=== PATIENT | female | born 1940 ===

== ENCOUNTER 2017-01-07 09:35 | Inpatient (IN) | payer MEDICARE, MEDICAID ==
[2017-01-07] MEDS ORDERED: Piperacillin/Tazobact 3.375 gm 100 ML IV STA (10:01)
[2017-01-07 10:16] LABS: VENOUS BLOOD GAS BASE EXCESS -0.1 mmol/L (0.0-2.0); VENOUS BLOOD GAS PCO2 70 mmHg (40-60); VENOUS BLOOD PH 7.23 (7.32-7.43)
--- NOTE | 2017-01-07 10:20 | RAD ---
HISTORY: Sepsis Patient COMPARISON: 05/11/2016 FINDINGS: LUNGS: Prominent diffuse increased interstitial lung markings suggestive for moderate venous congestion and/or interstitial infiltrates. Prominent patchy consolidative changes in the right mid to lower lung zone as well as the left lung base. Small bilateral pleural effusions. Biapical pleural thickening with upper lobe granulomatous changes. PLEURA: As above. CARDIOVASCULAR: Cardiomegaly. Calcification at the aortic knob. OSSEOUS STRUCTURES: Degenerative changes in the spine and shoulders. VISUALIZED UPPER ABDOMEN: Normal. OTHER FINDINGS: None. IMPRESSION: Prominent diffuse increased interstitial lung markings suggestive for moderate venous congestion and/or interstitial infiltrates. Prominent patchy consolidative changes in the right mid to lower lung zone as well as the left lung base. Small bilateral pleural effusions. Biapical pleural thickening with upper lobe granulomatous changes.
--- NOTE | 2017-01-07 10:34 | C.PDOC ---
History Of Present Illness 76 y/o female brought to ED by ALS from retirement for altered mental status. As per ALS patient was hypoxic and responding poorly to questions. At ed patient was febrile 100.9 and was given bipap. Patient denies pain, fever, chills, nausea, vomiting or any other complaints at this time. Time Seen by Provider: 01/07/17 09:51 Chief Complaint (Nursing): Respiratory Distress History Per: Patient, EMS History/Exam Limitations: Clinical Condition Onset/Duration Of Symptoms: Hrs Current Symptoms Are (Timing): Still Present Past Medical History Reviewed: Historical Data, Nursing Documentation, Vital Signs Vital Signs: Last Vital Signs Temp 100.9 F H 01/07/17 10:47 Pulse 107 H 01/07/17 11:57 Resp 20 01/07/17 11:57 BP 109/66 01/07/17 11:57 Pulse Ox 94 L 01/07/17 12:03 - Medical History PMH: Anemia, Anxiety, Arthritis, Cardia Arrhythmia, COPD, Depression, HTN, Hyperlipidemia, Multiple Sclerosis, Osteoporosis, Peripheral Edema, Pulmonary Embolism, Chronic Kidney Disease, Rheumatoid Arthritis Surgical History: No Surg Hx - [facility] Procedures EXCISION OF TOE NAIL, EXTERNAL APPROACH (05/06/16) INSERT INFUSION DEV IN R INT JUGULAR VEIN, PERC (07/31/15) INSERTION OF INFUSION DEV INTO SUP VENA CAVA, PERC APPROACH (05/06/16) INTRODUCE OF OTH ANTI-INFECT INTO PERIPH VEIN, PERC APPROACH (07/31/15) INTRODUCTION OF VASOPRESSOR INTO PERIPH VEIN, PERC APPROACH (05/06/16) TRANSFUSE NONAUT FROZEN PLASMA IN PERIPH VEIN, PERC (07/31/15) ULTRASONOGRAPHY OF RIGHT JUGULAR VEINS, GUIDANCE (07/31/15) Family History: States: No Known Family Hx - Social History Hx Alcohol Use: No Hx Substance Use: No - Immunization History Hx Tetanus Toxoid Vaccination: No Hx Influenza Vaccination: No Hx Pneumococcal Vaccination: No Review Of Systems Except As Marked, All Systems Reviewed And Found Negative. Constitutional: Negative for: Fever, Chills Cardiovascular: Negative for: Chest Pain Gastrointestinal: Negative for: Nausea, Vomiting Skin: Negative for: Rash Neurological: Positive for: Altered Mental Status. Negative for: Weakness, Numbness Physical Exam - Physical Exam Appears: Non-toxic, No Acute Distress Skin: Warm, Dry, No Rash, Mottled Head: Atraumatic Eye(s): bilateral: Normal Inspection Oral Mucosa: Moist Neck: Normal ROM, Supple Chest: Symmetrical Cardiovascular: Rhythm Regular, No Murmur Respiratory: Normal Breath Sounds, No Rales, Rhonchi (at bilateral base), No Wheezing Gastrointestinal/Abdominal: Soft, No Distention, No Guarding, No Rebound, Other (obese) Rectal: Other (Gross blood ) Neurological/Psych: Oriented x3, Other (Slow to respond to questions) ED Course And Treatment - Laboratory Results Result Diagrams: 01/07/17 10:28 01/07/17 11:54 O2 Sat by Pulse Oximetry: 94 (RA) - Radiology CXR: Interpreted by Me, Viewed By Me CXR Interpretation: Yes: Infiltrates (to right lung field) Medical Decision Making Medical Decision Making: Plan: * Code sepsis was activated and patient was given antibiotics * Discussed with Dr. Dumont who is requesting patient have ICU evaluation. * Dr. Bonilla at the bedside, will admit to ICU Disposition Discussed With Dr.: Janell Bonilla Doctor Will See Patient In The: Hospital Counseled Patient/Family Regarding: Studies Performed - Disposition Disposition Time: 13:43 Condition: CRITICAL Forms: [facility] (Andorran) - Clinical Impression Clinical Impression: Dyspnea, Sepsis - Scribe Statement The provider has reviewed the documentation as recorded by the Scribtrina Rod All medical record entries made by the Scribe were at my direction and personally dictated by me. I have reviewed the chart and agree that the record accurately reflects my personal performance of the history, physical exam, medical decision making, and the department course for this patient. I have also personally directed, reviewed, and agree with the discharge instructions and disposition. Decision To Admit - Pt Status Changed To: Hospital Disposition Of: Inpatient - Admit Certification Admit to Inpatient:: After my assessment, the patient will require hospitalization for at least two midnights. This is because of the severity of symptoms shown, intensity of services needed, and/or the medical risk in this patient being treated as an outpatient. - InPatient: Physician Admission Certification:: sepsis - . Bed Request Type: ICU Patient Diagnosis: Dyspnea, Sepsis
[2017-01-07 10:35] LABS: BASO % 0.3 % (0.0-2.0); HEMATOCRIT 51.1 % (34.0-47.0); LYMPH # 1.4 K/uL (1.0-4.3); LYMPH % 14.2 % (20.0-40.0); MEAN CELL VOLUME 96.1 fL (81.0-99.0); MEAN CORPUSCULAR HEMOGLOBIN 31.6 pg (27.0-31.0); MEAN CORPUSCULAR HGB CONC 32.9 g/dL (33.0-37.0); MEAN PLATELET VOLUME 9.3 fL (7.2-11.7); MONO # 0.3 K/uL (0.0-0.8); MONO % 3.3 % (0.0-10.0); NRBC % 0.4 % (0.0-2.0); PLATELET COUNT 167 K/uL (130-400); WHITE BLOOD COUNT 10.1 K/uL (4.8-10.8)
[2017-01-07] MEDS ORDERED: Vancomycin 1 gm/NS 200 ml 1 GM/200 ML BAG IVPB ONE (11:00)
[2017-01-07 11:09] LABS: NEUTROPHIL 25 % (50-75); TOTAL CELLS COUNTED 100
[2017-01-07] MEDS ORDERED: Piperacillin/Tazobact 3.375 gm 100 ML IVPB ONE (11:19)
[2017-01-07] MEDS ORDERED: Vancomycin 1 GM 1 GM/250 ML BAG IVPB ONE (11:19)
[2017-01-07] MEDS ORDERED: Sodium Chloride 0.9% 250 ML IV ONE (11:47)
[2017-01-07] MEDS ORDERED: Sodium Chloride 0.9% 2,000 ML ONE (11:47)
[2017-01-07 12:16] LABS: ALKALINE PHOSPHATASE 80 U/L (38-126); ALT/SGPT 81 U/L (9-52); AST/SGOT 30 U/L (14-36); BILIRUBIN,TOTAL 1.1 mg/dL (0.2-1.3); BLOOD UREA NITROGEN 46 mg/dL (7-17); CALCIUM 7.7 mg/dl (8.6-10.4); CARBON DIOXIDE 23 mmol/L (22-30); CHLORIDE 104 mmol/L (98-107); GFR AFRICAN-AMERICAN > 60; GLUCOSE,RANDOM 123 mg/dL (65-105); MAGNESIUM 2.1 mg/dL (1.6-2.3); PHOSPHOROUS 5.1 mg/dL (2.5-4.5); POTASSIUM 5.1 mmol/L (3.6-5.2); SODIUM 139 mmol/L (132-148); TOTAL PROTEIN 5.4 g/dL (6.3-8.3)
[2017-01-07 13:05] LABS: RBC URINE 2 /hpf (0-3); URINE BILIRUBIN NEGATIVE (NEGATIVE); URINE BLOOD 1+ (NEGATIVE); URINE COLOR Amber (YELLOW); URINE GLUCOSE (UA) NORMAL (Normal); URINE KETONE NEGATIVE (NEGATIVE); URINE LEUKOCYTE ESTERASE NEG Leu/uL (Negative); URINE PROTEIN 1+ mg/dL (NEGATIVE); WBC URINE 4 /hpf (0-5)
[2017-01-07 13:38] LABS: ABG ALLEN TEST UNABLE; ARTERIAL BLOOD GAS MODE BiPAP; DRAW SITE LR
[2017-01-07] MEDS ORDERED: Albuterol-Ipratrop 3 mg / 0.5 (3 ml) UD ONE (13:43)
--- NOTE | 2017-01-07 17:33 | CP.PCM.CON ---
History of Present Illness - History of Present Illness History of Present Illness: 76 year oll [place] female brought [facility] ED by [facility] from [facility] for altered mental status. As per ALS, patient was hypoxic and responding poorly to questions. At ED, patient was febrile 100.9 and was given bipap. Hemodynamically stable and started on zosyn/vanco. Patient denies pain, fever, chills, nausea, vomiting or any other complaints at this time. PMHx: Anemia, Anxiety, Arthritis, Cardiac Arrhythmia, COPD, Depression, HTN, Hyperlipidemia, Multiple Sclerosis, Osteoporosis, Peripheral Edema, Pulmonary Embolism, Chronic Kidney Disease, Rheumatoid Arthritis PSHx: unknown Home Medications: Dabigatran 75mg po daily, gabapentin 300 mg po daily, lisinopril 5mg po daily, loratadine 10mg po daily, metoprolol 50mg po bid, pantoprazole 40mg vial, prednisone 5mg po daily, ranitidine 150mg po hs, rosuvastatin 5mg po hs Allergies: ascorbic acid, aspirin, iodine SocialHx: unknown, lives in [place] FamHx: unknown Review of Systems - Review of Systems Systems not reviewed;Unavailable: Altered Mental Status, Other (lethargic) Past Patient History - Infectious Disease Hx of Infectious Diseases: None - Tetanus Immunizations Tetanus Immunization: Up to Date - Past Medical History & Family History Past Medical History?: Yes - Past Social History Smoking Status: Never Smoked - CARDIAC Hx Cardia Arrhythmia: Yes Hx Hypertension: Yes Hx Peripheral Edema: Yes - PULMONARY Hx Chronic Obstructive Pulmonary Disease (COPD): Yes Hx Pulmonary Embolism: Yes - NEUROLOGICAL Hx Multiple Sclerosis: Yes - HEENT Hx HEENT Problems: Yes Hx Blind: No Hx Cataracts: Yes Hx Difficulty Chewing: No Hx Epistaxis: No Hx Glaucoma: No Hx Macular Degeneration: No Other/Comment: wears eyeglasses for reading - RENAL Hx Chronic Kidney Disease: Yes - ENDOCRINE/METABOLIC Hx Hyperthyroidism: No Hx Hypothyroidism: No - HEMATOLOGICAL/ONCOLOGICAL Hx Anemia: Yes - INTEGUMENTARY Hx Dermatological Problems: Yes Hx Eczema: Yes Hx Melanoma: No Hx Psoriasis: No Hx Squamous Cell: No Other/Comment: > hx of garvin hong syndrome, unknown precipitant. > hx of bullous pemphigoid - MUSCULOSKELETAL/RHEUMATOLOGICAL Hx Arthritis: Yes Hx Osteoporosis: Yes Hx Rheumatoid Arthritis: Yes - GASTROINTESTINAL Hx Gastrointestinal Disorders: Yes Hx Constipation: Yes - GENITOURINARY/GYNECOLOGICAL Other/Comment: [facility] (as with all patients) - PSYCHIATRIC Hx Anxiety: Yes Hx Depression: Yes Hx Substance Use: No - SURGICAL HISTORY Hx Surgeries: Yes Other/Comment: IVC filter 5-6 years ago for b/l DVT - ANESTHESIA Hx Anesthesia: Yes Hx Anesthesia Reactions: No Hx Malignant Hyperthermia: No Meds Allergies/Adverse Reactions: Allergies Allergy/AdvReac Type Severity Reaction Status Date / Time ascorbic acid Allergy Severe ANAPHYLAXIS Verified 01/07/17 09:45 aspirin Allergy RASH Verified 01/07/17 09:45 iodine Allergy RASH Verified 01/07/17 09:45 Ponds cream Allergy Severe ANAPHYLAXIS Uncoded 05/07/16 00:13 Physical Exam - Head Exam Head Exam: ATRAUMATIC, NORMAL INSPECTION - Eye Exam Eye Exam: EOMI - ENT Exam ENT Exam: Mucous Membranes Moist - Neck Exam Neck exam: Positive for: Normal Inspection. Negative for: Lymphadenopathy - Respiratory Exam Respiratory Exam: Clear to Auscultation Bilateral. absent: Wheezes - Cardiovascular Exam Cardiovascular Exam: Tachycardia, REGULAR RHYTHM, +S1, +S2 - GI/Abdominal Exam GI & Abdominal Exam: Normal Bowel Sounds, Soft. absent: Distended, Firm, Guarding, Hernia - Rectal Exam Rectal Exam: Deferred - Neurological Exam Neurological exam: Altered - Skin Skin Exam: Dry Additional comments: ecchymotic lesions on legs b/l Results - Vital Signs Recent Vital Signs: Last Vital Signs Temp 97.5 F L 01/07/17 13:50 Pulse 102 H 01/07/17 15:52 Resp 20 01/07/17 15:52 BP 114/68 01/07/17 15:52 Pulse Ox 94 L 01/07/17 15:52 - Labs Result Diagrams: 01/07/17 10:28 01/07/17 11:54 Assessment & Plan - Assessment and Plan (Free Text) Assessment: 76 yo F w/ PMHx of Anemia, Anxiety, Arthritis, Cardiac Arrhythmia, COPD, Depression, HTN, Hyperlipidemia, Multiple Sclerosis, Osteoporosis, Peripheral Edema, Pulmonary Embolism, Chronic Kidney Disease, Rheumatoid Arthritis, presents with dyspnea and sepsis. Neuro: lethargic; responsive to verbal stimuli but unable to follow commands ID: sepsis, bands 40, wbc normal, febrile Blood, Urine cultures sent Pulm: hypercapnic respiratory failure Bipap with 100% FiO2 Nephro: elevated BUN, Cr normal monitor urinary output CV: CH[place], [place]np [id number] GI: elevated ALT Prophylaxis: DVT: heparin 5000u sc q8 GI: protonix 40mg ivp daily
[2017-01-07 18:54] LABS: ABG ALLEN TEST POS; ARTERIAL BLOOD HGB O2 SAT 95.9 % (95.0-98.0); CARBOXYHEMOGLOBIN 1.1 % (0.5-1.5); DRAW SITE LBA; HHB 1.8 % (0.0-5.0); METHEMOGLOBIN 1.1 % (0.0-3.0)
[2017-01-07] MEDS: Sodium Chloride 0.9% 1,000 ML IV SCH (20:20)
[2017-01-07 21:55] LABS: ABG ALLEN TEST POS; ARTERIAL BLOOD HGB O2 SAT 95.5 % (95.0-98.0); CARBOXYHEMOGLOBIN 1.1 % (0.5-1.5); DRAW SITE LBA; HHB 2.7 % (0.0-5.0); METHEMOGLOBIN 0.8 % (0.0-3.0)
--- NOTE | 2017-01-07 22:19 | CP.PCM.HP ---
History of Present Illness - History of Present Illness History of Present Illness: CC: pt unresponsive HPI: Called by [facility] nursing staff at around 8 am this morning. They reported that pt was very difficult to arouse and appeared not herself. VS were reported to be in the normal ranges, but with all the pt's co-morbidities and the lack of obvious response from patient, I ordered transfer to this facility for immediate evaluation. Pt has a long history of multiple sclerosis for which treatment has only been symptomatic at best, since pt also refuses any major intervention. At the ER pt did not show an elevation in WBC and yet, pt's BP was on the low side with elevation of her heart rate. She also exhibited labored breathing and initial impression was pneumonia and septic shock. ICU consult made which resulted in patient being admitted to ICU and subsequently intu bated. Present on Admission - Present on Admission Any Indicators Present on Admission: Yes History of DVT/PE: Yes History of Uncontrolled Diabetes: No Urinary Catheter: No Decubitus Ulcer Present: No Review of Systems - Review of Systems Systems not reviewed;Unavailable: Unstable Vital Signs - Constitutional Constitutional: Lethargy, Malaise, Weakness - EENT Eyes: absent: As Per HPI, Blind Spots, Blurred Vision, Change in Vision, Decreased Night Vision, Diplopia, Discharge, Dry Eye, Exophthalmos, Floaters, Irritation, Itchy Eyes, Loss of Peripheral Vision, Pain, Photophobia, Requires Corrective Lenses, Sees Flashes, Spots in Vision, Tunnel Vision, Other Visual Disturbances, Loss of Vision, Other Ears: absent: As Per HPI, Decreased Hearing, Ear Discharge, Ear Pain, Tinnitus, Abnormal Hearing, Disequilibrium, Dizziness, Other Nose/Mouth/Throat: absent: As Per HPI, Epistaxis, Nasal Congestion, Nasal Discharge, Nasal Obstruction, Nasal Trauma, Nose Pain, Post Nasal Drip, Sinus Pain, Sinus Pressure, Bleeding Gums, Change in Voice, Dental Pain, Dry Mouth, Dysphagia, Halitosis, Hoarsness, Lip Swelling, Mouth Lesions, Mouth Pain, Odynophagia, Sore Throat, Throat Swelling, Tongue Swelling, Facial Pain, Neck Pain, Neck Mass, Other - Breasts Breasts: absent: As Per HPI, Change in Shape, Mass, Pain, Nipple Discharge, Nipple Inversion, Skin Changes, Swelling, Other Past Patient History - Infectious Disease Hx of Infectious Diseases: None - Tetanus Immunizations Tetanus Immunization: Up to Date - Past Medical History & Family History Past Medical History?: Yes - Past Social History Smoking Status: Never Smoked - CARDIAC Hx Cardia Arrhythmia: Yes Hx Hypertension: Yes Hx Peripheral Edema: Yes - PULMONARY Hx Chronic Obstructive Pulmonary Disease (COPD): Yes Hx Pulmonary Embolism: Yes - NEUROLOGICAL Hx Multiple Sclerosis: Yes - HEENT Hx HEENT Problems: Yes Hx Blind: No Hx Cataracts: Yes Hx Difficulty Chewing: No Hx Epistaxis: No Hx Glaucoma: No Hx Macular Degeneration: No Other/Comment: wears eyeglasses for reading - RENAL Hx Chronic Kidney Disease: Yes - ENDOCRINE/METABOLIC Hx Hyperthyroidism: No Hx Hypothyroidism: No - HEMATOLOGICAL/ONCOLOGICAL Hx Anemia: Yes - INTEGUMENTARY Hx Dermatological Problems: Yes Hx Eczema: Yes Hx Melanoma: No Hx Psoriasis: No Hx Squamous Cell: No Other/Comment: > hx of garvin hong syndrome, unknown precipitant. > hx of bullous pemphigoid - MUSCULOSKELETAL/RHEUMATOLOGICAL Hx Arthritis: Yes Hx Osteoporosis: Yes Hx Rheumatoid Arthritis: Yes - GASTROINTESTINAL Hx Gastrointestinal Disorders: Yes Hx Constipation: Yes - GENITOURINARY/GYNECOLOGICAL Other/Comment: wears a diaper in the [facility] (as with all patients) - PSYCHIATRIC Hx Anxiety: Yes Hx Depression: Yes Hx Substance Use: No - SURGICAL HISTORY Hx Surgeries: Yes Other/Comment: IVC filter 5-6 years ago for b/l DVT - ANESTHESIA Hx Anesthesia: Yes Hx Anesthesia Reactions: No Hx Malignant Hyperthermia: No Meds Home Medications: Home Medication List Medication Instructions Recorded Confirmed Type Albuterol 0.083% [Albuterol 0.083% 2.5 mg INH RQ4 neb 01/21/17 Rx Inhal Jeri (2.5 mg/3 ml) UD] Medihoney 1 inch TOP DAILY PRN #20 01/21/17 01/07/17 Rx Potassium Chloride [K-Dur 20 mEq 40 meq PO DAILY tab 01/21/17 Rx ER Tab] Rosuvastatin Calcium 2.5 [Crestor] 2.5 mg PO HS tab 01/21/17 Rx Sucralfate [Carafate Oral Susp] 1 gm PO Q6 udc 01/21/17 Rx predniSONE [predniSONE Tab] 20 mg PO BID tab 01/21/17 Rx Allergies/Adverse Reactions: Allergies Allergy/AdvReac Type Severity Reaction Status Date / Time ascorbic acid Allergy Severe ANAPHYLAXIS Verified 01/07/17 09:45 aspirin Allergy RASH Verified 01/07/17 09:45 iodine Allergy RASH Verified 01/07/17 09:45 Ponds cream Allergy Severe ANAPHYLAXIS Uncoded 05/07/16 00:13 Physical Exam - Constitutional Appears: In Acute Distress, Cachectic, Chronically Ill - Head Exam Head Exam: NORMAL INSPECTION Additional comments: intubated - Respiratory Exam Additional comments: under AC vent setting - Cardiovascular Exam Cardiovascular Exam: REGULAR RHYTHM - GI/Abdominal Exam GI & Abdominal Exam: Hypoactive Bowel Sounds - Rectal Exam Rectal Exam: Deferred - Extremities Exam Extremities exam: Positive for: normal inspection - Back Exam Back exam: NORMAL INSPECTION - Neurological Exam Additional comments: unable to evaluate, patient sedated - Psychiatric Exam Additional comments: unable to examine, pt sedated due to vent Results - Vital Signs Recent Vital Signs: Last Vital Signs Temp 97.3 F L 01/07/17 16:30 Pulse 102 H 01/07/17 21:25 Resp 28 H 01/07/17 19:00 BP 115/65 01/07/17 18:31 Pulse Ox 98 01/07/17 19:00 - Labs Result Diagrams: 01/21/17 06:22 01/21/17 06:23 Labs: Laboratory Results - last 24 hr 01/07/17 01/07/17 18:50 21:50 Puncture Site Lba Lba pCO2 73 H* 69 H pO2 109 H 88 HCO3 19.6 L 18.4 L ABG pH 7.13 L* 7.12 L* ABG Total CO2 26.5 24.5 ABG O2 Saturation 98.2 H 97.3 ABG Base Excess -6.7 L -8.3 L ABG Hemoglobin 15.6 14.7 ABG Carboxyhemoglobin 1.1 1.1 POC ABG HHb (Measured) 1.8 2.7 ABG Methemoglobin 1.1 0.8 Jose Maria Test Pos Pos A-a O2 Difference 370.0 254.0 Respiratory Index 3.4 2.9 Hgb O2 Saturation 95.9 95.5 FiO2 80.0 60.0 Inspiratory BiPAP 20 20 Expiratory BiPAP 10 8 Crit Value Called To Dr savannah heart Crit Value Called By Ilia sanidad Ilia [facility] Crit Value Read Back Y Y Blood Gas Notified Time [id number] - EKG Data EKG Interpreted by: Myself - EKG Data When Compared to Previous EKG: No Significant Change Assessment & Plan (1) Respiratory failure Assessment and Plan: pt in severe respiratory distress after arrival at the ER. ICU evaluation requested and pt admitted to ICU, where she progressed to respiratory failure and was intubated. Status: Resolved Priority: High (2) Metabolic acidosis Status: Acute Priority: High (3) HCAP (healthcare-associated pneumonia) Status: Acute Priority: High Comment: consult ID--Dr. Lind (4) Sepsis Status: Acute (5) Multiple sclerosis Status: Chronic Comment: no intervention at this time Decision To Admit - Pt Status Changed To: Hospital Disposition Of: Inpatient - Admit Certification Admit to Inpatient:: After my assessment, the patient will require hospitalization for at least two midnights. This is because of the severity of symptoms shown, intensity of services needed, and/or the medical risk in this patient being treated as an outpatient. - InPatient: Physician Admission Certification:: After my assessment, the patient will require hospitalization for at least two midnights 2ndry to among other things, HCAP Pneumonia with respiratory failure requiring artificial ventilation. This is because of the severity of symptoms shown, intensity of services needed, and/ or the medical risk in this patient being treated as an outpatient. - . Bed Request Type: ICU
[2017-01-08 00:20] LABS: ABG ALLEN TEST POS; ARTERIAL BLOOD GAS MODE BiPAP; ARTERIAL BLOOD HGB O2 SAT 94.1 % (95.0-98.0); CARBOXYHEMOGLOBIN 1.3 % (0.5-1.5); DRAW SITE LR; HHB 3.6 % (0.0-5.0)
[2017-01-08 06:40] LABS: CHLORIDE 107 mmol/L (98-107); SODIUM 141 mmol/L (132-148)
[2017-01-08 06:42] LABS: AST/SGOT 54 U/L (14-36); BILIRUBIN,TOTAL 1.1 mg/dL (0.2-1.3); CARBON DIOXIDE 24 mmol/L (22-30); GFR AFRICAN-AMERICAN > 60
[2017-01-08 06:43] LABS: ALKALINE PHOSPHATASE 99 U/L (38-126); ALT/SGPT 105 U/L (9-52); BLOOD UREA NITROGEN 46 mg/dL (7-17); CALCIUM 8.4 mg/dl (8.6-10.4); GLUCOSE,RANDOM 98 mg/dL (65-105); MAGNESIUM 2.4 mg/dL (1.6-2.3); PHOSPHOROUS 4.8 mg/dL (2.5-4.5); TOTAL PROTEIN 6.1 g/dL (6.3-8.3)
[2017-01-08 06:47] LABS: MEAN PLATELET VOLUME 9.1 fL (7.2-11.7)
[2017-01-08 06:53] LABS: HEMATOCRIT 45.6 % (34.0-47.0); MEAN CELL VOLUME 97.1 fL (81.0-99.0); MEAN CORPUSCULAR HEMOGLOBIN 31.3 pg (27.0-31.0); MEAN CORPUSCULAR HGB CONC 32.2 g/dL (33.0-37.0); PLATELET COUNT 130 K/uL (130-400); RED CELL DISTRIBUTION WIDTH 15.2 % (11.5-14.5); WHITE BLOOD COUNT 8.9 K/uL (4.8-10.8)
[2017-01-08 06:56] LABS: POTASSIUM 4.8 mmol/L (3.6-5.2)
[2017-01-08] MEDS ORDERED: methylPREDNISolone 500 MG in Sodium Chloride 0.9% 100 ML IVPB SCH (09:30)
[2017-01-08 09:45] LABS: LYMPH # 0.4 K/uL (1.0-4.3); MONO # 0.3 K/uL (0.0-0.8)
[2017-01-08 09:49] LABS: NEUTROPHIL 53 % (50-75); TOTAL CELLS COUNTED 100
[2017-01-08] MEDS: Sodium Chloride 0.9% 1,000 ML IV SCH (09:57)
[2017-01-08] MEDS ORDERED: Vancomycin 1 gm/NS 200 ml 1 GM/200 ML BAG IVPB SCH (10:00)
[2017-01-08] MEDS: MethylPREDNISolone 40 mg Vial IVP SCH ×2 (10:03→17:45)
[2017-01-08 10:04] LABS: ABG ALLEN TEST POS; ARTERIAL BLOOD HGB O2 SAT 94.5 % (95.0-98.0); CARBOXYHEMOGLOBIN 1.2 % (0.5-1.5); DRAW SITE R/RAD; HHB 3.4 % (0.0-5.0); METHEMOGLOBIN 0.9 % (0.0-3.0)
[2017-01-08] MEDS: Enoxaparin 80 mg Syringe SC SCH ×2 (11:13→21:26)
[2017-01-08] MEDS: Piperacill/Tazo 3.375gm in Dex 3.375 GM/50 ML BAG IVPB SCH ×2 (11:17→17:46)
[2017-01-08] MEDS ORDERED: Etomidate 20 mg/10ml Inj IV ONE (12:00)
--- NOTE | 2017-01-08 12:04 | CP.PCM.CON ---
History of Present Illness - History of Present Illness History of Present Illness: 76 year oll [place] female brought to ED by ALS from longterm for altered mental status. As per ALS, patient was hypoxic and responding poorly to questions. At ED, patient was febrile 100.9 and was given bipap. Transferred to ICU Being intubated + Blood c/s PMHx: Anemia, Anxiety, Arthritis, Cardiac Arrhythmia, COPD, Depression, HTN, Hyperlipidemia, Multiple Sclerosis, Osteoporosis, Peripheral Edema, Pulmonary Embolism, Chronic Kidney Disease, Rheumatoid Arthritis PSHx: unknown Home Medications: Dabigatran 75mg po daily, gabapentin 300 mg po daily, lisinopril 5mg po daily, loratadine 10mg po daily, metoprolol 50mg po bid, pantoprazole 40mg vial, prednisone 5mg po daily, ranitidine 150mg po hs, rosuvastatin 5mg po hs Allergies: ascorbic acid, aspirin, iodine SocialHx: unknown, lives in [place] Review of Systems - Review of Systems Systems not reviewed;Unavailable: Altered Mental Status, Intubated - Constitutional Constitutional: As Per HPI - EENT Eyes: absent: As Per HPI, Blind Spots, Blurred Vision, Change in Vision, Decreased Night Vision, Diplopia, Discharge, Dry Eye, Exophthalmos, Floaters, Irritation, Itchy Eyes, Loss of Peripheral Vision, Pain, Photophobia, Requires Corrective Lenses, Sees Flashes, Spots in Vision, Tunnel Vision, Other Visual Disturbances, Loss of Vision, Other Ears: absent: As Per HPI, Decreased Hearing, Ear Discharge, Ear Pain, Tinnitus, Abnormal Hearing, Disequilibrium, Dizziness, Other Nose/Mouth/Throat: absent: As Per HPI, Epistaxis, Nasal Congestion, Nasal Discharge, Nasal Obstruction, Nasal Trauma, Nose Pain, Post Nasal Drip, Sinus Pain, Sinus Pressure, Bleeding Gums, Change in Voice, Dental Pain, Dry Mouth, Dysphagia, Halitosis, Hoarsness, Lip Swelling, Mouth Lesions, Mouth Pain, Odynophagia, Sore Throat, Throat Swelling, Tongue Swelling, Facial Pain, Neck Pain, Neck Mass, Other - Breasts Breasts: absent: As Per HPI, Change in Shape, Mass, Pain, Nipple Discharge, Nipple Inversion, Skin Changes, Swelling, Other - Cardiovascular Cardiovascular: As Per HPI - Respiratory Respiratory: As Per HPI - Gastrointestinal Gastrointestinal: absent: As Per HPI, Abdominal Pain, Belching, Bloating, Change in Bowel Habits, Change in Stool Character, Coffee Ground Emesis, Constipation, Cramping, Diarrhea, Dyspepsia, Dysphagia, Early Satiety, Excessive Flatus, Fecal Incontinence, Heartburn, Hematemesis, Hematochezia, Loose Stools, Melena, Nausea, Odynophagia, Temesmus, Vomiting, Other - Genitourinary Genitourinary: absent: As Per HPI, Change in Urinary Stream, Difficulty Urinating, Dysuria, Flank Pain, Hematuria, Pyuria, Nocturia, Urinary Incontinence, Urinary Frequency, Urinary Hesitance, Urinary Urgency, Voiding Freq/Small Amts, Freq UTI, Hx Renal/Bladder Calculi, Hx /Renal Surgery, Bladder Distension, Other - Reproductive: Female Reproductive:Female: absent: As Per HPI, Amenorrhea, Amenorrhea/ Control, Currently Menstual, Cycle <21 Days, Cycle >35 Days, Cycle Variable, Menses 1-7 Days, Menses >/= 8 Days, Menses Variable, Cycle > 4 Weeks Between, No Menses for 6 Months, Heavy Menses, Light Menses, Normal Menses, Spotting Between Cycles , S/P Hysterectomy, Menopausal, Post Menopausal, Premenarche, Abnormal Vaginal Bleeding, Dysmenorrhea, Dyspareunia, Genital Lesions, Genital Pruritis, Pelvic Pain, Prolapse Symptoms, Sexual Dysfunction, Vaginal Discharge, Vaginal Dryness , Vaginal Odor, Vaginal Pruritis, Other - Menstruation Menstruation: absent: As Per HPI, Amenorrhea, Amenorrhea/ Control, Currently Menstual, Cycle <21 Days, Cycle >35 Days, Cycle Variable, Menses 1-7 Days, Menses >/= 8 Days, Menses Variable, Cycle > 4 Weeks Between, No Menses for 6 Months, Heavy Menses, Light Menses, Normal Menses, Spotting Between Cycles , S/P Hysterectomy, Menopausal, Post Menopausal, Premenarche, Abnormal Vaginal Bleeding, Dysmenorrhea, Other - Musculoskeletal Musculoskeletal: absent: As Per HPI, Abnormal Gait, Arthralgias, Atrophy, Back Pain, Deformity, Joint Swelling, Limited Range of Motion, Loss of Height, Muscle Cramps, Muscle Weakness, Myalgias, Neck Pain, Numbness, Radiating Pain into Limb, Stiffness, Tingling, Other - Integumentary Integumentary: absent: As Per HPI, Acne, Alopecia, Bleeding Lesions, Change in Hair, Change in Nails, Change in Pigmentation, Changing Lesions, Dry Skin, Erythema, Furuncle, Hirsutism, Lesions, New Lesions, Non-Healing Lesions, Photosensitivity, Pruritus, Rash, Skin Pain, Skin Ulcer, Sores, Striae, Swelling , Unusual Bruising, Wounds, Jaundice, Other - Neurological Neurological: absent: As Per HPI, Abnormal Gait, Abnormal Hearing, Abnormal Movements, Abnormal Speech, Behavioral Changes, Burning Sensations, Confusion, Convulsions, Disequilibrium, Dizziness, Numbness, Focal Weakness, Frequent Falls , Headaches, Lack of Coordination, Loss of Vision, Memory Loss, Paresthesias, Radicular Pain, Restless Legs, Sensory Deficit, Syncope, Tingling, Tremor, Vertigo, Weakness, Other Visual Disturbances, Other - Psychiatric Psychiatric: absent: As Per HPI, Abnormal Sleep Pattern, Anhedonia, Anxiety, Auditory Hallucinations, Behavioral Changes, Change in Appetite, Change in Libido, Confusion, Depression, Difficulty Concentrating, Hallucinations, Homicidal Ideation, Hopelessness, Irritability, Memory Loss, Mood Swings, Panic Attacks, Paranoia, Suicidal Ideation, Visual Hallucinations, Tactile Hallucinations, Other - Endocrine Endocrine: absent: As Per HPI, Change in Body Appearance, Change in Libido, Cold Intolorance, Deepening of Voice, Excessive Sweating, Fatigue, Flushing, Heat Intolorance, Increase in Ring/Shoe/Hat Size, Palpitations, Polydipsia, Polyphagia, Polyuria, Other - Hematologic/Lymphatic Hematologic: absent: As Per HPI, Easy Bleeding, Easy Bruising, Lymphadenopathy, Other Past Patient History - Infectious Disease Hx of Infectious Diseases: None - Tetanus Immunizations Tetanus Immunization: Up to Date - Past Medical History & Family History Past Medical History?: Yes - Past Social History Smoking Status: Never Smoked - CARDIAC Hx Cardia Arrhythmia: Yes Hx Hypertension: Yes Hx Peripheral Edema: Yes - PULMONARY Hx Chronic Obstructive Pulmonary Disease (COPD): Yes Hx Pulmonary Embolism: Yes - NEUROLOGICAL Hx Multiple Sclerosis: Yes - HEENT Hx HEENT Problems: Yes Hx Blind: No Hx Cataracts: Yes Hx Difficulty Chewing: No Hx Epistaxis: No Hx Glaucoma: No Hx Macular Degeneration: No Other/Comment: wears eyeglasses for reading - RENAL Hx Chronic Kidney Disease: Yes - ENDOCRINE/METABOLIC Hx Hyperthyroidism: No Hx Hypothyroidism: No - HEMATOLOGICAL/ONCOLOGICAL Hx Anemia: Yes - INTEGUMENTARY Hx Dermatological Problems: Yes Hx Eczema: Yes Hx Melanoma: No Hx Psoriasis: No Hx Squamous Cell: No Other/Comment: > hx of garvin hong syndrome, unknown precipitant. > hx of bullous pemphigoid - MUSCULOSKELETAL/RHEUMATOLOGICAL Hx Arthritis: Yes Hx Osteoporosis: Yes Hx Rheumatoid Arthritis: Yes - GASTROINTESTINAL Hx Gastrointestinal Disorders: Yes Hx Constipation: Yes - GENITOURINARY/GYNECOLOGICAL Other/Comment: wears a diaper in the longterm (as with all patients) - PSYCHIATRIC Hx Anxiety: Yes Hx Depression: Yes Hx Substance Use: No - SURGICAL HISTORY Hx Surgeries: Yes Other/Comment: IVC filter 5-6 years ago for b/l DVT - ANESTHESIA Hx Anesthesia: Yes Hx Anesthesia Reactions: No Hx Malignant Hyperthermia: No Meds Allergies/Adverse Reactions: Allergies Allergy/AdvReac Type Severity Reaction Status Date / Time ascorbic acid Allergy Severe ANAPHYLAXIS Verified 01/07/17 09:45 aspirin Allergy RASH Verified 01/07/17 09:45 iodine Allergy RASH Verified 01/07/17 09:45 Ponds cream Allergy Severe ANAPHYLAXIS Uncoded 05/07/16 00:13 - Medications Medications: Current Medications Albuterol/Ipratropium (Duoneb 3 Mg/0.5 Mg (3 Ml) Ud) 3 ml INH RQ6 RAUL Enoxaparin Sodium (Lovenox) 65 mg SC Q12 [facility] Last Admin: 01/08/17 11:13 Dose: 65 mg Furosemide (Lasix) 40 mg IVP DAILY [facility] Last Admin: 01/08/17 09:57 Dose: 40 mg Sodium Chloride (Sodium Chloride 0.9%) 1,000 mls @ 75 mls/hr IV .[id number] [facility] Last Admin: 01/08/17 09:57 Dose: 75 mls/hr Piperacillin Sod/Tazobactam Sod (Zosyn 3.375 Gm Iv Premix) 3.375 gm in 50 mls @ 100 mls/hr IVPB Q8H [facility] Last Admin: 01/08/17 11:17 Dose: 100 mls/hr Vancomycin/Sodium Chloride (Vancocin) 1 gm in 200 mls @ 133 mls/hr IVPB Q12H [facility] Stop: 01/13/17 10:01 Last Admin: 01/08/17 10:01 Dose: 133 mls/hr Methylprednisolone (Solu-Medrol) 40 mg IVP Q8H [facility] Last Admin: 01/08/17 10:03 Dose: 40 mg Pantoprazole Sodium (Protonix Inj) 40 mg IVP DAILY [facility] Last Admin: 01/08/17 09:58 Dose: 40 mg Physical Exam - Constitutional Appears: Toxic, Confused, Cachectic, Chronically Ill - Head Exam Head Exam: ATRAUMATIC, NORMAL INSPECTION, NORMOCEPHALIC - Eye Exam Eye Exam: absent: Scleral icterus - ENT Exam ENT Exam: Mucous Membranes Dry, Normal External Ear Exam - Neck Exam Neck exam: Negative for: Lymphadenopathy, Thyromegaly - Respiratory Exam Respiratory Exam: Decreased Breath Sounds, Rhonchi - Cardiovascular Exam Cardiovascular Exam: REGULAR RHYTHM, +S1, +S2 - GI/Abdominal Exam GI & Abdominal Exam: Diminished Bowel Sounds, Distended - Rectal Exam Rectal Exam: Deferred - Exam Exam: NORMAL INSPECTION - Extremities Exam Extremities exam: Negative for: calf tenderness, pedal edema - Back Exam Back exam: absent: CVA tenderness (L), CVA tenderness (R), paraspinal tenderness - Neurological Exam Neurological exam: Altered, CN II-XII Intact - Psychiatric Exam Psychiatric exam: Depressed - Skin Skin Exam: Dry Results - Vital Signs Recent Vital Signs: Last Vital Signs Temp 97.5 F L 01/08/17 11:58 Pulse 113 H 01/08/17 08:21 Resp 25 H 01/08/17 06:30 BP 146/82 01/08/17 09:57 Pulse Ox 96 01/08/17 06:30 - Labs Result Diagrams: 01/08/17 06:19 01/08/17 06:19 Labs: Laboratory Results - last 24 hr 01/07/17 01/07/17 01/07/17 00:15 11:54 11:54 WBC RBC Hgb Hct MCV MCH MCHC RDW Plt Count MPV Neut % (Auto) Lymph % (Auto) Powell % (Auto) Eos % (Auto) Baso % (Auto) Neut # Lymph # Powell # Eos # Baso # Neutrophils % (Manual) Band Neutrophils % Lymphocytes % (Manual) Monocytes % (Manual) Plasma Cell % (Manual) Platelet Estimate Poikilocytosis (manual Puncture Site Lr pCO2 68 H pO2 73 L HCO3 20.1 L ABG pH 7.16 L* ABG Total CO2 26.3 ABG O2 Saturation 96.3 ABG Base Excess -6.1 L ABG Hemoglobin 15.4 ABG Carboxyhemoglobin 1.3 POC ABG HHb (Measured) 3.6 ABG Methemoglobin 1.0 Jose Maria Test Pos ABG Potassium A-a O2 Difference 270.0 Respiratory Index 3.7 Hgb O2 Saturation 94.1 L Glucose Lactate Vent Mode Bipap FiO2 60.0 Inspiratory BiPAP 20 Expiratory BiPAP 8 Crit Value Called To Rochelle sams/rn Crit Value Called By Roland styles/rt Crit Value Read Back Y Blood Gas Notified Time 25 Sodium 139 Potassium 5.1 Chloride 104 Carbon Dioxide 23 Anion Gap 16 BUN 46 H Creatinine 0.8 Est GFR ( Amer) > 60 Est GFR (Non-Af Amer) > 60 Random Glucose 123 H Lactic Acid Calcium 7.7 L Phosphorus 5.1 H Magnesium 2.1 Total Bilirubin 1.1 AST 30 ALT 81 H D Alkaline Phosphatase 80 Troponin I 0.0750 NT-Pro-B Natriuret Pep 74579 H Total Protein 5.4 L Albumin 2.7 L Globulin 2.7 Albumin/Globulin Ratio 1.0 Arterial Blood Potassium Urine Color Urine Clarity Urine pH Ur Specific [place] Urine Protein Urine Glucose (UA) Urine Ketones Urine Blood Urine Nitrate Urine Bilirubin Urine Urobilinogen Ur Leukocyte Esterase Urine WBC (Auto) Urine RBC (Auto) Ur Squamous Epith Cells Hyaline Casts Blood Type A POSITIVE Antibody Screen Negative 01/07/17 01/07/17 01/07/17 12:56 13:35 18:50 WBC RBC Hgb Hct MCV MCH MCHC RDW Plt Count MPV Neut % (Auto) Lymph % (Auto) Powell % (Auto) Eos % (Auto) Baso % (Auto) Neut # Lymph # [place] # Eos # Baso # Neutrophils % (Manual) Band Neutrophils % Lymphocytes % (Manual) Monocytes % (Manual) Plasma Cell % (Manual) Platelet Estimate Poikilocytosis (manual Puncture Site Lr Lba pCO2 74 H* 73 H* pO2 146 H 109 H HCO3 18.6 L 19.6 L ABG pH 7.10 L* 7.13 L* ABG Total CO2 25.3 26.5 ABG O2 Saturation 99.2 H 98.2 H ABG Base Excess -8.1 L -6.7 L ABG Hemoglobin 15.6 ABG Carboxyhemoglobin 1.1 POC ABG HHb (Measured) 1.8 ABG Methemoglobin 1.1 Jose Maria Test Unable Pos ABG Potassium 4.3 A-a O2 Difference 475.0 370.0 Respiratory Index 3.3 3.4 Hgb O2 Saturation 95.9 Glucose 133 H Lactate 1.1 Vent Mode Bipap FiO2 100.0 80.0 Inspiratory BiPAP 20 20 Expiratory BiPAP 7 10 Crit Value Called To Dr. rossana nuñez Crit Value Called By Barry Morillo [facility] Crit Value Read Back Y Y Blood Gas Notified Time 1333 1854 Sodium 140.0 Potassium Chloride 108.0 H Carbon Dioxide Anion Gap BUN Creatinine Est GFR ( Amer) Est GFR (Non-Af Amer) Random Glucose Lactic Acid Calcium Phosphorus Magnesium Total Bilirubin AST ALT Alkaline Phosphatase Troponin I NT-Pro-B Natriuret Pep Total Protein Albumin Globulin Albumin/Globulin Ratio Arterial Blood Potassium 4.3 Urine Color Johanne Urine Clarity Hazy Urine pH 5.0 Ur Specific [place] 1.021 Urine Protein 1+ H Urine Glucose (UA) Normal Urine Ketones Negative Urine Blood 1+ H Urine Nitrate Negative Urine Bilirubin Negative Urine Urobilinogen 4.0 H Ur Leukocyte Esterase Neg Urine WBC (Auto) 4 Urine RBC (Auto) 2 Ur Squamous Epith Cells < 1 Hyaline Casts 6-10 H Blood Type Antibody Screen 01/07/17 01/08/17 01/08/17 21:50 00:10 06:19 WBC 8.9 RBC 4.69 Hgb 14.7 D Hct 45.6 MCV 97.1 MCH 31.3 H MCHC 32.2 L RDW 15.2 H Plt Count 130 MPV 9.1 Neut % (Auto) 93.0 H Lymph % (Auto) 4.0 L Powell % (Auto) 3.0 Eos % (Auto) 0.0 Baso % (Auto) 0.0 Neut # 8.3 H Lymph # 0.4 L Powell # 0.3 Eos # 0.0 Baso # 0.0 Neutrophils % (Manual) 53 Band Neutrophils % 37 H* Lymphocytes % (Manual) 4 L Monocytes % (Manual) 6 Plasma Cell % (Manual) 1 H Platelet Estimate Normal Poikilocytosis (manual Slight Puncture Site Lba pCO2 69 H pO2 88 HCO3 18.4 L ABG pH 7.12 L* ABG Total CO2 24.5 ABG O2 Saturation 97.3 ABG Base Excess -8.3 L ABG Hemoglobin 14.7 ABG Carboxyhemoglobin 1.1 POC ABG HHb (Measured) 2.7 ABG Methemoglobin 0.8 Jose Maria Test Pos ABG Potassium A-a O2 Difference 254.0 Respiratory Index 2.9 Hgb O2 Saturation 95.5 Glucose Lactate Vent Mode FiO2 60.0 Inspiratory BiPAP 20 Expiratory BiPAP 8 Crit Value Called To Dr heart Crit Value Called By [facility] Crit Value Read Back Y Blood Gas Notified Time 2154 Sodium Potassium Chloride Carbon Dioxide Anion Gap BUN Creatinine Est GFR ( Amer) Est GFR (Non-Af Amer) Random Glucose Lactic Acid Calcium Phosphorus Magnesium Total Bilirubin AST ALT Alkaline Phosphatase Troponin I 0.0620 NT-Pro-B Natriuret Pep Total Protein Albumin Globulin Albumin/Globulin Ratio Arterial Blood Potassium Urine Color Urine Clarity Urine pH Ur Specific [place] Urine Protein Urine Glucose (UA) Urine Ketones Urine Blood Urine Nitrate Urine Bilirubin Urine Urobilinogen Ur Leukocyte Esterase Urine WBC (Auto) Urine RBC (Auto) Ur Squamous Epith Cells Hyaline Casts Blood Type Antibody Screen 01/08/17 01/08/17 01/08/17 06:19 06:19 09:55 WBC RBC Hgb Hct MCV MCH MCHC RDW Plt Count MPV Neut % (Auto) Lymph % (Auto) [place] % (Auto) Eos % (Auto) Baso % (Auto) Neut # Lymph # [place] # Eos # Baso # Neutrophils % (Manual) Band Neutrophils % Lymphocytes % (Manual) Monocytes % (Manual) Plasma Cell % (Manual) Platelet Estimate Poikilocytosis (manual Puncture Site R/rad pCO2 60 H pO2 76 L HCO3 20.4 L ABG pH 7.20 L ABG Total CO2 25.3 ABG O2 Saturation 96.5 ABG Base Excess -5.7 L ABG Hemoglobin 15.4 ABG Carboxyhemoglobin 1.2 POC ABG HHb (Measured) 3.4 ABG Methemoglobin 0.9 Jose Maria Test Pos ABG Potassium A-a O2 Difference 277.0 Respiratory Index 3.6 Hgb O2 Saturation 94.5 L Glucose Lactate Vent Mode FiO2 60.0 Inspiratory BiPAP 20 Expiratory BiPAP 8 Crit Value Called To Crit Value Called By Crit Value Read Back Blood Gas Notified Time Sodium 141 Potassium 4.8 Chloride 107 Carbon Dioxide 24 Anion Gap 15 BUN 46 H Creatinine 0.6 L Est GFR ( Amer) > 60 Est GFR (Non-Af Amer) > 60 Random Glucose 98 Lactic Acid 1.3 Calcium 8.4 L Phosphorus 4.8 H Magnesium 2.4 H Total Bilirubin 1.1 AST 54 H D ALT 105 H D Alkaline Phosphatase 99 Troponin I 0.0600 NT-Pro-B Natriuret Pep 67776 H Total Protein 6.1 L Albumin 3.0 L Globulin 3.1 Albumin/Globulin Ratio 1.0 Arterial Blood Potassium Urine Color Urine Clarity Urine pH Ur Specific [place] Urine Protein Urine Glucose (UA) Urine Ketones Urine Blood Urine Nitrate Urine Bilirubin Urine Urobilinogen Ur Leukocyte Esterase Urine WBC (Auto) Urine RBC (Auto) Ur Squamous Epith Cells Hyaline Casts Blood Type Antibody Screen Assessment & Plan (1) Sepsis Status: Acute (2) Altered mental status Status: Acute (3) Elevated BUN Status: Acute - Assessment and Plan (Free Text) Assessment: sepsi septic shock chf resp failure pneumonia await cultures
[2017-01-08] MEDS: Propofol 10 mg/ml 1,000 MG/100 ML VIAL IV PRN (12:20)
--- NOTE | 2017-01-08 13:31 | CP.CCUPN ---
<Zain Lock - Last Filed: 01/08/17 13:28> CCU Subjective - Physician Review Subjective (Free Text): Patient was seen and examined at bedside today. Patient was lethargic, non- responsive to commands, responsive to painful stimuli. Patient with labored breathing on bipap and was intubated. ROS were unobtainable. 01/08/17 13:29 CCU Objective - Vital Signs / Intake & Output Vital Signs (Last 4 hours): Vital Signs Temp Pulse Resp BP Pulse Ox 01/08/17 12:00 110 H 32 H 96 01/08/17 11:58 97.5 F L 01/08/17 11:50 107 H 25 H 95 01/08/17 11:40 109 H 27 H 95 01/08/17 11:30 108 H 32 H 96 01/08/17 11:20 108 H 28 H 96 01/08/17 11:16 110 H 31 H 148/84 95 01/08/17 11:10 110 H 36 H 95 01/08/17 11:00 111 H 35 H 94 L 01/08/17 10:50 115 H 30 H 96 01/08/17 10:40 111 H 35 H 95 01/08/17 10:30 111 H 13 95 01/08/17 10:20 112 H 31 H 96 01/08/17 10:15 110 H 32 H 161/85 H 97 01/08/17 10:10 111 H 18 97 01/08/17 10:00 111 H 18 97 01/08/17 09:57 146/82 01/08/17 09:50 114 H 27 H 98 01/08/17 09:40 114 H 26 H 98 01/08/17 09:30 114 H 27 H 98 Intake and Output (Last 8hrs): Intake & Output 01/07/17 01/08/17 01/08/17 22:59 06:59 14:59 Intake Total 225 600 Output Total 175 225 Balance 50 375 Weight 142 lb 6.698 oz Intake: Intake, IV Amount 225 600 Left Wrist 0 Right Wrist 225 600 Output: Urine 175 225 Urethral ([place]) 175 225 - Physical Exam Head: Positive for: Atraumatic, Normocephalic Pupils: Positive for: PERRL Mouth: Positive for: Moist Mucous Membranes, Other (w/ dentures) Neck: Negative for: JVD, Lymphadenopathy Respiratory/Chest: Positive for: Respiratory Distress, Wheezes, Other (on ventilator). Negative for: Good Air Exchange Cardiovascular: Positive for: Regular Rate and Rhythm, Normal S1, S2. Negative for: Murmurs, Tachycardic Abdomen: Positive for: Normal Bowel Sounds. Negative for: Distention Upper Extremity: Positive for: NORMAL PULSES. Negative for: Edema Lower Extremity: Positive for: NORMAL PULSES. Negative for: Edema Neurological: Negative for: Speech Normal Skin: Positive for: Warm, Dry, Normal Color Psychiatric: Negative for: Oriented x 3 - Medications Active Medications: Active Medications Generic Name Dose Route Start Last Admin Trade Name Freq PRN Reason Stop Dose Admin Albuterol/Ipratropium 3 ml 01/08/17 14:00 Duoneb 3 Mg/0.5 Mg (3 Ml) Ud INH RQ6 RAUL Enoxaparin Sodium 65 mg 01/08/17 10:00 01/08/17 11:13 Lovenox SC 65 mg Q12 RAUL Administration Furosemide 40 mg 01/08/17 10:00 01/08/17 09:57 Lasix IVP 40 mg DAILY RAUL Administration Sodium Chloride 1,000 mls @ 75 mls/hr 01/07/17 20:15 01/08/17 09:57 Sodium Chloride 0.9% IV 75 mls/hr .[id number] RAUL Administration Piperacillin Sod/Tazobactam Sod 3.375 gm in 50 mls @ 100 mls/hr 01/08/17 10: 30 01/08/17 11:17 Zosyn 3.375 Gm Iv Premix IVPB 100 mls/hr Q8H RAUL Administration Linezolid 600 mg in 300 mls @ 200 mls/hr 01/08/17 12:15 Zyvox 600mg/300ml D5w IVPB Q12H RAUL Propofol 1,000 mg in 100 mls @ 1.938 mls/hr 01/08/17 12:10 01/08/17 12:20 Diprivan IV 20.12 mcg/kg/min .Q24H PRN 7.8 mls/hr TITRATE PER MD ORDER Administration Protocol 5 MCG/KG/MIN Methylprednisolone 40 mg 01/08/17 10:00 01/08/17 10:03 Solu-Medrol IVP 40 mg Q8H RAUL Administration Pantoprazole Sodium 40 mg 01/08/17 10:00 01/08/17 09:58 Protonix Inj IVP 40 mg DAILY RAUL Administration - Patient Studies Lab Studies: Microbiology Studies 01/07/17 10:30 Blood Culture - Preliminary Blood Gram Positive Cocci Gram Stain - Final Lab Studies 01/08/17 01/08/17 01/08/17 Range/Units 09:55 06:19 06:19 WBC (4.8-10.8) K/uL RBC (3.80-5.20) Mil/uL Hgb (11.0-16.0) g/dL Hct (34.0-47.0) % MCV (81.0-99.0) fL MCH (27.0-31.0) pg MCHC (33.0-37.0) g/dL RDW (11.5-14.5) % Plt Count (130-400) K/uL MPV (7.2-11.7) fL Neut % (Auto) (50.0-75.0) % Lymph % (Auto) (20.0-40.0) % J[place] % (Auto) (0.0-10.0) % Eos % (Auto) (0.0-4.0) % Baso % (Auto) (0.0-2.0) % Neut # (1.8-7.0) K/uL Lymph # (1.0-4.3) K/uL J[place] # (0.0-0.8) K/uL Eos # (0.0-0.7) K/uL Baso # (0.0-0.2) K/uL Neutrophils % (Manual) (50-75) % Band Neutrophils % (0-2) % Lymphocytes % (Manual) (20-40) % Monocytes % (Manual) (0-10) % Plasma Cell % (Manual) (0-0) Platelet Estimate (NORMAL) Poikilocytosis (manual Puncture Site R/rad pCO2 60 H (35-45) mm/Hg pO2 76 L (80-100) mm/Hg HCO3 20.4 L (21-28) mmol/L ABG pH 7.20 L (7.35-7.45) ABG Total CO2 25.3 (22-28) mmol/L ABG O2 Saturation 96.5 (95-98) % ABG Base Excess -5.7 L (-2.0-3.0) mmol/L ABG Hemoglobin 15.4 (11.7-17.4) g/dL ABG Carboxyhemoglobin 1.2 (0.5-1.5) % POC ABG HHb (Measured) 3.4 (0.0-5.0) % ABG Methemoglobin 0.9 (0.0-3.0) % Jose Maria Test Pos ABG Potassium (3.6-5.2) mmol/L A-a O2 Difference 277.0 mm/Hg Respiratory Index 3.6 Hgb O2 Saturation 94.5 L (95.0-98.0) % Sodium 141 (132-148) mmol/l Chloride 107 (98-107) mmol/L Glucose (65-105) mg/dl Lactate (0.7-2.1) mmol/L Vent Mode FiO2 60.0 % Inspiratory BiPAP 20 Expiratory BiPAP 8 Crit Value Called To Crit Value Called By Crit Value Read Back Blood Gas Notified Time Potassium 4.8 (3.6-5.2) mmol/L Carbon Dioxide 24 (22-30) mmol/L Anion Gap 15 (10-20) BUN 46 H (7-17) mg/dL Creatinine 0.6 L (0.7-1.2) MG/DL Est GFR ( Amer) > 60 Est GFR (Non-Af Amer) > 60 Random Glucose 98 (65-105) mg/dL Lactic Acid 1.3 (0.7-2.1) mmol/L Calcium 8.4 L (8.6-10.4) mg/dl Phosphorus 4.8 H (2.5-4.5) mg/dL Magnesium 2.4 H (1.6-2.3) mg/dL Total Bilirubin 1.1 (0.2-1.3) mg/dL AST 54 H D (14-36) U/L ALT 105 H D (9-52) U/L Alkaline Phosphatase 99 (38-126) U/L Troponin I 0.0600 (0.00-0.120) ng/mL NT-Pro-B Natriuret Pep 03924 H (0-900) pg/mL Total Protein 6.1 L (6.3-8.3) g/dL Albumin 3.0 L (3.5-5.0) g/dL Globulin 3.1 (2.2-3.9) gm/dL Albumin/Globulin Ratio 1.0 (1.0-2.1) Arterial Blood Potassium (3.6-5.2) mmol/L 01/08/17 01/08/17 01/07/17 Range/Units 06:19 00:10 21:50 WBC 8.9 (4.8-10.8) K/uL RBC 4.69 (3.80-5.20) Mil/uL Hgb 14.7 D (11.0-16.0) g/dL Hct 45.6 (34.0-47.0) % MCV 97.1 (81.0-99.0) fL MCH 31.3 H (27.0-31.0) pg MCHC 32.2 L (33.0-37.0) g/dL RDW 15.2 H (11.5-14.5) % Plt Count 130 (130-400) K/uL MPV 9.1 (7.2-11.7) fL Neut % (Auto) 93.0 H (50.0-75.0) % Lymph % (Auto) 4.0 L (20.0-40.0) % [place] % (Auto) 3.0 (0.0-10.0) % Eos % (Auto) 0.0 (0.0-4.0) % Baso % (Auto) 0.0 (0.0-2.0) % Neut # 8.3 H (1.8-7.0) K/uL Lymph # 0.4 L (1.0-4.3) K/uL J[place] # 0.3 (0.0-0.8) K/uL Eos # 0.0 (0.0-0.7) K/uL Baso # 0.0 (0.0-0.2) K/uL Neutrophils % (Manual) 53 (50-75) % Band Neutrophils % 37 H* (0-2) % Lymphocytes % (Manual) 4 L (20-40) % Monocytes % (Manual) 6 (0-10) % Plasma Cell % (Manual) 1 H (0-0) Platelet Estimate Normal (NORMAL) Poikilocytosis (manual Slight Puncture Site Lba pCO2 69 H (35-45) mm/Hg pO2 88 (80-100) mm/Hg HCO3 18.4 L (21-28) mmol/L ABG pH 7.12 L* (7.35-7.45) ABG Total CO2 24.5 (22-28) mmol/L ABG O2 Saturation 97.3 (95-98) % ABG Base Excess -8.3 L (-2.0-3.0) mmol/L ABG Hemoglobin 14.7 (11.7-17.4) g/dL ABG Carboxyhemoglobin 1.1 (0.5-1.5) % POC ABG HHb (Measured) 2.7 (0.0-5.0) % ABG Methemoglobin 0.8 (0.0-3.0) % Jose Maria Test Pos ABG Potassium (3.6-5.2) mmol/L A-a O2 Difference 254.0 mm/Hg Respiratory Index 2.9 Hgb O2 Saturation 95.5 (95.0-98.0) % Sodium (132-148) mmol/l Chloride (98-107) mmol/L Glucose (65-105) mg/dl Lactate (0.7-2.1) mmol/L Vent Mode FiO2 60.0 % Inspiratory BiPAP 20 Expiratory BiPAP 8 Crit Value Called To Dr heart Crit Value Called By [facility], [place], operated by [facility] Crit Value Read Back Y Blood Gas Notified Time 2154 Potassium (3.6-5.2) mmol/L Carbon Dioxide (22-30) mmol/L Anion Gap (10-20) BUN (7-17) mg/dL Creatinine (0.7-1.2) MG/DL Est GFR ( Amer) Est GFR (Non-Af Amer) Random Glucose (65-105) mg/dL Lactic Acid (0.7-2.1) mmol/L Calcium (8.6-10.4) mg/dl Phosphorus (2.5-4.5) mg/dL Magnesium (1.6-2.3) mg/dL Total Bilirubin (0.2-1.3) mg/dL AST (14-36) U/L ALT (9-52) U/L Alkaline Phosphatase (38-126) U/L Troponin I 0.0620 (0.00-0.120) ng/mL NT-Pro-B Natriuret Pep (0-900) pg/mL Total Protein (6.3-8.3) g/dL Albumin (3.5-5.0) g/dL Globulin (2.2-3.9) gm/dL Albumin/Globulin Ratio (1.0-2.1) Arterial Blood Potassium (3.6-5.2) mmol/L 01/07/17 01/07/17 01/07/17 Range/Units 18:50 13:35 00:15 WBC (4.8-10.8) K/uL RBC (3.80-5.20) Mil/uL Hgb (11.0-16.0) g/dL Hct (34.0-47.0) % MCV (81.0-99.0) fL MCH (27.0-31.0) pg MCHC (33.0-37.0) g/dL RDW (11.5-14.5) % Plt Count (130-400) K/uL MPV (7.2-11.7) fL Neut % (Auto) (50.0-75.0) % Lymph % (Auto) (20.0-40.0) % [place] % (Auto) (0.0-10.0) % Eos % (Auto) (0.0-4.0) % Baso % (Auto) (0.0-2.0) % Neut # (1.8-7.0) K/uL Lymph # (1.0-4.3) K/uL [place] # (0.0-0.8) K/uL Eos # (0.0-0.7) K/uL Baso # (0.0-0.2) K/uL Neutrophils % (Manual) (50-75) % Band Neutrophils % (0-2) % Lymphocytes % (Manual) (20-40) % Monocytes % (Manual) (0-10) % Plasma Cell % (Manual) (0-0) Platelet Estimate (NORMAL) Poikilocytosis (manual Puncture Site Lba Lr Lr pCO2 73 H* 74 H* 68 H (35-45) mm/Hg pO2 109 H 146 H 73 L (80-100) mm/Hg HCO3 19.6 L 18.6 L 20.1 L (21-28) mmol/L ABG pH 7.13 L* 7.10 L* 7.16 L* (7.35-7.45) ABG Total CO2 26.5 25.3 26.3 (22-28) mmol/L ABG O2 Saturation 98.2 H 99.2 H 96.3 (95-98) % ABG Base Excess -6.7 L -8.1 L -6.1 L (-2.0-3.0) mmol/L ABG Hemoglobin 15.6 15.4 (11.7-17.4) g/dL ABG Carboxyhemoglobin 1.1 1.3 (0.5-1.5) % POC ABG HHb (Measured) 1.8 3.6 (0.0-5.0) % ABG Methemoglobin 1.1 1.0 (0.0-3.0) % Jose Maria Test Pos Unable Pos ABG Potassium 4.3 (3.6-5.2) mmol/L A-a O2 Difference 370.0 475.0 270.0 mm/Hg Respiratory Index 3.4 3.3 3.7 Hgb O2 Saturation 95.9 94.1 L (95.0-98.0) % Sodium 140.0 (132-148) mmol/l Chloride 108.0 H (98-107) mmol/L Glucose 133 H (65-105) mg/dl Lactate 1.1 (0.7-2.1) mmol/L Vent Mode Bipap Bipap FiO2 80.0 100.0 60.0 % Inspiratory BiPAP 20 20 20 Expiratory BiPAP 10 7 8 Crit Value Called To Dr savannah sams/rn Crit Value Called By [facility], [place], operated by [facility] Barry styles/rt Crit Value Read Back Y Y Y Blood Gas Notified Time 379 1338 25 Potassium (3.6-5.2) mmol/L Carbon Dioxide (22-30) mmol/L Anion Gap (10-20) BUN (7-17) mg/dL Creatinine (0.7-1.2) MG/DL Est GFR ( Amer) Est GFR (Non-Af Amer) Random Glucose (65-105) mg/dL Lactic Acid (0.7-2.1) mmol/L Calcium (8.6-10.4) mg/dl Phosphorus (2.5-4.5) mg/dL Magnesium (1.6-2.3) mg/dL Total Bilirubin (0.2-1.3) mg/dL AST (14-36) U/L ALT (9-52) U/L Alkaline Phosphatase (38-126) U/L Troponin I (0.00-0.120) ng/mL NT-Pro-B Natriuret Pep (0-900) pg/mL Total Protein (6.3-8.3) g/dL Albumin (3.5-5.0) g/dL Globulin (2.2-3.9) gm/dL Albumin/Globulin Ratio (1.0-2.1) Arterial Blood Potassium 4.3 (3.6-5.2) mmol/L Laboratory Results - last 24 hr 01/07/17 01/07/17 01/07/17 00:15 13:35 18:50 WBC RBC Hgb Hct MCV MCH MCHC RDW Plt Count MPV Neut % (Auto) Lymph % (Auto) [place] % (Auto) Eos % (Auto) Baso % (Auto) Neut # Lymph # J[place] # Eos # Baso # Neutrophils % (Manual) Band Neutrophils % Lymphocytes % (Manual) Monocytes % (Manual) Plasma Cell % (Manual) Platelet Estimate Poikilocytosis (manual Puncture Site Lr Lr Lba pCO2 68 H 74 H* 73 H* pO2 73 L 146 H 109 H HCO3 20.1 L 18.6 L 19.6 L ABG pH 7.16 L* 7.10 L* 7.13 L* ABG Total CO2 26.3 25.3 26.5 ABG O2 Saturation 96.3 99.2 H 98.2 H ABG Base Excess -6.1 L -8.1 L -6.7 L ABG Hemoglobin 15.4 15.6 ABG Carboxyhemoglobin 1.3 1.1 POC ABG HHb (Measured) 3.6 1.8 ABG Methemoglobin 1.0 1.1 Jose Maria Test Pos Unable Pos ABG Potassium 4.3 A-a O2 Difference 270.0 475.0 370.0 Respiratory Index 3.7 3.3 3.4 Hgb O2 Saturation 94.1 L 95.9 Sodium 140.0 Chloride 108.0 H Glucose 133 H Lactate 1.1 Vent Mode Bipap Bipap FiO2 60.0 100.0 80.0 Inspiratory BiPAP 20 20 20 Expiratory BiPAP 8 7 10 Crit Value Called To Rochelle sams/rn Dr. rossana nuñez Crit Value Called By Roland styles/rt Barry presley [facility], [place], operated [facility] Crit Value Read Back Y Y Y Blood Gas Notified Time 8 185 Potassium Carbon Dioxide Anion Gap BUN Creatinine Est GFR ( Amer) Est GFR (Non-Af Amer) Random Glucose Lactic Acid Calcium Phosphorus Magnesium Total Bilirubin AST ALT Alkaline Phosphatase Troponin I NT-Pro-B Natriuret Pep Total Protein Albumin Globulin Albumin/Globulin Ratio Arterial Blood Potassium 4.3 01/07/17 01/08/17 01/08/17 21:50 00:10 06:19 WBC 8.9 RBC 4.69 Hgb 14.7 D Hct 45.6 MCV 97.1 MCH 31.3 H MCHC 32.2 L RDW 15.2 H Plt Count 130 MPV 9.1 Neut % (Auto) 93.0 H Lymph % (Auto) 4.0 L [place] % (Auto) 3.0 Eos % (Auto) 0.0 Baso % (Auto) 0.0 Neut # 8.3 H Lymph # 0.4 L J[place] # 0.3 Eos # 0.0 Baso # 0.0 Neutrophils % (Manual) 53 Band Neutrophils % 37 H* Lymphocytes % (Manual) 4 L Monocytes % (Manual) 6 Plasma Cell % (Manual) 1 H Platelet Estimate Normal Poikilocytosis (manual Slight Puncture Site Lba pCO2 69 H pO2 88 HCO3 18.4 L ABG pH 7.12 L* ABG Total CO2 24.5 ABG O2 Saturation 97.3 ABG Base Excess -8.3 L ABG Hemoglobin 14.7 ABG Carboxyhemoglobin 1.1 POC ABG HHb (Measured) 2.7 ABG Methemoglobin 0.8 Jose Maria Test Pos ABG Potassium A-a O2 Difference 254.0 Respiratory Index 2.9 Hgb O2 Saturation 95.5 Sodium Chloride Glucose Lactate Vent Mode FiO2 60.0 Inspiratory BiPAP 20 Expiratory BiPAP 8 Crit Value Called To Dr heart Crit Value Called By [facility], [place], operated [facility] Crit Value Read Back Y Blood Gas Notified Time 2154 Potassium Carbon Dioxide Anion Gap BUN Creatinine Est GFR ( Amer) Est GFR (Non-Af Amer) Random Glucose Lactic Acid Calcium Phosphorus Magnesium Total Bilirubin AST ALT Alkaline Phosphatase Troponin I 0.0620 NT-Pro-B Natriuret Pep Total Protein Albumin Globulin Albumin/Globulin Ratio Arterial Blood Potassium 01/08/17 01/08/17 01/08/17 06:19 06:19 09:55 WBC RBC Hgb Hct MCV MCH MCHC RDW Plt Count MPV Neut % (Auto) Lymph % (Auto) [place] % (Auto) Eos % (Auto) Baso % (Auto) Neut # Lymph # J[place] # Eos # Baso # Neutrophils % (Manual) Band Neutrophils % Lymphocytes % (Manual) Monocytes % (Manual) Plasma Cell % (Manual) Platelet Estimate Poikilocytosis (manual Puncture Site R/rad pCO2 60 H pO2 76 L HCO3 20.4 L ABG pH 7.20 L ABG Total CO2 25.3 ABG O2 Saturation 96.5 ABG Base Excess -5.7 L ABG Hemoglobin 15.4 ABG Carboxyhemoglobin 1.2 POC ABG HHb (Measured) 3.4 ABG Methemoglobin 0.9 Jose Maria Test Pos ABG Potassium A-a O2 Difference 277.0 Respiratory Index 3.6 Hgb O2 Saturation 94.5 L Sodium 141 Chloride 107 Glucose Lactate Vent Mode FiO2 60.0 Inspiratory BiPAP 20 Expiratory BiPAP 8 Crit Value Called To Crit Value Called By Crit Value Read Back Blood Gas Notified Time Potassium 4.8 Carbon Dioxide 24 Anion Gap 15 BUN 46 H Creatinine 0.6 L Est GFR ( Amer) > 60 Est GFR (Non-Af Amer) > 60 Random Glucose 98 Lactic Acid 1.3 Calcium 8.4 L Phosphorus 4.8 H Magnesium 2.4 H Total Bilirubin 1.1 AST 54 H D ALT 105 H D Alkaline Phosphatase 99 Troponin I 0.0600 NT-Pro-B Natriuret Pep 68280 H Total Protein 6.1 L Albumin 3.0 L Globulin 3.1 Albumin/Globulin Ratio 1.0 Arterial Blood Potassium EKG/Cardiology Studies: Cardiology / EKG Studies 01/07/17 12:37 ELECTROCARDIOGRAM Stat Comment: Mode Of Transportation: BED Reason For Exam: code stroke Isolation: Contact 01/07/17 22:13 ELECTROCARDIOGRAM Routine Comment: pls do at bedside Mode Of Transportation: STRETCHER Reason For Exam: possible CAD/WV Isolation: Contact Special Contact Precautions: Fall Prevention Pressure Ulcer Aspiration Review of Systems - Review of Systems Systems not reviewed;Unavailable: Intubated Assessment/Plan - Assessment and Plan (Free Text) Assessment: 76 yo F w/ PMHx of Anemia, Anxiety, Arthritis, Cardiac Arrhythmia, COPD, Depression, HTN, Hyperlipidemia, Multiple Sclerosis, Osteoporosis, Peripheral Edema, Pulmonary Embolism, Chronic Kidney Disease, Rheumatoid Arthritis, presents with dyspnea and sepsis. Today 01/08/17: Patient was intubated today as breathing labored on bipap and ABG necessitated intubation. Triple lumen catheter placed in right internal jugular vein. Abx started today. Neuro: lethargic; opens eyes to verbal stimuli but unable to follow commands propofol drip ID: sepsis w/ blood culture positive for gram positive cocci, bands 40 on admission, wbc normal, febrile ID, Dr Lind, on board Pip/Tazo 3.375 g iv q8 started 01/08/17 linezolid 600mg iv q12 01/08/17 Blood, Urine cultures sent Pulm: hypercapnic respiratory failure Intubated on vent duoneb q6 methylprednisolone 40mg iv q8 Nephro: elevated BUN, Cr normal monitor urinary output CV: diastolic CHF?, bnp [id number] furosemide 40mg iv daily GI: elevated ALT Prophylaxis: DVT: enoxaparin 65mg sc q12 GI: protonix 40mg ivp daily Fluid: NS iv 75 cc/hr <Corona Payne S - Last Filed: 01/08/17 18:33> CCU Objective - Vital Signs / Intake & Output Vital Signs (Last 4 hours): Vital Signs Pulse Resp BP Pulse Ox 01/08/17 17:44 101/59 L 01/08/17 17:15 90 15 101/59 L 98 01/08/17 17:10 91 H 16 98 01/08/17 17:00 88 16 98 01/08/17 16:50 87 16 99 01/08/17 16:40 101 H 17 98 01/08/17 16:30 92 H 16 99 01/08/17 16:20 87 16 99 01/08/17 16:15 87 16 102/61 98 01/08/17 16:14 88 16 99 01/08/17 16:10 108 H 16 99 01/08/17 16:00 89 16 99 01/08/17 15:50 90 16 99 01/08/17 15:40 93 H 15 100 01/08/17 15:30 88 16 100 01/08/17 15:20 90 16 100 01/08/17 15:15 87 16 100/58 L 100 01/08/17 15:10 86 16 100 01/08/17 15:00 90 16 100 01/08/17 14:50 91 H 16 100 01/08/17 14:40 98 H 100 Intake and Output (Last 8hrs): Intake & Output 01/08/17 01/08/17 01/08/17 06:59 14:59 22:59 Intake Total 600 623.4 248.4 Output Total 225 960 504 Balance 375 -336.6 -255.6 Weight 142 lb 6.698 oz Intake: Intake, IV Amount 600 623.4 248.4 Right Distal Port 23.4 23.4 Internal Jugular Right Proximal Port 150 225 Internal Jugular Right Wrist 600 450 Output: Urine 225 960 504 Urethral ([place]) 225 960 504 - Medications Active Medications: Active Medications Generic Name Dose Route Start Last Admin Trade Name Freq PRN Reason Stop Dose Admin Albuterol/Ipratropium 3 ml 01/08/17 14:00 Duoneb 3 Mg/0.5 Mg (3 Ml) Ud INH RQ6 RAUL Enoxaparin Sodium 65 mg 01/08/17 10:00 01/08/17 11:13 Lovenox SC 65 mg Q12 RAUL Administration Furosemide 40 mg 01/08/17 18:00 01/08/17 17:44 Lasix IVP 40 mg BID RAUL Administration Sodium Chloride 1,000 mls @ 75 mls/hr 01/07/17 20:15 01/08/17 09:57 Sodium Chloride 0.9% IV 75 mls/hr .[id number] RAUL Administration Piperacillin Sod/Tazobactam Sod 3.375 gm in 50 mls @ 100 mls/hr 01/08/17 10: 30 01/08/17 17:46 Zosyn 3.375 Gm Iv Premix IVPB 100 mls/hr Q8H RAUL Administration Linezolid 600 mg in 300 mls @ 200 mls/hr 01/08/17 12:15 01/08/17 13:41 Zyvox 600mg/300ml D5w IVPB 200 mls/hr Q12H RAUL Administration Propofol 1,000 mg in 100 mls @ 1.938 mls/hr 01/08/17 12:10 01/08/17 12:20 Diprivan IV 20.12 mcg/kg/min .Q24H PRN 7.8 mls/hr TITRATE PER MD ORDER Administration Protocol 5 MCG/KG/MIN Lisinopril 5 mg 01/09/17 10:00 Zestril PO DAILY RAUL Methylprednisolone 40 mg 01/08/17 10:00 01/08/17 17:45 Solu-Medrol IVP 40 mg Q8H RAUL Administration Pantoprazole Sodium 40 mg 01/08/17 10:00 01/08/17 09:58 Protonix Inj IVP 40 mg DAILY RAUL Administration Rosuvastatin Calcium 5 mg 01/08/17 22:00 Crestor PO HS RAUL - Patient Studies Lab Studies: Microbiology Studies 01/07/17 10:00 Blood Culture - Preliminary Blood NO GROWTH AFTER 24 HOURS 01/07/17 10:30 Blood Culture - Preliminary Blood Gram Positive Cocci Gram Stain - Final Lab Studies 01/08/17 01/08/17 01/08/17 Range/Units 09:55 06:19 06:19 WBC (4.8-10.8) K/uL RBC (3.80-5.20) Mil/uL Hgb (11.0-16.0) g/dL Hct (34.0-47.0) % MCV (81.0-99.0) fL MCH (27.0-31.0) pg MCHC (33.0-37.0) g/dL RDW (11.5-14.5) % Plt Count (130-400) K/uL MPV (7.2-11.7) fL Neut % (Auto) (50.0-75.0) % Lymph % (Auto) (20.0-40.0) % J[place] % (Auto) (0.0-10.0) % Eos % (Auto) (0.0-4.0) % Baso % (Auto) (0.0-2.0) % Neut # (1.8-7.0) K/uL Lymph # (1.0-4.3) K/uL Jerauld # (0.0-0.8) K/uL Eos # (0.0-0.7) K/uL Baso # (0.0-0.2) K/uL Neutrophils % (Manual) (50-75) % Band Neutrophils % (0-2) % Lymphocytes % (Manual) (20-40) % Monocytes % (Manual) (0-10) % Plasma Cell % (Manual) (0-0) Platelet Estimate (NORMAL) Poikilocytosis (manual Puncture Site R/rad pCO2 60 H (35-45) mm/Hg pO2 76 L (80-100) mm/Hg HCO3 20.4 L (21-28) mmol/L ABG pH 7.20 L (7.35-7.45) ABG Total CO2 25.3 (22-28) mmol/L ABG O2 Saturation 96.5 (95-98) % ABG Base Excess -5.7 L (-2.0-3.0) mmol/L ABG Hemoglobin 15.4 (11.7-17.4) g/dL ABG Carboxyhemoglobin 1.2 (0.5-1.5) % POC ABG HHb (Measured) 3.4 (0.0-5.0) % ABG Methemoglobin 0.9 (0.0-3.0) % Jose Maria Test Pos A-a O2 Difference 277.0 mm/Hg Respiratory Index 3.6 Hgb O2 Saturation 94.5 L (95.0-98.0) % Vent Mode FiO2 60.0 % Inspiratory BiPAP 20 Expiratory BiPAP 8 Crit Value Called To Crit Value Called By Crit Value Read Back Blood Gas Notified Time Sodium 141 (132-148) mmol/L Potassium 4.8 (3.6-5.2) mmol/L Chloride 107 (98-107) mmol/L Carbon Dioxide 24 (22-30) mmol/L Anion Gap 15 (10-20) BUN 46 H (7-17) mg/dL Creatinine 0.6 L (0.7-1.2) MG/DL Est GFR ( Amer) > 60 Est GFR (Non-Af Amer) > 60 Random Glucose 98 (65-105) mg/dL Lactic Acid 1.3 (0.7-2.1) mmol/L Calcium 8.4 L (8.6-10.4) mg/dl Phosphorus 4.8 H (2.5-4.5) mg/dL Magnesium 2.4 H (1.6-2.3) mg/dL Total Bilirubin 1.1 (0.2-1.3) mg/dL AST 54 H D (14-36) U/L ALT 105 H D (9-52) U/L Alkaline Phosphatase 99 (38-126) U/L Troponin I 0.0600 (0.00-0.120) ng/mL NT-Pro-B Natriuret Pep 17236 H (0-900) pg/mL Total Protein 6.1 L (6.3-8.3) g/dL Albumin 3.0 L (3.5-5.0) g/dL Globulin 3.1 (2.2-3.9) gm/dL Albumin/Globulin Ratio 1.0 (1.0-2.1) 01/08/17 01/08/17 01/07/17 Range/Units 06:19 00:10 21:50 WBC 8.9 (4.8-10.8) K/uL RBC 4.69 (3.80-5.20) Mil/uL Hgb 14.7 D (11.0-16.0) g/dL Hct 45.6 (34.0-47.0) % MCV 97.1 (81.0-99.0) fL MCH 31.3 H (27.0-31.0) pg MCHC 32.2 L (33.0-37.0) g/dL RDW 15.2 H (11.5-14.5) % Plt Count 130 (130-400) K/uL MPV 9.1 (7.2-11.7) fL Neut % (Auto) 93.0 H (50.0-75.0) % Lymph % (Auto) 4.0 L (20.0-40.0) % Jerauld % (Auto) 3.0 (0.0-10.0) % Eos % (Auto) 0.0 (0.0-4.0) % Baso % (Auto) 0.0 (0.0-2.0) % Neut # 8.3 H (1.8-7.0) K/uL Lymph # 0.4 L (1.0-4.3) K/uL Jerauld # 0.3 (0.0-0.8) K/uL Eos # 0.0 (0.0-0.7) K/uL Baso # 0.0 (0.0-0.2) K/uL Neutrophils % (Manual) 53 (50-75) % Band Neutrophils % 37 H* (0-2) % Lymphocytes % (Manual) 4 L (20-40) % Monocytes % (Manual) 6 (0-10) % Plasma Cell % (Manual) 1 H (0-0) Platelet Estimate Normal (NORMAL) Poikilocytosis (manual Slight Puncture Site Lba pCO2 69 H (35-45) mm/Hg pO2 88 (80-100) mm/Hg HCO3 18.4 L (21-28) mmol/L ABG pH 7.12 L* (7.35-7.45) ABG Total CO2 24.5 (22-28) mmol/L ABG O2 Saturation 97.3 (95-98) % ABG Base Excess -8.3 L (-2.0-3.0) mmol/L ABG Hemoglobin 14.7 (11.7-17.4) g/dL ABG Carboxyhemoglobin 1.1 (0.5-1.5) % POC ABG HHb (Measured) 2.7 (0.0-5.0) % ABG Methemoglobin 0.8 (0.0-3.0) % Jose Maria Test Pos A-a O2 Difference 254.0 mm/Hg Respiratory Index 2.9 Hgb O2 Saturation 95.5 (95.0-98.0) % Vent Mode FiO2 60.0 % Inspiratory BiPAP 20 Expiratory BiPAP 8 Crit Value Called To Dr heart Crit Value Called By [facility], [place], operated by [facility] Crit Value Read Back Y Blood Gas Notified Time 2154 Sodium (132-148) mmol/L Potassium (3.6-5.2) mmol/L Chloride (98-107) mmol/L Carbon Dioxide (22-30) mmol/L Anion Gap (10-20) BUN (7-17) mg/dL Creatinine (0.7-1.2) MG/DL Est GFR ( Amer) Est GFR (Non-Af Amer) Random Glucose (65-105) mg/dL Lactic Acid (0.7-2.1) mmol/L Calcium (8.6-10.4) mg/dl Phosphorus (2.5-4.5) mg/dL Magnesium (1.6-2.3) mg/dL Total Bilirubin (0.2-1.3) mg/dL AST (14-36) U/L ALT (9-52) U/L Alkaline Phosphatase (38-126) U/L Troponin I 0.0620 (0.00-0.120) ng/mL NT-Pro-B Natriuret Pep (0-900) pg/mL Total Protein (6.3-8.3) g/dL Albumin (3.5-5.0) g/dL Globulin (2.2-3.9) gm/dL Albumin/Globulin Ratio (1.0-2.1) 01/07/17 01/07/17 Range/Units 18:50 00:15 WBC (4.8-10.8) K/uL RBC (3.80-5.20) Mil/uL Hgb (11.0-16.0) g/dL Hct (34.0-47.0) % MCV (81.0-99.0) fL MCH (27.0-31.0) pg MCHC (33.0-37.0) g/dL RDW (11.5-14.5) % Plt Count (130-400) K/uL MPV (7.2-11.7) fL Neut % (Auto) (50.0-75.0) % Lymph % (Auto) (20.0-40.0) % J[place]uld % (Auto) (0.0-10.0) % Eos % (Auto) (0.0-4.0) % Baso % (Auto) (0.0-2.0) % Neut # (1.8-7.0) K/uL Lymph # (1.0-4.3) K/uL Jerauld # (0.0-0.8) K/uL Eos # (0.0-0.7) K/uL Baso # (0.0-0.2) K/uL Neutrophils % (Manual) (50-75) % Band Neutrophils % (0-2) % Lymphocytes % (Manual) (20-40) % Monocytes % (Manual) (0-10) % Plasma Cell % (Manual) (0-0) Platelet Estimate (NORMAL) Poikilocytosis (manual Puncture Site Lba Lr pCO2 73 H* 68 H (35-45) mm/Hg pO2 109 H 73 L (80-100) mm/Hg HCO3 19.6 L 20.1 L (21-28) mmol/L ABG pH 7.13 L* 7.16 L* (7.35-7.45) ABG Total CO2 26.5 26.3 (22-28) mmol/L ABG O2 Saturation 98.2 H 96.3 (95-98) % ABG Base Excess -6.7 L -6.1 L (-2.0-3.0) mmol/L ABG Hemoglobin 15.6 15.4 (11.7-17.4) g/dL ABG Carboxyhemoglobin 1.1 1.3 (0.5-1.5) % POC ABG HHb (Measured) 1.8 3.6 (0.0-5.0) % ABG Methemoglobin 1.1 1.0 (0.0-3.0) % Jose Maria Test Pos Pos A-a O2 Difference 370.0 270.0 mm/Hg Respiratory Index 3.4 3.7 Hgb O2 Saturation 95.9 94.1 L (95.0-98.0) % Vent Mode Bipap FiO2 80.0 60.0 % Inspiratory BiPAP 20 20 Expiratory BiPAP 10 8 Crit Value Called To Dr savannah sams/rn Crit Value Called By Ilia styles/rt Crit Value Read Back Y Y Blood Gas Notified Time 368 25 Sodium (132-148) mmol/L Potassium (3.6-5.2) mmol/L Chloride (98-107) mmol/L Carbon Dioxide (22-30) mmol/L Anion Gap (10-20) BUN (7-17) mg/dL Creatinine (0.7-1.2) MG/DL Est GFR ( Amer) Est GFR (Non-Af Amer) Random Glucose (65-105) mg/dL Lactic Acid (0.7-2.1) mmol/L Calcium (8.6-10.4) mg/dl Phosphorus (2.5-4.5) mg/dL Magnesium (1.6-2.3) mg/dL Total Bilirubin (0.2-1.3) mg/dL AST (14-36) U/L ALT (9-52) U/L Alkaline Phosphatase (38-126) U/L Troponin I (0.00-0.120) ng/mL NT-Pro-B Natriuret Pep (0-900) pg/mL Total Protein (6.3-8.3) g/dL Albumin (3.5-5.0) g/dL Globulin (2.2-3.9) gm/dL Albumin/Globulin Ratio (1.0-2.1) Laboratory Results - last 24 hr 01/07/17 01/07/17 01/07/17 00:15 18:50 21:50 WBC RBC Hgb Hct MCV MCH MCHC RDW Plt Count MPV Neut % (Auto) Lymph % (Auto) [place] % (Auto) Eos % (Auto) Baso % (Auto) Neut # Lymph # [place] # Eos # Baso # Neutrophils % (Manual) Band Neutrophils % Lymphocytes % (Manual) Monocytes % (Manual) Plasma Cell % (Manual) Platelet Estimate Poikilocytosis (manual Puncture Site Lr Lba Lba pCO2 68 H 73 H* 69 H pO2 73 L 109 H 88 HCO3 20.1 L 19.6 L 18.4 L ABG pH 7.16 L* 7.13 L* 7.12 L* ABG Total CO2 26.3 26.5 24.5 ABG O2 Saturation 96.3 98.2 H 97.3 ABG Base Excess -6.1 L -6.7 L -8.3 L ABG Hemoglobin 15.4 15.6 14.7 ABG Carboxyhemoglobin 1.3 1.1 1.1 POC ABG HHb (Measured) 3.6 1.8 2.7 ABG Methemoglobin 1.0 1.1 0.8 Jose Maria Test Pos Pos Pos A-a O2 Difference 270.0 370.0 254.0 Respiratory Index 3.7 3.4 2.9 Hgb O2 Saturation 94.1 L 95.9 95.5 Vent Mode Bipap FiO2 60.0 80.0 60.0 Inspiratory BiPAP 20 20 20 Expiratory BiPAP 8 10 8 Crit Value Called To Rochelle sams/[facility] heart Crit Value Called By Roland styles/rt Ilia sanidad Ilia sanidad Crit Value Read Back Y Y Y Blood Gas Notified Time 25 [id number] Sodium Potassium Chloride Carbon Dioxide Anion Gap BUN Creatinine Est GFR ( Amer) Est GFR (Non-Af Amer) Random Glucose Lactic Acid Calcium Phosphorus Magnesium Total Bilirubin AST ALT Alkaline Phosphatase Troponin I NT-Pro-B Natriuret Pep Total Protein Albumin Globulin Albumin/Globulin Ratio 01/08/17 01/08/17 01/08/17 00:10 06:19 06:19 WBC 8.9 RBC 4.69 Hgb 14.7 D Hct 45.6 MCV 97.1 MCH 31.3 H MCHC 32.2 L RDW 15.2 H Plt Count 130 MPV 9.1 Neut % (Auto) 93.0 H Lymph % (Auto) 4.0 L [place] % (Auto) 3.0 Eos % (Auto) 0.0 Baso % (Auto) 0.0 Neut # 8.3 H Lymph # 0.4 L [place] # 0.3 Eos # 0.0 Baso # 0.0 Neutrophils % (Manual) 53 Band Neutrophils % 37 H* Lymphocytes % (Manual) 4 L Monocytes % (Manual) 6 Plasma Cell % (Manual) 1 H Platelet Estimate Normal Poikilocytosis (manual Slight Puncture Site pCO2 pO2 HCO3 ABG pH ABG Total CO2 ABG O2 Saturation ABG Base Excess ABG Hemoglobin ABG Carboxyhemoglobin POC ABG HHb (Measured) ABG Methemoglobin Jose Maria Test A-a O2 Difference Respiratory Index Hgb O2 Saturation Vent Mode FiO2 Inspiratory BiPAP Expiratory BiPAP Crit Value Called To Crit Value Called By Crit Value Read Back Blood Gas Notified Time Sodium 141 Potassium 4.8 Chloride 107 Carbon Dioxide 24 Anion Gap 15 BUN 46 H Creatinine 0.6 L Est GFR ( Amer) > 60 Est GFR (Non-Af Amer) > 60 Random Glucose 98 Lactic Acid Calcium 8.4 L Phosphorus 4.8 H Magnesium 2.4 H Total Bilirubin 1.1 AST 54 H D ALT 105 H D Alkaline Phosphatase 99 Troponin I 0.0620 0.0600 NT-Pro-B Natriuret Pep 94999 H Total Protein 6.1 L Albumin 3.0 L Globulin 3.1 Albumin/Globulin Ratio 1.0 01/08/17 01/08/17 06:19 09:55 WBC RBC Hgb Hct MCV MCH MCHC RDW Plt Count MPV Neut % (Auto) Lymph % (Auto) [place] % (Auto) Eos % (Auto) Baso % (Auto) Neut # Lymph # [place] # Eos # Baso # Neutrophils % (Manual) Band Neutrophils % Lymphocytes % (Manual) Monocytes % (Manual) Plasma Cell % (Manual) Platelet Estimate Poikilocytosis (manual Puncture Site R/rad pCO2 60 H pO2 76 L HCO3 20.4 L ABG pH 7.20 L ABG Total CO2 25.3 ABG O2 Saturation 96.5 ABG Base Excess -5.7 L ABG Hemoglobin 15.4 ABG Carboxyhemoglobin 1.2 POC ABG HHb (Measured) 3.4 ABG Methemoglobin 0.9 Jose Maria Test Pos A-a O2 Difference 277.0 Respiratory Index 3.6 Hgb O2 Saturation 94.5 L Vent Mode FiO2 60.0 Inspiratory BiPAP 20 Expiratory BiPAP 8 Crit Value Called To Crit Value Called By Crit Value Read Back Blood Gas Notified Time Sodium Potassium Chloride Carbon Dioxide Anion Gap BUN Creatinine Est GFR ( Amer) Est GFR (Non-Af Amer) Random Glucose Lactic Acid 1.3 Calcium Phosphorus Magnesium Total Bilirubin AST ALT Alkaline Phosphatase Troponin I NT-Pro-B Natriuret Pep Total Protein Albumin Globulin Albumin/Globulin Ratio EKG/Cardiology Studies: Cardiology / EKG Studies 01/07/17 22:13 ELECTROCARDIOGRAM Routine Comment: pls do at bedside Mode Of Transportation: STRETCHER Reason For Exam: possible CAD/[place] Isolation: Contact Special Contact Precautions: Fall Prevention Pressure Ulcer Aspiration Attending/Attestation - Attestation I have personally seen and examined this patient.: Yes I have fully participated in the care of the patient.: Yes I have reviewed all pertinent clinical information: Yes Notes (Text): 01/08/17 18:30 Patient seen and examined in the intensive care unit. Case discussed with house staff in the morning. Patient intubated for severe respiratory acidosis/hypercapnia and lethargy Continue IV antibiotics and follow up culture and sensitivity Continue diuretics Patient seen by cardiology Echocardiogram showed normal ejection fraction Triple-lumen catheter inserted Start NGT feeding Case discussed with family at length Critical care time 60 minutes
[2017-01-08] MEDS: Linezolid 600 mg in D5W 300 ml 600 MG/300 ML BAG IVPB SCH (13:41)
[2017-01-08] MEDS: Albuterol-Ipratrop 3 mg / 0.5 (3 ml) UD INH SCH ×3 (13:45→20:04)
--- NOTE | 2017-01-08 14:47 | RAD ---
Chest x-ray single frontal view History: Central line placement. Comparison: 01/07/2017 Findings: Right central venous catheter tip extending to the cavoatrial junction. Endotracheal tube extending into the mid thoracic trachea. Biapical pleural thickening with upper lobe granulomatous changes. Elevated right hemidiaphragm. Small right pleural effusion. Moderate to severe venous congestion with prominent bibasilar airspace opacities. Scattered nodular densities in both lung post. Bilateral hilar prominence. Enlarged ectatic aorta. Calcification at the aortic knob. Degenerative changes in the spine and shoulders. Impression: Right central venous catheter tip extending to the cavoatrial junction. Endotracheal tube extending into the mid thoracic trachea. Biapical pleural thickening with upper lobe granulomatous changes. Elevated right hemidiaphragm. Small right pleural effusion. Moderate to severe venous congestion with prominent bibasilar airspace opacities. Scattered nodular densities in both lung post. Bilateral hilar prominence.
--- NOTE | 2017-01-08 15:00 | CARD ---
APPROVED REPORT EKG Measurement Heart [id number] <Conclusion> Sinus tachycardia Poor R wave progression Respiratory motion artifact inferior leads Abnormal ECG
--- NOTE | 2017-01-08 15:25 | CP.PCM.CON ---
<Jordan Angulo - Last Filed: 01/08/17 15:13> History of Present Illness - History of Present Illness History of Present Illness: Consult Note for Dr. Danielson 76 year old [place] female with post medical history of was brought to [facility] ED from senior care for altered mental status. Patient was lethargic minimally responsive to verbal stimuli in the ED. [place] [address]. Cardiology service was requested to evaluate patient's CHF exacerbation. Unable to obtain detailed ROS due to patient's mental status. PMHx: Anemia, Anxiety, Arthritis, Cardiac Arrhythmia, COPD, Depression, HTN, Hyperlipidemia, MS, Osteoporosis, PE, CKD, RA PSHx: unknown Home Medications: Dabigatran 75mg po daily, gabapentin 300 mg po daily, lisinopril 5mg po daily, loratadine 10mg po daily, metoprolol 50mg po bid, pantoprazole 40mg vial, prednisone 5mg po daily, ranitidine 150mg po hs, rosuvastatin 5mg po hs Allergies: ascorbic acid, aspirin, iodine SocialHx: unknown, lives in [place] FamHx: unknown Review of Systems - Review of Systems Systems not reviewed;Unavailable: Altered Mental Status - Constitutional Constitutional: Lethargy Past Patient History - Infectious Disease Hx of Infectious Diseases: None - Tetanus Immunizations Tetanus Immunization: Up to Date - Past Medical History & Family History Past Medical History?: Yes - Past Social History Smoking Status: Never Smoked - CARDIAC Hx Cardia Arrhythmia: Yes Hx Hypertension: Yes Hx Peripheral Edema: Yes - PULMONARY Hx Chronic Obstructive Pulmonary Disease (COPD): Yes Hx Pulmonary Embolism: Yes - NEUROLOGICAL Hx Multiple Sclerosis: Yes - HEENT Hx HEENT Problems: Yes Hx Blind: No Hx Cataracts: Yes Hx Difficulty Chewing: No Hx Epistaxis: No Hx Glaucoma: No Hx Macular Degeneration: No Other/Comment: wears eyeglasses for reading - RENAL Hx Chronic Kidney Disease: Yes - ENDOCRINE/METABOLIC Hx Hyperthyroidism: No Hx Hypothyroidism: No - HEMATOLOGICAL/ONCOLOGICAL Hx Anemia: Yes - INTEGUMENTARY Hx Dermatological Problems: Yes Hx Eczema: Yes Hx Melanoma: No Hx Psoriasis: No Hx Squamous Cell: No Other/Comment: > hx of garvin hong syndrome, unknown precipitant. > hx of bullous pemphigoid - MUSCULOSKELETAL/RHEUMATOLOGICAL Hx Arthritis: Yes Hx Osteoporosis: Yes Hx Rheumatoid Arthritis: Yes - GASTROINTESTINAL Hx Gastrointestinal Disorders: Yes Hx Constipation: Yes - GENITOURINARY/GYNECOLOGICAL Other/Comment: wears a diaper in the senior care (as with all patients) - PSYCHIATRIC Hx Anxiety: Yes Hx Depression: Yes Hx Substance Use: No - SURGICAL HISTORY Hx Surgeries: Yes Other/Comment: IVC filter 5-6 years ago for b/l DVT - ANESTHESIA Hx Anesthesia: Yes Hx Anesthesia Reactions: No Hx Malignant Hyperthermia: No Meds Allergies/Adverse Reactions: Allergies Allergy/AdvReac Type Severity Reaction Status Date / Time ascorbic acid Allergy Severe ANAPHYLAXIS Verified 01/07/17 09:45 aspirin Allergy RASH Verified 01/07/17 09:45 iodine Allergy RASH Verified 01/07/17 09:45 Ponds cream Allergy Severe ANAPHYLAXIS Uncoded 05/07/16 00:13 - Medications Medications: Current Medications Albuterol/Ipratropium (Duoneb 3 Mg/0.5 Mg (3 Ml) Ud) 3 ml INH RQ6 RAUL Enoxaparin Sodium (Lovenox) 65 mg SC Q12 [facility] Last Admin: 01/08/17 11:13 Dose: 65 mg Furosemide (Lasix) 40 mg IVP BID [facility] Sodium Chloride (Sodium Chloride 0.9%) 1,000 mls @ 75 mls/hr IV .[id number] [facility] Last Admin: 01/08/17 09:57 Dose: 75 mls/hr Piperacillin Sod/Tazobactam Sod (Zosyn 3.375 Gm Iv Premix) 3.375 gm in 50 mls @ 100 mls/hr IVPB Q8H [facility] Last Admin: 01/08/17 11:17 Dose: 100 mls/hr Linezolid (Zyvox 600mg/300ml D5w) 600 mg in 300 mls @ 200 mls/hr IVPB Q12H [facility] Last Admin: 01/08/17 13:41 Dose: 200 mls/hr Propofol (Diprivan) 1,000 mg in 100 mls @ 1.938 mls/hr IV .Q24H PRN; Protocol; 5 MCG/KG/MIN PRN Reason: TITRATE PER MD ORDER Last Admin: 01/08/17 12:20 Dose: 20.12 mcg/kg/min, 7.8 mls/hr Methylprednisolone (Solu-Medrol) 40 mg IVP Q8H [facility] Last Admin: 01/08/17 10:03 Dose: 40 mg Pantoprazole Sodium (Protonix Inj) 40 mg IVP DAILY RAUL Last Admin: 01/08/17 09:58 Dose: 40 mg Physical Exam - Constitutional Appears: No Acute Distress, Chronically Ill - Head Exam Head Exam: ATRAUMATIC, NORMAL INSPECTION - Eye Exam Eye Exam: EOMI - ENT Exam ENT Exam: Mucous Membranes Moist - Respiratory Exam Respiratory Exam: Clear to Auscultation Bilateral, NORMAL BREATHING PATTERN. absent: Respiratory Distress - Cardiovascular Exam Cardiovascular Exam: REGULAR RHYTHM, +S1 - GI/Abdominal Exam GI & Abdominal Exam: Normal Bowel Sounds, Soft. absent: Tenderness - Extremities Exam Extremities exam: Positive for: normal inspection - Neurological Exam Neurological exam: Altered - Skin Skin Exam: Warm Results - Vital Signs Recent Vital Signs: Last Vital Signs Temp 97.5 F L 01/08/17 11:58 Pulse 110 H 01/08/17 12:00 Resp 32 H 01/08/17 12:00 BP 148/84 01/08/17 11:16 Pulse Ox 96 01/08/17 12:00 - Labs Result Diagrams: 01/08/17 06:19 01/08/17 06:19 Labs: Laboratory Results - last 24 hr 01/07/17 01/07/17 01/07/17 00:15 18:50 21:50 WBC RBC Hgb Hct MCV MCH MCHC RDW Plt Count MPV Neut % (Auto) Lymph % (Auto) [place] % (Auto) Eos % (Auto) Baso % (Auto) Neut # Lymph # [place] # Eos # Baso # Neutrophils % (Manual) Band Neutrophils % Lymphocytes % (Manual) Monocytes % (Manual) Plasma Cell % (Manual) Platelet Estimate Poikilocytosis (manual Puncture Site Lr Lba Lba pCO2 68 H 73 H* 69 H pO2 73 L 109 H 88 HCO3 20.1 L 19.6 L 18.4 L ABG pH 7.16 L* 7.13 L* 7.12 L* ABG Total CO2 26.3 26.5 24.5 ABG O2 Saturation 96.3 98.2 H 97.3 ABG Base Excess -6.1 L -6.7 L -8.3 L ABG Hemoglobin 15.4 15.6 14.7 ABG Carboxyhemoglobin 1.3 1.1 1.1 POC ABG HHb (Measured) 3.6 1.8 2.7 ABG Methemoglobin 1.0 1.1 0.8 Jose Maria Test Pos Pos Pos A-a O2 Difference 270.0 370.0 254.0 Respiratory Index 3.7 3.4 2.9 Hgb O2 Saturation 94.1 L 95.9 95.5 Vent Mode Bipap FiO2 60.0 80.0 60.0 Inspiratory BiPAP 20 20 20 Expiratory BiPAP 8 10 8 Crit Value Called To Rochelle sams/rn Dr sav[facility] heart Crit Value Called By Roland styles/rt Ilia sanidad Ilia sanidad Crit Value Read Back Y Y Y Blood Gas Notified Time 1853 Sodium Potassium Chloride Carbon Dioxide Anion Gap BUN Creatinine Est GFR ( Amer) Est GFR (Non-Af Amer) Random Glucose Lactic Acid Calcium Phosphorus Magnesium Total Bilirubin AST ALT Alkaline Phosphatase Troponin I NT-Pro-B Natriuret Pep Total Protein Albumin Globulin Albumin/Globulin Ratio 01/08/17 01/08/17 01/08/17 00:10 06:19 06:19 WBC 8.9 RBC 4.69 Hgb 14.7 D Hct 45.6 MCV 97.1 MCH 31.3 H MCHC 32.2 L RDW 15.2 H Plt Count 130 MPV 9.1 Neut % (Auto) 93.0 H Lymph % (Auto) 4.0 L [place] % (Auto) 3.0 Eos % (Auto) 0.0 Baso % (Auto) 0.0 Neut # 8.3 H Lymph # 0.4 L [place] # 0.3 Eos # 0.0 Baso # 0.0 Neutrophils % (Manual) 53 Band Neutrophils % 37 H* Lymphocytes % (Manual) 4 L Monocytes % (Manual) 6 Plasma Cell % (Manual) 1 H Platelet Estimate Normal Poikilocytosis (manual Slight Puncture Site pCO2 pO2 HCO3 ABG pH ABG Total CO2 ABG O2 Saturation ABG Base Excess ABG Hemoglobin ABG Carboxyhemoglobin POC ABG HHb (Measured) ABG Methemoglobin Jose Maria Test A-a O2 Difference Respiratory Index Hgb O2 Saturation Vent Mode FiO2 Inspiratory BiPAP Expiratory BiPAP Crit Value Called To Crit Value Called By Crit Value Read Back Blood Gas Notified Time Sodium 141 Potassium 4.8 Chloride 107 Carbon Dioxide 24 Anion Gap 15 BUN 46 H Creatinine 0.6 L Est GFR ( Amer) > 60 Est GFR (Non-Af Amer) > 60 Random Glucose 98 Lactic Acid Calcium 8.4 L Phosphorus 4.8 H Magnesium 2.4 H Total Bilirubin 1.1 AST 54 H D ALT 105 H D Alkaline Phosphatase 99 Troponin I 0.0620 0.0600 NT-Pro-B Natriuret Pep 34712 H Total Protein 6.1 L Albumin 3.0 L Globulin 3.1 Albumin/Globulin Ratio 1.0 01/08/17 01/08/17 06:19 09:55 WBC RBC Hgb Hct MCV MCH MCHC RDW Plt Count MPV Neut % (Auto) Lymph % (Auto) [place] % (Auto) Eos % (Auto) Baso % (Auto) Neut # Lymph # [place] # Eos # Baso # Neutrophils % (Manual) Band Neutrophils % Lymphocytes % (Manual) Monocytes % (Manual) Plasma Cell % (Manual) Platelet Estimate Poikilocytosis (manual Puncture Site R/rad pCO2 60 H pO2 76 L HCO3 20.4 L ABG pH 7.20 L ABG Total CO2 25.3 ABG O2 Saturation 96.5 ABG Base Excess -5.7 L ABG Hemoglobin 15.4 ABG Carboxyhemoglobin 1.2 POC ABG HHb (Measured) 3.4 ABG Methemoglobin 0.9 Jose Maria Test Pos A-a O2 Difference 277.0 Respiratory Index 3.6 Hgb O2 Saturation 94.5 L Vent Mode FiO2 60.0 Inspiratory BiPAP 20 Expiratory BiPAP 8 Crit Value Called To Crit Value Called By Crit Value Read Back Blood Gas Notified Time Sodium Potassium Chloride Carbon Dioxide Anion Gap BUN Creatinine Est GFR ( Amer) Est GFR (Non-Af Amer) Random Glucose Lactic Acid 1.3 Calcium Phosphorus Magnesium Total Bilirubin AST ALT Alkaline Phosphatase Troponin I NT-Pro-B Natriuret Pep Total Protein Albumin Globulin Albumin/Globulin Ratio Assessment & Plan - Assessment and Plan (Free Text) Assessment: CHF -BNP [id number] -Echo performed today reviewed: showing adequate EF, mild pulmonary hypertension -Lasix 40mg IV BID -Hold beta blockers due to acute CHF -Monitor Daily weight and I&O HTN -Resume home Lisinopril 10mg H/o PE -Continue Lovenox 65mg SC Q12 Case discussed with attending Dr. Danielson <Florentino Danielson - Last Filed: 01/08/17 23:12> Meds - Medications Medications: Current Medications Albuterol/Ipratropium (Duoneb 3 Mg/0.5 Mg (3 Ml) Ud) 3 ml INH RQ6 [facility] Last Admin: 01/08/17 20:04 Dose: 3 ml Enoxaparin Sodium (Lovenox) 65 mg SC Q12 [facility] Last Admin: 01/08/17 21:26 Dose: 65 mg Furosemide (Lasix) 40 mg IVP BID [facility] Last Admin: 01/08/17 17:44 Dose: 40 mg Sodium Chloride (Sodium Chloride 0.9%) 1,000 mls @ 75 mls/hr IV .[id number] [facility] Last Admin: 01/08/17 09:57 Dose: 75 mls/hr Piperacillin Sod/Tazobactam Sod (Zosyn 3.375 Gm Iv Premix) 3.375 gm in 50 mls @ 100 mls/hr IVPB Q8H [facility] Last Admin: 01/08/17 17:46 Dose: 100 mls/hr Linezolid (Zyvox 600mg/300ml D5w) 600 mg in 300 mls @ 200 mls/hr IVPB Q12H [facility] Last Admin: 01/08/17 13:41 Dose: 200 mls/hr Propofol (Diprivan) 1,000 mg in 100 mls @ 1.938 mls/hr IV .Q24H PRN; Protocol; 5 MCG/KG/MIN PRN Reason: TITRATE PER MD ORDER Last Titration: 01/08/17 20:18 Dose: 15.22 mcg/kg/min, 5.9 mls/hr Lisinopril (Zestril) 5 mg PO DAILY [facility] Methylprednisolone (Solu-Medrol) 40 mg IVP Q8H [facility] Last Admin: 01/08/17 17:45 Dose: 40 mg Pantoprazole Sodium (Protonix Inj) 40 mg IVP DAILY [facility] Last Admin: 01/08/17 09:58 Dose: 40 mg Rosuvastatin Calcium (Crestor) 5 mg PO HS [facility] Last Admin: 01/08/17 21:26 Dose: 5 mg Results - Vital Signs Recent Vital Signs: Last Vital Signs Temp 97.5 F L 01/08/17 11:58 Pulse 92 H 01/08/17 22:15 Resp 16 01/08/17 22:15 BP 105/64 01/08/17 22:15 Pulse Ox 98 01/08/17 22:15 - Labs Result Diagrams: 01/08/17 06:19 01/08/17 06:19 Labs: Laboratory Results - last 24 hr 01/07/17 01/08/17 01/08/17 00:15 00:10 06:19 WBC 8.9 RBC 4.69 Hgb 14.7 D Hct 45.6 MCV 97.1 MCH 31.3 H MCHC 32.2 L RDW 15.2 H Plt Count 130 MPV 9.1 Neut % (Auto) 93.0 H Lymph % (Auto) 4.0 L [place] % (Auto) 3.0 Eos % (Auto) 0.0 Baso % (Auto) 0.0 Neut # 8.3 H Lymph # 0.4 L [place] # 0.3 Eos # 0.0 Baso # 0.0 Neutrophils % (Manual) 53 Band Neutrophils % 37 H* Lymphocytes % (Manual) 4 L Monocytes % (Manual) 6 Plasma Cell % (Manual) 1 H Platelet Estimate Normal Poikilocytosis (manual Slight Puncture Site Lr pCO2 68 H pO2 73 L HCO3 20.1 L ABG pH 7.16 L* ABG Total CO2 26.3 ABG O2 Saturation 96.3 ABG Base Excess -6.1 L ABG Hemoglobin 15.4 ABG Carboxyhemoglobin 1.3 POC ABG HHb (Measured) 3.6 ABG Methemoglobin 1.0 Jose Maria Test Pos A-a O2 Difference 270.0 Respiratory Index 3.7 Hgb O2 Saturation 94.1 L Vent Mode Bipap FiO2 60.0 Inspiratory BiPAP 20 Expiratory BiPAP 8 Crit Value Called To Rochelle sams/rn Crit Value Called By Roland styles/rt Crit Value Read Back Y Blood Gas Notified Time 25 Sodium Potassium Chloride Carbon Dioxide Anion Gap BUN Creatinine Est GFR ( Amer) Est GFR (Non-Af Amer) Random Glucose Lactic Acid Calcium Phosphorus Magnesium Total Bilirubin AST ALT Alkaline Phosphatase Troponin I 0.0620 NT-Pro-B Natriuret Pep Total Protein Albumin Globulin Albumin/Globulin Ratio 01/08/17 01/08/17 01/08/17 06:19 06:19 09:55 WBC RBC Hgb Hct MCV MCH MCHC RDW Plt Count MPV Neut % (Auto) Lymph % (Auto) [place] % (Auto) Eos % (Auto) Baso % (Auto) Neut # Lymph # [place] # Eos # Baso # Neutrophils % (Manual) Band Neutrophils % Lymphocytes % (Manual) Monocytes % (Manual) Plasma Cell % (Manual) Platelet Estimate Poikilocytosis (manual Puncture Site R/rad pCO2 60 H pO2 76 L HCO3 20.4 L ABG pH 7.20 L ABG Total CO2 25.3 ABG O2 Saturation 96.5 ABG Base Excess -5.7 L ABG Hemoglobin 15.4 ABG Carboxyhemoglobin 1.2 POC ABG HHb (Measured) 3.4 ABG Methemoglobin 0.9 Jose Maria Test Pos A-a O2 Difference 277.0 Respiratory Index 3.6 Hgb O2 Saturation 94.5 L Vent Mode FiO2 60.0 Inspiratory BiPAP 20 Expiratory BiPAP 8 Crit Value Called To Crit Value Called By Crit Value Read Back Blood Gas Notified Time Sodium 141 Potassium 4.8 Chloride 107 Carbon Dioxide 24 Anion Gap 15 BUN 46 H Creatinine 0.6 L Est GFR ( Amer) > 60 Est GFR (Non-Af Amer) > 60 Random Glucose 98 Lactic Acid 1.3 Calcium 8.4 L Phosphorus 4.8 H Magnesium 2.4 H Total Bilirubin 1.1 AST 54 H D ALT 105 H D Alkaline Phosphatase 99 Troponin I 0.0600 NT-Pro-B Natriuret Pep 47458 H Total Protein 6.1 L Albumin 3.0 L Globulin 3.1 Albumin/Globulin Ratio 1.0 Assessment & Plan - Assessment and Plan (Free Text) Assessment: Patient seen and evaluated with the medical coder. Plan of care as above
--- NOTE | 2017-01-08 18:29 | PCM.PROC ---
Procedures Attestation:: I certify that I have explained the specified Operation(s) or Procedure(s), risks, benefits and reasonable alternatives to the Patient and/or other person responsible. The opportunity was given to ask questions and all questions answered - Central Line Placement Right Internal Jugular Triple Lumen Catheter Aseptic technique was employed throughout the procedure: Hand Hygiene done prior to procedure, Full sterile barriers (mask, hair cover, sterile gown, sterile gloves), Full body sterile drape, Chloraprep Antiseptic: 30 second prep for IJ or SC sites CVP Time Out Performed: Yes Pt. Placed on Pulse Ox Monitor: Yes Central Line Prep: Chlorhexidine-Alcohol Combination Local Anesthesia Used: Lidocaine 1% Amount of Anesthesia Used (mls): 3 Ultrasound Used for Placement: Yes Central Line Lumen Inserted: triple Central Line Length: 16 cm Post Procedure: Sutured in Place, Good Blood Return, All Ports Aspirated, Flushed, Capped, Sterile Dressing Applied Secured by: Suture Post procedure dressing: Chlorhexidine disc (Biopatch) Post Procedure X-Ray: Yes Patient Tolerated Procedure: Well
--- NOTE | 2017-01-08 18:30 | PCM.PROC ---
Procedures Attestation:: I certify that I have explained the specified Operation(s) or Procedure(s), risks, benefits and reasonable alternatives to the Patient and/or other person responsible. The opportunity was given to ask questions and all questions answered - Intubation Time Out Performed: Yes Sedative: Etomidate Mg Given: 20 Laryngoscope: Corinne ET Tube Size: 7.5 ET Tube Uncuffed: Yes ET Tube Secured at Depth: 19 ET Tube Secured Locarion: Lips ET Tube Placement Confirmation: Visualized Passing Through Cords, Breath Sounds Equal Bilaterally, No Breath Sounds Over Epigastrum, Confirmation w/Capnometry Patient Tolerated Procedure: Well Procedure Immediate Complications: None
--- NOTE | 2017-01-08 19:23 | CARD ---
APPROVED REPORT EXAM: Two-dimensional and M-mode echocardiogram with Doppler and color Doppler. INDICATION Congestive Heart Failure 2D DIMENSIONS IVSd1.1 (0.7-1.1cm)LVDd3.6 (3.9-5.9cm) PWd0.8 (0.7-1.1cm)LVDs2.4 (2.5-4.0cm) FS (%) 33.8 %LVEF (%)63.7 (>50%) M-Mode DIMENSIONS RVDd1.60 (2.1-3.2cm)Left Atrium (MM)2.36 (2.5-4.0cm) IVSd0.83 (0.7-1.1cm)Aortic Root2.78 (2.2-3.7cm) LVDd4.27 (4.0-5.6cm)Aortic Cusp Exc.1.46 (1.5-2.0cm) PWd0.97 (0.7-1.1cm)FS (%) 40 % LVDs2.57 (2.0-3.8cm)LVEF (%)71 (>50%) Mitral Valve MV E Pizqthqj25.1cm/sMV A Jrkyqnxt569.0cm/sE/A ratio0.7 TDI E/Lateral E'0.0E/Medial E'0.0 Tricuspid Valve TR Peak Idggmxnu554sm/sTR Peak Gr.[id number] LEFT VENTRICLE The left ventricle is normal size. There is normal left ventricular wall thickness. The left ventricular function is normal. The left ventricular ejection fraction is within the normal range. About70% No regional wall motion abnormalities noted. indeterminate due to S tach No left ventricle thrombus noted on this study. There is no ventricular septal defect visualized. There is no left ventricular aneurysm. There is no mass noted in the left ventricle. RIGHT VENTRICLE The right ventricle is normal size. There is normal right ventricular wall thickness. The right ventricular systolic function is normal. ATRIA The left atrium size is normal. The right atrium size is normal. The interatrial septum is intact with no evidence for an atrial septal defect. AORTIC VALVE The aortic valve is normal in structure and function. No aortic regurgitation is present. There is no aortic valvular stenosis. There is no aortic valvular vegetation. MITRAL VALVE The mitral valve is normal in structure and function. There is no evidence of mitral valve prolapse. There is no mitral valve stenosis. There is no mitral valve regurgitation noted. TRICUSPID VALVE The tricuspid valve is normal in structure and function. There is mild tricuspid valve regurgitation noted. There is no tricuspid valve prolapse or vegetation. There is no tricuspid valve stenosis. PULMONIC VALVE The pulmonary valve is normal in structure and function. There is no pulmonic valvular regurgitation. There is no pulmonic valvular stenosis. GREAT VESSELS The aortic root is normal in size. The ascending aorta is normal in size. The pulmonary artery is normal. The IVC is normal in size and collapses >50% with inspiration. PERICARDIAL EFFUSION The pericardium appears normal. There is no pleural effusion. <Conclusion> Normal LV systolic function. Normal Doppler
--- NOTE | 2017-01-08 21:56 | CP.PCM.PN ---
Subjective - Date & Time of Evaluation Date of Evaluation: 01/08/17 Time of Evaluation: 21:54 - Subjective Subjective: Pt was on bipap overnight, and remained relatively stable, but pO2 was dropping as time went on, and ICU made call to intubate patient to avert any other complicatons. Pt currently on 100% FiO2. Objective - Vital Signs/Intake and Output Vital Signs (last 24 hours): Temp Pulse Resp BP Pulse Ox 97.5 F L 78 16 104/59 L 98 01/08/17 11:58 01/08/17 21:00 01/08/17 21:00 01/08/17 20:37 01/08/17 21:00 Intake and Output: 01/08/17 01/09/17 18:59 06:59 Intake Total 1002.7 179.7 Output Total 1632 425 Balance -629.3 -245.3 - Medications Medications: Current Medications Albuterol/Ipratropium (Duoneb 3 Mg/0.5 Mg (3 Ml) Ud) 3 ml INH RQ6 [facility] Last Admin: 01/08/17 20:04 Dose: 3 ml Enoxaparin Sodium (Lovenox) 65 mg SC Q12 [facility] Last Admin: 01/08/17 21:26 Dose: 65 mg Furosemide (Lasix) 40 mg IVP BID [facility] Last Admin: 01/08/17 17:44 Dose: 40 mg Sodium Chloride (Sodium Chloride 0.9%) 1,000 mls @ 75 mls/hr IV .[id number] [facility] Last Admin: 01/08/17 09:57 Dose: 75 mls/hr Piperacillin Sod/Tazobactam Sod (Zosyn 3.375 Gm Iv Premix) 3.375 gm in 50 mls @ 100 mls/hr IVPB Q8H [facility] Last Admin: 01/08/17 17:46 Dose: 100 mls/hr Linezolid (Zyvox 600mg/300ml D5w) 600 mg in 300 mls @ 200 mls/hr IVPB Q12H [facility] Last Admin: 01/08/17 13:41 Dose: 200 mls/hr Propofol (Diprivan) 1,000 mg in 100 mls @ 1.938 mls/hr IV .Q24H PRN; Protocol; 5 MCG/KG/MIN PRN Reason: TITRATE PER MD ORDER Last Titration: 01/08/17 20:18 Dose: 15.22 mcg/kg/min, 5.9 mls/hr Lisinopril (Zestril) 5 mg PO DAILY [facility] Methylprednisolone (Solu-Medrol) 40 mg IVP Q8H [facility] Last Admin: 01/08/17 17:45 Dose: 40 mg Pantoprazole Sodium (Protonix Inj) 40 mg IVP DAILY [facility] Last Admin: 01/08/17 09:58 Dose: 40 mg Rosuvastatin Calcium (Crestor) 5 mg PO HS [facility] Last Admin: 01/08/17 21:26 Dose: 5 mg - Labs Labs: 01/08/17 06:19 01/08/17 06:19 PT 11.4 SECONDS (9.7-12.2) 01/07/17 10:28 INR 1.0 01/07/17 10:28 APTT 36 SECONDS (21-34) H 01/07/17 10:28 - Constitutional Appears: Toxic, In Acute Distress, Cachectic, Chronically Ill - Head Exam Head Exam: NORMAL INSPECTION, NORMOCEPHALIC Additional comments: + ET tube and on vent - Eye Exam Eye Exam: Normal appearance - ENT Exam ENT Exam: Normal Exam - Neck Exam Neck Exam: Normal Inspection - Respiratory Exam Respiratory Exam: Decreased Breath Sounds, Rales, Rhonchi - Cardiovascular Exam Cardiovascular Exam: Tachycardia, REGULAR RHYTHM - GI/Abdominal Exam GI & Abdominal Exam: Normal Bowel Sounds - Extremities Exam Extremities Exam: Normal Inspection - Back Exam Back Exam: NORMAL INSPECTION - Neurological Exam Additional comments: unable to examine, in resp distress - Psychiatric Exam Additional comments: sedated - Skin Skin Exam: Cyanosis, Pallor Assessment and Plan (1) HCAP (healthcare-associated pneumonia) Assessment & Plan: no change but on IV abx Status: Acute (2) Metabolic acidosis Assessment & Plan: slowly rising pH to normal Status: Acute
[2017-01-09] MEDS: Linezolid 600 mg in D5W 300 ml 600 MG/300 ML BAG IVPB SCH ×3 (00:41→23:48)
[2017-01-09] MEDS: Albuterol-Ipratrop 3 mg / 0.5 (3 ml) UD INH SCH ×5 (01:17→19:33)
[2017-01-09] MEDS: Propofol 10 mg/ml 1,000 MG/100 ML VIAL IV PRN ×2 (01:36→15:39)
[2017-01-09] MEDS: MethylPREDNISolone 40 mg Vial IVP SCH ×3 (01:43→17:39)
[2017-01-09] MEDS: Piperacill/Tazo 3.375gm in Dex 3.375 GM/50 ML BAG IVPB SCH ×3 (02:39→17:40)
[2017-01-09 06:09] LABS: ABG ALLEN TEST POS; ABG MECHANICAL RATE 16; ARTERIAL BLOOD GAS MODE PRVC; ARTERIAL BLOOD HGB O2 SAT 97.3 % (95.0-98.0); ATERIAL BLOOD GAS PEEP 5; CARBOXYHEMOGLOBIN 0.6 % (0.5-1.5); DRAW SITE L RAD; HHB 1.2 % (0.0-5.0)
[2017-01-09 06:25] LABS: BASO % 0.1 % (0.0-2.0); HEMATOCRIT 38.7 % (34.0-47.0); LYMPH # 0.2 K/uL (1.0-4.3); LYMPH % 2.8 % (20.0-40.0); MEAN CELL VOLUME 94.7 fL (81.0-99.0); MEAN CORPUSCULAR HEMOGLOBIN 31.4 pg (27.0-31.0); MEAN CORPUSCULAR HGB CONC 33.2 g/dL (33.0-37.0); MEAN PLATELET VOLUME 9.6 fL (7.2-11.7); MONO # 0.3 K/uL (0.0-0.8); MONO % 3.4 % (0.0-10.0); NRBC % 1.5 % (0.0-2.0); PLATELET COUNT 129 K/uL (130-400); RED CELL DISTRIBUTION WIDTH 14.9 % (11.5-14.5); WHITE BLOOD COUNT 7.7 K/uL (4.8-10.8)
[2017-01-09] MEDS: Sodium Chloride 0.9% 1,000 ML IV SCH ×2 (06:26→13:21)
[2017-01-09 06:33] LABS: CHLORIDE 106 mmol/L (98-107); POTASSIUM 3.3 mmol/L (3.6-5.2); SODIUM 143 mmol/L (132-148)
[2017-01-09 06:35] LABS: AST/SGOT 22 U/L (14-36); BILIRUBIN,TOTAL 0.9 mg/dL (0.2-1.3); CARBON DIOXIDE 25 mmol/L (22-30); GFR AFRICAN-AMERICAN > 60
[2017-01-09 06:36] LABS: ALB/GLOB RATIO 0.9 (1.0-2.1); ALKALINE PHOSPHATASE 101 U/L (38-126); ALT/SGPT 75 U/L (9-52); BLOOD UREA NITROGEN 44 mg/dL (7-17); GLUCOSE,RANDOM 160 mg/dL (65-105); PHOSPHOROUS 2.3 mg/dL (2.5-4.5); TOTAL PROTEIN 5.8 g/dL (6.3-8.3)
[2017-01-09 06:37] LABS: CALCIUM 7.8 mg/dl (8.6-10.4); MAGNESIUM 2.1 mg/dL (1.6-2.3)
--- NOTE | 2017-01-09 07:22 | CP.CCUPN ---
Addendum entered and electronically signed by Zain Lock 01/09/17 16:45: 76 yo F w/ PMHx of Anemia, Anxiety, Arthritis, Cardiac Arrhythmia, COPD, Depression, HTN, Hyperlipidemia, Multiple Sclerosis, Osteoporosis, Peripheral Edema, Pulmonary Embolism, Chronic Kidney Disease, Rheumatoid Arthritis, presents with dyspnea and sepsis. Today 01/09/17: Vanco d/c and linezolid started per Dr Lind. Still on PRVC, FiO2 decreased to 70%. Neuro: lethargic; opens eyes to verbal stimuli but unable to follow commands propofol drip ID: sepsis w/ blood culture positive for gram positive cocci, bands 40 on admission, wbc normal, febrile ID, Dr Lind, on board Pip/Tazo 3.375 g iv q8 started 01/08/17 linezolid 600mg iv q12 01/08/17 Blood culture positive for Gram positive cocci 01/07, Urine cultures negative Pulm: hypercapnic respiratory failure Intubated on vent duoneb q6 methylprednisolone 40mg iv q8 Nephro: elevated BUN, Cr normal monitor urinary output CV: Acute [place] [id number] furosemide 40mg iv daily GI: elevated ALT Prophylaxis: DVT: enoxaparin 65mg sc q12 GI: protonix 40mg ivp daily Fluid: NS iv 75 cc/hr Original Note: <Zain Lock - Last Filed: 01/09/17 13:16> CCU Subjective - Physician Review Subjective (Free Text): Patient was seen and examined at bedside today. Patient was lethargic, non- responsive to commands, responsive to painful stimuli. Patient with labored breathing on bipap and was intubated. ROS were unobtainable. 01/09/17 13:16 CCU Objective - Vital Signs / Intake & Output Vital Signs (Last 4 hours): Vital Signs Pulse Resp BP Pulse Ox 01/09/17 06:20 65 16 99 01/09/17 06:16 69 16 136/74 99 01/09/17 06:10 69 16 99 01/09/17 06:00 71 16 99 01/09/17 05:50 76 16 99 01/09/17 05:40 73 16 99 01/09/17 05:30 77 16 99 01/09/17 05:20 107 H 17 98 01/09/17 05:15 103 H 18 128/78 98 01/09/17 05:10 99 H 99 01/09/17 05:00 101 H 18 100 01/09/17 04:50 101 H 16 99 01/09/17 04:40 105 H 16 98 01/09/17 04:30 103 H 16 98 01/09/17 04:20 104 H 16 98 01/09/17 04:15 88 17 116/68 98 01/09/17 04:10 88 16 98 01/09/17 04:00 82 16 99 01/09/17 03:50 82 16 99 01/09/17 03:40 84 16 99 01/09/17 03:30 84 16 99 Intake and Output (Last 8hrs): Intake & Output 01/08/17 01/09/17 01/09/17 22:59 06:59 14:59 Intake Total 720.8 777.9 Output Total 1247 560 Balance -526.2 217.9 Intake: IV 68 32 Intake, IV Amount 652.8 745.9 Right Distal Port 52.8 46.9 Internal Jugular Right Proximal Port 600 699 Internal Jugular Output: Urine 1247 560 Urethral (Gilmore) 1247 560 - Physical Exam Head: Positive for: Atraumatic, Normocephalic Pupils: Positive for: PERRL Mouth: Positive for: Moist Mucous Membranes, Other (w/ dentures) Neck: Negative for: JVD, Lymphadenopathy Respiratory/Chest: Positive for: Respiratory Distress, Wheezes, Other (on ventilator). Negative for: Good Air Exchange Cardiovascular: Positive for: Regular Rate and Rhythm, Normal S1, S2. Negative for: Murmurs, Tachycardic Abdomen: Positive for: Normal Bowel Sounds. Negative for: Distention Upper Extremity: Positive for: NORMAL PULSES. Negative for: Edema Lower Extremity: Positive for: NORMAL PULSES. Negative for: Edema Neurological: Negative for: Speech Normal Skin: Positive for: Warm, Dry, Normal Color Psychiatric: Negative for: Oriented x 3 - Medications Active Medications: Active Medications Generic Name Dose Route Start Last Admin Trade Name Freq PRN Reason Stop Dose Admin Albuterol/Ipratropium 3 ml 01/08/17 14:00 01/09/17 01:17 Duoneb 3 Mg/0.5 Mg (3 Ml) Ud INH 3 ml RQ6 RAUL Administration Enoxaparin Sodium 65 mg 01/08/17 10:00 01/08/17 21:26 Lovenox SC 65 mg Q12 RAUL Administration Furosemide 40 mg 01/08/17 18:00 01/08/17 17:44 Lasix IVP 40 mg BID RAUL Administration Sodium Chloride 1,000 mls @ 75 mls/hr 01/07/17 20:15 01/09/17 06:26 Sodium Chloride 0.9% IV 75 mls/hr .[id number] RAUL Administration Piperacillin Sod/Tazobactam Sod 3.375 gm in 50 mls @ 100 mls/hr 01/08/17 10: 30 01/09/17 02:39 Zosyn 3.375 Gm Iv Premix IVPB 100 mls/hr Q8H RAUL Administration Linezolid 600 mg in 300 mls @ 200 mls/hr 01/08/17 12:15 01/09/17 00:41 Zyvox 600mg/300ml D5w IVPB 200 mls/hr Q12H RAUL Administration Propofol 1,000 mg in 100 mls @ 1.938 mls/hr 01/08/17 12:10 01/09/17 01:36 Diprivan IV 15.22 mcg/kg/min .Q24H PRN 5.9 mls/hr TITRATE PER MD ORDER Administration Protocol 5 MCG/KG/MIN Lisinopril 5 mg 01/09/17 10:00 Zestril PO DAILY RAUL Methylprednisolone 40 mg 01/08/17 10:00 01/09/17 01:43 Solu-Medrol IVP 40 mg Q8H RAUL Administration Pantoprazole Sodium 40 mg 01/08/17 10:00 01/08/17 09:58 Protonix Inj IVP 40 mg DAILY RAUL Administration Rosuvastatin Calcium 5 mg 01/08/17 22:00 01/08/17 21:26 Crestor PO 5 mg HS RAUL Administration - Patient Studies Lab Studies: Microbiology Studies 01/07/17 23:00 Blood Culture - Preliminary Blood-Venous NO GROWTH AFTER 24 HOURS 01/07/17 22:30 Blood Culture - Preliminary Blood-Venous NO GROWTH AFTER 24 HOURS 01/07/17 10:00 Blood Culture - Preliminary Blood NO GROWTH AFTER 24 HOURS 01/07/17 10:30 Blood Culture - Preliminary Blood Gram Positive Cocci Gram Stain - Final Lab Studies 01/09/17 01/09/17 01/09/17 Range/Units 06:12 06:12 06:12 WBC 7.7 (4.8-10.8) K/uL RBC 4.09 (3.80-5.20) Mil/uL Hgb 12.9 (11.0-16.0) g/dL Hct 38.7 (34.0-47.0) % MCV 94.7 D (81.0-99.0) fL MCH 31.4 H (27.0-31.0) pg MCHC 33.2 (33.0-37.0) g/dL RDW 14.9 H (11.5-14.5) % Plt Count 129 L (130-400) K/uL MPV 9.6 (7.2-11.7) fL Neut % (Auto) 93.7 H (50.0-75.0) % Lymph % (Auto) 2.8 L (20.0-40.0) % Reagan % (Auto) 3.4 (0.0-10.0) % Eos % (Auto) 0.0 (0.0-4.0) % Baso % (Auto) 0.1 (0.0-2.0) % Neut # 7.2 H (1.8-7.0) K/uL Lymph # 0.2 L (1.0-4.3) K/uL Reagan # 0.3 (0.0-0.8) K/uL Eos # 0.0 (0.0-0.7) K/uL Baso # 0.0 (0.0-0.2) K/uL Neutrophils % (Manual) (50-75) % Band Neutrophils % (0-2) % Lymphocytes % (Manual) (20-40) % Monocytes % (Manual) (0-10) % Plasma Cell % (Manual) (0-0) Platelet Estimate (NORMAL) Poikilocytosis (manual Puncture Site pCO2 (35-45) mm/Hg pO2 (80-100) mm/Hg HCO3 (21-28) mmol/L ABG pH (7.35-7.45) ABG Total CO2 (22-28) mmol/L ABG O2 Saturation (95-98) % ABG Base Excess (-2.0-3.0) mmol/L ABG Hemoglobin (11.7-17.4) g/dL ABG Carboxyhemoglobin (0.5-1.5) % POC ABG HHb (Measured) (0.0-5.0) % ABG Methemoglobin (0.0-3.0) % Jose Maria Test A-a O2 Difference mm/Hg Respiratory Index Hgb O2 Saturation (95.0-98.0) % Vent Mode Mechanical Rate FiO2 % Tidal Volume PEEP Inspiratory BiPAP Expiratory BiPAP Sodium 143 (132-148) mmol/L Potassium 3.3 L (3.6-5.2) mmol/L Chloride 106 (98-107) mmol/L Carbon Dioxide 25 (22-30) mmol/L Anion Gap 15 (10-20) BUN 44 H (7-17) mg/dL Creatinine 0.7 (0.7-1.2) MG/DL Est GFR ( Amer) > 60 Est GFR (Non-Af Amer) > 60 Random Glucose 160 H (65-105) mg/dL Calcium 7.8 L (8.6-10.4) mg/dl Phosphorus 2.3 L (2.5-4.5) mg/dL Magnesium 2.1 (1.6-2.3) mg/dL Total Bilirubin 0.9 (0.2-1.3) mg/dL AST 22 (14-36) U/L ALT 75 H D (9-52) U/L Alkaline Phosphatase 101 (38-126) U/L Total Protein 5.8 L (6.3-8.3) g/dL Albumin 2.8 L (3.5-5.0) g/dL Globulin 3.0 (2.2-3.9) gm/dL Albumin/Globulin Ratio 0.9 L (1.0-2.1) Vancomycin Trough 15.5 H (5.0-10.0) ug/mL 01/09/17 01/08/17 01/08/17 Range/Units 05:07 09:55 06:19 WBC (4.8-10.8) K/uL RBC (3.80-5.20) Mil/uL Hgb (11.0-16.0) g/dL Hct (34.0-47.0) % MCV (81.0-99.0) fL MCH (27.0-31.0) pg MCHC (33.0-37.0) g/dL RDW (11.5-14.5) % Plt Count (130-400) K/uL MPV (7.2-11.7) fL Neut % (Auto) 93.0 H (50.0-75.0) % Lymph % (Auto) 4.0 L (20.0-40.0) % Reagan % (Auto) 3.0 (0.0-10.0) % Eos % (Auto) 0.0 (0.0-4.0) % Baso % (Auto) 0.0 (0.0-2.0) % Neut # 8.3 H (1.8-7.0) K/uL Lymph # 0.4 L (1.0-4.3) K/uL Reagan # 0.3 (0.0-0.8) K/uL Eos # 0.0 (0.0-0.7) K/uL Baso # 0.0 (0.0-0.2) K/uL Neutrophils % (Manual) 53 (50-75) % Band Neutrophils % 37 H* (0-2) % Lymphocytes % (Manual) 4 L (20-40) % Monocytes % (Manual) 6 (0-10) % Plasma Cell % (Manual) 1 H (0-0) Platelet Estimate Normal (NORMAL) Poikilocytosis (manual Slight Puncture Site L rad R/rad pCO2 35 60 H (35-45) mm/Hg pO2 194 H 76 L (80-100) mm/Hg HCO3 25.5 20.4 L (21-28) mmol/L ABG pH 7.45 7.20 L (7.35-7.45) ABG Total CO2 25.4 25.3 (22-28) mmol/L ABG O2 Saturation 98.8 H 96.5 (95-98) % ABG Base Excess 0.7 -5.7 L (-2.0-3.0) mmol/L ABG Hemoglobin 14.1 15.4 (11.7-17.4) g/dL ABG Carboxyhemoglobin 0.6 1.2 (0.5-1.5) % POC ABG HHb (Measured) 1.2 3.4 (0.0-5.0) % ABG Methemoglobin 1.0 0.9 (0.0-3.0) % Jose Maria Test Pos Pos A-a O2 Difference 475.0 277.0 mm/Hg Respiratory Index 2.4 3.6 Hgb O2 Saturation 97.3 94.5 L (95.0-98.0) % Vent Mode Prvc Mechanical Rate 16 FiO2 100.0 60.0 % Tidal Volume 400 PEEP 5 Inspiratory BiPAP 20 Expiratory BiPAP 8 Sodium (132-148) mmol/L Potassium (3.6-5.2) mmol/L Chloride (98-107) mmol/L Carbon Dioxide (22-30) mmol/L Anion Gap (10-20) BUN (7-17) mg/dL Creatinine (0.7-1.2) MG/DL Est GFR ( Amer) Est GFR (Non-Af Amer) Random Glucose (65-105) mg/dL Calcium (8.6-10.4) mg/dl Phosphorus (2.5-4.5) mg/dL Magnesium (1.6-2.3) mg/dL Total Bilirubin (0.2-1.3) mg/dL AST (14-36) U/L ALT (9-52) U/L Alkaline Phosphatase (38-126) U/L Total Protein (6.3-8.3) g/dL Albumin (3.5-5.0) g/dL Globulin (2.2-3.9) gm/dL Albumin/Globulin Ratio (1.0-2.1) Vancomycin Trough (5.0-10.0) ug/mL Laboratory Results - last 24 hr 01/08/17 01/08/17 01/09/17 06:19 09:55 05:07 WBC RBC Hgb Hct MCV MCH MCHC RDW Plt Count MPV Neut % (Auto) 93.0 H Lymph % (Auto) 4.0 L Reagan % (Auto) 3.0 Eos % (Auto) 0.0 Baso % (Auto) 0.0 Neut # 8.3 H Lymph # 0.4 L Reagan # 0.3 Eos # 0.0 Baso # 0.0 Neutrophils % (Manual) 53 Band Neutrophils % 37 H* Lymphocytes % (Manual) 4 L Monocytes % (Manual) 6 Plasma Cell % (Manual) 1 H Platelet Estimate Normal Poikilocytosis (manual Slight Puncture Site R/rad L rad pCO2 60 H 35 pO2 76 L 194 H HCO3 20.4 L 25.5 ABG pH 7.20 L 7.45 ABG Total CO2 25.3 25.4 ABG O2 Saturation 96.5 98.8 H ABG Base Excess -5.7 L 0.7 ABG Hemoglobin 15.4 14.1 ABG Carboxyhemoglobin 1.2 0.6 POC ABG HHb (Measured) 3.4 1.2 ABG Methemoglobin 0.9 1.0 Jose Maria Test Pos Pos A-a O2 Difference 277.0 475.0 Respiratory Index 3.6 2.4 Hgb O2 Saturation 94.5 L 97.3 Vent Mode Prvc Mechanical Rate 16 FiO2 60.0 100.0 Tidal Volume 400 PEEP 5 Inspiratory BiPAP 20 Expiratory BiPAP 8 Sodium Potassium Chloride Carbon Dioxide Anion Gap BUN Creatinine Est GFR ( Amer) Est GFR (Non-Af Amer) Random Glucose Calcium Phosphorus Magnesium Total Bilirubin AST ALT Alkaline Phosphatase Total Protein Albumin Globulin Albumin/Globulin Ratio Vancomycin Trough 01/09/17 01/09/17 01/09/17 06:12 06:12 06:12 WBC 7.7 RBC 4.09 Hgb 12.9 Hct 38.7 MCV 94.7 D MCH 31.4 H MCHC 33.2 RDW 14.9 H Plt Count 129 L MPV 9.6 Neut % (Auto) 93.7 H Lymph % (Auto) 2.8 L Reagan % (Auto) 3.4 Eos % (Auto) 0.0 Baso % (Auto) 0.1 Neut # 7.2 H Lymph # 0.2 L Reagan # 0.3 Eos # 0.0 Baso # 0.0 Neutrophils % (Manual) Band Neutrophils % Lymphocytes % (Manual) Monocytes % (Manual) Plasma Cell % (Manual) Platelet Estimate Poikilocytosis (manual Puncture Site pCO2 pO2 HCO3 ABG pH ABG Total CO2 ABG O2 Saturation ABG Base Excess ABG Hemoglobin ABG Carboxyhemoglobin POC ABG HHb (Measured) ABG Methemoglobin Jose Maria Test A-a O2 Difference Respiratory Index Hgb O2 Saturation Vent Mode Mechanical Rate FiO2 Tidal Volume PEEP Inspiratory BiPAP Expiratory BiPAP Sodium 143 Potassium 3.3 L Chloride 106 Carbon Dioxide 25 Anion Gap 15 BUN 44 H Creatinine 0.7 Est GFR ( Amer) > 60 Est GFR (Non-Af Amer) > 60 Random Glucose 160 H Calcium 7.8 L Phosphorus 2.3 L Magnesium 2.1 Total Bilirubin 0.9 AST 22 ALT 75 H D Alkaline Phosphatase 101 Total Protein 5.8 L Albumin 2.8 L Globulin 3.0 Albumin/Globulin Ratio 0.9 L Vancomycin Trough 15.5 H Review of Systems - Review of Systems Systems not reviewed;Unavailable: Intubated Critical Care Progress Note - Ventilator Checklist PUD Prophalyxis: Yes DVT Prophylaxis: Yes - Extremities/Vascular Does the Patient have a Central Venous Catheter?: Yes Insertion Site: Internal Jugular Vein Does the Patient have a [place] Catheter?: Yes Catheter Insertion Criteria: Need for accurate measurement of output in critically ill patient - Restraints Justification for Restraints: High risk for removing IV access - Prophylaxis GI Prophylaxis GI: PPI - Prophylaxis DVT Prophylaxis DVT: Lovenox Assessment/Plan - Assessment and Plan (Free Text) Assessment: 76 yo F w/ PMHx of Anemia, Anxiety, Arthritis, Cardiac Arrhythmia, COPD, Depression, HTN, Hyperlipidemia, Multiple Sclerosis, Osteoporosis, Peripheral Edema, Pulmonary Embolism, Chronic Kidney Disease, Rheumatoid Arthritis, presents with dyspnea and sepsis. Today 01/09/17: Vanco d/c and linezolid started per Dr Lind. Still on PRVC, FiO2 decreased to 70%. Neuro: lethargic; opens eyes to verbal stimuli but unable to follow commands propofol drip ID: sepsis w/ blood culture positive for gram positive cocci, bands 40 on admission, wbc normal, febrile ID, Dr Lind, on board Pip/Tazo 3.375 g iv q8 started 01/08/17 linezolid 600mg iv q12 01/08/17 Blood culture positive for Gram positive cocci 01/07, Urine cultures negative Pulm: hypercapnic respiratory failure Intubated on vent duoneb q6 methylprednisolone 40mg iv q8 Nephro: elevated BUN, Cr normal monitor urinary output CV: diastolic CHF?, bnp [id number] furosemide 40mg iv daily GI: elevated ALT Prophylaxis: DVT: enoxaparin 65mg sc q12 GI: protonix 40mg ivp daily Fluid: NS iv 75 cc/hr <Jonny Figueroa - Last Filed: 01/10/17 15:38> CCU Objective - Vital Signs / Intake & Output Vital Signs (Last 4 hours): Vital Signs Pulse Resp BP Pulse Ox 01/10/17 15:16 66 17 162/103 H 99 01/10/17 15:10 70 18 99 01/10/17 15:00 65 16 99 01/10/17 14:50 67 23 99 01/10/17 14:40 68 22 99 01/10/17 14:30 68 24 99 01/10/17 14:20 69 24 99 01/10/17 14:16 70 26 H 170/104 H 99 01/10/17 14:10 67 27 H 99 01/10/17 14:00 74 28 H 99 01/10/17 13:50 78 24 99 01/10/17 13:40 75 29 H 97 01/10/17 13:30 80 21 98 01/10/17 13:21 82 29 H 159/96 H 98 01/10/17 13:20 89 29 H 01/10/17 13:16 72 28 H 179/102 H 93 L 01/10/17 13:10 69 28 H 99 01/10/17 13:00 77 28 H 99 01/10/17 12:50 71 26 H 99 01/10/17 12:40 75 17 100 01/10/17 12:30 69 26 H 99 01/10/17 12:20 77 23 98 01/10/17 12:15 78 20 142/87 98 01/10/17 12:10 79 24 99 01/10/17 12:00 80 19 99 01/10/17 11:50 82 21 99 01/10/17 11:40 77 22 99 Intake and Output (Last 8hrs): Intake & Output 01/10/17 01/10/17 01/10/17 06:59 14:59 22:59 Intake Total 1116.2 1248.4 30 Output Total 750 685 Balance 366.2 563.4 30 Weight 136 lb 14.4 oz Intake: IV 100 Intake, IV Amount 846.2 708.4 0 Right Distal Port 47.2 33.4 0 Internal Jugular Right Proximal Port 799 675 Internal Jugular Tube Feeding 170 240 30 Other 300 Output: Urine 750 685 Urethral (Gilmore) 750 685 - Medications Active Medications: Active Medications Generic Name Dose Route Start Last Admin Trade Name Freq PRN Reason Stop Dose Admin Albuterol/Ipratropium 3 ml 01/08/17 14:00 01/10/17 14:00 Duoneb 3 Mg/0.5 Mg (3 Ml) Ud INH 3 ml RQ6 RAUL Administration Enoxaparin Sodium 65 mg 01/08/17 10:00 01/10/17 12:19 Lovenox SC 65 mg Q12 RAUL Administration Furosemide 40 mg 01/08/17 18:00 01/10/17 09:56 Lasix IVP 40 mg BID RAUL Administration Guaifenesin 200 mg 01/10/17 11:57 Robitussin PO Q4H PRN Cough and congestion Piperacillin Sod/Tazobactam Sod 3.375 gm in 50 mls @ 100 mls/hr 01/08/17 10: 30 01/10/17 11:40 Zosyn 3.375 Gm Iv Premix IVPB 100 mls/hr Q8H RAUL Administration Linezolid 600 mg in 300 mls @ 200 mls/hr 01/08/17 12:15 01/10/17 12:21 Zyvox 600mg/300ml D5w IVPB 200 mls/hr Q12H RAUL Administration Lisinopril 5 mg 01/09/17 10:00 01/10/17 09:54 Zestril PO 5 mg DAILY RAUL Administration Methylprednisolone 40 mg 01/08/17 10:00 01/10/17 09:55 Solu-Medrol IVP 40 mg Q8H RAUL Administration Pantoprazole Sodium 40 mg 01/08/17 10:00 01/10/17 09:55 Protonix Inj IVP 40 mg DAILY RAUL Administration Rosuvastatin Calcium 5 mg 01/08/17 22:00 01/09/17 21:29 Crestor PO 5 mg HS RAUL Administration - Patient Studies Lab Studies: Microbiology Studies 01/07/17 10:30 Blood Culture - Final Blood Coagulase Neg Staphylococcus Gram Stain - Final 01/07/17 22:30 S.aureus & Coag-Neg Staph PNA FISH - Final Blood-Venous Blood Culture - Preliminary Staphylococcus Sp Coag Neg Gram Stain - Final 01/07/17 23:00 Blood Culture - Preliminary Blood-Venous NO GROWTH AFTER 48 HOURS 01/07/17 10:00 Blood Culture - Preliminary Blood NO GROWTH AFTER 48 HOURS 01/07/17 18:52 MRSA Culture (Admit) - Final Naris MRSA NOT DETECTED 09/18/17 Unknown Urine Culture - Final Urine No Growth (<1,000 CFU/ML) Lab Studies 01/10/17 01/10/17 01/10/17 Range/Units 06:16 06:16 05:16 WBC 8.8 (4.8-10.8) K/uL RBC 4.06 (3.80-5.20) Mil/uL Hgb 12.8 (11.0-16.0) g/dL Hct 37.4 (34.0-47.0) % MCV 92.1 D (81.0-99.0) fL MCH 31.5 H (27.0-31.0) pg MCHC 34.2 (33.0-37.0) g/dL RDW 14.7 H (11.5-14.5) % Plt Count 132 (130-400) K/uL MPV 9.4 (7.2-11.7) fL Neut % (Auto) 93.1 H (50.0-75.0) % Lymph % (Auto) 3.0 L (20.0-40.0) % Reagan % (Auto) 3.8 (0.0-10.0) % Eos % (Auto) 0.0 (0.0-4.0) % Baso % (Auto) 0.1 (0.0-2.0) % Neut # 8.2 H (1.8-7.0) K/uL Lymph # 0.3 L (1.0-4.3) K/uL Reagan # 0.3 (0.0-0.8) K/uL Eos # 0.0 (0.0-0.7) K/uL Baso # 0.0 (0.0-0.2) K/uL Neutrophils % (Manual) 74 (50-75) % Band Neutrophils % 14 H* (0-2) % Lymphocytes % (Manual) 6 L (20-40) % Monocytes % (Manual) 6 (0-10) % Platelet Estimate Normal (NORMAL) Poikilocytosis (manual Slight Anisocytosis (manual) Slight Puncture Site Rr pCO2 30 L (35-45) mm/Hg pO2 135 H (80-100) mm/Hg HCO3 29.0 H (21-28) mmol/L ABG pH 7.56 H (7.35-7.45) ABG Total CO2 27.8 (22-28) mmol/L ABG O2 Saturation 98.7 H (95-98) % ABG Base Excess 5.2 H (-2.0-3.0) mmol/L ABG Hemoglobin 13.0 (11.7-17.4) g/dL ABG Carboxyhemoglobin 0.8 (0.5-1.5) % POC ABG HHb (Measured) 1.3 (0.0-5.0) % ABG Methemoglobin 1.0 (0.0-3.0) % Jose Maria Test Pos A-a O2 Difference 327.0 mm/Hg Respiratory Index 2.4 Hgb O2 Saturation 96.9 (95.0-98.0) % Vent Mode Prvc Mechanical Rate 16 FiO2 70.0 % Tidal Volume 400 PEEP 5 Inspiratory BiPAP Expiratory BiPAP Sodium 143 (132-148) mmol/L Potassium 2.4 L* D (3.6-5.2) mmol/L Chloride 103 (98-107) mmol/L Carbon Dioxide 25 (22-30) mmol/L Anion Gap 17 (10-20) BUN 33 H (7-17) mg/dL Creatinine 0.7 (0.7-1.2) MG/DL Est GFR ( Amer) > 60 Est GFR (Non-Af Amer) > 60 Random Glucose 229 H (65-105) mg/dL Calcium 7.8 L (8.6-10.4) mg/dl Phosphorus 2.3 L (2.5-4.5) mg/dL Magnesium 1.8 (1.6-2.3) mg/dL Total Bilirubin 0.8 (0.2-1.3) mg/dL AST 16 (14-36) U/L ALT 60 H (9-52) U/L Alkaline Phosphatase 94 (38-126) U/L Total Protein 5.9 L (6.3-8.3) g/dL Albumin 2.9 L (3.5-5.0) g/dL Globulin 3.0 (2.2-3.9) gm/dL Albumin/Globulin Ratio 1.0 (1.0-2.1) 01/08/17 Range/Units 05:52 WBC (4.8-10.8) K/uL RBC (3.80-5.20) Mil/uL Hgb (11.0-16.0) g/dL Hct (34.0-47.0) % MCV (81.0-99.0) fL MCH (27.0-31.0) pg MCHC (33.0-37.0) g/dL RDW (11.5-14.5) % Plt Count (130-400) K/uL MPV (7.2-11.7) fL Neut % (Auto) (50.0-75.0) % Lymph % (Auto) (20.0-40.0) % Reagan % (Auto) (0.0-10.0) % Eos % (Auto) (0.0-4.0) % Baso % (Auto) (0.0-2.0) % Neut # (1.8-7.0) K/uL Lymph # (1.0-4.3) K/uL Reagan # (0.0-0.8) K/uL Eos # (0.0-0.7) K/uL Baso # (0.0-0.2) K/uL Neutrophils % (Manual) (50-75) % Band Neutrophils % (0-2) % Lymphocytes % (Manual) (20-40) % Monocytes % (Manual) (0-10) % Platelet Estimate (NORMAL) Poikilocytosis (manual Anisocytosis (manual) Puncture Site Rb pCO2 62 H (35-45) mm/Hg pO2 70 L (80-100) mm/Hg HCO3 20.9 L (21-28) mmol/L ABG pH 7.20 L (7.35-7.45) ABG Total CO2 26.1 (22-28) mmol/L ABG O2 Saturation 96.5 (95-98) % ABG Base Excess -4.9 L (-2.0-3.0) mmol/L ABG Hemoglobin (11.7-17.4) g/dL ABG Carboxyhemoglobin (0.5-1.5) % POC ABG HHb (Measured) (0.0-5.0) % ABG Methemoglobin (0.0-3.0) % Jose Maria Test Na A-a O2 Difference 280.0 mm/Hg Respiratory Index 4.0 Hgb O2 Saturation (95.0-98.0) % Vent Mode Bipap Mechanical Rate FiO2 60.0 % Tidal Volume PEEP Inspiratory BiPAP 20 Expiratory BiPAP 8 Sodium (132-148) mmol/L Potassium (3.6-5.2) mmol/L Chloride (98-107) mmol/L Carbon Dioxide (22-30) mmol/L Anion Gap (10-20) BUN (7-17) mg/dL Creatinine (0.7-1.2) MG/DL Est GFR ( Amer) Est GFR (Non-Af Amer) Random Glucose (65-105) mg/dL Calcium (8.6-10.4) mg/dl Phosphorus (2.5-4.5) mg/dL Magnesium (1.6-2.3) mg/dL Total Bilirubin (0.2-1.3) mg/dL AST (14-36) U/L ALT (9-52) U/L Alkaline Phosphatase (38-126) U/L Total Protein (6.3-8.3) g/dL Albumin (3.5-5.0) g/dL Globulin (2.2-3.9) gm/dL Albumin/Globulin Ratio (1.0-2.1) Laboratory Results - last 24 hr 01/08/17 01/10/17 01/10/17 05:52 05:16 06:16 WBC 8.8 RBC 4.06 Hgb 12.8 Hct 37.4 MCV 92.1 D MCH 31.5 H MCHC 34.2 RDW 14.7 H Plt Count 132 MPV 9.4 Neut % (Auto) 93.1 H Lymph % (Auto) 3.0 L Reagan % (Auto) 3.8 Eos % (Auto) 0.0 Baso % (Auto) 0.1 Neut # 8.2 H Lymph # 0.3 L Reagan # 0.3 Eos # 0.0 Baso # 0.0 Neutrophils % (Manual) 74 Band Neutrophils % 14 H* Lymphocytes % (Manual) 6 L Monocytes % (Manual) 6 Platelet Estimate Normal Poikilocytosis (manual Slight Anisocytosis (manual) Slight Puncture Site Rb Rr pCO2 62 H 30 L pO2 70 L 135 H HCO3 20.9 L 29.0 H ABG pH 7.20 L 7.56 H ABG Total CO2 26.1 27.8 ABG O2 Saturation 96.5 98.7 H ABG Base Excess -4.9 L 5.2 H ABG Hemoglobin 13.0 ABG Carboxyhemoglobin 0.8 POC ABG HHb (Measured) 1.3 ABG Methemoglobin 1.0 Jose Maria Test Na Pos A-a O2 Difference 280.0 327.0 Respiratory Index 4.0 2.4 Hgb O2 Saturation 96.9 Vent Mode Bipap Prvc Mechanical Rate 16 FiO2 60.0 70.0 Tidal Volume 400 PEEP 5 Inspiratory BiPAP 20 Expiratory BiPAP 8 Sodium Potassium Chloride Carbon Dioxide Anion Gap BUN Creatinine Est GFR ( Amer) Est GFR (Non-Af Amer) Random Glucose Calcium Phosphorus Magnesium Total Bilirubin AST ALT Alkaline Phosphatase Total Protein Albumin Globulin Albumin/Globulin Ratio 01/10/17 06:16 WBC RBC Hgb Hct MCV MCH MCHC RDW Plt Count MPV Neut % (Auto) Lymph % (Auto) Reagan % (Auto) Eos % (Auto) Baso % (Auto) Neut # Lymph # Reagan # Eos # Baso # Neutrophils % (Manual) Band Neutrophils % Lymphocytes % (Manual) Monocytes % (Manual) Platelet Estimate Poikilocytosis (manual Anisocytosis (manual) Puncture Site pCO2 pO2 HCO3 ABG pH ABG Total CO2 ABG O2 Saturation ABG Base Excess ABG Hemoglobin ABG Carboxyhemoglobin POC ABG HHb (Measured) ABG Methemoglobin Jose Maria Test A-a O2 Difference Respiratory Index Hgb O2 Saturation Vent Mode Mechanical Rate FiO2 Tidal Volume PEEP Inspiratory BiPAP Expiratory BiPAP Sodium 143 Potassium 2.4 L* D Chloride 103 Carbon Dioxide 25 Anion Gap 17 BUN 33 H Creatinine 0.7 Est GFR ( Amer) > 60 Est GFR (Non-Af Amer) > 60 Random Glucose 229 H Calcium 7.8 L Phosphorus 2.3 L Magnesium 1.8 Total Bilirubin 0.8 AST 16 ALT 60 H Alkaline Phosphatase 94 Total Protein 5.9 L Albumin 2.9 L Globulin 3.0 Albumin/Globulin Ratio 1.0 Attending/Attestation - Attestation I have personally seen and examined this patient.: Yes I have fully participated in the care of the patient.: Yes I have reviewed all pertinent clinical information: Yes Notes (Text): 01/10/17 15:34 I have seen and examined the patient. Medical records, lab studies, and imaging were reviewed by me and a management plan was formulated on multidisciplinary rounds with resident Dr. Lock. I agree with their above documented assessment and plan. Patient has advanced stage multiple sclerosis, bed bound, cannot feed herself. She now has aspiration pneumonia with acute respiratory failure. Daily PS trials, stopping all sedation. hemodynamically stable. Consult palliative care. Critical Care Time 35 minutes. Multi-disciplinary rounds were performed with house staff, nursing, speech therapy, respiratory therapy, pharmacy and nutrition with integrated input from the primary team/attending and other consulting services. The documented time is cumulative and includes review of patient data/exams/labs/chart review and examination of the patient on rounds and throughout the day; time is exclusive of any procedures or teaching time.
[2017-01-09 08:56] LABS: NEUTROPHIL 70 % (50-75); NUCLEATED RED BLOOD CELL 2 % (0-0); TOTAL CELLS COUNTED 100
[2017-01-09] MEDS ORDERED: Potassium Chloride 20 mEq/15 ml LIQ UD PO ONE (09:45)
[2017-01-09] MEDS: Enoxaparin 80 mg Syringe SC SCH ×2 (11:36→21:29)
--- NOTE | 2017-01-09 13:50 | RAD ---
HISTORY: questionable pna COMPARISON: Chest x-ray performed 01/08/17 TECHNIQUE: Chest, one view. FINDINGS: Distal tip of the endotracheal tube terminates approximately 4 cm to the level of the janelle. Right IJ approach central venous catheter extends the cavoatrial junction. Nasogastric tube extends expected location of the stomach. LUNGS: Biapical pleural thickening. Mild interstitial prominence may reflect infection or edema. Patchy opacity at the right lung base consistent with pneumonia. Tiny bilateral pleural effusions. No definite pneumothorax. CARDIOVASCULAR: Heart size appears borderline enlarged. Atherosclerotic calcification of the aortic knob. OSSEOUS STRUCTURES: Osseous demineralization. Degenerative changes. VISUALIZED UPPER ABDOMEN: Elevation of the right hemidiaphragm. OTHER FINDINGS: None. IMPRESSION: Distal tip of the endotracheal tube terminates approximately 4 cm to the level of the janelle. Right IJ approach central venous catheter extends the cavoatrial junction. Nasogastric tube extends expected location of the stomach. Biapical pleural thickening. Mild interstitial prominence may reflect infection or edema. Patchy opacity at the right lung base consistent with pneumonia. Tiny bilateral pleural effusions.
--- NOTE | 2017-01-09 17:26 | CP.PCM.PN ---
Subjective - Date & Time of Evaluation Date of Evaluation: 01/09/17 Time of Evaluation: 08:00 - Subjective Subjective: lethaqrgic weak opens eyes on vent Objective - Vital Signs/Intake and Output Vital Signs (last 24 hours): Temp Pulse Resp BP Pulse Ox 98.5 F 70 16 126/81 98 01/09/17 08:00 01/09/17 16:17 01/09/17 16:17 01/09/17 16:17 01/09/17 16:17 Intake and Output: 01/09/17 01/09/17 06:59 18:59 Intake Total 1119.4 909.0 Output Total 1135 1240 Balance -15.6 -331.0 - Medications Medications: Current Medications Albuterol/Ipratropium (Duoneb 3 Mg/0.5 Mg (3 Ml) Ud) 3 ml INH RQ6 [facility] Last Admin: 01/09/17 14:14 Dose: 3 ml Enoxaparin Sodium (Lovenox) 65 mg SC Q12 [facility] Last Admin: 01/09/17 11:36 Dose: 65 mg Furosemide (Lasix) 40 mg IVP BID [facility] Last Admin: 01/09/17 11:37 Dose: 40 mg Sodium Chloride (Sodium Chloride 0.9%) 1,000 mls @ 75 mls/hr IV .[id number] [facility] Last Admin: 01/09/17 13:21 Dose: 75 mls/hr Piperacillin Sod/Tazobactam Sod (Zosyn 3.375 Gm Iv Premix) 3.375 gm in 50 mls @ 100 mls/hr IVPB Q8H [facility] Last Admin: 01/09/17 10:30 Dose: 100 mls/hr Linezolid (Zyvox 600mg/300ml D5w) 600 mg in 300 mls @ 200 mls/hr IVPB Q12H [facility] Last Admin: 01/09/17 13:22 Dose: 200 mls/hr Propofol (Diprivan) 1,000 mg in 100 mls @ 1.938 mls/hr IV .Q24H PRN; Protocol; 5 MCG/KG/MIN PRN Reason: TITRATE PER MD ORDER Last Admin: 01/09/17 15:39 Dose: 15.22 mcg/kg/min, 5.9 mls/hr Lisinopril (Zestril) 5 mg PO DAILY [facility] Last Admin: 01/09/17 11:38 Dose: 5 mg Methylprednisolone (Solu-Medrol) 40 mg IVP Q8H [facility] Last Admin: 01/09/17 11:37 Dose: 40 mg Pantoprazole Sodium (Protonix Inj) 40 mg IVP DAILY [facility] Last Admin: 01/09/17 11:36 Dose: 40 mg Rosuvastatin Calcium (Crestor) 5 mg PO HS [facility] Last Admin: 01/08/17 21:26 Dose: 5 mg - Labs Labs: 01/09/17 06:12 01/09/17 06:12 PT 11.4 SECONDS (9.7-12.2) 01/07/17 10:28 INR 1.0 01/07/17 10:28 APTT 36 SECONDS (21-34) H 01/07/17 10:28 - Constitutional Appears: Non-toxic, Cachectic, Chronically Ill - Head Exam Head Exam: NORMOCEPHALIC - Eye Exam Eye Exam: PERRL - ENT Exam ENT Exam: Mucous Membranes Dry - Neck Exam Neck Exam: absent: Lymphadenopathy - Respiratory Exam Respiratory Exam: Decreased Breath Sounds - Cardiovascular Exam Cardiovascular Exam: REGULAR RHYTHM - GI/Abdominal Exam GI & Abdominal Exam: Distended, Soft - Rectal Exam Rectal Exam: Deferred - Exam Exam: NORMAL INSPECTION - Extremities Exam Extremities Exam: Pedal Edema. absent: Tenderness - Back Exam Back Exam: absent: CVA tenderness (L), CVA tenderness (R) - Neurological Exam Neurological Exam: Altered Assessment and Plan (1) Sepsis Status: Acute (2) Altered mental status Status: Acute (3) Elevated BUN Status: Acute - Assessment and Plan (Free Text) Plan: blood c/s positive cont iv antibiotics
--- NOTE | 2017-01-09 21:56 | CP.PCM.PN ---
Subjective - Date & Time of Evaluation Date of Evaluation: 01/09/17 Time of Evaluation: 08:05 - Subjective Subjective: Patient seen and evaluated Intubated Hemodynamically stable Continue current meds Physical Exam - Constitutional Appears: No Acute Distress, Chronically Ill - Head Exam Head Exam: ATRAUMATIC, NORMAL INSPECTION - Eye Exam Eye Exam: EOMI - ENT Exam ENT Exam: Mucous Membranes Moist - Respiratory Exam Respiratory Exam: Clear to Auscultation Bilateral, NORMAL BREATHING PATTERN. absent: Respiratory Distress - Cardiovascular Exam Cardiovascular Exam: REGULAR RHYTHM, +S1 - GI/Abdominal Exam GI & Abdominal Exam: Normal Bowel Sounds, Soft. absent: Tenderness - Extremities Exam Extremities exam: Positive for: normal inspection - Neurological Exam Neurological exam: Altered - Skin Skin Exam: Warm Objective - Vital Signs/Intake and Output Vital Signs (last 24 hours): Temp Pulse Resp BP Pulse Ox 98.5 F 67 22 142/73 96 01/09/17 08:00 01/09/17 18:16 01/09/17 18:16 01/09/17 18:16 01/09/17 18:16 Intake and Output: 01/09/17 01/10/17 18:59 06:59 Intake Total 1089.9 80.9 Output Total 1280 200 Balance -190.1 -119.1 - Medications Medications: Current Medications Albuterol/Ipratropium (Duoneb 3 Mg/0.5 Mg (3 Ml) Ud) 3 ml INH RQ6 [facility] Last Admin: 01/09/17 19:33 Dose: 3 ml Enoxaparin Sodium (Lovenox) 65 mg SC Q12 [facility] Last Admin: 01/09/17 21:29 Dose: 65 mg Furosemide (Lasix) 40 mg IVP BID [facility] Last Admin: 01/09/17 17:39 Dose: 40 mg Sodium Chloride (Sodium Chloride 0.9%) 1,000 mls @ 75 mls/hr IV .[id number] [facility] Last Admin: 01/09/17 13:21 Dose: 75 mls/hr Piperacillin Sod/Tazobactam Sod (Zosyn 3.375 Gm Iv Premix) 3.375 gm in 50 mls @ 100 mls/hr IVPB Q8H [facility] Last Admin: 01/09/17 17:40 Dose: 100 mls/hr Linezolid (Zyvox 600mg/300ml D5w) 600 mg in 300 mls @ 200 mls/hr IVPB Q12H [facility] Last Admin: 01/09/17 13:22 Dose: 200 mls/hr Propofol (Diprivan) 1,000 mg in 100 mls @ 1.938 mls/hr IV .Q24H PRN; Protocol; 5 MCG/KG/MIN PRN Reason: TITRATE PER MD ORDER Last Admin: 01/09/17 15:39 Dose: 15.22 mcg/kg/min, 5.9 mls/hr Lisinopril (Zestril) 5 mg PO DAILY [facility] Last Admin: 01/09/17 11:38 Dose: 5 mg Methylprednisolone (Solu-Medrol) 40 mg IVP Q8H [facility] Last Admin: 01/09/17 17:39 Dose: 40 mg Pantoprazole Sodium (Protonix Inj) 40 mg IVP DAILY [facility] Last Admin: 01/09/17 11:36 Dose: 40 mg Rosuvastatin Calcium (Crestor) 5 mg PO HS [facility] Last Admin: 01/09/17 21:29 Dose: 5 mg - Labs Labs: 01/09/17 06:12 01/09/17 06:12 PT 11.4 SECONDS (9.7-12.2) 01/07/17 10:28 INR 1.0 01/07/17 10:28 APTT 36 SECONDS (21-34) H 01/07/17 10:28 Assessment and Plan - Assessment and Plan (Free Text) Assessment: 76 yo F w/ PMHx of Anemia, Anxiety, Arthritis, Cardiac Arrhythmia, COPD, Depression, HTN, Hyperlipidemia, Multiple Sclerosis, Osteoporosis, Peripheral Edema, Pulmonary Embolism, Chronic Kidney Disease, Rheumatoid Arthritis, presents with dyspnea and sepsis. Neuro: Intubated ID: sepsis, bands 40, wbc normal, febrile Blood, Urine cultures sent Pulm: hypercapnic respiratory failure Bipap with 100% FiO2 Nephro: elevated BUN, Cr normal monitor urinary output CV: CHF, bnp [id number] GI: elevated ALT Prophylaxis: DVT: heparin 5000u sc q8 GI: protonix 40mg ivp daily
[2017-01-10 01:27] LABS: ARTERIAL BLOOD GAS MODE BiPAP; DRAW SITE RB
[2017-01-10] MEDS: Sodium Chloride 0.9% 1,000 ML IV SCH ×2 (01:35→06:33)
[2017-01-10] MEDS: Albuterol-Ipratrop 3 mg / 0.5 (3 ml) UD INH SCH ×4 (01:56→19:25)
[2017-01-10] MEDS: Piperacill/Tazo 3.375gm in Dex 3.375 GM/50 ML BAG IVPB SCH ×3 (02:02→17:48)
[2017-01-10] MEDS: MethylPREDNISolone 40 mg Vial IVP SCH ×3 (02:02→17:46)
[2017-01-10 05:34] LABS: ABG ALLEN TEST POS; ABG MECHANICAL RATE 16; ARTERIAL BLOOD GAS MODE PRVC; ARTERIAL BLOOD HGB O2 SAT 96.9 % (95.0-98.0); ATERIAL BLOOD GAS PEEP 5; CARBOXYHEMOGLOBIN 0.8 % (0.5-1.5); DRAW SITE RR; HHB 1.3 % (0.0-5.0)
[2017-01-10] MEDS: Propofol 10 mg/ml 1,000 MG/100 ML VIAL IV PRN (06:13)
[2017-01-10 06:26] LABS: BASO % 0.1 % (0.0-2.0); HEMATOCRIT 37.4 % (34.0-47.0); LYMPH # 0.3 K/uL (1.0-4.3); MEAN CELL VOLUME 92.1 fL (81.0-99.0); MEAN CORPUSCULAR HEMOGLOBIN 31.5 pg (27.0-31.0); MEAN CORPUSCULAR HGB CONC 34.2 g/dL (33.0-37.0); MEAN PLATELET VOLUME 9.4 fL (7.2-11.7); MONO # 0.3 K/uL (0.0-0.8); MONO % 3.8 % (0.0-10.0); NRBC % 0.6 % (0.0-2.0); PLATELET COUNT 132 K/uL (130-400); RED CELL DISTRIBUTION WIDTH 14.7 % (11.5-14.5); WHITE BLOOD COUNT 8.8 K/uL (4.8-10.8)
[2017-01-10 06:42] LABS: CHLORIDE 103 mmol/L (98-107); SODIUM 143 mmol/L (132-148)
[2017-01-10 06:44] LABS: GFR AFRICAN-AMERICAN > 60
[2017-01-10 06:45] LABS: ALKALINE PHOSPHATASE 94 U/L (38-126); ALT/SGPT 60 U/L (9-52); AST/SGOT 16 U/L (14-36); BILIRUBIN,TOTAL 0.8 mg/dL (0.2-1.3); BLOOD UREA NITROGEN 33 mg/dL (7-17); CARBON DIOXIDE 25 mmol/L (22-30); GLUCOSE,RANDOM 229 mg/dL (65-105); PHOSPHOROUS 2.3 mg/dL (2.5-4.5); TOTAL PROTEIN 5.9 g/dL (6.3-8.3)
[2017-01-10 06:46] LABS: CALCIUM 7.8 mg/dl (8.6-10.4); MAGNESIUM 1.8 mg/dL (1.6-2.3)
[2017-01-10 06:50] LABS: POTASSIUM 2.4 mmol/L (3.6-5.2)
--- NOTE | 2017-01-10 08:14 | CP.CCUPN ---
<Zain Lock - Last Filed: 01/10/17 13:14> CCU Subjective - Physician Review Subjective (Free Text): Patient was seen and examined at bedside today. Patient was lethargic, non- responsive to commands, responsive to painful stimuli. Patient is intubated. ROS were unobtainable. CCU Objective - Vital Signs / Intake & Output Vital Signs (Last 4 hours): Vital Signs Temp Pulse Resp BP Pulse Ox 01/10/17 07:55 98.5 F 01/10/17 07:20 64 20 100 01/10/17 07:16 64 22 147/79 99 01/10/17 07:10 57 L 16 99 01/10/17 07:00 64 18 98 01/10/17 06:50 64 16 98 01/10/17 06:40 61 16 98 01/10/17 06:30 60 16 98 01/10/17 06:20 59 L 16 98 01/10/17 06:16 59 L 16 140/73 98 01/10/17 06:10 62 17 97 01/10/17 06:00 64 19 98 01/10/17 05:50 65 19 97 01/10/17 05:40 62 99 01/10/17 05:30 63 23 99 01/10/17 05:20 63 16 98 01/10/17 05:16 59 L 16 158/71 H 99 01/10/17 05:10 58 L 16 99 01/10/17 05:00 58 L 16 99 01/10/17 04:50 58 L 16 99 01/10/17 04:40 59 L 16 98 01/10/17 04:30 65 16 98 01/10/17 04:20 66 19 97 01/10/17 04:16 66 22 121/59 L 97 Intake and Output (Last 8hrs): Intake & Output 01/09/17 01/10/17 01/10/17 22:59 06:59 14:59 Intake Total 761.3 1116.2 110.9 Output Total 1090 750 Balance -328.7 366.2 110.9 Weight 136 lb 14.4 oz Intake: IV 100 100 Intake, IV Amount 541.3 846.2 80.9 Right Distal Port 41.3 47.2 5.9 Internal Jugular Right Proximal Port 500 799 75 Internal Jugular Tube Feeding 60 170 30 Other 60 Output: Urine 1090 750 Urethral ([place]) 1090 750 - Physical Exam Head: Positive for: Atraumatic, Normocephalic Pupils: Positive for: PERRL Mouth: Positive for: Moist Mucous Membranes, Other (w/ dentures) Neck: Negative for: JVD, Lymphadenopathy Respiratory/Chest: Positive for: Respiratory Distress, Wheezes, Other (on ventilator). Negative for: Good Air Exchange Cardiovascular: Positive for: Regular Rate and Rhythm, Normal S1, S2. Negative for: Murmurs, Tachycardic Abdomen: Positive for: Normal Bowel Sounds. Negative for: Distention Upper Extremity: Positive for: NORMAL PULSES. Negative for: Edema Lower Extremity: Positive for: NORMAL PULSES. Negative for: Edema Neurological: Negative for: Speech Normal Skin: Positive for: Warm, Dry, Normal Color Psychiatric: Negative for: Oriented x 3 - Medications Active Medications: Active Medications Generic Name Dose Route Start Last Admin Trade Name Freq PRN Reason Stop Dose Admin Albuterol/Ipratropium 3 ml 01/08/17 14:00 01/10/17 07:58 Duoneb 3 Mg/0.5 Mg (3 Ml) Ud INH 3 ml RQ6 RAUL Administration Enoxaparin Sodium 65 mg 01/08/17 10:00 01/09/17 21:29 Lovenox SC 65 mg Q12 RAUL Administration Furosemide 40 mg 01/08/17 18:00 01/09/17 17:39 Lasix IVP 40 mg BID RAUL Administration Sodium Chloride 1,000 mls @ 75 mls/hr 01/07/17 20:15 01/10/17 06:33 Sodium Chloride 0.9% IV 75 mls/hr .[id number] RAUL Administration Piperacillin Sod/Tazobactam Sod 3.375 gm in 50 mls @ 100 mls/hr 01/08/17 10: 30 01/10/17 02:02 Zosyn 3.375 Gm Iv Premix IVPB 100 mls/hr Q8H RAUL Administration Linezolid 600 mg in 300 mls @ 200 mls/hr 01/08/17 12:15 01/09/17 23:48 Zyvox 600mg/300ml D5w IVPB 200 mls/hr Q12H RAUL Administration Propofol 1,000 mg in 100 mls @ 1.938 mls/hr 01/08/17 12:10 01/10/17 06:13 Diprivan IV 15.22 mcg/kg/min .Q24H PRN 5.9 mls/hr TITRATE PER MD ORDER Administration Protocol 5 MCG/KG/MIN Lisinopril 5 mg 01/09/17 10:00 01/09/17 11:38 Zestril PO 5 mg DAILY RAUL Administration Methylprednisolone 40 mg 01/08/17 10:00 01/10/17 02:02 Solu-Medrol IVP 40 mg Q8H RAUL Administration Pantoprazole Sodium 40 mg 01/08/17 10:00 01/09/17 11:36 Protonix Inj IVP 40 mg DAILY RAUL Administration Rosuvastatin Calcium 5 mg 01/08/17 22:00 01/09/17 21:29 Crestor PO 5 mg HS RAUL Administration - Patient Studies Lab Studies: Microbiology Studies 01/07/17 23:00 Blood Culture - Preliminary Blood-Venous NO GROWTH AFTER 48 HOURS 01/07/17 10:00 Blood Culture - Preliminary Blood NO GROWTH AFTER 48 HOURS 01/07/17 18:52 MRSA Culture (Admit) - Final Naris MRSA NOT DETECTED 01/07/17 Unknown Urine Culture - Final Urine No Growth (<1,000 CFU/ML) 01/07/17 10:30 Blood Culture - Preliminary Blood Coagulase Neg Staphylococcus Gram Stain - Final 01/07/17 22:30 Blood Culture - Preliminary Blood-Venous Gram Positive Cocci Gram Stain - Final Lab Studies 01/10/17 01/10/17 01/10/17 Range/Units 06:16 06:16 05:16 WBC 8.8 (4.8-10.8) K/uL RBC 4.06 (3.80-5.20) Mil/uL Hgb 12.8 (11.0-16.0) g/dL Hct 37.4 (34.0-47.0) % MCV 92.1 D (81.0-99.0) fL MCH 31.5 H (27.0-31.0) pg MCHC 34.2 (33.0-37.0) g/dL RDW 14.7 H (11.5-14.5) % Plt Count 132 (130-400) K/uL MPV 9.4 (7.2-11.7) fL Neut % (Auto) 93.1 H (50.0-75.0) % Lymph % (Auto) 3.0 L (20.0-40.0) % Lucas % (Auto) 3.8 (0.0-10.0) % Eos % (Auto) 0.0 (0.0-4.0) % Baso % (Auto) 0.1 (0.0-2.0) % Neut # 8.2 H (1.8-7.0) K/uL Lymph # 0.3 L (1.0-4.3) K/uL Lucas # 0.3 (0.0-0.8) K/uL Eos # 0.0 (0.0-0.7) K/uL Baso # 0.0 (0.0-0.2) K/uL Neutrophils % (Manual) (50-75) % Band Neutrophils % (0-2) % Lymphocytes % (Manual) (20-40) % Monocytes % (Manual) (0-10) % Nucleated RBC % (0-0) % Platelet Estimate (NORMAL) RBC Morphology Puncture Site Rr pCO2 30 L (35-45) mm/Hg pO2 135 H (80-100) mm/Hg HCO3 29.0 H (21-28) mmol/L ABG pH 7.56 H (7.35-7.45) ABG Total CO2 27.8 (22-28) mmol/L ABG O2 Saturation 98.7 H (95-98) % ABG Base Excess 5.2 H (-2.0-3.0) mmol/L ABG Hemoglobin 13.0 (11.7-17.4) g/dL ABG Carboxyhemoglobin 0.8 (0.5-1.5) % POC ABG HHb (Measured) 1.3 (0.0-5.0) % ABG Methemoglobin 1.0 (0.0-3.0) % Jose Maria Test Pos A-a O2 Difference 327.0 mm/Hg Respiratory Index 2.4 Hgb O2 Saturation 96.9 (95.0-98.0) % Vent Mode Prvc Mechanical Rate 16 FiO2 70.0 % Tidal Volume 400 PEEP 5 Inspiratory BiPAP Expiratory BiPAP Sodium 143 (132-148) mmol/L Potassium 2.4 L* D (3.6-5.2) mmol/L Chloride 103 (98-107) mmol/L Carbon Dioxide 25 (22-30) mmol/L Anion Gap 17 (10-20) BUN 33 H (7-17) mg/dL Creatinine 0.7 (0.7-1.2) MG/DL Est GFR ( Amer) > 60 Est GFR (Non-Af Amer) > 60 Random Glucose 229 H (65-105) mg/dL Calcium 7.8 L (8.6-10.4) mg/dl Phosphorus 2.3 L (2.5-4.5) mg/dL Magnesium 1.8 (1.6-2.3) mg/dL Total Bilirubin 0.8 (0.2-1.3) mg/dL AST 16 (14-36) U/L ALT 60 H (9-52) U/L Alkaline Phosphatase 94 (38-126) U/L Total Protein 5.9 L (6.3-8.3) g/dL Albumin 2.9 L (3.5-5.0) g/dL Globulin 3.0 (2.2-3.9) gm/dL Albumin/Globulin Ratio 1.0 (1.0-2.1) 01/09/17 01/08/17 Range/Units 06:12 05:52 WBC (4.8-10.8) K/uL RBC (3.80-5.20) Mil/uL Hgb (11.0-16.0) g/dL Hct (34.0-47.0) % MCV (81.0-99.0) fL MCH (27.0-31.0) pg MCHC (33.0-37.0) g/dL RDW (11.5-14.5) % Plt Count (130-400) K/uL MPV (7.2-11.7) fL Neut % (Auto) (50.0-75.0) % Lymph % (Auto) (20.0-40.0) % Lucas % (Auto) (0.0-10.0) % Eos % (Auto) (0.0-4.0) % Baso % (Auto) (0.0-2.0) % Neut # (1.8-7.0) K/uL Lymph # (1.0-4.3) K/uL Lucas # (0.0-0.8) K/uL Eos # (0.0-0.7) K/uL Baso # (0.0-0.2) K/uL Neutrophils % (Manual) 70 (50-75) % Band Neutrophils % 25 H* (0-2) % Lymphocytes % (Manual) 3 L (20-40) % Monocytes % (Manual) 2 (0-10) % Nucleated RBC % 2 H (0-0) % Platelet Estimate Slightly decreased L (NORMAL) RBC Morphology Normal Puncture Site Rb pCO2 62 H (35-45) mm/Hg pO2 70 L (80-100) mm/Hg HCO3 20.9 L (21-28) mmol/L ABG pH 7.20 L (7.35-7.45) ABG Total CO2 26.1 (22-28) mmol/L ABG O2 Saturation 96.5 (95-98) % ABG Base Excess -4.9 L (-2.0-3.0) mmol/L ABG Hemoglobin (11.7-17.4) g/dL ABG Carboxyhemoglobin (0.5-1.5) % POC ABG HHb (Measured) (0.0-5.0) % ABG Methemoglobin (0.0-3.0) % Jose Maria Test Na A-a O2 Difference 280.0 mm/Hg Respiratory Index 4.0 Hgb O2 Saturation (95.0-98.0) % Vent Mode Bipap Mechanical Rate FiO2 60.0 % Tidal Volume PEEP Inspiratory BiPAP 20 Expiratory BiPAP 8 Sodium (132-148) mmol/L Potassium (3.6-5.2) mmol/L Chloride (98-107) mmol/L Carbon Dioxide (22-30) mmol/L Anion Gap (10-20) BUN (7-17) mg/dL Creatinine (0.7-1.2) MG/DL Est GFR ( Amer) Est GFR (Non-Af Amer) Random Glucose (65-105) mg/dL Calcium (8.6-10.4) mg/dl Phosphorus (2.5-4.5) mg/dL Magnesium (1.6-2.3) mg/dL Total Bilirubin (0.2-1.3) mg/dL AST (14-36) U/L ALT (9-52) U/L Alkaline Phosphatase (38-126) U/L Total Protein (6.3-8.3) g/dL Albumin (3.5-5.0) g/dL Globulin (2.2-3.9) gm/dL Albumin/Globulin Ratio (1.0-2.1) Laboratory Results - last 24 hr 01/08/17 01/09/17 01/10/17 05:52 06:12 05:16 WBC RBC Hgb Hct MCV MCH MCHC RDW Plt Count MPV Neut % (Auto) Lymph % (Auto) Lucas % (Auto) Eos % (Auto) Baso % (Auto) Neut # Lymph # Lucas # Eos # Baso # Neutrophils % (Manual) 70 Band Neutrophils % 25 H* Lymphocytes % (Manual) 3 L Monocytes % (Manual) 2 Nucleated RBC % 2 H Platelet Estimate Slightly decreased L RBC Morphology Normal Puncture Site Rb Rr pCO2 62 H 30 L pO2 70 L 135 H HCO3 20.9 L 29.0 H ABG pH 7.20 L 7.56 H ABG Total CO2 26.1 27.8 ABG O2 Saturation 96.5 98.7 H ABG Base Excess -4.9 L 5.2 H ABG Hemoglobin 13.0 ABG Carboxyhemoglobin 0.8 POC ABG HHb (Measured) 1.3 ABG Methemoglobin 1.0 Jose Maria Test Na Pos A-a O2 Difference 280.0 327.0 Respiratory Index 4.0 2.4 Hgb O2 Saturation 96.9 Vent Mode Bipap Prvc Mechanical Rate 16 FiO2 60.0 70.0 Tidal Volume 400 PEEP 5 Inspiratory BiPAP 20 Expiratory BiPAP 8 Sodium Potassium Chloride Carbon Dioxide Anion Gap BUN Creatinine Est GFR ( Amer) Est GFR (Non-Af Amer) Random Glucose Calcium Phosphorus Magnesium Total Bilirubin AST ALT Alkaline Phosphatase Total Protein Albumin Globulin Albumin/Globulin Ratio 01/10/17 01/10/17 06:16 06:16 WBC 8.8 RBC 4.06 Hgb 12.8 Hct 37.4 MCV 92.1 D MCH 31.5 H MCHC 34.2 RDW 14.7 H Plt Count 132 MPV 9.4 Neut % (Auto) 93.1 H Lymph % (Auto) 3.0 L Lucas % (Auto) 3.8 Eos % (Auto) 0.0 Baso % (Auto) 0.1 Neut # 8.2 H Lymph # 0.3 L Lucas # 0.3 Eos # 0.0 Baso # 0.0 Neutrophils % (Manual) Band Neutrophils % Lymphocytes % (Manual) Monocytes % (Manual) Nucleated RBC % Platelet Estimate RBC Morphology Puncture Site pCO2 pO2 HCO3 ABG pH ABG Total CO2 ABG O2 Saturation ABG Base Excess ABG Hemoglobin ABG Carboxyhemoglobin POC ABG HHb (Measured) ABG Methemoglobin Jose Maria Test A-a O2 Difference Respiratory Index Hgb O2 Saturation Vent Mode Mechanical Rate FiO2 Tidal Volume PEEP Inspiratory BiPAP Expiratory BiPAP Sodium 143 Potassium 2.4 L* D Chloride 103 Carbon Dioxide 25 Anion Gap 17 BUN 33 H Creatinine 0.7 Est GFR ( Amer) > 60 Est GFR (Non-Af Amer) > 60 Random Glucose 229 H Calcium 7.8 L Phosphorus 2.3 L Magnesium 1.8 Total Bilirubin 0.8 AST 16 ALT 60 H Alkaline Phosphatase 94 Total Protein 5.9 L Albumin 2.9 L Globulin 3.0 Albumin/Globulin Ratio 1.0 Review of Systems - Review of Systems Systems not reviewed;Unavailable: Intubated Critical Care Progress Note - Vent Settings MODE:: PRVC TIDAL VOLUME:: 400 RESP RATE:: 18 FIO2:: 70 PEEP:: 5 - Extremities/Vascular Does the Patient have a Central Venous Catheter?: Yes Insertion Site: Internal Jugular Vein Does the Patient have a [place] Catheter?: Yes - Prophylaxis GI Prophylaxis GI: PPI - Prophylaxis DVT Prophylaxis DVT: Lovenox Assessment/Plan - Assessment and Plan (Free Text) Assessment: 76 yo F w/ PMHx of Anemia, Anxiety, Arthritis, Cardiac Arrhythmia, COPD, Depression, HTN, Hyperlipidemia, Multiple Sclerosis, Osteoporosis, Peripheral Edema, Pulmonary Embolism, Chronic Kidney Disease, Rheumatoid Arthritis, presents with dyspnea and sepsis. Today 01/10/17: Palliative care consult was put in due to possible end stage MS ( [place]) Neuro: lethargic; opens eyes to verbal stimuli but unable to follow commands ID: sepsis w/ blood culture positive for gram positive cocci, bands 40 on admission, wbc normal, febrile ID, Dr Lind, on board Pip/Tazo 3.375 g iv q8 started 01/08/17 linezolid 600mg iv q12 01/08/17 Blood culture positive for Gram positive cocci 01/07, Urine cultures negative Pulm: hypercapnic respiratory failure Intubated on vent duoneb q6 methylprednisolone 40mg iv q8 Guaifenesin 300mg PO Q4H PRN Nephro: elevated BUN, Cr normal monitor urinary output CV: Acute on chronic diastolic heart failure, bnp [id number] furosemide 40mg iv daily GI: elevated ALT Prophylaxis: DVT: enoxaparin 65mg sc q12 GI: protonix 40mg ivp daily Fluid: NS iv 75 cc/hr <Jonny Figueroa - Last Filed: 01/10/17 17:35> CCU Objective - Vital Signs / Intake & Output Vital Signs (Last 4 hours): Vital Signs Pulse Resp BP Pulse Ox 01/10/17 15:16 66 17 162/103 H 99 01/10/17 15:10 70 18 99 01/10/17 15:00 65 16 99 01/10/17 14:50 67 23 99 01/10/17 14:40 68 22 99 01/10/17 14:30 68 24 99 01/10/17 14:20 69 24 99 01/10/17 14:16 70 26 H 170/104 H 99 01/10/17 14:10 67 27 H 99 01/10/17 14:00 74 28 H 99 01/10/17 13:50 78 24 99 01/10/17 13:40 75 29 H 97 01/10/17 13:30 80 21 98 01/10/17 13:21 82 29 H 159/96 H 98 01/10/17 13:20 89 29 H 01/10/17 13:16 72 28 H 179/102 H 93 L 01/10/17 13:10 69 28 H 99 01/10/17 13:00 77 28 H 99 01/10/17 12:50 71 26 H 99 01/10/17 12:40 75 17 100 01/10/17 12:30 69 26 H 99 01/10/17 12:20 77 23 98 01/10/17 12:15 78 20 142/87 98 01/10/17 12:10 79 24 99 01/10/17 12:00 80 19 99 01/10/17 11:50 82 21 99 01/10/17 11:40 77 22 99 01/10/17 11:30 81 18 Intake and Output (Last 8hrs): Intake & Output 01/10/17 01/10/17 01/10/17 06:59 14:59 22:59 Intake Total 1116.2 1248.4 30 Output Total 750 685 Balance 366.2 563.4 30 Weight 136 lb 14.4 oz Intake: IV 100 Intake, IV Amount 846.2 708.4 0 Right Distal Port 47.2 33.4 0 Internal Jugular Right Proximal Port 799 675 Internal Jugular Tube Feeding 170 240 30 Other 300 Output: Urine 750 685 Urethral ([place]) 750 685 - Medications Active Medications: Active Medications Generic Name Dose Route Start Last Admin Trade Name Freq PRN Reason Stop Dose Admin Albuterol/Ipratropium 3 ml 01/08/17 14:00 01/10/17 14:00 Duoneb 3 Mg/0.5 Mg (3 Ml) Ud INH 3 ml RQ6 RAUL Administration Enoxaparin Sodium 65 mg 01/08/17 10:00 01/10/17 12:19 Lovenox SC 65 mg Q12 RAUL Administration Furosemide 40 mg 01/08/17 18:00 01/10/17 09:56 Lasix IVP 40 mg BID RAUL Administration Guaifenesin 200 mg 01/10/17 11:57 Robitussin PO Q4H PRN Cough and congestion Piperacillin Sod/Tazobactam Sod 3.375 gm in 50 mls @ 100 mls/hr 01/08/17 10: 30 01/10/17 11:40 Zosyn 3.375 Gm Iv Premix IVPB 100 mls/hr Q8H RAUL Administration Linezolid 600 mg in 300 mls @ 200 mls/hr 01/08/17 12:15 01/10/17 12:21 Zyvox 600mg/300ml D5w IVPB 200 mls/hr Q12H RAUL Administration Lisinopril 5 mg 01/09/17 10:00 01/10/17 09:54 Zestril PO 5 mg DAILY RAUL Administration Methylprednisolone 40 mg 01/08/17 10:00 01/10/17 09:55 Solu-Medrol IVP 40 mg Q8H RAUL Administration Pantoprazole Sodium 40 mg 01/08/17 10:00 01/10/17 09:55 Protonix Inj IVP 40 mg DAILY RAUL Administration Rosuvastatin Calcium 5 mg 01/08/17 22:00 01/09/17 21:29 Crestor PO 5 mg HS RAUL Administration - Patient Studies Lab Studies: Microbiology Studies 01/07/17 10:30 Blood Culture - Final Blood Coagulase Neg Staphylococcus Gram Stain - Final 01/07/17 22:30 S.aureus & Coag-Neg Staph PNA FISH - Final Blood-Venous Blood Culture - Preliminary Staphylococcus Sp Coag Neg Gram Stain - Final 01/07/17 23:00 Blood Culture - Preliminary Blood-Venous NO GROWTH AFTER 48 HOURS 01/07/17 10:00 Blood Culture - Preliminary Blood NO GROWTH AFTER 48 HOURS 01/07/17 18:52 MRSA Culture (Admit) - Final Naris MRSA NOT DETECTED 01/07/17 Unknown Urine Culture - Final Urine No Growth (<1,000 CFU/ML) Lab Studies 01/10/17 01/10/17 01/10/17 Range/Units 06:16 06:16 05:16 WBC 8.8 (4.8-10.8) K/uL RBC 4.06 (3.80-5.20) Mil/uL Hgb 12.8 (11.0-16.0) g/dL Hct 37.4 (34.0-47.0) % MCV 92.1 D (81.0-99.0) fL MCH 31.5 H (27.0-31.0) pg MCHC 34.2 (33.0-37.0) g/dL RDW 14.7 H (11.5-14.5) % Plt Count 132 (130-400) K/uL MPV 9.4 (7.2-11.7) fL Neut % (Auto) 93.1 H (50.0-75.0) % Lymph % (Auto) 3.0 L (20.0-40.0) % Lucas % (Auto) 3.8 (0.0-10.0) % Eos % (Auto) 0.0 (0.0-4.0) % Baso % (Auto) 0.1 (0.0-2.0) % Neut # 8.2 H (1.8-7.0) K/uL Lymph # 0.3 L (1.0-4.3) K/uL Lucas # 0.3 (0.0-0.8) K/uL Eos # 0.0 (0.0-0.7) K/uL Baso # 0.0 (0.0-0.2) K/uL Neutrophils % (Manual) 74 (50-75) % Band Neutrophils % 14 H* (0-2) % Lymphocytes % (Manual) 6 L (20-40) % Monocytes % (Manual) 6 (0-10) % Platelet Estimate Normal (NORMAL) Poikilocytosis (manual Slight Anisocytosis (manual) Slight Puncture Site Rr pCO2 30 L (35-45) mm/Hg pO2 135 H (80-100) mm/Hg HCO3 29.0 H (21-28) mmol/L ABG pH 7.56 H (7.35-7.45) ABG Total CO2 27.8 (22-28) mmol/L ABG O2 Saturation 98.7 H (95-98) % ABG Base Excess 5.2 H (-2.0-3.0) mmol/L ABG Hemoglobin 13.0 (11.7-17.4) g/dL ABG Carboxyhemoglobin 0.8 (0.5-1.5) % POC ABG HHb (Measured) 1.3 (0.0-5.0) % ABG Methemoglobin 1.0 (0.0-3.0) % Jose Maria Test Pos A-a O2 Difference 327.0 mm/Hg Respiratory Index 2.4 Hgb O2 Saturation 96.9 (95.0-98.0) % Vent Mode Prvc Mechanical Rate 16 FiO2 70.0 % Tidal Volume 400 PEEP 5 Inspiratory BiPAP Expiratory BiPAP Sodium 143 (132-148) mmol/L Potassium 2.4 L* D (3.6-5.2) mmol/L Chloride 103 (98-107) mmol/L Carbon Dioxide 25 (22-30) mmol/L Anion Gap 17 (10-20) BUN 33 H (7-17) mg/dL Creatinine 0.7 (0.7-1.2) MG/DL Est GFR ( Amer) > 60 Est GFR (Non-Af Amer) > 60 Random Glucose 229 H (65-105) mg/dL Calcium 7.8 L (8.6-10.4) mg/dl Phosphorus 2.3 L (2.5-4.5) mg/dL Magnesium 1.8 (1.6-2.3) mg/dL Total Bilirubin 0.8 (0.2-1.3) mg/dL AST 16 (14-36) U/L ALT 60 H (9-52) U/L Alkaline Phosphatase 94 (38-126) U/L Total Protein 5.9 L (6.3-8.3) g/dL Albumin 2.9 L (3.5-5.0) g/dL Globulin 3.0 (2.2-3.9) gm/dL Albumin/Globulin Ratio 1.0 (1.0-2.1) 01/08/17 Range/Units 05:52 WBC (4.8-10.8) K/uL RBC (3.80-5.20) Mil/uL Hgb (11.0-16.0) g/dL Hct (34.0-47.0) % MCV (81.0-99.0) fL MCH (27.0-31.0) pg MCHC (33.0-37.0) g/dL RDW (11.5-14.5) % Plt Count (130-400) K/uL MPV (7.2-11.7) fL Neut % (Auto) (50.0-75.0) % Lymph % (Auto) (20.0-40.0) % Lucas % (Auto) (0.0-10.0) % Eos % (Auto) (0.0-4.0) % Baso % (Auto) (0.0-2.0) % Neut # (1.8-7.0) K/uL Lymph # (1.0-4.3) K/uL Lucas # (0.0-0.8) K/uL Eos # (0.0-0.7) K/uL Baso # (0.0-0.2) K/uL Neutrophils % (Manual) (50-75) % Band Neutrophils % (0-2) % Lymphocytes % (Manual) (20-40) % Monocytes % (Manual) (0-10) % Platelet Estimate (NORMAL) Poikilocytosis (manual Anisocytosis (manual) Puncture Site Rb pCO2 62 H (35-45) mm/Hg pO2 70 L (80-100) mm/Hg HCO3 20.9 L (21-28) mmol/L ABG pH 7.20 L (7.35-7.45) ABG Total CO2 26.1 (22-28) mmol/L ABG O2 Saturation 96.5 (95-98) % ABG Base Excess -4.9 L (-2.0-3.0) mmol/L ABG Hemoglobin (11.7-17.4) g/dL ABG Carboxyhemoglobin (0.5-1.5) % POC ABG HHb (Measured) (0.0-5.0) % ABG Methemoglobin (0.0-3.0) % Jose Maria Test Na A-a O2 Difference 280.0 mm/Hg Respiratory Index 4.0 Hgb O2 Saturation (95.0-98.0) % Vent Mode Bipap Mechanical Rate FiO2 60.0 % Tidal Volume PEEP Inspiratory BiPAP 20 Expiratory BiPAP 8 Sodium (132-148) mmol/L Potassium (3.6-5.2) mmol/L Chloride (98-107) mmol/L Carbon Dioxide (22-30) mmol/L Anion Gap (10-20) BUN (7-17) mg/dL Creatinine (0.7-1.2) MG/DL Est GFR ( Amer) Est GFR (Non-Af Amer) Random Glucose (65-105) mg/dL Calcium (8.6-10.4) mg/dl Phosphorus (2.5-4.5) mg/dL Magnesium (1.6-2.3) mg/dL Total Bilirubin (0.2-1.3) mg/dL AST (14-36) U/L ALT (9-52) U/L Alkaline Phosphatase (38-126) U/L Total Protein (6.3-8.3) g/dL Albumin (3.5-5.0) g/dL Globulin (2.2-3.9) gm/dL Albumin/Globulin Ratio (1.0-2.1) Laboratory Results - last 24 hr 01/08/17 01/10/17 01/10/17 05:52 05:16 06:16 WBC 8.8 RBC 4.06 Hgb 12.8 Hct 37.4 MCV 92.1 D MCH 31.5 H MCHC 34.2 RDW 14.7 H Plt Count 132 MPV 9.4 Neut % (Auto) 93.1 H Lymph % (Auto) 3.0 L Lucas % (Auto) 3.8 Eos % (Auto) 0.0 Baso % (Auto) 0.1 Neut # 8.2 H Lymph # 0.3 L Lucas # 0.3 Eos # 0.0 Baso # 0.0 Neutrophils % (Manual) 74 Band Neutrophils % 14 H* Lymphocytes % (Manual) 6 L Monocytes % (Manual) 6 Platelet Estimate Normal Poikilocytosis (manual Slight Anisocytosis (manual) Slight Puncture Site Rb Rr pCO2 62 H 30 L pO2 70 L 135 H HCO3 20.9 L 29.0 H ABG pH 7.20 L 7.56 H ABG Total CO2 26.1 27.8 ABG O2 Saturation 96.5 98.7 H ABG Base Excess -4.9 L 5.2 H ABG Hemoglobin 13.0 ABG Carboxyhemoglobin 0.8 POC ABG HHb (Measured) 1.3 ABG Methemoglobin 1.0 Jose Maria Test Na Pos A-a O2 Difference 280.0 327.0 Respiratory Index 4.0 2.4 Hgb O2 Saturation 96.9 Vent Mode Bipap Prvc Mechanical Rate 16 FiO2 60.0 70.0 Tidal Volume 400 PEEP 5 Inspiratory BiPAP 20 Expiratory BiPAP 8 Sodium Potassium Chloride Carbon Dioxide Anion Gap BUN Creatinine Est GFR ( Amer) Est GFR (Non-Af Amer) Random Glucose Calcium Phosphorus Magnesium Total Bilirubin AST ALT Alkaline Phosphatase Total Protein Albumin Globulin Albumin/Globulin Ratio 01/10/17 06:16 WBC RBC Hgb Hct MCV MCH MCHC RDW Plt Count MPV Neut % (Auto) Lymph % (Auto) Lucas % (Auto) Eos % (Auto) Baso % (Auto) Neut # Lymph # Lucas # Eos # Baso # Neutrophils % (Manual) Band Neutrophils % Lymphocytes % (Manual) Monocytes % (Manual) Platelet Estimate Poikilocytosis (manual Anisocytosis (manual) Puncture Site pCO2 pO2 HCO3 ABG pH ABG Total CO2 ABG O2 Saturation ABG Base Excess ABG Hemoglobin ABG Carboxyhemoglobin POC ABG HHb (Measured) ABG Methemoglobin Jose Maria Test A-a O2 Difference Respiratory Index Hgb O2 Saturation Vent Mode Mechanical Rate FiO2 Tidal Volume PEEP Inspiratory BiPAP Expiratory BiPAP Sodium 143 Potassium 2.4 L* D Chloride 103 Carbon Dioxide 25 Anion Gap 17 BUN 33 H Creatinine 0.7 Est GFR ( Amer) > 60 Est GFR (Non-Af Amer) > 60 Random Glucose 229 H Calcium 7.8 L Phosphorus 2.3 L Magnesium 1.8 Total Bilirubin 0.8 AST 16 ALT 60 H Alkaline Phosphatase 94 Total Protein 5.9 L Albumin 2.9 L Globulin 3.0 Albumin/Globulin Ratio 1.0 Attending/Attestation - Attestation I have personally seen and examined this patient.: Yes I have fully participated in the care of the patient.: Yes I have reviewed all pertinent clinical information: Yes Notes (Text): I have seen and examined the patient. Medical records, lab studies, and imaging were reviewed by me and a management plan was formulated on multidisciplinary rounds with resident Dr. Lock. I agree with their above documented assessment and plan. Patient is end stage multiple sclerosis, will call for palliative care consult. Treating for aspiration pneumonia. Stopping sedation, to try and start PS trials for vent weaning. Critical Care Time 35 minutes. Multi-disciplinary rounds were performed with house staff, nursing, speech therapy, respiratory therapy, pharmacy and nutrition with integrated input from the primary team/attending and other consulting services. The documented time is cumulative and includes review of patient data/exams/labs/chart review and examination of the patient on rounds and throughout the day; time is exclusive of any procedures or teaching time. 01/10/17 17:34
[2017-01-10 08:26] LABS: NEUTROPHIL 74 % (50-75); TOTAL CELLS COUNTED 100
--- NOTE | 2017-01-10 09:12 | RAD ---
Chest x-ray single frontal view History: Pneumonia. Comparison: 01/09/2017 Findings: Lines and tubes in stable position. Persistent consolidative opacifications seen at both lung bases; right greater than left. Small bilateral pleural effusions. Elevated right hemidiaphragm. Additional patchy consolidative changes within the right mid lung zone. Venous congestion. Tortuous ectatic aorta. Cardiomegaly. Degenerative changes in the spine and shoulders. Impression: Overall no significant interval change.
[2017-01-10] MEDS: Potassium Chloride 20 mEq/15 ml LIQ UD PO ONE ×2 (09:52→09:54)
[2017-01-10] MEDS: Enoxaparin 80 mg Syringe SC SCH ×2 (12:19→21:31)
[2017-01-10] MEDS: Linezolid 600 mg in D5W 300 ml 600 MG/300 ML BAG IVPB SCH ×2 (12:21→23:53)
--- NOTE | 2017-01-10 12:26 | CP.PCM.PN ---
<Jordan Angulo - Last Filed: 01/10/17 14:11> Subjective - Date & Time of Evaluation Date of Evaluation: 01/10/17 Time of Evaluation: 10:30 - Subjective Subjective: Resident Progress Note for Dr. Danielson Patient seen and examined at bedside. No acute events reported overnight. Patient is currently intubated and very lethargic. Unable to obtain detailed ROS due to patient's mental status. Objective - Vital Signs/Intake and Output Vital Signs (last 24 hours): Temp Pulse Resp BP Pulse Ox 98.5 F 72 16 111/66 98 01/10/17 07:55 01/10/17 11:00 01/10/17 11:00 01/10/17 10:16 01/10/17 08:00 Intake and Output: 01/10/17 01/10/17 06:59 18:59 Intake Total 1559.8 704.5 Output Total 1400 370 Balance 159.8 334.5 - Medications Medications: Current Medications Albuterol/Ipratropium (Duoneb 3 Mg/0.5 Mg (3 Ml) Ud) 3 ml INH RQ6 [facility] Last Admin: 01/10/17 07:58 Dose: 3 ml Enoxaparin Sodium (Lovenox) 65 mg SC Q12 [facility] Last Admin: 01/10/17 12:19 Dose: 65 mg Furosemide (Lasix) 40 mg IVP BID [facility] Last Admin: 01/10/17 09:56 Dose: 40 mg Guaifenesin (Robitussin) 200 mg PO Q4H PRN PRN Reason: Cough and congestion Piperacillin Sod/Tazobactam Sod (Zosyn 3.375 Gm Iv Premix) 3.375 gm in 50 mls @ 100 mls/hr IVPB Q8H [facility] Last Admin: 01/10/17 11:40 Dose: 100 mls/hr Linezolid (Zyvox 600mg/300ml D5w) 600 mg in 300 mls @ 200 mls/hr IVPB Q12H [facility] Last Admin: 01/10/17 12:21 Dose: 200 mls/hr Potassium Chloride (Potassium Chloride 20 Meq/100 Ml) 20 meq in 100 mls @ 50 mls/hr IVPB Q2H [facility] Stop: 01/10/17 13:14 Last Admin: 01/10/17 11:07 Dose: 50 mls/hr Lisinopril (Zestril) 5 mg PO DAILY [facility] Last Admin: 01/10/17 09:54 Dose: 5 mg Methylprednisolone (Solu-Medrol) 40 mg IVP Q8H [facility] Last Admin: 01/10/17 09:55 Dose: 40 mg Pantoprazole Sodium (Protonix Inj) 40 mg IVP DAILY [facility] Last Admin: 01/10/17 09:55 Dose: 40 mg Rosuvastatin Calcium (Crestor) 5 mg PO HS [facility] Last Admin: 01/09/17 21:29 Dose: 5 mg - Labs Labs: 01/10/17 06:16 01/10/17 06:16 PT 11.4 SECONDS (9.7-12.2) 01/07/17 10:28 INR 1.0 01/07/17 10:28 APTT 36 SECONDS (21-34) H 01/07/17 10:28 - Constitutional Appears: No Acute Distress, Chronically Ill - Head Exam Head Exam: ATRAUMATIC, NORMAL INSPECTION - Eye Exam Eye Exam: PERRL - ENT Exam ENT Exam: Mucous Membranes Moist - Respiratory Exam Respiratory Exam: Decreased Breath Sounds, Wheezes, NORMAL BREATHING PATTERN - Cardiovascular Exam Cardiovascular Exam: REGULAR RHYTHM, +S1, +S2. absent: Murmur - GI/Abdominal Exam GI & Abdominal Exam: Soft, Normal Bowel Sounds - Neurological Exam Neurological Exam: Awake. absent: Oriented x3 - Psychiatric Exam Psychiatric exam: Normal Affect, Normal Mood - Skin Skin Exam: Normal Color, Warm Assessment and Plan - Assessment and Plan (Free Text) Assessment: CHF -BNP [id number] -Echo performed today reviewed: showing adequate EF, mild pulmonary hypertension -Lasix 40mg IV BID -Hold beta blockers due to acute CHF -Monitor Daily weight and I&O HTN -Continue home Lisinopril 10mg H/o PE -Continue Lovenox 65mg SC Q12 Case discussed with attending Dr. Danielson <Florentino Danielson - Last Filed: 01/12/17 07:18> Objective - Vital Signs/Intake and Output Vital Signs (last 24 hours): Temp Pulse Resp BP Pulse Ox 98 F 71 16 158/81 H 100 01/11/17 19:50 01/12/17 05:21 01/12/17 05:21 01/12/17 05:21 01/12/17 05:21 Intake and Output: 01/12/17 01/12/17 06:59 18:59 Intake Total 520 Output Total 350 Balance 170 - Medications Medications: Current Medications Albuterol/Ipratropium (Duoneb 3 Mg/0.5 Mg (3 Ml) Ud) 3 ml INH RQ6 [facility] Last Admin: 01/12/17 01:47 Dose: 3 ml Enoxaparin Sodium (Lovenox) 65 mg SC Q12 [facility] Last Admin: 01/11/17 22:20 Dose: 65 mg Furosemide (Lasix) 40 mg IVP DAILY [facility] Guaifenesin (Robitussin) 200 mg PO Q4H PRN PRN Reason: Cough and congestion Last Admin: 01/10/17 21:32 Dose: 200 mg Piperacillin Sod/Tazobactam Sod (Zosyn 3.375 Gm Iv Premix) 3.375 gm in 50 mls @ 100 mls/hr IVPB Q8H [facility] Last Admin: 01/12/17 02:31 Dose: 100 mls/hr Lisinopril (Zestril) 5 mg PO DAILY [facility] Last Admin: 01/11/17 09:14 Dose: Not Given Methylprednisolone (Solu-Medrol) 40 mg IVP Q8H [facility] Last Admin: 01/12/17 02:30 Dose: 40 mg Pantoprazole Sodium (Protonix Ec Tab) 40 mg PO DAILY [facility] Rosuvastatin Calcium (Crestor) 5 mg PO HS [facility] Last Admin: 01/11/17 22:19 Dose: 5 mg - Labs Labs: 01/12/17 06:44 01/11/17 06:26 PT 11.4 SECONDS (9.7-12.2) 01/07/17 10:28 INR 1.0 01/07/17 10:28 APTT 36 SECONDS (21-34) H 01/07/17 10:28 Assessment and Plan - Assessment and Plan (Free Text) Plan: 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
[2017-01-10] MEDS: guaiFENesin 200 mg/10 ml Syrup UD PO PRN ×2 (17:46→21:32)
--- NOTE | 2017-01-10 18:43 | CP.PCM.PN ---
Subjective - Date & Time of Evaluation Date of Evaluation: 01/10/17 Time of Evaluation: 08:00 - Subjective Subjective: events noted iv rx in progress Objective - Vital Signs/Intake and Output Vital Signs (last 24 hours): Temp Pulse Resp BP Pulse Ox 97.6 F 69 24 154/95 H 94 L 01/10/17 15:36 01/10/17 17:15 01/10/17 17:15 01/10/17 17:47 01/10/17 17:15 Intake and Output: 01/10/17 01/10/17 06:59 18:59 Intake Total 1559.8 1568.4 Output Total 1400 930 Balance 159.8 638.4 - Medications Medications: Current Medications Albuterol/Ipratropium (Duoneb 3 Mg/0.5 Mg (3 Ml) Ud) 3 ml INH RQ6 [facility] Last Admin: 01/10/17 14:00 Dose: 3 ml Enoxaparin Sodium (Lovenox) 65 mg SC Q12 [facility] Last Admin: 01/10/17 12:19 Dose: 65 mg Furosemide (Lasix) 40 mg IVP BID [facility] Last Admin: 01/10/17 17:47 Dose: 40 mg Guaifenesin (Robitussin) 200 mg PO Q4H PRN PRN Reason: Cough and congestion Last Admin: 01/10/17 17:46 Dose: 200 mg Piperacillin Sod/Tazobactam Sod (Zosyn 3.375 Gm Iv Premix) 3.375 gm in 50 mls @ 100 mls/hr IVPB Q8H [facility] Last Admin: 01/10/17 17:48 Dose: 100 mls/hr Linezolid (Zyvox 600mg/300ml D5w) 600 mg in 300 mls @ 200 mls/hr IVPB Q12H [facility] Last Admin: 01/10/17 12:21 Dose: 200 mls/hr Lisinopril (Zestril) 5 mg PO DAILY [facility] Last Admin: 01/10/17 09:54 Dose: 5 mg Methylprednisolone (Solu-Medrol) 40 mg IVP Q8H [facility] Last Admin: 01/10/17 17:46 Dose: 40 mg Pantoprazole Sodium (Protonix Inj) 40 mg IVP DAILY [facility] Last Admin: 01/10/17 09:55 Dose: 40 mg Rosuvastatin Calcium (Crestor) 5 mg PO HS [facility] Last Admin: 01/09/17 21:29 Dose: 5 mg - Labs Labs: 01/10/17 06:16 01/10/17 06:16 PT 11.4 SECONDS (9.7-12.2) 01/07/17 10:28 INR 1.0 01/07/17 10:28 APTT 36 SECONDS (21-34) H 01/07/17 10:28 - Constitutional Appears: Non-toxic, Chronically Ill - Head Exam Head Exam: NORMOCEPHALIC - Eye Exam Eye Exam: PERRL. absent: Scleral icterus - ENT Exam ENT Exam: Mucous Membranes Dry, Normal External Ear Exam - Neck Exam Neck Exam: absent: Lymphadenopathy - Respiratory Exam Respiratory Exam: Decreased Breath Sounds, Rhonchi - Cardiovascular Exam Cardiovascular Exam: REGULAR RHYTHM - GI/Abdominal Exam GI & Abdominal Exam: Distended - Rectal Exam Rectal Exam: Deferred - Extremities Exam Extremities Exam: Full ROM - Back Exam Back Exam: absent: CVA tenderness (L), CVA tenderness (R) - Neurological Exam Neurological Exam: Altered, Awake Assessment and Plan (1) Sepsis Status: Acute (2) Altered mental status Status: Acute (3) Elevated BUN Status: Acute
--- NOTE | 2017-01-10 19:29 | CP.PCM.PN ---
Subjective - Date & Time of Evaluation Date of Evaluation: 01/10/17 Time of Evaluation: 19:29 - Subjective Subjective: Pt vented, decreasing FiO2 reqt the last 3 days, though appears to be plateauing. Definitely improved from admission, prognosis sstill critical. Objective - Vital Signs/Intake and Output Vital Signs (last 24 hours): Temp Pulse Resp BP Pulse Ox 97.6 F 62 16 154/94 H 95 01/10/17 15:36 01/10/17 19:15 01/10/17 19:15 01/10/17 19:15 01/10/17 19:15 Intake and Output: 01/10/17 01/11/17 18:59 06:59 Intake Total 1668.4 30 Output Total 930 250 Balance 738.4 -220 - Medications Medications: Current Medications Albuterol/Ipratropium (Duoneb 3 Mg/0.5 Mg (3 Ml) Ud) 3 ml INH RQ6 [facility] Last Admin: 01/10/17 19:25 Dose: 3 ml Enoxaparin Sodium (Lovenox) 65 mg SC Q12 [facility] Last Admin: 01/10/17 12:19 Dose: 65 mg Furosemide (Lasix) 40 mg IVP BID [facility] Last Admin: 01/10/17 17:47 Dose: 40 mg Guaifenesin (Robitussin) 200 mg PO Q4H PRN PRN Reason: Cough and congestion Last Admin: 01/10/17 17:46 Dose: 200 mg Piperacillin Sod/Tazobactam Sod (Zosyn 3.375 Gm Iv Premix) 3.375 gm in 50 mls @ 100 mls/hr IVPB Q8H [facility] Last Admin: 01/10/17 17:48 Dose: 100 mls/hr Linezolid (Zyvox 600mg/300ml D5w) 600 mg in 300 mls @ 200 mls/hr IVPB Q12H [facility] Last Admin: 01/10/17 12:21 Dose: 200 mls/hr Lisinopril (Zestril) 5 mg PO DAILY [facility] Last Admin: 01/10/17 09:54 Dose: 5 mg Methylprednisolone (Solu-Medrol) 40 mg IVP Q8H [facility] Last Admin: 01/10/17 17:46 Dose: 40 mg Pantoprazole Sodium (Protonix Inj) 40 mg IVP DAILY [facility] Last Admin: 01/10/17 09:55 Dose: 40 mg Rosuvastatin Calcium (Crestor) 5 mg PO HS [facility] Last Admin: 01/09/17 21:29 Dose: 5 mg - Labs Labs: 01/10/17 06:16 01/10/17 06:16 PT 11.4 SECONDS (9.7-12.2) 01/07/17 10:28 INR 1.0 01/07/17 10:28 APTT 36 SECONDS (21-34) H 01/07/17 10:28 - Constitutional Appears: Other (+ facial edema, on vent) - Head Exam Head Exam: NORMAL INSPECTION, NORMOCEPHALIC - Eye Exam Eye Exam: Normal appearance (sedated lightly but opens eyes) - ENT Exam ENT Exam: Normal Exam - Neck Exam Neck Exam: Normal Inspection - Respiratory Exam Respiratory Exam: Rales Additional comments: on AC vent - Cardiovascular Exam Cardiovascular Exam: REGULAR RHYTHM - GI/Abdominal Exam GI & Abdominal Exam: Hypoactive Bowel Sounds - Rectal Exam Rectal Exam: Deferred (rectal tube installed) - Extremities Exam Extremities Exam: Normal Inspection Additional comments: slightly edematous - Back Exam Additional comments: no rash noted, though with dependent edema - Neurological Exam Additional comments: unable to evaluate reliably 2ndry to sedation - Psychiatric Exam Psychiatric exam: Normal Affect, Normal Mood - Skin Skin Exam: Dry, Intact, Normal Color, Warm Assessment and Plan (1) Septic shock due to coagulase-negative staphylococcal infection Assessment & Plan: + blood culture, ID following and adjusting meds Status: Acute (2) Respiratory failure Assessment & Plan: on vent; improving ever so slightly; cotinue current managemtn Status: Acute (3) HCAP (healthcare-associated pneumonia) Assessment & Plan: on IV abx Status: Acute (4) Multiple sclerosis Assessment & Plan: chronically ill Status: Acute (5) Physical debility Assessment & Plan: unable to move much anymore Status: Acute
[2017-01-11] MEDS: Albuterol-Ipratrop 3 mg / 0.5 (3 ml) UD INH SCH ×4 (01:47→21:05)
[2017-01-11] MEDS: Piperacill/Tazo 3.375gm in Dex 3.375 GM/50 ML BAG IVPB SCH ×3 (02:03→17:29)
[2017-01-11] MEDS: MethylPREDNISolone 40 mg Vial IVP SCH ×3 (02:03→17:32)
[2017-01-11 06:16] LABS: ABG ALLEN TEST POS; ABG MECHANICAL RATE 16; ARTERIAL BLOOD GAS MODE PRVC; ATERIAL BLOOD GAS PEEP 5; CARBOXYHEMOGLOBIN 0.8 % (0.5-1.5); DRAW SITE LR; HHB 1.2 % (0.0-5.0)
[2017-01-11 06:32] LABS: BASO % 0.1 % (0.0-2.0); EOS % 0.1 % (0.0-4.0); HEMATOCRIT 39.1 % (34.0-47.0); LYMPH # 0.3 K/uL (1.0-4.3); LYMPH % 4.9 % (20.0-40.0); MEAN CELL VOLUME 93.1 fL (81.0-99.0); MEAN CORPUSCULAR HEMOGLOBIN 31.3 pg (27.0-31.0); MEAN CORPUSCULAR HGB CONC 33.6 g/dL (33.0-37.0); MEAN PLATELET VOLUME 10.4 fL (7.2-11.7); MONO # 0.2 K/uL (0.0-0.8); MONO % 3.4 % (0.0-10.0); NRBC % 0.3 % (0.0-2.0); PLATELET COUNT 128 K/uL (130-400); RED CELL DISTRIBUTION WIDTH 14.5 % (11.5-14.5); WHITE BLOOD COUNT 7.2 K/uL (4.8-10.8)
[2017-01-11 06:59] LABS: ALB/GLOB RATIO 1.1 (1.0-2.1); ALKALINE PHOSPHATASE 92 U/L (38-126); ALT/SGPT 55 U/L (9-52); AST/SGOT 25 U/L (14-36); BILIRUBIN,TOTAL 0.9 mg/dL (0.2-1.3); BLOOD UREA NITROGEN 28 mg/dL (7-17); CALCIUM 8.4 mg/dl (8.6-10.4); CARBON DIOXIDE 24 mmol/L (22-30); CHLORIDE 94 mmol/L (98-107); GFR AFRICAN-AMERICAN > 60; GLUCOSE,RANDOM 268 mg/dL (65-105); MAGNESIUM 1.8 mg/dL (1.6-2.3); PHOSPHOROUS 1.9 mg/dL (2.5-4.5); POTASSIUM 3.2 mmol/L (3.6-5.2); SODIUM 136 mmol/L (132-148)
--- NOTE | 2017-01-11 08:12 | RAD ---
Chest x-ray single frontal view History: Pneumonia. Comparison: 01/10/2017 Findings: Lines and tubes are in stable position. Prominent diffuse increased interstitial lung markings bilaterally. Biapical pleural thickening with upper lobe granulomatous changes. Elevated right hemidiaphragm. Patchy increased markings at both lung bases; right greater than left suggestive for atelectasis and or infiltrate. Nodular density at the left lung apex may represent prominence of the 1st left rib. Clinical correlation and or correlation with lateral view may be helpful. Prominent degenerative changes in the spine and shoulders. Impression: Lines and tubes are in stable position. Prominent diffuse increased interstitial lung markings bilaterally. Biapical pleural thickening with upper lobe granulomatous changes. Elevated right hemidiaphragm. Patchy increased markings at both lung bases; right greater than left suggestive for atelectasis and or infiltrate. Nodular density at the left lung apex may represent prominence of the 1st left rib. Clinical correlation and or correlation with lateral view may be helpful. Prominent degenerative changes in the spine and shoulders.
[2017-01-11 08:25] LABS: NEUTROPHIL 74 % (50-75); NUCLEATED RED BLOOD CELL 1 % (0-0); TOTAL CELLS COUNTED 100
--- NOTE | 2017-01-11 08:26 | CP.CCUPN ---
<HaydeZain R - Last Filed: 01/11/17 13:34> CCU Subjective - Physician Review Subjective (Free Text): Patient was seen and examined at bedside today. Patient is now alert and following commands. Patient is intubated. ROS were unobtainable. 01/11/17 13:34 CCU Objective - Vital Signs / Intake & Output Vital Signs (Last 4 hours): Vital Signs Temp Pulse Resp BP Pulse Ox 01/11/17 08:00 78 26 H 98 01/11/17 07:45 97.5 F L 01/11/17 07:15 65 22 154/87 H 94 L 01/11/17 07:00 62 16 100 01/11/17 06:16 62 24 135/87 98 01/11/17 06:00 65 24 99 01/11/17 05:15 66 27 H 133/80 88 L 01/11/17 05:00 63 28 H 98 Intake and Output (Last 8hrs): Intake & Output 01/10/17 01/11/17 01/11/17 22:59 06:59 14:59 Intake Total 540 990 60 Output Total 1045 800 120 Balance -505 190 -60 Weight 136 lb 8 oz Intake: Intake, IV Amount 100 350 Right Distal Port 100 Internal Jugular Right Proximal Port 350 Internal Jugular Tube Feeding 240 240 60 Other 200 400 Output: Urine 1045 800 120 Urethral ([place]) 1045 800 120 Other: # Bowel Movements 1 1 0 - Physical Exam Head: Positive for: Atraumatic, Normocephalic Pupils: Positive for: PERRL Mouth: Positive for: Moist Mucous Membranes, Other (w/ dentures) Neck: Negative for: JVD, Lymphadenopathy Respiratory/Chest: Positive for: Respiratory Distress, Wheezes, Other (on ventilator). Negative for: Good Air Exchange Cardiovascular: Positive for: Regular Rate and Rhythm, Normal S1, S2. Negative for: Murmurs, Tachycardic Abdomen: Positive for: Normal Bowel Sounds. Negative for: Distention Upper Extremity: Positive for: NORMAL PULSES. Negative for: Edema Lower Extremity: Positive for: NORMAL PULSES. Negative for: Edema Neurological: Negative for: Speech Normal Skin: Positive for: Warm, Dry, Normal Color Psychiatric: Positive for: Alert, Oriented x 3 - Medications Active Medications: Active Medications Generic Name Dose Route Start Last Admin Trade Name Freq PRN Reason Stop Dose Admin Albuterol/Ipratropium 3 ml 01/08/17 14:00 01/11/17 08:02 Duoneb 3 Mg/0.5 Mg (3 Ml) Ud INH 3 ml RQ6 RAUL Administration Enoxaparin Sodium 65 mg 01/08/17 10:00 01/10/17 21:31 Lovenox SC 65 mg Q12 RAUL Administration Furosemide 40 mg 01/08/17 18:00 01/10/17 17:47 Lasix IVP 40 mg BID RAUL Administration Guaifenesin 200 mg 01/10/17 11:57 01/10/17 21:32 Robitussin PO 200 mg Q4H PRN Administration Cough and congestion Piperacillin Sod/Tazobactam Sod 3.375 gm in 50 mls @ 100 mls/hr 01/08/17 10: 30 01/11/17 02:03 Zosyn 3.375 Gm Iv Premix IVPB 100 mls/hr Q8H RAUL Administration Linezolid 600 mg in 300 mls @ 200 mls/hr 01/08/17 12:15 01/10/17 23:53 Zyvox 600mg/300ml D5w IVPB 200 mls/hr Q12H RAUL Administration Potassium Chloride 20 meq in 100 mls @ 50 mls/hr 01/11/17 07:45 Potassium Chloride 20 Meq/100 Ml IVPB 01/11/17 11:44 Q2H RAUL Lisinopril 5 mg 01/09/17 10:00 01/10/17 09:54 Zestril PO 5 mg DAILY RAUL Administration Methylprednisolone 40 mg 01/08/17 10:00 01/11/17 02:03 Solu-Medrol IVP 40 mg Q8H RAUL Administration Pantoprazole Sodium 40 mg 01/08/17 10:00 01/10/17 09:55 Protonix Inj IVP 40 mg DAILY RAUL Administration Rosuvastatin Calcium 5 mg 01/08/17 22:00 01/10/17 21:31 Crestor PO 5 mg HS RAUL Administration - Patient Studies Lab Studies: Microbiology Studies 01/07/17 23:00 Blood Culture - Preliminary Blood-Venous NO GROWTH AFTER 3 DAYS 01/10/17 19:51 Gram Stain - Final Sputum 01/07/17 10:00 Blood Culture - Preliminary Blood NO GROWTH AFTER 3 DAYS 01/07/17 10:30 Blood Culture - Final Blood Coagulase Neg Staphylococcus Gram Stain - Final 01/07/17 22:30 S.aureus & Coag-Neg Staph PNA FISH - Final Blood-Venous Blood Culture - Preliminary Staphylococcus Sp Coag Neg Gram Stain - Final Lab Studies 01/11/17 01/11/17 01/11/17 Range/Units 06:26 06:26 06:00 WBC 7.2 (4.8-10.8) K/uL RBC 4.20 (3.80-5.20) Mil/uL Hgb 13.1 (11.0-16.0) g/dL Hct 39.1 (34.0-47.0) % MCV 93.1 (81.0-99.0) fL MCH 31.3 H (27.0-31.0) pg MCHC 33.6 (33.0-37.0) g/dL RDW 14.5 (11.5-14.5) % Plt Count 128 L (130-400) K/uL MPV 10.4 (7.2-11.7) fL Neut % (Auto) 91.5 H (50.0-75.0) % Lymph % (Auto) 4.9 L (20.0-40.0) % Glasscock % (Auto) 3.4 (0.0-10.0) % Eos % (Auto) 0.1 (0.0-4.0) % Baso % (Auto) 0.1 (0.0-2.0) % Neut # 6.6 (1.8-7.0) K/uL Lymph # 0.3 L (1.0-4.3) K/uL Glasscock # 0.2 (0.0-0.8) K/uL Eos # 0.0 (0.0-0.7) K/uL Baso # 0.0 (0.0-0.2) K/uL Neutrophils % (Manual) (50-75) % Band Neutrophils % (0-2) % Lymphocytes % (Manual) (20-40) % Monocytes % (Manual) (0-10) % Platelet Estimate (NORMAL) Poikilocytosis (manual Anisocytosis (manual) Puncture Site Lr pCO2 29 L (35-45) mm/Hg pO2 161 H (80-100) mm/Hg HCO3 29.0 H (21-28) mmol/L ABG pH 7.57 H (7.35-7.45) ABG Total CO2 27.5 (22-28) mmol/L ABG O2 Saturation 98.8 H (95-98) % ABG Base Excess 5.3 H (-2.0-3.0) mmol/L ABG Hemoglobin 14.2 (11.7-17.4) g/dL ABG Carboxyhemoglobin 0.8 (0.5-1.5) % POC ABG HHb (Measured) 1.2 (0.0-5.0) % ABG Methemoglobin 1.0 (0.0-3.0) % Jose Maria Test Pos A-a O2 Difference 302.0 mm/Hg Respiratory Index 1.9 Hgb O2 Saturation 97.0 (95.0-98.0) % Vent Mode Prvc Mechanical Rate 16 FiO2 70.0 % Tidal Volume 400 PEEP 5 Sodium 136 (132-148) mmol/L Potassium 3.2 L (3.6-5.2) mmol/L Chloride 94 L (98-107) mmol/L Carbon Dioxide 24 (22-30) mmol/L Anion Gap 21 H (10-20) BUN 28 H (7-17) mg/dL Creatinine 0.6 L (0.7-1.2) MG/DL Est GFR ( Amer) > 60 Est GFR (Non-Af Amer) > 60 Random Glucose 268 H (65-105) mg/dL Calcium 8.4 L (8.6-10.4) mg/dl Phosphorus 1.9 L (2.5-4.5) mg/dL Magnesium 1.8 (1.6-2.3) mg/dL Total Bilirubin 0.9 (0.2-1.3) mg/dL AST 25 (14-36) U/L ALT 55 H (9-52) U/L Alkaline Phosphatase 92 (38-126) U/L Total Protein 6.0 L (6.3-8.3) g/dL Albumin 3.1 L (3.5-5.0) g/dL Globulin 2.9 (2.2-3.9) gm/dL Albumin/Globulin Ratio 1.1 (1.0-2.1) 01/10/17 Range/Units 06:16 WBC (4.8-10.8) K/uL RBC (3.80-5.20) Mil/uL Hgb (11.0-16.0) g/dL Hct (34.0-47.0) % MCV (81.0-99.0) fL MCH (27.0-31.0) pg MCHC (33.0-37.0) g/dL RDW (11.5-14.5) % Plt Count (130-400) K/uL MPV (7.2-11.7) fL Neut % (Auto) (50.0-75.0) % Lymph % (Auto) (20.0-40.0) % Glasscock % (Auto) (0.0-10.0) % Eos % (Auto) (0.0-4.0) % Baso % (Auto) (0.0-2.0) % Neut # (1.8-7.0) K/uL Lymph # (1.0-4.3) K/uL Glasscock # (0.0-0.8) K/uL Eos # (0.0-0.7) K/uL Baso # (0.0-0.2) K/uL Neutrophils % (Manual) 74 (50-75) % Band Neutrophils % 14 H* (0-2) % Lymphocytes % (Manual) 6 L (20-40) % Monocytes % (Manual) 6 (0-10) % Platelet Estimate Normal (NORMAL) Poikilocytosis (manual Slight Anisocytosis (manual) Slight Puncture Site pCO2 (35-45) mm/Hg pO2 (80-100) mm/Hg HCO3 (21-28) mmol/L ABG pH (7.35-7.45) ABG Total CO2 (22-28) mmol/L ABG O2 Saturation (95-98) % ABG Base Excess (-2.0-3.0) mmol/L ABG Hemoglobin (11.7-17.4) g/dL ABG Carboxyhemoglobin (0.5-1.5) % POC ABG HHb (Measured) (0.0-5.0) % ABG Methemoglobin (0.0-3.0) % Jose Maria Test A-a O2 Difference mm/Hg Respiratory Index Hgb O2 Saturation (95.0-98.0) % Vent Mode Mechanical Rate FiO2 % Tidal Volume PEEP Sodium (132-148) mmol/L Potassium (3.6-5.2) mmol/L Chloride (98-107) mmol/L Carbon Dioxide (22-30) mmol/L Anion Gap (10-20) BUN (7-17) mg/dL Creatinine (0.7-1.2) MG/DL Est GFR ( Amer) Est GFR (Non-Af Amer) Random Glucose (65-105) mg/dL Calcium (8.6-10.4) mg/dl Phosphorus (2.5-4.5) mg/dL Magnesium (1.6-2.3) mg/dL Total Bilirubin (0.2-1.3) mg/dL AST (14-36) U/L ALT (9-52) U/L Alkaline Phosphatase (38-126) U/L Total Protein (6.3-8.3) g/dL Albumin (3.5-5.0) g/dL Globulin (2.2-3.9) gm/dL Albumin/Globulin Ratio (1.0-2.1) Laboratory Results - last 24 hr 01/10/17 01/11/17 01/11/17 06:16 06:00 06:26 WBC 7.2 RBC 4.20 Hgb 13.1 Hct 39.1 MCV 93.1 MCH 31.3 H MCHC 33.6 RDW 14.5 Plt Count 128 L MPV 10.4 Neut % (Auto) 91.5 H Lymph % (Auto) 4.9 L Glasscock % (Auto) 3.4 Eos % (Auto) 0.1 Baso % (Auto) 0.1 Neut # 6.6 Lymph # 0.3 L Glasscock # 0.2 Eos # 0.0 Baso # 0.0 Neutrophils % (Manual) 74 Band Neutrophils % 14 H* Lymphocytes % (Manual) 6 L Monocytes % (Manual) 6 Platelet Estimate Normal Poikilocytosis (manual Slight Anisocytosis (manual) Slight Puncture Site Lr pCO2 29 L pO2 161 H HCO3 29.0 H ABG pH 7.57 H ABG Total CO2 27.5 ABG O2 Saturation 98.8 H ABG Base Excess 5.3 H ABG Hemoglobin 14.2 ABG Carboxyhemoglobin 0.8 POC ABG HHb (Measured) 1.2 ABG Methemoglobin 1.0 Jose Maria Test Pos A-a O2 Difference 302.0 Respiratory Index 1.9 Hgb O2 Saturation 97.0 Vent Mode Prvc Mechanical Rate 16 FiO2 70.0 Tidal Volume 400 PEEP 5 Sodium Potassium Chloride Carbon Dioxide Anion Gap BUN Creatinine Est GFR ( Amer) Est GFR (Non-Af Amer) Random Glucose Calcium Phosphorus Magnesium Total Bilirubin AST ALT Alkaline Phosphatase Total Protein Albumin Globulin Albumin/Globulin Ratio 01/11/17 06:26 WBC RBC Hgb Hct MCV MCH MCHC RDW Plt Count MPV Neut % (Auto) Lymph % (Auto) Glasscock % (Auto) Eos % (Auto) Baso % (Auto) Neut # Lymph # Glasscock # Eos # Baso # Neutrophils % (Manual) Band Neutrophils % Lymphocytes % (Manual) Monocytes % (Manual) Platelet Estimate Poikilocytosis (manual Anisocytosis (manual) Puncture Site pCO2 pO2 HCO3 ABG pH ABG Total CO2 ABG O2 Saturation ABG Base Excess ABG Hemoglobin ABG Carboxyhemoglobin POC ABG HHb (Measured) ABG Methemoglobin Jose Maria Test A-a O2 Difference Respiratory Index Hgb O2 Saturation Vent Mode Mechanical Rate FiO2 Tidal Volume PEEP Sodium 136 Potassium 3.2 L Chloride 94 L Carbon Dioxide 24 Anion Gap 21 H BUN 28 H Creatinine 0.6 L Est GFR ( Amer) > 60 Est GFR (Non-Af Amer) > 60 Random Glucose 268 H Calcium 8.4 L Phosphorus 1.9 L Magnesium 1.8 Total Bilirubin 0.9 AST 25 ALT 55 H Alkaline Phosphatase 92 Total Protein 6.0 L Albumin 3.1 L Globulin 2.9 Albumin/Globulin Ratio 1.1 Review of Systems - Review of Systems Systems not reviewed;Unavailable: Intubated Critical Care Progress Note - Vent Settings TIDAL VOLUME:: 400 RESP RATE:: 18 FIO2:: 70 PEEP:: 5 - Extremities/Vascular Does the Patient have a Central Venous Catheter?: Yes Insertion Site: Internal Jugular Vein Does the Patient have a [place]more Catheter?: Yes Catheter Insertion Criteria: Need for accurate measurement of output in critically ill patient Assessment/Plan - Assessment and Plan (Free Text) Assessment: 76 yo F w/ PMHx of Anemia, Anxiety, Arthritis, Cardiac Arrhythmia, COPD, Depression, HTN, Hyperlipidemia, Multiple Sclerosis, Osteoporosis, Peripheral Edema, Pulmonary Embolism, Chronic Kidney Disease, Rheumatoid Arthritis, presents with dyspnea and sepsis. Today 01/11/17: Patient is alert today and able to follow commands. Is/Os are in balance, will switch lasix 40mg to once a day. Will try pressure support today. Will replete phosphorous. Neuro: lethargic; opens eyes to verbal stimuli but unable to follow commands ID: sepsis w/ blood culture positive for gram positive cocci, bands 40 on admission, wbc normal, febrile ID, Dr Lind, on board Pip/Tazo 3.375 g iv q8 started 01/08/17 Blood culture positive for Gram positive cocci 01/07, Urine cultures negative Pulm: hypercapnic respiratory failure Intubated on vent duoneb q6 methylprednisolone 40mg iv q8 Guaifenesin 300mg PO Q4H PRN Nephro: elevated BUN, Cr normal, good urinary output monitor urinary output CV: [place] [id number] furosemide 40mg iv daily GI: elevated ALT Palliative Care: consulted Prophylaxis: DVT: enoxaparin 65mg sc q12 GI: protonix 40mg ivp daily Fluid: NS iv 75 cc/hr <Jonny Figueroa - Last Filed: 01/11/17 17:04> CCU Objective - Vital Signs / Intake & Output Vital Signs (Last 4 hours): Vital Signs Temp Pulse Resp BP Pulse Ox 01/11/17 15:28 98.3 F 01/11/17 15:01 72 24 151/79 H 100 01/11/17 15:00 76 24 100 01/11/17 14:45 72 26 H 142/80 100 01/11/17 14:38 69 32 H 185/84 H 100 01/11/17 14:32 72 31 H 199/100 H 100 01/11/17 14:29 67 27 H 189/92 H 100 01/11/17 14:16 70 33 H 183/82 H 100 01/11/17 14:00 68 25 H 100 01/11/17 13:16 78 25 H 171/109 H 99 Intake and Output (Last 8hrs): Intake & Output 01/11/17 01/11/17 01/11/17 06:59 14:59 22:59 Intake Total 990 539 154 Output Total 800 530 100 Balance 190 9 54 Weight 136 lb 8 oz Intake: Intake, IV Amount 350 299 124 Right Distal Port 175 Internal Jugular Right Proximal Port 350 124 124 Internal Jugular Tube Feeding 240 240 30 Other 400 Output: Urine 800 530 100 Urethral ([place]) 800 530 100 Other: # Bowel Movements 1 1 0 - Medications Active Medications: Active Medications Generic Name Dose Route Start Last Admin Trade Name Freq PRN Reason Stop Dose Admin Albuterol/Ipratropium 3 ml 01/08/17 14:00 01/11/17 13:42 Duoneb 3 Mg/0.5 Mg (3 Ml) Ud INH 3 ml RQ6 RAUL Administration Enoxaparin Sodium 65 mg 01/08/17 10:00 01/11/17 09:13 Lovenox SC 65 mg Q12 RAUL Administration Furosemide 40 mg 01/12/17 10:00 Lasix IVP DAILY RAUL Guaifenesin 200 mg 01/10/17 11:57 01/10/17 21:32 Robitussin PO 200 mg Q4H PRN Administration Cough and congestion Piperacillin Sod/Tazobactam Sod 3.375 gm in 50 mls @ 100 mls/hr 01/08/17 10: 30 01/11/17 11:30 Zosyn 3.375 Gm Iv Premix IVPB 100 mls/hr Q8H RAUL Administration Sodium Phosphate 15 mmole/ 255 mls @ 50 mls/hr 01/11/17 16:00 Sodium Chloride IVPB 01/11/17 21:05 .Q5H6M ONE Lisinopril 5 mg 01/09/17 10:00 01/11/17 09:14 Zestril PO Not Given DAILY RAUL Methylprednisolone 40 mg 01/08/17 10:00 01/11/17 09:11 Solu-Medrol IVP 40 mg Q8H RAUL Administration Pantoprazole Sodium 40 mg 01/08/17 10:00 01/11/17 09:10 Protonix Inj IVP 40 mg DAILY RAUL Administration Rosuvastatin Calcium 5 mg 01/08/17 22:00 01/10/17 21:31 Crestor PO 5 mg HS RAUL Administration - Patient Studies Lab Studies: Microbiology Studies 01/07/17 10:00 Blood Culture - Preliminary Blood NO GROWTH AFTER 4 DAYS 01/07/17 22:30 S.aureus & Coag-Neg Staph PNA FISH - Final Blood-Venous Blood Culture - Final Staphylococcus Sp Coag Neg Gram Stain - Final 01/07/17 23:00 Blood Culture - Preliminary Blood-Venous NO GROWTH AFTER 3 DAYS 01/10/17 19:51 Gram Stain - Final Sputum Lab Studies 01/11/17 01/11/17 01/11/17 Range/Units 06:26 06:26 06:00 WBC 7.2 (4.8-10.8) K/uL RBC 4.20 (3.80-5.20) Mil/uL Hgb 13.1 (11.0-16.0) g/dL Hct 39.1 (34.0-47.0) % MCV 93.1 (81.0-99.0) fL MCH 31.3 H (27.0-31.0) pg MCHC 33.6 (33.0-37.0) g/dL RDW 14.5 (11.5-14.5) % Plt Count 128 L (130-400) K/uL MPV 10.4 (7.2-11.7) fL Neut % (Auto) 91.5 H (50.0-75.0) % Lymph % (Auto) 4.9 L (20.0-40.0) % Glasscock % (Auto) 3.4 (0.0-10.0) % Eos % (Auto) 0.1 (0.0-4.0) % Baso % (Auto) 0.1 (0.0-2.0) % Neut # 6.6 (1.8-7.0) K/uL Lymph # 0.3 L (1.0-4.3) K/uL Glasscock # 0.2 (0.0-0.8) K/uL Eos # 0.0 (0.0-0.7) K/uL Baso # 0.0 (0.0-0.2) K/uL Neutrophils % (Manual) 74 (50-75) % Band Neutrophils % 12 H* (0-2) % Lymphocytes % (Manual) 8 L (20-40) % Monocytes % (Manual) 6 (0-10) % Nucleated RBC % 1 H (0-0) % Toxic Granulation Present Platelet Estimate Slightly decreased L (NORMAL) Large Platelets Present Target Cells Slight Puncture Site Lr pCO2 29 L (35-45) mm/Hg pO2 161 H (80-100) mm/Hg HCO3 29.0 H (21-28) mmol/L ABG pH 7.57 H (7.35-7.45) ABG Total CO2 27.5 (22-28) mmol/L ABG O2 Saturation 98.8 H (95-98) % ABG Base Excess 5.3 H (-2.0-3.0) mmol/L ABG Hemoglobin 14.2 (11.7-17.4) g/dL ABG Carboxyhemoglobin 0.8 (0.5-1.5) % POC ABG HHb (Measured) 1.2 (0.0-5.0) % ABG Methemoglobin 1.0 (0.0-3.0) % Jose Maria Test Pos A-a O2 Difference 302.0 mm/Hg Respiratory Index 1.9 Hgb O2 Saturation 97.0 (95.0-98.0) % Vent Mode Prvc Mechanical Rate 16 FiO2 70.0 % Tidal Volume 400 PEEP 5 Sodium 136 (132-148) mmol/L Potassium 3.2 L (3.6-5.2) mmol/L Chloride 94 L (98-107) mmol/L Carbon Dioxide 24 (22-30) mmol/L Anion Gap 21 H (10-20) BUN 28 H (7-17) mg/dL Creatinine 0.6 L (0.7-1.2) MG/DL Est GFR ( Amer) > 60 Est GFR (Non-Af Amer) > 60 Random Glucose 268 H (65-105) mg/dL Calcium 8.4 L (8.6-10.4) mg/dl Phosphorus 1.9 L (2.5-4.5) mg/dL Magnesium 1.8 (1.6-2.3) mg/dL Total Bilirubin 0.9 (0.2-1.3) mg/dL AST 25 (14-36) U/L ALT 55 H (9-52) U/L Alkaline Phosphatase 92 (38-126) U/L Total Protein 6.0 L (6.3-8.3) g/dL Albumin 3.1 L (3.5-5.0) g/dL Globulin 2.9 (2.2-3.9) gm/dL Albumin/Globulin Ratio 1.1 (1.0-2.1) Laboratory Results - last 24 hr 01/11/17 01/11/17 01/11/17 06:00 06:26 06:26 WBC 7.2 RBC 4.20 Hgb 13.1 Hct 39.1 MCV 93.1 MCH 31.3 H MCHC 33.6 RDW 14.5 Plt Count 128 L MPV 10.4 Neut % (Auto) 91.5 H Lymph % (Auto) 4.9 L Glasscock % (Auto) 3.4 Eos % (Auto) 0.1 Baso % (Auto) 0.1 Neut # 6.6 Lymph # 0.3 L Glasscock # 0.2 Eos # 0.0 Baso # 0.0 Neutrophils % (Manual) 74 Band Neutrophils % 12 H* Lymphocytes % (Manual) 8 L Monocytes % (Manual) 6 Nucleated RBC % 1 H Toxic Granulation Present Platelet Estimate Slightly decreased L Large Platelets Present Target Cells Slight Puncture Site Lr pCO2 29 L pO2 161 H HCO3 29.0 H ABG pH 7.57 H ABG Total CO2 27.5 ABG O2 Saturation 98.8 H ABG Base Excess 5.3 H ABG Hemoglobin 14.2 ABG Carboxyhemoglobin 0.8 POC ABG HHb (Measured) 1.2 ABG Methemoglobin 1.0 Jose Maria Test Pos A-a O2 Difference 302.0 Respiratory Index 1.9 Hgb O2 Saturation 97.0 Vent Mode Prvc Mechanical Rate 16 FiO2 70.0 Tidal Volume 400 PEEP 5 Sodium 136 Potassium 3.2 L Chloride 94 L Carbon Dioxide 24 Anion Gap 21 H BUN 28 H Creatinine 0.6 L Est GFR ( Amer) > 60 Est GFR (Non-Af Amer) > 60 Random Glucose 268 H Calcium 8.4 L Phosphorus 1.9 L Magnesium 1.8 Total Bilirubin 0.9 AST 25 ALT 55 H Alkaline Phosphatase 92 Total Protein 6.0 L Albumin 3.1 L Globulin 2.9 Albumin/Globulin Ratio 1.1 Attending/Attestation - Attestation I have personally seen and examined this patient.: Yes I have fully participated in the care of the patient.: Yes I have reviewed all pertinent clinical information: Yes Notes (Text): 01/11/17 17:00 I have seen and examined the patient. Medical records, lab studies, and imaging were reviewed by me and a management plan was formulated on multidisciplinary rounds with resident Dr. Lock. I agree with their above documented assessment and plan. Patient tolerating PS trials, should be extubatable by tomorrow. Pneumonia less evident on imaging, raised right dorothy-diaphragm. Bandemia decreasing continue antibiotics. Critical Care Time 35 minutes. Multi-disciplinary rounds were performed with house staff, nursing, speech therapy, respiratory therapy, pharmacy and nutrition with integrated input from the primary team/attending and other consulting services. The documented time is cumulative and includes review of patient data/exams/labs/chart review and examination of the patient on rounds and throughout the day; time is exclusive of any procedures or teaching time. 01/11/17 17:03
[2017-01-11 08:27] LABS: LARGE PLATELETS PRESENT
[2017-01-11] MEDS: Enoxaparin 80 mg Syringe SC SCH ×2 (09:13→22:20)
[2017-01-11] MEDS ORDERED: Sodium Phosphate 15 MMOLE in Sodium Chloride 0.9% 250 ML IVPB ONE ×2 (11:00→16:00)
--- NOTE | 2017-01-11 14:31 | CP.PCM.PN ---
<Jordan Angulo - Last Filed: 01/11/17 14:28> Subjective - Date & Time of Evaluation Date of Evaluation: 01/11/17 Time of Evaluation: 11:00 - Subjective Subjective: Resident Progress Note for Dr. Danielson Patient seen and examined at bedside. No acute events reported overnight. Patient remains intubated, but more alert today. Unable to obtain detailed ROS due to patient's mental status. Objective - Vital Signs/Intake and Output Vital Signs (last 24 hours): Temp Pulse Resp BP Pulse Ox 98.4 F 70 22 133/96 H 100 01/11/17 12:05 01/11/17 13:00 01/11/17 13:00 01/11/17 12:16 01/11/17 13:00 Intake and Output: 01/11/17 01/11/17 06:59 18:59 Intake Total 1110 385 Output Total 1600 400 Balance -490 -15 - Medications Medications: Current Medications Albuterol/Ipratropium (Duoneb 3 Mg/0.5 Mg (3 Ml) Ud) 3 ml INH RQ6 [facility] Last Admin: 01/11/17 13:42 Dose: 3 ml Enoxaparin Sodium (Lovenox) 65 mg SC Q12 [facility] Last Admin: 01/11/17 09:13 Dose: 65 mg Furosemide (Lasix) 40 mg IVP DAILY [facility] Guaifenesin (Robitussin) 200 mg PO Q4H PRN PRN Reason: Cough and congestion Last Admin: 01/10/17 21:32 Dose: 200 mg Piperacillin Sod/Tazobactam Sod (Zosyn 3.375 Gm Iv Premix) 3.375 gm in 50 mls @ 100 mls/hr IVPB Q8H [facility] Last Admin: 01/11/17 11:30 Dose: 100 mls/hr Sodium Phosphate 15 mmole/ (Sodium Chloride) 255 mls @ 50 mls/hr IVPB .Q5H6M ONE Stop: 01/11/17 16:05 Last Admin: 01/11/17 11:53 Dose: 50 mls/hr Sodium Phosphate 15 mmole/ (Sodium Chloride) 255 mls @ 50 mls/hr IVPB .Q5H6M ONE Stop: 01/11/17 21:05 Lisinopril (Zestril) 5 mg PO DAILY [facility] Last Admin: 01/11/17 09:14 Dose: Not Given Methylprednisolone (Solu-Medrol) 40 mg IVP Q8H [facility] Last Admin: 01/11/17 09:11 Dose: 40 mg Pantoprazole Sodium (Protonix Inj) 40 mg IVP DAILY [facility] Last Admin: 01/11/17 09:10 Dose: 40 mg Rosuvastatin Calcium (Crestor) 5 mg PO HS [facility] Last Admin: 01/10/17 21:31 Dose: 5 mg - Labs Labs: 01/11/17 06:26 01/11/17 06:26 PT 11.4 SECONDS (9.7-12.2) 01/07/17 10:28 INR 1.0 01/07/17 10:28 APTT 36 SECONDS (21-34) H 01/07/17 10:28 - Constitutional Appears: No Acute Distress, Chronically Ill - Head Exam Head Exam: ATRAUMATIC, NORMAL INSPECTION - Eye Exam Eye Exam: PERRL - Respiratory Exam Respiratory Exam: Decreased Breath Sounds, Wheezes, NORMAL BREATHING PATTERN - Cardiovascular Exam Cardiovascular Exam: REGULAR RHYTHM, +S1, +S2 - GI/Abdominal Exam GI & Abdominal Exam: Soft, Normal Bowel Sounds - Neurological Exam Neurological Exam: Awake. absent: Oriented x3 - Psychiatric Exam Psychiatric exam: Normal Affect, Normal Mood - Skin Skin Exam: Normal Color, Warm Assessment and Plan - Assessment and Plan (Free Text) Assessment: CHF -BNP [id number] -Echo performed today reviewed: showing adequate EF, mild pulmonary hypertension -Continue Lasix 40mg IV -Monitor Daily weight and I&O HTN -Continue home Lisinopril 10mg, hold if pt becomes hypotensive H/o PE -Continue Lovenox 65mg SC Q12 Case discussed with attending Dr. Danielson <Florentino Danielson - Last Filed: 01/12/17 07:19> Objective - Vital Signs/Intake and Output Vital Signs (last 24 hours): Temp Pulse Resp BP Pulse Ox 98 F 71 16 158/81 H 100 01/11/17 19:50 01/12/17 05:21 01/12/17 05:21 01/12/17 05:21 01/12/17 05:21 Intake and Output: 01/12/17 01/12/17 06:59 18:59 Intake Total 520 Output Total 350 Balance 170 - Medications Medications: Current Medications Albuterol/Ipratropium (Duoneb 3 Mg/0.5 Mg (3 Ml) Ud) 3 ml INH RQ6 [facility] Last Admin: 01/12/17 01:47 Dose: 3 ml Enoxaparin Sodium (Lovenox) 65 mg SC Q12 [facility] Last Admin: 01/11/17 22:20 Dose: 65 mg Furosemide (Lasix) 40 mg IVP DAILY [facility] Guaifenesin (Robitussin) 200 mg PO Q4H PRN PRN Reason: Cough and congestion Last Admin: 01/10/17 21:32 Dose: 200 mg Piperacillin Sod/Tazobactam Sod (Zosyn 3.375 Gm Iv Premix) 3.375 gm in 50 mls @ 100 mls/hr IVPB Q8H [facility] Last Admin: 01/12/17 02:31 Dose: 100 mls/hr Lisinopril (Zestril) 5 mg PO DAILY [facility] Last Admin: 01/11/17 09:14 Dose: Not Given Methylprednisolone (Solu-Medrol) 40 mg IVP Q8H [facility] Last Admin: 01/12/17 02:30 Dose: 40 mg Pantoprazole Sodium (Protonix Ec Tab) 40 mg PO DAILY [facility] Rosuvastatin Calcium (Crestor) 5 mg PO HS [facility] Last Admin: 01/11/17 22:19 Dose: 5 mg - Labs Labs: 01/12/17 06:44 01/11/17 06:26 PT 11.4 SECONDS (9.7-12.2) 01/07/17 10:28 INR 1.0 01/07/17 10:28 APTT 36 SECONDS (21-34) H 01/07/17 10:28 Assessment and Plan - Assessment and Plan (Free Text) Assessment: Patient seen and evaluated Plan of care as discussed
--- NOTE | 2017-01-11 18:38 | CP.PCM.PN ---
Subjective - Date & Time of Evaluation Date of Evaluation: 01/11/17 Time of Evaluation: 09:00 - Subjective Subjective: awake alert on vent nad cultures noted zyvox d/c'd Objective - Vital Signs/Intake and Output Vital Signs (last 24 hours): Temp Pulse Resp BP Pulse Ox 98.3 F 80 24 134/62 97 01/11/17 15:28 01/11/17 17:02 01/11/17 17:02 01/11/17 16:41 01/11/17 17:02 Intake and Output: 01/11/17 01/11/17 06:59 18:59 Intake Total 1110 785 Output Total 1600 680 Balance -490 105 - Medications Medications: Current Medications Albuterol/Ipratropium (Duoneb 3 Mg/0.5 Mg (3 Ml) Ud) 3 ml INH RQ6 [facility] Last Admin: 01/11/17 13:42 Dose: 3 ml Enoxaparin Sodium (Lovenox) 65 mg SC Q12 [facility] Last Admin: 01/11/17 09:13 Dose: 65 mg Furosemide (Lasix) 40 mg IVP DAILY [facility] Guaifenesin (Robitussin) 200 mg PO Q4H PRN PRN Reason: Cough and congestion Last Admin: 01/10/17 21:32 Dose: 200 mg Piperacillin Sod/Tazobactam Sod (Zosyn 3.375 Gm Iv Premix) 3.375 gm in 50 mls @ 100 mls/hr IVPB Q8H [facility] Last Admin: 01/11/17 17:29 Dose: 100 mls/hr Sodium Phosphate 15 mmole/ (Sodium Chloride) 255 mls @ 50 mls/hr IVPB .Q5H6M ONE Stop: 01/11/17 21:05 Last Admin: 01/11/17 16:45 Dose: 50 mls/hr Lisinopril (Zestril) 5 mg PO DAILY [facility] Last Admin: 01/11/17 09:14 Dose: Not Given Methylprednisolone (Solu-Medrol) 40 mg IVP Q8H [facility] Last Admin: 01/11/17 17:32 Dose: 40 mg Pantoprazole Sodium (Protonix Inj) 40 mg IVP DAILY [facility] Last Admin: 01/11/17 09:10 Dose: 40 mg Rosuvastatin Calcium (Crestor) 5 mg PO HS [facility] Last Admin: 01/10/17 21:31 Dose: 5 mg - Labs Labs: 01/11/17 06:26 01/11/17 06:26 PT 11.4 SECONDS (9.7-12.2) 01/07/17 10:28 INR 1.0 01/07/17 10:28 APTT 36 SECONDS (21-34) H 01/07/17 10:28 - Constitutional Appears: Non-toxic, Chronically Ill - Head Exam Head Exam: NORMOCEPHALIC - Eye Exam Eye Exam: PERRL - ENT Exam ENT Exam: Mucous Membranes Dry - Neck Exam Neck Exam: absent: Lymphadenopathy - Respiratory Exam Respiratory Exam: Decreased Breath Sounds - Cardiovascular Exam Cardiovascular Exam: REGULAR RHYTHM - GI/Abdominal Exam GI & Abdominal Exam: Distended, Soft - Rectal Exam Rectal Exam: Deferred - Exam Exam: NORMAL INSPECTION - Extremities Exam Extremities Exam: absent: Pedal Edema - Back Exam Back Exam: absent: CVA tenderness (L), CVA tenderness (R) Assessment and Plan (1) Sepsis Status: Acute (2) Altered mental status Status: Acute (3) Elevated BUN Status: Acute
--- NOTE | 2017-01-11 23:08 | CP.PCM.PN ---
Subjective - Date & Time of Evaluation Date of Evaluation: 01/11/17 Time of Evaluation: 19:20 - Subjective Subjective: Monitoring pt and her response to current treatment. Appears stabiizing. Repeat bloodwork and pulmo evaluation in AM. Still on vent Objective - Vital Signs/Intake and Output Vital Signs (last 24 hours): Temp Pulse Resp BP Pulse Ox 98 F 87 29 H 130/72 98 01/11/17 19:50 01/11/17 22:01 01/11/17 22:01 01/11/17 22:01 01/11/17 22:01 Intake and Output: 01/11/17 01/12/17 18:59 06:59 Intake Total 927 Output Total 730 Balance 197 - Medications Medications: Current Medications Albuterol/Ipratropium (Duoneb 3 Mg/0.5 Mg (3 Ml) Ud) 3 ml INH RQ6 [facility] Last Admin: 01/11/17 21:05 Dose: 3 ml Enoxaparin Sodium (Lovenox) 65 mg SC Q12 [facility] Last Admin: 01/11/17 22:20 Dose: 65 mg Furosemide (Lasix) 40 mg IVP DAILY [facility] Guaifenesin (Robitussin) 200 mg PO Q4H PRN PRN Reason: Cough and congestion Last Admin: 01/10/17 21:32 Dose: 200 mg Piperacillin Sod/Tazobactam Sod (Zosyn 3.375 Gm Iv Premix) 3.375 gm in 50 mls @ 100 mls/hr IVPB Q8H [facility] Last Admin: 01/11/17 17:29 Dose: 100 mls/hr Lisinopril (Zestril) 5 mg PO DAILY [facility] Last Admin: 01/11/17 09:14 Dose: Not Given Methylprednisolone (Solu-Medrol) 40 mg IVP Q8H [facility] Last Admin: 01/11/17 17:32 Dose: 40 mg Pantoprazole Sodium (Protonix Ec Tab) 40 mg PO DAILY [facility] Rosuvastatin Calcium (Crestor) 5 mg PO HS [facility] Last Admin: 01/11/17 22:19 Dose: 5 mg - Labs Labs: 01/11/17 06:26 01/11/17 06:26 PT 11.4 SECONDS (9.7-12.2) 01/07/17 10:28 INR 1.0 01/07/17 10:28 APTT 36 SECONDS (21-34) H 01/07/17 10:28 - Constitutional Appears: No Acute Distress - Head Exam Head Exam: NORMAL INSPECTION, NORMOCEPHALIC Additional comments: intubated - Eye Exam Eye Exam: Normal appearance Pupil Exam: Fixed Additional comments: sedated - ENT Exam ENT Exam: Normal Exam - Neck Exam Neck Exam: Normal Inspection - Respiratory Exam Respiratory Exam: Rales, Rhonchi - Cardiovascular Exam Cardiovascular Exam: REGULAR RHYTHM - GI/Abdominal Exam GI & Abdominal Exam: Hypoactive Bowel Sounds - Rectal Exam Rectal Exam: Deferred - Back Exam Back Exam: NORMAL INSPECTION - Neurological Exam Additional comments: sedated - Skin Skin Exam: Cyanosis, Pallor Assessment and Plan (1) Septic shock due to coagulase-negative staphylococcal infection Assessment & Plan: support cardiovascular status + respiratory support via vent until pt more stable. Test weaning parameters from vent daily Status: Deleted (2) Respiratory failure Assessment & Plan: most prob from pneumonia. no other focus found at htis time Status: Resolved (3) HCAP (healthcare-associated pneumonia) Assessment & Plan: as above Status: Resolved (4) Multiple sclerosis Assessment & Plan: prob progressing, hence the increasing weakness noted at the NH Status: Chronic (5) Physical debility Assessment & Plan: 2ndry to MS but at baseline Status: Chronic
[2017-01-12] MEDS: Albuterol-Ipratrop 3 mg / 0.5 (3 ml) UD INH SCH ×4 (01:47→20:20)
[2017-01-12] MEDS: MethylPREDNISolone 40 mg Vial IVP SCH ×3 (02:30→22:15)
[2017-01-12] MEDS: Piperacill/Tazo 3.375gm in Dex 3.375 GM/50 ML BAG IVPB SCH ×3 (02:31→18:02)
[2017-01-12 05:52] LABS: ABG ALLEN TEST POS; ABG MECHANICAL RATE 16; ARTERIAL BLOOD GAS MODE PRVC; ARTERIAL BLOOD HGB O2 SAT 92.7 % (95.0-98.0); ATERIAL BLOOD GAS PEEP 5; CARBOXYHEMOGLOBIN 1.4 % (0.5-1.5); DRAW SITE RR; HHB 4.7 % (0.0-5.0); METHEMOGLOBIN 1.3 % (0.0-3.0)
[2017-01-12 06:54] LABS: BASO % 0.1 % (0.0-2.0); HEMATOCRIT 37.7 % (34.0-47.0); LYMPH # 0.4 K/uL (1.0-4.3); LYMPH % 4.7 % (20.0-40.0); MEAN CELL VOLUME 91.6 fL (81.0-99.0); MEAN CORPUSCULAR HEMOGLOBIN 30.8 pg (27.0-31.0); MEAN CORPUSCULAR HGB CONC 33.7 g/dL (33.0-37.0); MEAN PLATELET VOLUME 9.6 fL (7.2-11.7); MONO # 0.3 K/uL (0.0-0.8); PLATELET COUNT 138 K/uL (130-400); RED CELL DISTRIBUTION WIDTH 14.5 % (11.5-14.5); WHITE BLOOD COUNT 8.8 K/uL (4.8-10.8)
[2017-01-12 07:10] LABS: ALB/GLOB RATIO 1.1 (1.0-2.1); ALKALINE PHOSPHATASE 82 U/L (38-126); ALT/SGPT 49 U/L (9-52); AST/SGOT 21 U/L (14-36); BILIRUBIN,TOTAL 0.8 mg/dL (0.2-1.3); BLOOD UREA NITROGEN 22 mg/dL (7-17); CALCIUM 7.7 mg/dl (8.6-10.4); CARBON DIOXIDE 29 mmol/L (22-30); CHLORIDE 93 mmol/L (98-107); GFR AFRICAN-AMERICAN > 60; GLUCOSE,RANDOM 216 mg/dL (65-105); MAGNESIUM 1.8 mg/dL (1.6-2.3); PHOSPHOROUS 3.3 mg/dL (2.5-4.5); SODIUM 137 mmol/L (132-148); TOTAL PROTEIN 5.5 g/dL (6.3-8.3)
[2017-01-12 07:19] LABS: POTASSIUM 2.5 mmol/L (3.6-5.2)
--- NOTE | 2017-01-12 08:45 | RAD ---
Chest x-ray single frontal view History: Intubated. Comparison: 01/11/2017 Findings: Lines and tubes in stable position. Moderate right pleural effusion with prominent right basilar airspace consolidation. Right hilar prominence. Prominent diffuse increased interstitial lung markings. Biapical pleural thickening with upper lobe granulomatous changes ; right greater than left. Tortuous ectatic aorta. Cardiomegaly. Degenerative changes in the spine and shoulders. Impression: Lines and tubes in stable position. Moderate right pleural effusion with prominent right basilar airspace consolidation. Right hilar prominence. Prominent diffuse increased interstitial lung markings. Biapical pleural thickening with upper lobe granulomatous changes ; right greater than left. Tortuous ectatic aorta. Cardiomegaly.
[2017-01-12 08:56] LABS: NEUTROPHIL 84 % (50-75); TOTAL CELLS COUNTED 100
[2017-01-12 08:57] LABS: LARGE PLATELETS PRESENT
--- NOTE | 2017-01-12 09:37 | CARD ---
APPROVED REPORT EKG Measurement Heart [id number] <Conclusion> Sinus tachycardia Otherwise normal ECG
--- NOTE | 2017-01-12 09:37 | CARD ---
APPROVED REPORT EKG Measurement Heart [id number] <Conclusion> Sinus tachycardia Otherwise normal ECG
[2017-01-12] MEDS: Pantoprazole 40 mg EC Tab PO SCH ×2 (09:57→15:36)
[2017-01-12] MEDS ORDERED: Pantoprazole 40 mg Susp UD PEG SCH (10:15)
[2017-01-12] MEDS: Pantoprazole 40 mg Susp UD GT SCH (10:18)
--- NOTE | 2017-01-12 22:38 | CP.PCM.PN ---
Subjective - Date & Time of Evaluation Date of Evaluation: 01/12/17 Time of Evaluation: 22:37 - Subjective Subjective: Pt still intubated, settings the same as before O2 reqt appears to be decreasing , though evaluating day to day. Pt's pH at 7.56 Reviewed all labs with several electrolytes needing correction. Gave appropriate orders and endoresed to nurse on duty. Objective - Vital Signs/Intake and Output Vital Signs (last 24 hours): Temp Pulse Resp BP Pulse Ox 98.6 F 113 H 18 104/78 97 01/12/17 20:00 01/12/17 22:01 01/12/17 22:01 01/12/17 22:01 01/12/17 22:01 Intake and Output: 01/12/17 01/13/17 18:59 06:59 Intake Total 630 180 Output Total 562 125 Balance 68 55 - Medications Medications: Current Medications Albuterol/Ipratropium (Duoneb 3 Mg/0.5 Mg (3 Ml) Ud) 3 ml INH RQ6 [facility] Last Admin: 01/12/17 20:20 Dose: 3 ml Furosemide (Lasix) 40 mg IVP DAILY [facility] Last Admin: 01/12/17 09:57 Dose: 40 mg Piperacillin Sod/Tazobactam Sod (Zosyn 3.375 Gm Iv Premix) 3.375 gm in 50 mls @ 100 mls/hr IVPB Q8H [facility] Last Admin: 01/12/17 18:02 Dose: 100 mls/hr Fluconazole (Diflucan Iv 200 Mg/100 Ml Ns) 100 mls @ 100 mls/hr IVPB DAILY [facility] Lisinopril (Zestril) 5 mg PO DAILY [facility] Last Admin: 01/12/17 09:57 Dose: 5 mg Methylprednisolone (Solu-Medrol) 40 mg IVP Q12 [facility] Last Admin: 01/12/17 22:15 Dose: 40 mg Pantoprazole Sodium (Protonix Susp) 40 mg GT DAILY [facility] Last Admin: 01/12/17 10:18 Dose: 40 mg Rosuvastatin Calcium (Crestor) 5 mg PO HS [facility] Last Admin: 01/12/17 22:15 Dose: 5 mg - Labs Labs: 01/12/17 06:44 01/12/17 06:44 PT 11.4 SECONDS (9.7-12.2) 01/07/17 10:28 INR 1.0 01/07/17 10:28 APTT 36 SECONDS (21-34) H 01/07/17 10:28 - Head Exam Head Exam: NORMAL INSPECTION, NORMOCEPHALIC Additional comments: intubated - Eye Exam Pupil Exam: NORMAL ACCOMODATION - ENT Exam ENT Exam: Normal Exam - Neck Exam Neck Exam: Normal Inspection Additional comments: no JVD - Cardiovascular Exam Cardiovascular Exam: REGULAR RHYTHM - GI/Abdominal Exam GI & Abdominal Exam: Diminished Bowel Sounds - Rectal Exam Rectal Exam: Deferred Assessment and Plan (1) Septic shock due to coagulase-negative staphylococcal infection Assessment & Plan: Pt still with low bp, but does not require pressors at this time Runs on the low side though, and put in parameters for lasix and DWAYNE-I to b held at certain cut-off values. Status: Acute (2) Respiratory failure Status: Acute (3) HCAP (healthcare-associated pneumonia) Assessment & Plan: On Zosyn at this time, after initiated with vancomycin. though CBC total WBC has declined, % neutrophils is climbing and anticipate pt getting septic. Will order approrpiate labs. Status: Acute (4) Multiple sclerosis Assessment & Plan: end-stage, not taking any meds since had become unresponsive to most; on adjuvant pulse steroid tx as needed. Status: Chronic (5) Physical debility Assessment & Plan: bedside PT if able Status: Acute (6) Hypokalemia Assessment & Plan: replete aggressively with 40 meq IVPB and 20 meq bid via OGT and monitor Status: Acute (7) Hypocalcemia Assessment & Plan: replete as necessary Status: Acute (8) Metabolic alkalosis Assessment & Plan: will obtain new abg in AM and adjust as necessary Status: Acute
--- NOTE | 2017-01-13 00:24 | CP.CCUPN ---
CCU Subjective - Physician Review Events Since Last Encounter (Free Text): 01/13/17 00:24 Patient with a history of atrial fibrillation, COPD, hypertension, high cholesterol, osteoporosis, history of DVT and pulmonary embolism renal insufficiency admitted with acute respiratory failure. Patient got intubated because of the worsening distress. She still on high FiO2. Vital signs reviewed No neck vein distention noted Bilateral wheezing CVS regular heart sound, no murmur noted Abdomen soft, nontender. Pedal edema noted Sedated on ventilator Labs reviewed in Chest x-ray showing right lower lung pneumonia, also has a significant bleeding from the endotracheal tube Lovenox is on hold, heparin is on hold CXR rt lung pneumonia noted Assessment and recommendation: Patient is a 76-year-old female with the acute on chronic respiratory failure. DVT PE. Acute exacerbation of COPD. possible pneumonia On antibiotic. Unable to anticoagulate her secondary to bleeding. Weaning as tolerated will follow the patient 01/13/17 08:36 CCU Objective - Vital Signs / Intake & Output Vital Signs (Last 4 hours): Vital Signs Pulse Resp BP Pulse Ox 01/12/17 23:01 94 H 16 95/49 L 94 L 01/12/17 22:01 113 H 18 104/78 97 01/12/17 21:01 89 16 105/56 L 98 Intake and Output (Last 8hrs): Intake & Output 01/12/17 01/12/17 01/13/17 14:59 22:59 06:59 Intake Total 460 450 205 Output Total 380 307 Balance 80 143 205 Intake: Intake, IV Amount 250 50 175 Right Distal Port 50 50 Internal Jugular Right Medial Port 50 Internal Jugular Right Proximal Port 200 125 Internal Jugular Oral 160 Tube Feeding 210 240 30 Output: Urine 380 307 Urethral ([place]) 380 307 - Physical Exam Head: Positive for: Atraumatic, Normocephalic Pupils: Positive for: PERRL Mouth: Positive for: Moist Mucous Membranes, Other (w/ dentures) Neck: Negative for: JVD, Lymphadenopathy Respiratory/Chest: Positive for: Respiratory Distress, Wheezes, Other (on ventilator). Negative for: Good Air Exchange Cardiovascular: Positive for: Regular Rate and Rhythm, Normal S1, S2. Negative for: Murmurs, Tachycardic Abdomen: Positive for: Normal Bowel Sounds. Negative for: Distention Upper Extremity: Positive for: NORMAL PULSES. Negative for: Edema Lower Extremity: Positive for: NORMAL PULSES. Negative for: Edema Neurological: Negative for: Speech Normal Skin: Positive for: Warm, Dry, Normal Color Psychiatric: Positive for: Alert, Oriented x 3 - Medications Active Medications: Active Medications Generic Name Dose Route Start Last Admin Trade Name Freq PRN Reason Stop Dose Admin Albuterol/Ipratropium 3 ml 01/08/17 14:00 01/12/17 20:20 Duoneb 3 Mg/0.5 Mg (3 Ml) Ud INH 3 ml RQ6 [facility] Administration Furosemide 20 mg 01/12/17 22:45 Lasix IVP DAILY [facility] Piperacillin Sod/Tazobactam Sod 3.375 gm in 50 mls @ 100 mls/hr 01/08/17 10: 30 01/12/17 18:02 Zosyn 3.375 Gm Iv Premix IVPB 100 mls/hr Q8H [facility] Administration Fluconazole 100 mls @ 100 mls/hr 01/13/17 10:00 Diflucan Iv 200 Mg/100 Ml Ns IVPB DAILY [facility] Potassium Chloride 20 meq in 100 mls @ 50 mls/hr 01/12/17 23:00 01/12/17 23: 25 Potassium Chloride 20 Meq/100 Ml IVPB 01/13/17 00:59 50 mls/hr ONCE ONE Administration Potassium Chloride 20 meq in 100 mls @ 50 mls/hr 01/13/17 01:00 Potassium Chloride 20 Meq/100 Ml IVPB 01/13/17 02:59 ONCE ONE Calcium Gluconate 2,000 mg/ 270 mls @ 125 mls/hr 01/12/17 22:50 01/12/17 23: 12 Sodium Chloride IVPB 01/13/17 00:59 125 mls/hr ONCE ONE Administration Calcium Gluconate 2,000 mg/ 270 mls @ 125 mls/hr 01/13/17 08:00 Sodium Chloride IVPB 01/13/17 10:09 ONCE ONE Lisinopril 5 mg 01/09/17 10:00 01/12/17 09:57 Zestril PO 5 mg DAILY [facility] Administration Methylprednisolone 40 mg 01/12/17 10:00 01/12/17 22:15 Solu-Medrol IVP 40 mg Q12 [facility] Administration Pantoprazole Sodium 40 mg 01/12/17 10:15 01/12/17 10:18 Protonix Susp GT 40 mg DAILY [facility] Administration Potassium Chloride 20 meq 01/13/17 10:00 Potassium Chloride Oral Soln NG BID [facility] Rosuvastatin Calcium 5 mg 01/08/17 22:00 01/12/17 22:15 Crestor PO 5 mg HS [facility] Administration - Patient Studies Lab Studies: Microbiology Studies 01/07/17 23:00 Blood Culture - Final Blood-Venous NO GROWTH AFTER 5 DAYS Gram Stain - Final TEST NOT PERFORMED 01/07/17 10:00 Blood Culture - Final Blood NO GROWTH AFTER 5 DAYS Gram Stain - Final TEST NOT PERFORMED 01/10/17 19:51 Gram Stain - Final Sputum Sputum Culture - Final Yeast Species Lab Studies 01/12/17 01/12/17 01/12/17 Range/Units 06:44 06:44 05:19 WBC 8.8 (4.8-10.8) K/uL RBC 4.12 (3.80-5.20) Mil/uL Hgb 12.7 (11.0-16.0) g/dL Hct 37.7 (34.0-47.0) % MCV 91.6 (81.0-99.0) fL MCH 30.8 (27.0-31.0) pg MCHC 33.7 (33.0-37.0) g/dL RDW 14.5 (11.5-14.5) % Plt Count 138 (130-400) K/uL MPV 9.6 (7.2-11.7) fL Neut % (Auto) 92.2 H (50.0-75.0) % Lymph % (Auto) 4.7 L (20.0-40.0) % [place] % (Auto) 3.0 (0.0-10.0) % Eos % (Auto) 0.0 (0.0-4.0) % Baso % (Auto) 0.1 (0.0-2.0) % Neut # 8.1 H (1.8-7.0) K/uL Lymph # 0.4 L (1.0-4.3) K/uL [place] # 0.3 (0.0-0.8) K/uL Eos # 0.0 (0.0-0.7) K/uL Baso # 0.0 (0.0-0.2) K/uL Neutrophils % (Manual) 84 H (50-75) % Band Neutrophils % 6 H (0-2) % Lymphocytes % (Manual) 8 L (20-40) % Monocytes % (Manual) 2 (0-10) % Toxic Granulation Present Platelet Estimate Normal (NORMAL) Large Platelets Present Anisocytosis (manual) Slight Puncture Site Rr pCO2 35 (35-45) mm/Hg pO2 73 L (80-100) mm/Hg HCO3 31.7 H (21-28) mmol/L ABG pH 7.56 H (7.35-7.45) ABG Total CO2 32.4 H (22-28) mmol/L ABG O2 Saturation 95.2 (95-98) % ABG Base Excess 8.9 H (-2.0-3.0) mmol/L ABG Hemoglobin 19.0 H (11.7-17.4) g/dL ABG Carboxyhemoglobin 1.4 (0.5-1.5) % POC ABG HHb (Measured) 4.7 (0.0-5.0) % ABG Methemoglobin 1.3 (0.0-3.0) % [place] Test Pos A-a O2 Difference 382.0 mm/Hg Respiratory Index 5.2 Hgb O2 Saturation 92.7 L (95.0-98.0) % Vent Mode Prvc Mechanical Rate 16 FiO2 70.0 % Tidal Volume 400 PEEP 5 Sodium 137 (132-148) mmol/L Potassium 2.5 L* D (3.6-5.2) mmol/L Chloride 93 L (98-107) mmol/L Carbon Dioxide 29 (22-30) mmol/L Anion Gap 18 (10-20) BUN 22 H (7-17) mg/dL Creatinine 0.6 L (0.7-1.2) MG/DL Est GFR ( Amer) > 60 Est GFR (Non-Af Amer) > 60 Random Glucose 216 H (65-105) mg/dL Calcium 7.7 L (8.6-10.4) mg/dl Phosphorus 3.3 (2.5-4.5) mg/dL Magnesium 1.8 (1.6-2.3) mg/dL Total Bilirubin 0.8 (0.2-1.3) mg/dL AST 21 (14-36) U/L ALT 49 (9-52) U/L Alkaline Phosphatase 82 (38-126) U/L Total Protein 5.5 L (6.3-8.3) g/dL Albumin 2.9 L (3.5-5.0) g/dL Globulin 2.6 (2.2-3.9) gm/dL Albumin/Globulin Ratio 1.1 (1.0-2.1) Laboratory Results - last 24 hr 01/12/17 01/12/17 01/12/17 05:19 06:44 06:44 WBC 8.8 RBC 4.12 Hgb 12.7 Hct 37.7 MCV 91.6 MCH 30.8 MCHC 33.7 RDW 14.5 Plt Count 138 MPV 9.6 Neut % (Auto) 92.2 H Lymph % (Auto) 4.7 L [place] % (Auto) 3.0 Eos % (Auto) 0.0 Baso % (Auto) 0.1 Neut # 8.1 H Lymph # 0.4 L [place] # 0.3 Eos # 0.0 Baso # 0.0 Neutrophils % (Manual) 84 H Band Neutrophils % 6 H Lymphocytes % (Manual) 8 L Monocytes % (Manual) 2 Toxic Granulation Present Platelet Estimate Normal Large Platelets Present Anisocytosis (manual) Slight Puncture Site Rr pCO2 35 pO2 73 L HCO3 31.7 H ABG pH 7.56 H ABG Total CO2 32.4 H ABG O2 Saturation 95.2 ABG Base Excess 8.9 H ABG Hemoglobin 19.0 H ABG Carboxyhemoglobin 1.4 POC ABG HHb (Measured) 4.7 ABG Methemoglobin 1.3 [place] Test Pos A-a O2 Difference 382.0 Respiratory Index 5.2 Hgb O2 Saturation 92.7 L Vent Mode Prvc Mechanical Rate 16 FiO2 70.0 Tidal Volume 400 PEEP 5 Sodium 137 Potassium 2.5 L* D Chloride 93 L Carbon Dioxide 29 Anion Gap 18 BUN 22 H Creatinine 0.6 L Est GFR ( Amer) > 60 Est GFR (Non-Af Amer) > 60 Random Glucose 216 H Calcium 7.7 L Phosphorus 3.3 Magnesium 1.8 Total Bilirubin 0.8 AST 21 ALT 49 Alkaline Phosphatase 82 Total Protein 5.5 L Albumin 2.9 L Globulin 2.6 Albumin/Globulin Ratio 1.1
[2017-01-13] MEDS: Piperacill/Tazo 3.375gm in Dex 3.375 GM/50 ML BAG IVPB SCH ×3 (01:30→18:33)
[2017-01-13] MEDS: Albuterol-Ipratrop 3 mg / 0.5 (3 ml) UD INH SCH ×2 (01:31→08:18)
[2017-01-13 05:23] LABS: ABG ALLEN TEST POS; ABG MECHANICAL RATE 16; ARTERIAL BLOOD GAS MODE PRVC; ARTERIAL BLOOD HGB O2 SAT 96.7 % (95.0-98.0); ATERIAL BLOOD GAS PEEP 5; CARBOXYHEMOGLOBIN 1.2 % (0.5-1.5); DRAW SITE LRADIAL; HHB 1.2 % (0.0-5.0)
[2017-01-13 06:06] LABS: BASO % 0.1 % (0.0-2.0); HEMATOCRIT 28.5 % (34.0-47.0); LYMPH # 0.7 K/uL (1.0-4.3); LYMPH % 6.1 % (20.0-40.0); MEAN CELL VOLUME 91.6 fL (81.0-99.0); MEAN CORPUSCULAR HEMOGLOBIN 30.7 pg (27.0-31.0); MEAN CORPUSCULAR HGB CONC 33.6 g/dL (33.0-37.0); MEAN PLATELET VOLUME 8.9 fL (7.2-11.7); MONO # 0.3 K/uL (0.0-0.8); MONO % 2.7 % (0.0-10.0); PLATELET COUNT 143 K/uL (130-400); RED CELL DISTRIBUTION WIDTH 14.3 % (11.5-14.5); WHITE BLOOD COUNT 11.8 K/uL (4.8-10.8)
[2017-01-13 06:26] LABS: ALKALINE PHOSPHATASE 62 U/L (38-126); ALT/SGPT 52 U/L (9-52); AST/SGOT 25 U/L (14-36); BILIRUBIN,TOTAL 0.9 mg/dL (0.2-1.3); BLOOD UREA NITROGEN 28 mg/dL (7-17); CALCIUM 8.2 mg/dl (8.6-10.4); CARBON DIOXIDE 30 mmol/L (22-30); CHLORIDE 94 mmol/L (98-107); GFR AFRICAN-AMERICAN > 60; GLUCOSE,RANDOM 141 mg/dL (65-105); PHOSPHOROUS 3.7 mg/dL (2.5-4.5); POTASSIUM 3.9 mmol/L (3.6-5.2); SODIUM 135 mmol/L (132-148); TOTAL PROTEIN 4.9 g/dL (6.3-8.3)
--- NOTE | 2017-01-13 07:50 | CP.PCM.PN ---
Subjective - Date & Time of Evaluation Date of Evaluation: 01/12/17 Time of Evaluation: 07:00 - Subjective Subjective: Patient seen and evaluated Intubated and awake Physical Exam - Constitutional Appears: No Acute Distress, Chronically Ill - Head Exam Head Exam: ATRAUMATIC, NORMAL INSPECTION - Eye Exam Eye Exam: EOMI - ENT Exam ENT Exam: Mucous Membranes Moist - Respiratory Exam Respiratory Exam: Clear to Auscultation Bilateral, NORMAL BREATHING PATTERN. absent: Respiratory Distress - Cardiovascular Exam Cardiovascular Exam: REGULAR RHYTHM, +S1 - GI/Abdominal Exam GI & Abdominal Exam: Normal Bowel Sounds, Soft. absent: Tenderness - Extremities Exam Extremities exam: Positive for: normal inspection - Neurological Exam Neurological exam: Altered - Skin Skin Exam: Warm Objective - Vital Signs/Intake and Output Vital Signs (last 24 hours): Temp Pulse Resp BP Pulse Ox 98.7 F 78 28 H 121/61 99 01/13/17 04:00 01/13/17 07:01 01/13/17 07:01 01/13/17 07:01 01/13/17 07:01 Intake and Output: 01/13/17 01/13/17 06:59 18:59 Intake Total 1420 30 Output Total 335 30 Balance 1085 0 - Medications Medications: Current Medications Albuterol/Ipratropium (Duoneb 3 Mg/0.5 Mg (3 Ml) Ud) 3 ml INH RQ6 [facility] Last Admin: 01/13/17 01:31 Dose: 3 ml Furosemide (Lasix) 20 mg IVP DAILY [facility] Piperacillin Sod/Tazobactam Sod (Zosyn 3.375 Gm Iv Premix) 3.375 gm in 50 mls @ 100 mls/hr IVPB Q8H [facility] Last Admin: 01/13/17 01:30 Dose: 100 mls/hr Fluconazole (Diflucan Iv 200 Mg/100 Ml Ns) 100 mls @ 100 mls/hr IVPB DAILY [facility] Calcium Gluconate 2,000 mg/ (Sodium Chloride) 270 mls @ 125 mls/hr IVPB ONCE ONE Stop: 01/13/17 10:09 Lisinopril (Zestril) 5 mg PO DAILY [facility] Last Admin: 01/12/17 09:57 Dose: 5 mg Methylprednisolone (Solu-Medrol) 40 mg IVP Q12 [facility] Last Admin: 01/12/17 22:15 Dose: 40 mg Pantoprazole Sodium (Protonix Susp) 40 mg GT DAILY [facility] Last Admin: 01/12/17 10:18 Dose: 40 mg Potassium Chloride (Potassium Chloride Oral Soln) 20 meq NG BID [facility] Rosuvastatin Calcium (Crestor) 5 mg PO HS [facility] Last Admin: 01/12/17 22:15 Dose: 5 mg - Labs Labs: 01/13/17 06:02 01/13/17 06:02 PT 11.4 SECONDS (9.7-12.2) 01/07/17 10:28 INR 1.0 01/07/17 10:28 APTT 36 SECONDS (21-34) H 01/07/17 10:28 Assessment and Plan - Assessment and Plan (Free Text) Assessment: CHF -BNP [id number] -Echo: Normal EF, mild pulmonary hypertension -Continue Lasix 40mg IV -Monitor Daily weight and I&O HTN -Continue home Lisinopril 10mg H/o PE -Continue Lovenox 65mg SC Q12
[2017-01-13 08:17] LABS: LARGE PLATELETS PRESENT; NEUTROPHIL 87 % (50-75); TOTAL CELLS COUNTED 100
--- NOTE | 2017-01-13 08:18 | RAD ---
PROCEDURE: CHEST RADIOGRAPH, 1 VIEW HISTORY: vent COMPARISON: 01/12/2017 FINDINGS: LUNGS: Lines and tubes in stable position. Moderate loculated right pleural effusion. Confluent airspace opacification in the right mid to lower lung zone. Moderate venous congestion. Biapical pleural thickening with upper lobe granulomatous changes. PLEURA: As above. CARDIOVASCULAR: Cardiomegaly. Calcification at the aortic knob. OSSEOUS STRUCTURES: Degenerative changes in the spine and shoulders. VISUALIZED UPPER ABDOMEN: Suggestion of a partially imaged IVC filter in place. OTHER FINDINGS: None. IMPRESSION: Lines and tubes in stable position. Moderate loculated right pleural effusion. Confluent airspace opacification in the right mid to lower lung zone. Moderate venous congestion. Biapical pleural thickening with upper lobe granulomatous changes.
[2017-01-13] MEDS: Fluconazole IV 200mg/100 ml NS 100 ML IVPB SCH (09:29)
[2017-01-13] MEDS: Pantoprazole 40 mg Susp UD GT SCH (09:30)
[2017-01-13] MEDS: Potassium Chloride 20 mEq/15 ml LIQ UD NG SCH ×2 (09:30→18:32)
[2017-01-13] MEDS: MethylPREDNISolone 40 mg Vial IVP SCH ×2 (09:32→22:19)
[2017-01-13] MEDS ORDERED: Pantoprazole 40 mg Susp UD GT SCH (10:00)
[2017-01-13] MEDS ORDERED: Vancomycin 1 gm/NS 200 ml 1 GM/200 ML BAG IVPB STA (13:28)
--- NOTE | 2017-01-13 14:53 | CP.PCM.PN ---
Subjective - Date & Time of Evaluation Date of Evaluation: 01/13/17 Time of Evaluation: 13:35 - Subjective Subjective: Reviewed results of interventions since last night. Electrolytes close to or approaching normal. Pt comfortable and BP had gone up a little. Weaning from vent in progress, though slight metab alkalosis. Pt had also dropped hgb 3.1 pts. No obvious signs of bleeding except ET tube, though not massive. Condition still critical. Objective - Vital Signs/Intake and Output Vital Signs (last 24 hours): Temp Pulse Resp BP Pulse Ox 98.7 F 84 16 100/64 93 L 01/13/17 04:00 01/13/17 12:01 01/13/17 12:01 01/13/17 12:01 01/13/17 12:01 Intake and Output: 01/13/17 01/13/17 06:59 18:59 Intake Total 1420 530 Output Total 335 428 Balance 1085 102 - Medications Medications: Current Medications Albuterol Sulfate (Albuterol 0.083% Inhal Jeri (2.5 Mg/3 Ml) Ud) 2.5 mg INH RQ4 [facility] Furosemide (Lasix) 20 mg IVP DAILY [facility] Last Admin: 01/13/17 10:27 Dose: 20 mg Piperacillin Sod/Tazobactam Sod (Zosyn 3.375 Gm Iv Premix) 3.375 gm in 50 mls @ 100 mls/hr IVPB Q8H [facility] Last Admin: 01/13/17 10:36 Dose: 100 mls/hr Fluconazole (Diflucan Iv 200 Mg/100 Ml Ns) 100 mls @ 100 mls/hr IVPB DAILY [facility] Last Admin: 01/13/17 09:29 Dose: 100 mls/hr Vancomycin/Sodium Chloride (Vancocin) 1 gm in 200 mls @ 166 mls/hr IVPB STAT STA Stop: 01/13/17 14:40 Last Admin: 01/13/17 13:44 Dose: 166 mls/hr Lisinopril (Zestril) 5 mg PO DAILY [facility] Last Admin: 01/13/17 09:30 Dose: 5 mg Methylprednisolone (Solu-Medrol) 40 mg IVP Q12 [facility] Last Admin: 01/13/17 09:32 Dose: 40 mg Pantoprazole Sodium (Protonix Susp) 40 mg GT DAILY [facility] Last Admin: 01/13/17 09:30 Dose: 40 mg Potassium Chloride (Potassium Chloride Oral Soln) 20 meq NG BID [facility] Last Admin: 01/13/17 09:30 Dose: 20 meq - Labs Labs: 01/13/17 06:02 01/13/17 06:02 PT 11.4 SECONDS (9.7-12.2) 01/07/17 10:28 INR 1.0 01/07/17 10:28 APTT 36 SECONDS (21-34) H 01/07/17 10:28 - Constitutional Appears: No Acute Distress - Eye Exam Eye Exam: Normal appearance, PERRL Pupil Exam: NORMAL ACCOMODATION - ENT Exam ENT Exam: Normal Exam Additional comments: + ET tube - Neck Exam Neck Exam: Normal Inspection - Respiratory Exam Respiratory Exam: Accessory Muscle Use, Prolonged Expiratory Phase Additional comments: on AC - Cardiovascular Exam Cardiovascular Exam: REGULAR RHYTHM - GI/Abdominal Exam GI & Abdominal Exam: Diminished Bowel Sounds - Rectal Exam Rectal Exam: Deferred - Extremities Exam Extremities Exam: absent: Calf Tenderness, Full ROM, Joint Swelling, Normal Capillary Refill, Normal Inspection, Pedal Edema, Tenderness - Neurological Exam Additional comments: unable to assess, pt vented - Psychiatric Exam Psychiatric exam: Normal Affect, Normal Mood - Skin Skin Exam: Dry, Normal Color Assessment and Plan (1) Septic shock due to coagulase-negative staphylococcal infection Assessment & Plan: brought it to nursing attention to hold bp meds when below certain ranges. sharath monitor Status: Acute (2) Respiratory failure Assessment & Plan: improving, though FiO2 decreased too quickly this am and had to go back up 70= =<>40==60. Had dropped RR to 12 from 16 earlier. Repeat AB3 hrs post change of settings. Status: Acute (3) HCAP (healthcare-associated pneumonia) Assessment & Plan: ordered 1 dose of vancomycin since WBC increased again as well as neturophil percentage, bands decreasing though Status: Acute (4) Metabolic alkalosis Assessment & Plan: settings for vent changed to correct alkalosis Status: Acute (5) Physical debility Assessment & Plan: can't have PT at this time. Suggest ordering low air loss bed for decubiti prevention Status: Acute (6) Hypokalemia Assessment & Plan: improved Status: Acute (7) Hypocalcemia Assessment & Plan: stll on low side butnot critical Status: Acute (8) Multiple sclerosis Assessment & Plan: chronic and stable. Status: Chronic
--- NOTE | 2017-01-13 15:19 | CP.PCM.PN ---
Subjective - Date & Time of Evaluation Date of Evaluation: 01/13/17 Time of Evaluation: 10:00 - Subjective Subjective: awake aleert on vent nad weaning in progress Objective - Vital Signs/Intake and Output Vital Signs (last 24 hours): Temp Pulse Resp BP Pulse Ox 98.7 F 84 16 100/64 93 L 01/13/17 04:00 01/13/17 12:01 01/13/17 12:01 01/13/17 12:01 01/13/17 12:01 Intake and Output: 01/13/17 01/13/17 06:59 18:59 Intake Total 1420 530 Output Total 335 428 Balance 1085 102 - Medications Medications: Current Medications Albuterol Sulfate (Albuterol 0.083% Inhal Jeri (2.5 Mg/3 Ml) Ud) 2.5 mg INH RQ4 [facility] Furosemide (Lasix) 20 mg IVP DAILY [facility] Last Admin: 01/13/17 10:27 Dose: 20 mg Piperacillin Sod/Tazobactam Sod (Zosyn 3.375 Gm Iv Premix) 3.375 gm in 50 mls @ 100 mls/hr IVPB Q8H [facility] Last Admin: 01/13/17 10:36 Dose: 100 mls/hr Fluconazole (Diflucan Iv 200 Mg/100 Ml Ns) 100 mls @ 100 mls/hr IVPB DAILY [facility] Last Admin: 01/13/17 09:29 Dose: 100 mls/hr Lisinopril (Zestril) 5 mg PO DAILY [facility] Last Admin: 01/13/17 09:30 Dose: 5 mg Methylprednisolone (Solu-Medrol) 40 mg IVP Q12 [facility] Last Admin: 01/13/17 09:32 Dose: 40 mg Pantoprazole Sodium (Protonix Susp) 40 mg GT DAILY [facility] Last Admin: 01/13/17 09:30 Dose: 40 mg Potassium Chloride (Potassium Chloride Oral Soln) 20 meq NG BID [facility] Last Admin: 01/13/17 09:30 Dose: 20 meq - Labs Labs: 01/13/17 06:02 01/13/17 06:02 PT 11.4 SECONDS (9.7-12.2) 01/07/17 10:28 INR 1.0 01/07/17 10:28 APTT 36 SECONDS (21-34) H 01/07/17 10:28 - Constitutional Appears: Non-toxic, Chronically Ill - Head Exam Head Exam: NORMOCEPHALIC - Eye Exam Eye Exam: PERRL. absent: Scleral icterus - ENT Exam ENT Exam: Mucous Membranes Dry, Normal External Ear Exam - Neck Exam Neck Exam: absent: Lymphadenopathy - Respiratory Exam Respiratory Exam: Decreased Breath Sounds - Cardiovascular Exam Cardiovascular Exam: REGULAR RHYTHM - GI/Abdominal Exam GI & Abdominal Exam: Distended, Soft - Rectal Exam Rectal Exam: Deferred - Exam Exam: NORMAL INSPECTION - Extremities Exam Extremities Exam: absent: Pedal Edema - Back Exam Back Exam: absent: CVA tenderness (L), CVA tenderness (R), paraspinal tenderness Assessment and Plan (1) Sepsis Status: Acute (2) Altered mental status Status: Acute (3) Elevated BUN Status: Acute
[2017-01-13] MEDS: Albuterol 0.083% Inhal Sol (2.5 mg/3 mL) UD INH SCH ×2 (16:31→19:56)
[2017-01-13 16:52] LABS: ABG ALLEN TEST POS; ARTERIAL BLOOD GAS MODE A/C; ARTERIAL BLOOD HGB O2 SAT 92.6 % (95.0-98.0); ATERIAL BLOOD GAS PEEP 5; CARBOXYHEMOGLOBIN 1.3 % (0.5-1.5); DRAW SITE RRA; HHB 5.1 % (0.0-5.0)
[2017-01-13 17:14] LABS: ABG MECHANICAL RATE 12
[2017-01-13 17:47] LABS: BASO % 0.3 % (0.0-2.0); HEMATOCRIT 25.8 % (34.0-47.0); LYMPH # 0.6 K/uL (1.0-4.3); LYMPH % 4.6 % (20.0-40.0); MEAN CELL VOLUME 91.3 fL (81.0-99.0); MEAN CORPUSCULAR HEMOGLOBIN 30.9 pg (27.0-31.0); MEAN CORPUSCULAR HGB CONC 33.8 g/dL (33.0-37.0); MEAN PLATELET VOLUME 9.1 fL (7.2-11.7); MONO # 0.2 K/uL (0.0-0.8); MONO % 1.9 % (0.0-10.0); PLATELET COUNT 145 K/uL (130-400); RED CELL DISTRIBUTION WIDTH 14.3 % (11.5-14.5); WHITE BLOOD COUNT 12.5 K/uL (4.8-10.8)
[2017-01-13 17:55] LABS: CHLORIDE 97 mmol/L (98-107); SODIUM 137 mmol/L (132-148)
[2017-01-13 17:56] LABS: POTASSIUM 3.6 mmol/L (3.6-5.2)
[2017-01-13 17:58] LABS: ALKALINE PHOSPHATASE 60 U/L (38-126); ALT/SGPT 56 U/L (9-52); AST/SGOT 34 U/L (14-36); BILIRUBIN,TOTAL 0.8 mg/dL (0.2-1.3); BLOOD UREA NITROGEN 29 mg/dL (7-17); CALCIUM 8.4 mg/dl (8.6-10.4); CARBON DIOXIDE 27 mmol/L (22-30); GFR AFRICAN-AMERICAN > 60; GLUCOSE,RANDOM 216 mg/dL (65-105)
[2017-01-13 18:29] LABS: BASO % 0.2 % (0.0-2.0); HEMATOCRIT 25.2 % (34.0-47.0); LYMPH # 0.6 K/uL (1.0-4.3); LYMPH % 4.4 % (20.0-40.0); MEAN CELL VOLUME 91.3 fL (81.0-99.0); MEAN CORPUSCULAR HEMOGLOBIN 30.6 pg (27.0-31.0); MEAN CORPUSCULAR HGB CONC 33.5 g/dL (33.0-37.0); MEAN PLATELET VOLUME 8.9 fL (7.2-11.7); MONO # 0.3 K/uL (0.0-0.8); RED CELL DISTRIBUTION WIDTH 14.2 % (11.5-14.5); WHITE BLOOD COUNT 13.6 K/uL (4.8-10.8)
[2017-01-13 18:40] LABS: NEUTROPHIL 94 % (50-75); TOTAL CELLS COUNTED 100
[2017-01-13 18:45] LABS: CHLORIDE 95 mmol/L (98-107); POTASSIUM 3.4 mmol/L (3.6-5.2); SODIUM 137 mmol/L (132-148)
[2017-01-13 18:47] LABS: BILIRUBIN,TOTAL 0.8 mg/dL (0.2-1.3); GFR AFRICAN-AMERICAN > 60
[2017-01-13 18:48] LABS: ALKALINE PHOSPHATASE 63 U/L (38-126); ALT/SGPT 57 U/L (9-52); AST/SGOT 30 U/L (14-36); BLOOD UREA NITROGEN 29 mg/dL (7-17); CARBON DIOXIDE 25 mmol/L (22-30); GLUCOSE,RANDOM 208 mg/dL (65-105)
[2017-01-13 18:49] LABS: CALCIUM 8.3 mg/dl (8.6-10.4)
[2017-01-13] MEDS ORDERED: Midazolam 5 MG/5 ML VIAL IVP ONE (20:15)
[2017-01-13] MEDS ORDERED: Midazolam 2 MG/2 ML VIAL IVP ONE (20:30)
[2017-01-13 20:31] LABS: ABG ALLEN TEST POS; ABG MECHANICAL RATE 12; ARTERIAL BLOOD GAS MODE A/C; ATERIAL BLOOD GAS PEEP 5; DRAW SITE RRA
--- NOTE | 2017-01-13 21:05 | CP.PCM.PN ---
Subjective - Date & Time of Evaluation Date of Evaluation: 01/13/17 Time of Evaluation: 07:10 - Subjective Subjective: Patient seen and evaluated Intubated but awake Not in distress Physical Exam - Constitutional Appears: No Acute Distress, Chronically Ill - Head Exam Head Exam: ATRAUMATIC, NORMAL INSPECTION - Eye Exam Eye Exam: EOMI - ENT Exam ENT Exam: Mucous Membranes Moist - Respiratory Exam Respiratory Exam: Clear to Auscultation Bilateral, NORMAL BREATHING PATTERN. absent: Respiratory Distress - Cardiovascular Exam Cardiovascular Exam: REGULAR RHYTHM, +S1 - GI/Abdominal Exam GI & Abdominal Exam: Normal Bowel Sounds, Soft. absent: Tenderness - Extremities Exam Extremities exam: Positive for: normal inspection - Neurological Exam Neurological exam: Altered - Skin Skin Exam: Warm Objective - Vital Signs/Intake and Output Vital Signs (last 24 hours): Temp Pulse Resp BP Pulse Ox 98.1 F 98 H 13 91/47 L 100 01/13/17 20:00 01/13/17 20:11 01/13/17 20:11 01/13/17 20:11 01/13/17 20:11 Intake and Output: 01/13/17 01/14/17 18:59 06:59 Intake Total 960 60 Output Total 920 100 Balance 40 -40 - Medications Medications: Current Medications Albuterol Sulfate (Albuterol 0.083% Inhal Jeri (2.5 Mg/3 Ml) Ud) 2.5 mg INH RQ4 [facility] Last Admin: 01/13/17 19:56 Dose: 2.5 mg Piperacillin Sod/Tazobactam Sod (Zosyn 3.375 Gm Iv Premix) 3.375 gm in 50 mls @ 100 mls/hr IVPB Q8H [facility] Last Admin: 01/13/17 18:33 Dose: 100 mls/hr Fluconazole (Diflucan Iv 200 Mg/100 Ml Ns) 100 mls @ 100 mls/hr IVPB DAILY [facility] Last Admin: 01/13/17 09:29 Dose: 100 mls/hr Lisinopril (Zestril) 5 mg PO DAILY [facility] Last Admin: 01/13/17 09:30 Dose: 5 mg Methylprednisolone (Solu-Medrol) 40 mg IVP Q12 [facility] Last Admin: 01/13/17 09:32 Dose: 40 mg Pantoprazole Sodium (Protonix Susp) 40 mg GT DAILY [facility] Last Admin: 01/13/17 09:30 Dose: 40 mg Potassium Chloride (Potassium Chloride Oral Soln) 20 meq NG BID [facility] Last Admin: 01/13/17 18:32 Dose: 20 meq - Labs Labs: 01/13/17 18:26 01/13/17 18:26 PT 10.6 SECONDS (9.7-12.2) 01/13/17 18:26 INR 1.0 01/13/17 18:26 APTT 24 SECONDS (21-34) 01/13/17 18:26 Assessment and Plan - Assessment and Plan (Free Text) Assessment: CHF -BNP [id number] -Echo: Normal EF, mild pulmonary hypertension -Continue Lasix 40mg IV -Monitor Daily weight and I&O HTN -Continue home Lisinopril 10mg H/o PE -Continue Lovenox 65mg SC Q12
[2017-01-14] MEDS: Albuterol 0.083% Inhal Sol (2.5 mg/3 mL) UD INH SCH ×6 (00:27→20:22)
[2017-01-14] MEDS: Piperacill/Tazo 3.375gm in Dex 3.375 GM/50 ML BAG IVPB SCH ×3 (02:30→18:05)
[2017-01-14 05:34] LABS: ABG ALLEN TEST POS; ABG MECHANICAL RATE 12; ARTERIAL BLOOD GAS MODE PRVC; ATERIAL BLOOD GAS PEEP 5; CARBOXYHEMOGLOBIN 1.2 % (0.5-1.5); METHEMOGLOBIN 0.8 % (0.0-3.0)
[2017-01-14 06:44] LABS: BASO % 0.1 % (0.0-2.0); HEMATOCRIT 24.2 % (34.0-47.0); LYMPH # 0.4 K/uL (1.0-4.3); LYMPH % 2.8 % (20.0-40.0); MEAN CELL VOLUME 93.9 fL (81.0-99.0); MEAN CORPUSCULAR HEMOGLOBIN 31.4 pg (27.0-31.0); MEAN CORPUSCULAR HGB CONC 33.4 g/dL (33.0-37.0); MEAN PLATELET VOLUME 9.6 fL (7.2-11.7); MONO # 0.3 K/uL (0.0-0.8); MONO % 2.6 % (0.0-10.0); NRBC % 0.1 % (0.0-2.0); PLATELET COUNT 145 K/uL (130-400); RED CELL DISTRIBUTION WIDTH 14.4 % (11.5-14.5)
[2017-01-14 07:34] LABS: CHLORIDE 101 mmol/L (98-107)
[2017-01-14 07:35] LABS: POTASSIUM 3.3 mmol/L (3.6-5.2); SODIUM 139 mmol/L (132-148)
[2017-01-14 07:37] LABS: AST/SGOT 32 U/L (14-36); BILIRUBIN,TOTAL 0.8 mg/dL (0.2-1.3); CARBON DIOXIDE 27 mmol/L (22-30); GFR AFRICAN-AMERICAN > 60
[2017-01-14 07:38] LABS: ALKALINE PHOSPHATASE 55 U/L (38-126); ALT/SGPT 58 U/L (9-52); BLOOD UREA NITROGEN 29 mg/dL (7-17); GLUCOSE,RANDOM 198 mg/dL (65-105); MAGNESIUM 2.1 mg/dL (1.6-2.3); PHOSPHOROUS 5.1 mg/dL (2.5-4.5)
[2017-01-14 08:18] LABS: NEUTROPHIL 94 % (50-75); TOTAL CELLS COUNTED 100
--- NOTE | 2017-01-14 09:52 | RAD ---
PROCEDURE: CHEST RADIOGRAPH, 1 VIEW HISTORY: respiratory failure COMPARISON: 01/13/2017 FINDINGS: LUNGS: Lines and tubes in stable position. Moderate right pleural effusion. Confluent airspace consolidation within the right mid to lower lung zone. Prominent diffuse increased interstitial lung markings. Biapical pleural thickening with upper lobe granulomatous changes. PLEURA: As above. CARDIOVASCULAR: Calcification at the aortic knob. Tortuous ectatic aorta. OSSEOUS STRUCTURES: Degenerative changes in the spine and shoulders. VISUALIZED UPPER ABDOMEN: Normal. OTHER FINDINGS: None. IMPRESSION: Lines and tubes in stable position. Moderate right pleural effusion. Confluent airspace consolidation within the right mid to lower lung zone. Prominent diffuse increased interstitial lung markings. Biapical pleural thickening with upper lobe granulomatous changes.
[2017-01-14] MEDS: MethylPREDNISolone 40 mg Vial IVP SCH ×2 (09:58→23:10)
[2017-01-14] MEDS: Pantoprazole 40 mg Susp UD GT SCH (09:58)
[2017-01-14] MEDS: Potassium Chloride 20 mEq/15 ml LIQ UD NG SCH ×2 (09:58→18:05)
[2017-01-14] MEDS: Fluconazole IV 200mg/100 ml NS 100 ML IVPB SCH (09:58)
--- NOTE | 2017-01-14 13:45 | CP.CCUPN ---
CCU Subjective - Physician Review Subjective (Free Text): Patient was seen and examined at bedside. During this encounter, patient was not alert, awake or responsive to verbal stimuli. Patient is currently intubated. Unable to evaluate ROS during the encounter. CCU Objective - Vital Signs / Intake & Output Vital Signs (Last 4 hours): Vital Signs Temp Pulse Resp BP Pulse Ox 01/14/17 12:27 77 25 H 112/61 94 L 01/14/17 12:12 120/60 01/14/17 12:11 80 20 92 L 01/14/17 12:00 98 F 81 25 H 92 L 01/14/17 11:00 80 28 H 96 01/14/17 10:27 69 20 112/54 L 98 01/14/17 09:53 83 25 H 113/54 L 100 Intake and Output (Last 8hrs): Intake & Output 01/13/17 01/14/17 01/14/17 22:59 06:59 14:59 Intake Total 290 290 560 Output Total 480 400 235 Balance -190 -110 325 Weight 135 lb Intake: Intake, IV Amount 50 50 250 Right Medial Port 50 50 Internal Jugular Right Proximal Port 250 Internal Jugular Tube Feeding 240 240 210 Other 100 Output: Urine 480 400 235 Urethral ([place]) 480 400 235 - Physical Exam Head: Positive for: Atraumatic, Normocephalic Pupils: Positive for: PERRL Mouth: Positive for: Moist Mucous Membranes, Other (w/ dentures) Neck: Negative for: JVD, Lymphadenopathy Respiratory/Chest: Positive for: Wheezes, Other (on ventilator). Negative for: Good Air Exchange Cardiovascular: Positive for: Regular Rate and Rhythm, Normal S1, S2. Negative for: Murmurs, Tachycardic Abdomen: Positive for: Normal Bowel Sounds. Negative for: Distention Upper Extremity: Positive for: NORMAL PULSES. Negative for: Edema Lower Extremity: Positive for: NORMAL PULSES. Negative for: Edema Neurological: Negative for: Speech Normal Skin: Positive for: Warm, Normal Color Psychiatric: Positive for: Alert - Medications Active Medications: Active Medications Generic Name Dose Route Start Last Admin Trade Name Freq PRN Reason Stop Dose Admin Albuterol Sulfate 2.5 mg 01/13/17 16:00 01/14/17 11:13 Albuterol 0.083% Inhal Jeri (2.5 Mg/3 Ml) Ud INH 2.5 mg RQ4 RAUL Administration Piperacillin Sod/Tazobactam Sod 3.375 gm in 50 mls @ 100 mls/hr 01/08/17 10: 30 01/14/17 11:07 Zosyn 3.375 Gm Iv Premix IVPB 100 mls/hr Q8H RAUL Administration Fluconazole 100 mls @ 100 mls/hr 01/13/17 10:00 01/14/17 09:58 Diflucan Iv 200 Mg/100 Ml Ns IVPB 100 mls/hr DAILY RAUL Administration Lisinopril 5 mg 01/09/17 10:00 01/14/17 09:58 Zestril PO 5 mg DAILY RAUL Administration Methylprednisolone 40 mg 01/12/17 10:00 01/14/17 09:58 Solu-Medrol IVP 40 mg Q12 RAUL Administration Pantoprazole Sodium 40 mg 01/12/17 10:15 01/14/17 09:58 Protonix Susp GT 40 mg DAILY RAUL Administration Potassium Chloride 20 meq 01/13/17 10:00 01/14/17 09:58 Potassium Chloride Oral Soln NG 20 meq BID RAUL Administration - Patient Studies Lab Studies: Lab Studies 01/14/17 01/14/17 01/14/17 Range/Units 06:36 06:36 05:20 WBC 13.0 H (4.8-10.8) K/uL RBC 2.57 L (3.80-5.20) Mil/uL Hgb 8.1 L (11.0-16.0) g/dL Hct 24.2 L (34.0-47.0) % MCV 93.9 D (81.0-99.0) fL MCH 31.4 H (27.0-31.0) pg MCHC 33.4 (33.0-37.0) g/dL RDW 14.4 (11.5-14.5) % Plt Count 145 (130-400) K/uL MPV 9.6 (7.2-11.7) fL Neut % (Auto) 94.5 H (50.0-75.0) % Lymph % (Auto) 2.8 L (20.0-40.0) % Mcdonald % (Auto) 2.6 (0.0-10.0) % Eos % (Auto) 0.0 (0.0-4.0) % Baso % (Auto) 0.1 (0.0-2.0) % Neut # 12.3 H (1.8-7.0) K/uL Lymph # 0.4 L (1.0-4.3) K/uL Mcdonald # 0.3 (0.0-0.8) K/uL Eos # 0.0 (0.0-0.7) K/uL Baso # 0.0 (0.0-0.2) K/uL Neutrophils % (Manual) 94 H (50-75) % Band Neutrophils % 2 (0-2) % Lymphocytes % (Manual) 3 L (20-40) % Monocytes % (Manual) 1 (0-10) % Platelet Estimate Normal (NORMAL) Hypochromasia (manual) Slight PT (9.7-12.2) SECONDS INR APTT (21-34) SECONDS Puncture Site Rrdial pCO2 38 (35-45) mm/Hg pO2 103 H (80-100) mm/Hg HCO3 29.1 H (21-28) mmol/L ABG pH 7.49 H (7.35-7.45) ABG Total CO2 30.2 H (22-28) mmol/L ABG O2 Saturation 99.0 H (95-98) % ABG Base Excess 5.3 H (-2.0-3.0) mmol/L ABG Hemoglobin 8.5 L (11.7-17.4) g/dL ABG Carboxyhemoglobin 1.2 (0.5-1.5) % POC ABG HHb (Measured) 1.0 (0.0-5.0) % ABG Methemoglobin 0.8 (0.0-3.0) % Jose Maria Test Pos ABG Potassium (3.6-5.2) mmol/L A-a O2 Difference 206.0 mm/Hg Respiratory Index 2.0 Hgb O2 Saturation 97.0 (95.0-98.0) % Glucose (65-105) mg/dl Lactate (0.7-2.1) mmol/L Vent Mode Prvc Mechanical Rate 12 FiO2 50.0 % Tidal Volume 400 PEEP 5 Crit Value Called To Crit Value Called By Crit Value Read Back Blood Gas Notified Time Sodium 139 (132-148) mmol/L Potassium 3.3 L (3.6-5.2) mmol/L Chloride 101 (98-107) mmol/L Carbon Dioxide 27 (22-30) mmol/L Anion Gap 14 (10-20) BUN 29 H (7-17) mg/dL Creatinine 0.8 (0.7-1.2) MG/DL Est GFR ( Amer) > 60 Est GFR (Non-Af Amer) > 60 Random Glucose 198 H (65-105) mg/dL Lactic Acid (0.7-2.1) mmol/L Calcium 8.0 L (8.6-10.4) mg/dl Phosphorus 5.1 H (2.5-4.5) mg/dL Magnesium 2.1 (1.6-2.3) mg/dL Total Bilirubin 0.8 (0.2-1.3) mg/dL AST 32 (14-36) U/L ALT 58 H (9-52) U/L Alkaline Phosphatase 55 (38-126) U/L Total Protein 5.0 L (6.3-8.3) g/dL Albumin 2.5 L (3.5-5.0) g/dL Globulin 2.5 (2.2-3.9) gm/dL Albumin/Globulin Ratio 1.0 (1.0-2.1) Arterial Blood Potassium (3.6-5.2) mmol/L C. difficile Ag & Toxin (NEGATIVE) 01/13/17 01/13/17 01/13/17 Range/Units 20:15 18:26 18:26 WBC (4.8-10.8) K/uL RBC (3.80-5.20) Mil/uL Hgb (11.0-16.0) g/dL Hct (34.0-47.0) % MCV (81.0-99.0) fL MCH (27.0-31.0) pg MCHC (33.0-37.0) g/dL RDW (11.5-14.5) % Plt Count (130-400) K/uL MPV (7.2-11.7) fL Neut % (Auto) (50.0-75.0) % Lymph % (Auto) (20.0-40.0) % Mcdonald % (Auto) (0.0-10.0) % Eos % (Auto) (0.0-4.0) % Baso % (Auto) (0.0-2.0) % Neut # (1.8-7.0) K/uL Lymph # (1.0-4.3) K/uL Mcdonald # (0.0-0.8) K/uL Eos # (0.0-0.7) K/uL Baso # (0.0-0.2) K/uL Neutrophils % (Manual) (50-75) % Band Neutrophils % (0-2) % Lymphocytes % (Manual) (20-40) % Monocytes % (Manual) (0-10) % Platelet Estimate (NORMAL) Hypochromasia (manual) PT 10.6 (9.7-12.2) SECONDS INR 1.0 APTT 24 (21-34) SECONDS Puncture Site Rra pCO2 32 L (35-45) mm/Hg pO2 185 H (80-100) mm/Hg HCO3 29.0 H (21-28) mmol/L ABG pH 7.54 H (7.35-7.45) ABG Total CO2 28.4 H (22-28) mmol/L ABG O2 Saturation 99.0 H (95-98) % ABG Base Excess 5.2 H (-2.0-3.0) mmol/L ABG Hemoglobin (11.7-17.4) g/dL ABG Carboxyhemoglobin (0.5-1.5) % POC ABG HHb (Measured) (0.0-5.0) % ABG Methemoglobin (0.0-3.0) % Jose Maria Test Pos ABG Potassium 3.4 L (3.6-5.2) mmol/L A-a O2 Difference 203.0 mm/Hg Respiratory Index 1.1 Hgb O2 Saturation (95.0-98.0) % Glucose 233 H (65-105) mg/dl Lactate 3.6 H (0.7-2.1) mmol/L Vent Mode A/c Mechanical Rate 12 FiO2 60.0 % Tidal Volume 450 PEEP 5 Crit Value Called To Crit Value Called By Crit Value Read Back Blood Gas Notified Time Sodium 141.0 137 (132-148) mmol/L Potassium 3.4 L (3.6-5.2) mmol/L Chloride 109.0 H 95 L (98-107) mmol/L Carbon Dioxide 25 (22-30) mmol/L Anion Gap 20 (10-20) BUN 29 H (7-17) mg/dL Creatinine 0.6 L (0.7-1.2) MG/DL Est GFR ( Amer) > 60 Est GFR (Non-Af Amer) > 60 Random Glucose 208 H (65-105) mg/dL Lactic Acid (0.7-2.1) mmol/L Calcium 8.3 L (8.6-10.4) mg/dl Phosphorus (2.5-4.5) mg/dL Magnesium (1.6-2.3) mg/dL Total Bilirubin 0.8 (0.2-1.3) mg/dL AST 30 (14-36) U/L ALT 57 H (9-52) U/L Alkaline Phosphatase 63 (38-126) U/L Total Protein 5.0 L (6.3-8.3) g/dL Albumin 2.5 L (3.5-5.0) g/dL Globulin 2.5 (2.2-3.9) gm/dL Albumin/Globulin Ratio 1.0 (1.0-2.1) Arterial Blood Potassium 3.4 L (3.6-5.2) mmol/L C. difficile Ag & Toxin (NEGATIVE) 01/13/17 01/13/17 01/13/17 Range/Units 18:26 18:26 17:43 WBC 13.6 H (4.8-10.8) K/uL RBC 2.76 L (3.80-5.20) Mil/uL Hgb 8.4 L (11.0-16.0) g/dL Hct 25.2 L (34.0-47.0) % MCV 91.3 (81.0-99.0) fL MCH 30.6 (27.0-31.0) pg MCHC 33.5 (33.0-37.0) g/dL RDW 14.2 (11.5-14.5) % Plt Count 140 (130-400) K/uL MPV 8.9 (7.2-11.7) fL Neut % (Auto) 93.4 H (50.0-75.0) % Lymph % (Auto) 4.4 L (20.0-40.0) % Mcdonald % (Auto) 2.0 (0.0-10.0) % Eos % (Auto) 0.0 (0.0-4.0) % Baso % (Auto) 0.2 (0.0-2.0) % Neut # 12.7 H (1.8-7.0) K/uL Lymph # 0.6 L (1.0-4.3) K/uL Mcdonald # 0.3 (0.0-0.8) K/uL Eos # 0.0 (0.0-0.7) K/uL Baso # 0.0 (0.0-0.2) K/uL Neutrophils % (Manual) (50-75) % Band Neutrophils % (0-2) % Lymphocytes % (Manual) (20-40) % Monocytes % (Manual) (0-10) % Platelet Estimate (NORMAL) Hypochromasia (manual) PT (9.7-12.2) SECONDS INR APTT (21-34) SECONDS Puncture Site pCO2 (35-45) mm/Hg pO2 (80-100) mm/Hg HCO3 (21-28) mmol/L ABG pH (7.35-7.45) ABG Total CO2 (22-28) mmol/L ABG O2 Saturation (95-98) % ABG Base Excess (-2.0-3.0) mmol/L ABG Hemoglobin (11.7-17.4) g/dL ABG Carboxyhemoglobin (0.5-1.5) % POC ABG HHb (Measured) (0.0-5.0) % ABG Methemoglobin (0.0-3.0) % Jose Maria Test ABG Potassium (3.6-5.2) mmol/L A-a O2 Difference mm/Hg Respiratory Index Hgb O2 Saturation (95.0-98.0) % Glucose (65-105) mg/dl Lactate (0.7-2.1) mmol/L Vent Mode Mechanical Rate FiO2 % Tidal Volume PEEP Crit Value Called To Crit Value Called By Crit Value Read Back Blood Gas Notified Time Sodium (132-148) mmol/L Potassium (3.6-5.2) mmol/L Chloride (98-107) mmol/L Carbon Dioxide (22-30) mmol/L Anion Gap (10-20) BUN (7-17) mg/dL Creatinine (0.7-1.2) MG/DL Est GFR ( Amer) Est GFR (Non-Af Amer) Random Glucose (65-105) mg/dL Lactic Acid 3.2 H 3.0 H (0.7-2.1) mmol/L Calcium (8.6-10.4) mg/dl Phosphorus (2.5-4.5) mg/dL Magnesium (1.6-2.3) mg/dL Total Bilirubin (0.2-1.3) mg/dL AST (14-36) U/L ALT (9-52) U/L Alkaline Phosphatase (38-126) U/L Total Protein (6.3-8.3) g/dL Albumin (3.5-5.0) g/dL Globulin (2.2-3.9) gm/dL Albumin/Globulin Ratio (1.0-2.1) Arterial Blood Potassium (3.6-5.2) mmol/L C. difficile Ag & Toxin (NEGATIVE) 01/13/17 01/13/17 01/13/17 Range/Units 17:43 17:43 17:43 WBC 12.5 H (4.8-10.8) K/uL RBC 2.83 L (3.80-5.20) Mil/uL Hgb 8.7 L (11.0-16.0) g/dL Hct 25.8 L (34.0-47.0) % MCV 91.3 (81.0-99.0) fL MCH 30.9 (27.0-31.0) pg MCHC 33.8 (33.0-37.0) g/dL RDW 14.3 (11.5-14.5) % Plt Count 145 (130-400) K/uL MPV 9.1 (7.2-11.7) fL Neut % (Auto) 93.2 H (50.0-75.0) % Lymph % (Auto) 4.6 L (20.0-40.0) % Mcdonald % (Auto) 1.9 (0.0-10.0) % Eos % (Auto) 0.0 (0.0-4.0) % Baso % (Auto) 0.3 (0.0-2.0) % Neut # 11.7 H (1.8-7.0) K/uL Lymph # 0.6 L (1.0-4.3) K/uL Mcdonald # 0.2 (0.0-0.8) K/uL Eos # 0.0 (0.0-0.7) K/uL Baso # 0.0 (0.0-0.2) K/uL Neutrophils % (Manual) 94 H (50-75) % Band Neutrophils % 1 (0-2) % Lymphocytes % (Manual) 4 L (20-40) % Monocytes % (Manual) 1 (0-10) % Platelet Estimate Normal (NORMAL) Hypochromasia (manual) PT 10.7 (9.7-12.2) SECONDS INR 1.0 APTT 26 (21-34) SECONDS Puncture Site pCO2 (35-45) mm/Hg pO2 (80-100) mm/Hg HCO3 (21-28) mmol/L ABG pH (7.35-7.45) ABG Total CO2 (22-28) mmol/L ABG O2 Saturation (95-98) % ABG Base Excess (-2.0-3.0) mmol/L ABG Hemoglobin (11.7-17.4) g/dL ABG Carboxyhemoglobin (0.5-1.5) % POC ABG HHb (Measured) (0.0-5.0) % ABG Methemoglobin (0.0-3.0) % Jose Maria Test ABG Potassium (3.6-5.2) mmol/L A-a O2 Difference mm/Hg Respiratory Index Hgb O2 Saturation (95.0-98.0) % Glucose (65-105) mg/dl Lactate (0.7-2.1) mmol/L Vent Mode Mechanical Rate FiO2 % Tidal Volume PEEP Crit Value Called To Crit Value Called By Crit Value Read Back Blood Gas Notified Time Sodium 137 (132-148) mmol/L Potassium 3.6 (3.6-5.2) mmol/L Chloride 97 L (98-107) mmol/L Carbon Dioxide 27 (22-30) mmol/L Anion Gap 17 (10-20) BUN 29 H (7-17) mg/dL Creatinine 0.6 L (0.7-1.2) MG/DL Est GFR ( Amer) > 60 Est GFR (Non-Af Amer) > 60 Random Glucose 216 H (65-105) mg/dL Lactic Acid (0.7-2.1) mmol/L Calcium 8.4 L (8.6-10.4) mg/dl Phosphorus (2.5-4.5) mg/dL Magnesium (1.6-2.3) mg/dL Total Bilirubin 0.8 (0.2-1.3) mg/dL AST 34 (14-36) U/L ALT 56 H (9-52) U/L Alkaline Phosphatase 60 (38-126) U/L Total Protein 5.0 L (6.3-8.3) g/dL Albumin 2.5 L (3.5-5.0) g/dL Globulin 2.5 (2.2-3.9) gm/dL Albumin/Globulin Ratio 1.0 (1.0-2.1) Arterial Blood Potassium (3.6-5.2) mmol/L C. difficile Ag & Toxin (NEGATIVE) 01/13/17 01/13/17 Range/Units 16:45 14:30 WBC (4.8-10.8) K/uL RBC (3.80-5.20) Mil/uL Hgb (11.0-16.0) g/dL Hct (34.0-47.0) % MCV (81.0-99.0) fL MCH (27.0-31.0) pg MCHC (33.0-37.0) g/dL RDW (11.5-14.5) % Plt Count (130-400) K/uL MPV (7.2-11.7) fL Neut % (Auto) (50.0-75.0) % Lymph % (Auto) (20.0-40.0) % Mcdonald % (Auto) (0.0-10.0) % Eos % (Auto) (0.0-4.0) % Baso % (Auto) (0.0-2.0) % Neut # (1.8-7.0) K/uL Lymph # (1.0-4.3) K/uL Mcdonald # (0.0-0.8) K/uL Eos # (0.0-0.7) K/uL Baso # (0.0-0.2) K/uL Neutrophils % (Manual) (50-75) % Band Neutrophils % (0-2) % Lymphocytes % (Manual) (20-40) % Monocytes % (Manual) (0-10) % Platelet Estimate (NORMAL) Hypochromasia (manual) PT (9.7-12.2) SECONDS INR APTT (21-34) SECONDS Puncture Site Rra pCO2 25 L (35-45) mm/Hg pO2 57 L (80-100) mm/Hg HCO3 32.0 H (21-28) mmol/L ABG pH 7.68 H* (7.35-7.45) ABG Total CO2 30.3 H (22-28) mmol/L ABG O2 Saturation 94.8 L (95-98) % ABG Base Excess 9.1 H (-2.0-3.0) mmol/L ABG Hemoglobin 8.6 L (11.7-17.4) g/dL ABG Carboxyhemoglobin 1.3 (0.5-1.5) % POC ABG HHb (Measured) 5.1 H (0.0-5.0) % ABG Methemoglobin 1.0 (0.0-3.0) % Jose Maria Test Pos ABG Potassium (3.6-5.2) mmol/L A-a O2 Difference 197.0 mm/Hg Respiratory Index 3.5 Hgb O2 Saturation 92.6 L (95.0-98.0) % Glucose (65-105) mg/dl Lactate (0.7-2.1) mmol/L Vent Mode A/c Mechanical Rate 12 FiO2 40.0 % Tidal Volume 450 PEEP 5 Crit Value Called To Dr harpreet kincaid Crit Value Called By Jessica philippe Crit Value Read Back Y Blood Gas Notified Time 1655 Sodium (132-148) mmol/L Potassium (3.6-5.2) mmol/L Chloride (98-107) mmol/L Carbon Dioxide (22-30) mmol/L Anion Gap (10-20) BUN (7-17) mg/dL Creatinine (0.7-1.2) MG/DL Est GFR ( Amer) Est GFR (Non-Af Amer) Random Glucose (65-105) mg/dL Lactic Acid (0.7-2.1) mmol/L Calcium (8.6-10.4) mg/dl Phosphorus (2.5-4.5) mg/dL Magnesium (1.6-2.3) mg/dL Total Bilirubin (0.2-1.3) mg/dL AST (14-36) U/L ALT (9-52) U/L Alkaline Phosphatase (38-126) U/L Total Protein (6.3-8.3) g/dL Albumin (3.5-5.0) g/dL Globulin (2.2-3.9) gm/dL Albumin/Globulin Ratio (1.0-2.1) Arterial Blood Potassium (3.6-5.2) mmol/L C. difficile Ag & Toxin Negative (NEGATIVE) Laboratory Results - last 24 hr 01/13/17 01/13/17 01/13/17 14:30 16:45 17:43 WBC 12.5 H RBC 2.83 L Hgb 8.7 L Hct 25.8 L MCV 91.3 MCH 30.9 MCHC 33.8 RDW 14.3 Plt Count 145 MPV 9.1 Neut % (Auto) 93.2 H Lymph % (Auto) 4.6 L Mcdonald % (Auto) 1.9 Eos % (Auto) 0.0 Baso % (Auto) 0.3 Neut # 11.7 H Lymph # 0.6 L Mcdonald # 0.2 Eos # 0.0 Baso # 0.0 Neutrophils % (Manual) 94 H Band Neutrophils % 1 Lymphocytes % (Manual) 4 L Monocytes % (Manual) 1 Platelet Estimate Normal Hypochromasia (manual) PT INR APTT Puncture Site Rra pCO2 25 L pO2 57 L HCO3 32.0 H ABG pH 7.68 H* ABG Total CO2 30.3 H ABG O2 Saturation 94.8 L ABG Base Excess 9.1 H ABG Hemoglobin 8.6 L ABG Carboxyhemoglobin 1.3 POC ABG HHb (Measured) 5.1 H ABG Methemoglobin 1.0 Jose Maria Test Pos ABG Potassium A-a O2 Difference 197.0 Respiratory Index 3.5 Hgb O2 Saturation 92.6 L Glucose Lactate Vent Mode A/c Mechanical Rate 12 FiO2 40.0 Tidal Volume 450 PEEP 5 Crit Value Called To Dr harpreet kincaid Crit Value Called By Jessica philippe Crit Value Read Back Y Blood Gas Notified Time 1655 Sodium Potassium Chloride Carbon Dioxide Anion Gap BUN Creatinine Est GFR ( Amer) Est GFR (Non-Af Amer) Random Glucose Lactic Acid Calcium Phosphorus Magnesium Total Bilirubin AST ALT Alkaline Phosphatase Total Protein Albumin Globulin Albumin/Globulin Ratio Arterial Blood Potassium C. difficile Ag & Toxin Negative 01/13/17 01/13/17 01/13/17 17:43 17:43 17:43 WBC RBC Hgb Hct MCV MCH MCHC RDW Plt Count MPV Neut % (Auto) Lymph % (Auto) Mcdonald % (Auto) Eos % (Auto) Baso % (Auto) Neut # Lymph # Mcdonald # Eos # Baso # Neutrophils % (Manual) Band Neutrophils % Lymphocytes % (Manual) Monocytes % (Manual) Platelet Estimate Hypochromasia (manual) PT 10.7 INR 1.0 APTT 26 Puncture Site pCO2 pO2 HCO3 ABG pH ABG Total CO2 ABG O2 Saturation ABG Base Excess ABG Hemoglobin ABG Carboxyhemoglobin POC ABG HHb (Measured) ABG Methemoglobin Jose Maria Test ABG Potassium A-a O2 Difference Respiratory Index Hgb O2 Saturation Glucose Lactate Vent Mode Mechanical Rate FiO2 Tidal Volume PEEP Crit Value Called To Crit Value Called By Crit Value Read Back Blood Gas Notified Time Sodium 137 Potassium 3.6 Chloride 97 L Carbon Dioxide 27 Anion Gap 17 BUN 29 H Creatinine 0.6 L Est GFR ( Amer) > 60 Est GFR (Non-Af Amer) > 60 Random Glucose 216 H Lactic Acid 3.0 H Calcium 8.4 L Phosphorus Magnesium Total Bilirubin 0.8 AST 34 ALT 56 H Alkaline Phosphatase 60 Total Protein 5.0 L Albumin 2.5 L Globulin 2.5 Albumin/Globulin Ratio 1.0 Arterial Blood Potassium C. difficile Ag & Toxin 01/13/17 01/13/17 01/13/17 18:26 18:26 18:26 WBC 13.6 H RBC 2.76 L Hgb 8.4 L Hct 25.2 L MCV 91.3 MCH 30.6 MCHC 33.5 RDW 14.2 Plt Count 140 MPV 8.9 Neut % (Auto) 93.4 H Lymph % (Auto) 4.4 L Mcdonald % (Auto) 2.0 Eos % (Auto) 0.0 Baso % (Auto) 0.2 Neut # 12.7 H Lymph # 0.6 L Mcdonald # 0.3 Eos # 0.0 Baso # 0.0 Neutrophils % (Manual) Band Neutrophils % Lymphocytes % (Manual) Monocytes % (Manual) Platelet Estimate Hypochromasia (manual) PT 10.6 INR 1.0 APTT 24 Puncture Site pCO2 pO2 HCO3 ABG pH ABG Total CO2 ABG O2 Saturation ABG Base Excess ABG Hemoglobin ABG Carboxyhemoglobin POC ABG HHb (Measured) ABG Methemoglobin Jose Maria Test ABG Potassium A-a O2 Difference Respiratory Index Hgb O2 Saturation Glucose Lactate Vent Mode Mechanical Rate FiO2 Tidal Volume PEEP Crit Value Called To Crit Value Called By Crit Value Read Back Blood Gas Notified Time Sodium Potassium Chloride Carbon Dioxide Anion Gap BUN Creatinine Est GFR ( Amer) Est GFR (Non-Af Amer) Random Glucose Lactic Acid 3.2 H Calcium Phosphorus Magnesium Total Bilirubin AST ALT Alkaline Phosphatase Total Protein Albumin Globulin Albumin/Globulin Ratio Arterial Blood Potassium C. difficile Ag & Toxin 01/13/17 01/13/17 01/14/17 18:26 20:15 05:20 WBC RBC Hgb Hct MCV MCH MCHC RDW Plt Count MPV Neut % (Auto) Lymph % (Auto) Mcdonald % (Auto) Eos % (Auto) Baso % (Auto) Neut # Lymph # Mcdonald # Eos # Baso # Neutrophils % (Manual) Band Neutrophils % Lymphocytes % (Manual) Monocytes % (Manual) Platelet Estimate Hypochromasia (manual) PT INR APTT Puncture Site Rra Rrdial pCO2 32 L 38 pO2 185 H 103 H HCO3 29.0 H 29.1 H ABG pH 7.54 H 7.49 H ABG Total CO2 28.4 H 30.2 H ABG O2 Saturation 99.0 H 99.0 H ABG Base Excess 5.2 H 5.3 H ABG Hemoglobin 8.5 L ABG Carboxyhemoglobin 1.2 POC ABG HHb (Measured) 1.0 ABG Methemoglobin 0.8 Jose Maria Test Pos Pos ABG Potassium 3.4 L A-a O2 Difference 203.0 206.0 Respiratory Index 1.1 2.0 Hgb O2 Saturation 97.0 Glucose 233 H Lactate 3.6 H Vent Mode A/c Prvc Mechanical Rate 12 12 FiO2 60.0 50.0 Tidal Volume 450 400 PEEP 5 5 Crit Value Called To Crit Value Called By Crit Value Read Back Blood Gas Notified Time Sodium 137 141.0 Potassium 3.4 L Chloride 95 L 109.0 H Carbon Dioxide 25 Anion Gap 20 BUN 29 H Creatinine 0.6 L Est GFR ( Amer) > 60 Est GFR (Non-Af Amer) > 60 Random Glucose 208 H Lactic Acid Calcium 8.3 L Phosphorus Magnesium Total Bilirubin 0.8 AST 30 ALT 57 H Alkaline Phosphatase 63 Total Protein 5.0 L Albumin 2.5 L Globulin 2.5 Albumin/Globulin Ratio 1.0 Arterial Blood Potassium 3.4 L C. difficile Ag & Toxin 01/14/17 01/14/17 06:36 06:36 WBC 13.0 H RBC 2.57 L Hgb 8.1 L Hct 24.2 L MCV 93.9 D MCH 31.4 H MCHC 33.4 RDW 14.4 Plt Count 145 MPV 9.6 Neut % (Auto) 94.5 H Lymph % (Auto) 2.8 L Mcdonald % (Auto) 2.6 Eos % (Auto) 0.0 Baso % (Auto) 0.1 Neut # 12.3 H Lymph # 0.4 L Mcdonald # 0.3 Eos # 0.0 Baso # 0.0 Neutrophils % (Manual) 94 H Band Neutrophils % 2 Lymphocytes % (Manual) 3 L Monocytes % (Manual) 1 Platelet Estimate Normal Hypochromasia (manual) Slight PT INR APTT Puncture Site pCO2 pO2 HCO3 ABG pH ABG Total CO2 ABG O2 Saturation ABG Base Excess ABG Hemoglobin ABG Carboxyhemoglobin POC ABG HHb (Measured) ABG Methemoglobin Jose Maria Test ABG Potassium A-a O2 Difference Respiratory Index Hgb O2 Saturation Glucose Lactate Vent Mode Mechanical Rate FiO2 Tidal Volume PEEP Crit Value Called To Crit Value Called By Crit Value Read Back Blood Gas Notified Time Sodium 139 Potassium 3.3 L Chloride 101 Carbon Dioxide 27 Anion Gap 14 BUN 29 H Creatinine 0.8 Est GFR ( Amer) > 60 Est GFR (Non-Af Amer) > 60 Random Glucose 198 H Lactic Acid Calcium 8.0 L Phosphorus 5.1 H Magnesium 2.1 Total Bilirubin 0.8 AST 32 ALT 58 H Alkaline Phosphatase 55 Total Protein 5.0 L Albumin 2.5 L Globulin 2.5 Albumin/Globulin Ratio 1.0 Arterial Blood Potassium C. difficile Ag & Toxin Review of Systems - Review of Systems Review of Systems: Unable to evaluate Assessment/Plan - Assessment and Plan (Free Text) Assessment: Patient is a 76 y/o female with past medical history Anemia, Anxiety, Arthritis , Cardiac Arrhythmia, COPD, Depression, HTN, Hyperlipidemia, Multiple Sclerosis , Osteoporosis, Peripheral Edema, Pulmonary Embolism, Chronic Kidney Disease, Rheumatoid Arthritis, presents with dyspnea and sepsis. Plan: Pulm: Hypercapnic respiratory failure * Intubated on 01/08/17 * Duonebs 2.5mg RQ4 * Solu-Medrol 40mg IVP Q12H Chest X-ray (01/14/17): Lines and tubes in stable position. Moderate right pleural effusion. Confluent airspace consolidation within the right mid to lower lung zone. Prominent diffuse increased interstitial lung markings. Biapical pleural thickening with upper lobe granulomatous changes. Cardio: Diastolic heart failure * On admission, BNP: 18,200 Echo( 01/08/17): Normal LV systolic HTN: Lisinopril 5mg PO daily GI: * Elevated ALT * Continue to monitor Renal: * BUN elevated, Normal Cr - BUN trending down * Continue to monitor urine output ID: Dr. Lind on board---> Help appreciated * Septic on admission: Lactate of 1.1--->1.9 with bands of 40 (Resolved) * Blood Cultures: Coagulase (-) staphylococcus (01/07/17) * Urine culture: negative * Sputum gram stain : Yeast species Current medication: * Zosyn 3.375gm IVPB Q8H * Vanco discontinued on the 01/09 * Linezolid 600mg IV Q12H (01/08/17-01/11/17) * Fluconazole 200Mg IVBP daily Neuro: * Lethargic Prophylaxis: * GI: Protonix 40mg GT daily * DVT: SCDs, anticoagulation contraindicated due to unstable H/H
--- NOTE | 2017-01-14 15:13 | CP.PCM.PN ---
Subjective - Date & Time of Evaluation Date of Evaluation: 01/14/17 Time of Evaluation: 15:12 - Subjective Subjective: Pt on CPAP but getting tachypneic at 30. With pt's consolidation and pleural effusion, am pretty sure pt would not tolerate extubation but pulmonary exercise necessary to maintain or increase pulmonary strength and to tolerate greater work of breathing. Objective - Vital Signs/Intake and Output Vital Signs (last 24 hours): Temp Pulse Resp BP Pulse Ox 98 F 87 30 H 126/65 94 L 01/14/17 12:00 01/14/17 14:07 01/14/17 14:07 01/14/17 14:07 01/14/17 14:07 Intake and Output: 01/14/17 01/14/17 06:59 18:59 Intake Total 410 590 Output Total 600 295 Balance -190 295 - Medications Medications: Current Medications Albuterol Sulfate (Albuterol 0.083% Inhal Jeri (2.5 Mg/3 Ml) Ud) 2.5 mg INH RQ4 [facility] Last Admin: 01/14/17 11:13 Dose: 2.5 mg Piperacillin Sod/Tazobactam Sod (Zosyn 3.375 Gm Iv Premix) 3.375 gm in 50 mls @ 100 mls/hr IVPB Q8H [facility] Last Admin: 01/14/17 11:07 Dose: 100 mls/hr Fluconazole (Diflucan Iv 200 Mg/100 Ml Ns) 100 mls @ 100 mls/hr IVPB DAILY [facility] Last Admin: 01/14/17 09:58 Dose: 100 mls/hr Lisinopril (Zestril) 5 mg PO DAILY [facility] Last Admin: 01/14/17 09:58 Dose: 5 mg Methylprednisolone (Solu-Medrol) 40 mg IVP Q12 [facility] Last Admin: 01/14/17 09:58 Dose: 40 mg Pantoprazole Sodium (Protonix Susp) 40 mg GT DAILY [facility] Last Admin: 01/14/17 09:58 Dose: 40 mg Potassium Chloride (Potassium Chloride Oral Soln) 20 meq NG BID [facility] Last Admin: 01/14/17 09:58 Dose: 20 meq - Labs Labs: 01/14/17 06:36 01/14/17 06:36 PT 10.6 SECONDS (9.7-12.2) 01/13/17 18:26 INR 1.0 01/13/17 18:26 APTT 24 SECONDS (21-34) 01/13/17 18:26 - Constitutional Appears: No Acute Distress, Other (intubated) - Head Exam Head Exam: NORMAL INSPECTION, NORMOCEPHALIC - Eye Exam Eye Exam: Normal appearance Pupil Exam: NORMAL ACCOMODATION - ENT Exam ENT Exam: Normal Exam Additional comments: with ET tube - Neck Exam Neck Exam: Normal Inspection - Respiratory Exam Respiratory Exam: Rhonchi Additional comments: on vent, junky - Cardiovascular Exam Cardiovascular Exam: REGULAR RHYTHM - Neurological Exam Neurological Exam: absent: Abnormal Gait, Alert, Altered, Awake, CN II-XII Intact, Motor Sensory Deficit, Normal Gait, Oriented x3, Reflexes Normal Assessment and Plan (1) Septic shock due to coagulase-negative staphylococcal infection Assessment & Plan: WBC climbing again, had been climbing since the weekend Status: Acute (2) Respiratory failure Assessment & Plan: weaning attempted but doubt will succeed, not the apropriate time for this Status: Acute (3) HCAP (healthcare-associated pneumonia) Assessment & Plan: on IV abx but WBC climbing. Noted re-consult of ID and addition of abx Status: Acute (4) Multiple sclerosis Assessment & Plan: end stage Status: Chronic (5) Physical debility Status: Acute
--- NOTE | 2017-01-14 15:48 | CP.PCM.CON ---
History of Present Illness - History of Present Illness History of Present Illness: Palliative consult Requested by Armida MARTINEZ Reason: Goals of care discussion patient is a 76 yo female admitted from [place] with Hypoxemia and fever. Patient was intubated for acute respiratory distress and transfered to ICU for further care. The CXR upon admission was suggestive for severe pulmonary venous congestion. The blood work revealed elevated BNP of 2420, elevated Lactate and hypokalemia. Zosyn, Diflucan and Solu Medrol on board. PMH: anemia, anxiety, COPD, HTN, MS, PVD, osteoporosis, PE, RA, CKD Soc. Hx: , [place] resident fam. Hx: COPD and CKD in family Review of Systems - Review of Systems Systems not reviewed;Unavailable: Intubated All systems: reviewed and no additional remarkable complaints except Review of Systems: ROS obtained from nursing. Process of weaning from the MV in process. Past Patient History - Infectious Disease Hx of Infectious Diseases: None - Tetanus Immunizations Tetanus Immunization: Up to Date - Past Medical History & Family History Past Medical History?: Yes - Past Social History Smoking Status: Never Smoked - CARDIAC Hx Cardia Arrhythmia: Yes Hx Hypertension: Yes Hx Peripheral Edema: Yes - PULMONARY Hx Chronic Obstructive Pulmonary Disease (COPD): Yes Hx Pulmonary Embolism: Yes - NEUROLOGICAL Hx Multiple Sclerosis: Yes - HEENT Hx HEENT Problems: Yes Hx Blind: No Hx Cataracts: Yes Hx Difficulty Chewing: No Hx Epistaxis: No Hx Glaucoma: No Hx Macular Degeneration: No Other/Comment: wears eyeglasses for reading - RENAL Hx Chronic Kidney Disease: Yes - ENDOCRINE/METABOLIC Hx Hyperthyroidism: No Hx Hypothyroidism: No - HEMATOLOGICAL/ONCOLOGICAL Hx Anemia: Yes - INTEGUMENTARY Hx Dermatological Problems: Yes Hx Eczema: Yes Hx Melanoma: No Hx Psoriasis: No Hx Squamous Cell: No Other/Comment: > hx of garvin hong syndrome, unknown precipitant. > hx of bullous pemphigoid - MUSCULOSKELETAL/RHEUMATOLOGICAL Hx Arthritis: Yes Hx Osteoporosis: Yes Hx Rheumatoid Arthritis: Yes - GASTROINTESTINAL Hx Gastrointestinal Disorders: Yes Hx Constipation: Yes - GENITOURINARY/GYNECOLOGICAL Other/Comment: wears a diaper in the [facility] (as with all patients) - PSYCHIATRIC Hx Anxiety: Yes Hx Depression: Yes Hx Substance Use: No - SURGICAL HISTORY Hx Surgeries: Yes Other/Comment: IVC filter 5-6 years ago for b/l DVT - ANESTHESIA Hx Anesthesia: Yes Hx Anesthesia Reactions: No Hx Malignant Hyperthermia: No Meds Allergies/Adverse Reactions: Allergies Allergy/AdvReac Type Severity Reaction Status Date / Time ascorbic acid Allergy Severe ANAPHYLAXIS Verified 01/07/17 09:45 aspirin Allergy RASH Verified 01/07/17 09:45 iodine Allergy RASH Verified 01/07/17 09:45 Ponds cream Allergy Severe ANAPHYLAXIS Uncoded 05/07/16 00:13 - Medications Medications: Current Medications Albuterol Sulfate (Albuterol 0.083% Inhal Jeri (2.5 Mg/3 Ml) Ud) 2.5 mg INH RQ4 [facility] Last Admin: 01/14/17 11:13 Dose: 2.5 mg Piperacillin Sod/Tazobactam Sod (Zosyn 3.375 Gm Iv Premix) 3.375 gm in 50 mls @ 100 mls/hr IVPB Q8H [facility] Last Admin: 01/14/17 11:07 Dose: 100 mls/hr Fluconazole (Diflucan Iv 200 Mg/100 Ml Ns) 100 mls @ 100 mls/hr IVPB DAILY [facility] Last Admin: 01/14/17 09:58 Dose: 100 mls/hr Lisinopril (Zestril) 5 mg PO DAILY [facility] Last Admin: 01/14/17 09:58 Dose: 5 mg Methylprednisolone (Solu-Medrol) 40 mg IVP Q12 [facility] Last Admin: 01/14/17 09:58 Dose: 40 mg Pantoprazole Sodium (Protonix Susp) 40 mg GT DAILY [facility] Last Admin: 01/14/17 09:58 Dose: 40 mg Potassium Chloride (Potassium Chloride Oral Soln) 20 meq NG BID [facility] Last Admin: 01/14/17 09:58 Dose: 20 meq Physical Exam - Constitutional Appears: Chronically Ill - Head Exam Head Exam: ATRAUMATIC, NORMAL INSPECTION, NORMOCEPHALIC - Eye Exam Eye Exam: EOMI, Normal appearance, PERRL Pupil Exam: NORMAL ACCOMODATION, PERRL - ENT Exam ENT Exam: Mucous Membranes Moist, Normal Exam - Neck Exam Neck exam: Positive for: Normal Inspection - Respiratory Exam Respiratory Exam: Decreased Breath Sounds Additional comments: On CPAP trial - Cardiovascular Exam Cardiovascular Exam: Tachycardia - GI/Abdominal Exam GI & Abdominal Exam: Hyperactive Bowel Sounds, Soft - Rectal Exam Additional comments: Fecal pouch, stool loose - Extremities Exam Extremities exam: Positive for: pedal edema - Back Exam Back exam: NORMAL INSPECTION - Neurological Exam Neurological exam: Alert - Psychiatric Exam Psychiatric exam: Flat Affect - Skin Skin Exam: Normal Color, Warm Results - Vital Signs Recent Vital Signs: Last Vital Signs Temp 98 F 01/14/17 12:00 Pulse 87 01/14/17 14:07 Resp 30 H 01/14/17 14:07 BP 126/65 01/14/17 14:07 Pulse Ox 94 L 01/14/17 14:07 - Labs Result Diagrams: 01/14/17 06:36 01/14/17 06:36 Labs: Laboratory Results - last 24 hr 01/13/17 01/13/17 01/13/17 14:30 16:45 17:43 WBC 12.5 H RBC 2.83 L Hgb 8.7 L Hct 25.8 L MCV 91.3 MCH 30.9 MCHC 33.8 RDW 14.3 Plt Count 145 MPV 9.1 Neut % (Auto) 93.2 H Lymph % (Auto) 4.6 L Band[place] % (Auto) 1.9 Eos % (Auto) 0.0 Baso % (Auto) 0.3 Neut # 11.7 H Lymph # 0.6 L Band[place] # 0.2 Eos # 0.0 Baso # 0.0 Neutrophils % (Manual) 94 H Band Neutrophils % 1 Lymphocytes % (Manual) 4 L Monocytes % (Manual) 1 Platelet Estimate Normal Hypochromasia (manual) PT INR APTT Puncture Site Rra pCO2 25 L pO2 57 L HCO3 32.0 H ABG pH 7.68 H* ABG Total CO2 30.3 H ABG O2 Saturation 94.8 L ABG Base Excess 9.1 H ABG Hemoglobin 8.6 L ABG Carboxyhemoglobin 1.3 POC ABG HHb (Measured) 5.1 H ABG Methemoglobin 1.0 Jose Maria Test Pos ABG Potassium A-a O2 Difference 197.0 Respiratory Index 3.5 Hgb O2 Saturation 92.6 L Glucose Lactate Vent Mode A/c Mechanical Rate 12 FiO2 40.0 Tidal Volume 450 PEEP 5 Crit Value Called To Dr harpreet kincaid Crit Value Called By Jessica philippe Crit Value Read Back Y Blood Gas Notified Time 1655 Sodium Potassium Chloride Carbon Dioxide Anion Gap BUN Creatinine Est GFR ( Amer) Est GFR (Non-Af Amer) Random Glucose Lactic Acid Calcium Phosphorus Magnesium Total Bilirubin AST ALT Alkaline Phosphatase Total Protein Albumin Globulin Albumin/Globulin Ratio Arterial Blood Potassium C. difficile Ag & Toxin Negative 01/13/17 01/13/17 01/13/17 17:43 17:43 17:43 WBC RBC Hgb Hct MCV MCH MCHC RDW Plt Count MPV Neut % (Auto) Lymph % (Auto) Band[place] % (Auto) Eos % (Auto) Baso % (Auto) Neut # Lymph # Band[place] # Eos # Baso # Neutrophils % (Manual) Band Neutrophils % Lymphocytes % (Manual) Monocytes % (Manual) Platelet Estimate Hypochromasia (manual) PT 10.7 INR 1.0 APTT 26 Puncture Site pCO2 pO2 HCO3 ABG pH ABG Total CO2 ABG O2 Saturation ABG Base Excess ABG Hemoglobin ABG Carboxyhemoglobin POC ABG HHb (Measured) ABG Methemoglobin Jose Maria Test ABG Potassium A-a O2 Difference Respiratory Index Hgb O2 Saturation Glucose Lactate Vent Mode Mechanical Rate FiO2 Tidal Volume PEEP Crit Value Called To Crit Value Called By Crit Value Read Back Blood Gas Notified Time Sodium 137 Potassium 3.6 Chloride 97 L Carbon Dioxide 27 Anion Gap 17 BUN 29 H Creatinine 0.6 L Est GFR ( Amer) > 60 Est GFR (Non-Af Amer) > 60 Random Glucose 216 H Lactic Acid 3.0 H Calcium 8.4 L Phosphorus Magnesium Total Bilirubin 0.8 AST 34 ALT 56 H Alkaline Phosphatase 60 Total Protein 5.0 L Albumin 2.5 L Globulin 2.5 Albumin/Globulin Ratio 1.0 Arterial Blood Potassium C. difficile Ag & Toxin 01/13/17 01/13/17 01/13/17 18:26 18:26 18:26 WBC 13.6 H RBC 2.76 L Hgb 8.4 L Hct 25.2 L MCV 91.3 MCH 30.6 MCHC 33.5 RDW 14.2 Plt Count 140 MPV 8.9 Neut % (Auto) 93.4 H Lymph % (Auto) 4.4 L Band[place] % (Auto) 2.0 Eos % (Auto) 0.0 Baso % (Auto) 0.2 Neut # 12.7 H Lymph # 0.6 L Band[place] # 0.3 Eos # 0.0 Baso # 0.0 Neutrophils % (Manual) Band Neutrophils % Lymphocytes % (Manual) Monocytes % (Manual) Platelet Estimate Hypochromasia (manual) PT 10.6 INR 1.0 APTT 24 Puncture Site pCO2 pO2 HCO3 ABG pH ABG Total CO2 ABG O2 Saturation ABG Base Excess ABG Hemoglobin ABG Carboxyhemoglobin POC ABG HHb (Measured) ABG Methemoglobin Jose Maria Test ABG Potassium A-a O2 Difference Respiratory Index Hgb O2 Saturation Glucose Lactate Vent Mode Mechanical Rate FiO2 Tidal Volume PEEP Crit Value Called To Crit Value Called By Crit Value Read Back Blood Gas Notified Time Sodium Potassium Chloride Carbon Dioxide Anion Gap BUN Creatinine Est GFR ( Amer) Est GFR (Non-Af Amer) Random Glucose Lactic Acid 3.2 H Calcium Phosphorus Magnesium Total Bilirubin AST ALT Alkaline Phosphatase Total Protein Albumin Globulin Albumin/Globulin Ratio Arterial Blood Potassium C. difficile Ag & Toxin 01/13/17 01/13/17 01/14/17 18:26 20:15 05:20 WBC RBC Hgb Hct MCV MCH MCHC RDW Plt Count MPV Neut % (Auto) Lymph % (Auto) Band[place] % (Auto) Eos % (Auto) Baso % (Auto) Neut # Lymph # Band[place] # Eos # Baso # Neutrophils % (Manual) Band Neutrophils % Lymphocytes % (Manual) Monocytes % (Manual) Platelet Estimate Hypochromasia (manual) PT INR APTT Puncture Site Rra Rrdial pCO2 32 L 38 pO2 185 H 103 H HCO3 29.0 H 29.1 H ABG pH 7.54 H 7.49 H ABG Total CO2 28.4 H 30.2 H ABG O2 Saturation 99.0 H 99.0 H ABG Base Excess 5.2 H 5.3 H ABG Hemoglobin 8.5 L ABG Carboxyhemoglobin 1.2 POC ABG HHb (Measured) 1.0 ABG Methemoglobin 0.8 Jose Maria Test Pos Pos ABG Potassium 3.4 L A-a O2 Difference 203.0 206.0 Respiratory Index 1.1 2.0 Hgb O2 Saturation 97.0 Glucose 233 H Lactate 3.6 H Vent Mode A/c Prvc Mechanical Rate 12 12 FiO2 60.0 50.0 Tidal Volume 450 400 PEEP 5 5 Crit Value Called To Crit Value Called By Crit Value Read Back Blood Gas Notified Time Sodium 137 141.0 Potassium 3.4 L Chloride 95 L 109.0 H Carbon Dioxide 25 Anion Gap 20 BUN 29 H Creatinine 0.6 L Est GFR ( Amer) > 60 Est GFR (Non-Af Amer) > 60 Random Glucose 208 H Lactic Acid Calcium 8.3 L Phosphorus Magnesium Total Bilirubin 0.8 AST 30 ALT 57 H Alkaline Phosphatase 63 Total Protein 5.0 L Albumin 2.5 L Globulin 2.5 Albumin/Globulin Ratio 1.0 Arterial Blood Potassium 3.4 L C. difficile Ag & Toxin 01/14/17 01/14/17 06:36 06:36 WBC 13.0 H RBC 2.57 L Hgb 8.1 L Hct 24.2 L MCV 93.9 D MCH 31.4 H MCHC 33.4 RDW 14.4 Plt Count 145 MPV 9.6 Neut % (Auto) 94.5 H Lymph % (Auto) 2.8 L Band[place] % (Auto) 2.6 Eos % (Auto) 0.0 Baso % (Auto) 0.1 Neut # 12.3 H Lymph # 0.4 L Band[place] # 0.3 Eos # 0.0 Baso # 0.0 Neutrophils % (Manual) 94 H Band Neutrophils % 2 Lymphocytes % (Manual) 3 L Monocytes % (Manual) 1 Platelet Estimate Normal Hypochromasia (manual) Slight PT INR APTT Puncture Site pCO2 pO2 HCO3 ABG pH ABG Total CO2 ABG O2 Saturation ABG Base Excess ABG Hemoglobin ABG Carboxyhemoglobin POC ABG HHb (Measured) ABG Methemoglobin Jose Maria Test ABG Potassium A-a O2 Difference Respiratory Index Hgb O2 Saturation Glucose Lactate Vent Mode Mechanical Rate FiO2 Tidal Volume PEEP Crit Value Called To Crit Value Called By Crit Value Read Back Blood Gas Notified Time Sodium 139 Potassium 3.3 L Chloride 101 Carbon Dioxide 27 Anion Gap 14 BUN 29 H Creatinine 0.8 Est GFR ( Amer) > 60 Est GFR (Non-Af Amer) > 60 Random Glucose 198 H Lactic Acid Calcium 8.0 L Phosphorus 5.1 H Magnesium 2.1 Total Bilirubin 0.8 AST 32 ALT 58 H Alkaline Phosphatase 55 Total Protein 5.0 L Albumin 2.5 L Globulin 2.5 Albumin/Globulin Ratio 1.0 Arterial Blood Potassium C. difficile Ag & Toxin Assessment & Plan - Assessment and Plan (Free Text) Assessment: Palliative consult No Advance Directive on chart, PPS 10% I reviewed medical records, all diagnostic studies, examined patient in the bed and discussed her presentation with nursing. Patient is alert, intubated on MV, makes eye contacts and communicates by blinking the eyes. Patient signalled was not in any pain. The CPAP trial was in process at the time of exam. The initial FiO2 was 50%. Abdomen is soft, hyperactive bowel sounds, stool looe and green, negative for C Diff. Rectal pouch in place. NGT for feedings. Mild edema pedal edema. BP 151/63, HR92. WBC 13.0, Hb 8.1 from 9.6, no signs of bleeding noted. I called patient's daughter Deim and left voice mail asking for call back. Impression * This is a chronically ill lady with advanced MS * Patient is not tolerating CPAP well * Patient is unablrw ro participate in goals of care discussion due to condition * Patient's wishes for the end of life care are not known Suggestion * If patient does not tolerate CPAP well due to lungs inability to support normal breathing ( Hint : MS) the trach placement may be an option * Further discussion for goals of care will take place once the daughter Demi calls back and date and time established. * promote comfort and skin integrity Thank you for consulting Palliative Care P.S The daughter just called back. Family meeting will take place tomorrow. Time is still be decided upon by the family.
--- NOTE | 2017-01-14 18:25 | CP.PCM.PN ---
<Neil Biu - Last Filed: 01/14/17 18:30> Subjective - Date & Time of Evaluation Date of Evaluation: 01/14/17 Time of Evaluation: 10:39 - Subjective Subjective: Cardiology Progress Note- Dr. Danielson's service Pt seen and examined. Patient intubated but off sedation. Patient to undergo CPAP trial today. Patient able to nod to ROS. She denies chest pain, dyspnea, subjective fevers or chills at this time. Objective - Vital Signs/Intake and Output Vital Signs (last 24 hours): Temp Pulse Resp BP Pulse Ox 98 F 107 H 31 H 115/60 94 L 01/14/17 12:00 01/14/17 18:00 01/14/17 18:00 01/14/17 16:27 01/14/17 18:00 Intake and Output: 01/14/17 01/14/17 06:59 18:59 Intake Total 410 590 Output Total 600 295 Balance -190 295 - Medications Medications: Current Medications Albuterol Sulfate (Albuterol 0.083% Inhal Jeri (2.5 Mg/3 Ml) Ud) 2.5 mg INH RQ4 [facility] Last Admin: 01/14/17 15:56 Dose: 2.5 mg Piperacillin Sod/Tazobactam Sod (Zosyn 3.375 Gm Iv Premix) 3.375 gm in 50 mls @ 100 mls/hr IVPB Q8H [facility] Last Admin: 01/14/17 18:05 Dose: 100 mls/hr Fluconazole (Diflucan Iv 200 Mg/100 Ml Ns) 100 mls @ 100 mls/hr IVPB DAILY [facility] Last Admin: 01/14/17 09:58 Dose: 100 mls/hr Lisinopril (Zestril) 5 mg PO DAILY [facility] Last Admin: 01/14/17 09:58 Dose: 5 mg Methylprednisolone (Solu-Medrol) 40 mg IVP Q12 [facility] Last Admin: 01/14/17 09:58 Dose: 40 mg Pantoprazole Sodium (Protonix Susp) 40 mg GT DAILY [facility] Last Admin: 01/14/17 09:58 Dose: 40 mg Potassium Chloride (Potassium Chloride Oral Soln) 20 meq NG BID [facility] Last Admin: 01/14/17 18:05 Dose: 20 meq - Labs Labs: 01/14/17 06:36 01/14/17 06:36 PT 10.6 SECONDS (9.7-12.2) 01/13/17 18:26 INR 1.0 01/13/17 18:26 APTT 24 SECONDS (21-34) 01/13/17 18:26 - Constitutional Appears: Non-toxic, No Acute Distress - Head Exam Head Exam: ATRAUMATIC, NORMAL INSPECTION, NORMOCEPHALIC - Eye Exam Eye Exam: EOMI, Normal appearance, PERRL Pupil Exam: NORMAL ACCOMODATION, PERRL - ENT Exam ENT Exam: Mucous Membranes Moist - Neck Exam Neck Exam: Full ROM - Respiratory Exam Respiratory Exam: Rhonchi - Cardiovascular Exam Cardiovascular Exam: +S1, +S2 - GI/Abdominal Exam GI & Abdominal Exam: Soft, Normal Bowel Sounds - Neurological Exam Neurological Exam: Awake - Psychiatric Exam Psychiatric exam: Flat Affect - Skin Skin Exam: Dry, Intact, Warm Additional comments: ecchymosis on flexor surface of left arm Assessment and Plan - Assessment and Plan (Free Text) Assessment: CHF -BNP 77423 -Echo: Normal EF, mild pulmonary hypertension -Lasix 40mg IV held by primary due to episodes of hypotension. -One dose of Lasix today -Monitor Daily weight and I&Os HTN -Continue Lisinopril 5mg -Hold parameters in place for hypotension History of PE -Lovenox SC held due to bleeding from ET tube Hyperlipidemia -Patient would benefit from Crestor Prophylactic Measure -Anticoagulation held due to bleeding from ET tube -PPI 40 mg daily GT <Florentino Danielson - Last Filed: 01/14/17 21:42> Objective - Vital Signs/Intake and Output Vital Signs (last 24 hours): Temp Pulse Resp BP Pulse Ox 98.1 F 103 H 42 H 105/66 89 L 01/14/17 20:00 01/14/17 20:27 01/14/17 20:27 01/14/17 20:27 01/14/17 20:27 Intake and Output: 01/14/17 01/15/17 18:59 06:59 Intake Total 960 90 Output Total 695 200 Balance 265 -110 - Medications Medications: Current Medications Albuterol Sulfate (Albuterol 0.083% Inhal Jeri (2.5 Mg/3 Ml) Ud) 2.5 mg INH RQ4 [facility] Last Admin: 01/14/17 20:22 Dose: 2.5 mg Piperacillin Sod/Tazobactam Sod (Zosyn 3.375 Gm Iv Premix) 3.375 gm in 50 mls @ 100 mls/hr IVPB Q8H [facility] Last Admin: 01/14/17 18:05 Dose: 100 mls/hr Fluconazole (Diflucan Iv 200 Mg/100 Ml Ns) 100 mls @ 100 mls/hr IVPB DAILY [facility] Last Admin: 01/14/17 09:58 Dose: 100 mls/hr Lisinopril (Zestril) 5 mg PO DAILY [facility] Last Admin: 01/14/17 09:58 Dose: 5 mg Methylprednisolone (Solu-Medrol) 40 mg IVP Q12 [facility] Last Admin: 01/14/17 09:58 Dose: 40 mg Pantoprazole Sodium (Protonix Susp) 40 mg GT DAILY [facility] Last Admin: 01/14/17 09:58 Dose: 40 mg Potassium Chloride (Potassium Chloride Oral Soln) 20 meq NG BID [facility] Last Admin: 01/14/17 18:05 Dose: 20 meq - Labs Labs: 01/14/17 06:36 01/14/17 06:36 PT 10.6 SECONDS (9.7-12.2) 01/13/17 18:26 INR 1.0 01/13/17 18:26 APTT 24 SECONDS (21-34) 01/13/17 18:26 Assessment and Plan - Assessment and Plan (Free Text) Assessment: Patient seen and evaluated with the residential mental health worker Plan of care as documented
[2017-01-15] MEDS: Albuterol 0.083% Inhal Sol (2.5 mg/3 mL) UD INH SCH ×6 (00:49→19:49)
[2017-01-15] MEDS: Piperacill/Tazo 3.375gm in Dex 3.375 GM/50 ML BAG IVPB SCH ×3 (01:53→17:41)
[2017-01-15 05:27] LABS: ABG ALLEN TEST POS; ABG MECHANICAL RATE 12; ARTERIAL BLOOD GAS MODE PRVC; ARTERIAL BLOOD HGB O2 SAT 92.5 % (95.0-98.0); ATERIAL BLOOD GAS PEEP 5; CARBOXYHEMOGLOBIN 1.2 % (0.5-1.5); DRAW SITE R RAD; HHB 5.2 % (0.0-5.0); METHEMOGLOBIN 1.2 % (0.0-3.0)
[2017-01-15 06:35] LABS: BASO % 0.1 % (0.0-2.0); EOS % 0.1 % (0.0-4.0); LYMPH # 0.6 K/uL (1.0-4.3); LYMPH % 4.3 % (20.0-40.0); MEAN CELL VOLUME 93.7 fL (81.0-99.0); MEAN CORPUSCULAR HEMOGLOBIN 31.1 pg (27.0-31.0); MEAN CORPUSCULAR HGB CONC 33.2 g/dL (33.0-37.0); MEAN PLATELET VOLUME 9.3 fL (7.2-11.7); MONO # 0.4 K/uL (0.0-0.8); MONO % 2.5 % (0.0-10.0); NRBC % 0.2 % (0.0-2.0); PLATELET COUNT 200 K/uL (130-400); RED CELL DISTRIBUTION WIDTH 13.8 % (11.5-14.5); WHITE BLOOD COUNT 14.9 K/uL (4.8-10.8)
[2017-01-15 06:45] LABS: ALB/GLOB RATIO 1.1 (1.0-2.1); ALKALINE PHOSPHATASE 59 U/L (38-126); ALT/SGPT 52 U/L (9-52); AST/SGOT 25 U/L (14-36); BILIRUBIN,TOTAL 0.5 mg/dL (0.2-1.3); BLOOD UREA NITROGEN 31 mg/dL (7-17); CALCIUM 8.4 mg/dl (8.6-10.4); CARBON DIOXIDE 27 mmol/L (22-30); CHLORIDE 102 mmol/L (98-107); GFR AFRICAN-AMERICAN > 60; GLUCOSE,RANDOM 216 mg/dL (65-105); MAGNESIUM 2.4 mg/dL (1.6-2.3); PHOSPHOROUS 3.4 mg/dL (2.5-4.5); POTASSIUM 4.1 mmol/L (3.6-5.2); TOTAL PROTEIN 5.2 g/dL (6.3-8.3)
[2017-01-15 06:59] LABS: SODIUM 138 mmol/L (132-148)
[2017-01-15 08:12] LABS: NEUTROPHIL 95 % (50-75); NUCLEATED RED BLOOD CELL 3 % (0-0); TOTAL CELLS COUNTED 100
--- NOTE | 2017-01-15 08:38 | RAD ---
Chest x-ray single frontal view History: Intubated. Comparison: 01/14/2017 Findings: Lines and tubes in stable position. Biapical pleural thickening with upper lobe granulomatous changes. Prominent diffuse increased interstitial lung markings. Right hilar prominence. Patchy bibasilar consolidative changes. Small bilateral pleural effusions. Calcification at the aortic knob. Heart size within normal limits. Degenerative changes in the spine and shoulders. Impression: Biapical pleural thickening with upper lobe granulomatous changes. Prominent diffuse increased interstitial lung markings. Right hilar prominence. Patchy bibasilar consolidative changes. Small bilateral pleural effusions. Calcification at the aortic knob.
[2017-01-15] MEDS: MethylPREDNISolone 40 mg Vial IVP SCH ×2 (10:03→22:00)
[2017-01-15] MEDS: Pantoprazole 40 mg Susp UD GT SCH (10:04)
[2017-01-15] MEDS: Fluconazole IV 200mg/100 ml NS 100 ML IVPB SCH (10:04)
--- NOTE | 2017-01-15 11:56 | CP.PCM.PN ---
Subjective - Date & Time of Evaluation Date of Evaluation: 01/15/17 Time of Evaluation: 09:00 - Subjective Subjective: events noted discussed on rounds iv rx in progress Objective - Vital Signs/Intake and Output Vital Signs (last 24 hours): Temp Pulse Resp BP Pulse Ox 98.6 F 110 H 32 H 134/83 96 01/15/17 08:00 01/15/17 11:03 01/15/17 11:03 01/15/17 11:03 01/15/17 11:03 Intake and Output: 01/15/17 01/15/17 06:59 18:59 Intake Total 410 60 Output Total 650 100 Balance -240 -40 - Medications Medications: Current Medications Albuterol Sulfate (Albuterol 0.083% Inhal Jeri (2.5 Mg/3 Ml) Ud) 2.5 mg INH RQ4 [facility] Last Admin: 01/15/17 11:12 Dose: 2.5 mg Piperacillin Sod/Tazobactam Sod (Zosyn 3.375 Gm Iv Premix) 3.375 gm in 50 mls @ 100 mls/hr IVPB Q8H [facility] Last Admin: 01/15/17 11:16 Dose: 100 mls/hr Fluconazole (Diflucan Iv 200 Mg/100 Ml Ns) 100 mls @ 100 mls/hr IVPB DAILY [facility] Last Admin: 01/15/17 10:04 Dose: 100 mls/hr Lisinopril (Zestril) 5 mg PO DAILY [facility] Last Admin: 01/15/17 10:04 Dose: 5 mg Methylprednisolone (Solu-Medrol) 40 mg IVP Q12 [facility] Last Admin: 01/15/17 10:03 Dose: 40 mg Pantoprazole Sodium (Protonix Susp) 40 mg GT DAILY [facility] Last Admin: 01/15/17 10:04 Dose: 40 mg Potassium Chloride (Potassium Chloride Oral Soln) 20 meq NG BID [facility] Last Admin: 01/14/17 18:05 Dose: 20 meq - Labs Labs: 01/15/17 06:24 01/15/17 06:24 PT 10.6 SECONDS (9.7-12.2) 01/13/17 18:26 INR 1.0 01/13/17 18:26 APTT 24 SECONDS (21-34) 01/13/17 18:26 - Constitutional Appears: Non-toxic, Cachectic, Chronically Ill - Head Exam Head Exam: NORMOCEPHALIC - Eye Exam Eye Exam: PERRL - ENT Exam ENT Exam: Mucous Membranes Dry - Neck Exam Neck Exam: absent: Lymphadenopathy - Respiratory Exam Respiratory Exam: Decreased Breath Sounds - Cardiovascular Exam Cardiovascular Exam: REGULAR RHYTHM - GI/Abdominal Exam GI & Abdominal Exam: Distended, Soft Assessment and Plan (1) Sepsis Status: Acute (2) Altered mental status Status: Acute (3) Elevated BUN Status: Acute
[2017-01-15] MEDS: Vancomycin 1 gm/NS 200 ml 1 GM/200 ML BAG IVPB SCH (12:27)
--- NOTE | 2017-01-15 14:50 | CP.CCUPN ---
<Breann Kruse E - Last Filed: 01/15/17 15:01> CCU Subjective - Physician Review Subjective (Free Text): Patient was seen and examined at bedside. Patient was alert, awake and responsive to verbal commands. Patient is currently intubated. Patient nodded "NO" to chest pain, SOB, abdominal pain, fever, chills, nausea. CCU Objective - Vital Signs / Intake & Output Vital Signs (Last 4 hours): Vital Signs Temp Pulse Resp BP Pulse Ox 01/15/17 12:03 132/81 01/15/17 12:00 98.2 F 108 H 30 H 92 L 01/15/17 11:03 110 H 32 H 134/83 96 Intake and Output (Last 8hrs): Intake & Output 01/14/17 01/15/17 01/15/17 22:59 06:59 14:59 Intake Total 490 290 563 Output Total 650 400 220 Balance -160 -110 343 Weight 135 lb Intake: Intake, IV Amount 50 50 283 Right Medial Port 50 Internal Jugular Right Proximal Port 50 283 Internal Jugular Tube Feeding 240 240 180 Other 200 100 Output: Urine 450 400 220 Urethral ([place]) 450 400 220 Stool 200 - Physical Exam Head: Positive for: Atraumatic, Normocephalic Pupils: Positive for: PERRL Extroacular Muscles: Positive for: EOMI Mouth: Positive for: Moist Mucous Membranes, Other (w/ dentures) Nose (External): Positive for: Atraumatic. Negative for: Abrasion, Contusion, Laceration Neck: Negative for: JVD, Lymphadenopathy Respiratory/Chest: Positive for: Clear to Auscultation, Other (on ventilator). Negative for: Respiratory Distress Cardiovascular: Positive for: Regular Rate and Rhythm, Normal S1, S2. Negative for: Murmurs, Tachycardic Abdomen: Positive for: Normal Bowel Sounds. Negative for: Distention Upper Extremity: Positive for: NORMAL PULSES. Negative for: Edema Lower Extremity: Positive for: NORMAL PULSES. Negative for: Edema Neurological: Negative for: Speech Normal Skin: Positive for: Warm, Normal Color Psychiatric: Positive for: Alert - Medications Active Medications: Active Medications Generic Name Dose Route Start Last Admin Trade Name Freq PRN Reason Stop Dose Admin Albuterol Sulfate 2.5 mg 01/13/17 16:00 01/15/17 11:12 Albuterol 0.083% Inhal Jeri (2.5 Mg/3 Ml) Ud INH 2.5 mg RQ4 RAUL Administration Piperacillin Sod/Tazobactam Sod 3.375 gm in 50 mls @ 100 mls/hr 01/08/17 10: 30 01/15/17 11:16 Zosyn 3.375 Gm Iv Premix IVPB 100 mls/hr Q8H RAUL Administration Fluconazole 100 mls @ 100 mls/hr 01/13/17 10:00 01/15/17 10:04 Diflucan Iv 200 Mg/100 Ml Ns IVPB 100 mls/hr DAILY RAUL Administration Vancomycin/Sodium Chloride 1 gm in 200 mls @ 133.333 mls/hr 01/15/17 12:00 12:27 Vancocin IVPB 01/20/17 12:01 133.333 mls/hr Q24H RAUL Administration Lisinopril 5 mg 01/09/17 10:00 01/15/17 10:04 Zestril PO 5 mg DAILY RAUL Administration Methylprednisolone 40 mg 01/12/17 10:00 01/15/17 10:03 Solu-Medrol IVP 40 mg Q12 RAUL Administration Pantoprazole Sodium 40 mg 01/12/17 10:15 01/15/17 10:04 Protonix Susp GT 40 mg DAILY RAUL Administration Potassium Chloride 20 meq 01/13/17 10:00 01/14/17 18:05 Potassium Chloride Oral Soln NG 20 meq BID RAUL Administration - Patient Studies Lab Studies: Microbiology Studies 01/13/17 15:30 Blood Culture - Preliminary Blood-Venous NO GROWTH AFTER 24 HOURS 01/13/17 16:00 Blood Culture - Preliminary Blood-Venous NO GROWTH AFTER 24 HOURS Lab Studies 01/15/17 01/15/17 01/15/17 Range/Units 06:24 06:24 04:59 WBC 14.9 H (4.8-10.8) K/uL RBC 2.56 L (3.80-5.20) Mil/uL Hgb 8.0 L (11.0-16.0) g/dL Hct 24.0 L (34.0-47.0) % MCV 93.7 (81.0-99.0) fL MCH 31.1 H (27.0-31.0) pg MCHC 33.2 (33.0-37.0) g/dL RDW 13.8 (11.5-14.5) % Plt Count 200 (130-400) K/uL MPV 9.3 (7.2-11.7) fL Neut % (Auto) 93.0 H (50.0-75.0) % Lymph % (Auto) 4.3 L (20.0-40.0) % [place] % (Auto) 2.5 (0.0-10.0) % Eos % (Auto) 0.1 (0.0-4.0) % Baso % (Auto) 0.1 (0.0-2.0) % Neut # 13.9 H (1.8-7.0) K/uL Lymph # 0.6 L (1.0-4.3) K/uL [place] # 0.4 (0.0-0.8) K/uL Eos # 0.0 (0.0-0.7) K/uL Baso # 0.0 (0.0-0.2) K/uL Neutrophils % (Manual) 95 H (50-75) % Lymphocytes % (Manual) 4 L (20-40) % Monocytes % (Manual) 1 (0-10) % Nucleated RBC % 3 H (0-0) % Platelet Estimate Normal (NORMAL) RBC Morphology Normal Puncture Site R rad pCO2 36 (35-45) mm/Hg pO2 57 L (80-100) mm/Hg HCO3 30.3 H (21-28) mmol/L ABG pH 7.53 H (7.35-7.45) ABG Total CO2 31.2 H (22-28) mmol/L ABG O2 Saturation 94.7 L (95-98) % ABG Base Excess 7.0 H (-2.0-3.0) mmol/L ABG Hemoglobin 9.5 L (11.7-17.4) g/dL ABG Carboxyhemoglobin 1.2 (0.5-1.5) % POC ABG HHb (Measured) 5.2 H (0.0-5.0) % ABG Methemoglobin 1.2 (0.0-3.0) % [place] Test Pos A-a O2 Difference 255.0 mm/Hg Respiratory Index 4.5 Hgb O2 Saturation 92.5 L (95.0-98.0) % Vent Mode Prvc Mechanical Rate 12 FiO2 50.0 % Tidal Volume 400 PEEP 5 Sodium 138 (132-148) mmol/L Potassium 4.1 (3.6-5.2) mmol/L Chloride 102 (98-107) mmol/L Carbon Dioxide 27 (22-30) mmol/L Anion Gap 13 (10-20) BUN 31 H (7-17) mg/dL Creatinine 0.9 (0.7-1.2) MG/DL Est GFR ( Amer) > 60 Est GFR (Non-Af Amer) > 60 Random Glucose 216 H (65-105) mg/dL Calcium 8.4 L (8.6-10.4) mg/dl Phosphorus 3.4 (2.5-4.5) mg/dL Magnesium 2.4 H (1.6-2.3) mg/dL Total Bilirubin 0.5 (0.2-1.3) mg/dL AST 25 (14-36) U/L ALT 52 (9-52) U/L Alkaline Phosphatase 59 (38-126) U/L Total Protein 5.2 L (6.3-8.3) g/dL Albumin 2.7 L (3.5-5.0) g/dL Globulin 2.5 (2.2-3.9) gm/dL Albumin/Globulin Ratio 1.1 (1.0-2.1) Laboratory Results - last 24 hr 01/15/17 01/15/17 01/15/17 04:59 06:24 06:24 WBC 14.9 H RBC 2.56 L Hgb 8.0 L Hct 24.0 L MCV 93.7 MCH 31.1 H MCHC 33.2 RDW 13.8 Plt Count 200 MPV 9.3 Neut % (Auto) 93.0 H Lymph % (Auto) 4.3 L [place] % (Auto) 2.5 Eos % (Auto) 0.1 Baso % (Auto) 0.1 Neut # 13.9 H Lymph # 0.6 L [place] # 0.4 Eos # 0.0 Baso # 0.0 Neutrophils % (Manual) 95 H Lymphocytes % (Manual) 4 L Monocytes % (Manual) 1 Nucleated RBC % 3 H Platelet Estimate Normal RBC Morphology Normal Puncture Site R rad pCO2 36 pO2 57 L HCO3 30.3 H ABG pH 7.53 H ABG Total CO2 31.2 H ABG O2 Saturation 94.7 L ABG Base Excess 7.0 H ABG Hemoglobin 9.5 L ABG Carboxyhemoglobin 1.2 POC ABG HHb (Measured) 5.2 H ABG Methemoglobin 1.2 [place] Test Pos A-a O2 Difference 255.0 Respiratory Index 4.5 Hgb O2 Saturation 92.5 L Vent Mode Prvc Mechanical Rate 12 FiO2 50.0 Tidal Volume 400 PEEP 5 Sodium 138 Potassium 4.1 Chloride 102 Carbon Dioxide 27 Anion Gap 13 BUN 31 H Creatinine 0.9 Est GFR ( Amer) > 60 Est GFR (Non-Af Amer) > 60 Random Glucose 216 H Calcium 8.4 L Phosphorus 3.4 Magnesium 2.4 H Total Bilirubin 0.5 AST 25 ALT 52 Alkaline Phosphatase 59 Total Protein 5.2 L Albumin 2.7 L Globulin 2.5 Albumin/Globulin Ratio 1.1 Review of Systems - Constitutional Constitutional: absent: Fever, Chills - EENT Ears: absent: Dizziness - Cardiovascular Cardiovascular: absent: Chest Pain, Dyspnea, Lightheadedness, Palpitations - Respiratory Respiratory: absent: Dyspnea - Gastrointestinal Gastrointestinal: absent: Abdominal Pain, Nausea, Vomiting - Neurological Neurological: absent: Dizziness, Syncope Assessment/Plan - Assessment and Plan (Free Text) Assessment: Patient is a 76 y/o female with past medical history Anemia, Anxiety, Arthritis , Cardiac Arrhythmia, COPD, Depression, HTN, Hyperlipidemia, Multiple Sclerosis , Osteoporosis, Peripheral Edema, Pulmonary Embolism, Chronic Kidney Disease, Rheumatoid Arthritis, presents with dyspnea and sepsis. Plan: Pulm: Hypercapnic respiratory failure * Intubated on 01/08/17; ET tube was advanced into the airway 1-2cm (01/15/17) * Cipap continued today * Duonebs 2.5mg RQ4 * Solu-Medrol 40mg IVP Q12H Chest X-ray (01/14/17): Lines and tubes in stable position. Moderate right pleural effusion. Confluent airspace consolidation within the right mid to lower lung zone. Prominent diffuse increased interstitial lung markings. Biapical pleural thickening with upper lobe granulomatous changes. Cardio: Diastolic heart failure * On admission, BNP: 18,200 Echo( 01/08/17): Normal LV systolic HTN: Lisinopril 5mg PO daily Lasix on hold as well as IVF fluids GI: * Elevated ALT ( Resolving) * Continue to monitor Renal: * BUN elevated, Normal Cr - BUN trending down * Continue to monitor urine output * Lasix and fluids on hold ID: Dr. Lind on board---> Help appreciated * Septic on admission: Lactate of 1.1--->1.9 with bands of 40 (Resolved) * Blood Cultures: Coagulase (-) staphylococcus (01/07/17) * Urine culture: negative * Sputum gram stain : Yeast species Current medication: * Zosyn 3.375gm IVPB Q8H * Vanco discontinued on the 01/09, restarted on Vanco 01/15/17 with a stop date of 01/20/17 * Linezolid 600mg IV Q12H (01/08/17-01/11/17) * Fluconazole 200Mg IVBP daily Neuro: * Alert, responds to verbal stimuli * Avoid narcotics and sedation medications Prophylaxis: * GI: Protonix 40mg GT daily * DVT: SCDs, anticoagulation contraindicated due to unstable H/H <Johann Davies - Last Filed: 01/15/17 16:32> CCU Objective - Vital Signs / Intake & Output Vital Signs (Last 4 hours): Vital Signs Pulse Resp BP Pulse Ox 01/15/17 15:00 100 H 16 100 01/15/17 14:03 100 H 17 140/73 85 L 01/15/17 13:03 104 H 25 H 129/81 90 L Intake and Output (Last 8hrs): Intake & Output 01/15/17 01/15/17 01/15/17 06:59 14:59 22:59 Intake Total 290 690 30 Output Total 400 240 30 Balance -110 450 0 Weight 135 lb Intake: Intake, IV Amount 50 350 Right Medial Port 50 Internal Jugular Right Proximal Port 350 Internal Jugular Tube Feeding 240 240 30 Other 100 Output: Urine 400 240 30 Urethral ([place]) 400 240 30 - Medications Active Medications: Active Medications Generic Name Dose Route Start Last Admin Trade Name Freq PRN Reason Stop Dose Admin Albuterol Sulfate 2.5 mg 01/13/17 16:00 01/15/17 16:07 Albuterol 0.083% Inhal Jeri (2.5 Mg/3 Ml) Ud INH 2.5 mg RQ4 RAUL Administration Piperacillin Sod/Tazobactam Sod 3.375 gm in 50 mls @ 100 mls/hr 01/08/17 10: 30 01/15/17 11:16 Zosyn 3.375 Gm Iv Premix IVPB 100 mls/hr Q8H RAUL Administration Fluconazole 100 mls @ 100 mls/hr 01/13/17 10:00 01/15/17 10:04 Diflucan Iv 200 Mg/100 Ml Ns IVPB 100 mls/hr DAILY RAUL Administration Vancomycin/Sodium Chloride 1 gm in 200 mls @ 133.333 mls/hr 01/15/17 12:00 12:27 Vancocin IVPB 01/20/17 12:01 133.333 mls/hr Q24H RAUL Administration Lisinopril 5 mg 01/09/17 10:00 01/15/17 10:04 Zestril PO 5 mg DAILY RAUL Administration Methylprednisolone 40 mg 01/12/17 10:00 01/15/17 10:03 Solu-Medrol IVP 40 mg Q12 RAUL Administration Pantoprazole Sodium 40 mg 01/12/17 10:15 01/15/17 10:04 Protonix Susp GT 40 mg DAILY RAUL Administration Potassium Chloride 20 meq 01/13/17 10:00 01/14/17 18:05 Potassium Chloride Oral Soln NG 20 meq BID RAUL Administration - Patient Studies Lab Studies: Microbiology Studies 01/13/17 15:30 Blood Culture - Preliminary Blood-Venous NO GROWTH AFTER 24 HOURS 01/13/17 16:00 Blood Culture - Preliminary Blood-Venous NO GROWTH AFTER 24 HOURS Lab Studies 01/15/17 01/15/17 01/15/17 Range/Units 06:24 06:24 04:59 WBC 14.9 H (4.8-10.8) K/uL RBC 2.56 L (3.80-5.20) Mil/uL Hgb 8.0 L (11.0-16.0) g/dL Hct 24.0 L (34.0-47.0) % MCV 93.7 (81.0-99.0) fL MCH 31.1 H (27.0-31.0) pg MCHC 33.2 (33.0-37.0) g/dL RDW 13.8 (11.5-14.5) % Plt Count 200 (130-400) K/uL MPV 9.3 (7.2-11.7) fL Neut % (Auto) 93.0 H (50.0-75.0) % Lymph % (Auto) 4.3 L (20.0-40.0) % [place] % (Auto) 2.5 (0.0-10.0) % Eos % (Auto) 0.1 (0.0-4.0) % Baso % (Auto) 0.1 (0.0-2.0) % Neut # 13.9 H (1.8-7.0) K/uL Lymph # 0.6 L (1.0-4.3) K/uL [place] # 0.4 (0.0-0.8) K/uL Eos # 0.0 (0.0-0.7) K/uL Baso # 0.0 (0.0-0.2) K/uL Neutrophils % (Manual) 95 H (50-75) % Lymphocytes % (Manual) 4 L (20-40) % Monocytes % (Manual) 1 (0-10) % Nucleated RBC % 3 H (0-0) % Platelet Estimate Normal (NORMAL) RBC Morphology Normal Puncture Site R rad pCO2 36 (35-45) mm/Hg pO2 57 L (80-100) mm/Hg HCO3 30.3 H (21-28) mmol/L ABG pH 7.53 H (7.35-7.45) ABG Total CO2 31.2 H (22-28) mmol/L ABG O2 Saturation 94.7 L (95-98) % ABG Base Excess 7.0 H (-2.0-3.0) mmol/L ABG Hemoglobin 9.5 L (11.7-17.4) g/dL ABG Carboxyhemoglobin 1.2 (0.5-1.5) % POC ABG HHb (Measured) 5.2 H (0.0-5.0) % ABG Methemoglobin 1.2 (0.0-3.0) % [place] Test Pos A-a O2 Difference 255.0 mm/Hg Respiratory Index 4.5 Hgb O2 Saturation 92.5 L (95.0-98.0) % Vent Mode Prvc Mechanical Rate 12 FiO2 50.0 % Tidal Volume 400 PEEP 5 Sodium 138 (132-148) mmol/L Potassium 4.1 (3.6-5.2) mmol/L Chloride 102 (98-107) mmol/L Carbon Dioxide 27 (22-30) mmol/L Anion Gap 13 (10-20) BUN 31 H (7-17) mg/dL Creatinine 0.9 (0.7-1.2) MG/DL Est GFR ( Amer) > 60 Est GFR (Non-Af Amer) > 60 Random Glucose 216 H (65-105) mg/dL Calcium 8.4 L (8.6-10.4) mg/dl Phosphorus 3.4 (2.5-4.5) mg/dL Magnesium 2.4 H (1.6-2.3) mg/dL Total Bilirubin 0.5 (0.2-1.3) mg/dL AST 25 (14-36) U/L ALT 52 (9-52) U/L Alkaline Phosphatase 59 (38-126) U/L Total Protein 5.2 L (6.3-8.3) g/dL Albumin 2.7 L (3.5-5.0) g/dL Globulin 2.5 (2.2-3.9) gm/dL Albumin/Globulin Ratio 1.1 (1.0-2.1) Laboratory Results - last 24 hr 01/15/17 01/15/17 01/15/17 04:59 06:24 06:24 WBC 14.9 H RBC 2.56 L Hgb 8.0 L Hct 24.0 L MCV 93.7 MCH 31.1 H MCHC 33.2 RDW 13.8 Plt Count 200 MPV 9.3 Neut % (Auto) 93.0 H Lymph % (Auto) 4.3 L [place] % (Auto) 2.5 Eos % (Auto) 0.1 Baso % (Auto) 0.1 Neut # 13.9 H Lymph # 0.6 L [place] # 0.4 Eos # 0.0 Baso # 0.0 Neutrophils % (Manual) 95 H Lymphocytes % (Manual) 4 L Monocytes % (Manual) 1 Nucleated RBC % 3 H Platelet Estimate Normal RBC Morphology Normal Puncture Site R rad pCO2 36 pO2 57 L HCO3 30.3 H ABG pH 7.53 H ABG Total CO2 31.2 H ABG O2 Saturation 94.7 L ABG Base Excess 7.0 H ABG Hemoglobin 9.5 L ABG Carboxyhemoglobin 1.2 POC ABG HHb (Measured) 5.2 H ABG Methemoglobin 1.2 [place] Test Pos A-a O2 Difference 255.0 Respiratory Index 4.5 Hgb O2 Saturation 92.5 L Vent Mode Prvc Mechanical Rate 12 FiO2 50.0 Tidal Volume 400 PEEP 5 Sodium 138 Potassium 4.1 Chloride 102 Carbon Dioxide 27 Anion Gap 13 BUN 31 H Creatinine 0.9 Est GFR ( Amer) > 60 Est GFR (Non-Af Amer) > 60 Random Glucose 216 H Calcium 8.4 L Phosphorus 3.4 Magnesium 2.4 H Total Bilirubin 0.5 AST 25 ALT 52 Alkaline Phosphatase 59 Total Protein 5.2 L Albumin 2.7 L Globulin 2.5 Albumin/Globulin Ratio 1.1 Attending/Attestation - Attestation I have personally seen and examined this patient.: Yes I have fully participated in the care of the patient.: Yes I have reviewed all pertinent clinical information: Yes Notes (Text): 01/15/17 16:11 Today: Sunday, January 15, 2017 The Patient was seen and examined at the bedside, Medical records reviewed, and management issues were discussed and formulated with the house staff. I have reviewed all the relevant clinical, laboratory, hemodynamic, radiographic data and medications Events reviewed Patient is a 76-year-old female with Acute Hypoxemic respiratory failure sec to exacerbation of COPD, DVT/PE and Possible pneumonia Continue current antibiotic, ID input appreciated. Unable to anticoagulate her secondary to bleeding. Weaning as tolerated will follow the patient. Wean off FIOs GI/DVT PPX Pain issues, skin care, head of the bed elevation, glycemic control were addressed. Agree with above treatment plans as transcribed in note Discussed with patients family the diagnosis, treatment plans and alternatives I concur with resident's assessment and plan of care as transcribed in Dr. Kruse note.
[2017-01-16] MEDS: Albuterol 0.083% Inhal Sol (2.5 mg/3 mL) UD INH SCH ×6 (00:48→20:43)
[2017-01-16] MEDS: Piperacill/Tazo 3.375gm in Dex 3.375 GM/50 ML BAG IVPB SCH ×3 (02:30→18:34)
[2017-01-16 06:04] LABS: ABG ALLEN TEST POS; ABG MECHANICAL RATE 14; ARTERIAL BLOOD GAS MODE PRVC; ARTERIAL BLOOD HGB O2 SAT 95.6 % (95.0-98.0); ATERIAL BLOOD GAS PEEP 5; CARBOXYHEMOGLOBIN 0.9 % (0.5-1.5); DRAW SITE R RAD; HHB 2.2 % (0.0-5.0); METHEMOGLOBIN 1.2 % (0.0-3.0)
[2017-01-16 06:17] LABS: MONO # 0.4 K/uL (0.0-0.8)
[2017-01-16 06:27] LABS: CHLORIDE 103 mmol/L (98-107); SODIUM 143 mmol/L (132-148)
[2017-01-16 06:28] LABS: POTASSIUM 3.7 mmol/L (3.6-5.2)
[2017-01-16 06:29] LABS: GFR AFRICAN-AMERICAN > 60
[2017-01-16 06:30] LABS: ALB/GLOB RATIO 1.1 (1.0-2.1); ALKALINE PHOSPHATASE 59 U/L (38-126); ALT/SGPT 52 U/L (9-52); AST/SGOT 35 U/L (14-36); BILIRUBIN,TOTAL 0.5 mg/dL (0.2-1.3); BLOOD UREA NITROGEN 30 mg/dL (7-17); CARBON DIOXIDE 23 mmol/L (22-30); GLUCOSE,RANDOM 254 mg/dL (65-105); PHOSPHOROUS 2.4 mg/dL (2.5-4.5); TOTAL PROTEIN 5.2 g/dL (6.3-8.3)
[2017-01-16 06:31] LABS: CALCIUM 8.4 mg/dl (8.6-10.4); MAGNESIUM 2.5 mg/dL (1.6-2.3)
[2017-01-16 07:12] LABS: BASO % 0.1 % (0.0-2.0); HEMATOCRIT 23.3 % (34.0-47.0); LYMPH # 0.6 K/uL (1.0-4.3); LYMPH % 4.5 % (20.0-40.0); MEAN CELL VOLUME 94.5 fL (81.0-99.0); MEAN CORPUSCULAR HEMOGLOBIN 31.2 pg (27.0-31.0); MEAN PLATELET VOLUME 9.1 fL (7.2-11.7); MONO % 2.8 % (0.0-10.0); NRBC % 0.8 % (0.0-2.0); PLATELET COUNT 286 K/uL (130-400); RED CELL DISTRIBUTION WIDTH 14.3 % (11.5-14.5)
--- NOTE | 2017-01-16 07:22 | CP.CCUPN ---
<Breann Kruse E - Last Filed: 01/16/17 15:19> CCU Subjective - Physician Review Subjective (Free Text): Patient was seen and examined at bedside. Patient was alert, awake and responsive to verbal commands. Patient is currently intubated. Patient nodded "NO" to chest pain, SOB, abdominal pain, fever, chills, nausea. Patient made hand gestures in order to explain that she would like to be extubated. Patient went through a CiPap trial yesterday but oxygen saturation decreased on CIpap. CCU Objective - Vital Signs / Intake & Output Vital Signs (Last 4 hours): Vital Signs Temp Pulse Resp BP Pulse Ox 01/16/17 07:01 89 13 115/68 98 01/16/17 05:03 98 H 18 130/63 99 01/16/17 04:03 100 H 18 137/71 97 01/16/17 04:00 98.0 F Intake and Output (Last 8hrs): Intake & Output 01/15/17 01/16/17 01/16/17 22:59 06:59 14:59 Intake Total 390 290 30 Output Total 290 240 80 Balance 100 50 -50 Intake: Intake, IV Amount 50 50 Right Medial Port 50 Internal Jugular Right Proximal Port 50 Internal Jugular Tube Feeding 240 240 30 Other 100 Output: Urine 240 240 30 Urethral ([place]) 240 240 30 Stool 50 50 - Physical Exam Head: Positive for: Atraumatic, Normocephalic Pupils: Positive for: PERRL Extroacular Muscles: Positive for: EOMI Mouth: Positive for: Moist Mucous Membranes, Other (w/ dentures) Nose (External): Positive for: Atraumatic. Negative for: Abrasion, Contusion, Laceration Neck: Negative for: JVD, Lymphadenopathy Respiratory/Chest: Positive for: Clear to Auscultation, Other (on ventilator). Negative for: Respiratory Distress Cardiovascular: Positive for: Regular Rate and Rhythm, Normal S1, S2. Negative for: Murmurs, Tachycardic Abdomen: Positive for: Normal Bowel Sounds. Negative for: Distention Upper Extremity: Positive for: NORMAL PULSES. Negative for: Edema Lower Extremity: Positive for: NORMAL PULSES. Negative for: Edema Neurological: Negative for: Speech Normal Skin: Positive for: Warm, Normal Color Psychiatric: Positive for: Alert - Medications Active Medications: Active Medications Generic Name Dose Route Start Last Admin Trade Name Tank PRN Reason Stop Dose Admin Albuterol Sulfate 2.5 mg 01/13/17 16:00 01/16/17 04:53 Albuterol 0.083% Inhal Jeri (2.5 Mg/3 Ml) Ud INH 2.5 mg RQ4 RAUL Administration Piperacillin Sod/Tazobactam Sod 3.375 gm in 50 mls @ 100 mls/hr 01/08/17 10: 30 01/16/17 02:30 Zosyn 3.375 Gm Iv Premix IVPB 100 mls/hr Q8H RAUL Administration Fluconazole 100 mls @ 100 mls/hr 01/13/17 10:00 01/15/17 10:04 Diflucan Iv 200 Mg/100 Ml Ns IVPB 100 mls/hr DAILY RAUL Administration Vancomycin/Sodium Chloride 1 gm in 200 mls @ 133.333 mls/hr 01/15/17 12:00 12:27 Vancocin IVPB 01/20/17 12:01 133.333 mls/hr Q24H RAUL Administration Lisinopril 5 mg 01/09/17 10:00 01/15/17 10:04 Zestril PO 5 mg DAILY RAUL Administration Methylprednisolone 40 mg 01/12/17 10:00 01/15/17 22:00 Solu-Medrol IVP 40 mg Q12 RAUL Administration Pantoprazole Sodium 40 mg 01/12/17 10:15 01/15/17 10:04 Protonix Susp GT 40 mg DAILY RAUL Administration Potassium Chloride 20 meq 01/13/17 10:00 01/14/17 18:05 Potassium Chloride Oral Soln NG 20 meq BID RAUL Administration - Patient Studies Lab Studies: Microbiology Studies 01/13/17 15:30 Blood Culture - Preliminary Blood-Venous NO GROWTH AFTER 48 HOURS 01/13/17 16:00 Blood Culture - Preliminary Blood-Venous NO GROWTH AFTER 48 HOURS Lab Studies 01/16/17 01/16/17 01/16/17 Range/Units 06:08 06:08 05:26 WBC 14.0 H (4.8-10.8) K/uL RBC 2.46 L (3.80-5.20) Mil/uL Hgb 7.7 L (11.0-16.0) g/dL Hct 23.3 L (34.0-47.0) % MCV 94.5 (81.0-99.0) fL MCH 31.2 H (27.0-31.0) pg MCHC 33.0 (33.0-37.0) g/dL RDW 14.3 (11.5-14.5) % Plt Count 286 (130-400) K/uL MPV 9.1 (7.2-11.7) fL Neut % (Auto) 92.6 H (50.0-75.0) % Lymph % (Auto) 4.5 L (20.0-40.0) % Bill[place] % (Auto) 2.8 (0.0-10.0) % Eos % (Auto) 0.0 (0.0-4.0) % Baso % (Auto) 0.1 (0.0-2.0) % Neut # 13.0 H (1.8-7.0) K/uL Lymph # 0.6 L (1.0-4.3) K/uL Billings # 0.4 (0.0-0.8) K/uL Eos # 0.0 (0.0-0.7) K/uL Baso # 0.0 (0.0-0.2) K/uL Neutrophils % (Manual) (50-75) % Lymphocytes % (Manual) (20-40) % Monocytes % (Manual) (0-10) % Nucleated RBC % (0-0) % Platelet Estimate (NORMAL) RBC Morphology Puncture Site R rad pCO2 33 L (35-45) mm/Hg pO2 77 L (80-100) mm/Hg HCO3 27.5 (21-28) mmol/L ABG pH 7.51 H (7.35-7.45) ABG Total CO2 27.3 (22-28) mmol/L ABG O2 Saturation 97.8 (95-98) % ABG Base Excess 3.3 H (-2.0-3.0) mmol/L ABG Hemoglobin 9.1 L (11.7-17.4) g/dL ABG Carboxyhemoglobin 0.9 (0.5-1.5) % POC ABG HHb (Measured) 2.2 (0.0-5.0) % ABG Methemoglobin 1.2 (0.0-3.0) % Jose Maria Test Pos A-a O2 Difference 310.0 mm/Hg Respiratory Index 4.0 Hgb O2 Saturation 95.6 (95.0-98.0) % Vent Mode Prvc Mechanical Rate 14 FiO2 60.0 % Tidal Volume 400 PEEP 5 Sodium 143 (132-148) mmol/L Potassium 3.7 (3.6-5.2) mmol/L Chloride 103 (98-107) mmol/L Carbon Dioxide 23 (22-30) mmol/L Anion Gap 20 (10-20) BUN 30 H (7-17) mg/dL Creatinine 0.7 (0.7-1.2) MG/DL Est GFR ( Amer) > 60 Est GFR (Non-Af Amer) > 60 Random Glucose 254 H (65-105) mg/dL Calcium 8.4 L (8.6-10.4) mg/dl Phosphorus 2.4 L (2.5-4.5) mg/dL Magnesium 2.5 H (1.6-2.3) mg/dL Total Bilirubin 0.5 (0.2-1.3) mg/dL AST 35 (14-36) U/L ALT 52 (9-52) U/L Alkaline Phosphatase 59 (38-126) U/L Total Protein 5.2 L (6.3-8.3) g/dL Albumin 2.8 L (3.5-5.0) g/dL Globulin 2.5 (2.2-3.9) gm/dL Albumin/Globulin Ratio 1.1 (1.0-2.1) 01/15/17 Range/Units 06:24 WBC (4.8-10.8) K/uL RBC (3.80-5.20) Mil/uL Hgb (11.0-16.0) g/dL Hct (34.0-47.0) % MCV (81.0-99.0) fL MCH (27.0-31.0) pg MCHC (33.0-37.0) g/dL RDW (11.5-14.5) % Plt Count (130-400) K/uL MPV (7.2-11.7) fL Neut % (Auto) (50.0-75.0) % Lymph % (Auto) (20.0-40.0) % Bill[place] % (Auto) (0.0-10.0) % Eos % (Auto) (0.0-4.0) % Baso % (Auto) (0.0-2.0) % Neut # (1.8-7.0) K/uL Lymph # (1.0-4.3) K/uL Bill[place] # (0.0-0.8) K/uL Eos # (0.0-0.7) K/uL Baso # (0.0-0.2) K/uL Neutrophils % (Manual) 95 H (50-75) % Lymphocytes % (Manual) 4 L (20-40) % Monocytes % (Manual) 1 (0-10) % Nucleated RBC % 3 H (0-0) % Platelet Estimate Normal (NORMAL) RBC Morphology Normal Puncture Site pCO2 (35-45) mm/Hg pO2 (80-100) mm/Hg HCO3 (21-28) mmol/L ABG pH (7.35-7.45) ABG Total CO2 (22-28) mmol/L ABG O2 Saturation (95-98) % ABG Base Excess (-2.0-3.0) mmol/L ABG Hemoglobin (11.7-17.4) g/dL ABG Carboxyhemoglobin (0.5-1.5) % POC ABG HHb (Measured) (0.0-5.0) % ABG Methemoglobin (0.0-3.0) % Jose Maria Test A-a O2 Difference mm/Hg Respiratory Index Hgb O2 Saturation (95.0-98.0) % Vent Mode Mechanical Rate FiO2 % Tidal Volume PEEP Sodium (132-148) mmol/L Potassium (3.6-5.2) mmol/L Chloride (98-107) mmol/L Carbon Dioxide (22-30) mmol/L Anion Gap (10-20) BUN (7-17) mg/dL Creatinine (0.7-1.2) MG/DL Est GFR ( Amer) Est GFR (Non-Af Amer) Random Glucose (65-105) mg/dL Calcium (8.6-10.4) mg/dl Phosphorus (2.5-4.5) mg/dL Magnesium (1.6-2.3) mg/dL Total Bilirubin (0.2-1.3) mg/dL AST (14-36) U/L ALT (9-52) U/L Alkaline Phosphatase (38-126) U/L Total Protein (6.3-8.3) g/dL Albumin (3.5-5.0) g/dL Globulin (2.2-3.9) gm/dL Albumin/Globulin Ratio (1.0-2.1) Laboratory Results - last 24 hr 01/15/17 01/16/17 01/16/17 06:24 05:26 06:08 WBC 14.0 H RBC 2.46 L Hgb 7.7 L Hct 23.3 L MCV 94.5 MCH 31.2 H MCHC 33.0 RDW 14.3 Plt Count 286 MPV 9.1 Neut % (Auto) 92.6 H Lymph % (Auto) 4.5 L [place] % (Auto) 2.8 Eos % (Auto) 0.0 Baso % (Auto) 0.1 Neut # 13.0 H Lymph # 0.6 L Bill[place] # 0.4 Eos # 0.0 Baso # 0.0 Neutrophils % (Manual) 95 H Lymphocytes % (Manual) 4 L Monocytes % (Manual) 1 Nucleated RBC % 3 H Platelet Estimate Normal RBC Morphology Normal Puncture Site R rad pCO2 33 L pO2 77 L HCO3 27.5 ABG pH 7.51 H ABG Total CO2 27.3 ABG O2 Saturation 97.8 ABG Base Excess 3.3 H ABG Hemoglobin 9.1 L ABG Carboxyhemoglobin 0.9 POC ABG HHb (Measured) 2.2 ABG Methemoglobin 1.2 Jose Maria Test Pos A-a O2 Difference 310.0 Respiratory Index 4.0 Hgb O2 Saturation 95.6 Vent Mode Prvc Mechanical Rate 14 FiO2 60.0 Tidal Volume 400 PEEP 5 Sodium Potassium Chloride Carbon Dioxide Anion Gap BUN Creatinine Est GFR ( Amer) Est GFR (Non-Af Amer) Random Glucose Calcium Phosphorus Magnesium Total Bilirubin AST ALT Alkaline Phosphatase Total Protein Albumin Globulin Albumin/Globulin Ratio 01/16/17 06:08 WBC RBC Hgb Hct MCV MCH MCHC RDW Plt Count MPV Neut % (Auto) Lymph % (Auto) [place] % (Auto) Eos % (Auto) Baso % (Auto) Neut # Lymph # [place] # Eos # Baso # Neutrophils % (Manual) Lymphocytes % (Manual) Monocytes % (Manual) Nucleated RBC % Platelet Estimate RBC Morphology Puncture Site pCO2 pO2 HCO3 ABG pH ABG Total CO2 ABG O2 Saturation ABG Base Excess ABG Hemoglobin ABG Carboxyhemoglobin POC ABG HHb (Measured) ABG Methemoglobin Jose Maria Test A-a O2 Difference Respiratory Index Hgb O2 Saturation Vent Mode Mechanical Rate FiO2 Tidal Volume PEEP Sodium 143 Potassium 3.7 Chloride 103 Carbon Dioxide 23 Anion Gap 20 BUN 30 H Creatinine 0.7 Est GFR ( Amer) > 60 Est GFR (Non-Af Amer) > 60 Random Glucose 254 H Calcium 8.4 L Phosphorus 2.4 L Magnesium 2.5 H Total Bilirubin 0.5 AST 35 ALT 52 Alkaline Phosphatase 59 Total Protein 5.2 L Albumin 2.8 L Globulin 2.5 Albumin/Globulin Ratio 1.1 Review of Systems - Constitutional Constitutional: absent: Fever, Chills - EENT Ears: absent: Dizziness - Cardiovascular Cardiovascular: absent: Chest Pain, Lightheadedness, Palpitations - Gastrointestinal Gastrointestinal: absent: Abdominal Pain, Cramping - Musculoskeletal Musculoskeletal: absent: Numbness, Tingling - Neurological Neurological: absent: Tingling, Weakness - Endocrine Endocrine: absent: Palpitations Assessment/Plan - Assessment and Plan (Free Text) Assessment: Patient is a 76 y/o female with past medical history Anemia, Anxiety, Arthritis , Cardiac Arrhythmia, COPD, Depression, HTN, Hyperlipidemia, Multiple Sclerosis , Osteoporosis, Peripheral Edema, Pulmonary Embolism, Chronic Kidney Disease, Rheumatoid Arthritis, presents with dyspnea and sepsis Plan: Pulm: Hypercapnic respiratory failure * Intubated on 01/08/17; ET tube was advanced into the airway 1-2cm (01/15/17) * Cipap continued today * Duonebs 2.5mg RQ4 * Solu-Medrol 40mg IVP Q12H Chest X-ray (01/14/17): Lines and tubes in stable position. Moderate right pleural effusion. Confluent airspace consolidation within the right mid to lower lung zone. Prominent diffuse increased interstitial lung markings. Biapical pleural thickening with upper lobe granulomatous changes. (01/15/17) Cipap trial yesterday: Oxygen saturation at 88, therefore patient was not extubated. (01/16/17) Cipap trial was started today at 10:30am and patient has been tolerable with an oxygen saturation of 95%. We continue to monitor on CiPap Cardio: Diastolic heart failure * On admission, BNP: 18,200 Echo(01/08/17): Normal LV systolic HTN: Lisinopril 5mg PO daily Lasix on hold as well as IVF fluids GI: * Elevated ALT (Resolving) * Continue to monitor Renal: * BUN elevated, Normal Cr - BUN trending down * Continue to monitor urine output * Lasix and fluids on hold Heme: GI Consult, Dr. Farris H/H: 7.7/23.3 Continue to monitor ID: Dr. Lind on board---> Help appreciated * Septic on admission: Lactate of 1.1--->1.9 with bands of 40 (Resolved) * Blood Cultures: Coagulase (-) staphylococcus (01/07/17) * Urine culture: negative * Sputum gram stain : Yeast species Current medication: * Zosyn 3.375gm IVPB Q8H * Vanco discontinued on the 01/09, restarted on Vanco 01/15/17 with a stop date of 01/20/17 * Linezolid 600mg IV Q12H (01/08/17-01/11/17) * Fluconazole 200Mg IVBP daily Neuro: * Alert, responds to verbal stimuli * Avoid narcotics and sedation medications Prophylaxis: * GI: Protonix 40mg IV daily, Sucralfate 30ml Soln Q6H * DVT: SCDs, anticoagulation contraindicated due to unstable H/H <Davion Asif P - Last Filed: 01/16/17 17:50> CCU Objective - Vital Signs / Intake & Output Vital Signs (Last 4 hours): Vital Signs Temp Pulse Resp BP Pulse Ox 01/16/17 17:03 114 H 31 H 115/62 100 01/16/17 16:03 99 H 25 H 111/65 100 01/16/17 16:00 97.4 F L 01/16/17 15:03 95 H 27 H 122/73 100 01/16/17 14:03 89 25 H 133/63 100 01/16/17 14:00 88 28 H 97 Intake and Output (Last 8hrs): Intake & Output 01/16/17 01/16/17 01/16/17 06:59 14:59 22:59 Intake Total 290 590 90 Output Total 240 505 100 Balance 50 85 -10 Weight 136 lb Intake: Intake, IV Amount 50 350 Right Medial Port 50 350 Internal Jugular Tube Feeding 240 240 90 Output: Urine 240 260 70 Urethral ([place]) 240 260 70 Stool 245 30 - Medications Active Medications: Active Medications Generic Name Dose Route Start Last Admin Trade Name Tank PRN Reason Stop Dose Admin Albuterol Sulfate 2.5 mg 01/13/17 16:00 01/16/17 16:22 Albuterol 0.083% Inhal Jeri (2.5 Mg/3 Ml) Ud INH 2.5 mg RQ4 RAUL Administration Piperacillin Sod/Tazobactam Sod 3.375 gm in 50 mls @ 100 mls/hr 01/08/17 10: 30 01/16/17 11:15 Zosyn 3.375 Gm Iv Premix IVPB 100 mls/hr Q8H RAUL Administration Fluconazole 100 mls @ 100 mls/hr 01/13/17 10:00 01/16/17 10:06 Diflucan Iv 200 Mg/100 Ml Ns IVPB 100 mls/hr DAILY RAUL Administration Vancomycin/Sodium Chloride 1 gm in 200 mls @ 133.333 mls/hr 01/15/17 12:00 12:01 Vancocin IVPB 01/20/17 12:01 133.333 mls/hr Q24H RAUL Administration Insulin Aspart 0 unit 01/16/17 18:00 Novolog SC Q6H [facility] Protocol Lisinopril 5 mg 01/09/17 10:00 01/16/17 10:06 Zestril PO 5 mg DAILY RAUL Administration Methylprednisolone 40 mg 01/12/17 10:00 01/16/17 10:06 Solu-Medrol IVP 40 mg Q12 RAUL Administration Pantoprazole Sodium 40 mg 01/16/17 10:45 01/16/17 11:16 Protonix Inj IVP Not Given Q12 RAUL Potassium Chloride 20 meq 01/13/17 10:00 01/14/17 18:05 Potassium Chloride Oral Soln NG 20 meq BID RAUL Administration Sucralfate 1 gm 01/16/17 10:45 01/16/17 12:00 Carafate Oral Susp PO Not Given Q6 RAUL - Patient Studies Lab Studies: Microbiology Studies 01/13/17 15:30 Blood Culture - Preliminary Blood-Venous NO GROWTH AFTER 3 DAYS 01/13/17 16:00 Blood Culture - Preliminary Blood-Venous NO GROWTH AFTER 3 DAYS Lab Studies 01/16/17 01/16/17 01/16/17 Range/Units 12:08 06:08 06:08 WBC 14.0 H (4.8-10.8) K/uL RBC 2.46 L (3.80-5.20) Mil/uL Hgb 7.7 L (11.0-16.0) g/dL Hct 23.3 L (34.0-47.0) % MCV 94.5 (81.0-99.0) fL MCH 31.2 H (27.0-31.0) pg MCHC 33.0 (33.0-37.0) g/dL RDW 14.3 (11.5-14.5) % Plt Count 286 (130-400) K/uL MPV 9.1 (7.2-11.7) fL Neut % (Auto) 92.6 H (50.0-75.0) % Lymph % (Auto) 4.5 L (20.0-40.0) % [place] % (Auto) 2.8 (0.0-10.0) % Eos % (Auto) 0.0 (0.0-4.0) % Baso % (Auto) 0.1 (0.0-2.0) % Neut # 13.0 H (1.8-7.0) K/uL Lymph # 0.6 L (1.0-4.3) K/uL Bill[place] # 0.4 (0.0-0.8) K/uL Eos # 0.0 (0.0-0.7) K/uL Baso # 0.0 (0.0-0.2) K/uL Neutrophils % (Manual) 93 H (50-75) % Lymphocytes % (Manual) 5 L (20-40) % Monocytes % (Manual) 2 (0-10) % Nucleated RBC % 1 H (0-0) % Platelet Estimate Normal (NORMAL) Polychromasia Slight Hypochromasia (manual) Slight Puncture Site pCO2 (35-45) mm/Hg pO2 (80-100) mm/Hg HCO3 (21-28) mmol/L ABG pH (7.35-7.45) ABG Total CO2 (22-28) mmol/L ABG O2 Saturation (95-98) % ABG Base Excess (-2.0-3.0) mmol/L ABG Hemoglobin (11.7-17.4) g/dL ABG Carboxyhemoglobin (0.5-1.5) % POC ABG HHb (Measured) (0.0-5.0) % ABG Methemoglobin (0.0-3.0) % Jose Maria Test A-a O2 Difference mm/Hg Respiratory Index Hgb O2 Saturation (95.0-98.0) % Vent Mode Mechanical Rate FiO2 % Tidal Volume PEEP Sodium 143 (132-148) mmol/L Potassium 3.7 (3.6-5.2) mmol/L Chloride 103 (98-107) mmol/L Carbon Dioxide 23 (22-30) mmol/L Anion Gap 20 (10-20) BUN 30 H (7-17) mg/dL Creatinine 0.7 (0.7-1.2) MG/DL Est GFR ( Amer) > 60 Est GFR (Non-Af Amer) > 60 POC Glucose (mg/dL) 335 H (65-110) mg/dL Random Glucose 254 H (65-105) mg/dL Calcium 8.4 L (8.6-10.4) mg/dl Phosphorus 2.4 L (2.5-4.5) mg/dL Magnesium 2.5 H (1.6-2.3) mg/dL Total Bilirubin 0.5 (0.2-1.3) mg/dL AST 35 (14-36) U/L ALT 52 (9-52) U/L Alkaline Phosphatase 59 (38-126) U/L Total Protein 5.2 L (6.3-8.3) g/dL Albumin 2.8 L (3.5-5.0) g/dL Globulin 2.5 (2.2-3.9) gm/dL Albumin/Globulin Ratio 1.1 (1.0-2.1) 01/16/17 Range/Units 05:26 WBC (4.8-10.8) K/uL RBC (3.80-5.20) Mil/uL Hgb (11.0-16.0) g/dL Hct (34.0-47.0) % MCV (81.0-99.0) fL MCH (27.0-31.0) pg MCHC (33.0-37.0) g/dL RDW (11.5-14.5) % Plt Count (130-400) K/uL MPV (7.2-11.7) fL Neut % (Auto) (50.0-75.0) % Lymph % (Auto) (20.0-40.0) % Bill[place] % (Auto) (0.0-10.0) % Eos % (Auto) (0.0-4.0) % Baso % (Auto) (0.0-2.0) % Neut # (1.8-7.0) K/uL Lymph # (1.0-4.3) K/uL Billings # (0.0-0.8) K/uL Eos # (0.0-0.7) K/uL Baso # (0.0-0.2) K/uL Neutrophils % (Manual) (50-75) % Lymphocytes % (Manual) (20-40) % Monocytes % (Manual) (0-10) % Nucleated RBC % (0-0) % Platelet Estimate (NORMAL) Polychromasia Hypochromasia (manual) Puncture Site R rad pCO2 33 L (35-45) mm/Hg pO2 77 L (80-100) mm/Hg HCO3 27.5 (21-28) mmol/L ABG pH 7.51 H (7.35-7.45) ABG Total CO2 27.3 (22-28) mmol/L ABG O2 Saturation 97.8 (95-98) % ABG Base Excess 3.3 H (-2.0-3.0) mmol/L ABG Hemoglobin 9.1 L (11.7-17.4) g/dL ABG Carboxyhemoglobin 0.9 (0.5-1.5) % POC ABG HHb (Measured) 2.2 (0.0-5.0) % ABG Methemoglobin 1.2 (0.0-3.0) % Jose Maria Test Pos A-a O2 Difference 310.0 mm/Hg Respiratory Index 4.0 Hgb O2 Saturation 95.6 (95.0-98.0) % Vent Mode Prvc Mechanical Rate 14 FiO2 60.0 % Tidal Volume 400 PEEP 5 Sodium (132-148) mmol/L Potassium (3.6-5.2) mmol/L Chloride (98-107) mmol/L Carbon Dioxide (22-30) mmol/L Anion Gap (10-20) BUN (7-17) mg/dL Creatinine (0.7-1.2) MG/DL Est GFR ( Amer) Est GFR (Non-Af Amer) POC Glucose (mg/dL) (65-110) mg/dL Random Glucose (65-105) mg/dL Calcium (8.6-10.4) mg/dl Phosphorus (2.5-4.5) mg/dL Magnesium (1.6-2.3) mg/dL Total Bilirubin (0.2-1.3) mg/dL AST (14-36) U/L ALT (9-52) U/L Alkaline Phosphatase (38-126) U/L Total Protein (6.3-8.3) g/dL Albumin (3.5-5.0) g/dL Globulin (2.2-3.9) gm/dL Albumin/Globulin Ratio (1.0-2.1) Laboratory Results - last 24 hr 01/16/17 01/16/17 01/16/17 05:26 06:08 06:08 WBC 14.0 H RBC 2.46 L Hgb 7.7 L Hct 23.3 L MCV 94.5 MCH 31.2 H MCHC 33.0 RDW 14.3 Plt Count 286 MPV 9.1 Neut % (Auto) 92.6 H Lymph % (Auto) 4.5 L [place] % (Auto) 2.8 Eos % (Auto) 0.0 Baso % (Auto) 0.1 Neut # 13.0 H Lymph # 0.6 L Billings # 0.4 Eos # 0.0 Baso # 0.0 Neutrophils % (Manual) 93 H Lymphocytes % (Manual) 5 L Monocytes % (Manual) 2 Nucleated RBC % 1 H Platelet Estimate Normal Polychromasia Slight Hypochromasia (manual) Slight Puncture Site R rad pCO2 33 L pO2 77 L HCO3 27.5 ABG pH 7.51 H ABG Total CO2 27.3 ABG O2 Saturation 97.8 ABG Base Excess 3.3 H ABG Hemoglobin 9.1 L ABG Carboxyhemoglobin 0.9 POC ABG HHb (Measured) 2.2 ABG Methemoglobin 1.2 Jose Maria Test Pos A-a O2 Difference 310.0 Respiratory Index 4.0 Hgb O2 Saturation 95.6 Vent Mode Prvc Mechanical Rate 14 FiO2 60.0 Tidal Volume 400 PEEP 5 Sodium 143 Potassium 3.7 Chloride 103 Carbon Dioxide 23 Anion Gap 20 BUN 30 H Creatinine 0.7 Est GFR ( Amer) > 60 Est GFR (Non-Af Amer) > 60 POC Glucose (mg/dL) Random Glucose 254 H Calcium 8.4 L Phosphorus 2.4 L Magnesium 2.5 H Total Bilirubin 0.5 AST 35 ALT 52 Alkaline Phosphatase 59 Total Protein 5.2 L Albumin 2.8 L Globulin 2.5 Albumin/Globulin Ratio 1.1 01/16/17 12:08 WBC RBC Hgb Hct MCV MCH MCHC RDW Plt Count MPV Neut % (Auto) Lymph % (Auto) Bill[place] % (Auto) Eos % (Auto) Baso % (Auto) Neut # Lymph # Bill[place] # Eos # Baso # Neutrophils % (Manual) Lymphocytes % (Manual) Monocytes % (Manual) Nucleated RBC % Platelet Estimate Polychromasia Hypochromasia (manual) Puncture Site pCO2 pO2 HCO3 ABG pH ABG Total CO2 ABG O2 Saturation ABG Base Excess ABG Hemoglobin ABG Carboxyhemoglobin POC ABG HHb (Measured) ABG Methemoglobin Jose Maria Test A-a O2 Difference Respiratory Index Hgb O2 Saturation Vent Mode Mechanical Rate FiO2 Tidal Volume PEEP Sodium Potassium Chloride Carbon Dioxide Anion Gap BUN Creatinine Est GFR ( Amer) Est GFR (Non-Af Amer) POC Glucose (mg/dL) 335 H Random Glucose Calcium Phosphorus Magnesium Total Bilirubin AST ALT Alkaline Phosphatase Total Protein Albumin Globulin Albumin/Globulin Ratio Attending/Attestation - Attestation I have personally seen and examined this patient.: Yes I have fully participated in the care of the patient.: Yes I have reviewed all pertinent clinical information: Yes Notes (Text): 01/16/17 17:45 No new events today Patients PO2 still low despite lungs clearing, continued drop in hemoglobin noticed, stool had black fluid mixed with stool suggesting melena, patient continues to be on zosyn, vancomycin, diflucan, off anticoagulation due to drop in hemoglobin. Patient is still alert, oriented. Solumedrol stopped, protonix increased 40mg q12, added sucralfate, gi consult. CTA PE study and abd/pelvis ct with iv contrast.
[2017-01-16 08:35] LABS: NEUTROPHIL 93 % (50-75); NUCLEATED RED BLOOD CELL 1 % (0-0); TOTAL CELLS COUNTED 100
[2017-01-16] MEDS: Pantoprazole 40 mg Susp UD GT SCH (10:06)
[2017-01-16] MEDS: MethylPREDNISolone 40 mg Vial IVP SCH (10:06)
[2017-01-16] MEDS: Fluconazole IV 200mg/100 ml NS 100 ML IVPB SCH (10:06)
--- NOTE | 2017-01-16 10:46 | CP.PCM.PN ---
<Neil Bui - Last Filed: 01/16/17 10:43> Subjective - Date & Time of Evaluation Date of Evaluation: 01/16/17 Time of Evaluation: 07:41 - Subjective Subjective: Cardiology Progress Note- Dr. Danielson's service Pt seen and examined. Patient intubated but off sedation. Patient has been undergoing CPAP trials with marginal success. Patient desaturated yesterday and thus remains vented. Patient able to nod to ROS. She denies chest pain, dyspnea , subjective fevers or chills at this time. Objective - Vital Signs/Intake and Output Vital Signs (last 24 hours): Temp Pulse Resp BP Pulse Ox 98.0 F 89 13 115/68 98 01/16/17 04:00 01/16/17 07:01 01/16/17 07:01 01/16/17 07:01 01/16/17 07:01 Intake and Output: 01/16/17 01/16/17 06:59 18:59 Intake Total 410 30 Output Total 360 80 Balance 50 -50 - Medications Medications: Current Medications Albuterol Sulfate (Albuterol 0.083% Inhal Jeri (2.5 Mg/3 Ml) Ud) 2.5 mg INH RQ4 [facility] Last Admin: 01/16/17 08:20 Dose: 2.5 mg Piperacillin Sod/Tazobactam Sod (Zosyn 3.375 Gm Iv Premix) 3.375 gm in 50 mls @ 100 mls/hr IVPB Q8H [facility] Last Admin: 01/16/17 02:30 Dose: 100 mls/hr Fluconazole (Diflucan Iv 200 Mg/100 Ml Ns) 100 mls @ 100 mls/hr IVPB DAILY [facility] Last Admin: 01/16/17 10:06 Dose: 100 mls/hr Vancomycin/Sodium Chloride (Vancocin) 1 gm in 200 mls @ 133.333 mls/hr IVPB Q24H [facility] Stop: 01/20/17 12:01 Last Admin: 01/15/17 12:27 Dose: 133.333 mls/hr Insulin Aspart (Novolog) 0 unit SC ACHS [facility] PRN Reason: Protocol Lisinopril (Zestril) 5 mg PO DAILY [facility] Last Admin: 01/16/17 10:06 Dose: 5 mg Methylprednisolone (Solu-Medrol) 40 mg IVP Q12 [facility] Last Admin: 01/16/17 10:06 Dose: 40 mg Pantoprazole Sodium (Protonix Inj) 40 mg IVP Q12H [facility] Potassium Chloride (Potassium Chloride Oral Soln) 20 meq NG BID [facility] Last Admin: 01/14/17 18:05 Dose: 20 meq Sucralfate (Carafate Oral Susp) 1 gm PO Q6H [facility] - Labs Labs: 01/16/17 06:08 01/16/17 06:08 PT 10.6 SECONDS (9.7-12.2) 01/13/17 18:26 INR 1.0 01/13/17 18:26 APTT 24 SECONDS (21-34) 01/13/17 18:26 - Constitutional Appears: Non-toxic, No Acute Distress - Head Exam Head Exam: ATRAUMATIC, NORMAL INSPECTION, NORMOCEPHALIC - Eye Exam Eye Exam: EOMI - Neck Exam Neck Exam: Full ROM - Respiratory Exam Respiratory Exam: Decreased Breath Sounds, NORMAL BREATHING PATTERN - Cardiovascular Exam Cardiovascular Exam: +S1, +S2 - GI/Abdominal Exam GI & Abdominal Exam: Soft, Normal Bowel Sounds - Extremities Exam Extremities Exam: Full ROM, Pedal Edema (UE and LE edema). absent: Tenderness - Neurological Exam Neurological Exam: Awake - Psychiatric Exam Psychiatric exam: Flat Affect - Skin Skin Exam: Dry Additional comments: ecchymosis on left hand noted Assessment and Plan - Assessment and Plan (Free Text) Assessment: CHF -BNP 37165 -Echo: Normal EF, mild pulmonary hypertension -Lasix 40mg IV held by primary due to episodes of hypotension. -Monitor Daily weight and I&Os HTN -Continue Lisinopril 5mg -Hold parameters in place for hypotension History of PE -Lovenox SC held due to bleeding from ET tube Hyperlipidemia -Patient would benefit from Crestor Prophylactic Measure -Anticoagulation held due to bleeding from ET tube -PPI 40 mg IV Q12 Discussed with attending. Management and planning per Dr. Danielson <Florentino Danielson - Last Filed: 01/17/17 21:32> Objective - Vital Signs/Intake and Output Vital Signs (last 24 hours): Temp Pulse Resp BP Pulse Ox 97.3 F L 69 25 H 113/63 100 01/17/17 20:00 01/17/17 20:15 01/17/17 20:15 01/17/17 20:15 01/17/17 20:15 Intake and Output: 01/17/17 01/18/17 18:59 06:59 Intake Total 1753 Output Total 380 Balance 1373 - Medications Medications: Current Medications Albuterol Sulfate (Albuterol 0.083% Inhal Jeri (2.5 Mg/3 Ml) Ud) 2.5 mg INH RQ4 [facility] Last Admin: 01/17/17 20:20 Dose: 2.5 mg Piperacillin Sod/Tazobactam Sod (Zosyn 3.375 Gm Iv Premix) 3.375 gm in 50 mls @ 100 mls/hr IVPB Q8H [facility] Last Admin: 01/17/17 18:09 Dose: 100 mls/hr Fluconazole (Diflucan Iv 200 Mg/100 Ml Ns) 100 mls @ 100 mls/hr IVPB DAILY [facility] Last Admin: 01/17/17 10:35 Dose: 100 mls/hr Vancomycin/Sodium Chloride (Vancocin) 1 gm in 200 mls @ 133.333 mls/hr IVPB Q24H [facility] Stop: 01/20/17 12:01 Last Admin: 01/17/17 12:08 Dose: 133.333 mls/hr Insulin Aspart (Novolog) 0 unit SC Q6H [facility] PRN Reason: Protocol Last Admin: 01/17/17 18:16 Dose: 2 unit Lisinopril (Zestril) 5 mg PO DAILY [facility] Last Admin: 01/17/17 10:36 Dose: 5 mg Methylprednisolone (Solu-Medrol) 20 mg IVP Q12 [facility] Last Admin: 01/17/17 21:05 Dose: 20 mg Pantoprazole Sodium (Protonix Inj) 40 mg IVP Q12 [facility] Last Admin: 01/17/17 10:35 Dose: 40 mg Potassium Chloride (Potassium Chloride Oral Soln) 20 meq NG BID [facility] Last Admin: 01/17/17 18:07 Dose: Not Given Sucralfate (Carafate Oral Susp) 1 gm PO Q6 [facility] Last Admin: 01/17/17 18:07 Dose: Not Given - Labs Labs: 01/17/17 12:00 01/17/17 06:19 PT 10.6 SECONDS (9.7-12.2) 01/13/17 18:26 INR 1.0 01/13/17 18:26 APTT 24 SECONDS (21-34) 01/13/17 18:26 Assessment and Plan - Assessment and Plan (Free Text) Plan: Patient seen and evaluated with the medical cost consultant Plan of care as documented
[2017-01-16] MEDS: Sucralfate 1 gm/10 ml Oral Susp UD PO SCH ×4 (11:20→23:33)
[2017-01-16] MEDS ORDERED: (Novolog) Insulin Aspart, Recombinant 100 u/ml 10 ml vial SC SCH (11:30)
[2017-01-16] MEDS: Vancomycin 1 gm/NS 200 ml 1 GM/200 ML BAG IVPB SCH (12:01)
--- NOTE | 2017-01-16 12:25 | RAD ---
HISTORY: Intubated. Technique: Single view portable semi erect @ 18:33. COMPARISON: Multiple serial examinations preceding the most recent study: January 15, 2017. 07:12 employing similar technique. FINDINGS: LUNGS: No significant interval change compared to the prior examination(s). PLEURA: No significant pleural effusion identified, no pneumothorax apparent. CARDIOVASCULAR: No radiographic findings to suggest acute or significant cardiovascular disease. OSSEOUS STRUCTURES: No significant abnormalities. VISUALIZED UPPER ABDOMEN: Normal. OTHER FINDINGS: Stable, satisfactory position ventilatory, vascular and nasogastric apparatus IMPRESSION: No significant interval change compared to the prior examination(s). No new/ acute findings identified. Stable position of support apparatus.
--- NOTE | 2017-01-16 12:27 | RAD ---
HISTORY: Intubation. COMPARISON: Multiple serial examinations preceding the most recent study: January 15, 2017. FINDINGS: LUNGS: Consolidative changes left lower lobe. These are stable. PLEURA: No appreciable pleural effusion identified. CARDIOVASCULAR: No radiographic findings to suggest acute or significant cardiovascular disease. OSSEOUS STRUCTURES: No significant abnormalities. VISUALIZED UPPER ABDOMEN: Normal. OTHER FINDINGS: Stable position of endotracheal tube, the tip is within 1 cm of the janelle. Stable position of vascular and nasogastric devices. IMPRESSION: No significant interval change compared to the prior examination(s).
--- NOTE | 2017-01-16 14:36 | CP.PCM.PN ---
Subjective - Date & Time of Evaluation Date of Evaluation: 01/16/17 Time of Evaluation: 10:00 - Subjective Subjective: remains vented iv rx in progress Objective - Vital Signs/Intake and Output Vital Signs (last 24 hours): Temp Pulse Resp BP Pulse Ox 98.6 F 93 H 22 121/58 L 94 L 01/16/17 12:00 01/16/17 13:03 01/16/17 13:03 01/16/17 13:03 01/16/17 13:03 Intake and Output: 01/16/17 01/16/17 06:59 18:59 Intake Total 410 560 Output Total 360 485 Balance 50 75 - Medications Medications: Current Medications Albuterol Sulfate (Albuterol 0.083% Inhal Jeri (2.5 Mg/3 Ml) Ud) 2.5 mg INH RQ4 [facility] Last Admin: 01/16/17 11:41 Dose: 2.5 mg Piperacillin Sod/Tazobactam Sod (Zosyn 3.375 Gm Iv Premix) 3.375 gm in 50 mls @ 100 mls/hr IVPB Q8H [facility] Last Admin: 01/16/17 11:15 Dose: 100 mls/hr Fluconazole (Diflucan Iv 200 Mg/100 Ml Ns) 100 mls @ 100 mls/hr IVPB DAILY [facility] Last Admin: 01/16/17 10:06 Dose: 100 mls/hr Vancomycin/Sodium Chloride (Vancocin) 1 gm in 200 mls @ 133.333 mls/hr IVPB Q24H [facility] Stop: 01/20/17 12:01 Last Admin: 01/16/17 12:01 Dose: 133.333 mls/hr Insulin Aspart (Novolog) 0 unit SC ACHS [facility] PRN Reason: Protocol Last Admin: 01/16/17 12:13 Dose: 4 unit Lisinopril (Zestril) 5 mg PO DAILY [facility] Last Admin: 01/16/17 10:06 Dose: 5 mg Methylprednisolone (Solu-Medrol) 40 mg IVP Q12 [facility] Last Admin: 01/16/17 10:06 Dose: 40 mg Pantoprazole Sodium (Protonix Inj) 40 mg IVP Q12 [facility] Last Admin: 01/16/17 11:16 Dose: Not Given Potassium Chloride (Potassium Chloride Oral Soln) 20 meq NG BID [facility] Last Admin: 01/14/17 18:05 Dose: 20 meq Sucralfate (Carafate Oral Susp) 1 gm PO Q6 [facility] Last Admin: 01/16/17 12:00 Dose: Not Given - Labs Labs: 01/16/17 06:08 01/16/17 06:08 PT 10.6 SECONDS (9.7-12.2) 01/13/17 18:26 INR 1.0 01/13/17 18:26 APTT 24 SECONDS (21-34) 01/13/17 18:26 - Constitutional Appears: Non-toxic, Chronically Ill - Head Exam Head Exam: NORMOCEPHALIC - Eye Exam Eye Exam: PERRL - ENT Exam ENT Exam: Mucous Membranes Dry, Normal External Ear Exam - Neck Exam Neck Exam: absent: Lymphadenopathy - Respiratory Exam Respiratory Exam: Decreased Breath Sounds - Cardiovascular Exam Cardiovascular Exam: REGULAR RHYTHM - GI/Abdominal Exam GI & Abdominal Exam: Distended, Soft - Rectal Exam Rectal Exam: Deferred - Exam Exam: NORMAL INSPECTION - Extremities Exam Extremities Exam: absent: Pedal Edema - Back Exam Back Exam: absent: CVA tenderness (L), CVA tenderness (R) - Neurological Exam Neurological Exam: Alert, Awake - Psychiatric Exam Psychiatric exam: Depressed Assessment and Plan (1) Sepsis Status: Acute (2) Altered mental status Status: Acute (3) Elevated BUN Status: Acute
--- NOTE | 2017-01-16 17:22 | CP.PCM.CON ---
History of Present Illness - History of Present Illness History of Present Illness: This is a 76 year old woman transferred form [place] for altered mental status, hypoxia, fever. Gastroenterology consult was requested for drop in hemoglobin. Patient was admitted 01/07/2017. On admission, the HGB was 16.8, MCV 96. The hemoglobin level has gradually declined, and is now 7.7 with MCV 94.5. The nursing staff reports that stools have been dark, but there has not been any rectal bleeding. On admission, she denied having pain, nausea, vomiting. At present, she is lethargic. Review of Systems - Review of Systems Systems not reviewed;Unavailable: Unstable Vital Signs, Intubated Past Patient History - Infectious Disease Hx of Infectious Diseases: None - Tetanus Immunizations Tetanus Immunization: Up to Date - Past Medical History & Family History Past Medical History?: Yes - Past Social History Smoking Status: Never Smoked - CARDIAC Hx Cardia Arrhythmia: Yes Hx Hypertension: Yes Hx Peripheral Edema: Yes - PULMONARY Hx Chronic Obstructive Pulmonary Disease (COPD): Yes Hx Pulmonary Embolism: Yes - NEUROLOGICAL Hx Multiple Sclerosis: Yes - HEENT Hx HEENT Problems: Yes Hx Blind: No Hx Cataracts: Yes Hx Difficulty Chewing: No Hx Epistaxis: No Hx Glaucoma: No Hx Macular Degeneration: No Other/Comment: wears eyeglasses for reading - RENAL Hx Chronic Kidney Disease: Yes - ENDOCRINE/METABOLIC Hx Hyperthyroidism: No Hx Hypothyroidism: No - HEMATOLOGICAL/ONCOLOGICAL Hx Anemia: Yes - INTEGUMENTARY Hx Dermatological Problems: Yes Hx Eczema: Yes Hx Melanoma: No Hx Psoriasis: No Hx Squamous Cell: No Other/Comment: > hx of garvin hong syndrome, unknown precipitant. > hx of bullous pemphigoid - MUSCULOSKELETAL/RHEUMATOLOGICAL Hx Arthritis: Yes Hx Osteoporosis: Yes Hx Rheumatoid Arthritis: Yes - GASTROINTESTINAL Hx Gastrointestinal Disorders: Yes Hx Constipation: Yes - GENITOURINARY/GYNECOLOGICAL Other/Comment: wears a diaper in the detention (as with all patients) - PSYCHIATRIC Hx Anxiety: Yes Hx Depression: Yes Hx Substance Use: No - SURGICAL HISTORY Hx Surgeries: Yes Other/Comment: IVC filter 5-6 years ago for b/l DVT - ANESTHESIA Hx Anesthesia: Yes Hx Anesthesia Reactions: No Hx Malignant Hyperthermia: No Meds Allergies/Adverse Reactions: Allergies Allergy/AdvReac Type Severity Reaction Status Date / Time ascorbic acid Allergy Severe ANAPHYLAXIS Verified 01/07/17 09:45 aspirin Allergy RASH Verified 01/07/17 09:45 iodine Allergy RASH Verified 01/07/17 09:45 Ponds cream Allergy Severe ANAPHYLAXIS Uncoded 05/07/16 00:13 - Medications Medications: Current Medications Albuterol Sulfate (Albuterol 0.083% Inhal Jeri (2.5 Mg/3 Ml) Ud) 2.5 mg INH RQ4 [facility] Last Admin: 01/16/17 16:22 Dose: 2.5 mg Piperacillin Sod/Tazobactam Sod (Zosyn 3.375 Gm Iv Premix) 3.375 gm in 50 mls @ 100 mls/hr IVPB Q8H [facility] Last Admin: 01/16/17 11:15 Dose: 100 mls/hr Fluconazole (Diflucan Iv 200 Mg/100 Ml Ns) 100 mls @ 100 mls/hr IVPB DAILY [facility] Last Admin: 01/16/17 10:06 Dose: 100 mls/hr Vancomycin/Sodium Chloride (Vancocin) 1 gm in 200 mls @ 133.333 mls/hr IVPB Q24H [facility] Stop: 01/20/17 12:01 Last Admin: 01/16/17 12:01 Dose: 133.333 mls/hr Insulin Aspart (Novolog) 0 unit SC Q6H [facility] PRN Reason: Protocol Lisinopril (Zestril) 5 mg PO DAILY [facility] Last Admin: 01/16/17 10:06 Dose: 5 mg Methylprednisolone (Solu-Medrol) 40 mg IVP Q12 [facility] Last Admin: 01/16/17 10:06 Dose: 40 mg Pantoprazole Sodium (Protonix Inj) 40 mg IVP Q12 [facility] Last Admin: 01/16/17 11:16 Dose: Not Given Potassium Chloride (Potassium Chloride Oral Soln) 20 meq NG BID [facility] Last Admin: 01/14/17 18:05 Dose: 20 meq Sucralfate (Carafate Oral Susp) 1 gm PO Q6 [facility] Last Admin: 01/16/17 12:00 Dose: Not Given Physical Exam - Head Exam Head Exam: NORMAL INSPECTION, NORMOCEPHALIC - Neck Exam Neck exam: Negative for: Lymphadenopathy, Thyromegaly - Respiratory Exam Respiratory Exam: NORMAL BREATHING PATTERN. absent: Rales, Rhonchi, Wheezes - Cardiovascular Exam Cardiovascular Exam: REGULAR RHYTHM, +S1, +S2. absent: Gallop, Rubs, Systolic Murmur - GI/Abdominal Exam GI & Abdominal Exam: Normal Bowel Sounds, Soft. absent: Guarding, Organomegaly , Tenderness - Rectal Exam Rectal Exam: Deferred - Extremities Exam Extremities exam: Negative for: calf tenderness, pedal edema Results - Vital Signs Recent Vital Signs: Last Vital Signs Temp 98.6 F 01/16/17 12:00 Pulse 95 H 01/16/17 15:03 Resp 27 H 01/16/17 15:03 BP 122/73 01/16/17 15:03 Pulse Ox 100 01/16/17 15:03 - Labs Result Diagrams: 01/16/17 06:08 01/16/17 06:08 Labs: Laboratory Results - last 24 hr 01/16/17 01/16/17 01/16/17 05:26 06:08 06:08 WBC 14.0 H RBC 2.46 L Hgb 7.7 L Hct 23.3 L MCV 94.5 MCH 31.2 H MCHC 33.0 RDW 14.3 Plt Count 286 MPV 9.1 Neut % (Auto) 92.6 H Lymph % (Auto) 4.5 L Fleming % (Auto) 2.8 Eos % (Auto) 0.0 Baso % (Auto) 0.1 Neut # 13.0 H Lymph # 0.6 L Fleming # 0.4 Eos # 0.0 Baso # 0.0 Neutrophils % (Manual) 93 H Lymphocytes % (Manual) 5 L Monocytes % (Manual) 2 Nucleated RBC % 1 H Platelet Estimate Normal Polychromasia Slight Hypochromasia (manual) Slight Puncture Site R rad pCO2 33 L pO2 77 L HCO3 27.5 ABG pH 7.51 H ABG Total CO2 27.3 ABG O2 Saturation 97.8 ABG Base Excess 3.3 H ABG Hemoglobin 9.1 L ABG Carboxyhemoglobin 0.9 POC ABG HHb (Measured) 2.2 ABG Methemoglobin 1.2 Jose Maria Test Pos A-a O2 Difference 310.0 Respiratory Index 4.0 Hgb O2 Saturation 95.6 Vent Mode Prvc Mechanical Rate 14 FiO2 60.0 Tidal Volume 400 PEEP 5 Sodium 143 Potassium 3.7 Chloride 103 Carbon Dioxide 23 Anion Gap 20 BUN 30 H Creatinine 0.7 Est GFR ( Amer) > 60 Est GFR (Non-Af Amer) > 60 POC Glucose (mg/dL) Random Glucose 254 H Calcium 8.4 L Phosphorus 2.4 L Magnesium 2.5 H Total Bilirubin 0.5 AST 35 ALT 52 Alkaline Phosphatase 59 Total Protein 5.2 L Albumin 2.8 L Globulin 2.5 Albumin/Globulin Ratio 1.1 01/16/17 12:08 WBC RBC Hgb Hct MCV MCH MCHC RDW Plt Count MPV Neut % (Auto) Lymph % (Auto) Fleming % (Auto) Eos % (Auto) Baso % (Auto) Neut # Lymph # Fleming # Eos # Baso # Neutrophils % (Manual) Lymphocytes % (Manual) Monocytes % (Manual) Nucleated RBC % Platelet Estimate Polychromasia Hypochromasia (manual) Puncture Site pCO2 pO2 HCO3 ABG pH ABG Total CO2 ABG O2 Saturation ABG Base Excess ABG Hemoglobin ABG Carboxyhemoglobin POC ABG HHb (Measured) ABG Methemoglobin Jose Maria Test A-a O2 Difference Respiratory Index Hgb O2 Saturation Vent Mode Mechanical Rate FiO2 Tidal Volume PEEP Sodium Potassium Chloride Carbon Dioxide Anion Gap BUN Creatinine Est GFR ( Amer) Est GFR (Non-Af Amer) POC Glucose (mg/dL) 335 H Random Glucose Calcium Phosphorus Magnesium Total Bilirubin AST ALT Alkaline Phosphatase Total Protein Albumin Globulin Albumin/Globulin Ratio Assessment & Plan (1) Anemia Assessment and Plan: The hemoglobin has dropped 9 mg since admission with hydration. There has been no overt bleeding. Will check stool for occult blood, haptoglobin and CT scan of retroperitoneum. Status: Acute
[2017-01-16] MEDS: (Novolog) Insulin Aspart, Recombinant 100 u/ml 10 ml vial SC SCH (18:33)
[2017-01-16 18:44] LABS: IRON 63 ug/dL (37-170)
[2017-01-16 19:51] LABS: FOLATE 13.8 ng/mL
[2017-01-16] MEDS ORDERED: DiphenhydrAMINE 50 mg/ml Inj IVP ONE (20:22)
[2017-01-16] MEDS ORDERED: Iodixanol 320 MG/ML 100 ML BOTTLE IV ONE (21:48)
--- NOTE | 2017-01-16 21:54 | CP.PCM.PN ---
Subjective - Date & Time of Evaluation Date of Evaluation: 01/16/17 Time of Evaluation: 21:51 - Subjective Subjective: Pt found to have positive stool occult blood today after she finally had a BM. Today's hgb at 7.7. Ordered T&C 2 units PRBC for transfusion sine pt's hgb had dropped again today. > Pt's pneumonia appears much improved with today's portable CXR. Costophrenic angles much clearer and fluffy infiltrates have pretty much resolved. Pt sill very weak and with a significant O2 reqt at 60% FiO2. Pt has tolerated increasing periods of CPAP with overnight rest. > Discussed pt's status with daughter Demi today when she called the office and advised or current progress. Also updated her when I chanced upon her again in the ICU. Advised daughter that despite everything, her mother is in end- stage MS and she is much closer than before to MS's eventual outcome. Daughter verbalized understanding agreed with steps undertaken thus far. Objective - Vital Signs/Intake and Output Vital Signs (last 24 hours): Temp Pulse Resp BP Pulse Ox 97.4 F L 116 H 19 114/67 99 01/16/17 16:00 01/16/17 21:03 01/16/17 21:03 01/16/17 21:03 01/16/17 21:03 Intake and Output: 01/16/17 01/17/17 18:59 06:59 Intake Total 760 90 Output Total 625 80 Balance 135 10 - Medications Medications: Current Medications Albuterol Sulfate (Albuterol 0.083% Inhal Jeri (2.5 Mg/3 Ml) Ud) 2.5 mg INH RQ4 [facility] Last Admin: 01/16/17 20:43 Dose: 2.5 mg Piperacillin Sod/Tazobactam Sod (Zosyn 3.375 Gm Iv Premix) 3.375 gm in 50 mls @ 100 mls/hr IVPB Q8H [facility] Last Admin: 01/16/17 18:34 Dose: 100 mls/hr Fluconazole (Diflucan Iv 200 Mg/100 Ml Ns) 100 mls @ 100 mls/hr IVPB DAILY [facility] Last Admin: 01/16/17 10:06 Dose: 100 mls/hr Vancomycin/Sodium Chloride (Vancocin) 1 gm in 200 mls @ 133.333 mls/hr IVPB Q24H [facility] Stop: 01/20/17 12:01 Last Admin: 01/16/17 12:01 Dose: 133.333 mls/hr Insulin Aspart (Novolog) 0 unit SC Q6H [facility] PRN Reason: Protocol Last Admin: 01/16/17 18:33 Dose: 5 unit Lisinopril (Zestril) 5 mg PO DAILY [facility] Last Admin: 01/16/17 10:06 Dose: 5 mg Methylprednisolone (Solu-Medrol) 40 mg IVP Q12 [facility] Last Admin: 01/16/17 10:06 Dose: 40 mg Pantoprazole Sodium (Protonix Inj) 40 mg IVP Q12 [facility] Last Admin: 01/16/17 11:16 Dose: Not Given Potassium Chloride (Potassium Chloride Oral Soln) 20 meq NG BID [facility] Last Admin: 01/14/17 18:05 Dose: 20 meq Sucralfate (Carafate Oral Susp) 1 gm PO Q6 [facility] Last Admin: 01/16/17 18:34 Dose: 1 gm - Labs Labs: 01/16/17 06:08 01/16/17 06:08 PT 10.6 SECONDS (9.7-12.2) 01/13/17 18:26 INR 1.0 01/13/17 18:26 APTT 24 SECONDS (21-34) 01/13/17 18:26 - Constitutional Appears: No Acute Distress, Other (on vent) - Head Exam Head Exam: NORMAL INSPECTION, NORMOCEPHALIC - Eye Exam Additional comments: opens eyes - ENT Exam ENT Exam: Normal Exam - Neck Exam Neck Exam: Normal Inspection - Respiratory Exam Respiratory Exam: Clear to Ausculation Bilateral Additional comments: very mild rales, prob atelectatic lung - Cardiovascular Exam Cardiovascular Exam: REGULAR RHYTHM - GI/Abdominal Exam GI & Abdominal Exam: Hypoactive Bowel Sounds - Rectal Exam Rectal Exam: Deferred - Extremities Exam Extremities Exam: Pedal Edema Additional comments: mild - Back Exam Additional comments: unable to examine as pt vented - Neurological Exam Additional comments: unable to assess - Psychiatric Exam Psychiatric exam: Normal Affect, Normal Mood - Skin Skin Exam: Dry, Intact, Normal Color, Warm Assessment and Plan (1) Septic shock due to coagulase-negative staphylococcal infection Assessment & Plan: improved; though with leukocytosis, may be reactive Status: Acute (2) Respiratory failure Assessment & Plan: weaning and on CPAP Status: Acute (3) HCAP (healthcare-associated pneumonia) Assessment & Plan: improved, prob resolved. Status: Acute (4) Multiple sclerosis Assessment & Plan: end stage and signficantly impacts pt's prognosis alpesh from this point forward. Status: Chronic (5) Physical debility Assessment & Plan: will need extensive rehab if pt is to regain some strength at all Status: Acute (6) Anemia of chronic disease Status: Acute
--- NOTE | 2017-01-16 23:20 | CT ---
EXAM: CT Abdomen and Pelvis With Intravenous Contrast CLINICAL HISTORY: 76 years old, female; Condition or disease; Intestinal condition; Other: Sepsis; Additional info: Drop in hemoglobin TECHNIQUE: Axial computed tomography images of the abdomen and pelvis with intravenous contrast. All CT scans at this facility use one or more dose reduction techniques, viz.: automated exposure control; ma/kV adjustment per patient size (including targeted exams where dose is matched to indication; i.e. head); or iterative reconstruction technique. CONTRAST: 0 mL of visipaque administered intravenously. COMPARISON: US - ABDOMEN COMPLETE 08/01/2015 5:44:38 PM FINDINGS: Lower thorax: There is elevation of the right hemidiaphragm. There is consolidation of the left lower lobe, with bronchiectasis. This could represent sequestration. For evaluation of the lung bases, please see the dedicated chest CT performed concurrently. There is an esophagogastric tube which terminates in the distal stomach. ABDOMEN: Liver: There are no focal liver lesions present. There is a diffuse decrease in hepatic parenchymal density, consistent with fatty infiltration. Gallbladder and bile ducts: Multiple calcified gallstones are present. No ductal dilation. Pancreas: The pancreas is normal. No ductal dilation. Spleen: The spleen is normal. Adrenals: The adrenal glands are normal. Kidneys and ureters: There is no evidence of hydronephrosis. Stomach and bowel: The stomach is otherwise unremarkable. There is no evidence of intestinal obstruction. No mucosal thickening. Appendix: No findings to suggest acute appendicitis. PELVIS: Bladder: Bladder is decompressed around a Gilmore catheter. Reproductive: Unremarkable as visualized. ABDOMEN and PELVIS: Intraperitoneal space: There is no evidence of free intraperitoneal fluid. There is no free intraperitoneal air. Bones/joints: There are mild degenerative changes present. There is marked diffuse osteopenia. No acute fracture. No dislocation. Soft tissues: Unremarkable. Vasculature: Abdominal aorta is moderately atherosclerotic without aneurysm. An infrarenal IVC filter is present. Lymph nodes: There is no evidence of lymphadenopathy. Tubes, lines and devices: A rectal tube is present. Other findings: There is a subcentimeter hypodensity at the left midpole which is too small to adequately characterize. IMPRESSION: 1. There is elevation of the right hemidiaphragm. 2. There is consolidation of the left lower lobe, with bronchiectasis. This could represent sequestration. Please correlate clinically. 3. No definite acute pathology identified in the abdomen or pelvis. 4. Additional incidental and/or chronic findings as described.
[2017-01-16 23:47] LABS: BASO % 0.2 % (0.0-2.0); HEMATOCRIT 21.1 % (34.0-47.0); LYMPH # 0.9 K/uL (1.0-4.3); LYMPH % 6.4 % (20.0-40.0); MEAN CELL VOLUME 94.5 fL (81.0-99.0); MEAN CORPUSCULAR HEMOGLOBIN 31.3 pg (27.0-31.0); MEAN CORPUSCULAR HGB CONC 33.2 g/dL (33.0-37.0); MEAN PLATELET VOLUME 8.2 fL (7.2-11.7); MONO # 0.9 K/uL (0.0-0.8); MONO % 6.4 % (0.0-10.0); NRBC % 7.3 % (0.0-2.0); PLATELET COUNT 283 K/uL (130-400); RED CELL DISTRIBUTION WIDTH 14.2 % (11.5-14.5); WHITE BLOOD COUNT 13.4 K/uL (4.8-10.8)
[2017-01-17] MEDS: Albuterol 0.083% Inhal Sol (2.5 mg/3 mL) UD INH SCH ×6 (00:43→20:20)
[2017-01-17] MEDS: (Novolog) Insulin Aspart, Recombinant 100 u/ml 10 ml vial SC SCH ×5 (00:54→23:41)
[2017-01-17] MEDS: Piperacill/Tazo 3.375gm in Dex 3.375 GM/50 ML BAG IVPB SCH ×3 (02:49→18:09)
[2017-01-17 03:37] LABS: METAMYELOCYTE 2 % (0-0); NEUTROPHIL 85 % (50-75); NUCLEATED RED BLOOD CELL 4 % (0-0); TOTAL CELLS COUNTED 100
[2017-01-17 05:56] LABS: ABG ALLEN TEST POS; ABG MECHANICAL RATE 14; ARTERIAL BLOOD GAS MODE PRVC; ARTERIAL BLOOD HGB O2 SAT 95.1 % (95.0-98.0); ATERIAL BLOOD GAS PEEP 5; CARBOXYHEMOGLOBIN 1.1 % (0.5-1.5); DRAW SITE R RAD; METHEMOGLOBIN 0.8 % (0.0-3.0)
[2017-01-17 06:27] LABS: BASO % 0.2 % (0.0-2.0); HEMATOCRIT 21.9 % (34.0-47.0); LYMPH # 1.8 K/uL (1.0-4.3); LYMPH % 11.6 % (20.0-40.0); MEAN CELL VOLUME 94.3 fL (81.0-99.0); MEAN CORPUSCULAR HEMOGLOBIN 31.5 pg (27.0-31.0); MEAN CORPUSCULAR HGB CONC 33.4 g/dL (33.0-37.0); MEAN PLATELET VOLUME 8.8 fL (7.2-11.7); MONO # 0.8 K/uL (0.0-0.8); MONO % 4.9 % (0.0-10.0); RED CELL DISTRIBUTION WIDTH 14.3 % (11.5-14.5); WHITE BLOOD COUNT 15.3 K/uL (4.8-10.8)
[2017-01-17 06:41] LABS: ALB/GLOB RATIO 1.3 (1.0-2.1); ALKALINE PHOSPHATASE 48 U/L (38-126); ALT/SGPT 53 U/L (9-52); AST/SGOT 27 U/L (14-36); BILIRUBIN,TOTAL 0.6 mg/dL (0.2-1.3); BLOOD UREA NITROGEN 25 mg/dL (7-17); CALCIUM 7.7 mg/dl (8.6-10.4); CARBON DIOXIDE 25 mmol/L (22-30); CHLORIDE 104 mmol/L (98-107); GFR AFRICAN-AMERICAN > 60; GLUCOSE,RANDOM 82 mg/dL (65-105); MAGNESIUM 2.4 mg/dL (1.6-2.3); PHOSPHOROUS 1.7 mg/dL (2.5-4.5); SODIUM 141 mmol/L (132-148); TOTAL PROTEIN 4.6 g/dL (6.3-8.3)
[2017-01-17] MEDS: Sucralfate 1 gm/10 ml Oral Susp UD PO SCH ×4 (06:41→23:40)
--- NOTE | 2017-01-17 08:23 | CT ---
CTA chest PE protocol Indication: Hypoxia on ventilation Technique: Contiguous axial images were obtained through the chest with intravenous contrast enhancement. Sagittal and coronal reconstructions were generated and reviewed. This CT exam was performed using 1 or more of the falling dose reduction techniques: Automated exposure control, adjustment of the MAA and/or kV according to patient size, and/or use of iterative reconstruction technique. IV Contrast: 100 mL Visipaque Radiation dose (DLP): 378.78 MGy-cm. Comparison: Chest x-ray performed 01/16/17 Findings: Right IJ approach central venous catheter extends to the SVC. Endotracheal tube terminates at the level the janelle and should be withdrawn approximately 3 cm. Nasogastric tube extends expected location of the stomach, distal tip excluded from view. Visualized portions of the inferior thyroid gland appear heterogeneous enlarged. The mediastinal and hilar vascular structures appear within normal limits. The heart appears within normal limits of size. Coronary artery calcifications. No large central or segmental pulmonary embolus evident. Emphysematous changes. Left lower lobe consolidation. Right lower lobe patchy consolidation. Atelectasis/ scarring or fibrosis at the right lung apex. No pleural effusion. No pneumothorax. Limited visualized portions of the upper abdomen appear grossly unremarkable. Degenerative changes. Osseous demineralization. Impression: Endotracheal tube terminates at the level of the janelle and should be withdrawn approximately 3 cm. Nasogastric tube and right IJ approach appear in satisfactory position. Heterogeneous enlarged appearance of the included portions inferior thyroid gland. No large central or segmental pulmonary embolus identified. Emphysematous changes. Left lower lobe consolidation. Right lower lobe patchy consolidation. Atelectasis/ scarring or fibrosis at the right lung apex. Preliminary impression was provided by virtual radiologic.
--- NOTE | 2017-01-17 09:31 | CP.CCUPN ---
<UriahSugeynixon E - Last Filed: 01/17/17 16:49> CCU Subjective - Physician Review Subjective (Free Text): Patient was seen and examined at bedside. Patient was alert, awake and responsive to verbal commands. Patient is currently intubated. Patient nodded "NO" to chest pain, SOB, abdominal pain, fever, chills, nausea. Patient went through another CiPAP trial yesterday and did well and plans for another trial today in order to prepare for extubation. CCU Objective - Vital Signs / Intake & Output Vital Signs (Last 4 hours): Vital Signs Temp Pulse Resp BP Pulse Ox 01/17/17 08:58 99.2 F 90 14 105/57 L 01/17/17 08:55 99.2 F 01/17/17 08:35 99.2 F 01/17/17 08:28 99.2 F 94 H 14 114/62 01/17/17 08:27 95 H 17 114/62 100 01/17/17 08:15 98.8 F 01/17/17 08:13 98.8 F 100 H 19 114/62 01/17/17 08:04 94 H 15 119/65 100 01/17/17 08:00 99.1 F 92 H 15 99 01/17/17 07:58 99.1 F 93 H 15 119/65 01/17/17 07:04 93 H 22 117/69 100 01/17/17 07:00 91 H 14 99 01/17/17 06:03 94 H 16 90/60 L 99 01/17/17 06:00 95 H 17 98 Intake and Output (Last 8hrs): Intake & Output 01/16/17 01/17/17 01/17/17 22:59 06:59 14:59 Intake Total 290 210 150 Output Total 225 460 70 Balance 65 -250 80 Weight 135 lb Intake: Intake, IV Amount 50 50 Right Medial Port 50 Internal Jugular Right Proximal Port 50 Internal Jugular Oral 0 Tube Feeding 240 60 Blood Product 100 Red Blood Cells Cpd As1 0 Lr Unit [id number] Other 100 50 Output: Urine 185 260 70 Urethral ([place]) 185 260 70 Stool 40 200 - Physical Exam Head: Positive for: Atraumatic, Normocephalic Extroacular Muscles: Positive for: EOMI Mouth: Positive for: Other (w/ dentures) Nose (External): Positive for: Atraumatic. Negative for: Abrasion, Contusion, Laceration Neck: Negative for: JVD, Lymphadenopathy Respiratory/Chest: Positive for: Clear to Auscultation, Other (on ventilator). Negative for: Respiratory Distress Cardiovascular: Positive for: Regular Rate and Rhythm, Normal S1, S2. Negative for: Murmurs, Tachycardic Abdomen: Positive for: Normal Bowel Sounds. Negative for: Tenderness, Distention Upper Extremity: Positive for: NORMAL PULSES. Negative for: Edema Lower Extremity: Positive for: NORMAL PULSES. Negative for: Edema Neurological: Negative for: Speech Normal Skin: Positive for: Warm, Normal Color Psychiatric: Positive for: Alert - Medications Active Medications: Active Medications Generic Name Dose Route Start Last Admin Trade Name Freq PRN Reason Stop Dose Admin Albuterol Sulfate 2.5 mg 01/13/17 16:00 01/17/17 08:24 Albuterol 0.083% Inhal Jeri (2.5 Mg/3 Ml) Ud INH 2.5 mg RQ4 RAUL Administration Piperacillin Sod/Tazobactam Sod 3.375 gm in 50 mls @ 100 mls/hr 01/08/17 10: 30 01/17/17 02:49 Zosyn 3.375 Gm Iv Premix IVPB 100 mls/hr Q8H RAUL Administration Fluconazole 100 mls @ 100 mls/hr 01/13/17 10:00 01/16/17 10:06 Diflucan Iv 200 Mg/100 Ml Ns IVPB 100 mls/hr DAILY RAUL Administration Vancomycin/Sodium Chloride 1 gm in 200 mls @ 133.333 mls/hr 01/15/17 12:00 12:01 Vancocin IVPB 01/20/17 12:01 133.333 mls/hr Q24H RAUL Administration Insulin Aspart 0 unit 01/16/17 18:00 01/17/17 06:42 Novolog SC Not Given Q6H [facility] Protocol Lisinopril 5 mg 01/09/17 10:00 01/16/17 10:06 Zestril PO 5 mg DAILY RAUL Administration Methylprednisolone 20 mg 01/17/17 10:00 Solu-Medrol IVP Q12 ARUL Pantoprazole Sodium 40 mg 01/16/17 10:45 01/16/17 22:45 Protonix Inj IVP 40 mg Q12 RAUL Administration Potassium Chloride 20 meq 01/13/17 10:00 01/14/17 18:05 Potassium Chloride Oral Soln NG 20 meq BID RAUL Administration Sucralfate 1 gm 01/16/17 10:45 01/17/17 06:41 Carafate Oral Susp PO Not Given Q6 RAUL - Patient Studies Lab Studies: Microbiology Studies 01/13/17 15:30 Blood Culture - Preliminary Blood-Venous NO GROWTH AFTER 3 DAYS 01/13/17 16:00 Blood Culture - Preliminary Blood-Venous NO GROWTH AFTER 3 DAYS Lab Studies 01/17/17 01/17/17 01/17/17 Range/Units 07:14 06:19 06:19 WBC 15.3 H (4.8-10.8) K/uL RBC 2.32 L (3.80-5.20) Mil/uL Hgb 7.3 L (11.0-16.0) g/dL Hct 21.9 L (34.0-47.0) % MCV 94.3 (81.0-99.0) fL MCH 31.5 H (27.0-31.0) pg MCHC 33.4 (33.0-37.0) g/dL RDW 14.3 (11.5-14.5) % Plt Count 322 (130-400) K/uL MPV 8.8 (7.2-11.7) fL Neut % (Auto) 83.3 H (50.0-75.0) % Lymph % (Auto) 11.6 L (20.0-40.0) % [place] % (Auto) 4.9 (0.0-10.0) % Eos % (Auto) 0.0 (0.0-4.0) % Baso % (Auto) 0.2 (0.0-2.0) % Neut # 12.8 H (1.8-7.0) K/uL Lymph # 1.8 (1.0-4.3) K/uL [place] # 0.8 (0.0-0.8) K/uL Eos # 0.0 (0.0-0.7) K/uL Baso # 0.0 (0.0-0.2) K/uL Neutrophils % (Manual) (50-75) % Band Neutrophils % (0-2) % Lymphocytes % (Manual) (20-40) % Monocytes % (Manual) (0-10) % Metamyelocytes % (0-0) % Nucleated RBC % (0-0) % Differential Comment Platelet Estimate (NORMAL) Polychromasia Poikilocytosis (manual Anisocytosis (manual) Retic Count (0.5-1.5) % Puncture Site pCO2 (35-45) mm/Hg pO2 (80-100) mm/Hg HCO3 (21-28) mmol/L ABG pH (7.35-7.45) ABG Total CO2 (22-28) mmol/L ABG O2 Saturation (95-98) % ABG Base Excess (-2.0-3.0) mmol/L ABG Hemoglobin (11.7-17.4) g/dL ABG Carboxyhemoglobin (0.5-1.5) % POC ABG HHb (Measured) (0.0-5.0) % ABG Methemoglobin (0.0-3.0) % Jose Maria Test A-a O2 Difference mm/Hg Respiratory Index Hgb O2 Saturation (95.0-98.0) % Vent Mode Mechanical Rate FiO2 % Tidal Volume PEEP Sodium 141 (132-148) mmol/L Potassium 3.0 L (3.6-5.2) mmol/L Chloride 104 (98-107) mmol/L Carbon Dioxide 25 (22-30) mmol/L Anion Gap 15 (10-20) BUN 25 H (7-17) mg/dL Creatinine 0.6 L (0.7-1.2) MG/DL Est GFR ( Amer) > 60 Est GFR (Non-Af Amer) > 60 POC Glucose (mg/dL) (65-110) mg/dL Random Glucose 82 (65-105) mg/dL Calcium 7.7 L (8.6-10.4) mg/dl Phosphorus 1.7 L (2.5-4.5) mg/dL Magnesium 2.4 H (1.6-2.3) mg/dL Iron (37-170) ug/dL TIBC (250-450) ug/dL % Saturation (20-55) Ferritin ng/mL Total Bilirubin 0.6 (0.2-1.3) mg/dL AST 27 (14-36) U/L ALT 53 H (9-52) U/L Alkaline Phosphatase 48 (38-126) U/L Lactate Dehydrogenase (313-618) U/L Total Protein 4.6 L (6.3-8.3) g/dL Albumin 2.6 L (3.5-5.0) g/dL Globulin 2.0 L (2.2-3.9) gm/dL Albumin/Globulin Ratio 1.3 (1.0-2.1) Vitamin B12 (239-931) pg/mL Folate ng/mL Stool Occult Blood Positive H (NEGATIVE) Blood Type Antibody Screen 01/17/17 01/17/17 01/17/17 Range/Units 05:39 05:33 01:57 WBC (4.8-10.8) K/uL RBC (3.80-5.20) Mil/uL Hgb (11.0-16.0) g/dL Hct (34.0-47.0) % MCV (81.0-99.0) fL MCH (27.0-31.0) pg MCHC (33.0-37.0) g/dL RDW (11.5-14.5) % Plt Count (130-400) K/uL MPV (7.2-11.7) fL Neut % (Auto) (50.0-75.0) % Lymph % (Auto) (20.0-40.0) % [place] % (Auto) (0.0-10.0) % Eos % (Auto) (0.0-4.0) % Baso % (Auto) (0.0-2.0) % Neut # (1.8-7.0) K/uL Lymph # (1.0-4.3) K/uL [place] # (0.0-0.8) K/uL Eos # (0.0-0.7) K/uL Baso # (0.0-0.2) K/uL Neutrophils % (Manual) (50-75) % Band Neutrophils % (0-2) % Lymphocytes % (Manual) (20-40) % Monocytes % (Manual) (0-10) % Metamyelocytes % (0-0) % Nucleated RBC % (0-0) % Differential Comment Platelet Estimate (NORMAL) Polychromasia Poikilocytosis (manual Anisocytosis (manual) Retic Count (0.5-1.5) % Puncture Site R rad pCO2 30 L (35-45) mm/Hg pO2 67 L (80-100) mm/Hg HCO3 28.0 (21-28) mmol/L ABG pH 7.55 H (7.35-7.45) ABG Total CO2 27.1 (22-28) mmol/L ABG O2 Saturation 96.9 (95-98) % ABG Base Excess 4.0 H (-2.0-3.0) mmol/L ABG Hemoglobin 9.3 L (11.7-17.4) g/dL ABG Carboxyhemoglobin 1.1 (0.5-1.5) % POC ABG HHb (Measured) 3.0 (0.0-5.0) % ABG Methemoglobin 0.8 (0.0-3.0) % [place] Test Pos A-a O2 Difference 323.0 mm/Hg Respiratory Index 4.8 Hgb O2 Saturation 95.1 (95.0-98.0) % Vent Mode Prvc Mechanical Rate 14 FiO2 60.0 % Tidal Volume 450 PEEP 5 Sodium (132-148) mmol/L Potassium (3.6-5.2) mmol/L Chloride (98-107) mmol/L Carbon Dioxide (22-30) mmol/L Anion Gap (10-20) BUN (7-17) mg/dL Creatinine (0.7-1.2) MG/DL Est GFR ( Amer) Est GFR (Non-Af Amer) POC Glucose (mg/dL) 119 H (65-110) mg/dL Random Glucose (65-105) mg/dL Calcium (8.6-10.4) mg/dl Phosphorus (2.5-4.5) mg/dL Magnesium (1.6-2.3) mg/dL Iron (37-170) ug/dL TIBC (250-450) ug/dL % Saturation (20-55) Ferritin ng/mL Total Bilirubin (0.2-1.3) mg/dL AST (14-36) U/L ALT (9-52) U/L Alkaline Phosphatase (38-126) U/L Lactate Dehydrogenase (313-618) U/L Total Protein (6.3-8.3) g/dL Albumin (3.5-5.0) g/dL Globulin (2.2-3.9) gm/dL Albumin/Globulin Ratio (1.0-2.1) Vitamin B12 (239-931) pg/mL Folate ng/mL Stool Occult Blood (NEGATIVE) Blood Type A POSITIVE Antibody Screen Negative 01/17/17 01/16/17 01/16/17 Range/Units 00:29 23:41 18:16 WBC 13.4 H (4.8-10.8) K/uL RBC 2.23 L (3.80-5.20) Mil/uL Hgb 7.0 L (11.0-16.0) g/dL Hct 21.1 L (34.0-47.0) % MCV 94.5 (81.0-99.0) fL MCH 31.3 H (27.0-31.0) pg MCHC 33.2 (33.0-37.0) g/dL RDW 14.2 (11.5-14.5) % Plt Count 283 (130-400) K/uL MPV 8.2 (7.2-11.7) fL Neut % (Auto) 87.0 H (50.0-75.0) % Lymph % (Auto) 6.4 L (20.0-40.0) % [place] % (Auto) 6.4 (0.0-10.0) % Eos % (Auto) 0.0 (0.0-4.0) % Baso % (Auto) 0.2 (0.0-2.0) % Neut # 11.7 H (1.8-7.0) K/uL Lymph # 0.9 L (1.0-4.3) K/uL [place] # 0.9 H (0.0-0.8) K/uL Eos # 0.0 (0.0-0.7) K/uL Baso # 0.0 (0.0-0.2) K/uL Neutrophils % (Manual) 85 H (50-75) % Band Neutrophils % 1 (0-2) % Lymphocytes % (Manual) 6 L (20-40) % Monocytes % (Manual) 6 (0-10) % Metamyelocytes % 2 H (0-0) % Nucleated RBC % 4 H (0-0) % Differential Comment Platelet Estimate Normal (NORMAL) Polychromasia Slight Poikilocytosis (manual Slight Anisocytosis (manual) Moderate Retic Count (0.5-1.5) % Puncture Site pCO2 (35-45) mm/Hg pO2 (80-100) mm/Hg HCO3 (21-28) mmol/L ABG pH (7.35-7.45) ABG Total CO2 (22-28) mmol/L ABG O2 Saturation (95-98) % ABG Base Excess (-2.0-3.0) mmol/L ABG Hemoglobin (11.7-17.4) g/dL ABG Carboxyhemoglobin (0.5-1.5) % POC ABG HHb (Measured) (0.0-5.0) % ABG Methemoglobin (0.0-3.0) % [place] Test A-a O2 Difference mm/Hg Respiratory Index Hgb O2 Saturation (95.0-98.0) % Vent Mode Mechanical Rate FiO2 % Tidal Volume PEEP Sodium (132-148) mmol/L Potassium (3.6-5.2) mmol/L Chloride (98-107) mmol/L Carbon Dioxide (22-30) mmol/L Anion Gap (10-20) BUN (7-17) mg/dL Creatinine (0.7-1.2) MG/DL Est GFR ( Amer) Est GFR (Non-Af Amer) POC Glucose (mg/dL) 234 H (65-110) mg/dL Random Glucose (65-105) mg/dL Calcium (8.6-10.4) mg/dl Phosphorus (2.5-4.5) mg/dL Magnesium (1.6-2.3) mg/dL Iron (37-170) ug/dL TIBC (250-450) ug/dL % Saturation (20-55) Ferritin ng/mL Total Bilirubin (0.2-1.3) mg/dL AST (14-36) U/L ALT (9-52) U/L Alkaline Phosphatase (38-126) U/L Lactate Dehydrogenase (313-618) U/L Total Protein (6.3-8.3) g/dL Albumin (3.5-5.0) g/dL Globulin (2.2-3.9) gm/dL Albumin/Globulin Ratio (1.0-2.1) Vitamin B12 (239-931) pg/mL Folate ng/mL Stool Occult Blood Positive H (NEGATIVE) Blood Type Antibody Screen 01/16/17 01/16/17 01/16/17 Range/Units 18:13 18:13 18:13 WBC (4.8-10.8) K/uL RBC (3.80-5.20) Mil/uL Hgb (11.0-16.0) g/dL Hct (34.0-47.0) % MCV (81.0-99.0) fL MCH (27.0-31.0) pg MCHC (33.0-37.0) g/dL RDW (11.5-14.5) % Plt Count (130-400) K/uL MPV (7.2-11.7) fL Neut % (Auto) (50.0-75.0) % Lymph % (Auto) (20.0-40.0) % [place] % (Auto) (0.0-10.0) % Eos % (Auto) (0.0-4.0) % Baso % (Auto) (0.0-2.0) % Neut # (1.8-7.0) K/uL Lymph # (1.0-4.3) K/uL [place] # (0.0-0.8) K/uL Eos # (0.0-0.7) K/uL Baso # (0.0-0.2) K/uL Neutrophils % (Manual) (50-75) % Band Neutrophils % (0-2) % Lymphocytes % (Manual) (20-40) % Monocytes % (Manual) (0-10) % Metamyelocytes % (0-0) % Nucleated RBC % (0-0) % Differential Comment Platelet Estimate (NORMAL) Polychromasia Poikilocytosis (manual Anisocytosis (manual) Retic Count 2.7 H (0.5-1.5) % Puncture Site pCO2 (35-45) mm/Hg pO2 (80-100) mm/Hg HCO3 (21-28) mmol/L ABG pH (7.35-7.45) ABG Total CO2 (22-28) mmol/L ABG O2 Saturation (95-98) % ABG Base Excess (-2.0-3.0) mmol/L ABG Hemoglobin (11.7-17.4) g/dL ABG Carboxyhemoglobin (0.5-1.5) % POC ABG HHb (Measured) (0.0-5.0) % ABG Methemoglobin (0.0-3.0) % [place] Test A-a O2 Difference mm/Hg Respiratory Index Hgb O2 Saturation (95.0-98.0) % Vent Mode Mechanical Rate FiO2 % Tidal Volume PEEP Sodium (132-148) mmol/L Potassium (3.6-5.2) mmol/L Chloride (98-107) mmol/L Carbon Dioxide (22-30) mmol/L Anion Gap (10-20) BUN (7-17) mg/dL Creatinine (0.7-1.2) MG/DL Est GFR ( Amer) Est GFR (Non-Af Amer) POC Glucose (mg/dL) (65-110) mg/dL Random Glucose (65-105) mg/dL Calcium (8.6-10.4) mg/dl Phosphorus (2.5-4.5) mg/dL Magnesium (1.6-2.3) mg/dL Iron 63 (37-170) ug/dL TIBC 265 (250-450) ug/dL % Saturation 24 (20-55) Ferritin 270.0 ng/mL Total Bilirubin (0.2-1.3) mg/dL AST (14-36) U/L ALT (9-52) U/L Alkaline Phosphatase (38-126) U/L Lactate Dehydrogenase 847 H (313-618) U/L Total Protein (6.3-8.3) g/dL Albumin (3.5-5.0) g/dL Globulin (2.2-3.9) gm/dL Albumin/Globulin Ratio (1.0-2.1) Vitamin B12 963 H (239-931) pg/mL Folate 13.8 ng/mL Stool Occult Blood (NEGATIVE) Blood Type Antibody Screen 01/16/17 01/16/17 Range/Units 17:52 12:08 WBC (4.8-10.8) K/uL RBC (3.80-5.20) Mil/uL Hgb (11.0-16.0) g/dL Hct (34.0-47.0) % MCV (81.0-99.0) fL MCH (27.0-31.0) pg MCHC (33.0-37.0) g/dL RDW (11.5-14.5) % Plt Count (130-400) K/uL MPV (7.2-11.7) fL Neut % (Auto) (50.0-75.0) % Lymph % (Auto) (20.0-40.0) % [place] % (Auto) (0.0-10.0) % Eos % (Auto) (0.0-4.0) % Baso % (Auto) (0.0-2.0) % Neut # (1.8-7.0) K/uL Lymph # (1.0-4.3) K/uL [place] # (0.0-0.8) K/uL Eos # (0.0-0.7) K/uL Baso # (0.0-0.2) K/uL Neutrophils % (Manual) (50-75) % Band Neutrophils % (0-2) % Lymphocytes % (Manual) (20-40) % Monocytes % (Manual) (0-10) % Metamyelocytes % (0-0) % Nucleated RBC % (0-0) % Differential Comment Platelet Estimate (NORMAL) Polychromasia Poikilocytosis (manual Anisocytosis (manual) Retic Count (0.5-1.5) % Puncture Site pCO2 (35-45) mm/Hg pO2 (80-100) mm/Hg HCO3 (21-28) mmol/L ABG pH (7.35-7.45) ABG Total CO2 (22-28) mmol/L ABG O2 Saturation (95-98) % ABG Base Excess (-2.0-3.0) mmol/L ABG Hemoglobin (11.7-17.4) g/dL ABG Carboxyhemoglobin (0.5-1.5) % POC ABG HHb (Measured) (0.0-5.0) % ABG Methemoglobin (0.0-3.0) % [place] Test A-a O2 Difference mm/Hg Respiratory Index Hgb O2 Saturation (95.0-98.0) % Vent Mode Mechanical Rate FiO2 % Tidal Volume PEEP Sodium (132-148) mmol/L Potassium (3.6-5.2) mmol/L Chloride (98-107) mmol/L Carbon Dioxide (22-30) mmol/L Anion Gap (10-20) BUN (7-17) mg/dL Creatinine (0.7-1.2) MG/DL Est GFR ( Amer) Est GFR (Non-Af Amer) POC Glucose (mg/dL) 341 H 335 H (65-110) mg/dL Random Glucose (65-105) mg/dL Calcium (8.6-10.4) mg/dl Phosphorus (2.5-4.5) mg/dL Magnesium (1.6-2.3) mg/dL Iron (37-170) ug/dL TIBC (250-450) ug/dL % Saturation (20-55) Ferritin ng/mL Total Bilirubin (0.2-1.3) mg/dL AST (14-36) U/L ALT (9-52) U/L Alkaline Phosphatase (38-126) U/L Lactate Dehydrogenase (313-618) U/L Total Protein (6.3-8.3) g/dL Albumin (3.5-5.0) g/dL Globulin (2.2-3.9) gm/dL Albumin/Globulin Ratio (1.0-2.1) Vitamin B12 (239-931) pg/mL Folate ng/mL Stool Occult Blood (NEGATIVE) Blood Type Antibody Screen Laboratory Results - last 24 hr 01/16/17 01/16/17 01/16/17 12:08 17:52 18:13 WBC RBC Hgb Hct MCV MCH MCHC RDW Plt Count MPV Neut % (Auto) Lymph % (Auto) [place] % (Auto) Eos % (Auto) Baso % (Auto) Neut # Lymph # [place] # Eos # Baso # Neutrophils % (Manual) Band Neutrophils % Lymphocytes % (Manual) Monocytes % (Manual) Metamyelocytes % Nucleated RBC % Differential Comment Platelet Estimate Polychromasia Poikilocytosis (manual Anisocytosis (manual) Retic Count 2.7 H Puncture Site pCO2 pO2 HCO3 ABG pH ABG Total CO2 ABG O2 Saturation ABG Base Excess ABG Hemoglobin ABG Carboxyhemoglobin POC ABG HHb (Measured) ABG Methemoglobin [place] Test A-a O2 Difference Respiratory Index Hgb O2 Saturation Vent Mode Mechanical Rate FiO2 Tidal Volume PEEP Sodium Potassium Chloride Carbon Dioxide Anion Gap BUN Creatinine Est GFR ( Amer) Est GFR (Non-Af Amer) POC Glucose (mg/dL) 335 H 341 H Random Glucose Calcium Phosphorus Magnesium Iron TIBC % Saturation Ferritin Total Bilirubin AST ALT Alkaline Phosphatase Lactate Dehydrogenase Total Protein Albumin Globulin Albumin/Globulin Ratio Vitamin B12 Folate Stool Occult Blood Blood Type Antibody Screen 01/16/17 01/16/17 01/16/17 18:13 18:13 18:16 WBC RBC Hgb Hct MCV MCH MCHC RDW Plt Count MPV Neut % (Auto) Lymph % (Auto) [place] % (Auto) Eos % (Auto) Baso % (Auto) Neut # Lymph # [place] # Eos # Baso # Neutrophils % (Manual) Band Neutrophils % Lymphocytes % (Manual) Monocytes % (Manual) Metamyelocytes % Nucleated RBC % Differential Comment Platelet Estimate Polychromasia Poikilocytosis (manual Anisocytosis (manual) Retic Count Puncture Site pCO2 pO2 HCO3 ABG pH ABG Total CO2 ABG O2 Saturation ABG Base Excess ABG Hemoglobin ABG Carboxyhemoglobin POC ABG HHb (Measured) ABG Methemoglobin [place] Test A-a O2 Difference Respiratory Index Hgb O2 Saturation Vent Mode Mechanical Rate FiO2 Tidal Volume PEEP Sodium Potassium Chloride Carbon Dioxide Anion Gap BUN Creatinine Est GFR ( Amer) Est GFR (Non-Af Amer) POC Glucose (mg/dL) Random Glucose Calcium Phosphorus Magnesium Iron 63 TIBC 265 % Saturation 24 Ferritin 270.0 Total Bilirubin AST ALT Alkaline Phosphatase Lactate Dehydrogenase 847 H Total Protein Albumin Globulin Albumin/Globulin Ratio Vitamin B12 963 H Folate 13.8 Stool Occult Blood Positive H Blood Type Antibody Screen 01/16/17 01/17/17 01/17/17 23:41 00:29 01:57 WBC 13.4 H RBC 2.23 L Hgb 7.0 L Hct 21.1 L MCV 94.5 MCH 31.3 H MCHC 33.2 RDW 14.2 Plt Count 283 MPV 8.2 Neut % (Auto) 87.0 H Lymph % (Auto) 6.4 L [place] % (Auto) 6.4 Eos % (Auto) 0.0 Baso % (Auto) 0.2 Neut # 11.7 H Lymph # 0.9 L [place] # 0.9 H Eos # 0.0 Baso # 0.0 Neutrophils % (Manual) 85 H Band Neutrophils % 1 Lymphocytes % (Manual) 6 L Monocytes % (Manual) 6 Metamyelocytes % 2 H Nucleated RBC % 4 H Differential Comment Platelet Estimate Normal Polychromasia Slight Poikilocytosis (manual Slight Anisocytosis (manual) Moderate Retic Count Puncture Site pCO2 pO2 HCO3 ABG pH ABG Total CO2 ABG O2 Saturation ABG Base Excess ABG Hemoglobin ABG Carboxyhemoglobin POC ABG HHb (Measured) ABG Methemoglobin [place] Test A-a O2 Difference Respiratory Index Hgb O2 Saturation Vent Mode Mechanical Rate FiO2 Tidal Volume PEEP Sodium Potassium Chloride Carbon Dioxide Anion Gap BUN Creatinine Est GFR ( Amer) Est GFR (Non-Af Amer) POC Glucose (mg/dL) 234 H Random Glucose Calcium Phosphorus Magnesium Iron TIBC % Saturation Ferritin Total Bilirubin AST ALT Alkaline Phosphatase Lactate Dehydrogenase Total Protein Albumin Globulin Albumin/Globulin Ratio Vitamin B12 Folate Stool Occult Blood Blood Type A POSITIVE Antibody Screen Negative 01/17/17 01/17/17 01/17/17 05:33 05:39 06:19 WBC 15.3 H RBC 2.32 L Hgb 7.3 L Hct 21.9 L MCV 94.3 MCH 31.5 H MCHC 33.4 RDW 14.3 Plt Count 322 MPV 8.8 Neut % (Auto) 83.3 H Lymph % (Auto) 11.6 L [place] % (Auto) 4.9 Eos % (Auto) 0.0 Baso % (Auto) 0.2 Neut # 12.8 H Lymph # 1.8 [place] # 0.8 Eos # 0.0 Baso # 0.0 Neutrophils % (Manual) Band Neutrophils % Lymphocytes % (Manual) Monocytes % (Manual) Metamyelocytes % Nucleated RBC % Differential Comment Platelet Estimate Polychromasia Poikilocytosis (manual Anisocytosis (manual) Retic Count Puncture Site R rad pCO2 30 L pO2 67 L HCO3 28.0 ABG pH 7.55 H ABG Total CO2 27.1 ABG O2 Saturation 96.9 ABG Base Excess 4.0 H ABG Hemoglobin 9.3 L ABG Carboxyhemoglobin 1.1 POC ABG HHb (Measured) 3.0 ABG Methemoglobin 0.8 [place] Test Pos A-a O2 Difference 323.0 Respiratory Index 4.8 Hgb O2 Saturation 95.1 Vent Mode Prvc Mechanical Rate 14 FiO2 60.0 Tidal Volume 450 PEEP 5 Sodium Potassium Chloride Carbon Dioxide Anion Gap BUN Creatinine Est GFR ( Amer) Est GFR (Non-Af Amer) POC Glucose (mg/dL) 119 H Random Glucose Calcium Phosphorus Magnesium Iron TIBC % Saturation Ferritin Total Bilirubin AST ALT Alkaline Phosphatase Lactate Dehydrogenase Total Protein Albumin Globulin Albumin/Globulin Ratio Vitamin B12 Folate Stool Occult Blood Blood Type Antibody Screen 01/17/17 01/17/17 06:19 07:14 WBC RBC Hgb Hct MCV MCH MCHC RDW Plt Count MPV Neut % (Auto) Lymph % (Auto) [place] % (Auto) Eos % (Auto) Baso % (Auto) Neut # Lymph # [place] # Eos # Baso # Neutrophils % (Manual) Band Neutrophils % Lymphocytes % (Manual) Monocytes % (Manual) Metamyelocytes % Nucleated RBC % Differential Comment Platelet Estimate Polychromasia Poikilocytosis (manual Anisocytosis (manual) Retic Count Puncture Site pCO2 pO2 HCO3 ABG pH ABG Total CO2 ABG O2 Saturation ABG Base Excess ABG Hemoglobin ABG Carboxyhemoglobin POC ABG HHb (Measured) ABG Methemoglobin Jose Maria Test A-a O2 Difference Respiratory Index Hgb O2 Saturation Vent Mode Mechanical Rate FiO2 Tidal Volume PEEP Sodium 141 Potassium 3.0 L Chloride 104 Carbon Dioxide 25 Anion Gap 15 BUN 25 H Creatinine 0.6 L Est GFR ( Amer) > 60 Est GFR (Non-Af Amer) > 60 POC Glucose (mg/dL) Random Glucose 82 Calcium 7.7 L Phosphorus 1.7 L Magnesium 2.4 H Iron TIBC % Saturation Ferritin Total Bilirubin 0.6 AST 27 ALT 53 H Alkaline Phosphatase 48 Lactate Dehydrogenase Total Protein 4.6 L Albumin 2.6 L Globulin 2.0 L Albumin/Globulin Ratio 1.3 Vitamin B12 Folate Stool Occult Blood Positive H Blood Type Antibody Screen Fingerstick Blood Sugar Results: 119 Review of Systems - Review of Systems Review of Systems: Unable to evaluate adequate ROS as patient was intubated - Constitutional Constitutional: absent: Fever, Chills, Weakness - Cardiovascular Cardiovascular: absent: Chest Pain, Chest Pain at Rest, Dyspnea - Gastrointestinal Gastrointestinal: Nausea. absent: Abdominal Pain, Cramping Critical Care Progress Note - Nutrition Nutrition: Nutrition Category Date Time Status NPO Diet [DIET] Diets 01/17/17 Breakfast Active Assessment/Plan - Assessment and Plan (Free Text) Assessment: Patient is a 76 y/o female with past medical history Anemia, Anxiety, Arthritis , Cardiac Arrhythmia, COPD, Depression, HTN, Hyperlipidemia, Multiple Sclerosis , Osteoporosis, Peripheral Edema, Pulmonary Embolism, Chronic Kidney Disease, Rheumatoid Arthritis, presents with dyspnea and sepsis Plans to extubate today, insert picc line, remove right IJ and transfuse 1 unit Plan: Pulm: Hypercapnic respiratory failure * Intubated on 01/08/17; ET tube was advanced into the airway 1-2cm (01/15/17) * Cipap continued today, tolerated well * Duonebs 2.5mg RQ4 * Solu-Medrol 40mg IVP Q12H Chest X-ray (01/14/17): Lines and tubes in stable position. Moderate right pleural effusion. Confluent airspace consolidation within the right mid to lower lung zone. Prominent diffuse increased interstitial lung markings. Biapical pleural thickening with upper lobe granulomatous changes. CT chest (01/16/17): No evidence of PE (01/15/17) Cipap trial yesterday: Oxygen saturation at 88, therefore patient was not extubated. (01/16/17) Cipap trial was started today at 10:30am and patient has been tolerable with an oxygen saturation of 95%. We continue to monitor on CiPap : Cipap trial continued today, tolerated and subsequently, patient was extubated as 16:52, and was placed on a venturi mask. Cardio: Diastolic heart failure * On admission, BNP: 18,200 Echo(01/08/17): Normal LV systolic HTN: Lisinopril 5mg PO daily GI: * Elevated ALT (Resolving) * Continue to monitor Renal: * BUN elevated, Normal Cr (BUN trending down) * Continue to monitor urine output Heme: GI Consult, Dr. Farris H/H: 7.3/21.9, Transfused 1 unit of PRBC Endoscopy (01/17/17): A single 3mm sessile polyp in the gastric fundus and patchy minimal inflammation with erythema in the gastric antrum. No gross lesion in the 2nd part of the duodenum Continue to monitor ID: Dr. Lind on board---> Help appreciated PICC line consult, for long-term antibiotics need. Plans to remove IJ * Septic on admission: Lactate of 1.1--->1.9 with bands of 40 (Resolved) * Blood Cultures: Coagulase (-) staphylococcus (01/07/17) * Urine culture: negative * Sputum gram stain : Yeast species Current medications: * Zosyn 3.375gm IVPB Q8H * Vanco discontinued on the 01/09, restarted on Vanco 01/15/17 with a stop date of 01/20/17 * Linezolid 600mg IV Q12H (01/08/17-01/11/17) * Fluconazole 200Mg IVBP daily Neuro: * Alert, responds to verbal stimuli * Avoid narcotics and sedation medications Prophylaxis: * GI: Protonix 40mg IV daily, Sucralfate 30ml Soln Q6H * DVT: SCDs, anticoagulation contraindicated due to unstable H/H <Jonny Figueroa - Last Filed: 01/17/17 17:41> CCU Objective - Vital Signs / Intake & Output Vital Signs (Last 4 hours): Vital Signs Temp Pulse Resp BP Pulse Ox 01/17/17 17:00 84 28 H 151/91 H 97 01/17/17 16:14 84 28 H 151/91 H 99 01/17/17 16:00 99 F 82 27 H 100 01/17/17 15:14 79 28 H 154/90 H 99 01/17/17 15:00 85 29 H 145/88 99 01/17/17 14:46 87 28 H 148/79 99 01/17/17 14:31 88 30 H 137/96 H 98 01/17/17 14:15 86 28 H 168/78 H 99 01/17/17 14:00 85 17 152/80 H 100 01/17/17 13:59 85 17 153/85 H 100 01/17/17 13:56 88 15 145/82 100 01/17/17 13:54 87 14 152/81 H 100 01/17/17 13:50 88 14 157/94 H 100 01/17/17 13:48 90 14 155/90 H 100 01/17/17 13:44 90 14 125/74 100 01/17/17 13:34 98 H 31 H 142/99 H 98 01/17/17 13:32 98.8 F 89 26 H 146/80 98 Intake and Output (Last 8hrs): Intake & Output 01/17/17 01/17/17 01/17/17 06:59 14:59 22:59 Intake Total 210 1514 126 Output Total 460 160 110 Balance -250 1354 16 Weight 135 lb Intake: IV 100 Intake, IV Amount 50 539 126 Right Medial Port 50 339 126 Internal Jugular Right Proximal Port 200 Internal Jugular Oral 0 Tube Feeding 60 Blood Product 625 Red Blood Cells Cpd As1 325 Lr Unit [id number] Other 100 250 Red Blood Cells Cpd As1 100 Lr Unit [id number] Output: Urine 260 160 110 Urethral ([place]) 260 160 110 Stool 200 - Medications Active Medications: Active Medications Generic Name Dose Route Start Last Admin Trade Name Freq PRN Reason Stop Dose Admin Albuterol Sulfate 2.5 mg 01/13/17 16:00 01/17/17 12:35 Albuterol 0.083% Inhal Jeri (2.5 Mg/3 Ml) Ud INH 2.5 mg RQ4 RAUL Administration Piperacillin Sod/Tazobactam Sod 3.375 gm in 50 mls @ 100 mls/hr 01/08/17 10: 30 01/17/17 10:39 Zosyn 3.375 Gm Iv Premix IVPB 100 mls/hr Q8H RAUL Administration Fluconazole 100 mls @ 100 mls/hr 01/13/17 10:00 01/17/17 10:35 Diflucan Iv 200 Mg/100 Ml Ns IVPB 100 mls/hr DAILY RAUL Administration Vancomycin/Sodium Chloride 1 gm in 200 mls @ 133.333 mls/hr 01/15/17 12:00 12:08 Vancocin IVPB 01/20/17 12:01 133.333 mls/hr Q24H RAUL Administration Potassium Phosphate 15 mmole/ 255 mls @ 63 mls/hr 01/17/17 16:00 01/17/17 15: 52 Sodium Chloride IV 01/17/17 20:02 63 mls/hr ONCE ONE Administration Insulin Aspart 0 unit 01/16/17 18:00 01/17/17 12:06 Novolog SC Not Given Q6H RAUL Protocol Lisinopril 5 mg 01/09/17 10:00 01/17/17 10:36 Zestril PO 5 mg DAILY RAUL Administration Methylprednisolone 20 mg 01/17/17 10:00 01/17/17 10:34 Solu-Medrol IVP 20 mg Q12 RAUL Administration Pantoprazole Sodium 40 mg 01/16/17 10:45 01/17/17 10:35 Protonix Inj IVP 40 mg Q12 RAUL Administration Potassium Chloride 20 meq 01/13/17 10:00 01/17/17 10:35 Potassium Chloride Oral Soln NG 20 meq BID RAUL Administration Sucralfate 1 gm 01/16/17 10:45 01/17/17 12:09 Carafate Oral Susp PO Not Given Q6 RAUL - Patient Studies Lab Studies: Microbiology Studies 01/13/17 15:30 Blood Culture - Preliminary Blood-Venous NO GROWTH AFTER 4 DAYS 01/13/17 16:00 Blood Culture - Preliminary Blood-Venous NO GROWTH AFTER 4 DAYS Lab Studies 01/17/17 01/17/17 01/17/17 Range/Units 12:05 12:00 07:14 WBC 13.4 H (4.8-10.8) K/uL RBC 2.97 L (3.80-5.20) Mil/uL Hgb 9.3 L D (11.0-16.0) g/dL Hct 27.5 L (34.0-47.0) % MCV 92.4 (81.0-99.0) fL MCH 31.2 H (27.0-31.0) pg MCHC 33.7 (33.0-37.0) g/dL RDW 14.2 (11.5-14.5) % Plt Count 300 (130-400) K/uL MPV 8.4 (7.2-11.7) fL Neut % (Auto) (50.0-75.0) % Lymph % (Auto) (20.0-40.0) % [place] % (Auto) (0.0-10.0) % Eos % (Auto) (0.0-4.0) % Baso % (Auto) (0.0-2.0) % Neut # (1.8-7.0) K/uL Lymph # (1.0-4.3) K/uL [place] # (0.0-0.8) K/uL Eos # (0.0-0.7) K/uL Baso # (0.0-0.2) K/uL Neutrophils % (Manual) (50-75) % Band Neutrophils % (0-2) % Lymphocytes % (Manual) (20-40) % Monocytes % (Manual) (0-10) % Metamyelocytes % (0-0) % Nucleated RBC % (0-0) % Differential Comment Platelet Estimate (NORMAL) Polychromasia Poikilocytosis (manual Anisocytosis (manual) Retic Count (0.5-1.5) % Puncture Site pCO2 (35-45) mm/Hg pO2 (80-100) mm/Hg HCO3 (21-28) mmol/L ABG pH (7.35-7.45) ABG Total CO2 (22-28) mmol/L ABG O2 Saturation (95-98) % ABG Base Excess (-2.0-3.0) mmol/L ABG Hemoglobin (11.7-17.4) g/dL ABG Carboxyhemoglobin (0.5-1.5) % POC ABG HHb (Measured) (0.0-5.0) % ABG Methemoglobin (0.0-3.0) % Jose Maria Test A-a O2 Difference mm/Hg Respiratory Index Hgb O2 Saturation (95.0-98.0) % Vent Mode Mechanical Rate FiO2 % Tidal Volume PEEP Sodium (132-148) mmol/L Potassium (3.6-5.2) mmol/L Chloride (98-107) mmol/L Carbon Dioxide (22-30) mmol/L Anion Gap (10-20) BUN (7-17) mg/dL Creatinine (0.7-1.2) MG/DL Est GFR ( Amer) Est GFR (Non-Af Amer) POC Glucose (mg/dL) 120 H (65-110) mg/dL Random Glucose (65-105) mg/dL Calcium (8.6-10.4) mg/dl Phosphorus (2.5-4.5) mg/dL Magnesium (1.6-2.3) mg/dL Iron (37-170) ug/dL TIBC (250-450) ug/dL % Saturation (20-55) Ferritin ng/mL Total Bilirubin (0.2-1.3) mg/dL AST (14-36) U/L ALT (9-52) U/L Alkaline Phosphatase (38-126) U/L Lactate Dehydrogenase (313-618) U/L Total Protein (6.3-8.3) g/dL Albumin (3.5-5.0) g/dL Globulin (2.2-3.9) gm/dL Albumin/Globulin Ratio (1.0-2.1) Vitamin B12 (239-931) pg/mL Folate ng/mL Stool Occult Blood Positive H (NEGATIVE) Blood Type Antibody Screen 01/17/17 01/17/17 01/17/17 Range/Units 06:19 06:19 05:39 WBC 15.3 H (4.8-10.8) K/uL RBC 2.32 L (3.80-5.20) Mil/uL Hgb 7.3 L (11.0-16.0) g/dL Hct 21.9 L (34.0-47.0) % MCV 94.3 (81.0-99.0) fL MCH 31.5 H (27.0-31.0) pg MCHC 33.4 (33.0-37.0) g/dL RDW 14.3 (11.5-14.5) % Plt Count 322 (130-400) K/uL MPV 8.8 (7.2-11.7) fL Neut % (Auto) 83.3 H (50.0-75.0) % Lymph % (Auto) 11.6 L (20.0-40.0) % [place] % (Auto) 4.9 (0.0-10.0) % Eos % (Auto) 0.0 (0.0-4.0) % Baso % (Auto) 0.2 (0.0-2.0) % Neut # 12.8 H (1.8-7.0) K/uL Lymph # 1.8 (1.0-4.3) K/uL [place] # 0.8 (0.0-0.8) K/uL Eos # 0.0 (0.0-0.7) K/uL Baso # 0.0 (0.0-0.2) K/uL Neutrophils % (Manual) (50-75) % Band Neutrophils % (0-2) % Lymphocytes % (Manual) (20-40) % Monocytes % (Manual) (0-10) % Metamyelocytes % (0-0) % Nucleated RBC % (0-0) % Differential Comment Platelet Estimate (NORMAL) Polychromasia Poikilocytosis (manual Anisocytosis (manual) Retic Count (0.5-1.5) % Puncture Site pCO2 (35-45) mm/Hg pO2 (80-100) mm/Hg HCO3 (21-28) mmol/L ABG pH (7.35-7.45) ABG Total CO2 (22-28) mmol/L ABG O2 Saturation (95-98) % ABG Base Excess (-2.0-3.0) mmol/L ABG Hemoglobin (11.7-17.4) g/dL ABG Carboxyhemoglobin (0.5-1.5) % POC ABG HHb (Measured) (0.0-5.0) % ABG Methemoglobin (0.0-3.0) % [place] Maria Test A-a O2 Difference mm/Hg Respiratory Index Hgb O2 Saturation (95.0-98.0) % Vent Mode Mechanical Rate FiO2 % Tidal Volume PEEP Sodium 141 (132-148) mmol/L Potassium 3.0 L (3.6-5.2) mmol/L Chloride 104 (98-107) mmol/L Carbon Dioxide 25 (22-30) mmol/L Anion Gap 15 (10-20) BUN 25 H (7-17) mg/dL Creatinine 0.6 L (0.7-1.2) MG/DL Est GFR ( Amer) > 60 Est GFR (Non-Af Amer) > 60 POC Glucose (mg/dL) 119 H (65-110) mg/dL Random Glucose 82 (65-105) mg/dL Calcium 7.7 L (8.6-10.4) mg/dl Phosphorus 1.7 L (2.5-4.5) mg/dL Magnesium 2.4 H (1.6-2.3) mg/dL Iron (37-170) ug/dL TIBC (250-450) ug/dL % Saturation (20-55) Ferritin ng/mL Total Bilirubin 0.6 (0.2-1.3) mg/dL AST 27 (14-36) U/L ALT 53 H (9-52) U/L Alkaline Phosphatase 48 (38-126) U/L Lactate Dehydrogenase (313-618) U/L Total Protein 4.6 L (6.3-8.3) g/dL Albumin 2.6 L (3.5-5.0) g/dL Globulin 2.0 L (2.2-3.9) gm/dL Albumin/Globulin Ratio 1.3 (1.0-2.1) Vitamin B12 (239-931) pg/mL Folate ng/mL Stool Occult Blood (NEGATIVE) Blood Type Antibody Screen 01/17/17 01/17/17 01/17/17 Range/Units 05:33 01:57 00:29 WBC (4.8-10.8) K/uL RBC (3.80-5.20) Mil/uL Hgb (11.0-16.0) g/dL Hct (34.0-47.0) % MCV (81.0-99.0) fL MCH (27.0-31.0) pg MCHC (33.0-37.0) g/dL RDW (11.5-14.5) % Plt Count (130-400) K/uL MPV (7.2-11.7) fL Neut % (Auto) (50.0-75.0) % Lymph % (Auto) (20.0-40.0) % [place] % (Auto) (0.0-10.0) % Eos % (Auto) (0.0-4.0) % Baso % (Auto) (0.0-2.0) % Neut # (1.8-7.0) K/uL Lymph # (1.0-4.3) K/uL [place] # (0.0-0.8) K/uL Eos # (0.0-0.7) K/uL Baso # (0.0-0.2) K/uL Neutrophils % (Manual) (50-75) % Band Neutrophils % (0-2) % Lymphocytes % (Manual) (20-40) % Monocytes % (Manual) (0-10) % Metamyelocytes % (0-0) % Nucleated RBC % (0-0) % Differential Comment Platelet Estimate (NORMAL) Polychromasia Poikilocytosis (manual Anisocytosis (manual) Retic Count (0.5-1.5) % Puncture Site R rad pCO2 30 L (35-45) mm/Hg pO2 67 L (80-100) mm/Hg HCO3 28.0 (21-28) mmol/L ABG pH 7.55 H (7.35-7.45) ABG Total CO2 27.1 (22-28) mmol/L ABG O2 Saturation 96.9 (95-98) % ABG Base Excess 4.0 H (-2.0-3.0) mmol/L ABG Hemoglobin 9.3 L (11.7-17.4) g/dL ABG Carboxyhemoglobin 1.1 (0.5-1.5) % POC ABG HHb (Measured) 3.0 (0.0-5.0) % ABG Methemoglobin 0.8 (0.0-3.0) % [place] Test Pos A-a O2 Difference 323.0 mm/Hg Respiratory Index 4.8 Hgb O2 Saturation 95.1 (95.0-98.0) % Vent Mode Prvc Mechanical Rate 14 FiO2 60.0 % Tidal Volume 450 PEEP 5 Sodium (132-148) mmol/L Potassium (3.6-5.2) mmol/L Chloride (98-107) mmol/L Carbon Dioxide (22-30) mmol/L Anion Gap (10-20) BUN (7-17) mg/dL Creatinine (0.7-1.2) MG/DL Est GFR ( Amer) Est GFR (Non-Af Amer) POC Glucose (mg/dL) 234 H (65-110) mg/dL Random Glucose (65-105) mg/dL Calcium (8.6-10.4) mg/dl Phosphorus (2.5-4.5) mg/dL Magnesium (1.6-2.3) mg/dL Iron (37-170) ug/dL TIBC (250-450) ug/dL % Saturation (20-55) Ferritin ng/mL Total Bilirubin (0.2-1.3) mg/dL AST (14-36) U/L ALT (9-52) U/L Alkaline Phosphatase (38-126) U/L Lactate Dehydrogenase (313-618) U/L Total Protein (6.3-8.3) g/dL Albumin (3.5-5.0) g/dL Globulin (2.2-3.9) gm/dL Albumin/Globulin Ratio (1.0-2.1) Vitamin B12 (239-931) pg/mL Folate ng/mL Stool Occult Blood (NEGATIVE) Blood Type A POSITIVE Antibody Screen Negative 01/16/17 01/16/17 01/16/17 Range/Units 23:41 18:16 18:13 WBC 13.4 H (4.8-10.8) K/uL RBC 2.23 L (3.80-5.20) Mil/uL Hgb 7.0 L (11.0-16.0) g/dL Hct 21.1 L (34.0-47.0) % MCV 94.5 (81.0-99.0) fL MCH 31.3 H (27.0-31.0) pg MCHC 33.2 (33.0-37.0) g/dL RDW 14.2 (11.5-14.5) % Plt Count 283 (130-400) K/uL MPV 8.2 (7.2-11.7) fL Neut % (Auto) 87.0 H (50.0-75.0) % Lymph % (Auto) 6.4 L (20.0-40.0) % [place] % (Auto) 6.4 (0.0-10.0) % Eos % (Auto) 0.0 (0.0-4.0) % Baso % (Auto) 0.2 (0.0-2.0) % Neut # 11.7 H (1.8-7.0) K/uL Lymph # 0.9 L (1.0-4.3) K/uL [place] # 0.9 H (0.0-0.8) K/uL Eos # 0.0 (0.0-0.7) K/uL Baso # 0.0 (0.0-0.2) K/uL Neutrophils % (Manual) 85 H (50-75) % Band Neutrophils % 1 (0-2) % Lymphocytes % (Manual) 6 L (20-40) % Monocytes % (Manual) 6 (0-10) % Metamyelocytes % 2 H (0-0) % Nucleated RBC % 4 H (0-0) % Differential Comment Platelet Estimate Normal (NORMAL) Polychromasia Slight Poikilocytosis (manual Slight Anisocytosis (manual) Moderate Retic Count (0.5-1.5) % Puncture Site pCO2 (35-45) mm/Hg pO2 (80-100) mm/Hg HCO3 (21-28) mmol/L ABG pH (7.35-7.45) ABG Total CO2 (22-28) mmol/L ABG O2 Saturation (95-98) % ABG Base Excess (-2.0-3.0) mmol/L ABG Hemoglobin (11.7-17.4) g/dL ABG Carboxyhemoglobin (0.5-1.5) % POC ABG HHb (Measured) (0.0-5.0) % ABG Methemoglobin (0.0-3.0) % [place] Test A-a O2 Difference mm/Hg Respiratory Index Hgb O2 Saturation (95.0-98.0) % Vent Mode Mechanical Rate FiO2 % Tidal Volume PEEP Sodium (132-148) mmol/L Potassium (3.6-5.2) mmol/L Chloride (98-107) mmol/L Carbon Dioxide (22-30) mmol/L Anion Gap (10-20) BUN (7-17) mg/dL Creatinine (0.7-1.2) MG/DL Est GFR ( Amer) Est GFR (Non-Af Amer) POC Glucose (mg/dL) (65-110) mg/dL Random Glucose (65-105) mg/dL Calcium (8.6-10.4) mg/dl Phosphorus (2.5-4.5) mg/dL Magnesium (1.6-2.3) mg/dL Iron 63 (37-170) ug/dL TIBC 265 (250-450) ug/dL % Saturation 24 (20-55) Ferritin ng/mL Total Bilirubin (0.2-1.3) mg/dL AST (14-36) U/L ALT (9-52) U/L Alkaline Phosphatase (38-126) U/L Lactate Dehydrogenase (313-618) U/L Total Protein (6.3-8.3) g/dL Albumin (3.5-5.0) g/dL Globulin (2.2-3.9) gm/dL Albumin/Globulin Ratio (1.0-2.1) Vitamin B12 (239-931) pg/mL Folate ng/mL Stool Occult Blood Positive H (NEGATIVE) Blood Type Antibody Screen 01/16/17 01/16/17 01/16/17 Range/Units 18:13 18:13 17:52 WBC (4.8-10.8) K/uL RBC (3.80-5.20) Mil/uL Hgb (11.0-16.0) g/dL Hct (34.0-47.0) % MCV (81.0-99.0) fL MCH (27.0-31.0) pg MCHC (33.0-37.0) g/dL RDW (11.5-14.5) % Plt Count (130-400) K/uL MPV (7.2-11.7) fL Neut % (Auto) (50.0-75.0) % Lymph % (Auto) (20.0-40.0) % [place] % (Auto) (0.0-10.0) % Eos % (Auto) (0.0-4.0) % Baso % (Auto) (0.0-2.0) % Neut # (1.8-7.0) K/uL Lymph # (1.0-4.3) K/uL [place] # (0.0-0.8) K/uL Eos # (0.0-0.7) K/uL Baso # (0.0-0.2) K/uL Neutrophils % (Manual) (50-75) % Band Neutrophils % (0-2) % Lymphocytes % (Manual) (20-40) % Monocytes % (Manual) (0-10) % Metamyelocytes % (0-0) % Nucleated RBC % (0-0) % Differential Comment Platelet Estimate (NORMAL) Polychromasia Poikilocytosis (manual Anisocytosis (manual) Retic Count 2.7 H (0.5-1.5) % Puncture Site pCO2 (35-45) mm/Hg pO2 (80-100) mm/Hg HCO3 (21-28) mmol/L ABG pH (7.35-7.45) ABG Total CO2 (22-28) mmol/L ABG O2 Saturation (95-98) % ABG Base Excess (-2.0-3.0) mmol/L ABG Hemoglobin (11.7-17.4) g/dL ABG Carboxyhemoglobin (0.5-1.5) % POC ABG HHb (Measured) (0.0-5.0) % ABG Methemoglobin (0.0-3.0) % [place] Test A-a O2 Difference mm/Hg Respiratory Index Hgb O2 Saturation (95.0-98.0) % Vent Mode Mechanical Rate FiO2 % Tidal Volume PEEP Sodium (132-148) mmol/L Potassium (3.6-5.2) mmol/L Chloride (98-107) mmol/L Carbon Dioxide (22-30) mmol/L Anion Gap (10-20) BUN (7-17) mg/dL Creatinine (0.7-1.2) MG/DL Est GFR ( Amer) Est GFR (Non-Af Amer) POC Glucose (mg/dL) 341 H (65-110) mg/dL Random Glucose (65-105) mg/dL Calcium (8.6-10.4) mg/dl Phosphorus (2.5-4.5) mg/dL Magnesium (1.6-2.3) mg/dL Iron (37-170) ug/dL TIBC (250-450) ug/dL % Saturation (20-55) Ferritin 270.0 ng/mL Total Bilirubin (0.2-1.3) mg/dL AST (14-36) U/L ALT (9-52) U/L Alkaline Phosphatase (38-126) U/L Lactate Dehydrogenase 847 H (313-618) U/L Total Protein (6.3-8.3) g/dL Albumin (3.5-5.0) g/dL Globulin (2.2-3.9) gm/dL Albumin/Globulin Ratio (1.0-2.1) Vitamin B12 963 H (239-931) pg/mL Folate 13.8 ng/mL Stool Occult Blood (NEGATIVE) Blood Type Antibody Screen Laboratory Results - last 24 hr 01/16/17 01/16/17 01/16/17 17:52 18:13 18:13 WBC RBC Hgb Hct MCV MCH MCHC RDW Plt Count MPV Neut % (Auto) Lymph % (Auto) [place] % (Auto) Eos % (Auto) Baso % (Auto) Neut # Lymph # [place] # Eos # Baso # Neutrophils % (Manual) Band Neutrophils % Lymphocytes % (Manual) Monocytes % (Manual) Metamyelocytes % Nucleated RBC % Differential Comment Platelet Estimate Polychromasia Poikilocytosis (manual Anisocytosis (manual) Retic Count 2.7 H Puncture Site pCO2 pO2 HCO3 ABG pH ABG Total CO2 ABG O2 Saturation ABG Base Excess ABG Hemoglobin ABG Carboxyhemoglobin POC ABG HHb (Measured) ABG Methemoglobin [place] Test A-a O2 Difference Respiratory Index Hgb O2 Saturation Vent Mode Mechanical Rate FiO2 Tidal Volume PEEP Sodium Potassium Chloride Carbon Dioxide Anion Gap BUN Creatinine Est GFR ( Amer) Est GFR (Non-Af Amer) POC Glucose (mg/dL) 341 H Random Glucose Calcium Phosphorus Magnesium Iron TIBC % Saturation Ferritin 270.0 Total Bilirubin AST ALT Alkaline Phosphatase Lactate Dehydrogenase 847 H Total Protein Albumin Globulin Albumin/Globulin Ratio Vitamin B12 963 H Folate 13.8 Stool Occult Blood Blood Type Antibody Screen 01/16/17 01/16/17 01/16/17 18:13 18:16 23:41 WBC 13.4 H RBC 2.23 L Hgb 7.0 L Hct 21.1 L MCV 94.5 MCH 31.3 H MCHC 33.2 RDW 14.2 Plt Count 283 MPV 8.2 Neut % (Auto) 87.0 H Lymph % (Auto) 6.4 L [place] % (Auto) 6.4 Eos % (Auto) 0.0 Baso % (Auto) 0.2 Neut # 11.7 H Lymph # 0.9 L [place] # 0.9 H Eos # 0.0 Baso # 0.0 Neutrophils % (Manual) 85 H Band Neutrophils % 1 Lymphocytes % (Manual) 6 L Monocytes % (Manual) 6 Metamyelocytes % 2 H Nucleated RBC % 4 H Differential Comment Platelet Estimate Normal Polychromasia Slight Poikilocytosis (manual Slight Anisocytosis (manual) Moderate Retic Count Puncture Site pCO2 pO2 HCO3 ABG pH ABG Total CO2 ABG O2 Saturation ABG Base Excess ABG Hemoglobin ABG Carboxyhemoglobin POC ABG HHb (Measured) ABG Methemoglobin [place] Test A-a O2 Difference Respiratory Index Hgb O2 Saturation Vent Mode Mechanical Rate FiO2 Tidal Volume PEEP Sodium Potassium Chloride Carbon Dioxide Anion Gap BUN Creatinine Est GFR ( Amer) Est GFR (Non-Af Amer) POC Glucose (mg/dL) Random Glucose Calcium Phosphorus Magnesium Iron 63 TIBC 265 % Saturation 24 Ferritin Total Bilirubin AST ALT Alkaline Phosphatase Lactate Dehydrogenase Total Protein Albumin Globulin Albumin/Globulin Ratio Vitamin B12 Folate Stool Occult Blood Positive H Blood Type Antibody Screen 01/17/17 01/17/17 01/17/17 00:29 01:57 05:33 WBC RBC Hgb Hct MCV MCH MCHC RDW Plt Count MPV Neut % (Auto) Lymph % (Auto) [place] % (Auto) Eos % (Auto) Baso % (Auto) Neut # Lymph # [place] # Eos # Baso # Neutrophils % (Manual) Band Neutrophils % Lymphocytes % (Manual) Monocytes % (Manual) Metamyelocytes % Nucleated RBC % Differential Comment Platelet Estimate Polychromasia Poikilocytosis (manual Anisocytosis (manual) Retic Count Puncture Site R rad pCO2 30 L pO2 67 L HCO3 28.0 ABG pH 7.55 H ABG Total CO2 27.1 ABG O2 Saturation 96.9 ABG Base Excess 4.0 H ABG Hemoglobin 9.3 L ABG Carboxyhemoglobin 1.1 POC ABG HHb (Measured) 3.0 ABG Methemoglobin 0.8 [place] Test Pos A-a O2 Difference 323.0 Respiratory Index 4.8 Hgb O2 Saturation 95.1 Vent Mode Prvc Mechanical Rate 14 FiO2 60.0 Tidal Volume 450 PEEP 5 Sodium Potassium Chloride Carbon Dioxide Anion Gap BUN Creatinine Est GFR ( Amer) Est GFR (Non-Af Amer) POC Glucose (mg/dL) 234 H Random Glucose Calcium Phosphorus Magnesium Iron TIBC % Saturation Ferritin Total Bilirubin AST ALT Alkaline Phosphatase Lactate Dehydrogenase Total Protein Albumin Globulin Albumin/Globulin Ratio Vitamin B12 Folate Stool Occult Blood Blood Type A POSITIVE Antibody Screen Negative 01/17/17 01/17/17 01/17/17 05:39 06:19 06:19 WBC 15.3 H RBC 2.32 L Hgb 7.3 L Hct 21.9 L MCV 94.3 MCH 31.5 H MCHC 33.4 RDW 14.3 Plt Count 322 MPV 8.8 Neut % (Auto) 83.3 H Lymph % (Auto) 11.6 L [place] % (Auto) 4.9 Eos % (Auto) 0.0 Baso % (Auto) 0.2 Neut # 12.8 H Lymph # 1.8 [place] # 0.8 Eos # 0.0 Baso # 0.0 Neutrophils % (Manual) Band Neutrophils % Lymphocytes % (Manual) Monocytes % (Manual) Metamyelocytes % Nucleated RBC % Differential Comment Platelet Estimate Polychromasia Poikilocytosis (manual Anisocytosis (manual) Retic Count Puncture Site pCO2 pO2 HCO3 ABG pH ABG Total CO2 ABG O2 Saturation ABG Base Excess ABG Hemoglobin ABG Carboxyhemoglobin POC ABG HHb (Measured) ABG Methemoglobin Jose Maria Test A-a O2 Difference Respiratory Index Hgb O2 Saturation Vent Mode Mechanical Rate FiO2 Tidal Volume PEEP Sodium 141 Potassium 3.0 L Chloride 104 Carbon Dioxide 25 Anion Gap 15 BUN 25 H Creatinine 0.6 L Est GFR ( Amer) > 60 Est GFR (Non-Af Amer) > 60 POC Glucose (mg/dL) 119 H Random Glucose 82 Calcium 7.7 L Phosphorus 1.7 L Magnesium 2.4 H Iron TIBC % Saturation Ferritin Total Bilirubin 0.6 AST 27 ALT 53 H Alkaline Phosphatase 48 Lactate Dehydrogenase Total Protein 4.6 L Albumin 2.6 L Globulin 2.0 L Albumin/Globulin Ratio 1.3 Vitamin B12 Folate Stool Occult Blood Blood Type Antibody Screen 01/17/17 01/17/17 01/17/17 07:14 12:00 12:05 WBC 13.4 H RBC 2.97 L Hgb 9.3 L D Hct 27.5 L MCV 92.4 MCH 31.2 H MCHC 33.7 RDW 14.2 Plt Count 300 MPV 8.4 Neut % (Auto) Lymph % (Auto) [place] % (Auto) Eos % (Auto) Baso % (Auto) Neut # Lymph # [place] # Eos # Baso # Neutrophils % (Manual) Band Neutrophils % Lymphocytes % (Manual) Monocytes % (Manual) Metamyelocytes % Nucleated RBC % Differential Comment Platelet Estimate Polychromasia Poikilocytosis (manual Anisocytosis (manual) Retic Count Puncture Site pCO2 pO2 HCO3 ABG pH ABG Total CO2 ABG O2 Saturation ABG Base Excess ABG Hemoglobin ABG Carboxyhemoglobin POC ABG HHb (Measured) ABG Methemoglobin Jose Maria Test A-a O2 Difference Respiratory Index Hgb O2 Saturation Vent Mode Mechanical Rate FiO2 Tidal Volume PEEP Sodium Potassium Chloride Carbon Dioxide Anion Gap BUN Creatinine Est GFR ( Amer) Est GFR (Non-Af Amer) POC Glucose (mg/dL) 120 H Random Glucose Calcium Phosphorus Magnesium Iron TIBC % Saturation Ferritin Total Bilirubin AST ALT Alkaline Phosphatase Lactate Dehydrogenase Total Protein Albumin Globulin Albumin/Globulin Ratio Vitamin B12 Folate Stool Occult Blood Positive H Blood Type Antibody Screen Critical Care Progress Note - Nutrition Nutrition: Nutrition Category Date Time Status NPO Diet [DIET] Diets 01/17/17 Breakfast Active Attending/Attestation - Attestation I have personally seen and examined this patient.: Yes I have fully participated in the care of the patient.: Yes I have reviewed all pertinent clinical information: Yes Notes (Text): 01/17/17 17:37 I have seen and examined the patient. Medical records, lab studies, and imaging were reviewed by me and a management plan was formulated on multidisciplinary rounds with resident Dr. Kruse. I agree with their above documented assessment and plan. Patient was tolerating PS trials, extubated today. She has persistent fluctuating A-A gradient on ABG despite normal oxygen saturations, also asymptomatic. Persistent leucocytosis, will need to change line to PICC line. Critical Care Time 35 minutes. Multi-disciplinary rounds were performed with house staff, nursing, speech therapy, respiratory therapy, pharmacy and nutrition with integrated input from the primary team/attending and other consulting services. The documented time is cumulative and includes review of patient data/exams/labs/chart review and examination of the patient on rounds and throughout the day; time is exclusive of any procedures or teaching time. 01/17/17 17:40
[2017-01-17] MEDS: MethylPREDNISolone 40 mg Vial IVP SCH ×2 (10:34→21:05)
[2017-01-17] MEDS: Fluconazole IV 200mg/100 ml NS 100 ML IVPB SCH (10:35)
[2017-01-17] MEDS: Potassium Chloride 20 mEq/15 ml LIQ UD NG SCH ×2 (10:35→18:07)
[2017-01-17] MEDS ORDERED: Potassium Phosphate 15 MMOLE in Sodium Chloride 0.9% 250 ML IV ONE ×2 (11:00→16:00)
[2017-01-17 12:02] LABS: WHITE BLOOD COUNT 13.4 K/uL (4.8-10.8)
[2017-01-17 12:07] LABS: HEMATOCRIT 27.5 % (34.0-47.0); MEAN CELL VOLUME 92.4 fL (81.0-99.0); MEAN CORPUSCULAR HEMOGLOBIN 31.2 pg (27.0-31.0); MEAN CORPUSCULAR HGB CONC 33.7 g/dL (33.0-37.0); MEAN PLATELET VOLUME 8.4 fL (7.2-11.7); RED CELL DISTRIBUTION WIDTH 14.2 % (11.5-14.5)
[2017-01-17] MEDS: Vancomycin 1 gm/NS 200 ml 1 GM/200 ML BAG IVPB SCH (12:08)
[2017-01-17] MEDS ORDERED: Etomidate 20 mg/10ml Inj IV ONE (13:34)
--- NOTE | 2017-01-17 17:05 | RAD ---
PROCEDURE: CHEST RADIOGRAPH, 1 VIEW HISTORY: intubated COMPARISON: Comparison is made to 01/16/2017 FINDINGS: LUNGS: Interval improvement in the lungs since the previous study. Persistent hazy opacity at the left lower lobe. The ET tube tip seen approximately 1 centimeter above the janelle. PLEURA: Opacity at the costophrenic angles suggestive of bilateral pleural effusions again noted. CARDIOVASCULAR: Normal. OSSEOUS STRUCTURES: No significant abnormalities. VISUALIZED UPPER ABDOMEN: The NG tube seen extending to the abdomen. OTHER FINDINGS: There is right jugular central line seen in place. IMPRESSION: Interval mild improvement in the lungs since the previous exam. Otherwise no significant interval change.
--- NOTE | 2017-01-17 21:22 | CP.PCM.PN ---
Subjective - Date & Time of Evaluation Date of Evaluation: 01/15/17 Time of Evaluation: 08:15 - Subjective Subjective: Patient seen and evaluated Intubated and sedated Physical Examination - Constitutional Appears: Non-toxic, No Acute Distress - Head Exam Head Exam: ATRAUMATIC, NORMAL INSPECTION, NORMOCEPHALIC - Eye Exam Eye Exam: EOMI, Normal appearance, PERRL Pupil Exam: NORMAL ACCOMODATION, PERRL - ENT Exam ENT Exam: Mucous Membranes Moist - Neck Exam Neck Exam: Full ROM - Respiratory Exam Respiratory Exam: Rhonchi - Cardiovascular Exam Cardiovascular Exam: +S1, +S2 - GI/Abdominal Exam GI & Abdominal Exam: Soft, Normal Bowel Sounds - Neurological Exam Neurological Exam: Awake - Psychiatric Exam Psychiatric exam: Flat Affect - Skin Skin Exam: Dry, Intact, Warm Additional comments: ecchymosis on flexor surface of left arm Objective - Vital Signs/Intake and Output Vital Signs (last 24 hours): Temp Pulse Resp BP Pulse Ox 97.3 F L 69 25 H 113/63 100 01/17/17 20:00 01/17/17 20:15 01/17/17 20:15 01/17/17 20:15 01/17/17 20:15 Intake and Output: 01/17/17 01/18/17 18:59 06:59 Intake Total 1753 Output Total 380 Balance 1373 - Medications Medications: Current Medications Albuterol Sulfate (Albuterol 0.083% Inhal Jeri (2.5 Mg/3 Ml) Ud) 2.5 mg INH RQ4 [facility] Last Admin: 01/17/17 20:20 Dose: 2.5 mg Piperacillin Sod/Tazobactam Sod (Zosyn 3.375 Gm Iv Premix) 3.375 gm in 50 mls @ 100 mls/hr IVPB Q8H [facility] Last Admin: 01/17/17 18:09 Dose: 100 mls/hr Fluconazole (Diflucan Iv 200 Mg/100 Ml Ns) 100 mls @ 100 mls/hr IVPB DAILY [facility] Last Admin: 01/17/17 10:35 Dose: 100 mls/hr Vancomycin/Sodium Chloride (Vancocin) 1 gm in 200 mls @ 133.333 mls/hr IVPB Q24H [facility] Stop: 01/20/17 12:01 Last Admin: 01/17/17 12:08 Dose: 133.333 mls/hr Insulin Aspart (Novolog) 0 unit SC Q6H [facility] PRN Reason: Protocol Last Admin: 01/17/17 18:16 Dose: 2 unit Lisinopril (Zestril) 5 mg PO DAILY [facility] Last Admin: 01/17/17 10:36 Dose: 5 mg Methylprednisolone (Solu-Medrol) 20 mg IVP Q12 [facility] Last Admin: 01/17/17 21:05 Dose: 20 mg Pantoprazole Sodium (Protonix Inj) 40 mg IVP Q12 [facility] Last Admin: 01/17/17 10:35 Dose: 40 mg Potassium Chloride (Potassium Chloride Oral Soln) 20 meq NG BID [facility] Last Admin: 01/17/17 18:07 Dose: Not Given Sucralfate (Carafate Oral Susp) 1 gm PO Q6 [facility] Last Admin: 01/17/17 18:07 Dose: Not Given - Labs Labs: 01/17/17 12:00 01/17/17 06:19 PT 10.6 SECONDS (9.7-12.2) 01/13/17 18:26 INR 1.0 01/13/17 18:26 APTT 24 SECONDS (21-34) 01/13/17 18:26 Assessment and Plan - Assessment and Plan (Free Text) Assessment: Assessment and Plan - Assessment and Plan (Free Text) Assessment: CHF -BNP 91236 -Echo: Normal EF, mild pulmonary hypertension -Lasix 40mg IV held by primary due to episodes of hypotension. -One dose of Lasix today -Monitor Daily weight and I&Os HTN -Continue Lisinopril 5mg -Hold parameters in place for hypotension History of PE -Lovenox SC held due to bleeding from ET tube Hyperlipidemia -Patient would benefit from Crestor Prophylactic Measure -Anticoagulation held due to bleeding from ET tube -PPI 40 mg daily GT
--- NOTE | 2017-01-17 21:23 | CP.PCM.PN ---
Subjective - Date & Time of Evaluation Date of Evaluation: 01/16/17 Time of Evaluation: 06:30 - Subjective Subjective: Patient seen and evaluated Sedated and intubated Objective - Vital Signs/Intake and Output Vital Signs (last 24 hours): Temp Pulse Resp BP Pulse Ox 97.3 F L 69 25 H 113/63 100 01/17/17 20:00 01/17/17 20:15 01/17/17 20:15 01/17/17 20:15 01/17/17 20:15 Intake and Output: 01/17/17 01/18/17 18:59 06:59 Intake Total 1753 Output Total 380 Balance 1373 - Medications Medications: Current Medications Albuterol Sulfate (Albuterol 0.083% Inhal Jeri (2.5 Mg/3 Ml) Ud) 2.5 mg INH RQ4 [facility] Last Admin: 01/17/17 20:20 Dose: 2.5 mg Piperacillin Sod/Tazobactam Sod (Zosyn 3.375 Gm Iv Premix) 3.375 gm in 50 mls @ 100 mls/hr IVPB Q8H [facility] Last Admin: 01/17/17 18:09 Dose: 100 mls/hr Fluconazole (Diflucan Iv 200 Mg/100 Ml Ns) 100 mls @ 100 mls/hr IVPB DAILY [facility] Last Admin: 01/17/17 10:35 Dose: 100 mls/hr Vancomycin/Sodium Chloride (Vancocin) 1 gm in 200 mls @ 133.333 mls/hr IVPB Q24H [facility] Stop: 01/20/17 12:01 Last Admin: 01/17/17 12:08 Dose: 133.333 mls/hr Insulin Aspart (Novolog) 0 unit SC Q6H [facility] PRN Reason: Protocol Last Admin: 01/17/17 18:16 Dose: 2 unit Lisinopril (Zestril) 5 mg PO DAILY [facility] Last Admin: 01/17/17 10:36 Dose: 5 mg Methylprednisolone (Solu-Medrol) 20 mg IVP Q12 [facility] Last Admin: 01/17/17 21:05 Dose: 20 mg Pantoprazole Sodium (Protonix Inj) 40 mg IVP Q12 [facility] Last Admin: 01/17/17 10:35 Dose: 40 mg Potassium Chloride (Potassium Chloride Oral Soln) 20 meq NG BID [facility] Last Admin: 01/17/17 18:07 Dose: Not Given Sucralfate (Carafate Oral Susp) 1 gm PO Q6 [facility] Last Admin: 01/17/17 18:07 Dose: Not Given - Labs Labs: 01/17/17 12:00 01/17/17 06:19 PT 10.6 SECONDS (9.7-12.2) 01/13/17 18:26 INR 1.0 01/13/17 18:26 APTT 24 SECONDS (21-34) 01/13/17 18:26
--- NOTE | 2017-01-17 21:24 | CP.PCM.PN ---
Subjective - Date & Time of Evaluation Date of Evaluation: 01/17/17 Time of Evaluation: 07:45 - Subjective Subjective: Patient seen and evaluated Clinical condition unchanged Physical examination - Constitutional Appears: Non-toxic, No Acute Distress - Head Exam Head Exam: ATRAUMATIC, NORMAL INSPECTION, NORMOCEPHALIC - Eye Exam Eye Exam: EOMI - Neck Exam Neck Exam: Full ROM - Respiratory Exam Respiratory Exam: Decreased Breath Sounds, NORMAL BREATHING PATTERN - Cardiovascular Exam Cardiovascular Exam: +S1, +S2 - GI/Abdominal Exam GI & Abdominal Exam: Soft, Normal Bowel Sounds - Extremities Exam Extremities Exam: Full ROM, Pedal Edema (UE and LE edema). absent: Tenderness - Neurological Exam Neurological Exam: Awake - Psychiatric Exam Psychiatric exam: Flat Affect - Skin Skin Exam: Dry Additional comments: ecchymosis on left hand noted Objective - Vital Signs/Intake and Output Vital Signs (last 24 hours): Temp Pulse Resp BP Pulse Ox 97.3 F L 69 25 H 113/63 100 01/17/17 20:00 01/17/17 20:15 01/17/17 20:15 01/17/17 20:15 01/17/17 20:15 Intake and Output: 01/17/17 01/18/17 18:59 06:59 Intake Total 1753 Output Total 380 Balance 1373 - Medications Medications: Current Medications Albuterol Sulfate (Albuterol 0.083% Inhal Jeri (2.5 Mg/3 Ml) Ud) 2.5 mg INH RQ4 [facility] [place] Last Admin: 01/17/17 20:20 Dose: 2.5 mg Piperacillin Sod/Tazobactam Sod (Zosyn 3.375 Gm Iv Premix) 3.375 gm in 50 mls @ 100 mls/hr IVPB Q8H [facility] [place] Last Admin: 01/17/17 18:09 Dose: 100 mls/hr Fluconazole (Diflucan Iv 200 Mg/100 Ml Ns) 100 mls @ 100 mls/hr IVPB DAILY [facility] [place] Last Admin: 01/17/17 10:35 Dose: 100 mls/hr Vancomycin/Sodium Chloride (Vancocin) 1 gm in 200 mls @ 133.333 mls/hr IVPB Q24H [facility] [place] Stop: 01/20/17 12:01 Last Admin: 01/17/17 12:08 Dose: 133.333 mls/hr Insulin Aspart (Novolog) 0 unit SC Q6H [facility] [place] PRN Reason: Protocol Last Admin: 01/17/17 18:16 Dose: 2 unit Lisinopril (Zestril) 5 mg PO DAILY [facility] [place] Last Admin: 01/17/17 10:36 Dose: 5 mg Methylprednisolone (Solu-Medrol) 20 mg IVP Q12 [facility] [place] Last Admin: 01/17/17 21:05 Dose: 20 mg Pantoprazole Sodium (Protonix Inj) 40 mg IVP Q12 [facility] [place] Last Admin: 01/17/17 10:35 Dose: 40 mg Potassium Chloride (Potassium Chloride Oral Soln) 20 meq NG BID [facility] Last Admin: 01/17/17 18:07 Dose: Not Given Sucralfate (Carafate Oral Susp) 1 gm PO Q6 [facility] [place] Last Admin: 01/17/17 18:07 Dose: Not Given - Labs Labs: 01/17/17 12:00 01/17/17 06:19 PT 10.6 SECONDS (9.7-12.2) 01/13/17 18:26 INR 1.0 01/13/17 18:26 APTT 24 SECONDS (21-34) 01/13/17 18:26 Assessment and Plan - Assessment and Plan (Free Text) Assessment: Assessment and Plan - Assessment and Plan (Free Text) Assessment: CHF -BNP 60545 -Echo: Normal EF, mild pulmonary hypertension -Lasix 40mg IV held by primary due to episodes of hypotension. -Monitor Daily weight and I&Os HTN -Continue Lisinopril 5mg -Hold parameters in place for hypotension History of PE -Lovenox SC held due to bleeding from ET tube Hyperlipidemia -Patient would benefit from Crestor Prophylactic Measure -Anticoagulation held due to bleeding from ET tube -PPI 40 mg IV Q12
[2017-01-18] MEDS: Albuterol 0.083% Inhal Sol (2.5 mg/3 mL) UD INH SCH ×7 (00:19→23:51)
[2017-01-18] MEDS: Piperacill/Tazo 3.375gm in Dex 3.375 GM/50 ML BAG IVPB SCH ×2 (01:53→10:50)
[2017-01-18] MEDS: Sucralfate 1 gm/10 ml Oral Susp UD PO SCH ×3 (05:23→18:25)
[2017-01-18] MEDS: (Novolog) Insulin Aspart, Recombinant 100 u/ml 10 ml vial SC SCH ×3 (05:23→18:25)
[2017-01-18 06:30] LABS: BASO % 0.2 % (0.0-2.0); HEMATOCRIT 30.2 % (34.0-47.0); LYMPH # 0.3 K/uL (1.0-4.3); LYMPH % 2.3 % (20.0-40.0); MEAN CELL VOLUME 94.8 fL (81.0-99.0); MEAN CORPUSCULAR HEMOGLOBIN 31.8 pg (27.0-31.0); MEAN CORPUSCULAR HGB CONC 33.6 g/dL (33.0-37.0); MONO # 0.2 K/uL (0.0-0.8); MONO % 1.8 % (0.0-10.0); NRBC % 1.8 % (0.0-2.0); PLATELET COUNT 274 K/uL (130-400); RED CELL DISTRIBUTION WIDTH 14.7 % (11.5-14.5); WHITE BLOOD COUNT 12.1 K/uL (4.8-10.8)
[2017-01-18 06:41] LABS: CHLORIDE 108 mmol/L (98-107); POTASSIUM 4.4 mmol/L (3.6-5.2); SODIUM 143 mmol/L (132-148)
[2017-01-18 06:43] LABS: ABG ALLEN TEST POS; ARTERIAL BLOOD GAS MODE BiPAP; ARTERIAL BLOOD HGB O2 SAT 96.9 % (95.0-98.0); CARBOXYHEMOGLOBIN 1.4 % (0.5-1.5); DRAW SITE RR; HHB 0.6 % (0.0-5.0); METHEMOGLOBIN 1.1 % (0.0-3.0)
[2017-01-18 06:43] LABS: AST/SGOT 55 U/L (14-36); BILIRUBIN,TOTAL 0.8 mg/dL (0.2-1.3); CARBON DIOXIDE 21 mmol/L (22-30); GFR AFRICAN-AMERICAN > 60
[2017-01-18 06:44] LABS: ALKALINE PHOSPHATASE 59 U/L (38-126); ALT/SGPT 75 U/L (9-52); BLOOD UREA NITROGEN 19 mg/dL (7-17); CALCIUM 7.8 mg/dl (8.6-10.4); GLUCOSE,RANDOM 160 mg/dL (65-105); PHOSPHOROUS 4.2 mg/dL (2.5-4.5); TOTAL PROTEIN 5.2 g/dL (6.3-8.3)
[2017-01-18 06:45] LABS: MAGNESIUM 2.4 mg/dL (1.6-2.3)
[2017-01-18 06:50] LABS: ALB/GLOB RATIO 1.2 (1.0-2.1)
--- NOTE | 2017-01-18 07:21 | CP.PCM.PN ---
Subjective - Date & Time of Evaluation Date of Evaluation: 01/18/17 Time of Evaluation: 07:19 - Subjective Subjective: Patient denies having nausea, vomiting, abdominal pain. Objective - Vital Signs/Intake and Output Vital Signs (last 24 hours): Temp Pulse Resp BP Pulse Ox 98 F 101 H 30 H 127/70 100 01/18/17 04:00 01/18/17 06:00 01/18/17 06:00 01/18/17 05:15 01/18/17 06:00 Intake and Output: 01/18/17 01/18/17 06:59 18:59 Intake Total 50 Output Total 500 Balance -450 - Medications Medications: Current Medications Albuterol Sulfate (Albuterol 0.083% Inhal Jeri (2.5 Mg/3 Ml) Ud) 2.5 mg INH RQ4 [facility] Last Admin: 01/18/17 03:05 Dose: 2.5 mg Piperacillin Sod/Tazobactam Sod (Zosyn 3.375 Gm Iv Premix) 3.375 gm in 50 mls @ 100 mls/hr IVPB Q8H [facility] Last Admin: 01/18/17 01:53 Dose: 100 mls/hr Fluconazole (Diflucan Iv 200 Mg/100 Ml Ns) 100 mls @ 100 mls/hr IVPB DAILY [facility] Last Admin: 01/17/17 10:35 Dose: 100 mls/hr Vancomycin/Sodium Chloride (Vancocin) 1 gm in 200 mls @ 133.333 mls/hr IVPB Q24H [facility] Stop: 01/20/17 12:01 Last Admin: 01/17/17 12:08 Dose: 133.333 mls/hr Insulin Aspart (Novolog) 0 unit SC Q6H [facility] PRN Reason: Protocol Last Admin: 01/18/17 05:23 Dose: Not Given Lisinopril (Zestril) 5 mg PO DAILY [facility] Last Admin: 01/17/17 10:36 Dose: 5 mg Methylprednisolone (Solu-Medrol) 20 mg IVP Q12 [facility] Last Admin: 01/17/17 21:05 Dose: 20 mg Pantoprazole Sodium (Protonix Inj) 40 mg IVP Q12 [facility] Last Admin: 01/17/17 23:47 Dose: 40 mg Potassium Chloride (Potassium Chloride Oral Soln) 20 meq NG BID [facility] Last Admin: 01/17/17 18:07 Dose: Not Given Sucralfate (Carafate Oral Susp) 1 gm PO Q6 [facility] Last Admin: 01/18/17 05:23 Dose: Not Given - Labs Labs: 01/18/17 06:24 01/18/17 06:24 PT 10.6 SECONDS (9.7-12.2) 01/13/17 18:26 INR 1.0 01/13/17 18:26 APTT 24 SECONDS (21-34) 01/13/17 18:26 - Constitutional Appears: No Acute Distress - Head Exam Head Exam: ATRAUMATIC, NORMOCEPHALIC - Eye Exam Eye Exam: EOMI, PERRL - Neck Exam Neck Exam: absent: Lymphadenopathy, Thyromegaly - Respiratory Exam Respiratory Exam: NORMAL BREATHING PATTERN. absent: Rales, Wheezes - Cardiovascular Exam Cardiovascular Exam: REGULAR RHYTHM, +S1, +S2. absent: Gallop, Rubs, Murmur - GI/Abdominal Exam GI & Abdominal Exam: Soft, Normal Bowel Sounds. absent: Tenderness, Mass, Organomegaly - Rectal Exam Rectal Exam: absent: Deferred - Extremities Exam Extremities Exam: absent: Calf Tenderness, Pedal Edema Assessment and Plan (1) Anemia Assessment & Plan: Patient had significant drop in hemoglobin and stool positive for occult blood. the last HGB is 10.1. The EGD showed no significant pathology. Will plan for colonoscopy when stable. Status: Acute
[2017-01-18 08:11] LABS: MYELOCYTE 1 % (0-0); NEUTROPHIL 94 % (50-75); NUCLEATED RED BLOOD CELL 1 % (0-0); TOTAL CELLS COUNTED 100
--- NOTE | 2017-01-18 08:20 | RAD ---
HISTORY: s/p extubation COMPARISON: Comparison is made to 01/17/2017 FINDINGS: LUNGS: Interval appearance of focal opacity at the right lower lung since the previous exam. Given the rapid appearance of this opacity the possibility of atelectasis should be considered. The patient status post extubation since the previous study. PLEURA: Findings again suggestive of right pleural effusion. CARDIOVASCULAR: Normal. OSSEOUS STRUCTURES: No significant abnormalities. VISUALIZED UPPER ABDOMEN: Interval removal of the previously seen NG tube. OTHER FINDINGS: None. IMPRESSION: New opacity at the right lower lung likely represent atelectasis. Persistent right pleural effusion.
[2017-01-18] MEDS: MethylPREDNISolone 40 mg Vial IVP SCH (09:06)
[2017-01-18] MEDS: Potassium Chloride 20 mEq/15 ml LIQ UD NG SCH (09:15)
--- NOTE | 2017-01-18 09:29 | CP.CCUPN ---
<Breann Kruse E - Last Filed: 01/18/17 13:49> CCU Subjective - Physician Review Subjective (Free Text): Patient was seen and examined at bedside. Patient was alert, awake and responsive to verbal commands. Patient is currently intubated. Patient nodded "NO" to chest pain, SOB, abdominal pain, fever, chills, nausea. Patient was extubated yesterday and tolerated pressure support overnight. Patient was switched from pressure support to 4L nasal cannula since 11:30am. Patient tolerated pureed diet with nectar thick liquid. CCU Objective - Vital Signs / Intake & Output Vital Signs (Last 4 hours): Vital Signs Temp Pulse Resp BP Pulse Ox 01/18/17 09:00 91 H 33 H 100 01/18/17 08:14 91 H 27 H 143/74 100 01/18/17 08:10 93 H 01/18/17 08:00 97.4 F L 88 21 100 01/18/17 07:14 93 H 30 H 133/81 100 01/18/17 07:00 87 22 100 01/18/17 06:00 101 H 30 H 100 01/18/17 05:54 102 H Intake and Output (Last 8hrs): Intake & Output 01/17/17 01/18/17 01/18/17 22:59 06:59 14:59 Intake Total 239 50 Output Total 350 340 70 Balance -111 -290 -70 Weight 134 lb 11.2 oz Intake: Intake, IV Amount 239 50 Right Medial Port 189 50 Internal Jugular Right Proximal Port 50 Internal Jugular Output: Urine 350 340 70 Urethral ([place]) 350 340 70 - Physical Exam Head: Positive for: Atraumatic, Normocephalic Pupils: Positive for: PERRL Extroacular Muscles: Positive for: EOMI Mouth: Positive for: Other (w/ dentures) Nose (External): Positive for: Atraumatic. Negative for: Abrasion, Contusion, Laceration Neck: Negative for: JVD, Lymphadenopathy Respiratory/Chest: Positive for: Clear to Auscultation, Other (on ventilator). Negative for: Respiratory Distress Cardiovascular: Positive for: Regular Rate and Rhythm, Normal S1, S2. Negative for: Murmurs, Tachycardic Abdomen: Positive for: Normal Bowel Sounds. Negative for: Tenderness, Distention Upper Extremity: Positive for: NORMAL PULSES. Negative for: Edema Lower Extremity: Positive for: NORMAL PULSES. Negative for: Edema Neurological: Negative for: Speech Normal Skin: Positive for: Warm, Normal Color Psychiatric: Positive for: Alert - Medications Active Medications: Active Medications Generic Name Dose Route Start Last Admin Trade Name Freq PRN Reason Stop Dose Admin Albuterol Sulfate 2.5 mg 01/13/17 16:00 01/18/17 08:07 Albuterol 0.083% Inhal Jeri (2.5 Mg/3 Ml) Ud INH 2.5 mg RQ4 RAUL Administration Piperacillin Sod/Tazobactam Sod 3.375 gm in 50 mls @ 100 mls/hr 01/08/17 10: 30 01/18/17 01:53 Zosyn 3.375 Gm Iv Premix IVPB 100 mls/hr Q8H RAUL Administration Fluconazole 100 mls @ 100 mls/hr 01/13/17 10:00 01/17/17 10:35 Diflucan Iv 200 Mg/100 Ml Ns IVPB 100 mls/hr DAILY RAUL Administration Vancomycin/Sodium Chloride 1 gm in 200 mls @ 133.333 mls/hr 01/15/17 12:00 12:08 Vancocin IVPB 01/20/17 12:01 133.333 mls/hr Q24H RAUL Administration Insulin Aspart 0 unit 01/16/17 18:00 01/18/17 05:23 Novolog SC Not Given Q6H [facility] Protocol Lisinopril 5 mg 01/09/17 10:00 01/17/17 10:36 Zestril PO 5 mg DAILY RAUL Administration Methylprednisolone 20 mg 01/17/17 10:00 01/18/17 09:06 Solu-Medrol IVP 20 mg Q12 RAUL Administration Pantoprazole Sodium 40 mg 01/16/17 10:45 01/18/17 09:06 Protonix Inj IVP 40 mg Q12 RAUL Administration Potassium Chloride 20 meq 01/13/17 10:00 01/18/17 09:15 Potassium Chloride Oral Soln NG Not Given BID RAUL Sucralfate 1 gm 01/16/17 10:45 01/18/17 05:23 Carafate Oral Susp PO Not Given Q6 RAUL - Patient Studies Lab Studies: Microbiology Studies 01/13/17 15:30 Blood Culture - Preliminary Blood-Venous NO GROWTH AFTER 4 DAYS 01/13/17 16:00 Blood Culture - Preliminary Blood-Venous NO GROWTH AFTER 4 DAYS Lab Studies 01/18/17 01/18/17 01/18/17 Range/Units 06:42 06:40 06:24 WBC (4.8-10.8) K/uL RBC (3.80-5.20) Mil/uL Hgb (11.0-16.0) g/dL Hct (34.0-47.0) % MCV (81.0-99.0) fL MCH (27.0-31.0) pg MCHC (33.0-37.0) g/dL RDW (11.5-14.5) % Plt Count (130-400) K/uL MPV (7.2-11.7) fL Neut % (Auto) (50.0-75.0) % Lymph % (Auto) (20.0-40.0) % Kaufman % (Auto) (0.0-10.0) % Eos % (Auto) (0.0-4.0) % Baso % (Auto) (0.0-2.0) % Neut # (1.8-7.0) K/uL Lymph # (1.0-4.3) K/uL Kaufman # (0.0-0.8) K/uL Eos # (0.0-0.7) K/uL Baso # (0.0-0.2) K/uL Neutrophils % (Manual) (50-75) % Lymphocytes % (Manual) (20-40) % Monocytes % (Manual) (0-10) % Myelocytes % (0-0) % Nucleated RBC % (0-0) % Platelet Estimate (NORMAL) Polychromasia Macrocytosis (manual) Haptoglobin (43-212) mg/dL Puncture Site Rr pCO2 38 (35-45) mm/Hg pO2 164 H (80-100) mm/Hg HCO3 24.6 (21-28) mmol/L ABG pH 7.41 (7.35-7.45) ABG Total CO2 25.3 (22-28) mmol/L ABG O2 Saturation 99.4 H (95-98) % ABG Base Excess -0.4 (-2.0-3.0) mmol/L ABG Hemoglobin 9.8 L (11.7-17.4) g/dL ABG Carboxyhemoglobin 1.4 (0.5-1.5) % POC ABG HHb (Measured) 0.6 (0.0-5.0) % ABG Methemoglobin 1.1 (0.0-3.0) % Jose Maria Test Pos A-a O2 Difference 359.0 mm/Hg Respiratory Index 2.2 Hgb O2 Saturation 96.9 (95.0-98.0) % Vent Mode Bipap FiO2 80.0 % Inspiratory BiPAP 12 Expiratory BiPAP 6 Sodium 143 (132-148) mmol/L Potassium 4.4 (3.6-5.2) mmol/L Chloride 108 H (98-107) mmol/L Carbon Dioxide 21 L (22-30) mmol/L Anion Gap 18 (10-20) BUN 19 H (7-17) mg/dL Creatinine 0.6 L (0.7-1.2) MG/DL Est GFR ( Amer) > 60 Est GFR (Non-Af Amer) > 60 POC Glucose (mg/dL) (65-110) mg/dL Random Glucose 160 H (65-105) mg/dL Calcium 7.8 L (8.6-10.4) mg/dl Phosphorus 4.2 (2.5-4.5) mg/dL Magnesium 2.4 H (1.6-2.3) mg/dL Total Bilirubin 0.8 (0.2-1.3) mg/dL AST 55 H D (14-36) U/L ALT 75 H D (9-52) U/L Alkaline Phosphatase 59 (38-126) U/L Total Protein 5.2 L (6.3-8.3) g/dL Albumin 2.8 L (3.5-5.0) g/dL Globulin 2.4 (2.2-3.9) gm/dL Albumin/Globulin Ratio 1.2 (1.0-2.1) Vancomycin Trough 14.9 H (5.0-10.0) ug/mL 01/18/17 01/18/17 01/17/17 Range/Units 06:24 06:09 23:35 WBC 12.1 H (4.8-10.8) K/uL RBC 3.18 L (3.80-5.20) Mil/uL Hgb 10.1 L (11.0-16.0) g/dL Hct 30.2 L (34.0-47.0) % MCV 94.8 D (81.0-99.0) fL MCH 31.8 H (27.0-31.0) pg MCHC 33.6 (33.0-37.0) g/dL RDW 14.7 H (11.5-14.5) % Plt Count 274 (130-400) K/uL MPV 9.0 (7.2-11.7) fL Neut % (Auto) 95.7 H (50.0-75.0) % Lymph % (Auto) 2.3 L (20.0-40.0) % Kaufman % (Auto) 1.8 (0.0-10.0) % Eos % (Auto) 0.0 (0.0-4.0) % Baso % (Auto) 0.2 (0.0-2.0) % Neut # 11.6 H (1.8-7.0) K/uL Lymph # 0.3 L (1.0-4.3) K/uL Kaufman # 0.2 (0.0-0.8) K/uL Eos # 0.0 (0.0-0.7) K/uL Baso # 0.0 (0.0-0.2) K/uL Neutrophils % (Manual) 94 H (50-75) % Lymphocytes % (Manual) 4 L (20-40) % Monocytes % (Manual) 1 (0-10) % Myelocytes % 1 H (0-0) % Nucleated RBC % 1 H (0-0) % Platelet Estimate Normal (NORMAL) Polychromasia Slight Macrocytosis (manual) Slight Haptoglobin (43-212) mg/dL Puncture Site pCO2 (35-45) mm/Hg pO2 (80-100) mm/Hg HCO3 (21-28) mmol/L ABG pH (7.35-7.45) ABG Total CO2 (22-28) mmol/L ABG O2 Saturation (95-98) % ABG Base Excess (-2.0-3.0) mmol/L ABG Hemoglobin (11.7-17.4) g/dL ABG Carboxyhemoglobin (0.5-1.5) % POC ABG HHb (Measured) (0.0-5.0) % ABG Methemoglobin (0.0-3.0) % Jose Maria Test A-a O2 Difference mm/Hg Respiratory Index Hgb O2 Saturation (95.0-98.0) % Vent Mode FiO2 % Inspiratory BiPAP Expiratory BiPAP Sodium (132-148) mmol/L Potassium (3.6-5.2) mmol/L Chloride (98-107) mmol/L Carbon Dioxide (22-30) mmol/L Anion Gap (10-20) BUN (7-17) mg/dL Creatinine (0.7-1.2) MG/DL Est GFR ( Amer) Est GFR (Non-Af Amer) POC Glucose (mg/dL) 172 H 162 H (65-110) mg/dL Random Glucose (65-105) mg/dL Calcium (8.6-10.4) mg/dl Phosphorus (2.5-4.5) mg/dL Magnesium (1.6-2.3) mg/dL Total Bilirubin (0.2-1.3) mg/dL AST (14-36) U/L ALT (9-52) U/L Alkaline Phosphatase (38-126) U/L Total Protein (6.3-8.3) g/dL Albumin (3.5-5.0) g/dL Globulin (2.2-3.9) gm/dL Albumin/Globulin Ratio (1.0-2.1) Vancomycin Trough (5.0-10.0) ug/mL 01/17/17 01/17/17 01/17/17 Range/Units 18:11 12:05 12:00 WBC 13.4 H (4.8-10.8) K/uL RBC 2.97 L (3.80-5.20) Mil/uL Hgb 9.3 L D (11.0-16.0) g/dL Hct 27.5 L (34.0-47.0) % MCV 92.4 (81.0-99.0) fL MCH 31.2 H (27.0-31.0) pg MCHC 33.7 (33.0-37.0) g/dL RDW 14.2 (11.5-14.5) % Plt Count 300 (130-400) K/uL MPV 8.4 (7.2-11.7) fL Neut % (Auto) (50.0-75.0) % Lymph % (Auto) (20.0-40.0) % Kaufman % (Auto) (0.0-10.0) % Eos % (Auto) (0.0-4.0) % Baso % (Auto) (0.0-2.0) % Neut # (1.8-7.0) K/uL Lymph # (1.0-4.3) K/uL Kaufman # (0.0-0.8) K/uL Eos # (0.0-0.7) K/uL Baso # (0.0-0.2) K/uL Neutrophils % (Manual) (50-75) % Lymphocytes % (Manual) (20-40) % Monocytes % (Manual) (0-10) % Myelocytes % (0-0) % Nucleated RBC % (0-0) % Platelet Estimate (NORMAL) Polychromasia Macrocytosis (manual) Haptoglobin (43-212) mg/dL Puncture Site pCO2 (35-45) mm/Hg pO2 (80-100) mm/Hg HCO3 (21-28) mmol/L ABG pH (7.35-7.45) ABG Total CO2 (22-28) mmol/L ABG O2 Saturation (95-98) % ABG Base Excess (-2.0-3.0) mmol/L ABG Hemoglobin (11.7-17.4) g/dL ABG Carboxyhemoglobin (0.5-1.5) % POC ABG HHb (Measured) (0.0-5.0) % ABG Methemoglobin (0.0-3.0) % Jose Maria Test A-a O2 Difference mm/Hg Respiratory Index Hgb O2 Saturation (95.0-98.0) % Vent Mode FiO2 % Inspiratory BiPAP Expiratory BiPAP Sodium (132-148) mmol/L Potassium (3.6-5.2) mmol/L Chloride (98-107) mmol/L Carbon Dioxide (22-30) mmol/L Anion Gap (10-20) BUN (7-17) mg/dL Creatinine (0.7-1.2) MG/DL Est GFR ( Amer) Est GFR (Non-Af Amer) POC Glucose (mg/dL) 216 H 120 H (65-110) mg/dL Random Glucose (65-105) mg/dL Calcium (8.6-10.4) mg/dl Phosphorus (2.5-4.5) mg/dL Magnesium (1.6-2.3) mg/dL Total Bilirubin (0.2-1.3) mg/dL AST (14-36) U/L ALT (9-52) U/L Alkaline Phosphatase (38-126) U/L Total Protein (6.3-8.3) g/dL Albumin (3.5-5.0) g/dL Globulin (2.2-3.9) gm/dL Albumin/Globulin Ratio (1.0-2.1) Vancomycin Trough (5.0-10.0) ug/mL 01/16/17 Range/Units 18:13 WBC (4.8-10.8) K/uL RBC (3.80-5.20) Mil/uL Hgb (11.0-16.0) g/dL Hct (34.0-47.0) % MCV (81.0-99.0) fL MCH (27.0-31.0) pg MCHC (33.0-37.0) g/dL RDW (11.5-14.5) % Plt Count (130-400) K/uL MPV (7.2-11.7) fL Neut % (Auto) (50.0-75.0) % Lymph % (Auto) (20.0-40.0) % Kaufman % (Auto) (0.0-10.0) % Eos % (Auto) (0.0-4.0) % Baso % (Auto) (0.0-2.0) % Neut # (1.8-7.0) K/uL Lymph # (1.0-4.3) K/uL Kaufman # (0.0-0.8) K/uL Eos # (0.0-0.7) K/uL Baso # (0.0-0.2) K/uL Neutrophils % (Manual) (50-75) % Lymphocytes % (Manual) (20-40) % Monocytes % (Manual) (0-10) % Myelocytes % (0-0) % Nucleated RBC % (0-0) % Platelet Estimate (NORMAL) Polychromasia Macrocytosis (manual) Haptoglobin 354 H (43-212) mg/dL Puncture Site pCO2 (35-45) mm/Hg pO2 (80-100) mm/Hg HCO3 (21-28) mmol/L ABG pH (7.35-7.45) ABG Total CO2 (22-28) mmol/L ABG O2 Saturation (95-98) % ABG Base Excess (-2.0-3.0) mmol/L ABG Hemoglobin (11.7-17.4) g/dL ABG Carboxyhemoglobin (0.5-1.5) % POC ABG HHb (Measured) (0.0-5.0) % ABG Methemoglobin (0.0-3.0) % Jose Maria Test A-a O2 Difference mm/Hg Respiratory Index Hgb O2 Saturation (95.0-98.0) % Vent Mode FiO2 % Inspiratory BiPAP Expiratory BiPAP Sodium (132-148) mmol/L Potassium (3.6-5.2) mmol/L Chloride (98-107) mmol/L Carbon Dioxide (22-30) mmol/L Anion Gap (10-20) BUN (7-17) mg/dL Creatinine (0.7-1.2) MG/DL Est GFR ( Amer) Est GFR (Non-Af Amer) POC Glucose (mg/dL) (65-110) mg/dL Random Glucose (65-105) mg/dL Calcium (8.6-10.4) mg/dl Phosphorus (2.5-4.5) mg/dL Magnesium (1.6-2.3) mg/dL Total Bilirubin (0.2-1.3) mg/dL AST (14-36) U/L ALT (9-52) U/L Alkaline Phosphatase (38-126) U/L Total Protein (6.3-8.3) g/dL Albumin (3.5-5.0) g/dL Globulin (2.2-3.9) gm/dL Albumin/Globulin Ratio (1.0-2.1) Vancomycin Trough (5.0-10.0) ug/mL Laboratory Results - last 24 hr 01/16/17 01/17/17 01/17/17 18:13 12:00 12:05 WBC 13.4 H RBC 2.97 L Hgb 9.3 L D Hct 27.5 L MCV 92.4 MCH 31.2 H MCHC 33.7 RDW 14.2 Plt Count 300 MPV 8.4 Neut % (Auto) Lymph % (Auto) Kaufman % (Auto) Eos % (Auto) Baso % (Auto) Neut # Lymph # Kaufman # Eos # Baso # Neutrophils % (Manual) Lymphocytes % (Manual) Monocytes % (Manual) Myelocytes % Nucleated RBC % Platelet Estimate Polychromasia Macrocytosis (manual) Haptoglobin 354 H Puncture Site pCO2 pO2 HCO3 ABG pH ABG Total CO2 ABG O2 Saturation ABG Base Excess ABG Hemoglobin ABG Carboxyhemoglobin POC ABG HHb (Measured) ABG Methemoglobin Jose Maria Test A-a O2 Difference Respiratory Index Hgb O2 Saturation Vent Mode FiO2 Inspiratory BiPAP Expiratory BiPAP Sodium Potassium Chloride Carbon Dioxide Anion Gap BUN Creatinine Est GFR ( Amer) Est GFR (Non-Af Amer) POC Glucose (mg/dL) 120 H Random Glucose Calcium Phosphorus Magnesium Total Bilirubin AST ALT Alkaline Phosphatase Total Protein Albumin Globulin Albumin/Globulin Ratio Vancomycin Trough 01/17/17 01/17/17 01/18/17 18:11 23:35 06:09 WBC RBC Hgb Hct MCV MCH MCHC RDW Plt Count MPV Neut % (Auto) Lymph % (Auto) Kaufman % (Auto) Eos % (Auto) Baso % (Auto) Neut # Lymph # Kaufman # Eos # Baso # Neutrophils % (Manual) Lymphocytes % (Manual) Monocytes % (Manual) Myelocytes % Nucleated RBC % Platelet Estimate Polychromasia Macrocytosis (manual) Haptoglobin Puncture Site pCO2 pO2 HCO3 ABG pH ABG Total CO2 ABG O2 Saturation ABG Base Excess ABG Hemoglobin ABG Carboxyhemoglobin POC ABG HHb (Measured) ABG Methemoglobin Jose Maria Test A-a O2 Difference Respiratory Index Hgb O2 Saturation Vent Mode FiO2 Inspiratory BiPAP Expiratory BiPAP Sodium Potassium Chloride Carbon Dioxide Anion Gap BUN Creatinine Est GFR ( Amer) Est GFR (Non-Af Amer) POC Glucose (mg/dL) 216 H 162 H 172 H Random Glucose Calcium Phosphorus Magnesium Total Bilirubin AST ALT Alkaline Phosphatase Total Protein Albumin Globulin Albumin/Globulin Ratio Vancomycin Trough 01/18/17 01/18/17 01/18/17 06:24 06:24 06:40 WBC 12.1 H RBC 3.18 L Hgb 10.1 L Hct 30.2 L MCV 94.8 D MCH 31.8 H MCHC 33.6 RDW 14.7 H Plt Count 274 MPV 9.0 Neut % (Auto) 95.7 H Lymph % (Auto) 2.3 L Kaufman % (Auto) 1.8 Eos % (Auto) 0.0 Baso % (Auto) 0.2 Neut # 11.6 H Lymph # 0.3 L Kaufman # 0.2 Eos # 0.0 Baso # 0.0 Neutrophils % (Manual) 94 H Lymphocytes % (Manual) 4 L Monocytes % (Manual) 1 Myelocytes % 1 H Nucleated RBC % 1 H Platelet Estimate Normal Polychromasia Slight Macrocytosis (manual) Slight Haptoglobin Puncture Site Rr pCO2 38 pO2 164 H HCO3 24.6 ABG pH 7.41 ABG Total CO2 25.3 ABG O2 Saturation 99.4 H ABG Base Excess -0.4 ABG Hemoglobin 9.8 L ABG Carboxyhemoglobin 1.4 POC ABG HHb (Measured) 0.6 ABG Methemoglobin 1.1 Jose Maria Test Pos A-a O2 Difference 359.0 Respiratory Index 2.2 Hgb O2 Saturation 96.9 Vent Mode Bipap FiO2 80.0 Inspiratory BiPAP 12 Expiratory BiPAP 6 Sodium 143 Potassium 4.4 Chloride 108 H Carbon Dioxide 21 L Anion Gap 18 BUN 19 H Creatinine 0.6 L Est GFR ( Amer) > 60 Est GFR (Non-Af Amer) > 60 POC Glucose (mg/dL) Random Glucose 160 H Calcium 7.8 L Phosphorus 4.2 Magnesium 2.4 H Total Bilirubin 0.8 AST 55 H D ALT 75 H D Alkaline Phosphatase 59 Total Protein 5.2 L Albumin 2.8 L Globulin 2.4 Albumin/Globulin Ratio 1.2 Vancomycin Trough 01/18/17 06:42 WBC RBC Hgb Hct MCV MCH MCHC RDW Plt Count MPV Neut % (Auto) Lymph % (Auto) Kaufman % (Auto) Eos % (Auto) Baso % (Auto) Neut # Lymph # Kaufman # Eos # Baso # Neutrophils % (Manual) Lymphocytes % (Manual) Monocytes % (Manual) Myelocytes % Nucleated RBC % Platelet Estimate Polychromasia Macrocytosis (manual) Haptoglobin Puncture Site pCO2 pO2 HCO3 ABG pH ABG Total CO2 ABG O2 Saturation ABG Base Excess ABG Hemoglobin ABG Carboxyhemoglobin POC ABG HHb (Measured) ABG Methemoglobin Jose Maria Test A-a O2 Difference Respiratory Index Hgb O2 Saturation Vent Mode FiO2 Inspiratory BiPAP Expiratory BiPAP Sodium Potassium Chloride Carbon Dioxide Anion Gap BUN Creatinine Est GFR ( Amer) Est GFR (Non-Af Amer) POC Glucose (mg/dL) Random Glucose Calcium Phosphorus Magnesium Total Bilirubin AST ALT Alkaline Phosphatase Total Protein Albumin Globulin Albumin/Globulin Ratio Vancomycin Trough 14.9 H Fingerstick Blood Sugar Results: 172 Review of Systems - Constitutional Constitutional: absent: Fever, Chills, Sweats, Weakness - EENT Eyes: absent: Change in Vision Ears: absent: Dizziness - Cardiovascular Cardiovascular: absent: Chest Pain, Dyspnea, Lightheadedness, Palpitations - Respiratory Respiratory: absent: Cough, Dyspnea - Gastrointestinal Gastrointestinal: absent: Abdominal Pain, Cramping, Nausea - Integumentary Integumentary: Photosensitivity - Neurological Neurological: absent: Dizziness - Endocrine Endocrine: absent: Palpitations Critical Care Progress Note - Nutrition Nutrition: Nutrition Category Date Time Status NPO Diet [DIET] Diets 01/17/17 Breakfast Active Assessment/Plan - Assessment and Plan (Free Text) Assessment: Patient is a 76 y/o female with past medical history Anemia, Anxiety, Arthritis , Cardiac Arrhythmia, COPD, Depression, HTN, Hyperlipidemia, Multiple Sclerosis , Osteoporosis, Peripheral Edema, Pulmonary Embolism, Chronic Kidney Disease, Rheumatoid Arthritis, presents with dyspnea and sepsis Today: Patient was extubated yesterday and tolerated pressure support overnight. Patient was switched from pressure support to 4L nasal cannula at 11 :30am. Patient has been maintaining an oxygen saturation of 97-98% with 4L nasal cannula. Plan: Pulm: Hypercapnic respiratory failure * Intubated on 01/08/17; ET tube was advanced into the airway 1-2cm (01/15/17), Extubated (01/17/17), and placed on pressure support * Pressure support tolerated well overnight and now maintained on 4L nasal cannula * Duonebs 2.5mg RQ4 * Solu-Medrol 40mg IVP Q12H Chest X-ray (01/14/17): Lines and tubes in stable position. Moderate right pleural effusion. Confluent airspace consolidation within the right mid to lower lung zone. Prominent diffuse increased interstitial lung markings. Biapical pleural thickening with upper lobe granulomatous changes. CT chest (01/16/17): No evidence of PE (01/15/17) Cipap trial yesterday: Oxygen saturation at 88, therefore patient was not extubated. (01/16/17) Cipap trial was started today at 10:30am and patient has been tolerable with an oxygen saturation of 95%. We continue to monitor on CiPap (: Cipap trial continued today, tolerated and subsequently, patient was extubated as 16:52, and was placed on a venturi mask. Cardio: Diastolic heart failure * On admission, BNP: 18,200 Echo(01/08/17): Normal LV systolic HTN: Lisinopril 5mg PO daily GI: * Elevated AST & ALT * Continue to monitor Renal: * BUN elevated, Normal Cr (BUN trending down) * Continue to monitor urine output : Gilmore d/c today (01/18/17) Heme: GI Consult, Dr. Farris H/H: stable s/p transfusion of 1 unit of PRBC (01/17/17) Endoscopy (01/17/17): A single 3mm sessile polyp in the gastric fundus and patchy minimal inflammation with erythema in the gastric antrum. No gross lesion in the 2nd part of the duodenum Continue to monitor ID: Dr. Lind on board---> Help appreciated PICC line inserted and IJ removed (01/17/17) * Septic on admission: Lactate of 1.1--->1.9 with bands of 40 (Resolved) * Blood Cultures: Coagulase (-) staphylococcus (01/07/17), f/u repeat blood culture (01/18/17) * Urine culture: negative * Sputum gram stain : Yeast species Current medications: * Zosyn 3.375gm IVPB Q8H * Vanco discontinued on the 01/09, restarted on Vanco 01/15/17 with a stop date of 01/20/17 * Linezolid 600mg IV Q12H (01/08/17-01/11/17) * Fluconazole 200Mg IVBP daily Neuro: * Alert, responds to verbal stimuli * Negative swallow evaluation (01/18/17) History of Multiple sclerosis: consulted for management ---> Help appreciated * As per neurology, recommendation for brain, cervical and thoracic MRI w/wo contrast Prophylaxis: * GI: Protonix 40mg IV daily, Sucralfate 30ml Soln Q6H * DVT: SCDs, anticoagulation contraindicated due to unstable H/H * PT/OT <Jonny Fiugeroa - Last Filed: 01/18/17 16:30> CCU Objective - Vital Signs / Intake & Output Vital Signs (Last 4 hours): Vital Signs Pulse Resp BP Pulse Ox 01/18/17 15:52 73 13 148/76 98 01/18/17 15:00 66 20 99 01/18/17 14:52 75 20 139/77 99 01/18/17 14:00 78 20 100 01/18/17 13:52 77 16 134/70 100 01/18/17 13:00 87 15 97 01/18/17 12:52 87 24 141/83 97 Intake and Output (Last 8hrs): Intake & Output 01/18/17 01/18/17 01/18/17 06:59 14:59 22:59 Intake Total 50 390 0 Output Total 340 225 Balance -290 165 0 Weight 134 lb 11.2 oz Intake: Intake, IV Amount 50 350 Right Medial Port 50 Internal Jugular Right Wrist 350 Oral 40 0 Output: Urine 340 225 Urethral (Gilmore) 340 225 - Medications Active Medications: Active Medications Generic Name Dose Route Start Last Admin Trade Name Jose Angelq PRN Reason Stop Dose Admin Albuterol Sulfate 2.5 mg 01/13/17 16:00 01/18/17 16:07 Albuterol 0.083% Inhal Jeri (2.5 Mg/3 Ml) Ud INH 2.5 mg RQ4 RAUL Administration Piperacillin Sod/Tazobactam Sod 3.375 gm in 50 mls @ 100 mls/hr 01/08/17 10: 30 01/18/17 10:50 Zosyn 3.375 Gm Iv Premix IVPB 100 mls/hr Q8H RAUL Administration Fluconazole 100 mls @ 100 mls/hr 01/13/17 10:00 01/18/17 09:47 Diflucan Iv 200 Mg/100 Ml Ns IVPB 100 mls/hr DAILY RAUL Administration Vancomycin/Sodium Chloride 1 gm in 200 mls @ 133.333 mls/hr 01/15/17 12:00 11:45 Vancocin IVPB 01/20/17 12:01 133.333 mls/hr Q24H RAUL Administration Insulin Aspart 0 unit 01/16/17 18:00 01/18/17 12:28 Novolog SC 2 unit Q6H RAUL Administration Protocol Lisinopril 5 mg 01/09/17 10:00 01/18/17 12:25 Zestril PO 5 mg DAILY RAUL Administration Methylprednisolone 20 mg 01/17/17 10:00 01/18/17 09:06 Solu-Medrol IVP 20 mg Q12 RAUL Administration Pantoprazole Sodium 40 mg 01/16/17 10:45 01/18/17 09:06 Protonix Inj IVP 40 mg Q12 RAUL Administration Sucralfate 1 gm 01/16/17 10:45 01/18/17 12:25 Carafate Oral Susp PO 1 gm Q6 RAUL Administration - Patient Studies Lab Studies: Microbiology Studies 01/13/17 15:30 Blood Culture - Preliminary Blood-Venous NO GROWTH AFTER 4 DAYS 01/13/17 16:00 Blood Culture - Preliminary Blood-Venous NO GROWTH AFTER 4 DAYS Lab Studies 01/18/17 01/18/17 01/18/17 Range/Units 12:22 06:42 06:40 WBC (4.8-10.8) K/uL RBC (3.80-5.20) Mil/uL Hgb (11.0-16.0) g/dL Hct (34.0-47.0) % MCV (81.0-99.0) fL MCH (27.0-31.0) pg MCHC (33.0-37.0) g/dL RDW (11.5-14.5) % Plt Count (130-400) K/uL MPV (7.2-11.7) fL Neut % (Auto) (50.0-75.0) % Lymph % (Auto) (20.0-40.0) % Kaufman % (Auto) (0.0-10.0) % Eos % (Auto) (0.0-4.0) % Baso % (Auto) (0.0-2.0) % Neut # (1.8-7.0) K/uL Lymph # (1.0-4.3) K/uL Kaufman # (0.0-0.8) K/uL Eos # (0.0-0.7) K/uL Baso # (0.0-0.2) K/uL Neutrophils % (Manual) (50-75) % Lymphocytes % (Manual) (20-40) % Monocytes % (Manual) (0-10) % Myelocytes % (0-0) % Nucleated RBC % (0-0) % Platelet Estimate (NORMAL) Polychromasia Macrocytosis (manual) Haptoglobin (43-212) mg/dL Puncture Site Rr pCO2 38 (35-45) mm/Hg pO2 164 H (80-100) mm/Hg HCO3 24.6 (21-28) mmol/L ABG pH 7.41 (7.35-7.45) ABG Total CO2 25.3 (22-28) mmol/L ABG O2 Saturation 99.4 H (95-98) % ABG Base Excess -0.4 (-2.0-3.0) mmol/L ABG Hemoglobin 9.8 L (11.7-17.4) g/dL ABG Carboxyhemoglobin 1.4 (0.5-1.5) % POC ABG HHb (Measured) 0.6 (0.0-5.0) % ABG Methemoglobin 1.1 (0.0-3.0) % Jose Maria Test Pos A-a O2 Difference 359.0 mm/Hg Respiratory Index 2.2 Hgb O2 Saturation 96.9 (95.0-98.0) % Vent Mode Bipap FiO2 80.0 % Inspiratory BiPAP 12 Expiratory BiPAP 6 Sodium (132-148) mmol/L Potassium (3.6-5.2) mmol/L Chloride (98-107) mmol/L Carbon Dioxide (22-30) mmol/L Anion Gap (10-20) BUN (7-17) mg/dL Creatinine (0.7-1.2) MG/DL Est GFR ( Amer) Est GFR (Non-Af Amer) POC Glucose (mg/dL) 226 H (65-110) mg/dL Random Glucose (65-105) mg/dL Calcium (8.6-10.4) mg/dl Phosphorus (2.5-4.5) mg/dL Magnesium (1.6-2.3) mg/dL Total Bilirubin (0.2-1.3) mg/dL AST (14-36) U/L ALT (9-52) U/L Alkaline Phosphatase (38-126) U/L Total Protein (6.3-8.3) g/dL Albumin (3.5-5.0) g/dL Globulin (2.2-3.9) gm/dL Albumin/Globulin Ratio (1.0-2.1) Vancomycin Trough 14.9 H (5.0-10.0) ug/mL 01/18/17 01/18/17 01/18/17 Range/Units 06:24 06:24 06:09 WBC 12.1 H (4.8-10.8) K/uL RBC 3.18 L (3.80-5.20) Mil/uL Hgb 10.1 L (11.0-16.0) g/dL Hct 30.2 L (34.0-47.0) % MCV 94.8 D (81.0-99.0) fL MCH 31.8 H (27.0-31.0) pg MCHC 33.6 (33.0-37.0) g/dL RDW 14.7 H (11.5-14.5) % Plt Count 274 (130-400) K/uL MPV 9.0 (7.2-11.7) fL Neut % (Auto) 95.7 H (50.0-75.0) % Lymph % (Auto) 2.3 L (20.0-40.0) % Kaufman % (Auto) 1.8 (0.0-10.0) % Eos % (Auto) 0.0 (0.0-4.0) % Baso % (Auto) 0.2 (0.0-2.0) % Neut # 11.6 H (1.8-7.0) K/uL Lymph # 0.3 L (1.0-4.3) K/uL Kaufman # 0.2 (0.0-0.8) K/uL Eos # 0.0 (0.0-0.7) K/uL Baso # 0.0 (0.0-0.2) K/uL Neutrophils % (Manual) 94 H (50-75) % Lymphocytes % (Manual) 4 L (20-40) % Monocytes % (Manual) 1 (0-10) % Myelocytes % 1 H (0-0) % Nucleated RBC % 1 H (0-0) % Platelet Estimate Normal (NORMAL) Polychromasia Slight Macrocytosis (manual) Slight Haptoglobin (43-212) mg/dL Puncture Site pCO2 (35-45) mm/Hg pO2 (80-100) mm/Hg HCO3 (21-28) mmol/L ABG pH (7.35-7.45) ABG Total CO2 (22-28) mmol/L ABG O2 Saturation (95-98) % ABG Base Excess (-2.0-3.0) mmol/L ABG Hemoglobin (11.7-17.4) g/dL ABG Carboxyhemoglobin (0.5-1.5) % POC ABG HHb (Measured) (0.0-5.0) % ABG Methemoglobin (0.0-3.0) % Jose Maria Test A-a O2 Difference mm/Hg Respiratory Index Hgb O2 Saturation (95.0-98.0) % Vent Mode FiO2 % Inspiratory BiPAP Expiratory BiPAP Sodium 143 (132-148) mmol/L Potassium 4.4 (3.6-5.2) mmol/L Chloride 108 H (98-107) mmol/L Carbon Dioxide 21 L (22-30) mmol/L Anion Gap 18 (10-20) BUN 19 H (7-17) mg/dL Creatinine 0.6 L (0.7-1.2) MG/DL Est GFR ( Amer) > 60 Est GFR (Non-Af Amer) > 60 POC Glucose (mg/dL) 172 H (65-110) mg/dL Random Glucose 160 H (65-105) mg/dL Calcium 7.8 L (8.6-10.4) mg/dl Phosphorus 4.2 (2.5-4.5) mg/dL Magnesium 2.4 H (1.6-2.3) mg/dL Total Bilirubin 0.8 (0.2-1.3) mg/dL AST 55 H D (14-36) U/L ALT 75 H D (9-52) U/L Alkaline Phosphatase 59 (38-126) U/L Total Protein 5.2 L (6.3-8.3) g/dL Albumin 2.8 L (3.5-5.0) g/dL Globulin 2.4 (2.2-3.9) gm/dL Albumin/Globulin Ratio 1.2 (1.0-2.1) Vancomycin Trough (5.0-10.0) ug/mL 01/17/17 01/17/17 01/16/17 Range/Units 23:35 18:11 18:13 WBC (4.8-10.8) K/uL RBC (3.80-5.20) Mil/uL Hgb (11.0-16.0) g/dL Hct (34.0-47.0) % MCV (81.0-99.0) fL MCH (27.0-31.0) pg MCHC (33.0-37.0) g/dL RDW (11.5-14.5) % Plt Count (130-400) K/uL MPV (7.2-11.7) fL Neut % (Auto) (50.0-75.0) % Lymph % (Auto) (20.0-40.0) % Kaufman % (Auto) (0.0-10.0) % Eos % (Auto) (0.0-4.0) % Baso % (Auto) (0.0-2.0) % Neut # (1.8-7.0) K/uL Lymph # (1.0-4.3) K/uL Kaufman # (0.0-0.8) K/uL Eos # (0.0-0.7) K/uL Baso # (0.0-0.2) K/uL Neutrophils % (Manual) (50-75) % Lymphocytes % (Manual) (20-40) % Monocytes % (Manual) (0-10) % Myelocytes % (0-0) % Nucleated RBC % (0-0) % Platelet Estimate (NORMAL) Polychromasia Macrocytosis (manual) Haptoglobin 354 H (43-212) mg/dL Puncture Site pCO2 (35-45) mm/Hg pO2 (80-100) mm/Hg HCO3 (21-28) mmol/L ABG pH (7.35-7.45) ABG Total CO2 (22-28) mmol/L ABG O2 Saturation (95-98) % ABG Base Excess (-2.0-3.0) mmol/L ABG Hemoglobin (11.7-17.4) g/dL ABG Carboxyhemoglobin (0.5-1.5) % POC ABG HHb (Measured) (0.0-5.0) % ABG Methemoglobin (0.0-3.0) % Jose Maria Test A-a O2 Difference mm/Hg Respiratory Index Hgb O2 Saturation (95.0-98.0) % Vent Mode FiO2 % Inspiratory BiPAP Expiratory BiPAP Sodium (132-148) mmol/L Potassium (3.6-5.2) mmol/L Chloride (98-107) mmol/L Carbon Dioxide (22-30) mmol/L Anion Gap (10-20) BUN (7-17) mg/dL Creatinine (0.7-1.2) MG/DL Est GFR ( Amer) Est GFR (Non-Af Amer) POC Glucose (mg/dL) 162 H 216 H (65-110) mg/dL Random Glucose (65-105) mg/dL Calcium (8.6-10.4) mg/dl Phosphorus (2.5-4.5) mg/dL Magnesium (1.6-2.3) mg/dL Total Bilirubin (0.2-1.3) mg/dL AST (14-36) U/L ALT (9-52) U/L Alkaline Phosphatase (38-126) U/L Total Protein (6.3-8.3) g/dL Albumin (3.5-5.0) g/dL Globulin (2.2-3.9) gm/dL Albumin/Globulin Ratio (1.0-2.1) Vancomycin Trough (5.0-10.0) ug/mL Laboratory Results - last 24 hr 01/16/17 01/17/17 01/17/17 18:13 18:11 23:35 WBC RBC Hgb Hct MCV MCH MCHC RDW Plt Count MPV Neut % (Auto) Lymph % (Auto) Kaufman % (Auto) Eos % (Auto) Baso % (Auto) Neut # Lymph # Kaufman # Eos # Baso # Neutrophils % (Manual) Lymphocytes % (Manual) Monocytes % (Manual) Myelocytes % Nucleated RBC % Platelet Estimate Polychromasia Macrocytosis (manual) Haptoglobin 354 H Puncture Site pCO2 pO2 HCO3 ABG pH ABG Total CO2 ABG O2 Saturation ABG Base Excess ABG Hemoglobin ABG Carboxyhemoglobin POC ABG HHb (Measured) ABG Methemoglobin Jose Maria Test A-a O2 Difference Respiratory Index Hgb O2 Saturation Vent Mode FiO2 Inspiratory BiPAP Expiratory BiPAP Sodium Potassium Chloride Carbon Dioxide Anion Gap BUN Creatinine Est GFR ( Amer) Est GFR (Non-Af Amer) POC Glucose (mg/dL) 216 H 162 H Random Glucose Calcium Phosphorus Magnesium Total Bilirubin AST ALT Alkaline Phosphatase Total Protein Albumin Globulin Albumin/Globulin Ratio Vancomycin Trough 01/18/17 01/18/17 01/18/17 06:09 06:24 06:24 WBC 12.1 H RBC 3.18 L Hgb 10.1 L Hct 30.2 L MCV 94.8 D MCH 31.8 H MCHC 33.6 RDW 14.7 H Plt Count 274 MPV 9.0 Neut % (Auto) 95.7 H Lymph % (Auto) 2.3 L Kaufman % (Auto) 1.8 Eos % (Auto) 0.0 Baso % (Auto) 0.2 Neut # 11.6 H Lymph # 0.3 L Kaufman # 0.2 Eos # 0.0 Baso # 0.0 Neutrophils % (Manual) 94 H Lymphocytes % (Manual) 4 L Monocytes % (Manual) 1 Myelocytes % 1 H Nucleated RBC % 1 H Platelet Estimate Normal Polychromasia Slight Macrocytosis (manual) Slight Haptoglobin Puncture Site pCO2 pO2 HCO3 ABG pH ABG Total CO2 ABG O2 Saturation ABG Base Excess ABG Hemoglobin ABG Carboxyhemoglobin POC ABG HHb (Measured) ABG Methemoglobin Jose Maria Test A-a O2 Difference Respiratory Index Hgb O2 Saturation Vent Mode FiO2 Inspiratory BiPAP Expiratory BiPAP Sodium 143 Potassium 4.4 Chloride 108 H Carbon Dioxide 21 L Anion Gap 18 BUN 19 H Creatinine 0.6 L Est GFR ( Amer) > 60 Est GFR (Non-Af Amer) > 60 POC Glucose (mg/dL) 172 H Random Glucose 160 H Calcium 7.8 L Phosphorus 4.2 Magnesium 2.4 H Total Bilirubin 0.8 AST 55 H D ALT 75 H D Alkaline Phosphatase 59 Total Protein 5.2 L Albumin 2.8 L Globulin 2.4 Albumin/Globulin Ratio 1.2 Vancomycin Trough 01/18/17 01/18/17 01/18/17 06:40 06:42 12:22 WBC RBC Hgb Hct MCV MCH MCHC RDW Plt Count MPV Neut % (Auto) Lymph % (Auto) Kaufman % (Auto) Eos % (Auto) Baso % (Auto) Neut # Lymph # Kaufman # Eos # Baso # Neutrophils % (Manual) Lymphocytes % (Manual) Monocytes % (Manual) Myelocytes % Nucleated RBC % Platelet Estimate Polychromasia Macrocytosis (manual) Haptoglobin Puncture Site Rr pCO2 38 pO2 164 H HCO3 24.6 ABG pH 7.41 ABG Total CO2 25.3 ABG O2 Saturation 99.4 H ABG Base Excess -0.4 ABG Hemoglobin 9.8 L ABG Carboxyhemoglobin 1.4 POC ABG HHb (Measured) 0.6 ABG Methemoglobin 1.1 Jose Maria Test Pos A-a O2 Difference 359.0 Respiratory Index 2.2 Hgb O2 Saturation 96.9 Vent Mode Bipap FiO2 80.0 Inspiratory BiPAP 12 Expiratory BiPAP 6 Sodium Potassium Chloride Carbon Dioxide Anion Gap BUN Creatinine Est GFR ( Amer) Est GFR (Non-Af Amer) POC Glucose (mg/dL) 226 H Random Glucose Calcium Phosphorus Magnesium Total Bilirubin AST ALT Alkaline Phosphatase Total Protein Albumin Globulin Albumin/Globulin Ratio Vancomycin Trough 14.9 H Critical Care Progress Note - Nutrition Nutrition: Nutrition Category Date Time Status Dysphagia/Modified Consistency Diet [DIET] Diets 01/18/17 Lunch Active Attending/Attestation - Attestation I have personally seen and examined this patient.: Yes I have fully participated in the care of the patient.: Yes I have reviewed all pertinent clinical information: Yes Notes (Text): 01/18/17 16:26 I have seen and examined the patient. Medical records, lab studies, and imaging were reviewed by me and a management plan was formulated on multidisciplinary rounds with resident Dr. Kruse. I agree with their above documented assessment and plan. Patient extubated, requiring persistent oxygen. Obtaining MRI of cervical/ thoracic spine to r/o possible MS spinal lesion. May require steroid treatment or manager terminal oxygen. Critical Care Time 35 minutes. Multi-disciplinary rounds were performed with house staff, nursing, speech therapy, respiratory therapy, pharmacy and nutrition with integrated input from the primary team/attending and other consulting services. The documented time is cumulative and includes review of patient data/exams/labs/chart review and examination of the patient on rounds and throughout the day; time is exclusive of any procedures or teaching time.
[2017-01-18] MEDS: Fluconazole IV 200mg/100 ml NS 100 ML IVPB SCH (09:47)
--- NOTE | 2017-01-18 11:15 | RAD ---
HISTORY: PICC insertion COMPARISON: Comparison made with prior study 01/18/2017 Evan prior. FINDINGS: Interval placement right-sided PICC line with tip in the SVC LUNGS: . Right hemidiaphragm with presumed compressive type atelectasis right lung base. Questionable small right effusion. Minor left basilar atelectasis. PLEURA: No evidence of pneumothorax CARDIOVASCULAR: Heart size is mildly enlarged OSSEOUS STRUCTURES: No significant abnormalities. VISUALIZED UPPER ABDOMEN: In situ IVC filter OTHER FINDINGS: None. IMPRESSION: Right-sided PICC line as described Right hemidiaphragm with presumed compressive type atelectasis right lung base. Questionable small right effusion. Minor left basilar atelectasis.
[2017-01-18] MEDS: Vancomycin 1 gm/NS 200 ml 1 GM/200 ML BAG IVPB SCH (11:45)
--- NOTE | 2017-01-18 12:53 | CP.PCM.PN ---
Subjective - Date & Time of Evaluation Date of Evaluation: 01/18/17 Time of Evaluation: 08:00 - Subjective Subjective: events noted central lines removed iv rx to cont extubated awake alert nad Objective - Vital Signs/Intake and Output Vital Signs (last 24 hours): Temp Pulse Resp BP Pulse Ox 97.4 F L 80 25 H 147/87 100 01/18/17 08:00 01/18/17 11:22 01/18/17 11:00 01/18/17 10:53 01/18/17 11:00 Intake and Output: 01/18/17 01/18/17 06:59 18:59 Intake Total 50 150 Output Total 500 155 Balance -450 -5 - Medications Medications: Current Medications Albuterol Sulfate (Albuterol 0.083% Inhal Jeri (2.5 Mg/3 Ml) Ud) 2.5 mg INH RQ4 [facility] Last Admin: 01/18/17 11:21 Dose: 2.5 mg Piperacillin Sod/Tazobactam Sod (Zosyn 3.375 Gm Iv Premix) 3.375 gm in 50 mls @ 100 mls/hr IVPB Q8H [facility] Last Admin: 01/18/17 10:50 Dose: 100 mls/hr Fluconazole (Diflucan Iv 200 Mg/100 Ml Ns) 100 mls @ 100 mls/hr IVPB DAILY [facility] Last Admin: 01/18/17 09:47 Dose: 100 mls/hr Vancomycin/Sodium Chloride (Vancocin) 1 gm in 200 mls @ 133.333 mls/hr IVPB Q24H [facility] Stop: 01/20/17 12:01 Last Admin: 01/18/17 11:45 Dose: 133.333 mls/hr Insulin Aspart (Novolog) 0 unit SC Q6H [facility] PRN Reason: Protocol Last Admin: 01/18/17 12:28 Dose: 2 unit Lisinopril (Zestril) 5 mg PO DAILY [facility] Last Admin: 01/18/17 12:25 Dose: 5 mg Methylprednisolone (Solu-Medrol) 20 mg IVP Q12 [facility] Last Admin: 01/18/17 09:06 Dose: 20 mg Pantoprazole Sodium (Protonix Inj) 40 mg IVP Q12 [facility] Last Admin: 01/18/17 09:06 Dose: 40 mg Sucralfate (Carafate Oral Susp) 1 gm PO Q6 [facility] Last Admin: 01/18/17 12:25 Dose: 1 gm - Labs Labs: 01/18/17 06:24 01/18/17 06:24 PT 10.6 SECONDS (9.7-12.2) 01/13/17 18:26 INR 1.0 01/13/17 18:26 APTT 24 SECONDS (21-34) 01/13/17 18:26 - Constitutional Appears: Non-toxic, Chronically Ill - Head Exam Head Exam: NORMOCEPHALIC - Eye Exam Eye Exam: PERRL - ENT Exam ENT Exam: Mucous Membranes Dry, Normal External Ear Exam - Neck Exam Neck Exam: absent: Lymphadenopathy - Respiratory Exam Respiratory Exam: Decreased Breath Sounds, Rhonchi - Cardiovascular Exam Cardiovascular Exam: REGULAR RHYTHM - GI/Abdominal Exam GI & Abdominal Exam: Distended, Soft - Rectal Exam Rectal Exam: Deferred - Exam Exam: NORMAL INSPECTION - Extremities Exam Extremities Exam: absent: Pedal Edema - Back Exam Back Exam: absent: CVA tenderness (L), CVA tenderness (R) - Neurological Exam Neurological Exam: Alert, Awake, Oriented x3 - Psychiatric Exam Psychiatric exam: Depressed - Skin Skin Exam: Dry Assessment and Plan (1) Sepsis Status: Acute (2) Altered mental status Status: Acute (3) Elevated BUN Status: Acute - Assessment and Plan (Free Text) Assessment: s/p VDRF MS pneumonia decubiti lines removed d/c iv antibiotics if repeat cultures negative
--- NOTE | 2017-01-18 13:26 | CP.PCM.CON ---
History of Present Illness - History of Present Illness History of Present Illness: Mrs. Chavarria is a 76-year-old woman who lives in a alf as a result of advanced MS, and currently in the ICU due to worsening mental status as well as respiratory distress. Neurology was consulted to assist with the management and care regarding the potential influence of MS exacerbation on her symptoms. The patient complains of feeling short of breath and lethargic. She was sitting up in bed and leaning toward the right side. She followed commands, but was irritable and preferred to sleep. Review of Systems - Review of Systems All systems: reviewed and no additional remarkable complaints except Past Patient History - Infectious Disease Hx of Infectious Diseases: None - Tetanus Immunizations Tetanus Immunization: Up to Date - Past Medical History & Family History Past Medical History?: Yes - Past Social History Smoking Status: Never Smoked - CARDIAC Hx Hypertension: Yes - PULMONARY Hx Chronic Obstructive Pulmonary Disease (COPD): Yes - NEUROLOGICAL Hx Multiple Sclerosis: Yes - HEENT Hx HEENT Problems: Yes Hx Blind: No Hx Cataracts: Yes Hx Difficulty Chewing: No Hx Epistaxis: No Hx Glaucoma: No Hx Macular Degeneration: No Other/Comment: wears eyeglasses for reading - RENAL Hx Chronic Kidney Disease: Yes - ENDOCRINE/METABOLIC Hx Hyperthyroidism: No Hx Hypothyroidism: No - HEMATOLOGICAL/ONCOLOGICAL Hx Anemia: Yes - INTEGUMENTARY Hx Dermatological Problems: Yes Hx Eczema: Yes Hx Melanoma: No Hx Psoriasis: No Hx Squamous Cell: No Other/Comment: > hx of garvin hong syndrome, unknown precipitant. > hx of bullous pemphigoid - MUSCULOSKELETAL/RHEUMATOLOGICAL Hx Arthritis: Yes - GASTROINTESTINAL Hx Gastrointestinal Disorders: Yes Hx Constipation: Yes - GENITOURINARY/GYNECOLOGICAL Other/Comment: wears a diaper in the alf (as with all patients) - PSYCHIATRIC Hx Anxiety: Yes Hx Depression: Yes Hx Substance Use: No - SURGICAL HISTORY Hx Surgeries: Yes Other/Comment: IVC filter 5-6 years ago for b/l DVT - ANESTHESIA Hx Anesthesia: Yes Hx Anesthesia Reactions: No Hx Malignant Hyperthermia: No Meds Allergies/Adverse Reactions: Allergies Allergy/AdvReac Type Severity Reaction Status Date / Time ascorbic acid Allergy Severe ANAPHYLAXIS Verified 01/07/17 09:45 aspirin Allergy RASH Verified 01/07/17 09:45 iodine Allergy RASH Verified 01/07/17 09:45 Ponds cream Allergy Severe ANAPHYLAXIS Uncoded 05/07/16 00:13 - Medications Medications: Current Medications Albuterol Sulfate (Albuterol 0.083% Inhal Jeri (2.5 Mg/3 Ml) Ud) 2.5 mg INH RQ4 [facility] Last Admin: 01/18/17 11:21 Dose: 2.5 mg Piperacillin Sod/Tazobactam Sod (Zosyn 3.375 Gm Iv Premix) 3.375 gm in 50 mls @ 100 mls/hr IVPB Q8H [facility] Last Admin: 01/18/17 10:50 Dose: 100 mls/hr Fluconazole (Diflucan Iv 200 Mg/100 Ml Ns) 100 mls @ 100 mls/hr IVPB DAILY [facility] Last Admin: 01/18/17 09:47 Dose: 100 mls/hr Vancomycin/Sodium Chloride (Vancocin) 1 gm in 200 mls @ 133.333 mls/hr IVPB Q24H [facility] Stop: 01/20/17 12:01 Last Admin: 01/18/17 11:45 Dose: 133.333 mls/hr Insulin Aspart (Novolog) 0 unit SC Q6H [facility] PRN Reason: Protocol Last Admin: 01/18/17 12:28 Dose: 2 unit Lisinopril (Zestril) 5 mg PO DAILY [facility] Last Admin: 01/18/17 12:25 Dose: 5 mg Methylprednisolone (Solu-Medrol) 20 mg IVP Q12 [facility] Last Admin: 01/18/17 09:06 Dose: 20 mg Pantoprazole Sodium (Protonix Inj) 40 mg IVP Q12 [facility] Last Admin: 01/18/17 09:06 Dose: 40 mg Sucralfate (Carafate Oral Susp) 1 gm PO Q6 [facility] Last Admin: 01/18/17 12:25 Dose: 1 gm Physical Exam - Constitutional Appears: Chronically Ill - Head Exam Head Exam: NORMAL INSPECTION - Eye Exam Eye Exam: Normal appearance - ENT Exam ENT Exam: Mucous Membranes Moist - Neck Exam Neck exam: Positive for: Normal Inspection - Respiratory Exam Respiratory Exam: Decreased Breath Sounds, Rhonchi, Wheezes, Respiratory Distress - Cardiovascular Exam Cardiovascular Exam: REGULAR RHYTHM, +S1, +S2 - GI/Abdominal Exam GI & Abdominal Exam: Normal Bowel Sounds, Soft. absent: Tenderness - Rectal Exam Rectal Exam: Deferred - Extremities Exam Extremities exam: Positive for: normal inspection - Back Exam Back exam: NORMAL INSPECTION - Neurological Exam Neurological exam: CN II-XII Intact Additional comments: Oriented only to person and place, not time. Moves both upper extremities with 3/5 strength, bilateral lower extremity paraplegia, reflexes are brisk, upgoing plantar responses, sensation is intact throughout. - Psychiatric Exam Psychiatric exam: Agitated - Skin Skin Exam: Dry, Intact, Normal Color, Warm Results - Vital Signs Recent Vital Signs: Last Vital Signs Temp 97.4 F L 01/18/17 08:00 Pulse 87 01/18/17 13:00 Resp 15 01/18/17 13:00 BP 141/83 01/18/17 12:52 Pulse Ox 97 01/18/17 13:00 - Labs Result Diagrams: 01/18/17 06:24 01/18/17 06:24 Labs: Laboratory Results - last 24 hr 01/16/17 01/17/17 01/17/17 18:13 18:11 23:35 WBC RBC Hgb Hct MCV MCH MCHC RDW Plt Count MPV Neut % (Auto) Lymph % (Auto) Izard % (Auto) Eos % (Auto) Baso % (Auto) Neut # Lymph # Izard # Eos # Baso # Neutrophils % (Manual) Lymphocytes % (Manual) Monocytes % (Manual) Myelocytes % Nucleated RBC % Platelet Estimate Polychromasia Macrocytosis (manual) Haptoglobin 354 H Puncture Site pCO2 pO2 HCO3 ABG pH ABG Total CO2 ABG O2 Saturation ABG Base Excess ABG Hemoglobin ABG Carboxyhemoglobin POC ABG HHb (Measured) ABG Methemoglobin Jose Maria Test A-a O2 Difference Respiratory Index Hgb O2 Saturation Vent Mode FiO2 Inspiratory BiPAP Expiratory BiPAP Sodium Potassium Chloride Carbon Dioxide Anion Gap BUN Creatinine Est GFR ( Amer) Est GFR (Non-Af Amer) POC Glucose (mg/dL) 216 H 162 H Random Glucose Calcium Phosphorus Magnesium Total Bilirubin AST ALT Alkaline Phosphatase Total Protein Albumin Globulin Albumin/Globulin Ratio Vancomycin Trough 01/18/17 01/18/17 01/18/17 06:09 06:24 06:24 WBC 12.1 H RBC 3.18 L Hgb 10.1 L Hct 30.2 L MCV 94.8 D MCH 31.8 H MCHC 33.6 RDW 14.7 H Plt Count 274 MPV 9.0 Neut % (Auto) 95.7 H Lymph % (Auto) 2.3 L Izard % (Auto) 1.8 Eos % (Auto) 0.0 Baso % (Auto) 0.2 Neut # 11.6 H Lymph # 0.3 L Izard # 0.2 Eos # 0.0 Baso # 0.0 Neutrophils % (Manual) 94 H Lymphocytes % (Manual) 4 L Monocytes % (Manual) 1 Myelocytes % 1 H Nucleated RBC % 1 H Platelet Estimate Normal Polychromasia Slight Macrocytosis (manual) Slight Haptoglobin Puncture Site pCO2 pO2 HCO3 ABG pH ABG Total CO2 ABG O2 Saturation ABG Base Excess ABG Hemoglobin ABG Carboxyhemoglobin POC ABG HHb (Measured) ABG Methemoglobin Jose Maria Test A-a O2 Difference Respiratory Index Hgb O2 Saturation Vent Mode FiO2 Inspiratory BiPAP Expiratory BiPAP Sodium 143 Potassium 4.4 Chloride 108 H Carbon Dioxide 21 L Anion Gap 18 BUN 19 H Creatinine 0.6 L Est GFR ( Amer) > 60 Est GFR (Non-Af Amer) > 60 POC Glucose (mg/dL) 172 H Random Glucose 160 H Calcium 7.8 L Phosphorus 4.2 Magnesium 2.4 H Total Bilirubin 0.8 AST 55 H D ALT 75 H D Alkaline Phosphatase 59 Total Protein 5.2 L Albumin 2.8 L Globulin 2.4 Albumin/Globulin Ratio 1.2 Vancomycin Trough 01/18/17 01/18/17 01/18/17 06:40 06:42 12:22 WBC RBC Hgb Hct MCV MCH MCHC RDW Plt Count MPV Neut % (Auto) Lymph % (Auto) Izard % (Auto) Eos % (Auto) Baso % (Auto) Neut # Lymph # Izard # Eos # Baso # Neutrophils % (Manual) Lymphocytes % (Manual) Monocytes % (Manual) Myelocytes % Nucleated RBC % Platelet Estimate Polychromasia Macrocytosis (manual) Haptoglobin Puncture Site Rr pCO2 38 pO2 164 H HCO3 24.6 ABG pH 7.41 ABG Total CO2 25.3 ABG O2 Saturation 99.4 H ABG Base Excess -0.4 ABG Hemoglobin 9.8 L ABG Carboxyhemoglobin 1.4 POC ABG HHb (Measured) 0.6 ABG Methemoglobin 1.1 Jose Maria Test Pos A-a O2 Difference 359.0 Respiratory Index 2.2 Hgb O2 Saturation 96.9 Vent Mode Bipap FiO2 80.0 Inspiratory BiPAP 12 Expiratory BiPAP 6 Sodium Potassium Chloride Carbon Dioxide Anion Gap BUN Creatinine Est GFR ( Amer) Est GFR (Non-Af Amer) POC Glucose (mg/dL) 226 H Random Glucose Calcium Phosphorus Magnesium Total Bilirubin AST ALT Alkaline Phosphatase Total Protein Albumin Globulin Albumin/Globulin Ratio Vancomycin Trough 14.9 H Assessment & Plan - Assessment and Plan (Free Text) Assessment: Respiratory difficulty could be due to a cervical cord lesion, the paraplegia may be due to a thoracic cord lesion. Plan: I recommend obtaining an MRI of the brain and spine with and without contrast. If there is any contrast enhancing lesions, or suspicion of MS exacerbation, we may consider starting Solumedrol 1 gram/day for 3 days. Continue conservative management, PT/OT, DVT Px. Thank you.
--- NOTE | 2017-01-18 14:06 | CP.PCM.PN ---
<Neil Bui - Last Filed: 01/18/17 14:09> Subjective - Date & Time of Evaluation Date of Evaluation: 01/18/17 Time of Evaluation: 07:50 - Subjective Subjective: Cardiology Progress Note- Dr. Danielson's service Pt seen and examined. Patient s/p extubation on BiPAP. Patient appears withdrawn. Patient able to nod to ROS. She denies chest pain, palpitations, dyspnea, subjective fevers or chills, nausea or vomiting at this time. Objective - Vital Signs/Intake and Output Vital Signs (last 24 hours): Temp Pulse Resp BP Pulse Ox 97.4 F L 87 15 141/83 97 01/18/17 08:00 01/18/17 13:00 01/18/17 13:00 01/18/17 12:52 01/18/17 13:00 Intake and Output: 01/18/17 01/18/17 06:59 18:59 Intake Total 50 350 Output Total 500 195 Balance -450 155 - Medications Medications: Current Medications Albuterol Sulfate (Albuterol 0.083% Inhal Jeri (2.5 Mg/3 Ml) Ud) 2.5 mg INH RQ4 [facility] Last Admin: 01/18/17 11:21 Dose: 2.5 mg Piperacillin Sod/Tazobactam Sod (Zosyn 3.375 Gm Iv Premix) 3.375 gm in 50 mls @ 100 mls/hr IVPB Q8H [facility] Last Admin: 01/18/17 10:50 Dose: 100 mls/hr Fluconazole (Diflucan Iv 200 Mg/100 Ml Ns) 100 mls @ 100 mls/hr IVPB DAILY [facility] Last Admin: 01/18/17 09:47 Dose: 100 mls/hr Vancomycin/Sodium Chloride (Vancocin) 1 gm in 200 mls @ 133.333 mls/hr IVPB Q24H [facility] Stop: 01/20/17 12:01 Last Admin: 01/18/17 11:45 Dose: 133.333 mls/hr Insulin Aspart (Novolog) 0 unit SC Q6H [facility] PRN Reason: Protocol Last Admin: 01/18/17 12:28 Dose: 2 unit Lisinopril (Zestril) 5 mg PO DAILY [facility] Last Admin: 01/18/17 12:25 Dose: 5 mg Methylprednisolone (Solu-Medrol) 20 mg IVP Q12 [facility] Last Admin: 01/18/17 09:06 Dose: 20 mg Pantoprazole Sodium (Protonix Inj) 40 mg IVP Q12 [facility] Last Admin: 01/18/17 09:06 Dose: 40 mg Sucralfate (Carafate Oral Susp) 1 gm PO Q6 [facility] Last Admin: 01/18/17 12:25 Dose: 1 gm - Labs Labs: 01/18/17 06:24 01/18/17 06:24 PT 10.6 SECONDS (9.7-12.2) 01/13/17 18:26 INR 1.0 01/13/17 18:26 APTT 24 SECONDS (21-34) 01/13/17 18:26 - Constitutional Appears: Non-toxic, No Acute Distress - Head Exam Head Exam: ATRAUMATIC, NORMAL INSPECTION, NORMOCEPHALIC - Eye Exam Eye Exam: EOMI - ENT Exam ENT Exam: Mucous Membranes Moist - Neck Exam Neck Exam: Full ROM - Respiratory Exam Respiratory Exam: Decreased Breath Sounds, NORMAL BREATHING PATTERN - Cardiovascular Exam Cardiovascular Exam: +S1, +S2 - GI/Abdominal Exam GI & Abdominal Exam: Soft, Normal Bowel Sounds - Extremities Exam Extremities Exam: Pedal Edema - Neurological Exam Neurological Exam: Awake - Psychiatric Exam Psychiatric exam: Flat Affect - Skin Skin Exam: Dry Assessment and Plan - Assessment and Plan (Free Text) Assessment: CHF -BNP 47094 -Echo: Normal EF, mild pulmonary hypertension -Monitor Daily weight and I&Os HTN -Continue Lisinopril 5mg -Hold parameters in place for hypotension DM ISS Accuchecks History of PE -Lovenox SC held due to bleeding from ET tube Hyperlipidemia -Patient would benefit from Crestor Prophylactic Measure -Anticoagulation held due to bleeding from ET tube -PPI 40 mg IV Q12 Discussed with attending. Management and planning per Dr. Danielson <Florentino Danielson - Last Filed: 01/18/17 22:48> Objective - Vital Signs/Intake and Output Vital Signs (last 24 hours): Temp Pulse Resp BP Pulse Ox 98 F 95 H 21 148/70 97 01/18/17 16:00 01/18/17 19:53 01/18/17 19:53 01/18/17 19:53 01/18/17 19:53 Intake and Output: 01/18/17 01/19/17 18:59 06:59 Intake Total 590 0 Output Total 225 Balance 365 0 - Medications Medications: Current Medications Albuterol Sulfate (Albuterol 0.083% Inhal Jeri (2.5 Mg/3 Ml) Ud) 2.5 mg INH RQ4 [facility] Last Admin: 01/18/17 19:49 Dose: 2.5 mg Methylprednisolone 1 gm/ (Sodium Chloride) 100 mls @ 100 mls/hr IV Q24H [facility] Stop: 01/20/17 20:59 Last Admin: 01/18/17 20:34 Dose: 100 mls/hr Insulin Aspart (Novolog) 0 unit SC Q6H [facility] PRN Reason: Protocol Last Admin: 01/18/17 18:25 Dose: 2 unit Lisinopril (Zestril) 5 mg PO DAILY [facility] Last Admin: 01/18/17 12:25 Dose: 5 mg Pantoprazole Sodium (Protonix Inj) 40 mg IVP Q12 [facility] Last Admin: 01/18/17 09:06 Dose: 40 mg Sucralfate (Carafate Oral Susp) 1 gm PO Q6 [facility] Last Admin: 01/18/17 18:25 Dose: 1 gm - Labs Labs: 01/18/17 06:24 01/18/17 06:24 PT 10.6 SECONDS (9.7-12.2) 01/13/17 18:26 INR 1.0 01/13/17 18:26 APTT 24 SECONDS (21-34) 01/13/17 18:26 Assessment and Plan - Assessment and Plan (Free Text) Assessment: Patient seen and evaluated with the medical consultant Plan of care as documented
[2017-01-18] MEDS ORDERED: MethylPREDNISolone 1 gm Vial IV SCH (18:00)
--- NOTE | 2017-01-18 19:17 | CP.PCM.PN ---
Subjective - Date & Time of Evaluation Date of Evaluation: 01/18/17 Time of Evaluation: 19:16 - Subjective Subjective: Pt awake and alert today and off vent. Pt aware that she was very sick, and had barely survived this hospitalization. Pt grateful for everyone's efforts. Pt worried that she would lose her bed at [facility]. Had gotten used to the routine and the staff there, and desires to go back. Objective - Vital Signs/Intake and Output Vital Signs (last 24 hours): Temp Pulse Resp BP Pulse Ox 98 F 94 H 12 164/77 H 94 L 01/18/17 16:00 01/18/17 18:00 01/18/17 18:00 01/18/17 17:53 01/18/17 18:00 Intake and Output: 01/18/17 01/19/17 18:59 06:59 Intake Total 590 Output Total 225 Balance 365 - Medications Medications: Current Medications Albuterol Sulfate (Albuterol 0.083% Inhal Jeri (2.5 Mg/3 Ml) Ud) 2.5 mg INH RQ4 [facility] Last Admin: 01/18/17 16:07 Dose: 2.5 mg Methylprednisolone 1 gm/ (Sodium Chloride) 100 mls @ 100 mls/hr IV Q24H [facility] Stop: 01/20/17 20:59 Insulin Aspart (Novolog) 0 unit SC Q6H [facility] PRN Reason: Protocol Last Admin: 01/18/17 18:25 Dose: 2 unit Lisinopril (Zestril) 5 mg PO DAILY [facility] Last Admin: 01/18/17 12:25 Dose: 5 mg Pantoprazole Sodium (Protonix Inj) 40 mg IVP Q12 [facility] Last Admin: 01/18/17 09:06 Dose: 40 mg Sucralfate (Carafate Oral Susp) 1 gm PO Q6 [facility] Last Admin: 01/18/17 18:25 Dose: 1 gm - Labs Labs: 01/18/17 06:24 01/18/17 06:24 PT 10.6 SECONDS (9.7-12.2) 01/13/17 18:26 INR 1.0 01/13/17 18:26 APTT 24 SECONDS (21-34) 01/13/17 18:26 - Constitutional Appears: No Acute Distress - Head Exam Head Exam: NORMAL INSPECTION, NORMOCEPHALIC - Eye Exam Eye Exam: Normal appearance - ENT Exam ENT Exam: Normal Exam - Neck Exam Neck Exam: Normal Inspection - Respiratory Exam Respiratory Exam: Clear to Ausculation Bilateral, NORMAL BREATHING PATTERN - Cardiovascular Exam Cardiovascular Exam: REGULAR RHYTHM - GI/Abdominal Exam GI & Abdominal Exam: Normal Bowel Sounds - Rectal Exam Rectal Exam: Deferred - Back Exam Back Exam: NORMAL INSPECTION - Neurological Exam Neurological Exam: Alert, Awake Additional comments: oriented to time and place - Psychiatric Exam Psychiatric exam: Normal Affect, Normal Mood - Skin Skin Exam: Dry, Intact, Normal Color, Warm Assessment and Plan (1) Anemia Assessment & Plan: found to have GI bleeding which resolved by itself. Status: Acute (2) Occult blood in stools Assessment & Plan: for colonoscopy per GI Status: Acute (3) Physical debility Assessment & Plan: will need extensive rehab once back at [place] Status: Chronic (4) Respiratory failure Assessment & Plan: resolved. Status: Resolved (5) Multiple sclerosis Assessment & Plan: end- stage and influences decisions arrived at regarding this condition. Status: Chronic
[2017-01-18] MEDS: methylPREDNISolone 1 GM in Sodium Chloride 0.9% 100 ML IV SCH (20:34)
[2017-01-19] MEDS: (Novolog) Insulin Aspart, Recombinant 100 u/ml 10 ml vial SC SCH ×4 (00:38→18:11)
[2017-01-19] MEDS: Sucralfate 1 gm/10 ml Oral Susp UD PO SCH ×4 (00:38→18:11)
[2017-01-19] MEDS: Albuterol 0.083% Inhal Sol (2.5 mg/3 mL) UD INH SCH ×5 (05:04→19:47)
[2017-01-19 06:51] LABS: HEMATOCRIT 28.8 % (34.0-47.0); LYMPH # 0.2 K/uL (1.0-4.3); LYMPH % 2.1 % (20.0-40.0); MEAN CELL VOLUME 92.9 fL (81.0-99.0); MEAN CORPUSCULAR HEMOGLOBIN 31.8 pg (27.0-31.0); MEAN CORPUSCULAR HGB CONC 34.2 g/dL (33.0-37.0); MEAN PLATELET VOLUME 8.7 fL (7.2-11.7); MONO # 0.1 K/uL (0.0-0.8); MONO % 1.3 % (0.0-10.0); NRBC % 2.3 % (0.0-2.0); PLATELET COUNT 309 K/uL (130-400); RED CELL DISTRIBUTION WIDTH 14.3 % (11.5-14.5); WHITE BLOOD COUNT 9.4 K/uL (4.8-10.8)
[2017-01-19 07:11] LABS: CHLORIDE 105 mmol/L (98-107); POTASSIUM 3.5 mmol/L (3.6-5.2); SODIUM 144 mmol/L (132-148)
[2017-01-19 07:13] LABS: BILIRUBIN,TOTAL 0.9 mg/dL (0.2-1.3); GFR AFRICAN-AMERICAN > 60
[2017-01-19 07:14] LABS: ALB/GLOB RATIO 1.1 (1.0-2.1); ALKALINE PHOSPHATASE 61 U/L (38-126); ALT/SGPT 55 U/L (9-52); AST/SGOT 29 U/L (14-36); BLOOD UREA NITROGEN 17 mg/dL (7-17); CARBON DIOXIDE 25 mmol/L (22-30); GLUCOSE,RANDOM 224 mg/dL (65-105); TOTAL PROTEIN 5.4 g/dL (6.3-8.3)
[2017-01-19 07:15] LABS: CALCIUM 7.9 mg/dl (8.6-10.4); MAGNESIUM 2.2 mg/dL (1.6-2.3)
[2017-01-19 08:46] LABS: METAMYELOCYTE 1 % (0-0); NEUTROPHIL 95 % (50-75); NUCLEATED RED BLOOD CELL 1 % (0-0); TOTAL CELLS COUNTED 100
[2017-01-19] MEDS ORDERED: Potassium Phosphate 15 MMOLE in Sodium Chloride 0.9% 250 ML IVPB ONE (13:30)
--- NOTE | 2017-01-19 15:26 | CP.CCUPN ---
CCU Subjective - Physician Review Events Since Last Encounter (Free Text): 01/19/17 15:24 patient was extubated. Patient is currently tolerating oral feeding. She's not in any distress. Using the cannula. Awake and responding. No chest pain. on examination: Chest decreased air entry right lung post Regular heart sound Pedal edema No abdomen tenderness Chest x-ray reviewed Labs reviewed Assessment and recommendation: 76-year-old female with a history of hypertension, COPD, obesity hypoventilation , obstructive sleep apnea, atrial fibrillation, congestive heart failure. Right lung pneumonia. Acute respiratory failure, status post ventilation. Currently doing well. We'll possibly transfer the patient to the floor. Physical therapy CCU Objective - Vital Signs / Intake & Output Vital Signs (Last 4 hours): Vital Signs Temp Pulse Resp BP Pulse Ox 01/19/17 13:20 134/75 01/19/17 13:19 99 H 21 98 01/19/17 13:00 112 H 24 93 L 01/19/17 12:00 98.3 F 112 H 34 H 92 L Intake and Output (Last 8hrs): Intake & Output 01/19/17 01/19/17 01/19/17 06:59 14:59 22:59 Intake Total 350 120 Output Total 200 Balance 150 120 Weight 131 lb 9.6 oz Intake: Oral 350 120 Output: Urine 200 Urine, Voided 200 Other: # Bowel Movements 1 - Physical Exam Head: Positive for: Atraumatic, Normocephalic Pupils: Positive for: PERRL Extroacular Muscles: Positive for: EOMI Mouth: Positive for: Other (w/ dentures) Nose (External): Positive for: Atraumatic. Negative for: Abrasion, Contusion, Laceration Neck: Negative for: JVD, Lymphadenopathy Respiratory/Chest: Positive for: Clear to Auscultation, Other (on ventilator). Negative for: Respiratory Distress Cardiovascular: Positive for: Regular Rate and Rhythm, Normal S1, S2. Negative for: Murmurs, Tachycardic Abdomen: Positive for: Normal Bowel Sounds. Negative for: Tenderness, Distention Upper Extremity: Positive for: NORMAL PULSES. Negative for: Edema Lower Extremity: Positive for: NORMAL PULSES. Negative for: Edema Neurological: Negative for: Speech Normal Skin: Positive for: Warm, Normal Color Psychiatric: Positive for: Alert - Medications Active Medications: Active Medications Generic Name Dose Route Start Last Admin Trade Name Freq PRN Reason Stop Dose Admin Albuterol Sulfate 2.5 mg 01/13/17 16:00 01/19/17 11:20 Albuterol 0.083% Inhal Jeri (2.5 Mg/3 Ml) Ud INH 2.5 mg RQ4 [facility] Administration Methylprednisolone 1 gm/ 100 mls @ 100 mls/hr 01/18/17 20:00 01/18/17 20:34 Sodium Chloride IV 01/20/17 20:59 100 mls/hr Q24H [facility] Administration Potassium Phosphate 15 mmole/ 255 mls @ 42.5 mls/hr 01/19/17 13:30 01/19/17 13:53 Sodium Chloride IVPB 01/19/17 19:29 42.5 mls/hr ONCE ONE Administration Insulin Aspart 0 unit 01/16/17 18:00 01/19/17 12:34 Novolog SC 2 unit Q6H [facility] Administration Protocol Lisinopril 5 mg 01/09/17 10:00 01/19/17 09:51 Zestril PO 5 mg DAILY [facility] Administration Pantoprazole Sodium 40 mg 01/16/17 10:45 01/19/17 09:51 Protonix Inj IVP 40 mg Q12 [facility] Administration Sucralfate 1 gm 01/16/17 10:45 01/19/17 12:33 Carafate Oral Susp PO 1 gm Q6 [facility] Administration - Patient Studies Lab Studies: Microbiology Studies 01/18/17 12:30 Blood Culture - Preliminary Blood-Venous NO GROWTH AFTER 24 HOURS 01/18/17 12:00 Blood Culture - Preliminary Blood-Venous NO GROWTH AFTER 24 HOURS 01/13/17 15:30 Blood Culture - Final Blood-Venous NO GROWTH AFTER 5 DAYS Gram Stain - Final TEST NOT PERFORMED 01/13/17 16:00 Blood Culture - Final Blood-Venous NO GROWTH AFTER 5 DAYS Gram Stain - Final TEST NOT PERFORMED Lab Studies 01/19/17 01/19/17 01/19/17 Range/Units 11:14 06:50 06:41 WBC (4.8-10.8) K/uL RBC (3.80-5.20) Mil/uL Hgb (11.0-16.0) g/dL Hct (34.0-47.0) % MCV (81.0-99.0) fL MCH (27.0-31.0) pg MCHC (33.0-37.0) g/dL RDW (11.5-14.5) % Plt Count (130-400) K/uL MPV (7.2-11.7) fL Neut % (Auto) (50.0-75.0) % Lymph % (Auto) (20.0-40.0) % Amador % (Auto) (0.0-10.0) % Eos % (Auto) (0.0-4.0) % Baso % (Auto) (0.0-2.0) % Neut # (1.8-7.0) K/uL Lymph # (1.0-4.3) K/uL Amador # (0.0-0.8) K/uL Eos # (0.0-0.7) K/uL Baso # (0.0-0.2) K/uL Neutrophils % (Manual) (50-75) % Band Neutrophils % (0-2) % Lymphocytes % (Manual) (20-40) % Monocytes % (Manual) (0-10) % Metamyelocytes % (0-0) % Nucleated RBC % (0-0) % Platelet Estimate (NORMAL) Polychromasia Basophilic Stippling Anisocytosis (manual) Ovalocytes Schistocytes Sodium 144 (132-148) mmol/L Potassium 3.5 L (3.6-5.2) mmol/L Chloride 105 (98-107) mmol/L Carbon Dioxide 25 (22-30) mmol/L Anion Gap 17 (10-20) BUN 17 (7-17) mg/dL Creatinine 0.5 L (0.7-1.2) MG/DL Est GFR ( Amer) > 60 Est GFR (Non-Af Amer) > 60 POC Glucose (mg/dL) 219 H 265 H (65-110) mg/dL Random Glucose 224 H (65-105) mg/dL Calcium 7.9 L (8.6-10.4) mg/dl Phosphorus 2.0 L (2.5-4.5) mg/dL Magnesium 2.2 (1.6-2.3) mg/dL Total Bilirubin 0.9 (0.2-1.3) mg/dL AST 29 (14-36) U/L ALT 55 H D (9-52) U/L Alkaline Phosphatase 61 (38-126) U/L Total Protein 5.4 L (6.3-8.3) g/dL Albumin 2.8 L (3.5-5.0) g/dL Globulin 2.5 (2.2-3.9) gm/dL Albumin/Globulin Ratio 1.1 (1.0-2.1) 01/19/17 01/19/17 01/18/17 Range/Units 06:41 00:25 17:43 WBC 9.4 (4.8-10.8) K/uL RBC 3.10 L (3.80-5.20) Mil/uL Hgb 9.9 L (11.0-16.0) g/dL Hct 28.8 L (34.0-47.0) % MCV 92.9 (81.0-99.0) fL MCH 31.8 H (27.0-31.0) pg MCHC 34.2 (33.0-37.0) g/dL RDW 14.3 (11.5-14.5) % Plt Count 309 (130-400) K/uL MPV 8.7 (7.2-11.7) fL Neut % (Auto) 96.6 H (50.0-75.0) % Lymph % (Auto) 2.1 L (20.0-40.0) % Amador % (Auto) 1.3 (0.0-10.0) % Eos % (Auto) 0.0 (0.0-4.0) % Baso % (Auto) 0.0 (0.0-2.0) % Neut # 9.1 H (1.8-7.0) K/uL Lymph # 0.2 L (1.0-4.3) K/uL Amador # 0.1 (0.0-0.8) K/uL Eos # 0.0 (0.0-0.7) K/uL Baso # 0.0 (0.0-0.2) K/uL Neutrophils % (Manual) 95 H (50-75) % Band Neutrophils % 1 (0-2) % Lymphocytes % (Manual) 2 L (20-40) % Monocytes % (Manual) 1 (0-10) % Metamyelocytes % 1 H (0-0) % Nucleated RBC % 1 H (0-0) % Platelet Estimate Normal (NORMAL) Polychromasia Slight Basophilic Stippling Slight Anisocytosis (manual) Slight Ovalocytes Slight Schistocytes Slight Sodium (132-148) mmol/L Potassium (3.6-5.2) mmol/L Chloride (98-107) mmol/L Carbon Dioxide (22-30) mmol/L Anion Gap (10-20) BUN (7-17) mg/dL Creatinine (0.7-1.2) MG/DL Est GFR ( Amer) Est GFR (Non-Af Amer) POC Glucose (mg/dL) 236 H 200 H (65-110) mg/dL Random Glucose (65-105) mg/dL Calcium (8.6-10.4) mg/dl Phosphorus (2.5-4.5) mg/dL Magnesium (1.6-2.3) mg/dL Total Bilirubin (0.2-1.3) mg/dL AST (14-36) U/L ALT (9-52) U/L Alkaline Phosphatase (38-126) U/L Total Protein (6.3-8.3) g/dL Albumin (3.5-5.0) g/dL Globulin (2.2-3.9) gm/dL Albumin/Globulin Ratio (1.0-2.1) Laboratory Results - last 24 hr 01/18/17 01/19/17 01/19/17 17:43 00:25 06:41 WBC 9.4 RBC 3.10 L Hgb 9.9 L Hct 28.8 L MCV 92.9 MCH 31.8 H MCHC 34.2 RDW 14.3 Plt Count 309 MPV 8.7 Neut % (Auto) 96.6 H Lymph % (Auto) 2.1 L Amador % (Auto) 1.3 Eos % (Auto) 0.0 Baso % (Auto) 0.0 Neut # 9.1 H Lymph # 0.2 L Amador # 0.1 Eos # 0.0 Baso # 0.0 Neutrophils % (Manual) 95 H Band Neutrophils % 1 Lymphocytes % (Manual) 2 L Monocytes % (Manual) 1 Metamyelocytes % 1 H Nucleated RBC % 1 H Platelet Estimate Normal Polychromasia Slight Basophilic Stippling Slight Anisocytosis (manual) Slight Ovalocytes Slight Schistocytes Slight Sodium Potassium Chloride Carbon Dioxide Anion Gap BUN Creatinine Est GFR ( Amer) Est GFR (Non-Af Amer) POC Glucose (mg/dL) 200 H 236 H Random Glucose Calcium Phosphorus Magnesium Total Bilirubin AST ALT Alkaline Phosphatase Total Protein Albumin Globulin Albumin/Globulin Ratio 01/19/17 01/19/17 01/19/17 06:41 06:50 11:14 WBC RBC Hgb Hct MCV MCH MCHC RDW Plt Count MPV Neut % (Auto) Lymph % (Auto) Amador % (Auto) Eos % (Auto) Baso % (Auto) Neut # Lymph # Amador # Eos # Baso # Neutrophils % (Manual) Band Neutrophils % Lymphocytes % (Manual) Monocytes % (Manual) Metamyelocytes % Nucleated RBC % Platelet Estimate Polychromasia Basophilic Stippling Anisocytosis (manual) Ovalocytes Schistocytes Sodium 144 Potassium 3.5 L Chloride 105 Carbon Dioxide 25 Anion Gap 17 BUN 17 Creatinine 0.5 L Est GFR ( Amer) > 60 Est GFR (Non-Af Amer) > 60 POC Glucose (mg/dL) 265 H 219 H Random Glucose 224 H Calcium 7.9 L Phosphorus 2.0 L Magnesium 2.2 Total Bilirubin 0.9 AST 29 ALT 55 H D Alkaline Phosphatase 61 Total Protein 5.4 L Albumin 2.8 L Globulin 2.5 Albumin/Globulin Ratio 1.1 Fingerstick Blood Sugar Results: 200 Critical Care Progress Note - Nutrition Nutrition: Nutrition Category Date Time Status Dysphagia/Modified Consistency Diet [DIET] Diets 01/18/17 Lunch Active
[2017-01-19] MEDS: methylPREDNISolone 1 GM in Sodium Chloride 0.9% 100 ML IV SCH (20:14)
--- NOTE | 2017-01-19 20:15 | CP.PCM.PN ---
Subjective - Date & Time of Evaluation Date of Evaluation: 01/19/17 Time of Evaluation: 16:00 - Subjective Subjective: Patient seen and evaluated Extubated and comfortable Alert and responsive Physical Examination - Constitutional Appears: Non-toxic, No Acute Distress - Head Exam Head Exam: ATRAUMATIC, NORMAL INSPECTION, NORMOCEPHALIC - Eye Exam Eye Exam: EOMI - ENT Exam ENT Exam: Mucous Membranes Moist - Neck Exam Neck Exam: Full ROM - Respiratory Exam Respiratory Exam: Decreased Breath Sounds, NORMAL BREATHING PATTERN - Cardiovascular Exam Cardiovascular Exam: +S1, +S2 - GI/Abdominal Exam GI & Abdominal Exam: Soft, Normal Bowel Sounds - Extremities Exam Extremities Exam: Pedal Edema - Neurological Exam Neurological Exam: Awake - Psychiatric Exam Psychiatric exam: Flat Affect - Skin Skin Exam: Dry Objective - Vital Signs/Intake and Output Vital Signs (last 24 hours): Temp Pulse Resp BP Pulse Ox 97.3 F L 92 H 24 132/78 97 01/19/17 20:00 01/19/17 19:00 01/19/17 19:00 01/19/17 18:17 01/19/17 19:00 Intake and Output: 01/19/17 01/20/17 18:59 06:59 Intake Total 730 242 Output Total 100 Balance 630 242 - Medications Medications: Current Medications Albuterol Sulfate (Albuterol 0.083% Inhal Jeri (2.5 Mg/3 Ml) Ud) 2.5 mg INH RQ4 [facility] Last Admin: 01/19/17 19:47 Dose: 2.5 mg Methylprednisolone 1 gm/ (Sodium Chloride) 100 mls @ 100 mls/hr IV Q24H [facility] Stop: 01/20/17 20:59 Last Admin: 01/18/17 20:34 Dose: 100 mls/hr Insulin Aspart (Novolog) 0 unit SC Q6H [facility] PRN Reason: Protocol Last Admin: 01/19/17 18:11 Dose: 2 unit Lisinopril (Zestril) 5 mg PO DAILY [facility] Last Admin: 01/19/17 09:51 Dose: 5 mg Pantoprazole Sodium (Protonix Inj) 40 mg IVP Q12 [facility] Last Admin: 01/19/17 09:51 Dose: 40 mg Sucralfate (Carafate Oral Susp) 1 gm PO Q6 [facility] Last Admin: 01/19/17 18:11 Dose: 1 gm - Labs Labs: 01/19/17 06:41 01/19/17 06:41 PT 10.6 SECONDS (9.7-12.2) 01/13/17 18:26 INR 1.0 01/13/17 18:26 APTT 24 SECONDS (21-34) 01/13/17 18:26 Assessment and Plan - Assessment and Plan (Free Text) Assessment: Assessment and Plan - Assessment and Plan (Free Text) Assessment: CHF Diastolic with normal EF HX of A Fib. Guiac Positive stools -Anti coagulation held HTN -Continue Lisinopril 5mg -Hold parameters in place for hypotension DM ISS Accuchecks History of PE -Lovenox SC held due to bleeding from ET tube Hyperlipidemia -Patient would benefit from Crestor Prophylactic Measure -Venodynes -PPI 40 mg IV Q12
[2017-01-20] MEDS: (Novolog) Insulin Aspart, Recombinant 100 u/ml 10 ml vial SC SCH ×5 (00:27→22:20)
[2017-01-20] MEDS: Sucralfate 1 gm/10 ml Oral Susp UD PO SCH ×4 (00:33→17:16)
[2017-01-20] MEDS: Albuterol 0.083% Inhal Sol (2.5 mg/3 mL) UD INH SCH ×7 (00:43→23:53)
[2017-01-20 06:55] LABS: BASO % 0.1 % (0.0-2.0); HEMATOCRIT 27.8 % (34.0-47.0); LYMPH # 0.1 K/uL (1.0-4.3); LYMPH % 1.7 % (20.0-40.0); MEAN CELL VOLUME 93.1 fL (81.0-99.0); MEAN CORPUSCULAR HEMOGLOBIN 32.1 pg (27.0-31.0); MEAN CORPUSCULAR HGB CONC 34.5 g/dL (33.0-37.0); MEAN PLATELET VOLUME 9.1 fL (7.2-11.7); MONO # 0.2 K/uL (0.0-0.8); MONO % 3.6 % (0.0-10.0); NRBC % 3.4 % (0.0-2.0); PLATELET COUNT 286 K/uL (130-400); RED CELL DISTRIBUTION WIDTH 14.2 % (11.5-14.5); WHITE BLOOD COUNT 6.4 K/uL (4.8-10.8)
[2017-01-20 07:08] LABS: CHLORIDE 106 mmol/L (98-107); POTASSIUM 3.4 mmol/L (3.6-5.2); SODIUM 141 mmol/L (132-148)
[2017-01-20 07:10] LABS: BILIRUBIN,TOTAL 0.8 mg/dL (0.2-1.3); CARBON DIOXIDE 27 mmol/L (22-30); GFR AFRICAN-AMERICAN > 60
[2017-01-20 07:11] LABS: ALB/GLOB RATIO 1.1 (1.0-2.1); ALKALINE PHOSPHATASE 57 U/L (38-126); ALT/SGPT 55 U/L (9-52); AST/SGOT 19 U/L (14-36); BLOOD UREA NITROGEN 16 mg/dL (7-17); CALCIUM 8.2 mg/dl (8.6-10.4); GLUCOSE,RANDOM 228 mg/dL (65-105); MAGNESIUM 2.1 mg/dL (1.6-2.3); PHOSPHOROUS 2.3 mg/dL (2.5-4.5)
[2017-01-20] MEDS ORDERED: (Novolog) Insulin Aspart, Recombinant 100 u/ml 10 ml vial SC SCH (07:30)
[2017-01-20 08:40] LABS: NUCLEATED RED BLOOD CELL 2 % (0-0); TOTAL CELLS COUNTED 100
[2017-01-20 08:41] LABS: EOSINOPHIL 2 % (0-4); NEUTROPHIL 91 % (50-75)
[2017-01-20 08:42] LABS: LARGE PLATELETS PRESENT; PLATELET CLUMPS PRESENT
[2017-01-20] MEDS: Potassium Chloride 20 mEq ER Tab PO SCH (10:08)
--- NOTE | 2017-01-20 12:15 | CP.PCM.PN ---
Subjective - Date & Time of Evaluation Date of Evaluation: 01/20/17 Time of Evaluation: 12:12 - Subjective Subjective: Covering Dr Farris CC: Follow up anemia Extubated Looks comfortable Hgb Stable. No overt bleeding Objective - Vital Signs/Intake and Output Vital Signs (last 24 hours): Temp Pulse Resp BP Pulse Ox 97.5 F L 119 H 21 145/78 99 01/20/17 08:00 01/20/17 10:17 01/20/17 10:17 01/20/17 10:17 01/20/17 10:17 Intake and Output: 01/20/17 01/20/17 06:59 18:59 Intake Total 567 145 Output Total 100 Balance 467 145 - Medications Medications: Current Medications Albuterol Sulfate (Albuterol 0.083% Inhal Jeri (2.5 Mg/3 Ml) Ud) 2.5 mg INH RQ4 [facility] Last Admin: 01/20/17 11:09 Dose: 2.5 mg Methylprednisolone 1 gm/ (Sodium Chloride) 100 mls @ 100 mls/hr IV Q24H [facility] Stop: 01/20/17 20:59 Last Admin: 01/19/17 20:14 Dose: 100 mls/hr Insulin Aspart (Novolog) 0 unit SC ACHS [facility] PRN Reason: Protocol Last Admin: 01/20/17 11:51 Dose: 3 unit Lisinopril (Zestril) 5 mg PO DAILY [facility] Last Admin: 01/20/17 10:09 Dose: 5 mg Pantoprazole Sodium (Protonix Inj) 40 mg IVP Q12 [facility] Last Admin: 01/20/17 10:09 Dose: 40 mg Potassium Chloride (K-Dur 20 Meq Er Tab) 40 meq PO DAILY [facility] Last Admin: 01/20/17 10:08 Dose: 40 meq Sucralfate (Carafate Oral Susp) 1 gm PO Q6 [facility] Last Admin: 01/20/17 11:53 Dose: 1 gm - Labs Labs: 01/20/17 06:49 01/20/17 06:49 PT 10.6 SECONDS (9.7-12.2) 01/13/17 18:26 INR 1.0 01/13/17 18:26 APTT 24 SECONDS (21-34) 01/13/17 18:26 - Constitutional Appears: No Acute Distress, Chronically Ill - Head Exam Head Exam: NORMOCEPHALIC - Respiratory Exam Respiratory Exam: NORMAL BREATHING PATTERN - Cardiovascular Exam Cardiovascular Exam: REGULAR RHYTHM - GI/Abdominal Exam GI & Abdominal Exam: Soft. absent: Tenderness Assessment and Plan (1) Anemia Assessment & Plan: Presented with severe anemia EGD unremarkable Colonoscopy planned by Dr Farris when stable to undergo Status: Acute (2) Occult blood in stools Assessment & Plan: See above Status: Acute
--- NOTE | 2017-01-20 14:28 | CP.PCM.PN ---
Subjective - Date & Time of Evaluation Date of Evaluation: 01/20/17 Time of Evaluation: 08:00 - Subjective Subjective: doing better s/p extubation awake alert wants to go back to [facility] denies feer or chills GI eval in progress Objective - Vital Signs/Intake and Output Vital Signs (last 24 hours): Temp Pulse Resp BP Pulse Ox 97.5 F L 95 H 25 H 137/75 96 01/20/17 12:00 01/20/17 14:17 01/20/17 14:17 01/20/17 14:17 01/20/17 14:17 Intake and Output: 01/20/17 01/20/17 06:59 18:59 Intake Total 567 245 Output Total 100 Balance 467 245 - Medications Medications: Current Medications Albuterol Sulfate (Albuterol 0.083% Inhal Jeri (2.5 Mg/3 Ml) Ud) 2.5 mg INH RQ4 [facility] Last Admin: 01/20/17 11:09 Dose: 2.5 mg Heparin Sodium (Porcine) (Heparin) 5,000 units SC Q12 [facility] Methylprednisolone 1 gm/ (Sodium Chloride) 100 mls @ 100 mls/hr IV Q24H [facility] Stop: 01/20/17 20:59 Last Admin: 01/19/17 20:14 Dose: 100 mls/hr Insulin Aspart (Novolog) 0 unit SC ACHS [facility] PRN Reason: Protocol Last Admin: 01/20/17 11:51 Dose: 3 unit Lisinopril (Zestril) 5 mg PO DAILY [facility] Last Admin: 01/20/17 10:09 Dose: 5 mg Pantoprazole Sodium (Protonix Inj) 40 mg IVP Q12 [facility] Last Admin: 01/20/17 10:09 Dose: 40 mg Potassium Chloride (K-Dur 20 Meq Er Tab) 40 meq PO DAILY [facility] Last Admin: 01/20/17 10:08 Dose: 40 meq Sucralfate (Carafate Oral Susp) 1 gm PO Q6 [facility] Last Admin: 01/20/17 11:53 Dose: 1 gm - Labs Labs: 01/20/17 06:49 01/20/17 06:49 PT 10.6 SECONDS (9.7-12.2) 01/13/17 18:26 INR 1.0 01/13/17 18:26 APTT 24 SECONDS (21-34) 01/13/17 18:26 - Constitutional Appears: Non-toxic, Cachectic, Chronically Ill - Head Exam Head Exam: NORMOCEPHALIC - Eye Exam Eye Exam: PERRL. absent: Scleral icterus - ENT Exam ENT Exam: Mucous Membranes Dry - Neck Exam Neck Exam: absent: Lymphadenopathy - Respiratory Exam Respiratory Exam: Decreased Breath Sounds - Cardiovascular Exam Cardiovascular Exam: REGULAR RHYTHM - GI/Abdominal Exam GI & Abdominal Exam: Distended, Soft. absent: Tenderness - Rectal Exam Rectal Exam: Deferred - Exam Exam: NORMAL INSPECTION - Extremities Exam Extremities Exam: absent: Pedal Edema - Back Exam Back Exam: absent: CVA tenderness (L), CVA tenderness (R), paraspinal tenderness - Neurological Exam Neurological Exam: Alert, Awake, Oriented x3 - Psychiatric Exam Psychiatric exam: Normal Mood - Skin Skin Exam: Dry, Intact Assessment and Plan (1) Sepsis Status: Acute (2) Altered mental status Status: Acute (3) Elevated BUN Status: Acute - Assessment and Plan (Free Text) Assessment: improvement noted s/p resp failure / sepsis blood c/s grew coag neg staph and pt treated with vanco IV and had lines changed GI eval is in progress pt has hx of sacral decubitus/ OM in the past Consider repeat CT sacrum when stable
--- NOTE | 2017-01-20 20:49 | CP.PCM.PN ---
Subjective - Date & Time of Evaluation Date of Evaluation: 01/20/17 Time of Evaluation: 08:00 - Subjective Subjective: No events, patient has been alert and oriented, she also gets very anxious about PT. Objective - Vital Signs/Intake and Output Vital Signs (last 24 hours): Temp Pulse Resp BP Pulse Ox 97.5 F L 76 14 132/64 100 01/20/17 16:00 01/20/17 19:00 01/20/17 19:00 01/20/17 18:17 01/20/17 19:00 Intake and Output: 01/20/17 01/21/17 18:59 06:59 Intake Total 395 0 Output Total 50 0 Balance 345 0 - Medications Medications: Current Medications Albuterol Sulfate (Albuterol 0.083% Inhal Jeri (2.5 Mg/3 Ml) Ud) 2.5 mg INH RQ4 [facility] Last Admin: 01/20/17 17:32 Dose: Not Given Heparin Sodium (Porcine) (Heparin) 5,000 units SC Q12 [facility] Methylprednisolone 1 gm/ (Sodium Chloride) 100 mls @ 100 mls/hr IV Q24H [facility] Stop: 01/20/17 20:59 Last Admin: 01/19/17 20:14 Dose: 100 mls/hr Insulin Aspart (Novolog) 0 unit SC ACHS [facility] PRN Reason: Protocol Last Admin: 01/20/17 17:16 Dose: 3 unit Lisinopril (Zestril) 5 mg PO DAILY [facility] Last Admin: 01/20/17 10:09 Dose: 5 mg Pantoprazole Sodium (Protonix Inj) 40 mg IVP Q12 [facility] Last Admin: 01/20/17 10:09 Dose: 40 mg Potassium Chloride (K-Dur 20 Meq Er Tab) 40 meq PO DAILY [facility] Last Admin: 01/20/17 10:08 Dose: 40 meq Sucralfate (Carafate Oral Susp) 1 gm PO Q6 [facility] Last Admin: 01/20/17 17:16 Dose: 1 gm - Labs Labs: 01/20/17 06:49 01/20/17 06:49 PT 10.6 SECONDS (9.7-12.2) 01/13/17 18:26 INR 1.0 01/13/17 18:26 APTT 24 SECONDS (21-34) 01/13/17 18:26 - Additional Findings Additional findings: * HEENT SABINO * Neck Supple * Chest clear, reduced in right base > left * CVS Regular, no gallop or rb * PA soft, NT, bs present * Ext no edema * COMMUNICATIONS TECHNOLOGIST weak both legs * COMMUNICATIONS TECHNOLOGIST awake oriented x3 Assessment and Plan - Assessment and Plan (Free Text) Assessment: Assessment and Plan * Admitted to ICU with resp failure form PNA, MS on vent had AA gradient not extubated on 4lit no bipap need in last 48 hrs off abx * Anemia this admission probably from gi loss, stable now * History of MS currently started on pulse dose steroid by neurology empirically due to intermittent weakness and MS changes as pt refused to go form MRI, pt received 2 doses, 3rd dose today will not need any tapering. * H/o PE, started on subq heparin for dvt prophylaxis pt has ivc filter * paraplegia form MS
[2017-01-20] MEDS: methylPREDNISolone 1 GM in Sodium Chloride 0.9% 100 ML IV SCH (20:50)
--- NOTE | 2017-01-20 21:30 | CP.PCM.PN ---
Subjective - Date & Time of Evaluation Date of Evaluation: 01/20/17 Time of Evaluation: 08:00 - Subjective Subjective: Patient seen and evaluated Not in distress Alert and responsive Physical Examination - Constitutional Appears: Non-toxic, No Acute Distress - Head Exam Head Exam: ATRAUMATIC, NORMAL INSPECTION, NORMOCEPHALIC - Eye Exam Eye Exam: EOMI - ENT Exam ENT Exam: Mucous Membranes Moist - Neck Exam Neck Exam: Full ROM - Respiratory Exam Respiratory Exam: Decreased Breath Sounds, NORMAL BREATHING PATTERN - Cardiovascular Exam Cardiovascular Exam: +S1, +S2 - GI/Abdominal Exam GI & Abdominal Exam: Soft, Normal Bowel Sounds - Extremities Exam Extremities Exam: Pedal Edema - Neurological Exam Neurological Exam: Awake - Psychiatric Exam Psychiatric exam: Flat Affect - Skin Skin Exam: Dry Objective - Vital Signs/Intake and Output Vital Signs (last 24 hours): Temp Pulse Resp BP Pulse Ox 97.4 F L 76 14 132/64 100 01/20/17 20:00 01/20/17 19:00 01/20/17 19:00 01/20/17 18:17 01/20/17 19:00 Intake and Output: 01/20/17 01/21/17 18:59 06:59 Intake Total 395 150 Output Total 50 0 Balance 345 150 - Medications Medications: Current Medications Albuterol Sulfate (Albuterol 0.083% Inhal Jeri (2.5 Mg/3 Ml) Ud) 2.5 mg INH RQ4 [facility] Last Admin: 01/20/17 20:57 Dose: Not Given Heparin Sodium (Porcine) (Heparin) 5,000 units SC Q12 [facility] Insulin Aspart (Novolog) 0 unit SC ACHS [facility] PRN Reason: Protocol Last Admin: 01/20/17 17:16 Dose: 3 unit Lisinopril (Zestril) 5 mg PO DAILY [facility] Last Admin: 01/20/17 10:09 Dose: 5 mg Pantoprazole Sodium (Protonix Inj) 40 mg IVP Q12 [facility] Last Admin: 01/20/17 10:09 Dose: 40 mg Potassium Chloride (K-Dur 20 Meq Er Tab) 40 meq PO DAILY [facility] Last Admin: 01/20/17 10:08 Dose: 40 meq Sucralfate (Carafate Oral Susp) 1 gm PO Q6 [facility] Last Admin: 01/20/17 17:16 Dose: 1 gm - Labs Labs: 01/20/17 06:49 01/20/17 06:49 PT 10.6 SECONDS (9.7-12.2) 01/13/17 18:26 INR 1.0 01/13/17 18:26 APTT 24 SECONDS (21-34) 01/13/17 18:26 Assessment and Plan - Assessment and Plan (Free Text) Assessment: CHF Diastolic with normal EF HX of A Fib. Guiac Positive stools -Anti coagulation held HTN -Continue Lisinopril 5mg -Hold parameters in place for hypotension DM ISS Accuchecks History of PE -Lovenox SC held due to bleeding from ET tube Hyperlipidemia -Patient would benefit from Crestor Prophylactic Measure -Venodynes -PPI 40 mg IV Q12
[2017-01-21] MEDS: Sucralfate 1 gm/10 ml Oral Susp UD PO SCH ×5 (00:40→18:35)
[2017-01-21] MEDS: Albuterol 0.083% Inhal Sol (2.5 mg/3 mL) UD INH SCH ×4 (03:24→16:52)
[2017-01-21 06:26] LABS: BASO % 0.1 % (0.0-2.0); EOS % 0.1 % (0.0-4.0); HEMATOCRIT 29.2 % (34.0-47.0); LYMPH # 0.1 K/uL (1.0-4.3); MEAN CELL VOLUME 93.7 fL (81.0-99.0); MEAN CORPUSCULAR HEMOGLOBIN 32.6 pg (27.0-31.0); MEAN CORPUSCULAR HGB CONC 34.8 g/dL (33.0-37.0); MEAN PLATELET VOLUME 8.8 fL (7.2-11.7); MONO # 0.1 K/uL (0.0-0.8); MONO % 2.4 % (0.0-10.0); NRBC % 4.4 % (0.0-2.0); PLATELET COUNT 268 K/uL (130-400); RED CELL DISTRIBUTION WIDTH 14.5 % (11.5-14.5)
[2017-01-21 06:46] LABS: CHLORIDE 104 mmol/L (98-107); SODIUM 138 mmol/L (132-148)
[2017-01-21 06:47] LABS: POTASSIUM 3.7 mmol/L (3.6-5.2)
[2017-01-21 06:49] LABS: ALB/GLOB RATIO 1.2 (1.0-2.1); AST/SGOT 19 U/L (14-36); BILIRUBIN,TOTAL 0.9 mg/dL (0.2-1.3); CARBON DIOXIDE 28 mmol/L (22-30); GFR AFRICAN-AMERICAN > 60; TOTAL PROTEIN 5.1 g/dL (6.3-8.3)
[2017-01-21 06:50] LABS: ALKALINE PHOSPHATASE 58 U/L (38-126); ALT/SGPT 52 U/L (9-52); BLOOD UREA NITROGEN 14 mg/dL (7-17); CALCIUM 8.3 mg/dl (8.6-10.4); GLUCOSE,RANDOM 209 mg/dL (65-105); MAGNESIUM 2.1 mg/dL (1.6-2.3)
[2017-01-21 08:29] LABS: NEUTROPHIL 94 % (50-75); TOTAL CELLS COUNTED 100
[2017-01-21] MEDS: (Novolog) Insulin Aspart, Recombinant 100 u/ml 10 ml vial SC SCH ×4 (09:23→17:20)
--- NOTE | 2017-01-21 10:48 | CP.PCM.PN ---
Subjective - Date & Time of Evaluation Date of Evaluation: 01/21/17 Time of Evaluation: 08:00 - Subjective Subjective: awake alert nad afebrile off antibiotics Objective - Vital Signs/Intake and Output Vital Signs (last 24 hours): Temp Pulse Resp BP Pulse Ox 98.1 F 97 H 14 151/86 H 100 01/21/17 04:00 01/21/17 08:33 01/21/17 08:33 01/21/17 08:33 01/21/17 08:33 Intake and Output: 01/21/17 01/21/17 06:59 18:59 Intake Total 310 80 Output Total 400 120 Balance -90 -40 - Medications Medications: Current Medications Albuterol Sulfate (Albuterol 0.083% Inhal Jeri (2.5 Mg/3 Ml) Ud) 2.5 mg INH RQ4 [facility] Last Admin: 01/21/17 08:04 Dose: 2.5 mg Heparin Sodium (Porcine) (Heparin) 5,000 units SC Q12 [facility] Last Admin: 01/20/17 22:21 Dose: 5,000 units Insulin Aspart (Novolog) 0 unit SC ACHS [facility] PRN Reason: Protocol Last Admin: 01/21/17 09:23 Dose: Not Given Lisinopril (Zestril) 5 mg PO DAILY [facility] Last Admin: 01/20/17 10:09 Dose: 5 mg Pantoprazole Sodium (Protonix Inj) 40 mg IVP Q12 [facility] Last Admin: 01/20/17 22:21 Dose: 40 mg Potassium Chloride (K-Dur 20 Meq Er Tab) 40 meq PO DAILY [facility] Last Admin: 01/20/17 10:08 Dose: 40 meq Sucralfate (Carafate Oral Susp) 1 gm PO Q6 [facility] Last Admin: 01/21/17 06:18 Dose: 1 gm - Labs Labs: 01/21/17 06:22 01/21/17 06:23 PT 10.6 SECONDS (9.7-12.2) 01/13/17 18:26 INR 1.0 01/13/17 18:26 APTT 24 SECONDS (21-34) 01/13/17 18:26 - Constitutional Appears: Non-toxic, Cachectic, Chronically Ill - Head Exam Head Exam: NORMOCEPHALIC - Eye Exam Eye Exam: PERRL. absent: Scleral icterus Pupil Exam: NORMAL ACCOMODATION - ENT Exam ENT Exam: Mucous Membranes Dry, Normal External Ear Exam - Neck Exam Neck Exam: absent: Lymphadenopathy - Respiratory Exam Respiratory Exam: Decreased Breath Sounds, Rhonchi - Cardiovascular Exam Cardiovascular Exam: REGULAR RHYTHM - GI/Abdominal Exam GI & Abdominal Exam: Distended, Soft - Rectal Exam Rectal Exam: Deferred - Exam Exam: NORMAL INSPECTION - Extremities Exam Extremities Exam: absent: Pedal Edema - Back Exam Back Exam: absent: CVA tenderness (L), CVA tenderness (R) - Neurological Exam Neurological Exam: Alert, Awake, CN II-XII Intact - Psychiatric Exam Psychiatric exam: Depressed - Skin Skin Exam: Dry Assessment and Plan (1) Sepsis Status: Acute (2) Altered mental status Status: Acute (3) Elevated BUN Status: Acute - Assessment and Plan (Free Text) Assessment: Admitted to ICU with resp failure from PNA, MS on vent now extubated on 4lit no bipap need in last 48 hrs off abx * Anemia this admission probably from gi loss, * History of MS currently started on pulse dose steroid by neurology empirically due to intermittent weakness * H/o PE, started on subq heparin for dvt prophylaxis pt has ivc filter * paraplegia form MS
--- NOTE | 2017-01-21 10:49 | CP.PCM.PN ---
<HaoMalathililiane - Last Filed: 01/21/17 16:04> Subjective - Date & Time of Evaluation Date of Evaluation: 01/21/17 Time of Evaluation: 09:10 - Subjective Subjective: Cardiology Progress note- Dr. Danielson's service Pt seen and examined in no acute distress. Patient feels tired. She admits to tolerating a diet. She denies complaints of chest pain, shortness of breath, nausea, vomiting or abdominal pain at this time. Objective - Vital Signs/Intake and Output Vital Signs (last 24 hours): Temp Pulse Resp BP Pulse Ox 98.1 F 97 H 14 151/86 H 100 01/21/17 04:00 01/21/17 08:33 01/21/17 08:33 01/21/17 08:33 01/21/17 08:33 Intake and Output: 01/21/17 01/21/17 06:59 18:59 Intake Total 310 80 Output Total 400 120 Balance -90 -40 - Medications Medications: Current Medications Albuterol Sulfate (Albuterol 0.083% Inhal Jeri (2.5 Mg/3 Ml) Ud) 2.5 mg INH RQ4 [facility] Last Admin: 01/21/17 08:04 Dose: 2.5 mg Heparin Sodium (Porcine) (Heparin) 5,000 units SC Q12 [facility] Last Admin: 01/20/17 22:21 Dose: 5,000 units Insulin Aspart (Novolog) 0 unit SC ACHS [facility] PRN Reason: Protocol Last Admin: 01/21/17 09:23 Dose: Not Given Lisinopril (Zestril) 5 mg PO DAILY [facility] Last Admin: 01/20/17 10:09 Dose: 5 mg Pantoprazole Sodium (Protonix Inj) 40 mg IVP Q12 [facility] Last Admin: 01/20/17 22:21 Dose: 40 mg Potassium Chloride (K-Dur 20 Meq Er Tab) 40 meq PO DAILY [facility] Last Admin: 01/20/17 10:08 Dose: 40 meq Sucralfate (Carafate Oral Susp) 1 gm PO Q6 [facility] Last Admin: 01/21/17 06:18 Dose: 1 gm - Labs Labs: 01/21/17 06:22 01/21/17 06:23 PT 10.6 SECONDS (9.7-12.2) 01/13/17 18:26 INR 1.0 01/13/17 18:26 APTT 24 SECONDS (21-34) 01/13/17 18:26 - Constitutional Appears: Non-toxic, No Acute Distress - Head Exam Head Exam: ATRAUMATIC, NORMAL INSPECTION, NORMOCEPHALIC - Eye Exam Eye Exam: EOMI, Normal appearance, PERRL Pupil Exam: NORMAL ACCOMODATION - ENT Exam ENT Exam: Mucous Membranes Moist - Neck Exam Neck Exam: Full ROM - Respiratory Exam Respiratory Exam: NORMAL BREATHING PATTERN. absent: Wheezes - Cardiovascular Exam Cardiovascular Exam: +S1, +S2 - GI/Abdominal Exam GI & Abdominal Exam: Soft, Normal Bowel Sounds - Extremities Exam Extremities Exam: Full ROM, Normal Capillary Refill. absent: Pedal Edema - Back Exam Back Exam: Full ROM - Neurological Exam Neurological Exam: Alert, Awake, Oriented x3 - Psychiatric Exam Psychiatric exam: Normal Affect, Normal Mood - Skin Skin Exam: Dry, Warm Assessment and Plan - Assessment and Plan (Free Text) Assessment: CHF -BNP 80572 -Echo: Normal EF, mild pulmonary hypertension -Monitor Daily weight and I&Os HTN -Continue Lisinopril 5mg -Hold parameters in place for hypotension DM ISS Accuchecks History of PE -On Heparin SC for DVT prophylaxis -Was previously on Lovenox but this was stopped due to prior bleeding from ET tube. Hyperlipidemia -Started on low dose Crestor 2.5 mg PO HS Hx of MS - Being managed by Neurology, Critical care and primary teams Prophylactic Measure -Heparin SC 5000U Q12 -PPI 40 mg IV Q12 Discussed with attending. Management and planning per Dr. Danielson <Florentino Danielson - Last Filed: 01/21/17 22:43> Objective - Vital Signs/Intake and Output Vital Signs (last 24 hours): Temp Pulse Resp BP Pulse Ox 97.6 F 90 14 166/99 H 100 01/21/17 11:50 01/21/17 17:00 01/21/17 17:00 01/21/17 18:34 01/21/17 17:00 Intake and Output: 01/21/17 01/22/17 18:59 06:59 Intake Total 1140 Output Total 670 Balance 470 - Labs Labs: 01/21/17 06:22 01/21/17 06:23 PT 10.6 SECONDS (9.7-12.2) 09/24/17 18:26 INR 1.0 01/13/17 18:26 APTT 24 SECONDS (21-34) 01/13/17 18:26 Assessment and Plan - Assessment and Plan (Free Text) Assessment: Patient seen and evaluated with the medical record clerk Plan of care as documented
[2017-01-21] MEDS: Potassium Chloride 20 mEq ER Tab PO SCH (10:57)
--- NOTE | 2017-01-21 11:08 | CP.PCM.PN ---
Subjective - Date & Time of Evaluation Date of Evaluation: 01/21/17 Time of Evaluation: 11:06 - Subjective Subjective: Patient is now extubated. She denies having nausea, vomiting, abdominal pain. She is unaware of having a bowel movement today. Objective - Vital Signs/Intake and Output Vital Signs (last 24 hours): Temp Pulse Resp BP Pulse Ox 98 F 97 H 14 151/86 H 100 01/21/17 08:00 01/21/17 08:33 01/21/17 08:33 01/21/17 08:33 01/21/17 08:33 Intake and Output: 01/21/17 01/21/17 06:59 18:59 Intake Total 310 80 Output Total 400 120 Balance -90 -40 - Medications Medications: Current Medications Albuterol Sulfate (Albuterol 0.083% Inhal Jeri (2.5 Mg/3 Ml) Ud) 2.5 mg INH RQ4 [facility] Last Admin: 01/21/17 08:04 Dose: 2.5 mg Heparin Sodium (Porcine) (Heparin) 5,000 units SC Q12 [facility] Last Admin: 01/20/17 22:21 Dose: 5,000 units Insulin Aspart (Novolog) 0 unit SC ACHS [facility] PRN Reason: Protocol Last Admin: 01/21/17 09:23 Dose: Not Given Lisinopril (Zestril) 5 mg PO DAILY [facility] Last Admin: 01/21/17 10:57 Dose: 5 mg Pantoprazole Sodium (Protonix Inj) 40 mg IVP Q12 [facility] Last Admin: 01/21/17 10:54 Dose: 40 mg Potassium Chloride (K-Dur 20 Meq Er Tab) 40 meq PO DAILY [facility] Last Admin: 01/21/17 10:57 Dose: 40 meq Sucralfate (Carafate Oral Susp) 1 gm PO Q6 [facility] Last Admin: 01/21/17 10:53 Dose: 1 gm - Labs Labs: 01/21/17 06:22 01/21/17 06:23 PT 10.6 SECONDS (9.7-12.2) 01/13/17 18:26 INR 1.0 01/13/17 18:26 APTT 24 SECONDS (21-34) 01/13/17 18:26 - Constitutional Appears: No Acute Distress - Head Exam Head Exam: ATRAUMATIC, NORMOCEPHALIC - Eye Exam Eye Exam: EOMI Pupil Exam: NORMAL ACCOMODATION - Neck Exam Neck Exam: absent: Lymphadenopathy, Thyromegaly - Respiratory Exam Respiratory Exam: NORMAL BREATHING PATTERN. absent: Rales, Rhonchi, Wheezes - Cardiovascular Exam Cardiovascular Exam: REGULAR RHYTHM, +S1, +S2. absent: Gallop, Rubs, Murmur - GI/Abdominal Exam GI & Abdominal Exam: Soft, Normal Bowel Sounds. absent: Tenderness, Mass, Organomegaly - Rectal Exam Rectal Exam: Deferred - Extremities Exam Extremities Exam: absent: Calf Tenderness, Pedal Edema Assessment and Plan (1) Anemia Assessment & Plan: The hemoglobin is stable at 10.2, but three stool specimens are positive for occult blood. Patient should have colonoscopy when stable. Status: Acute
--- NOTE | 2017-01-21 11:52 | CP.CCUPN ---
CCU Subjective - Physician Review Subjective (Free Text): Patient was seen and examined at bedside. Patient was alert, awake and communicating. Patient denies any pain and states that she is "fine" and has no compliants. CCU Objective - Vital Signs / Intake & Output Vital Signs (Last 4 hours): Vital Signs Temp Pulse Resp BP Pulse Ox 01/21/17 08:33 97 H 14 151/86 H 100 01/21/17 08:17 94 H 29 H 151/89 H 100 01/21/17 08:00 98 F 115 H 20 154/99 H 98 Intake and Output (Last 8hrs): Intake & Output 01/20/17 01/21/17 01/21/17 22:59 06:59 14:59 Intake Total 300 110 80 Output Total 50 400 120 Balance 250 -290 -40 Weight 134 lb 11.2 oz Intake: Intake, IV Amount 100 0 0 Right Medial Port PICC 100 0 0 Oral 200 110 80 Output: Urine 50 400 120 Urine, Voided 50 400 120 Other: # Bowel Movements 0 1 - Physical Exam Head: Positive for: Atraumatic, Normocephalic Extroacular Muscles: Positive for: EOMI Mouth: Positive for: Other (w/ dentures) Nose (External): Negative for: Abrasion, Contusion, Laceration Neck: Negative for: JVD, Lymphadenopathy Respiratory/Chest: Positive for: Rales. Negative for: Respiratory Distress, Accessory Muscle Use Cardiovascular: Positive for: Regular Rate and Rhythm, Normal S1, S2. Negative for: Murmurs, Tachycardic Abdomen: Positive for: Normal Bowel Sounds. Negative for: Tenderness, Distention Upper Extremity: Positive for: NORMAL PULSES. Negative for: Edema Lower Extremity: Positive for: NORMAL PULSES. Negative for: Edema Neurological: Negative for: Speech Normal Skin: Positive for: Warm, Normal Color Psychiatric: Positive for: Alert - Medications Active Medications: Active Medications Generic Name Dose Route Start Last Admin Trade Name Freq PRN Reason Stop Dose Admin Albuterol Sulfate 2.5 mg 01/13/17 16:00 01/21/17 08:04 Albuterol 0.083% Inhal Jeri (2.5 Mg/3 Ml) Ud INH 2.5 mg RQ4 RAUL Administration Heparin Sodium (Porcine) 5,000 units 01/20/17 22:00 01/20/17 22:21 Heparin SC 5,000 units Q12 RAUL Administration Insulin Aspart 0 unit 01/20/17 07:30 01/21/17 09:23 Novolog SC Not Given ACHS [facility] Protocol Lisinopril 5 mg 01/09/17 10:00 01/21/17 10:57 Zestril PO 5 mg DAILY RAUL Administration Pantoprazole Sodium 40 mg 01/16/17 10:45 01/21/17 10:54 Protonix Inj IVP 40 mg Q12 RAUL Administration Potassium Chloride 40 meq 01/20/17 10:00 01/21/17 10:57 K-Dur 20 Meq Er Tab PO 40 meq DAILY RAUL Administration Sucralfate 1 gm 01/16/17 10:45 01/21/17 10:53 Carafate Oral Susp PO 1 gm Q6 RAUL Administration - Patient Studies Lab Studies: Microbiology Studies 01/18/17 12:30 Blood Culture - Preliminary Blood-Venous NO GROWTH AFTER 48 HOURS 01/18/17 12:00 Blood Culture - Preliminary Blood-Venous NO GROWTH AFTER 48 HOURS Lab Studies 01/21/17 01/21/17 01/20/17 Range/Units 06:23 06:22 21:24 WBC 6.0 (4.8-10.8) K/uL RBC 3.12 L (3.80-5.20) Mil/uL Hgb 10.2 L (11.0-16.0) g/dL Hct 29.2 L (34.0-47.0) % MCV 93.7 (81.0-99.0) fL MCH 32.6 H (27.0-31.0) pg MCHC 34.8 (33.0-37.0) g/dL RDW 14.5 (11.5-14.5) % Plt Count 268 (130-400) K/uL MPV 8.8 (7.2-11.7) fL Neut % (Auto) 95.4 H (50.0-75.0) % Lymph % (Auto) 2.0 L (20.0-40.0) % [place] % (Auto) 2.4 (0.0-10.0) % Eos % (Auto) 0.1 (0.0-4.0) % Baso % (Auto) 0.1 (0.0-2.0) % Neut # 5.8 (1.8-7.0) K/uL Lymph # 0.1 L (1.0-4.3) K/uL [place] # 0.1 (0.0-0.8) K/uL Eos # 0.0 (0.0-0.7) K/uL Baso # 0.0 (0.0-0.2) K/uL Neutrophils % (Manual) 94 H (50-75) % Band Neutrophils % 1 (0-2) % Lymphocytes % (Manual) 2 L (20-40) % Monocytes % (Manual) 3 (0-10) % Platelet Estimate Normal (NORMAL) RBC Morphology Normal Sodium 138 (132-148) mmol/L Potassium 3.7 (3.6-5.2) mmol/L Chloride 104 (98-107) mmol/L Carbon Dioxide 28 (22-30) mmol/L Anion Gap 11 (10-20) BUN 14 (7-17) mg/dL Creatinine 0.5 L (0.7-1.2) MG/DL Est GFR ( Amer) > 60 Est GFR (Non-Af Amer) > 60 POC Glucose (mg/dL) 237 H (65-110) mg/dL Random Glucose 209 H (65-105) mg/dL Calcium 8.3 L (8.6-10.4) mg/dl Phosphorus 2.0 L (2.5-4.5) mg/dL Magnesium 2.1 (1.6-2.3) mg/dL Total Bilirubin 0.9 (0.2-1.3) mg/dL AST 19 (14-36) U/L ALT 52 (9-52) U/L Alkaline Phosphatase 58 (38-126) U/L Total Protein 5.1 L (6.3-8.3) g/dL Albumin 2.7 L (3.5-5.0) g/dL Globulin 2.3 (2.2-3.9) gm/dL Albumin/Globulin Ratio 1.2 (1.0-2.1) 01/20/17 Range/Units 17:05 WBC (4.8-10.8) K/uL RBC (3.80-5.20) Mil/uL Hgb (11.0-16.0) g/dL Hct (34.0-47.0) % MCV (81.0-99.0) fL MCH (27.0-31.0) pg MCHC (33.0-37.0) g/dL RDW (11.5-14.5) % Plt Count (130-400) K/uL MPV (7.2-11.7) fL Neut % (Auto) (50.0-75.0) % Lymph % (Auto) (20.0-40.0) % [place] % (Auto) (0.0-10.0) % Eos % (Auto) (0.0-4.0) % Baso % (Auto) (0.0-2.0) % Neut # (1.8-7.0) K/uL Lymph # (1.0-4.3) K/uL [place] # (0.0-0.8) K/uL Eos # (0.0-0.7) K/uL Baso # (0.0-0.2) K/uL Neutrophils % (Manual) (50-75) % Band Neutrophils % (0-2) % Lymphocytes % (Manual) (20-40) % Monocytes % (Manual) (0-10) % Platelet Estimate (NORMAL) RBC Morphology Sodium (132-148) mmol/L Potassium (3.6-5.2) mmol/L Chloride (98-107) mmol/L Carbon Dioxide (22-30) mmol/L Anion Gap (10-20) BUN (7-17) mg/dL Creatinine (0.7-1.2) MG/DL Est GFR ( Amer) Est GFR (Non-Af Amer) POC Glucose (mg/dL) 289 H (65-110) mg/dL Random Glucose (65-105) mg/dL Calcium (8.6-10.4) mg/dl Phosphorus (2.5-4.5) mg/dL Magnesium (1.6-2.3) mg/dL Total Bilirubin (0.2-1.3) mg/dL AST (14-36) U/L ALT (9-52) U/L Alkaline Phosphatase (38-126) U/L Total Protein (6.3-8.3) g/dL Albumin (3.5-5.0) g/dL Globulin (2.2-3.9) gm/dL Albumin/Globulin Ratio (1.0-2.1) Laboratory Results - last 24 hr 01/20/17 01/20/17 01/21/17 17:05 21:24 06:22 WBC 6.0 RBC 3.12 L Hgb 10.2 L Hct 29.2 L MCV 93.7 MCH 32.6 H MCHC 34.8 RDW 14.5 Plt Count 268 MPV 8.8 Neut % (Auto) 95.4 H Lymph % (Auto) 2.0 L [place] % (Auto) 2.4 Eos % (Auto) 0.1 Baso % (Auto) 0.1 Neut # 5.8 Lymph # 0.1 L [place] # 0.1 Eos # 0.0 Baso # 0.0 Neutrophils % (Manual) 94 H Band Neutrophils % 1 Lymphocytes % (Manual) 2 L Monocytes % (Manual) 3 Platelet Estimate Normal RBC Morphology Normal Sodium Potassium Chloride Carbon Dioxide Anion Gap BUN Creatinine Est GFR ( Amer) Est GFR (Non-Af Amer) POC Glucose (mg/dL) 289 H 237 H Random Glucose Calcium Phosphorus Magnesium Total Bilirubin AST ALT Alkaline Phosphatase Total Protein Albumin Globulin Albumin/Globulin Ratio 01/21/17 06:23 WBC RBC Hgb Hct MCV MCH MCHC RDW Plt Count MPV Neut % (Auto) Lymph % (Auto) [place] % (Auto) Eos % (Auto) Baso % (Auto) Neut # Lymph # [place] # Eos # Baso # Neutrophils % (Manual) Band Neutrophils % Lymphocytes % (Manual) Monocytes % (Manual) Platelet Estimate RBC Morphology Sodium 138 Potassium 3.7 Chloride 104 Carbon Dioxide 28 Anion Gap 11 BUN 14 Creatinine 0.5 L Est GFR ( Amer) > 60 Est GFR (Non-Af Amer) > 60 POC Glucose (mg/dL) Random Glucose 209 H Calcium 8.3 L Phosphorus 2.0 L Magnesium 2.1 Total Bilirubin 0.9 AST 19 ALT 52 Alkaline Phosphatase 58 Total Protein 5.1 L Albumin 2.7 L Globulin 2.3 Albumin/Globulin Ratio 1.2 Fingerstick Blood Sugar Results: 200 Review of Systems - Constitutional Constitutional: absent: Fever, Chills, Weakness - EENT Eyes: absent: Change in Vision Ears: absent: Dizziness - Cardiovascular Cardiovascular: absent: Chest Pain, Diaphoresis, Dyspnea, Palpitations, Radiating Pain - Respiratory Respiratory: absent: Dyspnea, Wheezing - Gastrointestinal Gastrointestinal: absent: Abdominal Pain, Cramping, Diarrhea, Nausea, Vomiting - Musculoskeletal Musculoskeletal: absent: Muscle Cramps, Muscle Weakness, Numbness, Tingling - Neurological Neurological: absent: Dizziness, Headaches, Tingling, Weakness - Psychiatric Psychiatric: Irritability - Endocrine Endocrine: absent: Excessive Sweating, Palpitations Critical Care Progress Note - Nutrition Nutrition: Nutrition Category Date Time Status Dysphagia/Modified Consistency Diet [DIET] Diets 01/18/17 Lunch Active Assessment/Plan - Assessment and Plan (Free Text) Assessment: Patient is a 76 y/o female with past medical history Anemia, Anxiety, Arthritis , Cardiac Arrhythmia, COPD, Depression, HTN, Hyperlipidemia, Multiple Sclerosis , Osteoporosis, Peripheral Edema, Pulmonary Embolism, Chronic Kidney Disease, Rheumatoid Arthritis, A.fibrillation, presented with dyspnea and sepsis Today: Plan: Patient downgraded to medical surgery floor Plan: Downgraded to medical surgical floor Pulm: Hypercapnic respiratory failure * Intubated on 01/08/17; ET tube was advanced into the airway 1-2cm (01/15/17), Extubated (01/17/17), and placed on pressure support * Pressure support tolerated well overnight and now maintained on 4L nasal cannula Chest X-ray (01/14/17): Lines and tubes in stable position. Moderate right pleural effusion. Confluent airspace consolidation within the right mid to lower lung zone. Prominent diffuse increased interstitial lung markings. Biapical pleural thickening with upper lobe granulomatous changes. CT chest (01/16/17): No evidence of PE (01/15/17) Cipap trial yesterday: Oxygen saturation at 88, therefore patient was not extubated. (01/16/17) Cipap trial was started today at 10:30am and patient has been tolerable with an oxygen saturation of 95%. We continue to monitor on CiPap (: Cipap trial continued today, tolerated and subsequently, patient was extubated as 16:52, and was placed on a venturi mask. Medications: Duonebs 2.5mg RQ4 Cardio: Diastolic heart failure * On admission, BNP: 18,200 Echo(01/08/17): Normal LV systolic HTN: Lisinopril 5mg PO daily GI: Transaminitis * Resolved Renal: * BUN elevated, Normal Cr ( Resolved) * Continue to monitor urine output : [place] d/c today (01/18/17) Heme: GI Consult, Dr. Farris * H/H: stable s/p transfusion of 1 unit of PRBC (01/17/17) * Stool Occult: Positive 3x, As per GI, recommendation for colonoscopy when clinical stability is achieve Endoscopy (01/17/17): A single 3mm sessile polyp in the gastric fundus and patchy minimal inflammation with erythema in the gastric antrum. No gross lesion in the 2nd part of the duodenum Continue to monitor ID: Dr. Lind on board---> Help appreciated PICC line inserted and IJ removed (01/17/17) * Septic on admission: Lactate of 1.1--->1.9 with bands of 40 (Resolved) * Blood Cultures: Coagulase (-) staphylococcus (01/07/17), f/u repeat blood culture (01/18/17): No growth * Urine culture: negative * Sputum gram stain : Yeast species All antibiotics discontinued as per PMD Neuro: * Alert, responds to verbal stimuli * Negative swallow evaluation (01/18/17) History of Multiple sclerosis: consulted for management ---> Help appreciated * As per neurology, recommendation for brain, cervical and thoracic MRI w/wo contrast; Patient refused MRI testing Prophylaxis: * GI: Protonix 40mg IV daily, Sucralfate 30ml Soln Q6H * DVT: SCDs, Heparin 5,000 units SC Q12H * PT/OT * Downgraded to medical surgery floor
--- NOTE | 2017-01-21 12:45 | CP.PCM.PN ---
Subjective - Date & Time of Evaluation Date of Evaluation: 01/21/17 Time of Evaluation: 12:43 - Subjective Subjective: Ms. Chavarria was seen and examined at the bedside responsive to all stimuli. She is uncooperative to any request. She is not in any kind of distress. There is no untoward events overnight. Objective - Vital Signs/Intake and Output Vital Signs (last 24 hours): Temp Pulse Resp BP Pulse Ox 98 F 97 H 14 151/86 H 100 01/21/17 08:00 01/21/17 08:33 01/21/17 08:33 01/21/17 08:33 01/21/17 08:33 Intake and Output: 01/21/17 01/21/17 06:59 18:59 Intake Total 310 80 Output Total 400 120 Balance -90 -40 - Medications Medications: Current Medications Albuterol Sulfate (Albuterol 0.083% Inhal Jeri (2.5 Mg/3 Ml) Ud) 2.5 mg INH RQ4 [facility] Last Admin: 01/21/17 12:12 Dose: Not Given Heparin Sodium (Porcine) (Heparin) 5,000 units SC Q12 [facility] Last Admin: 01/20/17 22:21 Dose: 5,000 units Insulin Aspart (Novolog) 0 unit SC ACHS [facility] PRN Reason: Protocol Last Admin: 01/21/17 09:23 Dose: Not Given Lisinopril (Zestril) 5 mg PO DAILY [facility] Last Admin: 01/21/17 10:57 Dose: 5 mg Pantoprazole Sodium (Protonix Inj) 40 mg IVP Q12 [facility] Last Admin: 01/21/17 10:54 Dose: 40 mg Potassium Chloride (K-Dur 20 Meq Er Tab) 40 meq PO DAILY [facility] Last Admin: 01/21/17 10:57 Dose: 40 meq Sucralfate (Carafate Oral Susp) 1 gm PO Q6 [facility] Last Admin: 01/21/17 10:53 Dose: 1 gm - Labs Labs: 01/21/17 06:22 01/21/17 06:23 PT 10.6 SECONDS (9.7-12.2) 01/13/17 18:26 INR 1.0 01/13/17 18:26 APTT 24 SECONDS (21-34) 01/13/17 18:26 - Constitutional Appears: No Acute Distress - Head Exam Head Exam: ATRAUMATIC, NORMAL INSPECTION, NORMOCEPHALIC - Neurological Exam Neurological Exam: Awake Neuro motor strength exam: Left Upper Extremity: 4, Right Upper Extremity: 4, Left Lower Extremity: 4, Right Lower Extremity: 4 Additional comments: She is uncooperative to assessmnet but moves extremities without any problem Assessment and Plan (1) Multiple sclerosis Assessment & Plan: Case discussed with Dr. Gregory, will taper her Solumedrol at 20 mg PO BID for 1 week, then Solumedrol 10 mg PO BID for 1 week, then Solumedrol 5 mg PO BID for 1 week, then Solumedrol 5 mg PO Daily then discontinue. There is no further recommendation from neurology . Status: Chronic
[2017-01-21 13:03] VITALS: TEMP 97.6
[2017-01-21 17:22] VITALS: PULSE 90; RESP 14; O2SAT 100
--- NOTE | 2017-01-21 17:49 | CP.PCM.CON ---
History of Present Illness - History of Present Illness History of Present Illness: 76 year old female seen in ICU for nail consult. Patient states that her nails are too long, painful and bother her. Patient see wearing multipodus boots. Patient denies any further pedal complaints at this time. Review of Systems - Review of Systems Review of Systems: ROS unremarkable outside of HPI Past Patient History - Infectious Disease Hx of Infectious Diseases: None - Tetanus Immunizations Tetanus Immunization: Up to Date - Past Medical History & Family History Past Medical History?: Yes - Past Social History Smoking Status: Never Smoked - CARDIAC Hx Cardiac Disorders: Yes (Cardia Arrhythmia) Hx Hypertension: Yes - PULMONARY Hx Chronic Obstructive Pulmonary Disease (COPD): Yes - NEUROLOGICAL Hx Multiple Sclerosis: Yes - HEENT Hx HEENT Problems: Yes Hx Blind: No Hx Cataracts: Yes Hx Difficulty Chewing: No Hx Epistaxis: No Hx Glaucoma: No Hx Macular Degeneration: No Other/Comment: wears eyeglasses for reading - RENAL Hx Chronic Kidney Disease: Yes - ENDOCRINE/METABOLIC Hx Hypothyroidism: No - HEMATOLOGICAL/ONCOLOGICAL Hx Anemia: Yes - INTEGUMENTARY Hx Dermatological Problems: Yes Hx Eczema: Yes Hx Melanoma: No Hx Psoriasis: No Hx Squamous Cell: No Other/Comment: > hx of garvin hong syndrome, unknown precipitant. > hx of bullous pemphigoid - MUSCULOSKELETAL/RHEUMATOLOGICAL Hx Arthritis: Yes Hx Rheumatoid Arthritis: Yes - GASTROINTESTINAL Hx Gastrointestinal Disorders: Yes Hx Constipation: Yes - GENITOURINARY/GYNECOLOGICAL Other/Comment: wears a diaper in the assisted (as with all patients) - PSYCHIATRIC Hx Anxiety: Yes Hx Depression: Yes Hx Substance Use: No - SURGICAL HISTORY Hx Surgeries: Yes Other/Comment: IVC filter 5-6 years ago for b/l DVT - ANESTHESIA Hx Anesthesia: Yes Hx Anesthesia Reactions: No Hx Malignant Hyperthermia: No Meds Allergies/Adverse Reactions: Allergies Allergy/AdvReac Type Severity Reaction Status Date / Time ascorbic acid Allergy Severe ANAPHYLAXIS Verified 01/07/17 09:45 aspirin Allergy RASH Verified 01/07/17 09:45 iodine Allergy RASH Verified 01/07/17 09:45 Ponds cream Allergy Severe ANAPHYLAXIS Uncoded 05/07/16 00:13 - Medications Medications: Current Medications Albuterol Sulfate (Albuterol 0.083% Inhal Jeri (2.5 Mg/3 Ml) Ud) 2.5 mg INH RQ4 RAUL Last Admin: 01/21/17 16:52 Dose: Not Given Heparin Sodium (Porcine) (Heparin) 5,000 units SC Q12 [facility] Last Admin: 01/21/17 16:59 Dose: Not Given Insulin Aspart (Novolog) 0 unit SC ACHS [facility] PRN Reason: Protocol Last Admin: 01/21/17 17:20 Dose: 3 unit Lisinopril (Zestril) 5 mg PO DAILY [facility] Last Admin: 01/21/17 10:57 Dose: 5 mg Pantoprazole Sodium (Protonix Inj) 40 mg IVP Q12 [facility] Last Admin: 01/21/17 10:54 Dose: 40 mg Potassium Chloride (K-Dur 20 Meq Er Tab) 40 meq PO DAILY [facility] Last Admin: 01/21/17 10:57 Dose: 40 meq Prednisone (Prednisone Tab) 20 mg PO BID [facility] Stop: 01/28/17 18:01 Last Admin: 01/21/17 17:14 Dose: 20 mg Rosuvastatin Calcium (Crestor) 2.5 mg PO HS [facility] Sucralfate (Carafate Oral Susp) 1 gm PO Q6 [facility] Last Admin: 01/21/17 16:58 Dose: Not Given Physical Exam - Constitutional Appears: Well, Non-toxic, No Acute Distress - Extremities Exam Additional comments: LE focused exam: Vasc: DP/PT pulses palpable b/l Neuro: Epicritic and protective sensation grossly intact Derm: Elongated, dystrophic nails noted 1-5 b/l - Neurological Exam Neurological exam: Alert, Oriented x3 - Psychiatric Exam Psychiatric exam: Normal Affect, Normal Mood Results - Vital Signs Recent Vital Signs: Last Vital Signs Temp 97.6 F 01/21/17 11:50 Pulse 90 01/21/17 17:00 Resp 14 01/21/17 17:00 BP 165/91 H 01/21/17 16:17 Pulse Ox 100 01/21/17 17:00 - Labs Result Diagrams: 01/21/17 06:22 01/21/17 06:23 Labs: Laboratory Results - last 24 hr 01/20/17 01/21/17 01/21/17 21:24 06:22 06:23 WBC 6.0 RBC 3.12 L Hgb 10.2 L Hct 29.2 L MCV 93.7 MCH 32.6 H MCHC 34.8 RDW 14.5 Plt Count 268 MPV 8.8 Neut % (Auto) 95.4 H Lymph % (Auto) 2.0 L [place] % (Auto) 2.4 Eos % (Auto) 0.1 Baso % (Auto) 0.1 Neut # 5.8 Lymph # 0.1 L [place] # 0.1 Eos # 0.0 Baso # 0.0 Neutrophils % (Manual) 94 H Band Neutrophils % 1 Lymphocytes % (Manual) 2 L Monocytes % (Manual) 3 Platelet Estimate Normal RBC Morphology Normal Sodium 138 Potassium 3.7 Chloride 104 Carbon Dioxide 28 Anion Gap 11 BUN 14 Creatinine 0.5 L Est GFR ( Amer) > 60 Est GFR (Non-Af Amer) > 60 POC Glucose (mg/dL) 237 H Random Glucose 209 H Calcium 8.3 L Phosphorus 2.0 L Magnesium 2.1 Total Bilirubin 0.9 AST 19 ALT 52 Alkaline Phosphatase 58 Total Protein 5.1 L Albumin 2.7 L Globulin 2.3 Albumin/Globulin Ratio 1.2 01/21/17 01/21/17 12:29 16:07 WBC RBC Hgb Hct MCV MCH MCHC RDW Plt Count MPV Neut % (Auto) Lymph % (Auto) [place] % (Auto) Eos % (Auto) Baso % (Auto) Neut # Lymph # [place] # Eos # Baso # Neutrophils % (Manual) Band Neutrophils % Lymphocytes % (Manual) Monocytes % (Manual) Platelet Estimate RBC Morphology Sodium Potassium Chloride Carbon Dioxide Anion Gap BUN Creatinine Est GFR ( Amer) Est GFR (Non-Af Amer) POC Glucose (mg/dL) 303 H 282 H Random Glucose Calcium Phosphorus Magnesium Total Bilirubin AST ALT Alkaline Phosphatase Total Protein Albumin Globulin Albumin/Globulin Ratio Assessment & Plan - Assessment and Plan (Free Text) Assessment: 76 year old female seen in ICU for elongated toe nails Plan: Patient seen at bedside with attending Dr. Shepard Nails 1-5 debrided b/l to appropriate length using a nail nipper without incident Patient to continue wearing multipodus boots Podiatry will sign off at this time Thank you for consult - Date & Time Date: 01/21/17 Time: 12:00
[2017-01-21 18:35] VITALS: BP 166/99
[2017-01-21] MEDS ORDERED: Rosuvastatin Calcium 2.5 mg Tab PO SCH (22:00)
--- NOTE | 2017-01-25 00:58 | CP.PCM.PN ---
Subjective - Date & Time of Evaluation Date of Evaluation: 01/19/17 Time of Evaluation: 18:00 - Subjective Subjective: Pt's status reviewed today, noted that very high dose methylprednisolone had been started last night, and this is pt's 2nd day on the steroid. Asked pt if she was aware of this, and pt denied it (though pt's memory has not been the best lately). Pt appeared to be not in any distress, no complaints. Discussed these developments with [employer] Mechanic on duty today and he , also, was not aware of this. Requested that any major decisions concerning my patients that I be consulted and that from now on, my patients are off-limits to residents writing orders without consultation with me. Objective - Vital Signs/Intake and Output Vital Signs (last 24 hours): Temp Pulse Resp BP Pulse Ox 97.6 F 90 14 166/99 H 100 01/21/17 11:50 01/21/17 17:00 01/21/17 17:00 01/21/17 18:34 01/21/17 17:00 - Labs Labs: 01/21/17 06:22 01/21/17 06:23 PT 10.6 SECONDS (9.7-12.2) 01/13/17 18:26 INR 1.0 01/13/17 18:26 APTT 24 SECONDS (21-34) 01/13/17 18:26 - Constitutional Appears: No Acute Distress - Head Exam Head Exam: NORMAL INSPECTION, NORMOCEPHALIC Additional comments: extubated - Eye Exam Eye Exam: Normal appearance - ENT Exam ENT Exam: Normal Exam - Neck Exam Neck Exam: Full ROM - Respiratory Exam Respiratory Exam: Decreased Breath Sounds, Clear to Ausculation Bilateral - Cardiovascular Exam Cardiovascular Exam: REGULAR RHYTHM - GI/Abdominal Exam GI & Abdominal Exam: Normal Bowel Sounds - Rectal Exam Rectal Exam: Deferred - Extremities Exam Extremities Exam: Normal Inspection - Back Exam Back Exam: NORMAL INSPECTION - Neurological Exam Neurological Exam: Alert, Awake Additional comments: unable to walk (pt's baseline) - Psychiatric Exam Psychiatric exam: Normal Affect, Normal Mood - Skin Skin Exam: Dry, Intact, Normal Color, Warm Assessment and Plan (1) Anemia Assessment & Plan: had dropped over several days and stool occult blood + when pt finally passed stool. GI consult obtained) Status: Acute (2) Occult blood in stools Assessment & Plan: as above Status: Acute (3) Physical debility Assessment & Plan: extensive PT to rehabilitate patient Status: Chronic (4) Multiple sclerosis Assessment & Plan: no exacerbation and no pain per pt. Status: Chronic
--- NOTE | 2017-01-25 03:02 | CP.PCM.DIS ---
Provider - Provider Date of Admission: 01/07/17 13:44 Attending physician: Sascha Dumont MD Primary care physician: Sascha Dumont MD Time Spent in preparation of Discharge (in minutes): 30 Diagnosis - Discharge Diagnosis (1) HCAP (healthcare-associated pneumonia) Status: Resolved Priority: High Comment: resolved (2) Secondary hypophosphatemia Status: Acute (3) Metabolic acidosis Status: Resolved Priority: High Comment: recorded and resolved (4) Anemia Status: Acute Priority: Medium (5) Hypokalemia Status: Acute (6) Sepsis Status: Acute (7) Multiple sclerosis Status: Chronic Priority: Low (8) Physical debility Status: Chronic Priority: Medium Hospital Course - Lab Results Lab Results: Micro Results 01/18/17 12:30 Blood-Venous Blood Culture - Final NO GROWTH AFTER 5 DAYS 01/18/17 12:30 Blood-Venous Gram Stain - Final TEST NOT PERFORMED 01/18/17 12:00 Blood-Venous Blood Culture - Final NO GROWTH AFTER 5 DAYS 01/18/17 12:00 Blood-Venous Gram Stain - Final TEST NOT PERFORMED 01/13/17 15:30 Blood-Venous Blood Culture - Final NO GROWTH AFTER 5 DAYS 01/13/17 15:30 Blood-Venous Gram Stain - Final TEST NOT PERFORMED 01/13/17 16:00 Blood-Venous Blood Culture - Final NO GROWTH AFTER 5 DAYS 01/13/17 16:00 Blood-Venous Gram Stain - Final TEST NOT PERFORMED 01/07/17 23:00 Blood-Venous Blood Culture - Final NO GROWTH AFTER 5 DAYS 01/07/17 23:00 Blood-Venous Gram Stain - Final TEST NOT PERFORMED 01/07/17 10:00 Blood Blood Culture - Final NO GROWTH AFTER 5 DAYS 01/07/17 10:00 Blood Gram Stain - Final TEST NOT PERFORMED 01/10/17 19:51 Sputum Gram Stain - Final 01/10/17 19:51 Sputum Sputum Culture - Final Yeast Species 01/07/17 22:30 Blood-Venous S.aureus & Coag-Neg Staph PNA FISH - Final 01/07/17 22:30 Blood-Venous Blood Culture - Final Staphylococcus Sp Coag Neg 01/07/17 22:30 Blood-Venous Gram Stain - Final 01/07/17 10:30 Blood Blood Culture - Final Coagulase Neg Staphylococcus 01/07/17 10:30 Blood Gram Stain - Final 01/07/17 18:52 Naris MRSA Culture (Admit) - Final MRSA NOT DETECTED 01/07/17 Unknown Urine Urine Culture - Final No Growth (<1,000 CFU/ML) Most Recent Lab Values WBC 6.0 K/uL (4.8-10.8) 01/21/17 06:22 RBC 3.12 Mil/uL (3.80-5.20) L 01/21/17 06:22 Hgb 10.2 g/dL (11.0-16.0) L 01/21/17 06:22 Hct 29.2 % (34.0-47.0) L 01/21/17 06:22 MCV 93.7 fL (81.0-99.0) 01/21/17 06:22 MCH 32.6 pg (27.0-31.0) H 01/21/17 06:22 MCHC 34.8 g/dL (33.0-37.0) 01/21/17 06:22 RDW 14.5 % (11.5-14.5) 01/21/17 06:22 Plt Count 268 K/uL (130-400) 01/21/17 06:22 MPV 8.8 fL (7.2-11.7) 01/21/17 06:22 Neut % (Auto) 95.4 % (50.0-75.0) H 01/21/17 06:22 Lymph % (Auto) 2.0 % (20.0-40.0) L 01/21/17 06:22 [place] % (Auto) 2.4 % (0.0-10.0) 01/21/17 06:22 Eos % (Auto) 0.1 % (0.0-4.0) 01/21/17 06:22 Baso % (Auto) 0.1 % (0.0-2.0) 01/21/17 06:22 Neut # 5.8 K/uL (1.8-7.0) 01/21/17 06:22 Lymph # 0.1 K/uL (1.0-4.3) L 01/21/17 06:22 [place] # 0.1 K/uL (0.0-0.8) 01/21/17 06:22 Eos # 0.0 K/uL (0.0-0.7) 01/21/17 06:22 Baso # 0.0 K/uL (0.0-0.2) 01/21/17 06:22 Neutrophils % (Manual) 94 % (50-75) H 01/21/17 06:22 Band Neutrophils % 1 % (0-2) 01/21/17 06:22 Lymphocytes % (Manual) 2 % (20-40) L 01/21/17 06:22 Monocytes % (Manual) 3 % (0-10) 01/21/17 06:22 Eosinophils % (Manual) 2 % (0-4) 01/20/17 06:49 Metamyelocytes % 1 % (0-0) H 01/19/17 06:41 Myelocytes % 1 % (0-0) H 01/18/17 06:24 Plasma Cell % (Manual) 1 (0-0) H 01/08/17 06:19 Nucleated RBC % 2 % (0-0) H 01/20/17 06:49 Differential Comment 01/17/17 06:19 Toxic Granulation Present 01/13/17 06:02 Platelet Estimate Normal (NORMAL) 01/21/17 06:22 Plt Clumps, EDTA Present 01/20/17 06:49 Large Platelets Present 01/20/17 06:49 RBC Morphology Normal 01/21/17 06:22 Polychromasia Slight 01/20/17 06:49 Hypochromasia (manual) Slight 01/16/17 06:08 Poikilocytosis (manual Slight 01/20/17 06:49 Basophilic Stippling Slight 01/20/17 06:49 Anisocytosis (manual) Slight 01/20/17 06:49 Microcytosis (manual) Slight 01/20/17 06:49 Macrocytosis (manual) Slight 01/20/17 06:49 Target Cells Slight 01/11/17 06:26 Tear Drop Cells Slight 01/20/17 06:49 Ovalocytes Slight 01/20/17 06:49 Schistocytes Slight 01/19/17 06:41 Retic Count 2.7 % (0.5-1.5) H 01/16/17 18:13 Haptoglobin 354 mg/dL (43-212) H 01/16/17 18:13 PT 10.6 SECONDS (9.7-12.2) 01/13/17 18:26 INR 1.0 09/24/17 18:26 APTT 24 SECONDS (21-34) 01/13/17 18:26 Puncture Site Rr 01/18/17 06:40 pCO2 38 mm/Hg (35-45) 01/18/17 06:40 pO2 164 mm/Hg (80-100) H 01/18/17 06:40 HCO3 24.6 mmol/L (21-28) 01/18/17 06:40 ABG pH 7.41 (7.35-7.45) 01/18/17 06:40 ABG Total CO2 25.3 mmol/L (22-28) 01/18/17 06:40 ABG O2 Saturation 99.4 % (95-98) H 01/18/17 06:40 ABG Base Excess -0.4 mmol/L (-2.0-3.0) 01/18/17 06:40 ABG Hemoglobin 9.8 g/dL (11.7-17.4) L 01/18/17 06:40 ABG Carboxyhemoglobin 1.4 % (0.5-1.5) 01/18/17 06:40 POC ABG HHb (Measured) 0.6 % (0.0-5.0) 01/18/17 06:40 ABG Methemoglobin 1.1 % (0.0-3.0) 01/18/17 06:40 Jose Maria Test Pos 01/18/17 06:40 ABG Potassium 3.4 mmol/L (3.6-5.2) L 01/13/17 20:15 VBG pH 7.23 (7.32-7.43) L 01/07/17 10:05 VBG pCO2 70 mmHg (40-60) H* 01/07/17 10:05 VBG HCO3 24.5 mmol/L 01/07/17 10:05 VBG Total CO2 31.4 mmol/L (22-28) H 01/07/17 10:05 VBG O2 Sat (Calc) 90.7 % (40-65) H 01/07/17 10:05 VBG Base Excess -0.1 mmol/L (0.0-2.0) L 01/07/17 10:05 VBG Potassium 6.0 mmol/L (3.6-5.2) H 01/07/17 10:05 A-a O2 Difference 359.0 mm/Hg 01/18/17 06:40 Respiratory Index 2.2 01/18/17 06:40 Hgb O2 Saturation 96.9 % (95.0-98.0) 01/18/17 06:40 Sodium 141.0 mmol/l (132-148) 01/13/17 20:15 Chloride 109.0 mmol/L (98-107) H 01/13/17 20:15 Glucose 233 mg/dl (65-105) H 01/13/17 20:15 Lactate 3.6 mmol/L (0.7-2.1) H 01/13/17 20:15 Vent Mode Bipap 01/18/17 06:40 Mechanical Rate 14 01/17/17 05:33 FiO2 80.0 % 01/18/17 06:40 Tidal Volume 450 01/17/17 05:33 PEEP 5 01/17/17 05:33 Inspiratory BiPAP 12 01/18/17 06:40 Expiratory BiPAP 6 01/18/17 06:40 Crit Value Called To Dr harpreet kincaid 01/13/17 16:45 Crit Value Called By Jessica philippe 01/13/17 16:45 Crit Value Read Back Y 01/13/17 16:45 Blood Gas Notified Time 1651 01/13/17 16:45 Sodium 138 mmol/L (132-148) 01/21/17 06:23 Potassium 3.7 mmol/L (3.6-5.2) 01/21/17 06:23 Chloride 104 mmol/L (98-107) 01/21/17 06:23 Carbon Dioxide 28 mmol/L (22-30) 01/21/17 06:23 Anion Gap 11 (10-20) 01/21/17 06:23 BUN 14 mg/dL (7-17) 01/21/17 06:23 Creatinine 0.5 MG/DL (0.7-1.2) L 01/21/17 06:23 Est GFR ( Amer) > 60 01/21/17 06:23 Est GFR (Non-Af Amer) > 60 01/21/17 06:23 POC Glucose (mg/dL) 282 mg/dL (65-110) H 01/21/17 16:07 Random Glucose 209 mg/dL (65-105) H 01/21/17 06:23 Lactic Acid 3.2 mmol/L (0.7-2.1) H 01/13/17 18:26 Calcium 8.3 mg/dl (8.6-10.4) L 01/21/17 06:23 Phosphorus 2.0 mg/dL (2.5-4.5) L 01/21/17 06:23 Magnesium 2.1 mg/dL (1.6-2.3) 01/21/17 06:23 Iron 63 ug/dL (37-170) 01/16/17 18:13 TIBC 265 ug/dL (250-450) 01/16/17 18:13 % Saturation 24 (20-55) 01/16/17 18:13 Ferritin 270.0 ng/mL 01/16/17 18:13 Total Bilirubin 0.9 mg/dL (0.2-1.3) 01/21/17 06:23 AST 19 U/L (14-36) 01/21/17 06:23 ALT 52 U/L (9-52) 01/21/17 06:23 Alkaline Phosphatase 58 U/L (38-126) 01/21/17 06:23 Lactate Dehydrogenase 847 U/L (313-618) H 01/16/17 18:13 Troponin I 0.0600 ng/mL (0.00-0.120) 01/08/17 06:19 NT-Pro-B Natriuret Pep 2420 pg/mL (0-900) H 01/13/17 06:02 Total Protein 5.1 g/dL (6.3-8.3) L 01/21/17 06:23 Albumin 2.7 g/dL (3.5-5.0) L 01/21/17 06:23 Globulin 2.3 gm/dL (2.2-3.9) 01/21/17 06:23 Albumin/Globulin Ratio 1.2 (1.0-2.1) 01/21/17 06:23 Vitamin B12 963 pg/mL (239-931) H 01/16/17 18:13 Folate 13.8 ng/mL 01/16/17 18:13 Arterial Blood Potassium 3.4 mmol/L (3.6-5.2) L 01/13/17 20:15 Venous Blood Potassium 6.0 mmol/L (3.6-5.2) H 01/07/17 10:05 Urine Color Johanne (YELLOW) 01/07/17 12:56 Urine Clarity Hazy (Clear) 01/07/17 12:56 Urine pH 5.0 (5.0-8.0) 01/07/17 12:56 Ur Specific [place] 1.021 (1.003-1.030) 01/07/17 12:56 Urine Protein 1+ mg/dL (NEGATIVE) H 01/07/17 12:56 Urine Glucose (UA) Normal mg/dL (Normal) 01/07/17 12:56 Urine Ketones Negative mg/dL (NEGATIVE) 01/07/17 12:56 Urine Blood 1+ (NEGATIVE) H 01/07/17 12:56 Urine Nitrate Negative (NEGATIVE) 01/07/17 12:56 Urine Bilirubin Negative (NEGATIVE) 01/07/17 12:56 Urine Urobilinogen 4.0 mg/dL (0.2-1.0) H 01/07/17 12:56 Ur Leukocyte Esterase Neg Tisha/uL (Negative) 01/07/17 12:56 Urine WBC (Auto) 4 /hpf (0-5) 01/07/17 12:56 Urine RBC (Auto) 2 /hpf (0-3) 01/07/17 12:56 Ur Squamous Epith Cells < 1 /hpf (0-5) 01/07/17 12:56 Hyaline Casts 6-10 /lpf (0-2) H 01/07/17 12:56 Stool Occult Blood Positive (NEGATIVE) H 01/19/17 18:55 Vancomycin Trough 14.9 ug/mL (5.0-10.0) H 01/18/17 06:42 C. difficile Ag & Toxin Negative (NEGATIVE) 01/13/17 14:30 Blood Type A POSITIVE 01/17/17 01:57 Antibody Screen Negative 01/17/17 01:57 Discharge Exam - Head Exam Head Exam: NORMAL INSPECTION, NORMOCEPHALIC Discharge Plan - Follow Up Plan Condition: CRITICAL Disposition: [facility] Instructions: Hypertension (DC), Hypertension (GEN), Weakness (GEN)
== END 2017-01-21 20:35 | DRG 870 ==
LOC: C.ER 09:35 → C.9E 13:44 → C.9I 14:40
PROVIDERS: ADMIT Family Medicine; ATTEND Family Medicine
PROC: 02HV33Z Insertion of Infusion Device into Superior Vena Cava, Percutaneous Approach (ICD-10-PCS; principal; 2017-01-07)
PROC: B548ZZA Ultrasonography of Superior Vena Cava, Guidance (ICD-10-PCS; 2017-01-07)
PROC: 5A1955Z Respiratory Ventilation, Greater than 96 Consecutive Hours (ICD-10-PCS; 2017-01-08)
PROC: 0BH17EZ Insertion of Endotracheal Airway into Trachea, Via Natural or Artificial Opening (ICD-10-PCS; 2017-01-08)
PROC: 0DB98ZX Excision of Duodenum, Via Natural or Artificial Opening Endoscopic, Diagnostic (ICD-10-PCS; 2017-01-17)
PROC: 0DB68ZX Excision of Stomach, Via Natural or Artificial Opening Endoscopic, Diagnostic (ICD-10-PCS; 2017-01-17)
PROC: 0DB68ZZ Excision of Stomach, Via Natural or Artificial Opening Endoscopic (ICD-10-PCS; 2017-01-17)
PROC: 30233N1 Transfusion of Nonautologous Red Blood Cells into Peripheral Vein, Percutaneous Approach (ICD-10-PCS; 2017-01-17)
PROC: 05PYX3Z Removal of Infusion Device from Upper Vein, External Approach (ICD-10-PCS; 2017-01-17)
PROC: 02HV33Z Insertion of Infusion Device into Superior Vena Cava, Percutaneous Approach (ICD-10-PCS; 2017-01-17)
PROC: B548ZZA Ultrasonography of Superior Vena Cava, Guidance (ICD-10-PCS; 2017-01-17)
PROC: 5A09457 Assistance with Respiratory Ventilation, 24-96 Consecutive Hours, Continuous Positive Airway Pressure (ICD-10-PCS; 2017-01-18)
DX: A41.1 Sepsis due to other specified staphylococcus (principal); J69.0 Pneumonitis due to inhalation of food and vomit; J96.21 Acute and chronic respiratory failure with hypoxia; R65.21 Severe sepsis with septic shock; I50.33 Acute on chronic diastolic (congestive) heart failure; E87.2 Acidosis; G82.20 Paraplegia, unspecified; G35 Multiple sclerosis; I48.91 Unspecified atrial fibrillation; J96.22 Acute and chronic respiratory failure with hypercapnia; J44.1 Chronic obstructive pulmonary disease with (acute) exacerbation; I13.0 Hypertensive heart and chronic kidney disease with heart failure and stage 1 through stage 4 chronic kidney disease, or unspecified chronic kidney disease; E66.2 Morbid (severe) obesity with alveolar hypoventilation; E11.22 Type 2 diabetes mellitus with diabetic chronic kidney disease; D64.9 Anemia, unspecified; E78.00 Pure hypercholesterolemia, unspecified; Z86.718 Personal history of other venous thrombosis and embolism; E83.39 Other disorders of phosphorus metabolism; E87.6 Hypokalemia; I73.9 Peripheral vascular disease, unspecified; M06.9 Rheumatoid arthritis, unspecified; M81.0 Age-related osteoporosis without current pathological fracture; N18.9 Chronic kidney disease, unspecified; Y95 Nosocomial condition; Z74.01 Bed confinement status; Z79.899 Other long term (current) drug therapy; Z82.5 Family history of asthma and other chronic lower respiratory diseases; Z86.711 Personal history of pulmonary embolism; K31.7 Polyp of stomach and duodenum; K44.9 Diaphragmatic hernia without obstruction or gangrene; K29.80 Duodenitis without bleeding; K29.70 Gastritis, unspecified, without bleeding; Z79.4 Long term (current) use of insulin

== ENCOUNTER 2017-01-25 19:15 | Inpatient (IN) | payer MEDICARE, MEDICAID ==
[2017-01-25] MEDS ORDERED: Sodium Chloride 0.9% 1,000 ML IV STA ×2 (20:05→20:23)
--- NOTE | 2017-01-25 20:11 | C.PDOC ---
History Of Present Illness 76 y/o F [facility]. Patient was recently admitted to this hospital approximately 2 weeks ago for hypercapneic respiratory failure, pneumonia, and sepsis and was discharged earlier today. According to previous notes, patient was alert prior to discharge. According to transfer papers, patient lethargic, hypotensive, tachycardic, with hypoxia down to 61%. Unable to obtain full HPI and ROS due to clinical condition. Time Seen by Provider: 01/25/17 19:58 Chief Complaint (Nursing): Altered Mental Status Past Medical History Vital Signs: Last Vital Signs Temp 98.7 F 01/25/17 19:33 Pulse 108 H 01/26/17 01:15 Resp 22 01/26/17 01:15 BP 123/85 01/26/17 01:15 Pulse Ox 93 L 01/26/17 01:15 - Medical History PMH: Anemia, Anxiety, Arthritis, Cardia Arrhythmia, COPD, Depression, HTN, Hyperlipidemia, Multiple Sclerosis, Osteoporosis, Peripheral Edema, Pulmonary Embolism, Chronic Kidney Disease, Rheumatoid Arthritis Denies: Alzheimer's Disease, Asthma, Atrial Fibrillation, Bronchitis, CHF, Dementia, Emphysema, Fractures, HIV, Hyperthyroidism, Hypothyroidism, Kidney Stones, Migraine, Mitral Valve Prolapse, Parkinson's Disease, Pneumonia, Seizures, Sleep Apnea, TIA Surgical History: Denies: Pacemaker - [facility] Procedures ASSISTANCE WITH RESPIRATORY VENTILATION, 24-96 HRS, CPAP (01/07/17) EXCISION OF DUODENUM, ENDO, DIAGN (01/07/17) EXCISION OF STOMACH, ENDO (01/07/17) EXCISION OF STOMACH, ENDO, DIAGN (01/07/17) EXCISION OF TOE NAIL, EXTERNAL APPROACH (05/06/16) INSERT INFUSION DEV IN R INT JUGULAR VEIN, PERC (07/31/15) INSERTION OF ENDOTRACHEAL AIRWAY INTO TRACHEA, VIA OPENING (01/07/17) INSERTION OF INFUSION DEV INTO SUP VENA CAVA, PERC APPROACH (01/07/17) INTRODUCE OF OTH ANTI-INFECT INTO PERIPH VEIN, PERC APPROACH (07/31/15) INTRODUCTION OF VASOPRESSOR INTO PERIPH VEIN, PERC APPROACH (05/06/16) REMOVAL OF INFUSION DEVICE FROM UPPER VEIN, DEMOLITION SPECIALIST APPROACH (01/07/17) RESPIRATORY VENTILATION, GREATER THAN 96 CONSECUTIVE HOURS (01/07/17) TRANSFUSE NONAUT FROZEN PLASMA IN PERIPH VEIN, PERC (07/31/15) TRANSFUSE NONAUT RED BLOOD CELLS IN PERIPH VEIN, PERC (01/07/17) ULTRASONOGRAPHY OF RIGHT JUGULAR VEINS, GUIDANCE (07/31/15) ULTRASONOGRAPHY OF SUPERIOR VENA CAVA, GUIDANCE (01/07/17) Family History: States: Unknown Family Hx - Social History Hx Alcohol Use: No Hx Substance Use: No - Immunization History Hx Tetanus Toxoid Vaccination: No Hx Influenza Vaccination: No Hx Pneumococcal Vaccination: No Review Of Systems Review Of Systems: ROS cannot be obtained secondary to pt's inabilty to answer questions. Physical Exam - Physical Exam Additional Physical Exam Comments: Constitutional: Lethargic Head: Normocephalic. Atraumatic. Eyes: PERRL. EOMI. ENT: Moist mucous membranes. Neck: Supple. Cardiovascular: Tachycardic. Chest: No tenderness. Respiratory: Diffuse rhonchi. Pulse oximetry 93% on 100% NRB. GI: Soft. Nontender. Nondistended. Back: Sacral ulcer. Musculoskeletal: Mild pitting edema of lower extremities. R arm PICC. Padding in place to lower extremities. Skin: No rash. Neurologic: Appears to respond to verbal stimuli but not alert. Lethargic. ED Course And Treatment - Laboratory Results Result Diagrams: 01/25/17 20:26 01/25/17 20:26 O2 Sat by Pulse Oximetry: 91 Critical Care Time - Critical Care Note Total Time (in mins): 45 Comments: Patient required complex decision making, multiple communications with specialty services, frequent re-evaluations. Documented critical care: time excludes all time spent performing seperately billable procedures. Medical Decision Making Medical Decision Making: pH 7.22 pCO2 78 Lactate 1.1 Started on BIPAP, will redraw blood gas in 1 hour. EKG: SR 117 bmp, No ST/T wave changes Repeat blood gas shows improving acidosis and pCO2. Patient now awake, responding to questions. HR improved to 100, BP improved to 120s/80s. Dr. Dumont accepts patient to his service. Dr. Asif accepts patient to ICU. Disposition Discussed With : Davion Asif Doctor Will See Patient In The: ED - Disposition Disposition: HOSPITALIZED Disposition Time: 23:59 Condition: CRITICAL - Clinical Impression Clinical Impression: Respiratory distress, Hypoxia, Hypercapnia
[2017-01-25 20:29] LABS: DRAW SITE RRA
[2017-01-25 20:33] LABS: BASO # 0.1 K/uL (0.0-0.2); BASO % 1.3 % (0.0-2.0); HEMATOCRIT 36.7 % (34.0-47.0); LYMPH # 0.2 K/uL (1.0-4.3); LYMPH % 2.5 % (20.0-40.0); MEAN CELL VOLUME 96.4 fL (81.0-99.0); MEAN CORPUSCULAR HEMOGLOBIN 32.7 pg (27.0-31.0); MONO # 0.1 K/uL (0.0-0.8); NRBC % 1.1 % (0.0-2.0); PLATELET COUNT 147 K/uL (130-400); RED CELL DISTRIBUTION WIDTH 16.3 % (11.5-14.5); WHITE BLOOD COUNT 7.3 K/uL (4.8-10.8)
[2017-01-25 20:45] LABS: INR 0.9
[2017-01-25 20:46] LABS: CHLORIDE 98 mmol/L (98-107); POTASSIUM 3.2 mmol/L (3.6-5.2); SODIUM 133 mmol/L (132-148)
[2017-01-25 20:48] LABS: ALKALINE PHOSPHATASE 78 U/L (38-126); AST/SGOT 22 U/L (14-36); BILIRUBIN,TOTAL 0.8 mg/dL (0.2-1.3); CARBON DIOXIDE 30 mmol/L (22-30); GFR AFRICAN-AMERICAN > 60; TOTAL PROTEIN 5.7 g/dL (6.3-8.3)
[2017-01-25 20:49] LABS: ALT/SGPT 43 U/L (9-52); BLOOD UREA NITROGEN 14 mg/dL (7-17); CALCIUM 7.5 mg/dl (8.6-10.4); GLUCOSE,RANDOM 244 mg/dL (65-105)
[2017-01-25] MEDS ORDERED: Sodium Chloride 0.9% 2,000 ML ONE (20:59)
[2017-01-25 21:35] LABS: ABG MECHANICAL RATE 15; ARTERIAL BLOOD GAS MODE BiPAP; ARTERIAL BLOOD HGB O2 SAT 90.5 % (95.0-98.0); CARBOXYHEMOGLOBIN 2.8 % (0.5-1.5); DRAW SITE RRA; HHB 5.3 % (0.0-5.0); METHEMOGLOBIN 1.3 % (0.0-3.0)
[2017-01-25 21:42] LABS: NEUTROPHIL 90 % (50-75); NUCLEATED RED BLOOD CELL 1 % (0-0); TOTAL CELLS COUNTED 100
[2017-01-25 23:04] LABS: RBC URINE 5 /hpf (0-3); URINE BILIRUBIN NEGATIVE (NEGATIVE); URINE BLOOD 1+ (NEGATIVE); URINE COLOR Straw (YELLOW); URINE GLUCOSE (UA) NORMAL (Normal); URINE KETONE NEGATIVE (NEGATIVE); URINE LEUKOCYTE ESTERASE NEG Leu/uL (Negative); URINE PROTEIN NEGATIVE (NEGATIVE); URINE UROBILINOGEN NORMAL mg/dL (0.2-1.0); WBC URINE 3 /hpf (0-5)
[2017-01-26] MEDS ORDERED: Modafinil 50 MG TAB PO STA (01:08)
[2017-01-26] MEDS ORDERED: Sodium Chloride 0.9% 1,000 ML IV SCH (01:15)
[2017-01-26] MEDS ORDERED: Sodium Chloride 0.9% 1,000 ML ONE (01:46)
--- NOTE | 2017-01-26 02:27 | CP.PCM.CON ---
History of Present Illness - History of Present Illness History of Present Illness: 76 F with h/o MS, paraplegia, h/o DVT, PE, s/p IVC filter, h/o niddm, h/o GI bleeding during last admission, h/o resp failure last admission with hypercapnia at presentation and later having shunt like behaviour with no significant change on higher PO2, recent use of steroid for MS on tapering dose and N[facility] resident. Patient transferred from [place] with lethargy, hypoxia, hypotension. In ER found to be hypoxic, and hypercapnic and treated with bipap 14/7/100% and IVF. Patient responded with arousal, improvement of ph, pco2, and blood pressure. CXR unchanged from last admission with elevation of the right hemidiaprhagm. Patient at time of eval was following commands, not in distress, denied pain. PMH as above PSH as above Allergies noted, patient during last admission did received iv contrast but was on iv steroids during the time Social history [facility] resident, no smoking, alcohol Meds reviewed form [place] record Review of Systems - Review of Systems All systems: reviewed and no additional remarkable complaints except (HPI) Past Patient History - Infectious Disease Hx of Infectious Diseases: MRSA - Tetanus Immunizations Tetanus Immunization: Up to Date - Past Medical History & Family History Past Medical History?: Yes - Past Social History Smoking Status: Never Smoked Alcohol: None Drugs: Denies Home Situation {Lives}: [facility]pc - CARDIAC Hx Atrial Fibrillation: No Hx Cardia Arrhythmia: Yes Hx Congestive Heart Failure: No Hx Hypertension: Yes Hx Mitral Valve Prolapse: No Hx Pacemaker: No Hx Peripheral Edema: Yes - PULMONARY Hx Asthma: No Hx Bronchitis: No Hx Chronic Obstructive Pulmonary Disease (COPD): Yes Hx Emphysema: No Hx Pneumonia: No Hx Pulmonary Embolism: Yes Hx Sleep Apnea: No - NEUROLOGICAL Hx Alzheimer's Disease: No Hx Dementia: No Hx Migraine: No Hx Multiple Sclerosis: Yes Hx Parkinson's Disease: No Hx Seizures: No Hx Transient Ischemic Attacks (TIA): No - HEENT Hx HEENT Problems: Yes Hx Blind: No Hx Cataracts: Yes Hx Difficulty Chewing: No Hx Epistaxis: No Hx Glaucoma: No Hx Macular Degeneration: No Other/Comment: wears eyeglasses for reading - RENAL Hx Chronic Kidney Disease: Yes Hx Kidney Stones: No - ENDOCRINE/METABOLIC Hx Hyperthyroidism: No Hx Hypothyroidism: No - HEMATOLOGICAL/ONCOLOGICAL Hx Anemia: Yes Hx Human Immunodeficiency Virus (HIV): No - INTEGUMENTARY Hx Dermatological Problems: Yes Hx Eczema: Yes Hx Melanoma: No Hx Psoriasis: No Hx Squamous Cell: No Other/Comment: > hx of garvin hong syndrome, unknown precipitant. > hx of bullous pemphigoid - MUSCULOSKELETAL/RHEUMATOLOGICAL Hx Arthritis: Yes Hx Fractures: No Hx Osteoporosis: Yes Hx Rheumatoid Arthritis: Yes - GASTROINTESTINAL Hx Gastrointestinal Disorders: Yes Hx Constipation: Yes - GENITOURINARY/GYNECOLOGICAL Other/Comment: wears a diaper in the assisted (as with all patients) - PSYCHIATRIC Hx Anxiety: Yes Hx Depression: Yes Hx Substance Use: No - SURGICAL HISTORY Hx Surgeries: Yes Other/Comment: IVC filter 5-6 years ago for b/l DVT - ANESTHESIA Hx Anesthesia: Yes Hx Anesthesia Reactions: No Hx Malignant Hyperthermia: No Meds Allergies/Adverse Reactions: Allergies Allergy/AdvReac Type Severity Reaction Status Date / Time ascorbic acid Allergy Severe ANAPHYLAXIS Verified 01/25/17 19:38 aspirin Allergy RASH Verified 01/25/17 19:38 iodine Allergy RASH Verified 01/25/17 19:38 Ponds cream Allergy Severe ANAPHYLAXIS Uncoded 05/07/16 00:13 - Medications Medications: Current Medications Albuterol/Ipratropium (Duoneb 3 Mg/0.5 Mg (3 Ml) Ud) 3 ml INH RQ6 RAUL Budesonide (Pulmicort Respules) 0.5 mg INH RQ12 RAUL Heparin Sodium (Porcine) (Heparin) 5,000 units SC Q12H [facility] Last Admin: 01/26/17 01:48 Dose: 5,000 units Sodium Chloride (Sodium Chloride 0.9%) 1,000 mls @ 75 mls/hr IV .[id number] [facility] Last Admin: 01/26/17 01:52 Dose: 75 mls/hr Modafinil (Provigil) 100 mg PO DAILY RAUL Pantoprazole Sodium (Protonix Susp) 40 mg PO 0600 RAUL Rosuvastatin Calcium (Crestor) 5 mg PO HS RAUL Sucralfate (Carafate Oral Susp) 1 gm PO Q6 [facility] Physical Exam - Additional Findings Additional findings: * HEENT SABINO * Neck supple * Chest reduced in both basis, on bipap when sleeping Vt about 250ml, when awake 300-500 range * CVS regular, no rub, or gallop * PA soft, subcut hematoma noticed from prior heparin or insulin administration * Ext 1+ edema, right arm picc line * Skin normal turgor * HEAVY FORGER sleeping but arousable, can not move legs, moves both arms, and follows commands * Results - Vital Signs Recent Vital Signs: Last Vital Signs Temp 98.7 F 01/25/17 19:33 Pulse 108 H 01/26/17 01:15 Resp 22 01/26/17 01:15 BP 123/85 01/26/17 01:15 Pulse Ox 93 L 01/26/17 01:15 - Labs Result Diagrams: 01/25/17 20:26 01/25/17 20:26 Labs: Laboratory Results - last 24 hr 01/25/17 01/25/17 01/25/17 20:25 20:26 20:26 WBC 7.3 RBC 3.80 Hgb 12.5 D Hct 36.7 MCV 96.4 D MCH 32.7 H MCHC 34.0 RDW 16.3 H Plt Count 147 D MPV 9.0 Neut % (Auto) 94.2 H Lymph % (Auto) 2.5 L [place] % (Auto) 2.0 Eos % (Auto) 0.0 Baso % (Auto) 1.3 Neut # 6.8 Lymph # 0.2 L Nicholas # 0.1 Eos # 0.0 Baso # 0.1 Neutrophils % (Manual) 90 H Band Neutrophils % 7 H Lymphocytes % (Manual) 2 L Monocytes % (Manual) 1 Nucleated RBC % 1 H Platelet Estimate Normal PT INR APTT Puncture Site Rra pCO2 78 H* pO2 70 L HCO3 26.1 ABG pH 7.22 L ABG Total CO2 34.3 H ABG O2 Saturation 94.7 L ABG Base Excess 1.8 ABG Hemoglobin ABG Carboxyhemoglobin POC ABG HHb (Measured) ABG Methemoglobin Jose Maria Test Na ABG Potassium 3.2 L A-a O2 Difference 546.0 Respiratory Index 7.8 Hgb O2 Saturation Sodium 138.0 133 Chloride 104.0 98 Glucose 264 H Lactate 1.1 Vent Mode Mechanical Rate FiO2 100.0 Inspiratory BiPAP Expiratory BiPAP Crit Value Called To Dr. george imm Crit Value Called By Meet rt Crit Value Read Back Y Blood Gas Notified Time 2027 Potassium 3.2 L Carbon Dioxide 30 Anion Gap 9 L BUN 14 Creatinine 0.7 Est GFR ( Amer) > 60 Est GFR (Non-Af Amer) > 60 Random Glucose 244 H Calcium 7.5 L Total Bilirubin 0.8 AST 22 ALT 43 Alkaline Phosphatase 78 NT-Pro-B Natriuret Pep 6880 H Total Protein 5.7 L Albumin 2.9 L Globulin 2.9 Albumin/Globulin Ratio 1.0 Arterial Blood Potassium 3.2 L Urine Color Urine Clarity Urine pH Ur Specific [place] Urine Protein Urine Glucose (UA) Urine Ketones Urine Blood Urine Nitrate Urine Bilirubin Urine Urobilinogen Ur Leukocyte Esterase Urine WBC (Auto) Urine RBC (Auto) Ur Squamous Epith Cells 01/25/17 01/25/17 01/25/17 20:26 21:32 22:49 WBC RBC Hgb Hct MCV MCH MCHC RDW Plt Count MPV Neut % (Auto) Lymph % (Auto) Nicholas % (Auto) Eos % (Auto) Baso % (Auto) Neut # Lymph # Nicholas # Eos # Baso # Neutrophils % (Manual) Band Neutrophils % Lymphocytes % (Manual) Monocytes % (Manual) Nucleated RBC % Platelet Estimate PT 9.6 L INR 0.9 APTT 25 Puncture Site Rra pCO2 63 H pO2 64 L HCO3 26.7 ABG pH 7.29 L ABG Total CO2 32.2 H ABG O2 Saturation 94.5 L ABG Base Excess 2.5 ABG Hemoglobin 11.1 L ABG Carboxyhemoglobin 2.8 H POC ABG HHb (Measured) 5.3 H ABG Methemoglobin 1.3 Jose Maria Test Na ABG Potassium A-a O2 Difference 570.0 Respiratory Index 8.9 Hgb O2 Saturation 90.5 L Sodium Chloride Glucose Lactate Vent Mode Bipap Mechanical Rate 15 FiO2 100.0 Inspiratory BiPAP 14 Expiratory BiPAP 7 Crit Value Called To Crit Value Called By Crit Value Read Back Blood Gas Notified Time Potassium Carbon Dioxide Anion Gap BUN Creatinine Est GFR ( Amer) Est GFR (Non-Af Amer) Random Glucose Calcium Total Bilirubin AST ALT Alkaline Phosphatase NT-Pro-B Natriuret Pep Total Protein Albumin Globulin Albumin/Globulin Ratio Arterial Blood Potassium Urine Color Straw Urine Clarity Clear Urine pH 7.0 Ur Specific [place] 1.004 Urine Protein Negative Urine Glucose (UA) Normal Urine Ketones Negative Urine Blood 1+ H Urine Nitrate Negative Urine Bilirubin Negative Urine Urobilinogen Normal Ur Leukocyte Esterase Neg Urine WBC (Auto) 3 Urine RBC (Auto) 5 H Ur Squamous Epith Cells 2 Assessment & Plan - Assessment and Plan (Free Text) Assessment: * Hypercapnic resp failure probably central will need to be assessed or obstructive sleep apnea * Hypoxic resp failure or elevated AA gradient not new likely has a shunt * h/o PE s/p ivc filter * Recent h/o gi bleeding * hgb stablized higher this admission due to hemoconcentarion * Recent pulse dose steroids form MS on tapering steroid * NIDDM Plan: * Since patient has responded in ph, pco2 with bipap and initial ivf will continue bipap, titrate fio2, modafinil added in suspicion of central sleep apnea, nebs, inhaled steroids * GI prophylaxis * DVT prophylaxis with subq heparin as patient high risk for dvt, clot burden, small subq hematoma will be observed * Accuchecks * Decubiti care * Recommend stopping steroid rather post pulse dose therapy * Observe in ICU * See orders for detail
[2017-01-26 02:31] LABS: ABG ALLEN TEST POS; ARTERIAL BLOOD GAS MODE BiPAP; DRAW SITE RR
[2017-01-26] MEDS ORDERED: Albuterol-Ipratrop 3 mg / 0.5 (3 ml) UD ONE (02:35)
[2017-01-26] MEDS: Albuterol-Ipratrop 3 mg / 0.5 (3 ml) UD INH SCH ×2 (03:09→07:39)
[2017-01-26 03:31] LABS: BASO % 0.2 % (0.0-2.0); EOS % 0.1 % (0.0-4.0); HEMATOCRIT 35.5 % (34.0-47.0); LYMPH # 0.2 K/uL (1.0-4.3); LYMPH % 4.9 % (20.0-40.0); MEAN CELL VOLUME 96.1 fL (81.0-99.0); MEAN CORPUSCULAR HEMOGLOBIN 32.2 pg (27.0-31.0); MEAN CORPUSCULAR HGB CONC 33.5 g/dL (33.0-37.0); MONO % 1.4 % (0.0-10.0); NRBC % 1.6 % (0.0-2.0); PLATELET COUNT 115 K/uL (130-400); RED CELL DISTRIBUTION WIDTH 16.3 % (11.5-14.5); WHITE BLOOD COUNT 3.5 K/uL (4.8-10.8)
[2017-01-26 04:20] LABS: MYELOCYTE 1 % (0-0); NEUTROPHIL 58 % (50-75); TOTAL CELLS COUNTED 100
[2017-01-26] MEDS: Pantoprazole 40 mg Susp UD PO SCH (06:13)
[2017-01-26] MEDS: Sucralfate 1 gm/10 ml Oral Susp UD PO SCH ×3 (06:13→17:42)
[2017-01-26] MEDS: Budesonide 0.5 mg/2 ml Inhal Susp UD INH SCH ×2 (07:39→20:20)
--- NOTE | 2017-01-26 09:45 | CP.CCUPN ---
CCU Subjective - Physician Review Events Since Last Encounter (Free Text): 01/26/17 09:45 Patient currently on BiPAP. She is awake and responding. X-ray showing right lower lobe infiltrative changes. Bands elevated today. We'll start the patient on IV antibiotic. Patient has a PICC line. Continue to monitor the respiratory status. Will follow-up the patient CCU Objective - Vital Signs / Intake & Output Vital Signs (Last 4 hours): Vital Signs Temp Pulse Resp BP Pulse Ox 01/26/17 07:40 127 H 01/26/17 07:36 126 H 12 99/72 L 98 01/26/17 07:00 98.6 F 130 H 16 96 01/26/17 06:36 128 H 23 112/81 97 01/26/17 06:00 131 H 19 82 L 01/26/17 05:58 97 F L 01/26/17 05:47 137 H 29 H 81 L Intake and Output (Last 8hrs): Intake & Output 01/25/17 01/26/17 01/26/17 22:59 06:59 14:59 Intake Total 150 75 Output Total 250 30 Balance -100 45 Weight 1290 lb 138 lb 9.6 oz Intake: Intake, IV Amount 150 75 Right Upper arm 150 75 Output: Urine 250 30 Urethral ([place]) 250 30 Other: Voiding Method Indwelling Catheter # Bowel Movements 1 - Medications Active Medications: Active Medications Generic Name Dose Route Start Last Admin Trade Name Freq PRN Reason Stop Dose Admin Albuterol/Ipratropium 3 ml 01/26/17 02:00 01/26/17 07:39 Duoneb 3 Mg/0.5 Mg (3 Ml) Ud INH 3 ml RQ6 RAUL Administration Budesonide 0.5 mg 01/26/17 08:00 01/26/17 07:39 Pulmicort Respules INH 0.5 mg RQ12 RAUL Administration Heparin Sodium (Porcine) 5,000 units 01/26/17 01:15 01/26/17 01:48 Heparin SC 5,000 units Q12H RAUL Administration Vancomycin HCl 1 gm/ Sodium 250 mls @ 166.7 mls/hr 01/26/17 09:45 Chloride IVPB Q24H RAUL Piperacillin Sod/Tazobactam 100 mls @ 200 mls/hr 01/26/17 09:45 Sod 3.375 gm/ Sodium Chloride IVPB Q8H RAUL Modafinil 100 mg 01/26/17 10:00 Provigil PO DAILY RAUL Pantoprazole Sodium 40 mg 01/26/17 06:00 01/26/17 06:13 Protonix Susp PO Not Given 0600 RAUL Rosuvastatin Calcium 5 mg 01/26/17 22:00 Crestor PO HS RAUL Sucralfate 1 gm 01/26/17 06:00 01/26/17 06:13 Carafate Oral Susp PO Not Given Q6 RAUL - Patient Studies Lab Studies: Lab Studies 01/26/17 01/26/17 01/26/17 Range/Units 07:53 03:23 03:23 WBC 3.5 L D (4.8-10.8) K/uL RBC 3.69 L (3.80-5.20) Mil/uL Hgb 11.9 (11.0-16.0) g/dL Hct 35.5 (34.0-47.0) % MCV 96.1 (81.0-99.0) fL MCH 32.2 H (27.0-31.0) pg MCHC 33.5 (33.0-37.0) g/dL RDW 16.3 H (11.5-14.5) % Plt Count 115 L D (130-400) K/uL MPV 9.0 (7.2-11.7) fL Neut % (Auto) 93.4 H (50.0-75.0) % Lymph % (Auto) 4.9 L (20.0-40.0) % Lane % (Auto) 1.4 (0.0-10.0) % Eos % (Auto) 0.1 (0.0-4.0) % Baso % (Auto) 0.2 (0.0-2.0) % Neut # 3.2 (1.8-7.0) K/uL Lymph # 0.2 L (1.0-4.3) K/uL Lane # 0.0 (0.0-0.8) K/uL Eos # 0.0 (0.0-0.7) K/uL Baso # 0.0 (0.0-0.2) K/uL Neutrophils % (Manual) 58 (50-75) % Band Neutrophils % 36 H* (0-2) % Lymphocytes % (Manual) 5 L (20-40) % Monocytes % (Manual) 0 (0-10) % Myelocytes % 1 H (0-0) % Nucleated RBC % (0-0) % Platelet Estimate Decreased L (NORMAL) PT (9.7-12.2) SECONDS INR APTT (21-34) SECONDS Puncture Site pCO2 (35-45) mm/Hg pO2 (80-100) mm/Hg HCO3 (21-28) mmol/L ABG pH (7.35-7.45) ABG Total CO2 (22-28) mmol/L ABG O2 Saturation (95-98) % ABG Base Excess (-2.0-3.0) mmol/L ABG Hemoglobin (11.7-17.4) g/dL ABG Carboxyhemoglobin (0.5-1.5) % POC ABG HHb (Measured) (0.0-5.0) % ABG Methemoglobin (0.0-3.0) % Jose Maria Test ABG Potassium (3.6-5.2) mmol/L A-a O2 Difference mm/Hg Respiratory Index Hgb O2 Saturation (95.0-98.0) % Sodium (132-148) mmol/l Chloride (98-107) mmol/L Glucose (65-105) mg/dl Lactate (0.7-2.1) mmol/L Vent Mode Mechanical Rate FiO2 % Inspiratory BiPAP Expiratory BiPAP Crit Value Called To Crit Value Called By Crit Value Read Back Blood Gas Notified Time Potassium (3.6-5.2) mmol/L Carbon Dioxide (22-30) mmol/L Anion Gap (10-20) BUN (7-17) mg/dL Creatinine (0.7-1.2) mg/dL Est GFR ( Amer) Est GFR (Non-Af Amer) POC Glucose (mg/dL) 148 H (65-110) mg/dL Random Glucose (65-105) mg/dL Calcium (8.6-10.4) mg/dl Total Bilirubin (0.2-1.3) mg/dL AST (14-36) U/L ALT (9-52) U/L Alkaline Phosphatase (38-126) U/L NT-Pro-B Natriuret Pep (0-900) pg/mL Total Protein (6.3-8.3) g/dL Albumin (3.5-5.0) g/dL Globulin (2.2-3.9) gm/dL Albumin/Globulin Ratio (1.0-2.1) Cortisol AM Sample (4.46-22.7) ug/dL Arterial Blood Potassium (3.6-5.2) mmol/L Urine Color (YELLOW) Urine Clarity (Clear) Urine pH (5.0-8.0) Ur Specific Harlan (1.003-1.030) Urine Protein (NEGATIVE) mg/dL Urine Glucose (UA) (Normal) mg/dL Urine Ketones (NEGATIVE) mg/dL Urine Blood (NEGATIVE) Urine Nitrate (NEGATIVE) Urine Bilirubin (NEGATIVE) Urine Urobilinogen (0.2-1.0) mg/dL Ur Leukocyte Esterase (Negative) Tisha/uL Urine WBC (Auto) (0-5) /hpf Urine RBC (Auto) (0-3) /hpf Ur Squamous Epith Cells (0-5) /hpf Ur Random Sodium 115 mmol/L 01/26/17 01/26/17 01/25/17 Range/Units 03:23 02:25 22:49 WBC (4.8-10.8) K/uL RBC (3.80-5.20) Mil/uL Hgb (11.0-16.0) g/dL Hct (34.0-47.0) % MCV (81.0-99.0) fL MCH (27.0-31.0) pg MCHC (33.0-37.0) g/dL RDW (11.5-14.5) % Plt Count (130-400) K/uL MPV (7.2-11.7) fL Neut % (Auto) (50.0-75.0) % Lymph % (Auto) (20.0-40.0) % Lane % (Auto) (0.0-10.0) % Eos % (Auto) (0.0-4.0) % Baso % (Auto) (0.0-2.0) % Neut # (1.8-7.0) K/uL Lymph # (1.0-4.3) K/uL Lane # (0.0-0.8) K/uL Eos # (0.0-0.7) K/uL Baso # (0.0-0.2) K/uL Neutrophils % (Manual) (50-75) % Band Neutrophils % (0-2) % Lymphocytes % (Manual) (20-40) % Monocytes % (Manual) (0-10) % Myelocytes % (0-0) % Nucleated RBC % (0-0) % Platelet Estimate (NORMAL) PT (9.7-12.2) SECONDS INR APTT (21-34) SECONDS Puncture Site Rr pCO2 45 (35-45) mm/Hg pO2 62 L (80-100) mm/Hg HCO3 25.5 (21-28) mmol/L ABG pH 7.38 (7.35-7.45) ABG Total CO2 28.0 (22-28) mmol/L ABG O2 Saturation 94.9 L (95-98) % ABG Base Excess 1.0 (-2.0-3.0) mmol/L ABG Hemoglobin (11.7-17.4) g/dL ABG Carboxyhemoglobin (0.5-1.5) % POC ABG HHb (Measured) (0.0-5.0) % ABG Methemoglobin (0.0-3.0) % Jose Maria Test Pos ABG Potassium 3.1 L (3.6-5.2) mmol/L A-a O2 Difference 381.0 mm/Hg Respiratory Index 6.1 Hgb O2 Saturation (95.0-98.0) % Sodium 140.0 (132-148) mmol/l Chloride 112.0 H (98-107) mmol/L Glucose 156 H (65-105) mg/dl Lactate 0.9 (0.7-2.1) mmol/L Vent Mode Bipap Mechanical Rate FiO2 70.0 % Inspiratory BiPAP 13 Expiratory BiPAP 6 Crit Value Called To Crit Value Called By Crit Value Read Back Blood Gas Notified Time Potassium (3.6-5.2) mmol/L Carbon Dioxide (22-30) mmol/L Anion Gap (10-20) BUN (7-17) mg/dL Creatinine (0.7-1.2) mg/dL Est GFR ( Amer) Est GFR (Non-Af Amer) POC Glucose (mg/dL) (65-110) mg/dL Random Glucose (65-105) mg/dL Calcium (8.6-10.4) mg/dl Total Bilirubin (0.2-1.3) mg/dL AST (14-36) U/L ALT (9-52) U/L Alkaline Phosphatase (38-126) U/L NT-Pro-B Natriuret Pep (0-900) pg/mL Total Protein (6.3-8.3) g/dL Albumin (3.5-5.0) g/dL Globulin (2.2-3.9) gm/dL Albumin/Globulin Ratio (1.0-2.1) Cortisol AM Sample 19.9 (4.46-22.7) ug/dL Arterial Blood Potassium 3.1 L (3.6-5.2) mmol/L Urine Color Straw (YELLOW) Urine Clarity Clear (Clear) Urine pH 7.0 (5.0-8.0) Ur Specific Harlan 1.004 (1.003-1.030) Urine Protein Negative (NEGATIVE) mg/dL Urine Glucose (UA) Normal (Normal) mg/dL Urine Ketones Negative (NEGATIVE) mg/dL Urine Blood 1+ H (NEGATIVE) Urine Nitrate Negative (NEGATIVE) Urine Bilirubin Negative (NEGATIVE) Urine Urobilinogen Normal (0.2-1.0) mg/dL Ur Leukocyte Esterase Neg (Negative) Tsiha/uL Urine WBC (Auto) 3 (0-5) /hpf Urine RBC (Auto) 5 H (0-3) /hpf Ur Squamous Epith Cells 2 (0-5) /hpf Ur Random Sodium mmol/L 01/25/17 01/25/17 01/25/17 Range/Units 21:32 20:26 20:26 WBC (4.8-10.8) K/uL RBC (3.80-5.20) Mil/uL Hgb (11.0-16.0) g/dL Hct (34.0-47.0) % MCV (81.0-99.0) fL MCH (27.0-31.0) pg MCHC (33.0-37.0) g/dL RDW (11.5-14.5) % Plt Count (130-400) K/uL MPV (7.2-11.7) fL Neut % (Auto) (50.0-75.0) % Lymph % (Auto) (20.0-40.0) % Lane % (Auto) (0.0-10.0) % Eos % (Auto) (0.0-4.0) % Baso % (Auto) (0.0-2.0) % Neut # (1.8-7.0) K/uL Lymph # (1.0-4.3) K/uL Lane # (0.0-0.8) K/uL Eos # (0.0-0.7) K/uL Baso # (0.0-0.2) K/uL Neutrophils % (Manual) (50-75) % Band Neutrophils % (0-2) % Lymphocytes % (Manual) (20-40) % Monocytes % (Manual) (0-10) % Myelocytes % (0-0) % Nucleated RBC % (0-0) % Platelet Estimate (NORMAL) PT 9.6 L (9.7-12.2) SECONDS INR 0.9 APTT 25 (21-34) SECONDS Puncture Site Rra pCO2 63 H (35-45) mm/Hg pO2 64 L (80-100) mm/Hg HCO3 26.7 (21-28) mmol/L ABG pH 7.29 L (7.35-7.45) ABG Total CO2 32.2 H (22-28) mmol/L ABG O2 Saturation 94.5 L (95-98) % ABG Base Excess 2.5 (-2.0-3.0) mmol/L ABG Hemoglobin 11.1 L (11.7-17.4) g/dL ABG Carboxyhemoglobin 2.8 H (0.5-1.5) % POC ABG HHb (Measured) 5.3 H (0.0-5.0) % ABG Methemoglobin 1.3 (0.0-3.0) % Jose Maria Test Na ABG Potassium (3.6-5.2) mmol/L A-a O2 Difference 570.0 mm/Hg Respiratory Index 8.9 Hgb O2 Saturation 90.5 L (95.0-98.0) % Sodium 133 (132-148) mmol/l Chloride 98 (98-107) mmol/L Glucose (65-105) mg/dl Lactate (0.7-2.1) mmol/L Vent Mode Bipap Mechanical Rate 15 FiO2 100.0 % Inspiratory BiPAP 14 Expiratory BiPAP 7 Crit Value Called To Crit Value Called By Crit Value Read Back Blood Gas Notified Time Potassium 3.2 L (3.6-5.2) mmol/L Carbon Dioxide 30 (22-30) mmol/L Anion Gap 9 L (10-20) BUN 14 (7-17) mg/dL Creatinine 0.7 (0.7-1.2) mg/dL Est GFR ( Amer) > 60 Est GFR (Non-Af Amer) > 60 POC Glucose (mg/dL) (65-110) mg/dL Random Glucose 244 H (65-105) mg/dL Calcium 7.5 L (8.6-10.4) mg/dl Total Bilirubin 0.8 (0.2-1.3) mg/dL AST 22 (14-36) U/L ALT 43 (9-52) U/L Alkaline Phosphatase 78 (38-126) U/L NT-Pro-B Natriuret Pep 6880 H (0-900) pg/mL Total Protein 5.7 L (6.3-8.3) g/dL Albumin 2.9 L (3.5-5.0) g/dL Globulin 2.9 (2.2-3.9) gm/dL Albumin/Globulin Ratio 1.0 (1.0-2.1) Cortisol AM Sample (4.46-22.7) ug/dL Arterial Blood Potassium (3.6-5.2) mmol/L Urine Color (YELLOW) Urine Clarity (Clear) Urine pH (5.0-8.0) Ur Specific Harlan (1.003-1.030) Urine Protein (NEGATIVE) mg/dL Urine Glucose (UA) (Normal) mg/dL Urine Ketones (NEGATIVE) mg/dL Urine Blood (NEGATIVE) Urine Nitrate (NEGATIVE) Urine Bilirubin (NEGATIVE) Urine Urobilinogen (0.2-1.0) mg/dL Ur Leukocyte Esterase (Negative) [place]/uL Urine WBC (Auto) (0-5) /hpf Urine RBC (Auto) (0-3) /hpf Ur Squamous Epith Cells (0-5) /hpf Ur Random Sodium mmol/L 01/25/17 01/25/17 Range/Units 20:26 20:25 WBC 7.3 (4.8-10.8) K/uL RBC 3.80 (3.80-5.20) Mil/uL Hgb 12.5 D (11.0-16.0) g/dL Hct 36.7 (34.0-47.0) % MCV 96.4 D (81.0-99.0) fL MCH 32.7 H (27.0-31.0) pg MCHC 34.0 (33.0-37.0) g/dL RDW 16.3 H (11.5-14.5) % Plt Count 147 D (130-400) K/uL MPV 9.0 (7.2-11.7) fL Neut % (Auto) 94.2 H (50.0-75.0) % Lymph % (Auto) 2.5 L (20.0-40.0) % Lane % (Auto) 2.0 (0.0-10.0) % Eos % (Auto) 0.0 (0.0-4.0) % Baso % (Auto) 1.3 (0.0-2.0) % Neut # 6.8 (1.8-7.0) K/uL Lymph # 0.2 L (1.0-4.3) K/uL Lane # 0.1 (0.0-0.8) K/uL Eos # 0.0 (0.0-0.7) K/uL Baso # 0.1 (0.0-0.2) K/uL Neutrophils % (Manual) 90 H (50-75) % Band Neutrophils % 7 H (0-2) % Lymphocytes % (Manual) 2 L (20-40) % Monocytes % (Manual) 1 (0-10) % Myelocytes % (0-0) % Nucleated RBC % 1 H (0-0) % Platelet Estimate Normal (NORMAL) PT (9.7-12.2) SECONDS INR APTT (21-34) SECONDS Puncture Site Rra pCO2 78 H* (35-45) mm/Hg pO2 70 L (80-100) mm/Hg HCO3 26.1 (21-28) mmol/L ABG pH 7.22 L (7.35-7.45) ABG Total CO2 34.3 H (22-28) mmol/L ABG O2 Saturation 94.7 L (95-98) % ABG Base Excess 1.8 (-2.0-3.0) mmol/L ABG Hemoglobin (11.7-17.4) g/dL ABG Carboxyhemoglobin (0.5-1.5) % POC ABG HHb (Measured) (0.0-5.0) % ABG Methemoglobin (0.0-3.0) % Jose Maria Test Na ABG Potassium 3.2 L (3.6-5.2) mmol/L A-a O2 Difference 546.0 mm/Hg Respiratory Index 7.8 Hgb O2 Saturation (95.0-98.0) % Sodium 138.0 (132-148) mmol/l Chloride 104.0 (98-107) mmol/L Glucose 264 H (65-105) mg/dl Lactate 1.1 (0.7-2.1) mmol/L Vent Mode Mechanical Rate FiO2 100.0 % Inspiratory BiPAP Expiratory BiPAP Crit Value Called To Dr. george imm Crit Value Called By Meet rt Crit Value Read Back Y Blood Gas Notified Time 2027 Potassium (3.6-5.2) mmol/L Carbon Dioxide (22-30) mmol/L Anion Gap (10-20) BUN (7-17) mg/dL Creatinine (0.7-1.2) mg/dL Est GFR ( Amer) Est GFR (Non-Af Amer) POC Glucose (mg/dL) (65-110) mg/dL Random Glucose (65-105) mg/dL Calcium (8.6-10.4) mg/dl Total Bilirubin (0.2-1.3) mg/dL AST (14-36) U/L ALT (9-52) U/L Alkaline Phosphatase (38-126) U/L NT-Pro-B Natriuret Pep (0-900) pg/mL Total Protein (6.3-8.3) g/dL Albumin (3.5-5.0) g/dL Globulin (2.2-3.9) gm/dL Albumin/Globulin Ratio (1.0-2.1) Cortisol AM Sample (4.46-22.7) ug/dL Arterial Blood Potassium 3.2 L (3.6-5.2) mmol/L Urine Color (YELLOW) Urine Clarity (Clear) Urine pH (5.0-8.0) Ur Specific Harlan (1.003-1.030) Urine Protein (NEGATIVE) mg/dL Urine Glucose (UA) (Normal) mg/dL Urine Ketones (NEGATIVE) mg/dL Urine Blood (NEGATIVE) Urine Nitrate (NEGATIVE) Urine Bilirubin (NEGATIVE) Urine Urobilinogen (0.2-1.0) mg/dL Ur Leukocyte Esterase (Negative) Tisha/uL Urine WBC (Auto) (0-5) /hpf Urine RBC (Auto) (0-3) /hpf Ur Squamous Epith Cells (0-5) /hpf Ur Random Sodium mmol/L Laboratory Results - last 24 hr 01/25/17 01/25/17 01/25/17 20:25 20:26 20:26 WBC 7.3 RBC 3.80 Hgb 12.5 D Hct 36.7 MCV 96.4 D MCH 32.7 H MCHC 34.0 RDW 16.3 H Plt Count 147 D MPV 9.0 Neut % (Auto) 94.2 H Lymph % (Auto) 2.[address] % (Auto) 2.0 Eos % (Auto) 0.0 Baso % (Auto) 1.3 Neut # 6.8 Lymph # 0.[address] # 0.1 Eos # 0.0 Baso # 0.1 Neutrophils % (Manual) 90 H Band Neutrophils % 7 H Lymphocytes % (Manual) 2 L Monocytes % (Manual) 1 Myelocytes % Nucleated RBC % 1 H Platelet Estimate Normal PT INR APTT Puncture Site Rra pCO2 78 H* pO2 70 L HCO3 26.1 ABG pH 7.22 L ABG Total CO2 34.3 H ABG O2 Saturation 94.7 L ABG Base Excess 1.8 ABG Hemoglobin ABG Carboxyhemoglobin POC ABG HHb (Measured) ABG Methemoglobin Jose Maria Test Na ABG Potassium 3.2 L A-a O2 Difference 546.0 Respiratory Index 7.8 Hgb O2 Saturation Sodium 138.0 133 Chloride 104.0 98 Glucose 264 H Lactate 1.1 Vent Mode Mechanical Rate FiO2 100.0 Inspiratory BiPAP Expiratory BiPAP Crit Value Called To Dr. ariel headley Crit Value Called By Meet rt Crit Value Read Back Y Blood Gas Notified Time 2027 Potassium 3.2 L Carbon Dioxide 30 Anion Gap 9 L BUN 14 Creatinine 0.7 Est GFR ( Amer) > 60 Est GFR (Non-Af Amer) > 60 POC Glucose (mg/dL) Random Glucose 244 H Calcium 7.5 L Total Bilirubin 0.8 AST 22 ALT 43 Alkaline Phosphatase 78 NT-Pro-B Natriuret Pep 6880 H Total Protein 5.7 L Albumin 2.9 L Globulin 2.9 Albumin/Globulin Ratio 1.0 Cortisol AM Sample Arterial Blood Potassium 3.2 L Urine Color Urine Clarity Urine pH Ur Specific Harlan Urine Protein Urine Glucose (UA) Urine Ketones Urine Blood Urine Nitrate Urine Bilirubin Urine Urobilinogen Ur Leukocyte Esterase Urine WBC (Auto) Urine RBC (Auto) Ur Squamous Epith Cells Ur Random Sodium 01/25/17 01/25/17 01/25/17 20:26 21:32 22:49 WBC RBC Hgb Hct MCV MCH MCHC RDW Plt Count MPV Neut % (Auto) Lymph % (Auto) Lane % (Auto) Eos % (Auto) Baso % (Auto) Neut # Lymph # Lane # Eos # Baso # Neutrophils % (Manual) Band Neutrophils % Lymphocytes % (Manual) Monocytes % (Manual) Myelocytes % Nucleated RBC % Platelet Estimate PT 9.6 L INR 0.9 APTT 25 Puncture Site Rra pCO2 63 H pO2 64 L HCO3 26.7 ABG pH 7.29 L ABG Total CO2 32.2 H ABG O2 Saturation 94.5 L ABG Base Excess 2.5 ABG Hemoglobin 11.1 L ABG Carboxyhemoglobin 2.8 H POC ABG HHb (Measured) 5.3 H ABG Methemoglobin 1.3 Jose Maria Test Na ABG Potassium A-a O2 Difference 570.0 Respiratory Index 8.9 Hgb O2 Saturation 90.5 L Sodium Chloride Glucose Lactate Vent Mode Bipap Mechanical Rate 15 FiO2 100.0 Inspiratory BiPAP 14 Expiratory BiPAP 7 Crit Value Called To Crit Value Called By Crit Value Read Back Blood Gas Notified Time Potassium Carbon Dioxide Anion Gap BUN Creatinine Est GFR ( Amer) Est GFR (Non-Af Amer) POC Glucose (mg/dL) Random Glucose Calcium Total Bilirubin AST ALT Alkaline Phosphatase NT-Pro-B Natriuret Pep Total Protein Albumin Globulin Albumin/Globulin Ratio Cortisol AM Sample Arterial Blood Potassium Urine Color Straw Urine Clarity Clear Urine pH 7.0 Ur Specific Harlan 1.004 Urine Protein Negative Urine Glucose (UA) Normal Urine Ketones Negative Urine Blood 1+ H Urine Nitrate Negative Urine Bilirubin Negative Urine Urobilinogen Normal Ur Leukocyte Esterase Neg Urine WBC (Auto) 3 Urine RBC (Auto) 5 H Ur Squamous Epith Cells 2 Ur Random Sodium 01/26/17 01/26/17 01/26/17 02:25 03:23 03:23 WBC 3.5 L D RBC 3.69 L Hgb 11.9 Hct 35.5 MCV 96.1 MCH 32.2 H MCHC 33.5 RDW 16.3 H Plt Count 115 L D MPV 9.0 Neut % (Auto) 93.4 H Lymph % (Auto) 4.[address] % (Auto) 1.4 Eos % (Auto) 0.1 Baso % (Auto) 0.2 Neut # 3.2 Lymph # 0.[address] # 0[address]0 Eos # 0.0 Baso # 0.0 Neutrophils % (Manual) 58 Band Neutrophils % 36 H* Lymphocytes % (Manual) 5 L Monocytes % (Manual) 0 Myelocytes % 1 H Nucleated RBC % Platelet Estimate Decreased L PT INR APTT Puncture Site Rr pCO2 45 pO2 62 L HCO3 25.5 ABG pH 7.38 ABG Total CO2 28.0 ABG O2 Saturation 94.9 L ABG Base Excess 1.0 ABG Hemoglobin ABG Carboxyhemoglobin POC ABG HHb (Measured) ABG Methemoglobin Jose Maria Test Pos ABG Potassium 3.1 L A-a O2 Difference 381.0 Respiratory Index 6.1 Hgb O2 Saturation Sodium 140.0 Chloride 112.0 H Glucose 156 H Lactate 0.9 Vent Mode Bipap Mechanical Rate FiO2 70.0 Inspiratory BiPAP 13 Expiratory BiPAP 6 Crit Value Called To Crit Value Called By Crit Value Read Back Blood Gas Notified Time Potassium Carbon Dioxide Anion Gap BUN Creatinine Est GFR ( Amer) Est GFR (Non-Af Amer) POC Glucose (mg/dL) Random Glucose Calcium Total Bilirubin AST ALT Alkaline Phosphatase NT-Pro-B Natriuret Pep Total Protein Albumin Globulin Albumin/Globulin Ratio Cortisol AM Sample 19.9 Arterial Blood Potassium 3.1 L Urine Color Urine Clarity Urine pH Ur Specific [place] Urine Protein Urine Glucose (UA) Urine Ketones Urine Blood Urine Nitrate Urine Bilirubin Urine Urobilinogen Ur Leukocyte Esterase Urine WBC (Auto) Urine RBC (Auto) Ur Squamous Epith Cells Ur Random Sodium 01/26/17 01/26/17 03:23 07:53 WBC RBC Hgb Hct MCV MCH MCHC RDW Plt Count MPV Neut % (Auto) Lymph % (Auto) Lane % (Auto) Eos % (Auto) Baso % (Auto) Neut # Lymph # Lane # Eos # Baso # Neutrophils % (Manual) Band Neutrophils % Lymphocytes % (Manual) Monocytes % (Manual) Myelocytes % Nucleated RBC % Platelet Estimate PT INR APTT Puncture Site pCO2 pO2 HCO3 ABG pH ABG Total CO2 ABG O2 Saturation ABG Base Excess ABG Hemoglobin ABG Carboxyhemoglobin POC ABG HHb (Measured) ABG Methemoglobin Jose Maria Test ABG Potassium A-a O2 Difference Respiratory Index Hgb O2 Saturation Sodium Chloride Glucose Lactate Vent Mode Mechanical Rate FiO2 Inspiratory BiPAP Expiratory BiPAP Crit Value Called To Crit Value Called By Crit Value Read Back Blood Gas Notified Time Potassium Carbon Dioxide Anion Gap BUN Creatinine Est GFR ( Amer) Est GFR (Non-Af Amer) POC Glucose (mg/dL) 148 H Random Glucose Calcium Total Bilirubin AST ALT Alkaline Phosphatase NT-Pro-B Natriuret Pep Total Protein Albumin Globulin Albumin/Globulin Ratio Cortisol AM Sample Arterial Blood Potassium Urine Color Urine Clarity Urine pH Ur Specific [place] Urine Protein Urine Glucose (UA) Urine Ketones Urine Blood Urine Nitrate Urine Bilirubin Urine Urobilinogen Ur Leukocyte Esterase Urine WBC (Auto) Urine RBC (Auto) Ur Squamous Epith Cells Ur Random Sodium 115 EKG/Cardiology Studies: Cardiology / EKG Studies 01/25/17 19:45 EKG [ELECTROCARDIOGRAM] Stat Comment: Mode Of Transportation: STRETCHER Reason For Exam: AMS Fingerstick Blood Sugar Results: 244 Critical Care Progress Note - Nutrition Nutrition: Nutrition Category Date Time Status Consistent Carbohydrate [DIET] Diets 01/26/17 Breakfast Active
[2017-01-26] MEDS ORDERED: Modafinil 50 MG TAB PO SCH ×2 (10:00)
--- NOTE | 2017-01-26 11:21 | RAD ---
HISTORY: dyspnea, hypoxia COMPARISON: Comparison is made to 01/18/2017 FINDINGS: LUNGS: Heterogeneous opacities at the lung bases and lower lobes may represent atelectasis. Persistent moderate elevation of the right hemidiaphragm. PLEURA: No significant pleural effusion identified, no pneumothorax apparent. CARDIOVASCULAR: The cardiac silhouette is mildly enlarged. OSSEOUS STRUCTURES: No significant abnormalities. VISUALIZED UPPER ABDOMEN: Normal. OTHER FINDINGS: Right-sided PICC line is seen in place. IMPRESSION: Bilateral lower lobe heterogeneous opacities may represent atelectasis. Re- demonstration of moderate elevation of the right hemidiaphragm.
[2017-01-26] MEDS: Piperacillin/Tazobact 3.375 GM in Sodium Chloride 100 ML IVPB SCH ×2 (11:30→17:42)
--- NOTE | 2017-01-26 12:33 | CP.PCM.HP ---
History of Present Illness - History of Present Illness History of Present Illness: cc: lethargy, difficulty arousing from sleep HPI: Pt is a 76 yo [place] female, permanent resident [facility], who was just discharged last Saturday after a little over 2 weeks where she went into respiratory failure and septic shock on admission ry to pneumonia. Pt was on the ventilator 12 days and was discharged back to the [facility] on 01/22/2016. > I had been monitoring the patient closely since her discharge, and had briefed the nursing staff that should there be a change in her condition that I was to be notified immediately. NOD called yesterday around 6 pm and reported that pt was lethargic, difficult to arouse, and very weak. Knowing that at the very least she would have pulmonary issues if not more, I ordered her transfer back to [facility]. ABG on admission as per records, with a pH of 7.22 and PCO2 of 75 + mmHg. Pt subsequently placed on bipap, ICU consult obtained with further management to follow when pt stabilized. Pt now tolerating bipap and much more alert and awake than yesterday. Present on Admission - Present on Admission Any Indicators Present on Admission: Yes History of DVT/PE: Yes History of Uncontrolled Diabetes: No Urinary Catheter: Yes Decubitus Ulcer Present: Yes Review of Systems - Review of Systems Systems not reviewed;Unavailable: Altered Mental Status, Other (lethargic and unable to express herself fully yesterday) - Constitutional Constitutional: Anorexia, Fatigue, Weakness - EENT Eyes: Blurred Vision Ears: absent: As Per HPI, Decreased Hearing, Ear Discharge, Ear Pain, Tinnitus, Abnormal Hearing, Disequilibrium, Dizziness, Other Nose/Mouth/Throat: absent: As Per HPI, Epistaxis, Nasal Congestion, Nasal Discharge, Nasal Obstruction, Nasal Trauma, Nose Pain, Post Nasal Drip, Sinus Pain, Sinus Pressure, Bleeding Gums, Change in Voice, Dental Pain, Dry Mouth, Dysphagia, Halitosis, Hoarsness, Lip Swelling, Mouth Lesions, Mouth Pain, Odynophagia, Sore Throat, Throat Swelling, Tongue Swelling, Facial Pain, Neck Pain, Neck Mass, Other - Breasts Breasts: absent: As Per HPI, Change in Shape, Mass, Pain, Nipple Discharge, Nipple Inversion, Skin Changes, Swelling, Other - Cardiovascular Cardiovascular: absent: As Per HPI, Acrocyanosis, Chest Pain, Chest Pain at Rest , Chest Pain with Activity, Claudication, Diaphoresis, Dyspnea, Dyspnea on Exertion, Edema, Irregular Heart Rhythm, Pain Radiating to Arm/Neck/Jaw, Leg Edema, Leg Ulcers, Lightheadedness, Orthopnea, Palpitations, Paroxysmal Nocturnal Dyspnea, Pedal Edema, Radiating Pain, Rapid Heart Rate, Slow Heart Rate, Syncope, Other - Respiratory Respiratory: Excessive Mucous Production, Change in Mucous Color - Reproductive: Female Reproductive:Female: Amenorrhea Past Patient History - Infectious Disease Hx of Infectious Diseases: MRSA - Tetanus Immunizations Tetanus Immunization: Up to Date - Past Medical History & Family History Past Medical History?: Yes - Past Social History Smoking Status: Never Smoked Chewing Tobacco Use: No Alcohol: None Drugs: Denies Home Situation {Lives}: Senior Living Domestic Violence: Negative - CARDIAC Hx Cardiac Disorders: Yes Hx Angina: No Hx Atrial Fibrillation: No (resolved) Hx Cardia Arrhythmia: Yes Hx Congestive Heart Failure: No Hx Hypercholesterolemia: Yes Hx Hypertension: Yes Hx Mitral Valve Prolapse: No Hx Pacemaker: No Hx Peripheral Edema: Yes - PULMONARY Hx Respiratory Disorders: Yes Hx Asthma: Yes Hx Bronchitis: Yes Hx Chronic Obstructive Pulmonary Disease (COPD): Yes Hx Emphysema: No Hx Pneumonia: No Hx Pulmonary Embolism: Yes Hx Respiratory Tract Infection: Yes Hx Sleep Apnea: No - NEUROLOGICAL Hx Neurological Disorder: Yes Hx Alzheimer's Disease: No Hx Dementia: No Hx Migraine: No Hx Multiple Sclerosis: Yes Hx Parkinson's Disease: No Hx Seizures: No Hx Transient Ischemic Attacks (TIA): No Hx Vertigo: No - HEENT Hx HEENT Problems: Yes Hx Blind: No Hx Cataracts: Yes Hx Difficulty Chewing: No Hx Epistaxis: No Hx Glaucoma: No Hx Macular Degeneration: No Other/Comment: wears eyeglasses for reading - RENAL Hx Chronic Kidney Disease: Yes - ENDOCRINE/METABOLIC Hx Endocrine Disorders: No Hx Hyperthyroidism: No Hx Hypothyroidism: No Other/Comment: Osteoporosis/osteoppenia - HEMATOLOGICAL/ONCOLOGICAL Hx Blood Disorders: Yes Hx AIDS: No Hx Anemia: Yes Hx Blood Transfusions: Yes Hx Blood Transfusion Reaction: No - INTEGUMENTARY Hx Dermatological Problems: Yes Hx Eczema: Yes Hx Melanoma: No Hx Psoriasis: No Hx Squamous Cell: No Other/Comment: > hx of garvin hong syndrome, unknown precipitant. > hx of bullous pemphigoid - MUSCULOSKELETAL/RHEUMATOLOGICAL Hx Arthritis: Yes Hx Falls: Yes Hx Fractures: No Hx Osteoporosis: Yes Hx Rheumatoid Arthritis: Yes - GASTROINTESTINAL Hx Gastrointestinal Disorders: Yes Hx Constipation: Yes - GENITOURINARY/GYNECOLOGICAL Hx Genitourinary Disorders: Yes Hx Incontinence: Yes Other/Comment: wears a diaper in the [facility] (as with all patients) - PSYCHIATRIC Hx Psychophysiologic Disorder: Yes Hx Anxiety: Yes Hx Depression: Yes Hx Substance Use: No - SURGICAL HISTORY Hx Surgeries: Yes Other/Comment: IVC filter 5-6 years ago for b/l DVT - ANESTHESIA Hx Anesthesia: Yes Hx Anesthesia Reactions: No Hx Malignant Hyperthermia: No Has any member of the family had a problem w/ anesthesia?: No Meds Allergies/Adverse Reactions: Allergies Allergy/AdvReac Type Severity Reaction Status Date / Time ascorbic acid Allergy Severe ANAPHYLAXIS Verified 01/25/17 19:38 aspirin Allergy RASH Verified 01/25/17 19:38 iodine Allergy RASH Verified 01/25/17 19:38 Ponds cream Allergy Severe ANAPHYLAXIS Uncoded 05/07/16 00:13 Physical Exam - Constitutional Appears: In Acute Distress Additional comments: on bipap - Head Exam Head Exam: NORMAL INSPECTION, NORMOCEPHALIC - Eye Exam Eye Exam: Normal appearance Pupil Exam: NORMAL ACCOMODATION - ENT Exam ENT Exam: Mucous Membranes Moist, Normal Exam - Neck Exam Neck exam: Positive for: Normal Inspection - Respiratory Exam Respiratory Exam: Accessory Muscle Use, Clear to Auscultation Bilateral, NORMAL BREATHING PATTERN - Cardiovascular Exam Cardiovascular Exam: REGULAR RHYTHM - GI/Abdominal Exam GI & Abdominal Exam: Diminished Bowel Sounds - Rectal Exam Rectal Exam: Deferred - Exam Additional comments: + drew catheter - Back Exam Back exam: NORMAL INSPECTION - Neurological Exam Neurological exam: CN II-XII Intact, Reflexes Normal - Psychiatric Exam Psychiatric exam: Normal Affect, Normal Mood - Skin Skin Exam: Dry, Intact, Normal Color, Warm Results - Vital Signs Recent Vital Signs: Last Vital Signs Temp 98.6 F 01/26/17 07:00 Pulse 127 H 01/26/17 11:30 Resp 12 01/26/17 07:36 BP 99/72 L 01/26/17 07:36 Pulse Ox 98 01/26/17 07:36 - Labs Result Diagrams: 01/26/17 03:23 01/25/17 20:26 Labs: Laboratory Results - last 24 hr 01/25/17 01/25/17 01/25/17 20:25 20:26 20:26 WBC 7.3 RBC 3.80 Hgb 12.5 D Hct 36.7 MCV 96.4 D MCH 32.7 H MCHC 34.0 RDW 16.3 H Plt Count 147 D MPV 9.0 Neut % (Auto) 94.2 H Lymph % (Auto) 2.[address] [facility] % (Auto) 2.0 Eos % (Auto) 0.0 Baso % (Auto) 1.3 Neut # 6.8 Lymph # 0.[address] [facility] # 0.1 Eos # 0.0 Baso # 0.1 Neutrophils % (Manual) 90 H Band Neutrophils % 7 H Lymphocytes % (Manual) 2 L Monocytes % (Manual) 1 Myelocytes % Nucleated RBC % 1 H Platelet Estimate Normal PT INR APTT Puncture Site Rra pCO2 78 H* pO2 70 L HCO3 26.1 ABG pH 7.22 L ABG Total CO2 34.3 H ABG O2 Saturation 94.7 L ABG Base Excess 1.8 ABG Hemoglobin ABG Carboxyhemoglobin POC ABG HHb (Measured) ABG Methemoglobin Jose Maria Test Na ABG Potassium 3.2 L A-a O2 Difference 546.0 Respiratory Index 7.8 Hgb O2 Saturation Sodium 138.0 133 Chloride 104.0 98 Glucose 264 H Lactate 1.1 Vent Mode Mechanical Rate FiO2 100.0 Inspiratory BiPAP Expiratory BiPAP Crit Value Called To Dr. george imm Crit Value Called By Meet rt Crit Value Read Back Y Blood Gas Notified Time 2027 Potassium 3.2 L Carbon Dioxide 30 Anion Gap 9 L BUN 14 Creatinine 0.7 Est GFR ( Amer) > 60 Est GFR (Non-Af Amer) > 60 POC Glucose (mg/dL) Random Glucose 244 H Calcium 7.5 L Total Bilirubin 0.8 AST 22 ALT 43 Alkaline Phosphatase 78 NT-Pro-B Natriuret Pep 6880 H Total Protein 5.7 L Albumin 2.9 L Globulin 2.9 Albumin/Globulin Ratio 1.0 Cortisol AM Sample Arterial Blood Potassium 3.2 L Urine Color Urine Clarity Urine pH Ur Specific [place] Urine Protein Urine Glucose (UA) Urine Ketones Urine Blood Urine Nitrate Urine Bilirubin Urine Urobilinogen Ur Leukocyte Esterase Urine WBC (Auto) Urine RBC (Auto) Ur Squamous Epith Cells Ur Random Sodium 01/25/17 01/25/17 01/25/17 20:26 21:32 22:49 WBC RBC Hgb Hct MCV MCH MCHC RDW Plt Count MPV Neut % (Auto) Lymph % (Auto) [facility] % (Auto) Eos % (Auto) Baso % (Auto) Neut # Lymph # [facility] # Eos # Baso # Neutrophils % (Manual) Band Neutrophils % Lymphocytes % (Manual) Monocytes % (Manual) Myelocytes % Nucleated RBC % Platelet Estimate PT 9.6 L INR 0.9 APTT 25 Puncture Site Rra pCO2 63 H pO2 64 L HCO3 26.7 ABG pH 7.29 L ABG Total CO2 32.2 H ABG O2 Saturation 94.5 L ABG Base Excess 2.5 ABG Hemoglobin 11.1 L ABG Carboxyhemoglobin 2.8 H POC ABG HHb (Measured) 5.3 H ABG Methemoglobin 1.3 Jose Maria Test Na ABG Potassium A-a O2 Difference 570.0 Respiratory Index 8.9 Hgb O2 Saturation 90.5 L Sodium Chloride Glucose Lactate Vent Mode Bipap Mechanical Rate 15 FiO2 100.0 Inspiratory BiPAP 14 Expiratory BiPAP 7 Crit Value Called To Crit Value Called By Crit Value Read Back Blood Gas Notified Time Potassium Carbon Dioxide Anion Gap BUN Creatinine Est GFR ( Amer) Est GFR (Non-Af Amer) POC Glucose (mg/dL) Random Glucose Calcium Total Bilirubin AST ALT Alkaline Phosphatase NT-Pro-B Natriuret Pep Total Protein Albumin Globulin Albumin/Globulin Ratio Cortisol AM Sample Arterial Blood Potassium Urine Color Straw Urine Clarity Clear Urine pH 7.0 Ur Specific [place] 1.004 Urine Protein Negative Urine Glucose (UA) Normal Urine Ketones Negative Urine Blood 1+ H Urine Nitrate Negative Urine Bilirubin Negative Urine Urobilinogen Normal Ur Leukocyte Esterase Neg Urine WBC (Auto) 3 Urine RBC (Auto) 5 H Ur Squamous Epith Cells 2 Ur Random Sodium 01/26/17 01/26/17 01/26/17 02:25 03:23 03:23 WBC 3.5 L D RBC 3.69 L Hgb 11.9 Hct 35.5 MCV 96.1 MCH 32.2 H MCHC 33.5 RDW 16.3 H Plt Count 115 L D MPV 9.0 Neut % (Auto) 93.4 H Lymph % (Auto) 4.[address] [facility] % (Auto) 1.4 Eos % (Auto) 0.1 Baso % (Auto) 0.2 Neut # 3.2 Lymph # 0.[address] [facility] # 0.0 Eos # 0.0 Baso # 0.0 Neutrophils % (Manual) 58 Band Neutrophils % 36 H* Lymphocytes % (Manual) 5 L Monocytes % (Manual) 0 Myelocytes % 1 H Nucleated RBC % Platelet Estimate Decreased L PT INR APTT Puncture Site Rr pCO2 45 pO2 62 L HCO3 25.5 ABG pH 7.38 ABG Total CO2 28.0 ABG O2 Saturation 94.9 L ABG Base Excess 1.0 ABG Hemoglobin ABG Carboxyhemoglobin POC ABG HHb (Measured) ABG Methemoglobin Jose Maria Test Pos ABG Potassium 3.1 L A-a O2 Difference 381.0 Respiratory Index 6.1 Hgb O2 Saturation Sodium 140.0 Chloride 112.0 H Glucose 156 H Lactate 0.9 Vent Mode Bipap Mechanical Rate FiO2 70.0 Inspiratory BiPAP 13 Expiratory BiPAP 6 Crit Value Called To Crit Value Called By Crit Value Read Back Blood Gas Notified Time Potassium Carbon Dioxide Anion Gap BUN Creatinine Est GFR ( Amer) Est GFR (Non-Af Amer) POC Glucose (mg/dL) Random Glucose Calcium Total Bilirubin AST ALT Alkaline Phosphatase NT-Pro-B Natriuret Pep Total Protein Albumin Globulin Albumin/Globulin Ratio Cortisol AM Sample 19.9 Arterial Blood Potassium 3.1 L Urine Color Urine Clarity Urine pH Ur Specific [place] Urine Protein Urine Glucose (UA) Urine Ketones Urine Blood Urine Nitrate Urine Bilirubin Urine Urobilinogen Ur Leukocyte Esterase Urine WBC (Auto) Urine RBC (Auto) Ur Squamous Epith Cells Ur Random Sodium 01/26/17 01/26/17 01/26/17 03:23 07:53 11:11 WBC RBC Hgb Hct MCV MCH MCHC RDW Plt Count MPV Neut % (Auto) Lymph % (Auto) [facility] % (Auto) Eos % (Auto) Baso % (Auto) Neut # Lymph # [facility] # Eos # Baso # Neutrophils % (Manual) Band Neutrophils % Lymphocytes % (Manual) Monocytes % (Manual) Myelocytes % Nucleated RBC % Platelet Estimate PT INR APTT Puncture Site pCO2 pO2 HCO3 ABG pH ABG Total CO2 ABG O2 Saturation ABG Base Excess ABG Hemoglobin ABG Carboxyhemoglobin POC ABG HHb (Measured) ABG Methemoglobin Jose Maria Test ABG Potassium A-a O2 Difference Respiratory Index Hgb O2 Saturation Sodium Chloride Glucose Lactate Vent Mode Mechanical Rate FiO2 Inspiratory BiPAP Expiratory BiPAP Crit Value Called To Crit Value Called By Crit Value Read Back Blood Gas Notified Time Potassium Carbon Dioxide Anion Gap BUN Creatinine Est GFR ( Amer) Est GFR (Non-Af Amer) POC Glucose (mg/dL) 148 H 114 H Random Glucose Calcium Total Bilirubin AST ALT Alkaline Phosphatase NT-Pro-B Natriuret Pep Total Protein Albumin Globulin Albumin/Globulin Ratio Cortisol AM Sample Arterial Blood Potassium Urine Color Urine Clarity Urine pH Ur Specific [place] Urine Protein Urine Glucose (UA) Urine Ketones Urine Blood Urine Nitrate Urine Bilirubin Urine Urobilinogen Ur Leukocyte Esterase Urine WBC (Auto) Urine RBC (Auto) Ur Squamous Epith Cells Ur Random Sodium 115 - EKG Data EKG Interpreted by: Other (none obtained) Assessment & Plan (1) Respiratory distress Assessment and Plan: respiratory insufficiency: usually occurs when pt is sleeping. In the previoius admission, may have been 2ndry to pneumonia. In this instance may have been that pt was extubated too quickly and pt did not have enough strength to breathe at night, thereby developing fatigue. Could also be an indication that her MS is progressing. Will provide slow wean from bipap and encourage incentive spiromentry to srengthen respiratory muscles Status: Acute Priority: High (2) Altered mental status Assessment and Plan: 2ndry to derangement of pt's acid base balance; correcting Status: Acute Priority: Medium (3) Bandemia without diagnosis of specific infection Assessment and Plan: may be 2ndry to stress Status: Acute Priority: Medium (4) Hypertension Assessment and Plan: stable Status: Acute Priority: Medium (5) Hypocalcemia Assessment and Plan: will replete Status: Acute Priority: Medium - Assessment and Plan (Free Text) Assessment: 1. respiratory insufficiency: usually occurs when pt is sleeping. In the previoius admission, may have been 2ndry to pneumonia. In this instance may have been that pt was extubated too quickly and pt did not have enough strength to breathe at night, thereby developing fatigue. Could also be an indication that her MS is progressing. Will provide slow wean from bipap and encourage incentive spiromentry to srengthen respiratory muscles Decision To Admit - Pt Status Changed To: Hospital Disposition Of: Inpatient - Admit Certification Admit to Inpatient:: After my assessment, the patient will require hospitalization for at least two midnights. This is because of the severity of symptoms shown, intensity of services needed, and/or the medical risk in this patient being treated as an outpatient. - InPatient: Physician Admission Certification:: After my assessment, the patient will require hospitalization for at least two midnights. This is because of the severity of symptoms shown, intensity of services needed, and/or the medical risk in this patient being treated as an outpatient. - . Bed Request Type: ICU
[2017-01-26] MEDS: Albuterol 0.083% Inhal Sol (2.5 mg/3 mL) UD INH SCH ×2 (16:22→20:21)
--- NOTE | 2017-01-26 16:59 | RAD ---
HISTORY: Pneumonia. COMPARISON: Multiple serial examinations preceding the most recent study: January 25, 2017. FINDINGS: LUNGS: Stable lower lobe infiltrates. PLEURA: No significant pleural effusion identified, no pneumothorax apparent. CARDIOVASCULAR: Cardiomegaly. No evidence of acute, significant cardiovascular disease. PICC line in satisfactory position OSSEOUS STRUCTURES: No significant abnormalities. VISUALIZED UPPER ABDOMEN: Normal. OTHER FINDINGS: None. IMPRESSION: No significant interval change compared to the prior examination(s).
[2017-01-27] MEDS: Albuterol 0.083% Inhal Sol (2.5 mg/3 mL) UD INH SCH ×7 (00:28→23:35)
[2017-01-27] MEDS: Sucralfate 1 gm/10 ml Oral Susp UD PO SCH ×5 (00:51→23:32)
[2017-01-27] MEDS: Piperacillin/Tazobact 3.375 GM in Sodium Chloride 100 ML IVPB SCH ×3 (02:00→17:45)
[2017-01-27 06:22] LABS: BASO % 0.3 % (0.0-2.0); EOS % 0.4 % (0.0-4.0); HEMATOCRIT 29.1 % (34.0-47.0); LYMPH # 0.2 K/uL (1.0-4.3); LYMPH % 3.2 % (20.0-40.0); MEAN CELL VOLUME 96.7 fL (81.0-99.0); MEAN CORPUSCULAR HEMOGLOBIN 32.6 pg (27.0-31.0); MEAN CORPUSCULAR HGB CONC 33.8 g/dL (33.0-37.0); MEAN PLATELET VOLUME 9.9 fL (7.2-11.7); MONO # 0.2 K/uL (0.0-0.8); MONO % 2.1 % (0.0-10.0); NRBC % 0.3 % (0.0-2.0); PLATELET COUNT 101 K/uL (130-400); WHITE BLOOD COUNT 7.2 K/uL (4.8-10.8)
[2017-01-27 06:41] LABS: CHLORIDE 108 mmol/L (98-107); POTASSIUM 3.1 mmol/L (3.6-5.2); SODIUM 138 mmol/L (132-148)
[2017-01-27 06:43] LABS: ALB/GLOB RATIO 0.8 (1.0-2.1); ALKALINE PHOSPHATASE 63 U/L (38-126); AST/SGOT 18 U/L (14-36); BILIRUBIN,TOTAL 0.7 mg/dL (0.2-1.3); CARBON DIOXIDE 27 mmol/L (22-30); GFR AFRICAN-AMERICAN > 60
[2017-01-27 06:44] LABS: ALT/SGPT 36 U/L (9-52); BLOOD UREA NITROGEN 12 mg/dL (7-17); CALCIUM 7.2 mg/dl (8.6-10.4); GLUCOSE,RANDOM 92 mg/dL (65-105); MAGNESIUM 1.7 mg/dL (1.6-2.3)
[2017-01-27] MEDS: Pantoprazole 40 mg Susp UD PO SCH (07:09)
[2017-01-27] MEDS ORDERED: Potassium Phosphate 15 MMOLE in Sodium Chloride 0.9% 250 ML IVPB ONE (10:00)
[2017-01-27 10:28] LABS: NEUTROPHIL 68 % (50-75); TOTAL CELLS COUNTED 100
--- NOTE | 2017-01-27 12:40 | CP.CCUPN ---
CCU Subjective - Physician Review Events Since Last Encounter (Free Text): 01/27/17 12:40 Patient did today was doing well. But after on nasal cannula for some time become more week, and also very anxious. Accessory muscle noted. Immediately placed on BiPAP. Patient is awake and responding otherwise. Weakness noted. Patient cough reflex is very poor She denies any chest pain. Patient is refusing to have a chest x-ray today. I asked the patient regarding the ventilator, but currently she is refusing. With respect to the patient's daughter today. On examination: Chest decreased air entry on the right side, left side is much better. Regular heart sound. Nontender abdomen. Edema noted Labs reviewed Elevated bands noted. Yesterday x-ray showing evidence of right lower lung pneumonia. Patient is able to produce thick mucus Assessment and recommendation: 76-year-old female with a history of chronic respiratory failure. Multiple sclerosis. Mostly bedridden. Now admitted with worsening right-sided lower lung pneumonia, acute respiratory failure on chronic. Needing BiPAP at this time. We'll continue to monitor. An antibiotic. And will follow the patient CCU Objective - Vital Signs / Intake & Output Vital Signs (Last 4 hours): Vital Signs Pulse Resp BP Pulse Ox 01/27/17 11:35 114 H 14 95/48 L 99 01/27/17 11:00 115 H 26 H 99 01/27/17 10:35 86/47 L 01/27/17 10:34 106 H 23 95 01/27/17 09:35 123 H 22 98/42 L 93 L 01/27/17 09:30 120 H 24 92 L 01/27/17 09:00 107 H 25 H 96 Intake and Output (Last 8hrs): Intake & Output 01/26/17 01/27/17 01/27/17 22:59 06:59 14:59 Intake Total 700 520 750 Output Total 245 225 155 Balance 455 295 595 Weight 152 lb 12.485 oz Intake: Intake, IV Amount 520 520 530 Right Upper arm 520 520 530 Oral 180 220 Output: Urine 245 225 155 Urethral ([place]) 245 225 155 Other: # Bowel Movements 1 0 1 - Medications Active Medications: Active Medications Generic Name Dose Route Start Last Admin Trade Name Freq PRN Reason Stop Dose Admin Albuterol Sulfate 2.5 mg 01/26/17 16:00 01/27/17 07:56 Albuterol 0.083% Inhal Jeri (2.5 Mg/3 Ml) Ud INH 2.5 mg RQ4 RAUL Administration Albuterol/Ipratropium 3 ml 01/26/17 02:00 01/26/17 07:39 Duoneb 3 Mg/0.5 Mg (3 Ml) Ud INH 3 ml RQ6 RAUL Administration Budesonide 0.5 mg 01/26/17 08:00 01/26/17 20:20 Pulmicort Respules INH 0.5 mg RQ12 RAUL Administration Heparin Sodium (Porcine) 5,000 units 01/26/17 01:15 01/27/17 00:55 Heparin SC 5,000 units Q12H RAUL Administration Vancomycin HCl 1 gm/ Sodium 250 mls @ 166.7 mls/hr 01/26/17 11:00 01/27/17 10 :28 Chloride IVPB 166.7 mls/hr Q24H RAUL Administration Piperacillin Sod/Tazobactam 100 mls @ 200 mls/hr 01/26/17 10:30 01/27/17 09: 48 Sod 3.375 gm/ Sodium Chloride IVPB 200 mls/hr Q8H RAUL Administration Potassium Chloride 40 meq/ 1,020 mls @ 60 mls/hr 01/26/17 11:45 01/27/17 05: 10 Sodium Chloride IV Not Given .Q17H RAUL Potassium Phosphate 15 mmole/ 255 mls @ 42.5 mls/hr 01/27/17 10:00 01/27/17 10:31 Sodium Chloride IVPB 01/27/17 15:59 42.5 mls/hr ONCE ONE Administration Pantoprazole Sodium 40 mg 01/26/17 06:00 01/27/17 07:09 Protonix Susp PO 40 mg 0600 RAUL Administration Rosuvastatin Calcium 5 mg 01/26/17 22:00 01/26/17 22:26 Crestor PO 5 mg HS RAUL Administration Sucralfate 1 gm 01/26/17 06:00 01/27/17 11:11 Carafate Oral Susp PO 1 gm Q6 RAUL Administration - Patient Studies Lab Studies: Microbiology Studies 01/25/17 21:10 Blood Culture - Preliminary Blood-Venous NO GROWTH AFTER 24 HOURS 01/25/17 20:20 Blood Culture - Preliminary Blood-Venous NO GROWTH AFTER 24 HOURS 10/06/17 22:52 Urine Culture - Final Urine,Clean Catch No Growth (<1,000 CFU/ML) Lab Studies 01/27/17 01/27/17 01/27/17 Range/Units 11:59 07:19 06:12 WBC (4.8-10.8) K/uL RBC (3.80-5.20) Mil/uL Hgb (11.0-16.0) g/dL Hct (34.0-47.0) % MCV (81.0-99.0) fL MCH (27.0-31.0) pg MCHC (33.0-37.0) g/dL RDW (11.5-14.5) % Plt Count (130-400) K/uL MPV (7.2-11.7) fL Neut % (Auto) (50.0-75.0) % Lymph % (Auto) (20.0-40.0) % [place] % (Auto) (0.0-10.0) % Eos % (Auto) (0.0-4.0) % Baso % (Auto) (0.0-2.0) % Neut # (1.8-7.0) K/uL Lymph # (1.0-4.3) K/uL [place] # (0.0-0.8) K/uL Eos # (0.0-0.7) K/uL Baso # (0.0-0.2) K/uL Neutrophils % (Manual) (50-75) % Band Neutrophils % (0-2) % Lymphocytes % (Manual) Monocytes % (Manual) (0-10) % Platelet Estimate (NORMAL) Polychromasia Anisocytosis (manual) Sodium 138 (132-148) mmol/L Potassium 3.1 L (3.6-5.2) mmol/L Chloride 108 H (98-107) mmol/L Carbon Dioxide 27 (22-30) mmol/L Anion Gap 7 L (10-20) BUN 12 (7-17) mg/dL Creatinine 0.5 L (0.7-1.2) mg/dL Est GFR ( Amer) > 60 Est GFR (Non-Af Amer) > 60 POC Glucose (mg/dL) 136 H 113 H (65-110) mg/dL Random Glucose 92 (65-105) mg/dL Calcium 7.2 L (8.6-10.4) mg/dl Phosphorus 2.0 L (2.5-4.5) mg/dL Magnesium 1.7 (1.6-2.3) mg/dL Total Bilirubin 0.7 (0.2-1.3) mg/dL AST 18 (14-36) U/L ALT 36 (9-52) U/L Alkaline Phosphatase 63 (38-126) U/L Total Protein 5.0 L (6.3-8.3) g/dL Albumin 2.1 L D (3.5-5.0) g/dL Globulin 2.8 (2.2-3.9) gm/dL Albumin/Globulin Ratio 0.8 L (1.0-2.1) Procalcitonin (0.19-0.49) NG/ML 01/27/17 01/26/17 01/26/17 Range/Units 06:12 21:17 16:28 WBC 7.2 D (4.8-10.8) K/uL RBC 3.01 L (3.80-5.20) Mil/uL Hgb 9.8 L D (11.0-16.0) g/dL Hct 29.1 L (34.0-47.0) % MCV 96.7 (81.0-99.0) fL MCH 32.6 H (27.0-31.0) pg MCHC 33.8 (33.0-37.0) g/dL RDW 18.0 H (11.5-14.5) % Plt Count 101 L (130-400) K/uL MPV 9.9 (7.2-11.7) fL Neut % (Auto) 94.0 H (50.0-75.0) % Lymph % (Auto) 3.2 L (20.0-40.0) % [place] % (Auto) 2.1 (0.0-10.0) % Eos % (Auto) 0.4 (0.0-4.0) % Baso % (Auto) 0.3 (0.0-2.0) % Neut # 6.8 (1.8-7.0) K/uL Lymph # 0.2 L (1.0-4.3) K/uL [place] # 0.2 (0.0-0.8) K/uL Eos # 0.0 (0.0-0.7) K/uL Baso # 0.0 (0.0-0.2) K/uL Neutrophils % (Manual) 68 (50-75) % Band Neutrophils % 31 H* (0-2) % Lymphocytes % (Manual) TEST NOT PERFORMED Monocytes % (Manual) 1 (0-10) % Platelet Estimate Slightly decreased L (NORMAL) Polychromasia Slight Anisocytosis (manual) Slight Sodium (132-148) mmol/L Potassium (3.6-5.2) mmol/L Chloride (98-107) mmol/L Carbon Dioxide (22-30) mmol/L Anion Gap (10-20) BUN (7-17) mg/dL Creatinine (0.7-1.2) mg/dL Est GFR ( Amer) Est GFR (Non-Af Amer) POC Glucose (mg/dL) 89 116 H (65-110) mg/dL Random Glucose (65-105) mg/dL Calcium (8.6-10.4) mg/dl Phosphorus (2.5-4.5) mg/dL Magnesium (1.6-2.3) mg/dL Total Bilirubin (0.2-1.3) mg/dL AST (14-36) U/L ALT (9-52) U/L Alkaline Phosphatase (38-126) U/L Total Protein (6.3-8.3) g/dL Albumin (3.5-5.0) g/dL Globulin (2.2-3.9) gm/dL Albumin/Globulin Ratio (1.0-2.1) Procalcitonin (0.19-0.49) NG/ML 01/26/17 Range/Units 03:23 WBC (4.8-10.8) K/uL RBC (3.80-5.20) Mil/uL Hgb (11.0-16.0) g/dL Hct (34.0-47.0) % MCV (81.0-99.0) fL MCH (27.0-31.0) pg MCHC (33.0-37.0) g/dL RDW (11.5-14.5) % Plt Count (130-400) K/uL MPV (7.2-11.7) fL Neut % (Auto) (50.0-75.0) % Lymph % (Auto) (20.0-40.0) % [place] % (Auto) (0.0-10.0) % Eos % (Auto) (0.0-4.0) % Baso % (Auto) (0.0-2.0) % Neut # (1.8-7.0) K/uL Lymph # (1.0-4.3) K/uL [place] # (0.0-0.8) K/uL Eos # (0.0-0.7) K/uL Baso # (0.0-0.2) K/uL Neutrophils % (Manual) (50-75) % Band Neutrophils % (0-2) % Lymphocytes % (Manual) Monocytes % (Manual) (0-10) % Platelet Estimate (NORMAL) Polychromasia Anisocytosis (manual) Sodium (132-148) mmol/L Potassium (3.6-5.2) mmol/L Chloride (98-107) mmol/L Carbon Dioxide (22-30) mmol/L Anion Gap (10-20) BUN (7-17) mg/dL Creatinine (0.7-1.2) mg/dL Est GFR ( Amer) Est GFR (Non-Af Amer) POC Glucose (mg/dL) (65-110) mg/dL Random Glucose (65-105) mg/dL Calcium (8.6-10.4) mg/dl Phosphorus (2.5-4.5) mg/dL Magnesium (1.6-2.3) mg/dL Total Bilirubin (0.2-1.3) mg/dL AST (14-36) U/L ALT (9-52) U/L Alkaline Phosphatase (38-126) U/L Total Protein (6.3-8.3) g/dL Albumin (3.5-5.0) g/dL Globulin (2.2-3.9) gm/dL Albumin/Globulin Ratio (1.0-2.1) Procalcitonin 1.02 H (0.19-0.49) NG/ML Laboratory Results - last 24 hr 01/26/17 01/26/17 01/26/17 03:23 16:28 21:17 WBC RBC Hgb Hct MCV MCH MCHC RDW Plt Count MPV Neut % (Auto) Lymph % (Auto) [place] % (Auto) Eos % (Auto) Baso % (Auto) Neut # Lymph # [place] # Eos # Baso # Neutrophils % (Manual) Band Neutrophils % Lymphocytes % (Manual) Monocytes % (Manual) Platelet Estimate Polychromasia Anisocytosis (manual) Sodium Potassium Chloride Carbon Dioxide Anion Gap BUN Creatinine Est GFR ( Amer) Est GFR (Non-Af Amer) POC Glucose (mg/dL) 116 H 89 Random Glucose Calcium Phosphorus Magnesium Total Bilirubin AST ALT Alkaline Phosphatase Total Protein Albumin Globulin Albumin/Globulin Ratio Procalcitonin 1.02 H 01/27/17 01/27/17 01/27/17 06:12 06:12 07:19 WBC 7.2 D RBC 3.01 L Hgb 9.8 L D Hct 29.1 L MCV 96.7 MCH 32.6 H MCHC 33.8 RDW 18.0 H Plt Count 101 L MPV 9.9 Neut % (Auto) 94.0 H Lymph % (Auto) 3.2 L [place] % (Auto) 2.1 Eos % (Auto) 0.4 Baso % (Auto) 0.3 Neut # 6.8 Lymph # 0.2 L [place] # 0.2 Eos # 0.0 Baso # 0.0 Neutrophils % (Manual) 68 Band Neutrophils % 31 H* Lymphocytes % (Manual) TEST NOT PERFORMED Monocytes % (Manual) 1 Platelet Estimate Slightly decreased L Polychromasia Slight Anisocytosis (manual) Slight Sodium 138 Potassium 3.1 L Chloride 108 H Carbon Dioxide 27 Anion Gap 7 L BUN 12 Creatinine 0.5 L Est GFR ( Amer) > 60 Est GFR (Non-Af Amer) > 60 POC Glucose (mg/dL) 113 H Random Glucose 92 Calcium 7.2 L Phosphorus 2.0 L Magnesium 1.7 Total Bilirubin 0.7 AST 18 ALT 36 Alkaline Phosphatase 63 Total Protein 5.0 L Albumin 2.1 L D Globulin 2.8 Albumin/Globulin Ratio 0.8 L Procalcitonin 01/27/17 11:59 WBC RBC Hgb Hct MCV MCH MCHC RDW Plt Count MPV Neut % (Auto) Lymph % (Auto) [place] % (Auto) Eos % (Auto) Baso % (Auto) Neut # Lymph # [place] # Eos # Baso # Neutrophils % (Manual) Band Neutrophils % Lymphocytes % (Manual) Monocytes % (Manual) Platelet Estimate Polychromasia Anisocytosis (manual) Sodium Potassium Chloride Carbon Dioxide Anion Gap BUN Creatinine Est GFR ( Amer) Est GFR (Non-Af Amer) POC Glucose (mg/dL) 136 H Random Glucose Calcium Phosphorus Magnesium Total Bilirubin AST ALT Alkaline Phosphatase Total Protein Albumin Globulin Albumin/Globulin Ratio Procalcitonin Fingerstick Blood Sugar Results: 244 Critical Care Progress Note - Nutrition Nutrition: Nutrition Category Date Time Status Consistent Carbohydrate [DIET] Diets 01/26/17 Breakfast Active
[2017-01-27] MEDS: Budesonide 0.5 mg/2 ml Inhal Susp UD INH SCH ×2 (14:50→19:19)
--- NOTE | 2017-01-27 15:47 | CP.PCM.CON ---
History of Present Illness - History of Present Illness History of Present Illness: 76 y/o F sent from [facility] for lethargy. Patient was recently admitted to this hospital approximately 2 weeks ago for hypercapneic respiratory failure, pneumonia, and sepsis Recently discharged and now readmitted to ICU with worsening pneumonia RLL According to previous notes, patient was alert prior to discharge. According to transfer papers, patient lethargic, hypotensive , tachycardic, with hypoxia down to 61%. - Medical History PMH: Anemia, Anxiety, Arthritis, Cardia Arrhythmia, COPD, Depression, HTN, Hyperlipidemia, Multiple Sclerosis, Osteoporosis, Peripheral Edema, Pulmonary Embolism, Chronic Kidney Disease, Rheumatoid Arthritis Denies: Alzheimer's Disease, Asthma, Atrial Fibrillation, Bronchitis, CHF, Dementia, Emphysema, Fractures, HIV, Hyperthyroidism, Hypothyroidism, Kidney Stones, Migraine, Mitral Valve Prolapse, Parkinson's Disease, Pneumonia, Seizures, Sleep Apnea, TIA Surgical History: Denies: Pacemaker - [facility] Procedures ASSISTANCE WITH RESPIRATORY VENTILATION, 24-96 HRS, CPAP (01/07/17) EXCISION OF DUODENUM, ENDO, DIAGN (01/07/17) EXCISION OF STOMACH, ENDO (01/07/17) EXCISION OF STOMACH, ENDO, DIAGN (01/07/17) EXCISION OF TOE NAIL, EXTERNAL APPROACH (05/06/16) INSERT INFUSION DEV IN R INT JUGULAR VEIN, PERC (07/31/15) INSERTION OF ENDOTRACHEAL AIRWAY INTO TRACHEA, VIA OPENING (01/07/17) INSERTION OF INFUSION DEV INTO SUP VENA CAVA, PERC APPROACH (01/07/17) INTRODUCE OF OTH ANTI-INFECT INTO PERIPH VEIN, PERC APPROACH (07/31/15) INTRODUCTION OF VASOPRESSOR INTO PERIPH VEIN, PERC APPROACH (05/06/16) REMOVAL OF INFUSION DEVICE FROM UPPER VEIN, REHABILITATION COUNSELLOR APPROACH (01/07/17) RESPIRATORY VENTILATION, GREATER THAN 96 CONSECUTIVE HOURS (01/07/17) TRANSFUSE NONAUT FROZEN PLASMA IN PERIPH VEIN, PERC (07/31/15) TRANSFUSE NONAUT RED BLOOD CELLS IN PERIPH VEIN, PERC (01/07/17) ULTRASONOGRAPHY OF RIGHT JUGULAR VEINS, GUIDANCE (07/31/15) ULTRASONOGRAPHY OF SUPERIOR VENA CAVA, GUIDANCE (01/07/17) Review of Systems - Review of Systems Systems not reviewed;Unavailable: Altered Mental Status - Constitutional Constitutional: As Per HPI - EENT Eyes: absent: As Per HPI, Blind Spots, Blurred Vision, Change in Vision, Decreased Night Vision, Diplopia, Discharge, Dry Eye, Exophthalmos, Floaters, Irritation, Itchy Eyes, Loss of Peripheral Vision, Pain, Photophobia, Requires Corrective Lenses, Sees Flashes, Spots in Vision, Tunnel Vision, Other Visual Disturbances, Loss of Vision, Other Ears: absent: As Per HPI, Decreased Hearing, Ear Discharge, Ear Pain, Tinnitus, Abnormal Hearing, Disequilibrium, Dizziness, Other Nose/Mouth/Throat: absent: As Per HPI, Epistaxis, Nasal Congestion, Nasal Discharge, Nasal Obstruction, Nasal Trauma, Nose Pain, Post Nasal Drip, Sinus Pain, Sinus Pressure, Bleeding Gums, Change in Voice, Dental Pain, Dry Mouth, Dysphagia, Halitosis, Hoarsness, Lip Swelling, Mouth Lesions, Mouth Pain, Odynophagia, Sore Throat, Throat Swelling, Tongue Swelling, Facial Pain, Neck Pain, Neck Mass, Other - Breasts Breasts: absent: As Per HPI, Change in Shape, Mass, Pain, Nipple Discharge, Nipple Inversion, Skin Changes, Swelling, Other - Cardiovascular Cardiovascular: As Per HPI - Respiratory Respiratory: As Per HPI - Gastrointestinal Gastrointestinal: absent: As Per HPI, Abdominal Pain, Belching, Bloating, Change in Bowel Habits, Change in Stool Character, Coffee Ground Emesis, Constipation, Cramping, Diarrhea, Dyspepsia, Dysphagia, Early Satiety, Excessive Flatus, Fecal Incontinence, Heartburn, Hematemesis, Hematochezia, Loose Stools, Melena, Nausea, Odynophagia, Temesmus, Vomiting, Other - Genitourinary Genitourinary: absent: As Per HPI, Change in Urinary Stream, Difficulty Urinating, Dysuria, Flank Pain, Hematuria, Pyuria, Nocturia, Urinary Incontinence, Urinary Frequency, Urinary Hesitance, Urinary Urgency, Voiding Freq/Small Amts, Freq UTI, Hx Renal/Bladder Calculi, Hx /Renal Surgery, Bladder Distension, Other - Reproductive: Female Reproductive:Female: absent: As Per HPI, Amenorrhea, Amenorrhea/ Control, Currently Menstual, Cycle <21 Days, Cycle >35 Days, Cycle Variable, Menses 1-7 Days, Menses >/= 8 Days, Menses Variable, Cycle > 4 Weeks Between, No Menses for 6 Months, Heavy Menses, Light Menses, Normal Menses, Spotting Between Cycles , S/P Hysterectomy, Menopausal, Post Menopausal, Premenarche, Abnormal Vaginal Bleeding, Dysmenorrhea, Dyspareunia, Genital Lesions, Genital Pruritis, Pelvic Pain, Prolapse Symptoms, Sexual Dysfunction, Vaginal Discharge, Vaginal Dryness , Vaginal Odor, Vaginal Pruritis, Other - Menstruation Menstruation: absent: As Per HPI, Amenorrhea, Amenorrhea/ Control, Currently Menstual, Cycle <21 Days, Cycle >35 Days, Cycle Variable, Menses 1-7 Days, Menses >/= 8 Days, Menses Variable, Cycle > 4 Weeks Between, No Menses for 6 Months, Heavy Menses, Light Menses, Normal Menses, Spotting Between Cycles , S/P Hysterectomy, Menopausal, Post Menopausal, Premenarche, Abnormal Vaginal Bleeding, Dysmenorrhea, Other - Musculoskeletal Musculoskeletal: As Per HPI - Integumentary Integumentary: As Per HPI - Neurological Neurological: As Per HPI - Psychiatric Psychiatric: absent: As Per HPI, Abnormal Sleep Pattern, Anhedonia, Anxiety, Auditory Hallucinations, Behavioral Changes, Change in Appetite, Change in Libido, Confusion, Depression, Difficulty Concentrating, Hallucinations, Homicidal Ideation, Hopelessness, Irritability, Memory Loss, Mood Swings, Panic Attacks, Paranoia, Suicidal Ideation, Visual Hallucinations, Tactile Hallucinations, Other - Endocrine Endocrine: absent: As Per HPI, Change in Body Appearance, Change in Libido, Cold Intolorance, Deepening of Voice, Excessive Sweating, Fatigue, Flushing, Heat Intolorance, Increase in Ring/Shoe/Hat Size, Palpitations, Polydipsia, Polyphagia, Polyuria, Other - Hematologic/Lymphatic Hematologic: absent: As Per HPI, Easy Bleeding, Easy Bruising, Lymphadenopathy, Other Past Patient History - Infectious Disease Hx of Infectious Diseases: MRSA - Tetanus Immunizations Tetanus Immunization: Up to Date - Past Medical History & Family History Past Medical History?: Yes - Past Social History Smoking Status: Never Smoked Chewing Tobacco Use: No Alcohol: None Drugs: Denies Home Situation {Lives}: Long Term Domestic Violence: Negative - CARDIAC Hx Cardiac Disorders: Yes Hx Angina: No Hx Atrial Fibrillation: No (resolved) Hx Cardia Arrhythmia: Yes Hx Congestive Heart Failure: No Hx Hypercholesterolemia: Yes Hx Hypertension: Yes Hx Mitral Valve Prolapse: No Hx Pacemaker: No Hx Peripheral Edema: Yes - PULMONARY Hx Respiratory Disorders: Yes Hx Asthma: Yes Hx Bronchitis: Yes Hx Chronic Obstructive Pulmonary Disease (COPD): Yes Hx Emphysema: No Hx Pneumonia: No Hx Pulmonary Embolism: Yes Hx Respiratory Tract Infection: Yes Hx Sleep Apnea: No - NEUROLOGICAL Hx Neurological Disorder: Yes Hx Alzheimer's Disease: No Hx Dementia: No Hx Migraine: No Hx Multiple Sclerosis: Yes Hx Parkinson's Disease: No Hx Seizures: No Hx Transient Ischemic Attacks (TIA): No Hx Vertigo: No - HEENT Hx HEENT Problems: Yes Hx Blind: No Hx Cataracts: Yes Hx Difficulty Chewing: No Hx Epistaxis: No Hx Glaucoma: No Hx Macular Degeneration: No Other/Comment: wears eyeglasses for reading - RENAL Hx Chronic Kidney Disease: Yes - ENDOCRINE/METABOLIC Hx Endocrine Disorders: No Hx Hyperthyroidism: No Hx Hypothyroidism: No Other/Comment: Osteoporosis/osteoppenia - HEMATOLOGICAL/ONCOLOGICAL Hx Blood Disorders: Yes Hx AIDS: No Hx Anemia: Yes Hx Blood Transfusions: Yes Hx Blood Transfusion Reaction: No - INTEGUMENTARY Hx Dermatological Problems: Yes Hx Eczema: Yes Hx Melanoma: No Hx Psoriasis: No Hx Squamous Cell: No Other/Comment: > hx of garvin hong syndrome, unknown precipitant. > hx of bullous pemphigoid - MUSCULOSKELETAL/RHEUMATOLOGICAL Hx Arthritis: Yes Hx Falls: Yes Hx Fractures: No Hx Osteoporosis: Yes Hx Rheumatoid Arthritis: Yes - GASTROINTESTINAL Hx Gastrointestinal Disorders: Yes Hx Constipation: Yes - GENITOURINARY/GYNECOLOGICAL Hx Genitourinary Disorders: Yes Hx Incontinence: Yes Other/Comment: wears a diaper in the intermediate (as with all patients) - PSYCHIATRIC Hx Psychophysiologic Disorder: Yes Hx Anxiety: Yes Hx Depression: Yes Hx Substance Use: No - SURGICAL HISTORY Hx Surgeries: Yes Other/Comment: IVC filter 5-6 years ago for b/l DVT - ANESTHESIA Hx Anesthesia: Yes Hx Anesthesia Reactions: No Hx Malignant Hyperthermia: No Has any member of the family had a problem w/ anesthesia?: No Meds Allergies/Adverse Reactions: Allergies Allergy/AdvReac Type Severity Reaction Status Date / Time ascorbic acid Allergy Severe ANAPHYLAXIS Verified 01/25/17 19:38 aspirin Allergy RASH Verified 01/25/17 19:38 iodine Allergy RASH Verified 01/25/17 19:38 [place] cream Allergy Severe ANAPHYLAXIS Uncoded 05/07/16 00:13 - Medications Medications: Current Medications Albuterol Sulfate (Albuterol 0.083% Inhal Jeri (2.5 Mg/3 Ml) Ud) 2.5 mg INH RQ4 [facility] Last Admin: 01/27/17 14:50 Dose: 2.5 mg Albuterol/Ipratropium (Duoneb 3 Mg/0.5 Mg (3 Ml) Ud) 3 ml INH RQ6 [facility] Last Admin: 01/26/17 07:39 Dose: 3 ml Budesonide (Pulmicort Respules) 0.5 mg INH RQ12 [facility] Last Admin: 01/27/17 14:50 Dose: Not Given Heparin Sodium (Porcine) (Heparin) 5,000 units SC Q12H [facility] Last Admin: 01/27/17 15:05 Dose: 5,000 units Vancomycin HCl 1 gm/ Sodium (Chloride) 250 mls @ 166.7 mls/hr IVPB Q24H [facility] Last Admin: 01/27/17 10:28 Dose: 166.7 mls/hr Piperacillin Sod/Tazobactam (Sod 3.375 gm/ Sodium Chloride) 100 mls @ 200 mls/ hr IVPB Q8H [facility] Last Admin: 01/27/17 09:48 Dose: 200 mls/hr Potassium Chloride 40 meq/ (Sodium Chloride) 1,020 mls @ 60 mls/hr IV .Q17H [facility] Last Admin: 01/27/17 05:10 Dose: Not Given Potassium Phosphate 15 mmole/ (Sodium Chloride) 255 mls @ 42.5 mls/hr IVPB ONCE ONE Stop: 01/27/17 15:59 Last Admin: 01/27/17 10:31 Dose: 42.5 mls/hr Pantoprazole Sodium (Protonix Susp) 40 mg PO 0600 [facility] Last Admin: 01/27/17 07:09 Dose: 40 mg Rosuvastatin Calcium (Crestor) 5 mg PO HS [facility] Last Admin: 01/26/17 22:26 Dose: 5 mg Sucralfate (Carafate Oral Susp) 1 gm PO Q6 [facility] Last Admin: 01/27/17 11:11 Dose: 1 gm Physical Exam - Constitutional Appears: Non-toxic, Confused, Cachectic, Chronically Ill - Head Exam Head Exam: ATRAUMATIC, NORMAL INSPECTION, NORMOCEPHALIC - Eye Exam Eye Exam: PERRL. absent: Scleral icterus - ENT Exam ENT Exam: Mucous Membranes Dry, Normal External Ear Exam - Neck Exam Neck exam: Negative for: Lymphadenopathy, Thyromegaly - Respiratory Exam Respiratory Exam: Decreased Breath Sounds, Rhonchi - Cardiovascular Exam Cardiovascular Exam: Tachycardia, REGULAR RHYTHM, +S1, +S2 - GI/Abdominal Exam GI & Abdominal Exam: Diminished Bowel Sounds, Soft. absent: Tenderness - Rectal Exam Rectal Exam: Deferred - Exam Exam: NORMAL INSPECTION - Extremities Exam Extremities exam: Positive for: pedal pulses present. Negative for: calf tenderness, pedal edema, tenderness - Back Exam Back exam: absent: CVA tenderness (L), CVA tenderness (R), paraspinal tenderness - Neurological Exam Neurological exam: Alert, CN II-XII Intact, Oriented x3, Reflexes Normal - Psychiatric Exam Psychiatric exam: Normal Mood - Skin Skin Exam: Dry, Intact Results - Vital Signs Recent Vital Signs: Last Vital Signs Temp 98.0 F 01/27/17 12:00 Pulse 97 H 01/27/17 15:00 Resp 17 01/27/17 15:00 BP 99/55 L 01/27/17 14:35 Pulse Ox 97 01/27/17 15:00 - Labs Result Diagrams: 01/27/17 06:12 01/27/17 06:12 Labs: Laboratory Results - last 24 hr 01/26/17 01/26/17 01/27/17 16:28 21:17 06:12 WBC 7.2 D RBC 3.01 L Hgb 9.8 L D Hct 29.1 L MCV 96.7 MCH 32.6 H MCHC 33.8 RDW 18.0 H Plt Count 101 L MPV 9.9 Neut % (Auto) 94.0 H Lymph % (Auto) 3.2 L [place] % (Auto) 2.1 Eos % (Auto) 0.4 Baso % (Auto) 0.3 Neut # 6.8 Lymph # 0.2 L [place] # 0.2 Eos # 0.0 Baso # 0.0 Neutrophils % (Manual) 68 Band Neutrophils % 31 H* Lymphocytes % (Manual) TEST NOT PERFORMED Monocytes % (Manual) 1 Platelet Estimate Slightly decreased L Polychromasia Slight Anisocytosis (manual) Slight Sodium Potassium Chloride Carbon Dioxide Anion Gap BUN Creatinine Est GFR ( Amer) Est GFR (Non-Af Amer) POC Glucose (mg/dL) 116 H 89 Random Glucose Calcium Phosphorus Magnesium Total Bilirubin AST ALT Alkaline Phosphatase Total Protein Albumin Globulin Albumin/Globulin Ratio 01/27/17 01/27/17 01/27/17 06:12 07:19 11:59 WBC RBC Hgb Hct MCV MCH MCHC RDW Plt Count MPV Neut % (Auto) Lymph % (Auto) [place] % (Auto) Eos % (Auto) Baso % (Auto) Neut # Lymph # [place] # Eos # Baso # Neutrophils % (Manual) Band Neutrophils % Lymphocytes % (Manual) Monocytes % (Manual) Platelet Estimate Polychromasia Anisocytosis (manual) Sodium 138 Potassium 3.1 L Chloride 108 H Carbon Dioxide 27 Anion Gap 7 L BUN 12 Creatinine 0.5 L Est GFR ( Amer) > 60 Est GFR (Non-Af Amer) > 60 POC Glucose (mg/dL) 113 H 136 H Random Glucose 92 Calcium 7.2 L Phosphorus 2.0 L Magnesium 1.7 Total Bilirubin 0.7 AST 18 ALT 36 Alkaline Phosphatase 63 Total Protein 5.0 L Albumin 2.1 L D Globulin 2.8 Albumin/Globulin Ratio 0.8 L Assessment & Plan (1) Bandemia without diagnosis of specific infection Status: Acute Priority: Medium (2) Hypercapnia Status: Acute (3) Hypoxia Status: Acute (4) Respiratory distress Status: Acute Priority: High (5) Altered mental status Status: Acute Priority: Medium (6) Anemia Status: Acute Priority: Medium (7) Anemia of chronic disease Status: Acute (8) Dyspnea Status: Acute - Assessment and Plan (Free Text) Plan: resp failure/ sepsis /pneumonia MS with progression poor prognosis Pulm eval ongoing await cultures and serologies
[2017-01-27] MEDS ORDERED: Potassium Chloride 20 MEQ in Dextrose 5%/0.9% NS 1,000 ML IV ONE (18:54)
--- NOTE | 2017-01-27 19:08 | CP.PCM.PN ---
Subjective - Date & Time of Evaluation Date of Evaluation: 01/27/17 Time of Evaluation: 19:02 - Subjective Subjective: Pt's labs and status reviewed today: Almost 2-pt decrease in hemoglobin with IV infusion commensurate to insensible losses; relative decrease in bandemia by 5 points with unknown etiology for bandemia. ( 1 g steroid infusio approx 1 week ago??) no nutritional support andpt unable to take in much po; will add D5 to NSS emphasized sputum culture if obtainable discussed bipap setting with RT to optimize setting, alpesh with machine setting vs pt inspiratory rate cxr no new findings. repleted calcium via IV pt does not tolerate po well, unable to replete via IV Objective - Vital Signs/Intake and Output Vital Signs (last 24 hours): Temp Pulse Resp BP Pulse Ox 98.1 F 101 H 22 96/58 L 98 01/27/17 16:00 01/27/17 18:00 01/27/17 18:00 01/27/17 17:35 01/27/17 18:00 Intake and Output: 01/27/17 01/28/17 18:59 06:59 Intake Total 1402 Output Total 320 Balance 1082 - Medications Medications: Current Medications Albuterol Sulfate (Albuterol 0.083% Inhal Jeri (2.5 Mg/3 Ml) Ud) 2.5 mg INH RQ4 [facility] Last Admin: 01/27/17 16:33 Dose: 2.5 mg Budesonide (Pulmicort Respules) 0.5 mg INH RQ12 [facility] Last Admin: 01/27/17 14:50 Dose: Not Given Heparin Sodium (Porcine) (Heparin) 5,000 units SC Q12H [facility] Last Admin: 01/27/17 15:05 Dose: 5,000 units Piperacillin Sod/Tazobactam (Sod 3.375 gm/ Sodium Chloride) 100 mls @ 200 mls/ hr IVPB Q8H [facility] Last Admin: 01/27/17 17:45 Dose: 200 mls/hr Potassium Chloride 40 meq/ (Sodium Chloride) 1,020 mls @ 60 mls/hr IV .Q17H [facility] Last Admin: 01/27/17 17:51 Dose: 60 mls/hr Linezolid (Zyvox 600mg/300ml D5w) 600 mg in 300 mls @ 200 mls/hr IVPB Q12 [facility] Potassium Chloride 20 meq/ (Dextrose/Sodium Chloride) 1,010 mls @ 60 mls/hr IV .[id number] ONE Stop: 01/28/17 11:43 Pantoprazole Sodium (Protonix Susp) 40 mg PO 0600 [facility] Last Admin: 01/27/17 07:09 Dose: 40 mg Rosuvastatin Calcium (Crestor) 5 mg PO HS [facility] Last Admin: 01/26/17 22:26 Dose: 5 mg Sucralfate (Carafate Oral Susp) 1 gm PO Q6 [facility] Last Admin: 01/27/17 18:51 Dose: 1 gm - Labs Labs: 01/27/17 06:12 01/27/17 06:12 PT 9.6 SECONDS (9.7-12.2) L 01/25/17 20:26 INR 0.9 01/25/17 20:26 APTT 25 SECONDS (21-34) 01/25/17 20:26 - Constitutional Appears: No Acute Distress, Other (appears to be mentally competent and able to refuse certain interventions) - Head Exam Head Exam: NORMAL INSPECTION Additional comments: no s/sx of trauma - Eye Exam Eye Exam: Normal appearance Pupil Exam: NORMAL ACCOMODATION - ENT Exam ENT Exam: Mucous Membranes Dry, Normal Oropharynx - Neck Exam Neck Exam: Full ROM - Respiratory Exam Respiratory Exam: Clear to Ausculation Bilateral (slightly tachypneic) - Cardiovascular Exam Cardiovascular Exam: REGULAR RHYTHM - GI/Abdominal Exam GI & Abdominal Exam: Normal Bowel Sounds - Rectal Exam Rectal Exam: Deferred - Extremities Exam Extremities Exam: Normal Inspection (no tenderness noted) - Back Exam Additional comments: + pressure ulcers at buttocks and sacrum - Neurological Exam Neurological Exam: Awake, Oriented x3 Neuro motor strength exam: Left Upper Extremity: 4, Right Upper Extremity: 4, Left Lower Extremity: 2/1, Right Lower Extremity: 2/1 - Psychiatric Exam Psychiatric exam: Depressed, Normal Affect, Normal Mood Assessment and Plan (1) Respiratory distress Assessment & Plan: still on bipap. IV abx started. Consider ordering CT scan of the chest with IV contrast in AM if pt's CXR does not improve and bandemia does not improve significantly (< 1/2 of admission value?). Status: Acute (2) Altered mental status Assessment & Plan: more awake and alert with bipap, appears to tire out at night as suspected Status: Acute (3) Bandemia without diagnosis of specific infection Assessment & Plan: on Zyvo and Zosyn Status: Acute (4) Hypertension Assessment & Plan: resolved. actually may be becoming hypotensive despite IV repletion. Status: Resolved (5) Hypocalcemia Assessment & Plan: repleting via IV Status: Acute (6) Hypophosphatemia Assessment & Plan: unable to replete at this time for lack of IV formula Status: Acute (7) Multiple sclerosis Assessment & Plan: appears to be progressing, though difficult to determine progression acutely. Status: Chronic
[2017-01-27] MEDS: Linezolid 600 mg in D5W 300 ml 600 MG/300 ML BAG IVPB SCH (21:41)
[2017-01-28] MEDS: Piperacillin/Tazobact 3.375 GM in Sodium Chloride 100 ML IVPB SCH ×2 (01:30→09:53)
[2017-01-28] MEDS: Albuterol 0.083% Inhal Sol (2.5 mg/3 mL) UD INH SCH ×5 (03:09→19:33)
[2017-01-28 06:18] LABS: BASO % 0.1 % (0.0-2.0); EOS % 0.6 % (0.0-4.0); HEMATOCRIT 26.8 % (34.0-47.0); LYMPH # 0.2 K/uL (1.0-4.3); LYMPH % 3.7 % (20.0-40.0); MEAN CELL VOLUME 96.7 fL (81.0-99.0); MEAN CORPUSCULAR HGB CONC 33.1 g/dL (33.0-37.0); MEAN PLATELET VOLUME 9.5 fL (7.2-11.7); MONO # 0.1 K/uL (0.0-0.8); MONO % 2.4 % (0.0-10.0); NRBC % 0.1 % (0.0-2.0); PLATELET COUNT 91 K/uL (130-400); RED CELL DISTRIBUTION WIDTH 18.5 % (11.5-14.5)
[2017-01-28] MEDS: Pantoprazole 40 mg Susp UD PO SCH (06:24)
[2017-01-28] MEDS: Sucralfate 1 gm/10 ml Oral Susp UD PO SCH ×3 (06:24→17:42)
[2017-01-28 06:28] LABS: CHLORIDE 107 mmol/L (98-107); SODIUM 137 mmol/L (132-148)
[2017-01-28 06:29] LABS: POTASSIUM 3.3 mmol/L (3.6-5.2)
[2017-01-28 06:30] LABS: GFR AFRICAN-AMERICAN > 60
[2017-01-28 06:31] LABS: ALB/GLOB RATIO 0.8 (1.0-2.1); ALKALINE PHOSPHATASE 60 U/L (38-126); ALT/SGPT 32 U/L (9-52); AST/SGOT 14 U/L (14-36); BILIRUBIN,TOTAL 0.8 mg/dL (0.2-1.3); BLOOD UREA NITROGEN 8 mg/dL (7-17); CARBON DIOXIDE 25 mmol/L (22-30); GLUCOSE,RANDOM 155 mg/dL (65-105); PHOSPHOROUS 1.7 mg/dL (2.5-4.5); TOTAL PROTEIN 4.5 g/dL (6.3-8.3)
[2017-01-28 06:32] LABS: CALCIUM 7.5 mg/dl (8.6-10.4); MAGNESIUM 1.6 mg/dL (1.6-2.3)
[2017-01-28] MEDS: Budesonide 0.5 mg/2 ml Inhal Susp UD INH SCH ×2 (07:37→19:32)
[2017-01-28 08:37] LABS: EOSINOPHIL 1 % (0-4); NEUTROPHIL 69 % (50-75); REACTIVE LYMPHOCYTES 1 % (0-0); TOTAL CELLS COUNTED 100
[2017-01-28 08:38] LABS: LARGE PLATELETS PRESENT
--- NOTE | 2017-01-28 08:45 | CP.PCM.PN ---
Subjective - Date & Time of Evaluation Date of Evaluation: 01/28/17 Time of Evaluation: 08:39 - Subjective Subjective: Patient is today more awake and responding. Comfortable. On BiPAP. No chest pain. Cough is still present. Particular mucus noted. On examination: Vital signs are stable. Saturation is 100%. Chest good air entry in the left lung. Decreased on the right lung. Abdomen soft nontender. Extremities edema Labs reviewed in Nonspecific. Low platelets Chest x-ray pending Assessment and recommendation: 76-year-old female with a chronic respiratory insufficiency BiPAP. Patient is also having possible aspiration pneumonitis of the right lung. Muscle fatigue, associated with weakness secondary to multiple sclerosis. We'll continue the noninvasive ventilation. Physical therapy. Continue the current treatment. Objective - Vital Signs/Intake and Output Vital Signs (last 24 hours): Temp Pulse Resp BP Pulse Ox 97.9 F 95 H 19 94/53 L 100 01/28/17 04:00 01/28/17 07:37 01/28/17 07:35 01/28/17 07:35 01/28/17 07:35 Intake and Output: 01/28/17 01/28/17 06:59 18:59 Intake Total 680 60 Output Total 245 30 Balance 435 30 - Medications Medications: Current Medications Albuterol Sulfate (Albuterol 0.083% Inhal Jeri (2.5 Mg/3 Ml) Ud) 2.5 mg INH RQ4 [facility] Last Admin: 01/28/17 07:36 Dose: 2.5 mg Budesonide (Pulmicort Respules) 0.5 mg INH RQ12 [facility] Last Admin: 01/28/17 07:37 Dose: 0.5 mg Piperacillin Sod/Tazobactam (Sod 3.375 gm/ Sodium Chloride) 100 mls @ 200 mls/ hr IVPB Q8H [facility] Last Admin: 01/28/17 01:30 Dose: 200 mls/hr Linezolid (Zyvox 600mg/300ml D5w) 600 mg in 300 mls @ 200 mls/hr IVPB Q12 [facility] Last Admin: 01/27/17 21:41 Dose: 200 mls/hr Potassium Chloride 20 meq/ (Dextrose/Sodium Chloride) 1,010 mls @ 60 mls/hr IV .[id number] ONE Stop: 01/28/17 11:43 Last Admin: 01/27/17 19:30 Dose: 60 mls/hr Pantoprazole Sodium (Protonix Susp) 40 mg PO 0600 [facility] Last Admin: 01/28/17 06:24 Dose: 40 mg Rosuvastatin Calcium (Crestor) 5 mg PO HS [facility] Last Admin: 01/27/17 21:41 Dose: 5 mg Sodium Chloride (Hypertonic Saline 3%) 0 ml PO ONCE PRN PRN Reason: sputum induction Sucralfate (Carafate Oral Susp) 1 gm PO Q6 [facility] Last Admin: 01/28/17 06:24 Dose: 1 gm - Labs Labs: 01/28/17 06:09 01/28/17 06:10 PT 9.6 SECONDS (9.7-12.2) L 01/25/17 20:26 INR 0.9 01/25/17 20:26 APTT 25 SECONDS (21-34) 01/25/17 20:26
[2017-01-28] MEDS: Linezolid 600 mg in D5W 300 ml 600 MG/300 ML BAG IVPB SCH ×2 (09:21→21:44)
[2017-01-28] MEDS ORDERED: Potassium Phosphate 15 MMOLE in Sodium Chloride 0.9% 250 ML IV ONE (10:05)
--- NOTE | 2017-01-28 14:51 | CP.PCM.PN ---
Subjective - Date & Time of Evaluation Date of Evaluation: 01/28/17 Time of Evaluation: 09:00 - Subjective Subjective: afeb alert cultures neg thus far Objective - Vital Signs/Intake and Output Vital Signs (last 24 hours): Temp Pulse Resp BP Pulse Ox 98.2 F 113 H 25 H 119/60 98 01/28/17 12:00 01/28/17 13:30 01/28/17 13:30 01/28/17 12:35 01/28/17 13:30 Intake and Output: 01/28/17 01/28/17 06:59 18:59 Intake Total 680 821 Output Total 245 190 Balance 435 631 - Medications Medications: Current Medications Albuterol Sulfate (Albuterol 0.083% Inhal Jeri (2.5 Mg/3 Ml) Ud) 2.5 mg INH RQ4 [facility] Last Admin: 01/28/17 12:52 Dose: 2.5 mg Budesonide (Pulmicort Respules) 0.5 mg INH RQ12 [facility] Last Admin: 01/28/17 07:37 Dose: 0.5 mg Piperacillin Sod/Tazobactam (Sod 3.375 gm/ Sodium Chloride) 100 mls @ 200 mls/ hr IVPB Q8H [facility] Last Admin: 01/28/17 09:53 Dose: 200 mls/hr Linezolid (Zyvox 600mg/300ml D5w) 600 mg in 300 mls @ 200 mls/hr IVPB Q12 [facility] Last Admin: 01/28/17 09:21 Dose: 200 mls/hr Pantoprazole Sodium (Protonix Susp) 40 mg PO 0600 [facility] Last Admin: 01/28/17 06:24 Dose: 40 mg Rosuvastatin Calcium (Crestor) 5 mg PO HS [facility] Last Admin: 01/27/17 21:41 Dose: 5 mg Sodium Chloride (Hypertonic Saline 3%) 0 ml PO ONCE PRN PRN Reason: sputum induction Sucralfate (Carafate Oral Susp) 1 gm PO Q6 [facility] Last Admin: 01/28/17 13:52 Dose: 1 gm - Labs Labs: 01/28/17 06:09 01/28/17 06:10 PT 9.6 SECONDS (9.7-12.2) L 01/25/17 20:26 INR 0.9 01/25/17 20:26 APTT 25 SECONDS (21-34) 01/25/17 20:26 - Constitutional Appears: Non-toxic, Cachectic, Chronically Ill - Head Exam Head Exam: NORMOCEPHALIC - Eye Exam Eye Exam: PERRL. absent: Scleral icterus - ENT Exam ENT Exam: Mucous Membranes Dry - Neck Exam Neck Exam: absent: Lymphadenopathy - Respiratory Exam Respiratory Exam: Decreased Breath Sounds - Cardiovascular Exam Cardiovascular Exam: REGULAR RHYTHM, +S1, +S2 - GI/Abdominal Exam GI & Abdominal Exam: Distended, Soft - Rectal Exam Rectal Exam: Deferred - Exam Exam: NORMAL INSPECTION - Extremities Exam Extremities Exam: absent: Pedal Edema - Back Exam Back Exam: absent: CVA tenderness (L), CVA tenderness (R) Assessment and Plan (1) Bandemia without diagnosis of specific infection Status: Acute (2) Hypercapnia Status: Acute (3) Hypoxia Status: Acute (4) Respiratory distress Status: Acute (5) Altered mental status Status: Acute (6) Anemia Status: Acute (7) Anemia of chronic disease Status: Acute (8) Dyspnea Status: Acute - Assessment and Plan (Free Text) Assessment: possible recurrent aspiration in setting of MS
--- NOTE | 2017-01-28 16:16 | CP.PCM.PN ---
Subjective - Date & Time of Evaluation Date of Evaluation: 01/28/17 Time of Evaluation: 16:15 - Subjective Subjective: Pt seen and examined at bedside. Pt had been refusing her chest xray, and, in light of recurrence of pt's pneumonia, it becomes critical that these tests be done otherwise her stay in ICU becomes moot. Discussed the situation with 1 daughter, Demi, who promised to relay the info to her sibling(s) who has POA. Informed her, too, that their mother has GI bleeding again with the + stool occult blood, though stool looks normal per NOD. If any intervention is sought by family, then code change cannot be done. So a family conference should take place. I informed her that the DNR papers will be in the chart if they so decide to consent to the code change from full code to DNR/DNI. Objective - Vital Signs/Intake and Output Vital Signs (last 24 hours): Temp Pulse Resp BP Pulse Ox 98.2 F 113 H 25 H 119/60 98 01/28/17 12:00 01/28/17 13:30 01/28/17 13:30 01/28/17 12:35 01/28/17 13:30 Intake and Output: 01/28/17 01/28/17 06:59 18:59 Intake Total 680 821 Output Total 245 190 Balance 435 631 - Medications Medications: Current Medications Albuterol Sulfate (Albuterol 0.083% Inhal Jeri (2.5 Mg/3 Ml) Ud) 2.5 mg INH RQ4 [facility] Last Admin: 01/28/17 12:52 Dose: 2.5 mg Budesonide (Pulmicort Respules) 0.5 mg INH RQ12 [facility] Last Admin: 01/28/17 07:37 Dose: 0.5 mg Linezolid (Zyvox 600mg/300ml D5w) 600 mg in 300 mls @ 200 mls/hr IVPB Q12 [facility] Last Admin: 01/28/17 09:21 Dose: 200 mls/hr Piperacillin Sod/Tazobactam Sod (Zosyn 3.375 Gm Iv Premix) 3.375 gm in 50 mls @ 100 mls/hr IVPB Q8H [facility] Pantoprazole Sodium (Protonix Susp) 40 mg PO 0600 [facility] Last Admin: 01/28/17 06:24 Dose: 40 mg Rosuvastatin Calcium (Crestor) 5 mg PO HS [facility] Last Admin: 01/27/17 21:41 Dose: 5 mg Sodium Chloride (Hypertonic Saline 3%) 0 ml PO ONCE PRN PRN Reason: sputum induction Sucralfate (Carafate Oral Susp) 1 gm PO Q6 [facility] Last Admin: 01/28/17 13:52 Dose: 1 gm - Labs Labs: 01/28/17 06:09 01/28/17 06:10 PT 9.6 SECONDS (9.7-12.2) L 01/25/17 20:26 INR 0.9 01/25/17 20:26 APTT 25 SECONDS (21-34) 01/25/17 20:26 - Constitutional Appears: No Acute Distress, Other (looks weak, barely able to speak, voice soft , responds with head nods or shakes for yes or no.) - Eye Exam Eye Exam: Normal appearance Pupil Exam: PERRL - ENT Exam ENT Exam: Normal Exam Additional comments: no discharge, + bipap - Neck Exam Additional comments: exaggerated kyphosis with dextroscoliosis? - Respiratory Exam Respiratory Exam: Decreased Breath Sounds (shallow breathing) - Cardiovascular Exam Cardiovascular Exam: Tachycardia, REGULAR RHYTHM - GI/Abdominal Exam GI & Abdominal Exam: Diminished Bowel Sounds - Extremities Exam Extremities Exam: Normal Inspection - Back Exam Additional comments: + gluteal sacral pressure ulcers - Neurological Exam Neurological Exam: Alert, Awake, Oriented x3 Neuro motor strength exam: Left Upper Extremity: 2/1, Right Upper Extremity: 2/1 , Left Lower Extremity: 2/1, Right Lower Extremity: 2/1 - Psychiatric Exam Psychiatric exam: Depressed - Skin Skin Exam: Dry, Warm Assessment and Plan (1) Respiratory distress Assessment & Plan: still on bipap, 60%, tachycardic; + mucus plugging on R mainstem bronchi, adjusted nebulized meds as appropriate, stat neb treatemtns with chest physiotherapy in attempt to dislodge mucus plugging Status: Acute (2) Altered mental status Assessment & Plan: when fully awake, no change in mental status Status: Resolved (3) Bandemia without diagnosis of specific infection Status: Acute (4) Hypocalcemia Assessment & Plan: improving, continue current abx Status: Acute (5) Hypophosphatemia Assessment & Plan: K-Phos repletiion ongoing Status: Acute (6) Multiple sclerosis Assessment & Plan: progressive, may be why pt gets fatigued with WOB Status: Chronic - Assessment and Plan (Free Text) Assessment: Continue current mgt; awaiting family decision re: pt's request for code status change.
--- NOTE | 2017-01-28 16:38 | CP.CCUPN ---
CCU Subjective - Physician Review Subjective (Free Text): Patient was seen and examined at bedside. Patient was mildly agitated and did not want to be spoken to or examined during the encounter. Unable to evaluate ROS as patient was uncooperative. CCU Objective - Vital Signs / Intake & Output Vital Signs (Last 4 hours): Vital Signs Pulse Resp Pulse Ox 01/28/17 16:24 111 H 01/28/17 13:30 113 H 25 H 98 Intake and Output (Last 8hrs): Intake & Output 01/28/17 01/28/17 01/28/17 06:59 14:59 22:59 Intake Total 620 884 123 Output Total 215 255 60 Balance 405 629 63 Weight 152 lb 8.958 oz Intake: Intake, IV Amount 620 644 123 Right PICC 200 Right Upper arm 420 644 123 Oral 240 Output: Urine 215 255 60 Urethral ([place]) 215 255 60 - Physical Exam Head: Positive for: Atraumatic Extroacular Muscles: Positive for: EOMI Respiratory/Chest: Positive for: Good Air Exchange Cardiovascular: Positive for: Regular Rate and Rhythm, Normal S1, S2 Abdomen: Positive for: Normal Bowel Sounds. Negative for: Tenderness, Distention Upper Extremity: Positive for: Swelling Lower Extremity: Positive for: Swelling Skin: Positive for: Warm, Normal Color Psychiatric: Positive for: Alert - Medications Active Medications: Active Medications Generic Name Dose Route Start Last Admin Trade Name Freq PRN Reason Stop Dose Admin Albuterol Sulfate 2.5 mg 01/26/17 16:00 01/28/17 12:52 Albuterol 0.083% Inhal Jeri (2.5 Mg/3 Ml) Ud INH 2.5 mg RQ4 RAUL Administration Budesonide 0.5 mg 01/26/17 08:00 01/28/17 07:37 Pulmicort Respules INH 0.5 mg RQ12 RAUL Administration Linezolid 600 mg in 300 mls @ 200 mls/hr 01/27/17 22:00 01/28/17 09:21 Zyvox 600mg/300ml D5w IVPB 200 mls/hr Q12 RAUL Administration Piperacillin Sod/Tazobactam Sod 3.375 gm in 50 mls @ 100 mls/hr 01/28/17 18: 30 Zosyn 3.375 Gm Iv Premix IVPB Q8H RAUL Pantoprazole Sodium 40 mg 01/26/17 06:00 01/28/17 06:24 Protonix Susp PO 40 mg 0600 RAUL Administration Rosuvastatin Calcium 5 mg 01/26/17 22:00 01/27/17 21:41 Crestor PO 5 mg HS RAUL Administration Sodium Chloride 0 ml 01/27/17 19:45 Hypertonic Saline 3% PO ONCE PRN sputum induction Sucralfate 1 gm 01/26/17 06:00 01/28/17 13:52 Carafate Oral Susp PO 1 gm Q6 RAUL Administration - Patient Studies Lab Studies: Microbiology Studies 01/26/17 Unknown MRSA Culture (Admit) - Final Naris 01/25/17 21:10 Blood Culture - Preliminary Blood-Venous NO GROWTH AFTER 48 HOURS 01/25/17 20:20 Blood Culture - Preliminary Blood-Venous NO GROWTH AFTER 48 HOURS Lab Studies 01/28/17 01/28/17 01/28/17 Range/Units 16:09 11:22 08:40 WBC (4.8-10.8) K/uL RBC (3.80-5.20) Mil/uL Hgb (11.0-16.0) g/dL Hct (34.0-47.0) % MCV (81.0-99.0) fL MCH (27.0-31.0) pg MCHC (33.0-37.0) g/dL RDW (11.5-14.5) % Plt Count (130-400) K/uL MPV (7.2-11.7) fL Neut % (Auto) (50.0-75.0) % Lymph % (Auto) (20.0-40.0) % [place] % (Auto) (0.0-10.0) % Eos % (Auto) (0.0-4.0) % Baso % (Auto) (0.0-2.0) % Neut # (1.8-7.0) K/uL Lymph # (1.0-4.3) K/uL [place] # (0.0-0.8) K/uL Eos # (0.0-0.7) K/uL Baso # (0.0-0.2) K/uL Neutrophils % (Manual) (50-75) % Band Neutrophils % (0-2) % Lymphocytes % (Manual) (20-40) % Reactive Lymphs % (0-0) % Monocytes % (Manual) (0-10) % Eosinophils % (Manual) (0-4) % Platelet Estimate (NORMAL) Large Platelets Hypochromasia (manual) Poikilocytosis (manual Anisocytosis (manual) Microcytosis (manual) Sodium (132-148) mmol/L Potassium (3.6-5.2) mmol/L Chloride (98-107) mmol/L Carbon Dioxide (22-30) mmol/L Anion Gap (10-20) BUN (7-17) mg/dL Creatinine (0.7-1.2) mg/dL Est GFR ( Amer) Est GFR (Non-Af Amer) POC Glucose (mg/dL) 105 147 H (65-110) mg/dL Random Glucose (65-105) mg/dL Calcium (8.6-10.4) mg/dl Phosphorus (2.5-4.5) mg/dL Magnesium (1.6-2.3) mg/dL Total Bilirubin (0.2-1.3) mg/dL AST (14-36) U/L ALT (9-52) U/L Alkaline Phosphatase (38-126) U/L NT-Pro-B Natriuret Pep (0-900) pg/mL Total Protein (6.3-8.3) g/dL Albumin (3.5-5.0) g/dL Globulin (2.2-3.9) gm/dL Albumin/Globulin Ratio (1.0-2.1) Stool Occult Blood (NEGATIVE) C. difficile Ag & Toxin Negative (NEGATIVE) 01/28/17 01/28/17 01/28/17 Range/Units 08:02 07:16 06:10 WBC (4.8-10.8) K/uL RBC (3.80-5.20) Mil/uL Hgb (11.0-16.0) g/dL Hct (34.0-47.0) % MCV (81.0-99.0) fL MCH (27.0-31.0) pg MCHC (33.0-37.0) g/dL RDW (11.5-14.5) % Plt Count (130-400) K/uL MPV (7.2-11.7) fL Neut % (Auto) (50.0-75.0) % Lymph % (Auto) (20.0-40.0) % [place] % (Auto) (0.0-10.0) % Eos % (Auto) (0.0-4.0) % Baso % (Auto) (0.0-2.0) % Neut # (1.8-7.0) K/uL Lymph # (1.0-4.3) K/uL [place] # (0.0-0.8) K/uL Eos # (0.0-0.7) K/uL Baso # (0.0-0.2) K/uL Neutrophils % (Manual) (50-75) % Band Neutrophils % (0-2) % Lymphocytes % (Manual) (20-40) % Reactive Lymphs % (0-0) % Monocytes % (Manual) (0-10) % Eosinophils % (Manual) (0-4) % Platelet Estimate (NORMAL) Large Platelets Hypochromasia (manual) Poikilocytosis (manual Anisocytosis (manual) Microcytosis (manual) Sodium 137 (132-148) mmol/L Potassium 3.3 L (3.6-5.2) mmol/L Chloride 107 (98-107) mmol/L Carbon Dioxide 25 (22-30) mmol/L Anion Gap 8 L (10-20) BUN 8 (7-17) mg/dL Creatinine 0.5 L (0.7-1.2) mg/dL Est GFR ( Amer) > 60 Est GFR (Non-Af Amer) > 60 POC Glucose (mg/dL) 125 H (65-110) mg/dL Random Glucose 155 H (65-105) mg/dL Calcium 7.5 L (8.6-10.4) mg/dl Phosphorus 1.7 L (2.5-4.5) mg/dL Magnesium 1.6 (1.6-2.3) mg/dL Total Bilirubin 0.8 (0.2-1.3) mg/dL AST 14 D (14-36) U/L ALT 32 (9-52) U/L Alkaline Phosphatase 60 (38-126) U/L NT-Pro-B Natriuret Pep 1690 H (0-900) pg/mL Total Protein 4.5 L (6.3-8.3) g/dL Albumin 2.0 L (3.5-5.0) g/dL Globulin 2.5 (2.2-3.9) gm/dL Albumin/Globulin Ratio 0.8 L (1.0-2.1) Stool Occult Blood Positive H (NEGATIVE) C. difficile Ag & Toxin (NEGATIVE) 01/28/17 01/27/17 Range/Units 06:09 21:10 WBC 5.0 (4.8-10.8) K/uL RBC 2.78 L (3.80-5.20) Mil/uL Hgb 8.9 L (11.0-16.0) g/dL Hct 26.8 L (34.0-47.0) % MCV 96.7 (81.0-99.0) fL MCH 32.0 H (27.0-31.0) pg MCHC 33.1 (33.0-37.0) g/dL RDW 18.5 H (11.5-14.5) % Plt Count 91 L (130-400) K/uL MPV 9.5 (7.2-11.7) fL Neut % (Auto) 93.2 H (50.0-75.0) % Lymph % (Auto) 3.7 L (20.0-40.0) % [place] % (Auto) 2.4 (0.0-10.0) % Eos % (Auto) 0.6 (0.0-4.0) % Baso % (Auto) 0.1 (0.0-2.0) % Neut # 4.7 (1.8-7.0) K/uL Lymph # 0.2 L (1.0-4.3) K/uL [place] # 0.1 (0.0-0.8) K/uL Eos # 0.0 (0.0-0.7) K/uL Baso # 0.0 (0.0-0.2) K/uL Neutrophils % (Manual) 69 (50-75) % Band Neutrophils % 21 H* (0-2) % Lymphocytes % (Manual) 4 L (20-40) % Reactive Lymphs % 1 H (0-0) % Monocytes % (Manual) 4 (0-10) % Eosinophils % (Manual) 1 (0-4) % Platelet Estimate Decreased L (NORMAL) Large Platelets Present Hypochromasia (manual) Moderate Poikilocytosis (manual Slight Anisocytosis (manual) Slight Microcytosis (manual) Slight Sodium (132-148) mmol/L Potassium (3.6-5.2) mmol/L Chloride (98-107) mmol/L Carbon Dioxide (22-30) mmol/L Anion Gap (10-20) BUN (7-17) mg/dL Creatinine (0.7-1.2) mg/dL Est GFR ( Amer) Est GFR (Non-Af Amer) POC Glucose (mg/dL) 132 H (65-110) mg/dL Random Glucose (65-105) mg/dL Calcium (8.6-10.4) mg/dl Phosphorus (2.5-4.5) mg/dL Magnesium (1.6-2.3) mg/dL Total Bilirubin (0.2-1.3) mg/dL AST (14-36) U/L ALT (9-52) U/L Alkaline Phosphatase (38-126) U/L NT-Pro-B Natriuret Pep (0-900) pg/mL Total Protein (6.3-8.3) g/dL Albumin (3.5-5.0) g/dL Globulin (2.2-3.9) gm/dL Albumin/Globulin Ratio (1.0-2.1) Stool Occult Blood (NEGATIVE) C. difficile Ag & Toxin (NEGATIVE) Laboratory Results - last 24 hr 01/27/17 01/28/17 01/28/17 21:10 06:09 06:10 WBC 5.0 RBC 2.78 L Hgb 8.9 L Hct 26.8 L MCV 96.7 MCH 32.0 H MCHC 33.1 RDW 18.5 H Plt Count 91 L MPV 9.5 Neut % (Auto) 93.2 H Lymph % (Auto) 3.7 L [place] % (Auto) 2.4 Eos % (Auto) 0.6 Baso % (Auto) 0.1 Neut # 4.7 Lymph # 0.2 L [place] # 0.1 Eos # 0.0 Baso # 0.0 Neutrophils % (Manual) 69 Band Neutrophils % 21 H* Lymphocytes % (Manual) 4 L Reactive Lymphs % 1 H Monocytes % (Manual) 4 Eosinophils % (Manual) 1 Platelet Estimate Decreased L Large Platelets Present Hypochromasia (manual) Moderate Poikilocytosis (manual Slight Anisocytosis (manual) Slight Microcytosis (manual) Slight Sodium 137 Potassium 3.3 L Chloride 107 Carbon Dioxide 25 Anion Gap 8 L BUN 8 Creatinine 0.5 L Est GFR ( Amer) > 60 Est GFR (Non-Af Amer) > 60 POC Glucose (mg/dL) 132 H Random Glucose 155 H Calcium 7.5 L Phosphorus 1.7 L Magnesium 1.6 Total Bilirubin 0.8 AST 14 D ALT 32 Alkaline Phosphatase 60 NT-Pro-B Natriuret Pep 1690 H Total Protein 4.5 L Albumin 2.0 L Globulin 2.5 Albumin/Globulin Ratio 0.8 L Stool Occult Blood C. difficile Ag & Toxin 01/28/17 01/28/17 01/28/17 07:16 08:02 08:40 WBC RBC Hgb Hct MCV MCH MCHC RDW Plt Count MPV Neut % (Auto) Lymph % (Auto) [place] % (Auto) Eos % (Auto) Baso % (Auto) Neut # Lymph # [place] # Eos # Baso # Neutrophils % (Manual) Band Neutrophils % Lymphocytes % (Manual) Reactive Lymphs % Monocytes % (Manual) Eosinophils % (Manual) Platelet Estimate Large Platelets Hypochromasia (manual) Poikilocytosis (manual Anisocytosis (manual) Microcytosis (manual) Sodium Potassium Chloride Carbon Dioxide Anion Gap BUN Creatinine Est GFR ( Amer) Est GFR (Non-Af Amer) POC Glucose (mg/dL) 125 H Random Glucose Calcium Phosphorus Magnesium Total Bilirubin AST ALT Alkaline Phosphatase NT-Pro-B Natriuret Pep Total Protein Albumin Globulin Albumin/Globulin Ratio Stool Occult Blood Positive H C. difficile Ag & Toxin Negative 01/28/17 01/28/17 11:22 16:09 WBC RBC Hgb Hct MCV MCH MCHC RDW Plt Count MPV Neut % (Auto) Lymph % (Auto) [place] % (Auto) Eos % (Auto) Baso % (Auto) Neut # Lymph # [place] # Eos # Baso # Neutrophils % (Manual) Band Neutrophils % Lymphocytes % (Manual) Reactive Lymphs % Monocytes % (Manual) Eosinophils % (Manual) Platelet Estimate Large Platelets Hypochromasia (manual) Poikilocytosis (manual Anisocytosis (manual) Microcytosis (manual) Sodium Potassium Chloride Carbon Dioxide Anion Gap BUN Creatinine Est GFR ( Amer) Est GFR (Non-Af Amer) POC Glucose (mg/dL) 147 H 105 Random Glucose Calcium Phosphorus Magnesium Total Bilirubin AST ALT Alkaline Phosphatase NT-Pro-B Natriuret Pep Total Protein Albumin Globulin Albumin/Globulin Ratio Stool Occult Blood C. 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
[2017-01-28] MEDS: Piperacill/Tazo 3.375gm in Dex 3.375 GM/50 ML BAG IVPB SCH (17:36)
--- NOTE | 2017-01-28 18:51 | RAD ---
HISTORY: Follow-up. Technique: Single view portable semi erect @ 18:22 COMPARISON: Multiple serial examinations preceding the most recent study: 01/26/2017 FINDINGS: LUNGS: Near complete opacification of the right dorothy thorax with volume loss likely atelectasis. There is abrupt termination of the right mainstem bronchus suggestive, but not diagnostic of of mucous plugging or postobstructive atelectasis. PLEURA: No significant pleural effusion identified, no pneumothorax apparent. CARDIOVASCULAR: No significant interval change compared to the prior examination(s). PICC line in satisfactory position OSSEOUS STRUCTURES: No significant abnormalities. VISUALIZED UPPER ABDOMEN: Normal. OTHER FINDINGS: None. IMPRESSION: Near complete opacification right dorothy thorax likely atelectasis a new finding compared to the prior study 01/26/2017.
[2017-01-28] MEDS ORDERED: Acetylcysteine 20% Inhal Soln (4ml) INH STA (23:56)
[2017-01-28] MEDS ORDERED: Albuterol-Ipratrop 3 mg / 0.5 (3 ml) UD INH STA (23:59)
[2017-01-29] MEDS: Albuterol 0.083% Inhal Sol (2.5 mg/3 mL) UD INH SCH
[2017-01-29] MEDS: Sucralfate 1 gm/10 ml Oral Susp UD PO SCH ×4 (00:55→18:21)
[2017-01-29] MEDS: Acetylcysteine 20% Inhal Soln (4ml) INH SCH ×4 (01:58→19:20)
[2017-01-29] MEDS: Albuterol-Ipratrop 3 mg / 0.5 (3 ml) UD INH SCH ×4 (01:59→19:20)
[2017-01-29] MEDS: Piperacill/Tazo 3.375gm in Dex 3.375 GM/50 ML BAG IVPB SCH ×3 (02:41→18:23)
[2017-01-29] MEDS: Pantoprazole 40 mg Susp UD PO SCH (05:59)
[2017-01-29 06:04] LABS: BASO % 0.2 % (0.0-2.0); EOS % 0.5 % (0.0-4.0); HEMATOCRIT 26.8 % (34.0-47.0); LYMPH # 0.3 K/uL (1.0-4.3); LYMPH % 4.9 % (20.0-40.0); MEAN CELL VOLUME 96.4 fL (81.0-99.0); MEAN CORPUSCULAR HEMOGLOBIN 33.3 pg (27.0-31.0); MEAN CORPUSCULAR HGB CONC 34.5 g/dL (33.0-37.0); MEAN PLATELET VOLUME 8.9 fL (7.2-11.7); MONO # 0.2 K/uL (0.0-0.8); MONO % 3.3 % (0.0-10.0); NRBC % 0.1 % (0.0-2.0); PLATELET COUNT 90 K/uL (130-400); RED CELL DISTRIBUTION WIDTH 17.6 % (11.5-14.5); WHITE BLOOD COUNT 6.4 K/uL (4.8-10.8)
[2017-01-29 06:20] LABS: CHLORIDE 107 mmol/L (98-107); POTASSIUM 3.3 mmol/L (3.6-5.2); SODIUM 137 mmol/L (132-148)
[2017-01-29 06:22] LABS: ALB/GLOB RATIO 0.9 (1.0-2.1); ALKALINE PHOSPHATASE 67 U/L (38-126); AST/SGOT 15 U/L (14-36); BILIRUBIN,TOTAL 0.9 mg/dL (0.2-1.3); CARBON DIOXIDE 26 mmol/L (22-30); GFR AFRICAN-AMERICAN > 60; TOTAL PROTEIN 4.7 g/dL (6.3-8.3)
[2017-01-29 06:23] LABS: ALT/SGPT 32 U/L (9-52); BLOOD UREA NITROGEN 6 mg/dL (7-17); CALCIUM 7.4 mg/dl (8.6-10.4); GLUCOSE,RANDOM 84 mg/dL (65-105); MAGNESIUM 1.5 mg/dL (1.6-2.3); PHOSPHOROUS 1.8 mg/dL (2.5-4.5)
[2017-01-29] MEDS: Budesonide 0.5 mg/2 ml Inhal Susp UD INH SCH ×2 (07:35→19:20)
[2017-01-29 08:32] LABS: EOSINOPHIL 1 % (0-4); NEUTROPHIL 78 % (50-75); TOTAL CELLS COUNTED 100
--- NOTE | 2017-01-29 09:11 | RAD ---
PROCEDURE: CHEST RADIOGRAPH, 1 VIEW HISTORY: sob COMPARISON: Portable chest 01/28/2017. FINDINGS: Right PICC again evident. LUNGS: Marked improvement in aeration of the right lung is appreciated with significant improvement in right-sided volume loss. Residual airspace disease remaining at the mid to inferior right lung zones predominantly. Mediastinal shift to the right is normalizing. Similar findings are increased at the left base however. PLEURA: Trace bilateral pleural effusions are identified. No pneumothorax bilaterally. CARDIOVASCULAR: Cardiac silhouette remains mildly prominent. No definitive pulmonary venous congestion. OSSEOUS STRUCTURES: No significant abnormalities. VISUALIZED UPPER ABDOMEN: Elevated right hemidiaphragm evident. Inferior vena cava filter again noted at the right paracentral abdomen. OTHER FINDINGS: None. IMPRESSION: Normalizing mediastinal shift due to marked improvement in right-sided atelectasis with residual airspace disease noted at the mid to inferior right lung zones moderately. Left basilar airspace disease has increased however.
[2017-01-29] MEDS: Magnesium Sulfate 1 gm in D5W 1 GM/100 ML BAG IVPB SCH ×2 (10:00→12:42)
[2017-01-29] MEDS ORDERED: Albumin Human 25% (12.5 gm/50 ml) IV ONE ×2 (10:01→10:15)
[2017-01-29] MEDS: Linezolid 600 mg in D5W 300 ml 600 MG/300 ML BAG IVPB SCH ×2 (10:06→22:04)
[2017-01-29] MEDS ORDERED: Potassium Phosphate 15 MMOLE in Sodium Chloride 0.9% 250 ML IVPB ONE (10:30)
--- NOTE | 2017-01-29 11:47 | CP.PCM.PN ---
Subjective - Date & Time of Evaluation Date of Evaluation: 01/29/17 Time of Evaluation: 09:00 - Subjective Subjective: events noted iv rx renewed Objective - Vital Signs/Intake and Output Vital Signs (last 24 hours): Temp Pulse Resp BP Pulse Ox 97.8 F 126 H 34 H 118/79 93 L 01/29/17 08:00 01/29/17 08:03 01/29/17 08:03 01/29/17 10:16 01/29/17 08:03 Intake and Output: 01/29/17 01/29/17 06:59 18:59 Intake Total 580 60 Output Total 525 60 Balance 55 0 - Medications Medications: Current Medications Acetylcysteine (Acetylcysteine 20%) 4 ml INH RQ6 RAUL Albuterol/Ipratropium (Duoneb 3 Mg/0.5 Mg (3 Ml) Ud) 3 ml INH RQ6 RAUL Last Admin: 01/29/17 07:35 Dose: 3 ml Budesonide (Pulmicort Respules) 0.5 mg INH RQ12 RAUL Last Admin: 01/29/17 07:35 Dose: 0.5 mg Linezolid (Zyvox 600mg/300ml D5w) 600 mg in 300 mls @ 200 mls/hr IVPB Q12 RAUL Last Admin: 01/29/17 10:06 Dose: 200 mls/hr Piperacillin Sod/Tazobactam Sod (Zosyn 3.375 Gm Iv Premix) 3.375 gm in 50 mls @ 100 mls/hr IVPB Q8H RAUL Last Admin: 01/29/17 10:08 Dose: 100 mls/hr Potassium Phosphate 15 mmole/ (Sodium Chloride) 255 mls @ 42.5 mls/hr IVPB ONCE ONE Stop: 01/29/17 16:29 Last Admin: 01/29/17 11:00 Dose: 42.5 mls/hr Potassium Chloride (Potassium Chloride 20 Meq/100 Ml) 20 meq in 100 mls @ 50 mls/hr IVPB ONCE ONE Stop: 01/29/17 12:01 Last Admin: 01/29/17 10:21 Dose: 50 mls/hr Morphine Sulfate (Morphine) 1 mg IVP Q6H PRN PRN Reason: pain Last Admin: 01/28/17 17:37 Dose: 1 mg Pantoprazole Sodium (Protonix Susp) 40 mg PO 0600 [facility] Last Admin: 01/29/17 05:59 Dose: 40 mg Rosuvastatin Calcium (Crestor) 5 mg PO HS [facility] Last Admin: 01/28/17 21:45 Dose: 5 mg Sucralfate (Carafate Oral Susp) 1 gm PO Q6 [facility] Last Admin: 01/29/17 05:59 Dose: 1 gm - Labs Labs: 01/29/17 05:51 01/29/17 05:51 PT 9.6 SECONDS (9.7-12.2) L 01/25/17 20:26 INR 0.9 01/25/17 20:26 APTT 25 SECONDS (21-34) 01/25/17 20:26 - Constitutional Appears: Non-toxic, Cachectic, Chronically Ill - Head Exam Head Exam: NORMOCEPHALIC - Eye Exam Eye Exam: PERRL. absent: Scleral icterus - ENT Exam ENT Exam: Mucous Membranes Dry - Neck Exam Neck Exam: absent: Lymphadenopathy - Respiratory Exam Respiratory Exam: Decreased Breath Sounds - Cardiovascular Exam Cardiovascular Exam: REGULAR RHYTHM - GI/Abdominal Exam GI & Abdominal Exam: Distended, Soft - Rectal Exam Rectal Exam: Deferred - Exam Exam: NORMAL INSPECTION Assessment and Plan (1) Bandemia without diagnosis of specific infection Status: Acute (2) Hypercapnia Status: Acute (3) Hypoxia Status: Acute (4) Respiratory distress Status: Acute (5) Altered mental status Status: Resolved (6) Anemia Status: Acute (7) Anemia of chronic disease Status: Acute (8) Dyspnea Status: Acute
--- NOTE | 2017-01-29 16:07 | CP.CCUPN ---
<Breann Kruse E - Last Filed: 01/29/17 16:05> CCU Subjective - Physician Review Subjective (Free Text): Patient was seen and examined at bedside. Patient was resting comfortably in bed while on BIpap. Patient denies any discomfort such as chest pain, SOB, palpitations, nausea, abdominal pain, fever and chills. Patient is able to tolerate diet. CCU Objective - Vital Signs / Intake & Output Vital Signs (Last 4 hours): Vital Signs Pulse Resp BP Pulse Ox 01/29/17 14:03 116 H 21 114/57 L 98 01/29/17 14:00 116 H 21 99 01/29/17 13:03 114 H 19 111/64 88 L 01/29/17 13:00 111 H 20 88 L Intake and Output (Last 8hrs): Intake & Output 01/29/17 01/29/17 01/29/17 06:59 14:59 22:59 Intake Total 250 1130 Output Total 400 550 Balance -150 580 Weight 157 lb 5 oz Intake: Intake, IV Amount 150 550 Right PICC 350 Right Upper arm 150 200 Oral 100 580 Output: Urine 400 550 Urethral ([place]) 400 550 Other: # Bowel Movements 1 1 - Physical Exam Head: Positive for: Atraumatic Extroacular Muscles: Positive for: EOMI Respiratory/Chest: Positive for: Good Air Exchange, Other (Currently on BIpap) Cardiovascular: Positive for: Regular Rate and Rhythm, Normal S1, S2 Abdomen: Positive for: Normal Bowel Sounds. Negative for: Tenderness, Distention Upper Extremity: Positive for: Swelling Lower Extremity: Positive for: Swelling Neurological: Positive for: GCS=15 Skin: Positive for: Warm, Normal Color Psychiatric: Positive for: Alert - Medications Active Medications: Active Medications Generic Name Dose Route Start Last Admin Trade Name Freq PRN Reason Stop Dose Admin Acetylcysteine 4 ml 01/29/17 14:00 01/29/17 14:05 Acetylcysteine 20% INH 4 ml RQ6 RAUL Administration Albuterol/Ipratropium 3 ml 01/29/17 02:00 01/29/17 14:04 Duoneb 3 Mg/0.5 Mg (3 Ml) Ud INH 3 ml RQ6 RAUL Administration Budesonide 0.5 mg 01/26/17 08:00 01/29/17 07:35 Pulmicort Respules INH 0.5 mg RQ12 RAUL Administration Linezolid 600 mg in 300 mls @ 200 mls/hr 01/27/17 22:00 01/29/17 10:06 Zyvox 600mg/300ml D5w IVPB 200 mls/hr Q12 RAUL Administration Piperacillin Sod/Tazobactam Sod 3.375 gm in 50 mls @ 100 mls/hr 01/28/17 18: 30 01/29/17 10:08 Zosyn 3.375 Gm Iv Premix IVPB 100 mls/hr Q8H RAUL Administration Potassium Phosphate 15 mmole/ 255 mls @ 42.5 mls/hr 01/29/17 10:30 01/29/17 11:00 Sodium Chloride IVPB 01/29/17 16:29 42.5 mls/hr ONCE ONE Administration Morphine Sulfate 1 mg 01/28/17 17:28 01/28/17 17:37 Morphine IVP 1 mg Q6H PRN Administration pain Pantoprazole Sodium 40 mg 01/26/17 06:00 01/29/17 05:59 Protonix Susp PO 40 mg 0600 RAUL Administration Rosuvastatin Calcium 5 mg 01/26/17 22:00 01/28/17 21:45 Crestor PO 5 mg HS RAUL Administration Sucralfate 1 gm 01/26/17 06:00 01/29/17 12:45 Carafate Oral Susp PO 1 gm Q6 RAUL Administration - Patient Studies Lab Studies: Microbiology Studies 01/25/17 21:10 Blood Culture - Preliminary Blood-Venous NO GROWTH AFTER 3 DAYS 01/25/17 20:20 Blood Culture - Preliminary Blood-Venous NO GROWTH AFTER 3 DAYS Lab Studies 01/29/17 01/29/17 01/29/17 Range/Units 11:31 07:20 05:51 WBC (4.8-10.8) K/uL RBC (3.80-5.20) Mil/uL Hgb (11.0-16.0) g/dL Hct (34.0-47.0) % MCV (81.0-99.0) fL MCH (27.0-31.0) pg MCHC (33.0-37.0) g/dL RDW (11.5-14.5) % Plt Count (130-400) K/uL MPV (7.2-11.7) fL Neut % (Auto) (50.0-75.0) % Lymph % (Auto) (20.0-40.0) % [place] % (Auto) (0.0-10.0) % Eos % (Auto) (0.0-4.0) % Baso % (Auto) (0.0-2.0) % Neut # (1.8-7.0) K/uL Lymph # (1.0-4.3) K/uL [place] # (0.0-0.8) K/uL Eos # (0.0-0.7) K/uL Baso # (0.0-0.2) K/uL Neutrophils % (Manual) (50-75) % Band Neutrophils % (0-2) % Lymphocytes % (Manual) (20-40) % Monocytes % (Manual) Eosinophils % (Manual) (0-4) % Platelet Estimate (NORMAL) Hypochromasia (manual) Anisocytosis (manual) Sodium 137 (132-148) mmol/L Potassium 3.3 L (3.6-5.2) mmol/L Chloride 107 (98-107) mmol/L Carbon Dioxide 26 (22-30) mmol/L Anion Gap 7 L (10-20) BUN 6 L (7-17) mg/dL Creatinine 0.4 L (0.7-1.2) mg/dL Est GFR ( Amer) > 60 Est GFR (Non-Af Amer) > 60 POC Glucose (mg/dL) 109 100 (65-110) mg/dL Random Glucose 84 (65-105) mg/dL Calcium 7.4 L (8.6-10.4) mg/dl Phosphorus 1.8 L (2.5-4.5) mg/dL Magnesium 1.5 L (1.6-2.3) mg/dL Total Bilirubin 0.9 (0.2-1.3) mg/dL AST 15 (14-36) U/L ALT 32 (9-52) U/L Alkaline Phosphatase 67 (38-126) U/L Total Protein 4.7 L (6.3-8.3) g/dL Albumin 2.2 L (3.5-5.0) g/dL Globulin 2.5 (2.2-3.9) gm/dL Albumin/Globulin Ratio 0.9 L (1.0-2.1) Urine Chloride (32-290) mmol/L 01/29/17 01/28/17 01/28/17 Range/Units 05:51 21:14 16:09 WBC 6.4 (4.8-10.8) K/uL RBC 2.78 L (3.80-5.20) Mil/uL Hgb 9.3 L (11.0-16.0) g/dL Hct 26.8 L (34.0-47.0) % MCV 96.4 (81.0-99.0) fL MCH 33.3 H (27.0-31.0) pg MCHC 34.5 (33.0-37.0) g/dL RDW 17.6 H (11.5-14.5) % Plt Count 90 L (130-400) K/uL MPV 8.9 (7.2-11.7) fL Neut % (Auto) 91.1 H (50.0-75.0) % Lymph % (Auto) 4.9 L (20.0-40.0) % [place] % (Auto) 3.3 (0.0-10.0) % Eos % (Auto) 0.5 (0.0-4.0) % Baso % (Auto) 0.2 (0.0-2.0) % Neut # 5.8 (1.8-7.0) K/uL Lymph # 0.3 L (1.0-4.3) K/uL [place] # 0.2 (0.0-0.8) K/uL Eos # 0.0 (0.0-0.7) K/uL Baso # 0.0 (0.0-0.2) K/uL Neutrophils % (Manual) 78 H (50-75) % Band Neutrophils % 17 H* (0-2) % Lymphocytes % (Manual) 4 L (20-40) % Monocytes % (Manual) TEST NOT PERFORMED Eosinophils % (Manual) 1 (0-4) % Platelet Estimate Decreased L (NORMAL) Hypochromasia (manual) Slight Anisocytosis (manual) Slight Sodium (132-148) mmol/L Potassium (3.6-5.2) mmol/L Chloride (98-107) mmol/L Carbon Dioxide (22-30) mmol/L Anion Gap (10-20) BUN (7-17) mg/dL Creatinine (0.7-1.2) mg/dL Est GFR ( Amer) Est GFR (Non-Af Amer) POC Glucose (mg/dL) 113 H 105 (65-110) mg/dL Random Glucose (65-105) mg/dL Calcium (8.6-10.4) mg/dl Phosphorus (2.5-4.5) mg/dL Magnesium (1.6-2.3) mg/dL Total Bilirubin (0.2-1.3) mg/dL AST (14-36) U/L ALT (9-52) U/L Alkaline Phosphatase (38-126) U/L Total Protein (6.3-8.3) g/dL Albumin (3.5-5.0) g/dL Globulin (2.2-3.9) gm/dL Albumin/Globulin Ratio (1.0-2.1) Urine Chloride (32-290) mmol/L 01/26/17 Range/Units 03:23 WBC (4.8-10.8) K/uL RBC (3.80-5.20) Mil/uL Hgb (11.0-16.0) g/dL Hct (34.0-47.0) % MCV (81.0-99.0) fL MCH (27.0-31.0) pg MCHC (33.0-37.0) g/dL RDW (11.5-14.5) % Plt Count (130-400) K/uL MPV (7.2-11.7) fL Neut % (Auto) (50.0-75.0) % Lymph % (Auto) (20.0-40.0) % [place] % (Auto) (0.0-10.0) % Eos % (Auto) (0.0-4.0) % Baso % (Auto) (0.0-2.0) % Neut # (1.8-7.0) K/uL Lymph # (1.0-4.3) K/uL [place] # (0.0-0.8) K/uL Eos # (0.0-0.7) K/uL Baso # (0.0-0.2) K/uL Neutrophils % (Manual) (50-75) % Band Neutrophils % (0-2) % Lymphocytes % (Manual) (20-40) % Monocytes % (Manual) Eosinophils % (Manual) (0-4) % Platelet Estimate (NORMAL) Hypochromasia (manual) Anisocytosis (manual) Sodium (132-148) mmol/L Potassium (3.6-5.2) mmol/L Chloride (98-107) mmol/L Carbon Dioxide (22-30) mmol/L Anion Gap (10-20) BUN (7-17) mg/dL Creatinine (0.7-1.2) mg/dL Est GFR ( Amer) Est GFR (Non-Af Amer) POC Glucose (mg/dL) (65-110) mg/dL Random Glucose (65-105) mg/dL Calcium (8.6-10.4) mg/dl Phosphorus (2.5-4.5) mg/dL Magnesium (1.6-2.3) mg/dL Total Bilirubin (0.2-1.3) mg/dL AST (14-36) U/L ALT (9-52) U/L Alkaline Phosphatase (38-126) U/L Total Protein (6.3-8.3) g/dL Albumin (3.5-5.0) g/dL Globulin (2.2-3.9) gm/dL Albumin/Globulin Ratio (1.0-2.1) Urine Chloride 117 (32-290) mmol/L Laboratory Results - last 24 hr 01/26/17 01/28/17 01/28/17 03:23 16:09 21:14 WBC RBC Hgb Hct MCV MCH MCHC RDW Plt Count MPV Neut % (Auto) Lymph % (Auto) [place] % (Auto) Eos % (Auto) Baso % (Auto) Neut # Lymph # [place] # Eos # Baso # Neutrophils % (Manual) Band Neutrophils % Lymphocytes % (Manual) Monocytes % (Manual) Eosinophils % (Manual) Platelet Estimate Hypochromasia (manual) Anisocytosis (manual) Sodium Potassium Chloride Carbon Dioxide Anion Gap BUN Creatinine Est GFR ( Amer) Est GFR (Non-Af Amer) POC Glucose (mg/dL) 105 113 H Random Glucose Calcium Phosphorus Magnesium Total Bilirubin AST ALT Alkaline Phosphatase Total Protein Albumin Globulin Albumin/Globulin Ratio Urine Chloride 117 01/29/17 01/29/17 01/29/17 05:51 05:51 07:20 WBC 6.4 RBC 2.78 L Hgb 9.3 L Hct 26.8 L MCV 96.4 MCH 33.3 H MCHC 34.5 RDW 17.6 H Plt Count 90 L MPV 8.9 Neut % (Auto) 91.1 H Lymph % (Auto) 4.9 L [place] % (Auto) 3.3 Eos % (Auto) 0.5 Baso % (Auto) 0.2 Neut # 5.8 Lymph # 0.3 L [place] # 0.2 Eos # 0.0 Baso # 0.0 Neutrophils % (Manual) 78 H Band Neutrophils % 17 H* Lymphocytes % (Manual) 4 L Monocytes % (Manual) TEST NOT PERFORMED Eosinophils % (Manual) 1 Platelet Estimate Decreased L Hypochromasia (manual) Slight Anisocytosis (manual) Slight Sodium 137 Potassium 3.3 L Chloride 107 Carbon Dioxide 26 Anion Gap 7 L BUN 6 L Creatinine 0.4 L Est GFR ( Amer) > 60 Est GFR (Non-Af Amer) > 60 POC Glucose (mg/dL) 100 Random Glucose 84 Calcium 7.4 L Phosphorus 1.8 L Magnesium 1.5 L Total Bilirubin 0.9 AST 15 ALT 32 Alkaline Phosphatase 67 Total Protein 4.7 L Albumin 2.2 L Globulin 2.5 Albumin/Globulin Ratio 0.9 L Urine Chloride 01/29/17 11:31 WBC RBC Hgb Hct MCV MCH MCHC RDW Plt Count MPV Neut % (Auto) Lymph % (Auto) [place] % (Auto) Eos % (Auto) Baso % (Auto) Neut # Lymph # [place] # Eos # Baso # Neutrophils % (Manual) Band Neutrophils % Lymphocytes % (Manual) Monocytes % (Manual) Eosinophils % (Manual) Platelet Estimate Hypochromasia (manual) Anisocytosis (manual) Sodium Potassium Chloride Carbon Dioxide Anion Gap BUN Creatinine Est GFR ( Amer) Est GFR (Non-Af Amer) POC Glucose (mg/dL) 109 Random Glucose Calcium Phosphorus Magnesium Total Bilirubin AST ALT Alkaline Phosphatase Total Protein Albumin Globulin Albumin/Globulin Ratio Urine Chloride Fingerstick Blood Sugar Results: 100 Review of Systems - Constitutional Constitutional: absent: Fever, Chills, Weakness - EENT Eyes: absent: Change in Vision Ears: absent: Dizziness - Cardiovascular Cardiovascular: absent: Chest Pain, Dyspnea, Lightheadedness, Palpitations - Respiratory Respiratory: absent: Dyspnea - Gastrointestinal Gastrointestinal: absent: Abdominal Pain, Cramping, Nausea, Vomiting - Neurological Neurological: absent: Dizziness, Headaches, Weakness - Endocrine Endocrine: Fatigue. 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), GI bleeding who presented with respiratory distress and found to be hypoxic and hypotensive at the usp Plan: Neuro: Alert, awake Cardio: No acute issues, hx of HLD Medication/management; * Crestor 5mg PO HS Pulm: Respiratory distress, hypoxia on admission Medication and management: * Acetylcysteine 20% 4ml INH RQ6 * Albuterol 3mL INH RQ6 * Pulmicort 0.5mg INH RQ12H * Alternating between BIpap and 3L NC GI: Hx of GI bleed * Stool occult blood (Positive, 01/28/17) Medication/Management: * No anticoagulation * Protonix 40mg PO daily * Sucralfate 1gm PO Q6 Endo: No acute issues Renal: Electrolyte imbalance (Hypokalemia, Hypomagnesemia and hypophosphatemia and hypocalcemia): * Electrolytes repleted appropriately * Monitor with am CMP ID: Bandemia, Afebrile * Bandemia trending down * Negative urine culture and blood culture (01/25/17) Medication/Management: * Linezolid 600mg IVPB Q12H * Zosyn 3.375gm IVPB Q8H Prophylaxis: GI: Protonix 40mg PO daily Physical therapy <Davion Asif P - Last Filed: 01/29/17 16:49> CCU Objective - Vital Signs / Intake & Output Vital Signs (Last 4 hours): Vital Signs Temp Pulse Resp BP Pulse Ox 01/29/17 16:03 120 H 32 H 123/73 94 L 01/29/17 16:00 97.7 F 122 H 22 123/73 97 01/29/17 15:03 124 H 32 H 109/59 L 92 L 01/29/17 15:00 123 H 22 94 L 01/29/17 14:03 116 H 21 114/57 L 98 01/29/17 14:00 116 H 21 99 01/29/17 13:03 114 H 19 111/64 88 L 01/29/17 13:00 111 H 20 88 L Intake and Output (Last 8hrs): Intake & Output 01/29/17 01/29/17 01/29/17 06:59 14:59 22:59 Intake Total 250 1130 180 Output Total 400 550 200 Balance -150 580 -20 Weight 157 lb 5 oz Intake: Intake, IV Amount 150 550 Right PICC 350 Right Upper arm 150 200 Oral 100 580 180 Output: Urine 400 550 200 Urethral ([place]) 400 550 200 Other: # Bowel Movements 1 1 - Medications Active Medications: Active Medications Generic Name Dose Route Start Last Admin Trade Name Freq PRN Reason Stop Dose Admin Acetylcysteine 4 ml 01/29/17 14:00 01/29/17 14:05 Acetylcysteine 20% INH 4 ml RQ6 RAUL Administration Albuterol/Ipratropium 3 ml 01/29/17 02:00 01/29/17 14:04 Duoneb 3 Mg/0.5 Mg (3 Ml) Ud INH 3 ml RQ6 RAUL Administration Budesonide 0.5 mg 01/26/17 08:00 01/29/17 07:35 Pulmicort Respules INH 0.5 mg RQ12 RAUL Administration Linezolid 600 mg in 300 mls @ 200 mls/hr 01/27/17 22:00 01/29/17 10:06 Zyvox 600mg/300ml D5w IVPB 200 mls/hr Q12 RAUL Administration Piperacillin Sod/Tazobactam Sod 3.375 gm in 50 mls @ 100 mls/hr 01/28/17 18: 30 01/29/17 10:08 Zosyn 3.375 Gm Iv Premix IVPB 100 mls/hr Q8H RAUL Administration Morphine Sulfate 1 mg 01/28/17 17:28 01/28/17 17:37 Morphine IVP 1 mg Q6H PRN Administration pain Pantoprazole Sodium 40 mg 01/26/17 06:00 01/29/17 05:59 Protonix Susp PO 40 mg 0600 RAUL Administration Rosuvastatin Calcium 5 mg 01/26/17 22:00 01/28/17 21:45 Crestor PO 5 mg HS RAUL Administration Sucralfate 1 gm 01/26/17 06:00 01/29/17 12:45 Carafate Oral Susp PO 1 gm Q6 RAUL Administration - Patient Studies Lab Studies: Microbiology Studies 01/25/17 21:10 Blood Culture - Preliminary Blood-Venous NO GROWTH AFTER 3 DAYS 01/25/17 20:20 Blood Culture - Preliminary Blood-Venous NO GROWTH AFTER 3 DAYS Lab Studies 01/29/17 01/29/17 01/29/17 Range/Units 16:13 11:31 07:20 WBC (4.8-10.8) K/uL RBC (3.80-5.20) Mil/uL Hgb (11.0-16.0) g/dL Hct (34.0-47.0) % MCV (81.0-99.0) fL MCH (27.0-31.0) pg MCHC (33.0-37.0) g/dL RDW (11.5-14.5) % Plt Count (130-400) K/uL MPV (7.2-11.7) fL Neut % (Auto) (50.0-75.0) % Lymph % (Auto) (20.0-40.0) % [place] % (Auto) (0.0-10.0) % Eos % (Auto) (0.0-4.0) % Baso % (Auto) (0.0-2.0) % Neut # (1.8-7.0) K/uL Lymph # (1.0-4.3) K/uL [place] # (0.0-0.8) K/uL Eos # (0.0-0.7) K/uL Baso # (0.0-0.2) K/uL Neutrophils % (Manual) (50-75) % Band Neutrophils % (0-2) % Lymphocytes % (Manual) (20-40) % Monocytes % (Manual) Eosinophils % (Manual) (0-4) % Platelet Estimate (NORMAL) Hypochromasia (manual) Anisocytosis (manual) Sodium (132-148) mmol/L Potassium (3.6-5.2) mmol/L Chloride (98-107) mmol/L Carbon Dioxide (22-30) mmol/L Anion Gap (10-20) BUN (7-17) mg/dL Creatinine (0.7-1.2) mg/dL Est GFR ( Amer) Est GFR (Non-Af Amer) POC Glucose (mg/dL) 189 H 109 100 (65-110) mg/dL Random Glucose (65-105) mg/dL Calcium (8.6-10.4) mg/dl Phosphorus (2.5-4.5) mg/dL Magnesium (1.6-2.3) mg/dL Total Bilirubin (0.2-1.3) mg/dL AST (14-36) U/L ALT (9-52) U/L Alkaline Phosphatase (38-126) U/L Total Protein (6.3-8.3) g/dL Albumin (3.5-5.0) g/dL Globulin (2.2-3.9) gm/dL Albumin/Globulin Ratio (1.0-2.1) Urine Chloride (32-290) mmol/L 01/29/17 01/29/17 01/28/17 Range/Units 05:51 05:51 21:14 WBC 6.4 (4.8-10.8) K/uL RBC 2.78 L (3.80-5.20) Mil/uL Hgb 9.3 L (11.0-16.0) g/dL Hct 26.8 L (34.0-47.0) % MCV 96.4 (81.0-99.0) fL MCH 33.3 H (27.0-31.0) pg MCHC 34.5 (33.0-37.0) g/dL RDW 17.6 H (11.5-14.5) % Plt Count 90 L (130-400) K/uL MPV 8.9 (7.2-11.7) fL Neut % (Auto) 91.1 H (50.0-75.0) % Lymph % (Auto) 4.9 L (20.0-40.0) % [place] % (Auto) 3.3 (0.0-10.0) % Eos % (Auto) 0.5 (0.0-4.0) % Baso % (Auto) 0.2 (0.0-2.0) % Neut # 5.8 (1.8-7.0) K/uL Lymph # 0.3 L (1.0-4.3) K/uL [place] # 0.2 (0.0-0.8) K/uL Eos # 0.0 (0.0-0.7) K/uL Baso # 0.0 (0.0-0.2) K/uL Neutrophils % (Manual) 78 H (50-75) % Band Neutrophils % 17 H* (0-2) % Lymphocytes % (Manual) 4 L (20-40) % Monocytes % (Manual) TEST NOT PERFORMED Eosinophils % (Manual) 1 (0-4) % Platelet Estimate Decreased L (NORMAL) Hypochromasia (manual) Slight Anisocytosis (manual) Slight Sodium 137 (132-148) mmol/L Potassium 3.3 L (3.6-5.2) mmol/L Chloride 107 (98-107) mmol/L Carbon Dioxide 26 (22-30) mmol/L Anion Gap 7 L (10-20) BUN 6 L (7-17) mg/dL Creatinine 0.4 L (0.7-1.2) mg/dL Est GFR ( Amer) > 60 Est GFR (Non-Af Amer) > 60 POC Glucose (mg/dL) 113 H (65-110) mg/dL Random Glucose 84 (65-105) mg/dL Calcium 7.4 L (8.6-10.4) mg/dl Phosphorus 1.8 L (2.5-4.5) mg/dL Magnesium 1.5 L (1.6-2.3) mg/dL Total Bilirubin 0.9 (0.2-1.3) mg/dL AST 15 (14-36) U/L ALT 32 (9-52) U/L Alkaline Phosphatase 67 (38-126) U/L Total Protein 4.7 L (6.3-8.3) g/dL Albumin 2.2 L (3.5-5.0) g/dL Globulin 2.5 (2.2-3.9) gm/dL Albumin/Globulin Ratio 0.9 L (1.0-2.1) Urine Chloride (32-290) mmol/L 01/26/17 Range/Units 03:23 WBC (4.8-10.8) K/uL RBC (3.80-5.20) Mil/uL Hgb (11.0-16.0) g/dL Hct (34.0-47.0) % MCV (81.0-99.0) fL MCH (27.0-31.0) pg MCHC (33.0-37.0) g/dL RDW (11.5-14.5) % Plt Count (130-400) K/uL MPV (7.2-11.7) fL Neut % (Auto) (50.0-75.0) % Lymph % (Auto) (20.0-40.0) % [place] % (Auto) (0.0-10.0) % Eos % (Auto) (0.0-4.0) % Baso % (Auto) (0.0-2.0) % Neut # (1.8-7.0) K/uL Lymph # (1.0-4.3) K/uL [place] # (0.0-0.8) K/uL Eos # (0.0-0.7) K/uL Baso # (0.0-0.2) K/uL Neutrophils % (Manual) (50-75) % Band Neutrophils % (0-2) % Lymphocytes % (Manual) (20-40) % Monocytes % (Manual) Eosinophils % (Manual) (0-4) % Platelet Estimate (NORMAL) Hypochromasia (manual) Anisocytosis (manual) Sodium (132-148) mmol/L Potassium (3.6-5.2) mmol/L Chloride (98-107) mmol/L Carbon Dioxide (22-30) mmol/L Anion Gap (10-20) BUN (7-17) mg/dL Creatinine (0.7-1.2) mg/dL Est GFR ( Amer) Est GFR (Non-Af Amer) POC Glucose (mg/dL) (65-110) mg/dL Random Glucose (65-105) mg/dL Calcium (8.6-10.4) mg/dl Phosphorus (2.5-4.5) mg/dL Magnesium (1.6-2.3) mg/dL Total Bilirubin (0.2-1.3) mg/dL AST (14-36) U/L ALT (9-52) U/L Alkaline Phosphatase (38-126) U/L Total Protein (6.3-8.3) g/dL Albumin (3.5-5.0) g/dL Globulin (2.2-3.9) gm/dL Albumin/Globulin Ratio (1.0-2.1) Urine Chloride 117 (32-290) mmol/L Laboratory Results - last 24 hr 01/26/17 01/28/17 01/29/17 03:23 21:14 05:51 WBC 6.4 RBC 2.78 L Hgb 9.3 L Hct 26.8 L MCV 96.4 MCH 33.3 H MCHC 34.5 RDW 17.6 H Plt Count 90 L MPV 8.9 Neut % (Auto) 91.1 H Lymph % (Auto) 4.9 L [place] % (Auto) 3.3 Eos % (Auto) 0.5 Baso % (Auto) 0.2 Neut # 5.8 Lymph # 0.3 L [place] # 0.2 Eos # 0.0 Baso # 0.0 Neutrophils % (Manual) 78 H Band Neutrophils % 17 H* Lymphocytes % (Manual) 4 L Monocytes % (Manual) TEST NOT PERFORMED Eosinophils % (Manual) 1 Platelet Estimate Decreased L Hypochromasia (manual) Slight Anisocytosis (manual) Slight Sodium Potassium Chloride Carbon Dioxide Anion Gap BUN Creatinine Est GFR ( Amer) Est GFR (Non-Af Amer) POC Glucose (mg/dL) 113 H Random Glucose Calcium Phosphorus Magnesium Total Bilirubin AST ALT Alkaline Phosphatase Total Protein Albumin Globulin Albumin/Globulin Ratio Urine Chloride 117 01/29/17 01/29/17 01/29/17 05:51 07:20 11:31 WBC RBC Hgb Hct MCV MCH MCHC RDW Plt Count MPV Neut % (Auto) Lymph % (Auto) [place] % (Auto) Eos % (Auto) Baso % (Auto) Neut # Lymph # [place] # Eos # Baso # Neutrophils % (Manual) Band Neutrophils % Lymphocytes % (Manual) Monocytes % (Manual) Eosinophils % (Manual) Platelet Estimate Hypochromasia (manual) Anisocytosis (manual) Sodium 137 Potassium 3.3 L Chloride 107 Carbon Dioxide 26 Anion Gap 7 L BUN 6 L Creatinine 0.4 L Est GFR ( Amer) > 60 Est GFR (Non-Af Amer) > 60 POC Glucose (mg/dL) 100 109 Random Glucose 84 Calcium 7.4 L Phosphorus 1.8 L Magnesium 1.5 L Total Bilirubin 0.9 AST 15 ALT 32 Alkaline Phosphatase 67 Total Protein 4.7 L Albumin 2.2 L Globulin 2.5 Albumin/Globulin Ratio 0.9 L Urine Chloride 01/29/17 16:13 WBC RBC Hgb Hct MCV MCH MCHC RDW Plt Count MPV Neut % (Auto) Lymph % (Auto) [place] % (Auto) Eos % (Auto) Baso % (Auto) Neut # Lymph # [place] # Eos # Baso # Neutrophils % (Manual) Band Neutrophils % Lymphocytes % (Manual) Monocytes % (Manual) Eosinophils % (Manual) Platelet Estimate Hypochromasia (manual) Anisocytosis (manual) Sodium Potassium Chloride Carbon Dioxide Anion Gap BUN Creatinine Est GFR ( Amer) Est GFR (Non-Af Amer) POC Glucose (mg/dL) 189 H Random Glucose Calcium Phosphorus Magnesium Total Bilirubin AST ALT Alkaline Phosphatase Total Protein Albumin Globulin Albumin/Globulin Ratio Urine Chloride Critical Care Progress Note - Nutrition Nutrition: Nutrition Category Date Time Status Consistent Carbohydrate [DIET] Diets 01/26/17 Breakfast Active Attending/Attestation - Attestation I have personally seen and examined this patient.: Yes I have fully participated in the care of the patient.: Yes I have reviewed all pertinent clinical information: Yes Notes (Text): Patient RR in 30's, appeared SOB, denied pain, rest of the vs noticed, remains on the Bipap 60%, chest exam was reduced entry b/l in bases, ext/skin shows edema, b/l weakness in the legs, off the heparin as per primary team for concern about occult blood in stool. CXR yesterday showed marked atelectesis on the right side, with improvement today but slight worsening in the left base noticed. Assessment/Plan Resp insufficiency both central but now pulmonary component as above needing bipap, pt on nebs, zosyn, zyvox Anasarca partly from recent pulse dose steroid for MS Low K, mag, phos, albumin replaced and diuresis with lasix due to anasarca H/o MS, paraplegia H/o PE s/p ivc filter.
--- NOTE | 2017-01-29 17:10 | CP.PCM.CON ---
History of Present Illness - History of Present Illness History of Present Illness: This is a 76 year old woman with a positive fecal occult blood test. She is known to me from the last admission, when she was evaluated for a drop in HGB from 16.8 on admission to 7.0 on 01/18/2017. In addition, the stool for occult blood was repeatedly positive: 01/17/17, 01/17, 01/19, 01/28. EGD was performed on 01/17/2017 and showed a small hiatus hernia, 3 mm hyperplastic polyp and nonerosive gastritis, H pylori negative. She was readmitted later in the day of discharge for lethargy, hypotension, tachycardia and hypoxemia (SaO2 61%). She was treated with BiPap. Patient is now more alert and denies having nausea, vomiting, difficulty swallowing, and heartburn. She is not aware of the characteristics of the bowel movements. Review of Systems - Constitutional Constitutional: Anorexia, Fatigue - EENT Eyes: Blurred Vision - Cardiovascular Cardiovascular: absent: Chest Pain - Respiratory Respiratory: Excessive Mucous Production, Change in Mucous Color - Gastrointestinal Gastrointestinal: absent: Abdominal Pain, Dysphagia, Heartburn, Nausea, Vomiting - Reproductive: Female Reproductive:Female: Amenorrhea Past Patient History - Infectious Disease Hx of Infectious Diseases: MRSA - Tetanus Immunizations Tetanus Immunization: Up to Date - Past Medical History & Family History Past Medical History?: Yes - Past Social History Smoking Status: Never Smoked Chewing Tobacco Use: No Alcohol: None Drugs: Denies Home Situation {Lives}: Half-Way Domestic Violence: Negative - CARDIAC Hx Cardiac Disorders: Yes Hx Angina: No Hx Atrial Fibrillation: No (resolved) Hx Cardia Arrhythmia: Yes Hx Congestive Heart Failure: No Hx Hypercholesterolemia: Yes Hx Hypertension: Yes Hx Mitral Valve Prolapse: No Hx Pacemaker: No Hx Peripheral Edema: Yes - PULMONARY Hx Respiratory Disorders: Yes Hx Asthma: Yes Hx Bronchitis: Yes Hx Chronic Obstructive Pulmonary Disease (COPD): Yes Hx Emphysema: No Hx Pneumonia: No Hx Pulmonary Embolism: Yes Hx Respiratory Tract Infection: Yes Hx Sleep Apnea: No - NEUROLOGICAL Hx Neurological Disorder: Yes Hx Alzheimer's Disease: No Hx Dementia: No Hx Migraine: No Hx Multiple Sclerosis: Yes Hx Parkinson's Disease: No Hx Seizures: No Hx Transient Ischemic Attacks (TIA): No Hx Vertigo: No - HEENT Hx HEENT Problems: Yes Hx Blind: No Hx Cataracts: Yes Hx Difficulty Chewing: No Hx Epistaxis: No Hx Glaucoma: No Hx Macular Degeneration: No Other/Comment: wears eyeglasses for reading - RENAL Hx Chronic Kidney Disease: Yes - ENDOCRINE/METABOLIC Hx Endocrine Disorders: No Hx Hyperthyroidism: No Hx Hypothyroidism: No Other/Comment: Osteoporosis/osteoppenia - HEMATOLOGICAL/ONCOLOGICAL Hx Blood Disorders: Yes Hx AIDS: No Hx Anemia: Yes Hx Blood Transfusions: Yes Hx Blood Transfusion Reaction: No - INTEGUMENTARY Hx Dermatological Problems: Yes Hx Eczema: Yes Hx Melanoma: No Hx Psoriasis: No Hx Squamous Cell: No Other/Comment: > hx of garvin hong syndrome, unknown precipitant. > hx of bullous pemphigoid - MUSCULOSKELETAL/RHEUMATOLOGICAL Hx Arthritis: Yes Hx Falls: Yes Hx Fractures: No Hx Osteoporosis: Yes Hx Rheumatoid Arthritis: Yes - GASTROINTESTINAL Hx Gastrointestinal Disorders: Yes Hx Constipation: Yes - GENITOURINARY/GYNECOLOGICAL Hx Genitourinary Disorders: Yes Hx Incontinence: Yes Other/Comment: wears a diaper in the [facility] (as with all patients) - PSYCHIATRIC Hx Psychophysiologic Disorder: Yes Hx Anxiety: Yes Hx Depression: Yes Hx Substance Use: No - SURGICAL HISTORY Hx Surgeries: Yes Other/Comment: IVC filter 5-6 years ago for b/l DVT - ANESTHESIA Hx Anesthesia: Yes Hx Anesthesia Reactions: No Hx Malignant Hyperthermia: No Has any member of the family had a problem w/ anesthesia?: No Meds Allergies/Adverse Reactions: Allergies Allergy/AdvReac Type Severity Reaction Status Date / Time ascorbic acid Allergy Severe ANAPHYLAXIS Verified 01/25/17 19:38 aspirin Allergy RASH Verified 01/25/17 19:38 iodine Allergy RASH Verified 01/25/17 19:38 Ponds cream Allergy Severe ANAPHYLAXIS Uncoded 05/07/16 00:13 - Medications Medications: Current Medications Acetylcysteine (Acetylcysteine 20%) 4 ml INH RQ6 RAUL Last Admin: 01/29/17 14:05 Dose: 4 ml Albuterol/Ipratropium (Duoneb 3 Mg/0.5 Mg (3 Ml) Ud) 3 ml INH RQ6 RAUL Last Admin: 01/29/17 14:04 Dose: 3 ml Budesonide (Pulmicort Respules) 0.5 mg INH RQ12 RAUL Last Admin: 01/29/17 07:35 Dose: 0.5 mg Linezolid (Zyvox 600mg/300ml D5w) 600 mg in 300 mls @ 200 mls/hr IVPB Q12 [facility] Last Admin: 01/29/17 10:06 Dose: 200 mls/hr Piperacillin Sod/Tazobactam Sod (Zosyn 3.375 Gm Iv Premix) 3.375 gm in 50 mls @ 100 mls/hr IVPB Q8H [facility] Last Admin: 01/29/17 10:08 Dose: 100 mls/hr Morphine Sulfate (Morphine) 1 mg IVP Q6H PRN PRN Reason: pain Last Admin: 01/28/17 17:37 Dose: 1 mg Pantoprazole Sodium (Protonix Susp) 40 mg PO 0600 [facility] Last Admin: 01/29/17 05:59 Dose: 40 mg Rosuvastatin Calcium (Crestor) 5 mg PO HS [facility] Last Admin: 01/28/17 21:45 Dose: 5 mg Sucralfate (Carafate Oral Susp) 1 gm PO Q6 [facility] Last Admin: 01/29/17 12:45 Dose: 1 gm Physical Exam - Head Exam Head Exam: ATRAUMATIC, NORMOCEPHALIC - Eye Exam Eye Exam: EOMI, PERRL - Neck Exam Neck exam: Negative for: Lymphadenopathy, Thyromegaly - Respiratory Exam Respiratory Exam: Rhonchi, NORMAL BREATHING PATTERN. absent: Rales, Wheezes - Cardiovascular Exam Cardiovascular Exam: REGULAR RHYTHM, +S1, +S2. absent: Gallop, Rubs, Systolic Murmur - GI/Abdominal Exam GI & Abdominal Exam: Normal Bowel Sounds, Soft. absent: Mass, Organomegaly, Tenderness - Rectal Exam Rectal Exam: Deferred - Extremities Exam Extremities exam: Negative for: calf tenderness, pedal edema Results - Vital Signs Recent Vital Signs: Last Vital Signs Temp 97.7 F 01/29/17 16:00 Pulse 120 H 01/29/17 16:03 Resp 32 H 01/29/17 16:03 BP 123/73 01/29/17 16:03 Pulse Ox 94 L 01/29/17 16:03 - Labs Result Diagrams: 01/29/17 05:51 01/29/17 05:51 Labs: Laboratory Results - last 24 hr 01/26/17 01/28/17 01/29/17 03:23 21:14 05:51 WBC 6.4 RBC 2.78 L Hgb 9.3 L Hct 26.8 L MCV 96.4 MCH 33.3 H MCHC 34.5 RDW 17.6 H Plt Count 90 L MPV 8.9 Neut % (Auto) 91.1 H Lymph % (Auto) 4.9 L [place] % (Auto) 3.3 Eos % (Auto) 0.5 Baso % (Auto) 0.2 Neut # 5.8 Lymph # 0.3 L [place] # 0.2 Eos # 0.0 Baso # 0.0 Neutrophils % (Manual) 78 H Band Neutrophils % 17 H* Lymphocytes % (Manual) 4 L Monocytes % (Manual) TEST NOT PERFORMED Eosinophils % (Manual) 1 Platelet Estimate Decreased L Hypochromasia (manual) Slight Anisocytosis (manual) Slight Sodium Potassium Chloride Carbon Dioxide Anion Gap BUN Creatinine Est GFR ( Amer) Est GFR (Non-Af Amer) POC Glucose (mg/dL) 113 H Random Glucose Calcium Phosphorus Magnesium Total Bilirubin AST ALT Alkaline Phosphatase Total Protein Albumin Globulin Albumin/Globulin Ratio Urine Chloride 117 01/29/17 01/29/17 01/29/17 05:51 07:20 11:31 WBC RBC Hgb Hct MCV MCH MCHC RDW Plt Count MPV Neut % (Auto) Lymph % (Auto) [place] % (Auto) Eos % (Auto) Baso % (Auto) Neut # Lymph # [place] # Eos # Baso # Neutrophils % (Manual) Band Neutrophils % Lymphocytes % (Manual) Monocytes % (Manual) Eosinophils % (Manual) Platelet Estimate Hypochromasia (manual) Anisocytosis (manual) Sodium 137 Potassium 3.3 L Chloride 107 Carbon Dioxide 26 Anion Gap 7 L BUN 6 L Creatinine 0.4 L Est GFR ( Amer) > 60 Est GFR (Non-Af Amer) > 60 POC Glucose (mg/dL) 100 109 Random Glucose 84 Calcium 7.4 L Phosphorus 1.8 L Magnesium 1.5 L Total Bilirubin 0.9 AST 15 ALT 32 Alkaline Phosphatase 67 Total Protein 4.7 L Albumin 2.2 L Globulin 2.5 Albumin/Globulin Ratio 0.9 L Urine Chloride 01/29/17 16:13 WBC RBC Hgb Hct MCV MCH MCHC RDW Plt Count MPV Neut % (Auto) Lymph % (Auto) [place] % (Auto) Eos % (Auto) Baso % (Auto) Neut # Lymph # [place] # Eos # Baso # Neutrophils % (Manual) Band Neutrophils % Lymphocytes % (Manual) Monocytes % (Manual) Eosinophils % (Manual) Platelet Estimate Hypochromasia (manual) Anisocytosis (manual) Sodium Potassium Chloride Carbon Dioxide Anion Gap BUN Creatinine Est GFR ( Amer) Est GFR (Non-Af Amer) POC Glucose (mg/dL) 189 H Random Glucose Calcium Phosphorus Magnesium Total Bilirubin AST ALT Alkaline Phosphatase Total Protein Albumin Globulin Albumin/Globulin Ratio Urine Chloride Assessment & Plan (1) Occult blood in stools Assessment and Plan: Patient has had multiple positive tests for fecal occult blood and should have colonoscopy when stable. Status: Acute
[2017-01-29] MEDS ORDERED: Magnesium Sulfate 1 gm in D5W 1 GM/100 ML BAG IVPB ONE (17:49)
[2017-01-29] MEDS ORDERED: POTASSIUM PHOSPHATE IV ONE (18:00)
[2017-01-29] MEDS ORDERED: DEXTROSE IV ONE (18:00)
[2017-01-29] MEDS ORDERED: NS IV ONE (18:00)
--- NOTE | 2017-01-29 18:05 | CP.PCM.PN ---
Subjective - Date & Time of Evaluation Date of Evaluation: 01/29/17 Time of Evaluation: 18:04 - Subjective Subjective: Pt seen at bedside. Comfortable today even with the bipap off. Holding her sats at 97% though HR up at 127. Appears more relaxed today. ' > Around midnight last night, after reviewing the day's events, I noted the order for a CXR around 6 pm. Reviewing the results, I noted the "near opacification of the R dorothy thorax" with the surmised cause. I called the ICU and confirmed that no intervention had yet been done, so I asked that stat resp tech support be called to give neb tx for meds I was about to order and perfor chest PT on this pt. Orders were carried out, and pt appears much improved today and tolerating periods without bipap. There ws return of aeration to the R lung, though infiltrates still appreciated. Will monitor pt's oxygenation status after bipap. . Objective - Vital Signs/Intake and Output Vital Signs (last 24 hours): Temp Pulse Resp BP Pulse Ox 97.7 F 120 H 32 H 123/73 94 L 01/29/17 16:00 01/29/17 16:03 01/29/17 16:03 01/29/17 16:03 01/29/17 16:03 Intake and Output: 01/29/17 01/29/17 06:59 18:59 Intake Total 580 1310 Output Total 525 750 Balance 55 560 - Medications Medications: Current Medications Acetylcysteine (Acetylcysteine 20%) 4 ml INH RQ6 RAUL Last Admin: 01/29/17 14:05 Dose: 4 ml Albuterol/Ipratropium (Duoneb 3 Mg/0.5 Mg (3 Ml) Ud) 3 ml INH RQ6 RAUL Last Admin: 01/29/17 14:04 Dose: 3 ml Budesonide (Pulmicort Respules) 0.5 mg INH RQ12 [facility] Last Admin: 01/29/17 07:35 Dose: 0.5 mg Linezolid (Zyvox 600mg/300ml D5w) 600 mg in 300 mls @ 200 mls/hr IVPB Q12 [facility] Last Admin: 01/29/17 10:06 Dose: 200 mls/hr Piperacillin Sod/Tazobactam Sod (Zosyn 3.375 Gm Iv Premix) 3.375 gm in 50 mls @ 100 mls/hr IVPB Q8H [facility] Last Admin: 01/29/17 10:08 Dose: 100 mls/hr Magnesium Sulfate/Dextrose (Magnesium Sulfate 1 Gm/100 Ml D5w) 1 gm in 100 mls @ 200 mls/hr IVPB ONCE ONE Stop: 01/29/17 18:18 Potassium Phosphate 15 mmole/ (Dextrose/Sodium Chloride) 1,005 mls @ 60 mls/hr IV .[id number] ONE Stop: 01/30/17 10:44 Morphine Sulfate (Morphine) 1 mg IVP Q6H PRN PRN Reason: pain Last Admin: 01/28/17 17:37 Dose: 1 mg Pantoprazole Sodium (Protonix Susp) 40 mg PO 0600 [facility] Last Admin: 01/29/17 05:59 Dose: 40 mg Rosuvastatin Calcium (Crestor) 5 mg PO HS [facility] Last Admin: 01/28/17 21:45 Dose: 5 mg Sucralfate (Carafate Oral Susp) 1 gm PO Q6 [facility] Last Admin: 01/29/17 12:45 Dose: 1 gm - Labs Labs: 01/29/17 05:51 01/29/17 05:51 PT 9.6 SECONDS (9.7-12.2) L 01/25/17 20:26 INR 0.9 01/25/17 20:26 APTT 25 SECONDS (21-34) 01/25/17 20:26 - Constitutional Appears: No Acute Distress, Other (sensorium still slightly obtunded though responds appropriately to instructions and questions) - Head Exam Head Exam: NORMAL INSPECTION, NORMOCEPHALIC - Eye Exam Eye Exam: EOMI, Normal appearance Pupil Exam: NORMAL ACCOMODATION - ENT Exam ENT Exam: Mucous Membranes Moist, Normal Exam - Neck Exam Neck Exam: Full ROM - Respiratory Exam Respiratory Exam: Decreased Breath Sounds Additional comments: + rales, R>L; no accessory muscle use, though respirations shallow, pt arousable L - Cardiovascular Exam Cardiovascular Exam: REGULAR RHYTHM - GI/Abdominal Exam GI & Abdominal Exam: Hypoactive Bowel Sounds Additional comments: hungry! - Extremities Exam Extremities Exam: Normal Inspection - Back Exam Additional comments: + pressure ulcers at buttocks and sacrum; see wound care nurse notes - Neurological Exam Neurological Exam: Alert, CN II-XII Intact Neuro motor strength exam: Left Upper Extremity: 3, Right Upper Extremity: 3, Left Lower Extremity: 2/1, Right Lower Extremity: 2/1 - Psychiatric Exam Psychiatric exam: Depressed Additional comments: fatigued - Skin Skin Exam: Dry, Intact, Normal Color Assessment and Plan (1) Respiratory distress Assessment & Plan: improving, on nasal cannula tonight Status: Acute (2) Bandemia without diagnosis of specific infection Assessment & Plan: cotinues to decline Status: Acute (3) Hypocalcemia Assessment & Plan: being repleted Status: Acute (4) Hypophosphatemia Assessment & Plan: IV repletion in progress Status: Acute (5) Multiple sclerosis Assessment & Plan: appears progerssing Status: Chronic - Assessment and Plan (Free Text) Assessment: debility: plan on transfering to floor to observe if she does not desaturate at night. Also initiate PT and OT
[2017-01-29] MEDS ORDERED: Potassium Phosphate 30 MMOLE in Dextrose 5%/0.9% NS 1,000 ML IV ONE (18:30)
--- NOTE | 2017-01-29 19:27 | CP.PCM.PN ---
Subjective - Date & Time of Evaluation Date of Evaluation: 01/29/17 Time of Evaluation: 19:26 - Subjective Subjective: Patient does not want to be intubated. Does not want any x-rays done at this time. On BiPAP. Poor intake noted. Does not want any aggressive treatment at this time. On examination: Vital signs are mildly tachycardic, respiratory distress noted. Regular heart sound. Edema noted. Assessment and recommendation: 76-year-old female with multiple sclerosis, hypertension, deep venous thrombosis , probably embolism, IVC filter admitted with acute pneumonia, complicating with the chronicus. Insufficiency. Overall prognosis is poor Objective - Vital Signs/Intake and Output Vital Signs (last 24 hours): Temp Pulse Resp BP Pulse Ox 97.7 F 117 H 26 H 124/64 95 01/29/17 16:00 01/29/17 19:03 01/29/17 19:03 01/29/17 19:03 01/29/17 19:03 Intake and Output: 01/29/17 01/30/17 18:59 06:59 Intake Total 1470 0 Output Total 2300 200 Balance -830 -200 - Medications Medications: Current Medications Acetylcysteine (Acetylcysteine 20%) 4 ml INH RQ6 RAUL Last Admin: 01/29/17 19:20 Dose: 4 ml Albuterol/Ipratropium (Duoneb 3 Mg/0.5 Mg (3 Ml) Ud) 3 ml INH RQ6 RAUL Last Admin: 01/29/17 19:20 Dose: 3 ml Budesonide (Pulmicort Respules) 0.5 mg INH RQ12 RAUL Last Admin: 01/29/17 19:20 Dose: 0.5 mg Linezolid (Zyvox 600mg/300ml D5w) 600 mg in 300 mls @ 200 mls/hr IVPB Q12 [facility] Last Admin: 01/29/17 10:06 Dose: 200 mls/hr Piperacillin Sod/Tazobactam Sod (Zosyn 3.375 Gm Iv Premix) 3.375 gm in 50 mls @ 100 mls/hr IVPB Q8H [facility] Last Admin: 01/29/17 18:23 Dose: 100 mls/hr Potassium Phosphate 30 mmole/ (Dextrose/Sodium Chloride) 1,010 mls @ 60 mls/hr IV .[id number] ONE Stop: 01/30/17 11:19 Last Admin: 01/29/17 19:22 Dose: 60 mls/hr Morphine Sulfate (Morphine) 1 mg IVP Q6H PRN PRN Reason: pain Last Admin: 01/29/17 18:19 Dose: 1 mg Pantoprazole Sodium (Protonix Susp) 40 mg PO 0600 [facility] Last Admin: 01/29/17 05:59 Dose: 40 mg Rosuvastatin Calcium (Crestor) 5 mg PO HS [facility] Last Admin: 01/28/17 21:45 Dose: 5 mg Sucralfate (Carafate Oral Susp) 1 gm PO Q6 [facility]UL Last Admin: 01/29/17 18:21 Dose: 1 gm - Labs Labs: 01/29/17 05:51 01/29/17 05:51 PT 9.6 SECONDS (9.7-12.2) L 01/25/17 20:26 INR 0.9 01/25/17 20:26 APTT 25 SECONDS (21-34) 01/25/17 20:26
[2017-01-30] MEDS: Acetylcysteine 20% Inhal Soln (4ml) INH SCH ×4 (02:05→19:03)
[2017-01-30] MEDS: Albuterol-Ipratrop 3 mg / 0.5 (3 ml) UD INH SCH ×4 (02:05→19:01)
[2017-01-30] MEDS: Piperacill/Tazo 3.375gm in Dex 3.375 GM/50 ML BAG IVPB SCH ×3 (02:24→17:31)
[2017-01-30 04:58] LABS: VMA/G CREATININE 37.5 mg/g creat (1.1-4.1)
[2017-01-30] MEDS: Pantoprazole 40 mg Susp UD PO SCH (05:54)
[2017-01-30] MEDS: Sucralfate 1 gm/10 ml Oral Susp UD PO SCH ×4 (05:54→17:23)
[2017-01-30 06:35] LABS: BASO % 0.3 % (0.0-2.0); EOS % 0.7 % (0.0-4.0); HEMATOCRIT 25.3 % (34.0-47.0); LYMPH # 0.3 K/uL (1.0-4.3); LYMPH % 7.8 % (20.0-40.0); MEAN CORPUSCULAR HEMOGLOBIN 32.2 pg (27.0-31.0); MEAN CORPUSCULAR HGB CONC 33.6 g/dL (33.0-37.0); MONO # 0.1 K/uL (0.0-0.8); MONO % 2.6 % (0.0-10.0); NRBC % 0.1 % (0.0-2.0); PLATELET COUNT 78 K/uL (130-400); RED CELL DISTRIBUTION WIDTH 17.1 % (11.5-14.5); WHITE BLOOD COUNT 3.9 K/uL (4.8-10.8)
[2017-01-30 06:43] LABS: CHLORIDE 98 mmol/L (98-107); SODIUM 136 mmol/L (132-148)
[2017-01-30 06:44] LABS: POTASSIUM 3.2 mmol/L (3.6-5.2)
[2017-01-30 06:46] LABS: ALB/GLOB RATIO 0.9 (1.0-2.1); ALKALINE PHOSPHATASE 57 U/L (38-126); AST/SGOT 13 U/L (14-36); BLOOD UREA NITROGEN 6 mg/dL (7-17); CARBON DIOXIDE 30 mmol/L (22-30); GFR AFRICAN-AMERICAN > 60; TOTAL PROTEIN 4.9 g/dL (6.3-8.3)
[2017-01-30 06:47] LABS: ALT/SGPT 31 U/L (9-52); CALCIUM 7.3 mg/dl (8.6-10.4); GLUCOSE,RANDOM 141 mg/dL (65-105); MAGNESIUM 1.9 mg/dL (1.6-2.3); PHOSPHOROUS 2.8 mg/dL (2.5-4.5)
[2017-01-30 06:54] LABS: IRON 20 ug/dL (37-170)
[2017-01-30] MEDS: Budesonide 0.5 mg/2 ml Inhal Susp UD INH SCH ×2 (07:38→19:02)
[2017-01-30 08:21] LABS: NEUTROPHIL 70 % (50-75); TOTAL CELLS COUNTED 100
[2017-01-30] MEDS: Linezolid 600 mg in D5W 300 ml 600 MG/300 ML BAG IVPB SCH ×2 (09:10→21:29)
--- NOTE | 2017-01-30 12:02 | RAD ---
Chest x-ray single frontal view History: Pneumonia. Pleural effusion. Mucous plug. Comparison: 01/29/2017 Findings: Lines and tubes in stable position. Interval near complete opacification of the right dorothy thorax. Patchy consolidative changes at the left lung base with small left pleural effusion. Prominent diffuse increased interstitial lung markings. Biapical pleural thickening with upper lobe granulomatous changes. Tracheal deviation to the right. Calcification at the aortic knob. Cardiomegaly. Degenerative changes in the spine and shoulders. Impression: Lines and tubes in stable position. Interval near complete opacification of the right dorothy thorax. Patchy consolidative changes at the left lung base with small left pleural effusion. Prominent diffuse increased interstitial lung markings. Biapical pleural thickening with upper lobe granulomatous changes. Tracheal deviation to the right. Calcification at the aortic knob. Cardiomegaly.
--- NOTE | 2017-01-30 12:48 | CP.CCUPN ---
<Breann Kruse E - Last Filed: 01/30/17 13:07> CCU Subjective - Physician Review Subjective (Free Text): Patient was seen and examined at bedside. Patient was resting comfortably in bed and in a very pleasant mood. Patient denies any discomfort such as chest pain, SOB, palpitations, nausea, abdominal pain, fever and chills. Patient is able to tolerate diet. Patient states that she is very comfortable. CCU Objective - Vital Signs / Intake & Output Vital Signs (Last 4 hours): Vital Signs Pulse Resp BP Pulse Ox 01/30/17 12:04 136 H 16 127/80 100 01/30/17 12:00 135 H 36 H 100 01/30/17 11:04 135 H 20 113/65 100 01/30/17 11:00 133 H 24 100 01/30/17 10:03 127 H 19 126/72 100 01/30/17 10:00 126 H 22 100 01/30/17 09:03 131 H 37 H 126/62 96 01/30/17 09:00 127 H 37 H 98 Intake and Output (Last 8hrs): Intake & Output 01/29/17 01/30/17 01/30/17 22:59 06:59 14:59 Intake Total 780 1090 740 Output Total 1505 625 400 Balance -725 465 340 Weight 156 lb 2 oz Intake: Intake, IV Amount 340 890 380 Right PICC 100 250 Right Upper arm 240 640 380 Oral 440 200 360 Output: Urine 1505 625 400 Urethral ([place]) 1505 625 400 Stool 0 Emesis 0 Other: # Bowel Movements 0 1 - Physical Exam Head: Positive for: Atraumatic Extroacular Muscles: Positive for: EOMI Respiratory/Chest: Positive for: Good Air Exchange (anteriorly and on 3L NC ), Other (Currently on BIpap) Cardiovascular: Positive for: Regular Rate and Rhythm, Normal S1, S2 Abdomen: Positive for: Normal Bowel Sounds. Negative for: Tenderness, Distention Upper Extremity: Positive for: Swelling (Improving ) Lower Extremity: Positive for: Swelling (Improving ) Neurological: Positive for: GCS=15 Skin: Positive for: Warm, Normal Color Psychiatric: Positive for: Alert, Oriented x 3 - Medications Active Medications: Active Medications Generic Name Dose Route Start Last Admin Trade Name Freq PRN Reason Stop Dose Admin Acetylcysteine 4 ml 01/29/17 14:00 01/30/17 07:38 Acetylcysteine 20% INH 4 ml RQ6 RAUL Administration Albuterol/Ipratropium 3 ml 01/29/17 02:00 01/30/17 07:38 Duoneb 3 Mg/0.5 Mg (3 Ml) Ud INH 3 ml RQ6 RAUL Administration Budesonide 0.5 mg 01/26/17 08:00 01/30/17 07:38 Pulmicort Respules INH 0.5 mg RQ12 RAUL Administration Linezolid 600 mg in 300 mls @ 200 mls/hr 01/27/17 22:00 01/30/17 09:10 Zyvox 600mg/300ml D5w IVPB 200 mls/hr Q12 RAUL Administration Piperacillin Sod/Tazobactam Sod 3.375 gm in 50 mls @ 100 mls/hr 01/28/17 18: 30 01/30/17 09:29 Zosyn 3.375 Gm Iv Premix IVPB 100 mls/hr Q8H RAUL Administration Potassium Chloride 20 meq in 100 mls @ 50 mls/hr 01/30/17 13:00 01/30/17 12: 31 Potassium Chloride 20 Meq/100 Ml IVPB 01/30/17 14:59 Not Given ONCE ONE Morphine Sulfate 1 mg 01/28/17 17:28 01/29/17 18:19 Morphine IVP 1 mg Q6H PRN Administration pain Pantoprazole Sodium 40 mg 01/26/17 06:00 01/30/17 05:54 Protonix Susp PO 40 mg 0600 RAUL Administration Rosuvastatin Calcium 5 mg 01/26/17 22:00 01/29/17 22:04 Crestor PO 5 mg HS RAUL Administration Sucralfate 1 gm 01/26/17 06:00 01/30/17 12:20 Carafate Oral Susp PO Not Given Q6 RAUL - Patient Studies Lab Studies: Microbiology Studies 01/25/17 21:10 Blood Culture - Preliminary Blood-Venous NO GROWTH AFTER 4 DAYS 01/25/17 20:20 Blood Culture - Preliminary Blood-Venous NO GROWTH AFTER 4 DAYS Lab Studies 01/30/17 01/30/17 01/30/17 Range/Units 11:45 07:20 06:19 WBC (4.8-10.8) K/uL RBC (3.80-5.20) Mil/uL Hgb (11.0-16.0) g/dL Hct (34.0-47.0) % MCV (81.0-99.0) fL MCH (27.0-31.0) pg MCHC (33.0-37.0) g/dL RDW (11.5-14.5) % Plt Count (130-400) K/uL MPV (7.2-11.7) fL Neut % (Auto) (50.0-75.0) % Lymph % (Auto) (20.0-40.0) % Harney % (Auto) (0.0-10.0) % Eos % (Auto) (0.0-4.0) % Baso % (Auto) (0.0-2.0) % Neut # (1.8-7.0) K/uL Lymph # (1.0-4.3) K/uL Harney # (0.0-0.8) K/uL Eos # (0.0-0.7) K/uL Baso # (0.0-0.2) K/uL Neutrophils % (Manual) (50-75) % Band Neutrophils % (0-2) % Lymphocytes % (Manual) (20-40) % Monocytes % (Manual) (0-10) % Platelet Estimate (NORMAL) Basophilic Stippling Anisocytosis (manual) Sodium (132-148) mmol/L Potassium (3.6-5.2) mmol/L Chloride (98-107) mmol/L Carbon Dioxide (22-30) mmol/L Anion Gap (10-20) BUN (7-17) mg/dL Creatinine (0.7-1.2) mg/dL Est GFR ( Amer) Est GFR (Non-Af Amer) POC Glucose (mg/dL) 228 H 130 H (65-110) mg/dL Random Glucose (65-105) mg/dL Calcium (8.6-10.4) mg/dl Phosphorus (2.5-4.5) mg/dL Magnesium (1.6-2.3) mg/dL Iron (37-170) ug/dL TIBC (250-450) ug/dL % Saturation (20-55) Ferritin 304.0 ng/mL Total Bilirubin (0.2-1.3) mg/dL AST (14-36) U/L ALT (9-52) U/L Alkaline Phosphatase (38-126) U/L NT-Pro-B Natriuret Pep (0-900) pg/mL Total Protein (6.3-8.3) g/dL Albumin (3.5-5.0) g/dL Globulin (2.2-3.9) gm/dL Albumin/Globulin Ratio (1.0-2.1) Urine Chloride (32-290) mmol/L VMA/Creatinine Ratio (1.1-4.1) mg/g creat 01/30/17 01/30/17 01/30/17 Range/Units 06:19 06:19 06:15 WBC 3.9 L (4.8-10.8) K/uL RBC 2.64 L (3.80-5.20) Mil/uL Hgb 8.5 L (11.0-16.0) g/dL Hct 25.3 L (34.0-47.0) % MCV 96.0 (81.0-99.0) fL MCH 32.2 H (27.0-31.0) pg MCHC 33.6 (33.0-37.0) g/dL RDW 17.1 H (11.5-14.5) % Plt Count 78 L (130-400) K/uL MPV 9.0 (7.2-11.7) fL Neut % (Auto) 88.6 H (50.0-75.0) % Lymph % (Auto) 7.8 L (20.0-40.0) % Harney % (Auto) 2.6 (0.0-10.0) % Eos % (Auto) 0.7 (0.0-4.0) % Baso % (Auto) 0.3 (0.0-2.0) % Neut # 3.5 (1.8-7.0) K/uL Lymph # 0.3 L (1.0-4.3) K/uL Harney # 0.1 (0.0-0.8) K/uL Eos # 0.0 (0.0-0.7) K/uL Baso # 0.0 (0.0-0.2) K/uL Neutrophils % (Manual) 70 (50-75) % Band Neutrophils % 13 H* (0-2) % Lymphocytes % (Manual) 14 L (20-40) % Monocytes % (Manual) 3 (0-10) % Platelet Estimate Decreased L (NORMAL) Basophilic Stippling Slight Anisocytosis (manual) Slight Sodium 136 (132-148) mmol/L Potassium 3.2 L (3.6-5.2) mmol/L Chloride 98 (98-107) mmol/L Carbon Dioxide 30 (22-30) mmol/L Anion Gap 11 (10-20) BUN 6 L (7-17) mg/dL Creatinine 0.4 L (0.7-1.2) mg/dL Est GFR ( Amer) > 60 Est GFR (Non-Af Amer) > 60 POC Glucose (mg/dL) (65-110) mg/dL Random Glucose 141 H (65-105) mg/dL Calcium 7.3 L (8.6-10.4) mg/dl Phosphorus 2.8 (2.5-4.5) mg/dL Magnesium 1.9 (1.6-2.3) mg/dL Iron 20 L (37-170) ug/dL TIBC 152 L (250-450) ug/dL % Saturation 13 L (20-55) Ferritin ng/mL Total Bilirubin 1.0 (0.2-1.3) mg/dL AST 13 L (14-36) U/L ALT 31 (9-52) U/L Alkaline Phosphatase 57 (38-126) U/L NT-Pro-B Natriuret Pep 2490 H (0-900) pg/mL Total Protein 4.9 L (6.3-8.3) g/dL Albumin 2.3 L (3.5-5.0) g/dL Globulin 2.6 (2.2-3.9) gm/dL Albumin/Globulin Ratio 0.9 L (1.0-2.1) Urine Chloride (32-290) mmol/L VMA/Creatinine Ratio (1.1-4.1) mg/g creat 01/29/17 01/29/17 01/26/17 Range/Units 21:16 16:13 03:23 WBC (4.8-10.8) K/uL RBC (3.80-5.20) Mil/uL Hgb (11.0-16.0) g/dL Hct (34.0-47.0) % MCV (81.0-99.0) fL MCH (27.0-31.0) pg MCHC (33.0-37.0) g/dL RDW (11.5-14.5) % Plt Count (130-400) K/uL MPV (7.2-11.7) fL Neut % (Auto) (50.0-75.0) % Lymph % (Auto) (20.0-40.0) % [place] % (Auto) (0.0-10.0) % Eos % (Auto) (0.0-4.0) % Baso % (Auto) (0.0-2.0) % Neut # (1.8-7.0) K/uL Lymph # (1.0-4.3) K/uL Harney # (0.0-0.8) K/uL Eos # (0.0-0.7) K/uL Baso # (0.0-0.2) K/uL Neutrophils % (Manual) (50-75) % Band Neutrophils % (0-2) % Lymphocytes % (Manual) (20-40) % Monocytes % (Manual) (0-10) % Platelet Estimate (NORMAL) Basophilic Stippling Anisocytosis (manual) Sodium (132-148) mmol/L Potassium (3.6-5.2) mmol/L Chloride (98-107) mmol/L Carbon Dioxide (22-30) mmol/L Anion Gap (10-20) BUN (7-17) mg/dL Creatinine (0.7-1.2) mg/dL Est GFR ( Amer) Est GFR (Non-Af Amer) POC Glucose (mg/dL) 139 H 189 H (65-110) mg/dL Random Glucose (65-105) mg/dL Calcium (8.6-10.4) mg/dl Phosphorus (2.5-4.5) mg/dL Magnesium (1.6-2.3) mg/dL Iron (37-170) ug/dL TIBC (250-450) ug/dL % Saturation (20-55) Ferritin ng/mL Total Bilirubin (0.2-1.3) mg/dL AST (14-36) U/L ALT (9-52) U/L Alkaline Phosphatase (38-126) U/L NT-Pro-B Natriuret Pep (0-900) pg/mL Total Protein (6.3-8.3) g/dL Albumin (3.5-5.0) g/dL Globulin (2.2-3.9) gm/dL Albumin/Globulin Ratio (1.0-2.1) Urine Chloride 117 (32-290) mmol/L VMA/Creatinine Ratio 37.5 H (1.1-4.1) mg/g creat Laboratory Results - last 24 hr 01/26/17 01/29/17 01/29/17 03:23 16:13 21:16 WBC RBC Hgb Hct MCV MCH MCHC RDW Plt Count MPV Neut % (Auto) Lymph % (Auto) [place] % (Auto) Eos % (Auto) Baso % (Auto) Neut # Lymph # [place] # Eos # Baso # Neutrophils % (Manual) Band Neutrophils % Lymphocytes % (Manual) Monocytes % (Manual) Platelet Estimate Basophilic Stippling Anisocytosis (manual) Sodium Potassium Chloride Carbon Dioxide Anion Gap BUN Creatinine Est GFR ( Amer) Est GFR (Non-Af Amer) POC Glucose (mg/dL) 189 H 139 H Random Glucose Calcium Phosphorus Magnesium Iron TIBC % Saturation Ferritin Total Bilirubin AST ALT Alkaline Phosphatase NT-Pro-B Natriuret Pep Total Protein Albumin Globulin Albumin/Globulin Ratio Urine Chloride 117 VMA/Creatinine Ratio 37.5 H 01/30/17 01/30/17 01/30/17 06:15 06:19 06:19 WBC 3.9 L RBC 2.64 L Hgb 8.5 L Hct 25.3 L MCV 96.0 MCH 32.2 H MCHC 33.6 RDW 17.1 H Plt Count 78 L MPV 9.0 Neut % (Auto) 88.6 H Lymph % (Auto) 7.8 L [place] % (Auto) 2.6 Eos % (Auto) 0.7 Baso % (Auto) 0.3 Neut # 3.5 Lymph # 0.3 L [place]ney # 0.1 Eos # 0.0 Baso # 0.0 Neutrophils % (Manual) 70 Band Neutrophils % 13 H* Lymphocytes % (Manual) 14 L Monocytes % (Manual) 3 Platelet Estimate Decreased L Basophilic Stippling Slight Anisocytosis (manual) Slight Sodium 136 Potassium 3.2 L Chloride 98 Carbon Dioxide 30 Anion Gap 11 BUN 6 L Creatinine 0.4 L Est GFR ( Amer) > 60 Est GFR (Non-Af Amer) > 60 POC Glucose (mg/dL) Random Glucose 141 H Calcium 7.3 L Phosphorus 2.8 Magnesium 1.9 Iron 20 L TIBC 152 L % Saturation 13 L Ferritin Total Bilirubin 1.0 AST 13 L ALT 31 Alkaline Phosphatase 57 NT-Pro-B Natriuret Pep 2490 H Total Protein 4.9 L Albumin 2.3 L Globulin 2.6 Albumin/Globulin Ratio 0.9 L Urine Chloride VMA/Creatinine Ratio 01/30/17 01/30/17 01/30/17 06:19 07:20 11:45 WBC RBC Hgb Hct MCV MCH MCHC RDW Plt Count MPV Neut % (Auto) Lymph % (Auto) [place] % (Auto) Eos % (Auto) Baso % (Auto) Neut # Lymph # [place] # Eos # Baso # Neutrophils % (Manual) Band Neutrophils % Lymphocytes % (Manual) Monocytes % (Manual) Platelet Estimate Basophilic Stippling Anisocytosis (manual) Sodium Potassium Chloride Carbon Dioxide Anion Gap BUN Creatinine Est GFR ( Amer) Est GFR (Non-Af Amer) POC Glucose (mg/dL) 130 H 228 H Random Glucose Calcium Phosphorus Magnesium Iron TIBC % Saturation Ferritin 304.0 Total Bilirubin AST ALT Alkaline Phosphatase NT-Pro-B Natriuret Pep Total Protein Albumin Globulin Albumin/Globulin Ratio Urine Chloride VMA/Creatinine Ratio Fingerstick Blood Sugar Results: 130 Review of Systems - Constitutional Constitutional: absent: Fever, Chills, Sweats, Weakness - EENT Eyes: absent: Blurred Vision, Change in Vision Ears: absent: Dizziness - Cardiovascular Cardiovascular: absent: Chest Pain, Diaphoresis, Dyspnea, Lightheadedness, Palpitations, Syncope - Respiratory Respiratory: absent: Dyspnea, Wheezing - Gastrointestinal Gastrointestinal: absent: Abdominal Pain, Nausea, Vomiting - Musculoskeletal Musculoskeletal: absent: Numbness, Tingling - Neurological Neurological: absent: Dizziness, Numbness, Headaches, Syncope, Weakness - Endocrine Endocrine: Fatigue. 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), GI bleeding who presented with respiratory distress and found to be hypoxic and hypotensive at the [place] [facility] Plan: Neuro: Alert, awake Cardio: No acute issues, hx of HLD Medication/management; * Crestor 5mg PO HS Pulm: Respiratory distress, hypoxia on admission ( Pneumonia) Chest X-ray: Patchy consolidative changes at the left lung base with small left Pleural effusion Medication and management: * 3L NC * Acetylcysteine 20% 4ml INH RQ6 * Albuterol 3mL INH RQ6 * Pulmicort 0.5mg INH RQ12H * Alternating between BIpap and 3L NC * Linezolid 600mg IVPB Q12H * Zosyn 3.375gm IVPB Q8H GI: Hx of GI bleed * Stool occult blood (Positive, 01/28/17) Medication/Management: * No anticoagulation * Protonix 40mg PO daily * Sucralfate 1gm PO Q6 Endo: No acute issues Renal: Electrolyte imbalance (Hypokalemia and hypocalcemia): * Hypomagnesemia and hypophosphatemia, resolved * Electrolytes repleted appropriately * Monitor with [facility] ID: Pneumonia, Bandemia, Afebrile Chest X-ray: Patchy consolidative changes at the left lung base with small left Pleural effusion (01/30/17) * Bandemia trending down * Negative urine culture and blood culture (01/25/17) Medication/Management: * Linezolid 600mg IVPB Q12H * Zosyn 3.375gm IVPB Q8H Prophylaxis: DVT: Anticoagulation contraindicated due to positive stool occult (01/28/17) GI: Protonix 40mg PO daily PT/OT <Corona Payne S - Last Filed: 01/30/17 17:36> CCU Objective - Vital Signs / Intake & Output Vital Signs (Last 4 hours): Vital Signs Temp Pulse Resp BP Pulse Ox 01/30/17 17:03 131 H 43 H 125/62 93 L 01/30/17 17:00 132 H 27 H 95 01/30/17 16:04 126 H 37 H 118/56 L 96 01/30/17 16:00 99.8 F H 125 H 31 H 96 01/30/17 15:03 117 H 18 122/65 100 01/30/17 15:00 110 H 23 99 01/30/17 14:48 142 H 25 H 128/58 L 96 01/30/17 14:04 146 H 23 147/73 99 01/30/17 14:00 142 H 39 H 100 Intake and Output (Last 8hrs): Intake & Output 01/30/17 01/30/17 01/30/17 06:59 14:59 22:59 Intake Total 1090 980 30 Output Total 625 550 150 Balance 465 430 -120 Weight 156 lb 2 oz Intake: Intake, IV Amount 890 500 0 Right PICC 250 Right Upper arm 640 500 0 Oral 200 480 30 Output: Urine 625 550 150 Urethral ([place]) 625 550 150 Stool 0 0 Emesis 0 0 Other: # Bowel Movements 1 - Medications Active Medications: Active Medications Generic Name Dose Route Start Last Admin Trade Name Freq PRN Reason Stop Dose Admin Acetylcysteine 4 ml 01/29/17 14:00 01/30/17 13:27 Acetylcysteine 20% INH 4 ml RQ6 RAUL Administration Albuterol/Ipratropium 3 ml 01/29/17 02:00 01/30/17 13:27 Duoneb 3 Mg/0.5 Mg (3 Ml) Ud INH 3 ml RQ6 RAUL Administration Budesonide 0.5 mg 01/26/17 08:00 01/30/17 07:38 Pulmicort Respules INH 0.5 mg RQ12 RAUL Administration Linezolid 600 mg in 300 mls @ 200 mls/hr 01/27/17 22:00 01/30/17 09:10 Zyvox 600mg/300ml D5w IVPB 200 mls/hr Q12 RAUL Administration Piperacillin Sod/Tazobactam Sod 3.375 gm in 50 mls @ 100 mls/hr 01/28/17 18: 30 01/30/17 17:31 Zosyn 3.375 Gm Iv Premix IVPB 100 mls/hr Q8H RAUL Administration Morphine Sulfate 1 mg 01/28/17 17:28 01/30/17 14:03 Morphine IVP 1 mg Q6H PRN Administration pain Pantoprazole Sodium 40 mg 01/26/17 06:00 01/30/17 05:54 Protonix Susp PO 40 mg 0600 RAUL Administration Rosuvastatin Calcium 5 mg 01/26/17 22:00 01/29/17 22:04 Crestor PO 5 mg HS RAUL Administration Sucralfate 1 gm 01/26/17 06:00 01/30/17 17:23 Carafate Oral Susp PO Not Given Q6 RAUL - Patient Studies Lab Studies: Microbiology Studies 01/25/17 21:10 Blood Culture - Preliminary Blood-Venous NO GROWTH AFTER 4 DAYS 01/25/17 20:20 Blood Culture - Preliminary Blood-Venous NO GROWTH AFTER 4 DAYS Lab Studies 01/30/17 01/30/17 01/30/17 Range/Units 16:18 11:45 07:20 WBC (4.8-10.8) K/uL RBC (3.80-5.20) Mil/uL Hgb (11.0-16.0) g/dL Hct (34.0-47.0) % MCV (81.0-99.0) fL MCH (27.0-31.0) pg MCHC (33.0-37.0) g/dL RDW (11.5-14.5) % Plt Count (130-400) K/uL MPV (7.2-11.7) fL Neut % (Auto) (50.0-75.0) % Lymph % (Auto) (20.0-40.0) % [place] % (Auto) (0.0-10.0) % Eos % (Auto) (0.0-4.0) % Baso % (Auto) (0.0-2.0) % Neut # (1.8-7.0) K/uL Lymph # (1.0-4.3) K/uL Harney # (0.0-0.8) K/uL Eos # (0.0-0.7) K/uL Baso # (0.0-0.2) K/uL Neutrophils % (Manual) (50-75) % Band Neutrophils % (0-2) % Lymphocytes % (Manual) (20-40) % Monocytes % (Manual) (0-10) % Platelet Estimate (NORMAL) Basophilic Stippling Anisocytosis (manual) Sodium (132-148) mmol/L Potassium (3.6-5.2) mmol/L Chloride (98-107) mmol/L Carbon Dioxide (22-30) mmol/L Anion Gap (10-20) BUN (7-17) mg/dL Creatinine (0.7-1.2) mg/dL Est GFR ( Amer) Est GFR (Non-Af Amer) POC Glucose (mg/dL) 106 228 H 130 H (65-110) mg/dL Random Glucose (65-105) mg/dL Calcium (8.6-10.4) mg/dl Phosphorus (2.5-4.5) mg/dL Magnesium (1.6-2.3) mg/dL Iron (37-170) ug/dL TIBC (250-450) ug/dL % Saturation (20-55) Ferritin ng/mL Total Bilirubin (0.2-1.3) mg/dL AST (14-36) U/L ALT (9-52) U/L Alkaline Phosphatase (38-126) U/L NT-Pro-B Natriuret Pep (0-900) pg/mL Total Protein (6.3-8.3) g/dL Albumin (3.5-5.0) g/dL Globulin (2.2-3.9) gm/dL Albumin/Globulin Ratio (1.0-2.1) VMA/Creatinine Ratio (1.1-4.1) mg/g creat 01/30/17 01/30/17 01/30/17 Range/Units 06:19 06:19 06:19 WBC (4.8-10.8) K/uL RBC (3.80-5.20) Mil/uL Hgb (11.0-16.0) g/dL Hct (34.0-47.0) % MCV (81.0-99.0) fL MCH (27.0-31.0) pg MCHC (33.0-37.0) g/dL RDW (11.5-14.5) % Plt Count (130-400) K/uL MPV (7.2-11.7) fL Neut % (Auto) (50.0-75.0) % Lymph % (Auto) (20.0-40.0) % [place]ney % (Auto) (0.0-10.0) % Eos % (Auto) (0.0-4.0) % Baso % (Auto) (0.0-2.0) % Neut # (1.8-7.0) K/uL Lymph # (1.0-4.3) K/uL Harney # (0.0-0.8) K/uL Eos # (0.0-0.7) K/uL Baso # (0.0-0.2) K/uL Neutrophils % (Manual) (50-75) % Band Neutrophils % (0-2) % Lymphocytes % (Manual) (20-40) % Monocytes % (Manual) (0-10) % Platelet Estimate (NORMAL) Basophilic Stippling Anisocytosis (manual) Sodium 136 (132-148) mmol/L Potassium 3.2 L (3.6-5.2) mmol/L Chloride 98 (98-107) mmol/L Carbon Dioxide 30 (22-30) mmol/L Anion Gap 11 (10-20) BUN 6 L (7-17) mg/dL Creatinine 0.4 L (0.7-1.2) mg/dL Est GFR ( Amer) > 60 Est GFR (Non-Af Amer) > 60 POC Glucose (mg/dL) (65-110) mg/dL Random Glucose 141 H (65-105) mg/dL Calcium 7.3 L (8.6-10.4) mg/dl Phosphorus 2.8 (2.5-4.5) mg/dL Magnesium 1.9 (1.6-2.3) mg/dL Iron 20 L (37-170) ug/dL TIBC 152 L (250-450) ug/dL % Saturation 13 L (20-55) Ferritin 304.0 ng/mL Total Bilirubin 1.0 (0.2-1.3) mg/dL AST 13 L (14-36) U/L ALT 31 (9-52) U/L Alkaline Phosphatase 57 (38-126) U/L NT-Pro-B Natriuret Pep 2490 H (0-900) pg/mL Total Protein 4.9 L (6.3-8.3) g/dL Albumin 2.3 L (3.5-5.0) g/dL Globulin 2.6 (2.2-3.9) gm/dL Albumin/Globulin Ratio 0.9 L (1.0-2.1) VMA/Creatinine Ratio (1.1-4.1) mg/g creat 01/30/17 01/29/17 01/26/17 Range/Units 06:15 21:16 03:23 WBC 3.9 L (4.8-10.8) K/uL RBC 2.64 L (3.80-5.20) Mil/uL Hgb 8.5 L (11.0-16.0) g/dL Hct 25.3 L (34.0-47.0) % MCV 96.0 (81.0-99.0) fL MCH 32.2 H (27.0-31.0) pg MCHC 33.6 (33.0-37.0) g/dL RDW 17.1 H (11.5-14.5) % Plt Count 78 L (130-400) K/uL MPV 9.0 (7.2-11.7) fL Neut % (Auto) 88.6 H (50.0-75.0) % Lymph % (Auto) 7.8 L (20.0-40.0) % Harney % (Auto) 2.6 (0.0-10.0) % Eos % (Auto) 0.7 (0.0-4.0) % Baso % (Auto) 0.3 (0.0-2.0) % Neut # 3.5 (1.8-7.0) K/uL Lymph # 0.3 L (1.0-4.3) K/uL Harney # 0.1 (0.0-0.8) K/uL Eos # 0.0 (0.0-0.7) K/uL Baso # 0.0 (0.0-0.2) K/uL Neutrophils % (Manual) 70 (50-75) % Band Neutrophils % 13 H* (0-2) % Lymphocytes % (Manual) 14 L (20-40) % Monocytes % (Manual) 3 (0-10) % Platelet Estimate Decreased L (NORMAL) Basophilic Stippling Slight Anisocytosis (manual) Slight Sodium (132-148) mmol/L Potassium (3.6-5.2) mmol/L Chloride (98-107) mmol/L Carbon Dioxide (22-30) mmol/L Anion Gap (10-20) BUN (7-17) mg/dL Creatinine (0.7-1.2) mg/dL Est GFR ( Amer) Est GFR (Non-Af Amer) POC Glucose (mg/dL) 139 H (65-110) mg/dL Random Glucose (65-105) mg/dL Calcium (8.6-10.4) mg/dl Phosphorus (2.5-4.5) mg/dL Magnesium (1.6-2.3) mg/dL Iron (37-170) ug/dL TIBC (250-450) ug/dL % Saturation (20-55) Ferritin ng/mL Total Bilirubin (0.2-1.3) mg/dL AST (14-36) U/L ALT (9-52) U/L Alkaline Phosphatase (38-126) U/L NT-Pro-B Natriuret Pep (0-900) pg/mL Total Protein (6.3-8.3) g/dL Albumin (3.5-5.0) g/dL Globulin (2.2-3.9) gm/dL Albumin/Globulin Ratio (1.0-2.1) VMA/Creatinine Ratio 37.5 H (1.1-4.1) mg/g creat Laboratory Results - last 24 hr 01/26/17 01/29/17 01/30/17 03:23 21:16 06:15 WBC 3.9 L RBC 2.64 L Hgb 8.5 L Hct 25.3 L MCV 96.0 MCH 32.2 H MCHC 33.6 RDW 17.1 H Plt Count 78 L MPV 9.0 Neut % (Auto) 88.6 H Lymph % (Auto) 7.8 L Harney % (Auto) 2.6 Eos % (Auto) 0.7 Baso % (Auto) 0.3 Neut # 3.5 Lymph # 0.3 L Harney # 0.1 Eos # 0.0 Baso # 0.0 Neutrophils % (Manual) 70 Band Neutrophils % 13 H* Lymphocytes % (Manual) 14 L Monocytes % (Manual) 3 Platelet Estimate Decreased L Basophilic Stippling Slight Anisocytosis (manual) Slight Sodium Potassium Chloride Carbon Dioxide Anion Gap BUN Creatinine Est GFR ( Amer) Est GFR (Non-Af Amer) POC Glucose (mg/dL) 139 H Random Glucose Calcium Phosphorus Magnesium Iron TIBC % Saturation Ferritin Total Bilirubin AST ALT Alkaline Phosphatase NT-Pro-B Natriuret Pep Total Protein Albumin Globulin Albumin/Globulin Ratio VMA/Creatinine Ratio 37.5 H 10/11/17 10/11/17 10/11/17 06:19 06:19 06:19 WBC RBC Hgb Hct MCV MCH MCHC RDW Plt Count MPV Neut % (Auto) Lymph % (Auto) Harney % (Auto) Eos % (Auto) Baso % (Auto) Neut # Lymph # Harney # Eos # Baso # Neutrophils % (Manual) Band Neutrophils % Lymphocytes % (Manual) Monocytes % (Manual) Platelet Estimate Basophilic Stippling Anisocytosis (manual) Sodium 136 Potassium 3.2 L Chloride 98 Carbon Dioxide 30 Anion Gap 11 BUN 6 L Creatinine 0.4 L Est GFR ( Amer) > 60 Est GFR (Non-Af Amer) > 60 POC Glucose (mg/dL) Random Glucose 141 H Calcium 7.3 L Phosphorus 2.8 Magnesium 1.9 Iron 20 L TIBC 152 L % Saturation 13 L Ferritin 304.0 Total Bilirubin 1.0 AST 13 L ALT 31 Alkaline Phosphatase 57 NT-Pro-B Natriuret Pep 2490 H Total Protein 4.9 L Albumin 2.3 L Globulin 2.6 Albumin/Globulin Ratio 0.9 L VMA/Creatinine Ratio 01/30/17 01/30/17 01/30/17 07:20 11:45 16:18 WBC RBC Hgb Hct MCV MCH MCHC RDW Plt Count MPV Neut % (Auto) Lymph % (Auto) Harney % (Auto) Eos % (Auto) Baso % (Auto) Neut # Lymph # Harney # Eos # Baso # Neutrophils % (Manual) Band Neutrophils % Lymphocytes % (Manual) Monocytes % (Manual) Platelet Estimate Basophilic Stippling Anisocytosis (manual) Sodium Potassium Chloride Carbon Dioxide Anion Gap BUN Creatinine Est GFR ( Amer) Est GFR (Non-Af Amer) POC Glucose (mg/dL) 130 H 228 H 106 Random Glucose Calcium Phosphorus Magnesium Iron TIBC % Saturation Ferritin Total Bilirubin AST ALT Alkaline Phosphatase NT-Pro-B Natriuret Pep Total Protein Albumin Globulin Albumin/Globulin Ratio VMA/Creatinine Ratio Critical Care Progress Note - Nutrition Nutrition: Nutrition Category Date Time Status Consistent Carbohydrate [DIET] Diets 01/26/17 Breakfast Active Attending/Attestation - Attestation I have personally seen and examined this patient.: Yes I have fully participated in the care of the patient.: Yes I have reviewed all pertinent clinical information: Yes Notes (Text): 01/30/17 17:34 Patient seen and examined in the intensive care unit. Case discussed with house staff in the morning. Patient is awake and responsive Refusing CAT scan of chest, suctioning and chest PT Patient does not want intubation or aggressive intervention Continue nebulizer treatment and Mucomyst Continue antibiotics Palliative care evaluation
[2017-01-30] MEDS ORDERED: Metoprolol 1 mg/ml Inj IVP ONE (15:00)
--- NOTE | 2017-01-30 16:30 | CP.PCM.PN ---
Subjective - Date & Time of Evaluation Date of Evaluation: 01/30/17 Time of Evaluation: 16:28 - Subjective Subjective: Patient is lethargic but arousable. She denies having nausea, vomiting, abdominal pain. Objective - Vital Signs/Intake and Output Vital Signs (last 24 hours): Temp Pulse Resp BP Pulse Ox 98.4 F 117 H 18 122/65 100 01/30/17 04:00 01/30/17 15:03 01/30/17 15:03 01/30/17 15:03 01/30/17 15:03 Intake and Output: 01/30/17 01/30/17 06:59 18:59 Intake Total 1530 980 Output Total 1450 600 Balance 80 380 - Medications Medications: Current Medications Acetylcysteine (Acetylcysteine 20%) 4 ml INH RQ6 RAUL Last Admin: 01/30/17 13:27 Dose: 4 ml Albuterol/Ipratropium (Duoneb 3 Mg/0.5 Mg (3 Ml) Ud) 3 ml INH RQ6 RAUL Last Admin: 01/30/17 13:27 Dose: 3 ml Budesonide (Pulmicort Respules) 0.5 mg INH RQ12 RAUL Last Admin: 01/30/17 07:38 Dose: 0.5 mg Linezolid (Zyvox 600mg/300ml D5w) 600 mg in 300 mls @ 200 mls/hr IVPB Q12 RAUL Last Admin: 01/30/17 09:10 Dose: 200 mls/hr Piperacillin Sod/Tazobactam Sod (Zosyn 3.375 Gm Iv Premix) 3.375 gm in 50 mls @ 100 mls/hr IVPB Q8H RAUL Last Admin: 01/30/17 09:29 Dose: 100 mls/hr Morphine Sulfate (Morphine) 1 mg IVP Q6H PRN PRN Reason: pain Last Admin: 01/30/17 14:03 Dose: 1 mg Pantoprazole Sodium (Protonix Susp) 40 mg PO 0600 [facility]UL Last Admin: 01/30/17 05:54 Dose: 40 mg Rosuvastatin Calcium (Crestor) 5 mg PO HS RAUL Last Admin: 01/29/17 22:04 Dose: 5 mg Sucralfate (Carafate Oral Susp) 1 gm PO Q6 RAUL Last Admin: 01/30/17 12:20 Dose: Not Given - Labs Labs: 01/30/17 06:15 01/30/17 06:19 PT 9.6 SECONDS (9.7-12.2) L 01/25/17 20:26 INR 0.9 01/25/17 20:26 APTT 25 SECONDS (21-34) 01/25/17 20:26 - Constitutional Appears: No Acute Distress - Head Exam Head Exam: ATRAUMATIC, NORMOCEPHALIC - Eye Exam Eye Exam: EOMI - Neck Exam Neck Exam: absent: Lymphadenopathy, Thyromegaly - Respiratory Exam Respiratory Exam: NORMAL BREATHING PATTERN. absent: Rales, Rhonchi, Wheezes - Cardiovascular Exam Cardiovascular Exam: REGULAR RHYTHM, +S1, +S2. absent: Gallop, Rubs, Murmur - GI/Abdominal Exam GI & Abdominal Exam: Soft, Normal Bowel Sounds. absent: Tenderness, Mass, Organomegaly - Rectal Exam Rectal Exam: Deferred - Extremities Exam Extremities Exam: absent: Calf Tenderness, Pedal Edema Assessment and Plan (1) Occult blood in stools Assessment & Plan: Repeat CBC shows that the HGB is down to 8.5, but there has been a corresponding drop in WBC count to 3.9 and platelet count to 78,000, so that patient is now pancytopenic. Recommend hematology consult. Colonoscopy will be scheduled when patient is stable and cleared by cardiology and pulmonary. Status: Acute
--- NOTE | 2017-01-30 17:01 | CP.PCM.PN ---
Subjective - Date & Time of Evaluation Date of Evaluation: 01/30/17 Time of Evaluation: 09:00 - Subjective Subjective: events noted afebrile weak lethargic Objective - Vital Signs/Intake and Output Vital Signs (last 24 hours): Temp Pulse Resp BP Pulse Ox 98.4 F 117 H 18 122/65 100 01/30/17 04:00 01/30/17 15:03 01/30/17 15:03 01/30/17 15:03 01/30/17 15:03 Intake and Output: 01/30/17 01/30/17 06:59 18:59 Intake Total 1530 980 Output Total 1450 600 Balance 80 380 - Medications Medications: Current Medications Acetylcysteine (Acetylcysteine 20%) 4 ml INH RQ6 RAUL Last Admin: 01/30/17 13:27 Dose: 4 ml Albuterol/Ipratropium (Duoneb 3 Mg/0.5 Mg (3 Ml) Ud) 3 ml INH RQ6 RAUL Last Admin: 01/30/17 13:27 Dose: 3 ml Budesonide (Pulmicort Respules) 0.5 mg INH RQ12 RAUL Last Admin: 01/30/17 07:38 Dose: 0.5 mg Linezolid (Zyvox 600mg/300ml D5w) 600 mg in 300 mls @ 200 mls/hr IVPB Q12 [facility] Last Admin: 01/30/17 09:10 Dose: 200 mls/hr Piperacillin Sod/Tazobactam Sod (Zosyn 3.375 Gm Iv Premix) 3.375 gm in 50 mls @ 100 mls/hr IVPB Q8H [facility]UL Last Admin: 01/30/17 09:29 Dose: 100 mls/hr Morphine Sulfate (Morphine) 1 mg IVP Q6H PRN PRN Reason: pain Last Admin: 01/30/17 14:03 Dose: 1 mg Pantoprazole Sodium (Protonix Susp) 40 mg PO 0600 [facility] Last Admin: 01/30/17 05:54 Dose: 40 mg Rosuvastatin Calcium (Crestor) 5 mg PO HS RAUL Last Admin: 01/29/17 22:04 Dose: 5 mg Sucralfate (Carafate Oral Susp) 1 gm PO Q6 RAUL Last Admin: 01/30/17 12:20 Dose: Not Given - Labs Labs: 01/30/17 06:15 01/30/17 06:19 PT 9.6 SECONDS (9.7-12.2) L 01/25/17 20:26 INR 0.9 01/25/17 20:26 APTT 25 SECONDS (21-34) 01/25/17 20:26 - Constitutional Appears: Non-toxic, Cachectic, Chronically Ill - Head Exam Head Exam: ATRAUMATIC, NORMAL INSPECTION, NORMOCEPHALIC - Eye Exam Eye Exam: PERRL. absent: Scleral icterus - ENT Exam ENT Exam: Mucous Membranes Dry - Neck Exam Neck Exam: absent: Lymphadenopathy - Respiratory Exam Respiratory Exam: Decreased Breath Sounds - Cardiovascular Exam Cardiovascular Exam: REGULAR RHYTHM - GI/Abdominal Exam GI & Abdominal Exam: Distended, Soft - Rectal Exam Rectal Exam: Deferred - Exam Exam: NORMAL INSPECTION - Extremities Exam Extremities Exam: Pedal Edema - Back Exam Back Exam: absent: CVA tenderness (L), CVA tenderness (R) - Neurological Exam Neurological Exam: Alert, Awake Assessment and Plan (1) Bandemia without diagnosis of specific infection Status: Acute (2) Hypercapnia Status: Acute (3) Hypoxia Status: Acute (4) Respiratory distress Status: Acute (5) Altered mental status Status: Resolved (6) Anemia Status: Acute (7) Anemia of chronic disease Status: Acute (8) Dyspnea Status: Acute - Assessment and Plan (Free Text) Assessment: cultures neg thus far will d/c zyvox in view of pancytopenia cont rx pneumonia
--- NOTE | 2017-01-30 17:37 | CP.PCM.CON ---
History of Present Illness - History of Present Illness History of Present Illness: Palliative consult Requested by Breann DO Reason; Goals of care Patient is a 76 yo admitted from [place] with lethargy. Patient was discharged just about 5 days ago from this hospital where she was treated for hypercapnic respiratory failure. Upon admission, CXR was suggestive of atelectasis. Patient was found to have MRSA in the nares and placed on Zyvox IV. Per Doctor Dumont, patient's condition is chronic and progressive and patient asked not to be resuscitated if her condition becomes irreversible. The form was left on chart for daughter to sign. I was called to assist with the process. PMH: MS, RA, osteoporosis, anemia, anxiety, HTN, COPD Soc. Hx: [facility] halfway resident Fam. Hx: denied by the daughter Review of Systems - Review of Systems All systems: reviewed and no additional remarkable complaints except Review of Systems: ROS obtained from nursing, no acute events over night. Past Patient History - Infectious Disease Hx of Infectious Diseases: MRSA - Tetanus Immunizations Tetanus Immunization: Up to Date - Past Medical History & Family History Past Medical History?: Yes - Past Social History Smoking Status: Never Smoked Chewing Tobacco Use: No Alcohol: None Drugs: Denies Home Situation {Lives}: Snf Domestic Violence: Negative - CARDIAC Hx Cardiac Disorders: Yes Hx Angina: No Hx Atrial Fibrillation: No (resolved) Hx Cardia Arrhythmia: Yes Hx Congestive Heart Failure: No Hx Hypercholesterolemia: Yes Hx Hypertension: Yes Hx Mitral Valve Prolapse: No Hx Pacemaker: No Hx Peripheral Edema: Yes - PULMONARY Hx Respiratory Disorders: Yes Hx Asthma: Yes Hx Bronchitis: Yes Hx Chronic Obstructive Pulmonary Disease (COPD): Yes Hx Emphysema: No Hx Pneumonia: No Hx Pulmonary Embolism: Yes Hx Respiratory Tract Infection: Yes Hx Sleep Apnea: No - NEUROLOGICAL Hx Neurological Disorder: Yes Hx Alzheimer's Disease: No Hx Dementia: No Hx Migraine: No Hx Multiple Sclerosis: Yes Hx Parkinson's Disease: No Hx Seizures: No Hx Transient Ischemic Attacks (TIA): No Hx Vertigo: No - HEENT Hx HEENT Problems: Yes Hx Blind: No Hx Cataracts: Yes Hx Difficulty Chewing: No Hx Epistaxis: No Hx Glaucoma: No Hx Macular Degeneration: No Other/Comment: wears eyeglasses for reading - RENAL Hx Chronic Kidney Disease: Yes - ENDOCRINE/METABOLIC Hx Endocrine Disorders: No Hx Hyperthyroidism: No Hx Hypothyroidism: No Other/Comment: Osteoporosis/osteoppenia - HEMATOLOGICAL/ONCOLOGICAL Hx Blood Disorders: Yes Hx AIDS: No Hx Anemia: Yes Hx Blood Transfusions: Yes Hx Blood Transfusion Reaction: No - INTEGUMENTARY Hx Dermatological Problems: Yes Hx Eczema: Yes Hx Melanoma: No Hx Psoriasis: No Hx Squamous Cell: No Other/Comment: > hx of garvin hong syndrome, unknown precipitant. > hx of bullous pemphigoid - MUSCULOSKELETAL/RHEUMATOLOGICAL Hx Arthritis: Yes Hx Falls: Yes Hx Fractures: No Hx Osteoporosis: Yes Hx Rheumatoid Arthritis: Yes - GASTROINTESTINAL Hx Gastrointestinal Disorders: Yes Hx Constipation: Yes - GENITOURINARY/GYNECOLOGICAL Hx Genitourinary Disorders: Yes Hx Incontinence: Yes Other/Comment: wears a diaper in the halfway (as with all patients) - PSYCHIATRIC Hx Psychophysiologic Disorder: Yes Hx Anxiety: Yes Hx Depression: Yes Hx Substance Use: No - SURGICAL HISTORY Hx Surgeries: Yes Other/Comment: IVC filter 5-6 years ago for b/l DVT - ANESTHESIA Hx Anesthesia: Yes Hx Anesthesia Reactions: No Hx Malignant Hyperthermia: No Has any member of the family had a problem w/ anesthesia?: No Meds Allergies/Adverse Reactions: Allergies Allergy/AdvReac Type Severity Reaction Status Date / Time ascorbic acid Allergy Severe ANAPHYLAXIS Verified 01/25/17 19:38 aspirin Allergy RASH Verified 01/25/17 19:38 iodine Allergy RASH Verified 01/25/17 19:38 Ponds cream Allergy Severe ANAPHYLAXIS Uncoded 05/07/16 00:13 - Medications Medications: Current Medications Acetylcysteine (Acetylcysteine 20%) 4 ml INH RQ6 RAUL Last Admin: 01/30/17 13:27 Dose: 4 ml Albuterol/Ipratropium (Duoneb 3 Mg/0.5 Mg (3 Ml) Ud) 3 ml INH RQ6 RAUL Last Admin: 01/30/17 13:27 Dose: 3 ml Budesonide (Pulmicort Respules) 0.5 mg INH RQ12 RAUL Last Admin: 01/30/17 07:38 Dose: 0.5 mg Linezolid (Zyvox 600mg/300ml D5w) 600 mg in 300 mls @ 200 mls/hr IVPB Q12 RAUL Last Admin: 01/30/17 09:10 Dose: 200 mls/hr Piperacillin Sod/Tazobactam Sod (Zosyn 3.375 Gm Iv Premix) 3.375 gm in 50 mls @ 100 mls/hr IVPB Q8H [facility] Last Admin: 01/30/17 17:31 Dose: 100 mls/hr Morphine Sulfate (Morphine) 1 mg IVP Q6H PRN PRN Reason: pain Last Admin: 01/30/17 14:03 Dose: 1 mg Pantoprazole Sodium (Protonix Susp) 40 mg PO 0600 [facility] Last Admin: 01/30/17 05:54 Dose: 40 mg Rosuvastatin Calcium (Crestor) 5 mg PO HS [facility] Last Admin: 01/29/17 22:04 Dose: 5 mg Sucralfate (Carafate Oral Susp) 1 gm PO Q6 [facility] Last Admin: 01/30/17 17:23 Dose: Not Given Physical Exam - Constitutional Appears: Chronically Ill - Head Exam Head Exam: ATRAUMATIC, NORMAL INSPECTION, NORMOCEPHALIC - Eye Exam Eye Exam: EOMI, Normal appearance, PERRL Pupil Exam: NORMAL ACCOMODATION, PERRL - ENT Exam ENT Exam: Mucous Membranes Moist, Normal Exam - Neck Exam Neck exam: Positive for: Normal Inspection - Respiratory Exam Respiratory Exam: Decreased Breath Sounds, NORMAL BREATHING PATTERN - Cardiovascular Exam Cardiovascular Exam: Tachycardia, REGULAR RHYTHM - GI/Abdominal Exam GI & Abdominal Exam: Hypoactive Bowel Sounds - Rectal Exam Rectal Exam: Deferred - Extremities Exam Extremities exam: Positive for: normal inspection, pedal edema - Back Exam Back exam: NORMAL INSPECTION - Neurological Exam Neurological exam: Alert - Psychiatric Exam Psychiatric exam: Flat Affect - Skin Skin Exam: Normal Color, Warm Results - Vital Signs Recent Vital Signs: Last Vital Signs Temp 99.8 F H 01/30/17 16:00 Pulse 131 H 01/30/17 17:03 Resp 43 H 01/30/17 17:03 BP 125/62 01/30/17 17:03 Pulse Ox 93 L 01/30/17 17:03 - Labs Result Diagrams: 01/30/17 06:15 01/30/17 06:19 Labs: Laboratory Results - last 24 hr 01/26/17 01/29/17 01/30/17 03:23 21:16 06:15 WBC 3.9 L RBC 2.64 L Hgb 8.5 L Hct 25.3 L MCV 96.0 MCH 32.2 H MCHC 33.6 RDW 17.1 H Plt Count 78 L MPV 9.0 Neut % (Auto) 88.6 H Lymph % (Auto) 7.8 L [place] % (Auto) 2.6 Eos % (Auto) 0.7 Baso % (Auto) 0.3 Neut # 3.5 Lymph # 0.3 L [place] # 0.1 Eos # 0.0 Baso # 0.0 Neutrophils % (Manual) 70 Band Neutrophils % 13 H* Lymphocytes % (Manual) 14 L Monocytes % (Manual) 3 Platelet Estimate Decreased L Basophilic Stippling Slight Anisocytosis (manual) Slight Sodium Potassium Chloride Carbon Dioxide Anion Gap BUN Creatinine Est GFR ( Amer) Est GFR (Non-Af Amer) POC Glucose (mg/dL) 139 H Random Glucose Calcium Phosphorus Magnesium Iron TIBC % Saturation Ferritin Total Bilirubin AST ALT Alkaline Phosphatase NT-Pro-B Natriuret Pep Total Protein Albumin Globulin Albumin/Globulin Ratio VMA/Creatinine Ratio 37.5 H 01/30/17 01/30/17 01/30/17 06:19 06:19 06:19 WBC RBC Hgb Hct MCV MCH MCHC RDW Plt Count MPV Neut % (Auto) Lymph % (Auto) [place] % (Auto) Eos % (Auto) Baso % (Auto) Neut # Lymph # [place] # Eos # Baso # Neutrophils % (Manual) Band Neutrophils % Lymphocytes % (Manual) Monocytes % (Manual) Platelet Estimate Basophilic Stippling Anisocytosis (manual) Sodium 136 Potassium 3.2 L Chloride 98 Carbon Dioxide 30 Anion Gap 11 BUN 6 L Creatinine 0.4 L Est GFR ( Amer) > 60 Est GFR (Non-Af Amer) > 60 POC Glucose (mg/dL) Random Glucose 141 H Calcium 7.3 L Phosphorus 2.8 Magnesium 1.9 Iron 20 L TIBC 152 L % Saturation 13 L Ferritin 304.0 Total Bilirubin 1.0 AST 13 L ALT 31 Alkaline Phosphatase 57 NT-Pro-B Natriuret Pep 2490 H Total Protein 4.9 L Albumin 2.3 L Globulin 2.6 Albumin/Globulin Ratio 0.9 L VMA/Creatinine Ratio 01/30/17 01/30/17 01/30/17 07:20 11:45 16:18 WBC RBC Hgb Hct MCV MCH MCHC RDW Plt Count MPV Neut % (Auto) Lymph % (Auto) [place] % (Auto) Eos % (Auto) Baso % (Auto) Neut # Lymph # [place] # Eos # Baso # Neutrophils % (Manual) Band Neutrophils % Lymphocytes % (Manual) Monocytes % (Manual) Platelet Estimate Basophilic Stippling Anisocytosis (manual) Sodium Potassium Chloride Carbon Dioxide Anion Gap BUN Creatinine Est GFR ( Amer) Est GFR (Non-Af Amer) POC Glucose (mg/dL) 130 H 228 H 106 Random Glucose Calcium Phosphorus Magnesium Iron TIBC % Saturation Ferritin Total Bilirubin AST ALT Alkaline Phosphatase NT-Pro-B Natriuret Pep Total Protein Albumin Globulin Albumin/Globulin Ratio VMA/Creatinine Ratio Assessment & Plan - Assessment and Plan (Free Text) Assessment: palliative consult Code status not defined, Full Code, there is no Advance Directive/ Living Will on chart. I reviewed medical records, all diagnostic studies, examined patient in the bed. Interview was not possible due to patient's condition. Patient is alert, makes eye contacts, but is not answering questions for me. Patient does not appear to be in any distress. Skin is dry and intact. Breath sound are diminished, O2sat 93% NC. Patient is tachucardic and tacypneic, HR 136 , RR 32. WBC 3.9, Hb 8.5, band neutrophils 13.0. Zyvox IV on board. Patient's daughter Katrina who states is a POA and has a document at home to support that statement, is present for goals of care discussion. She understands her mother's chronic condition and states her mother is tired from fighting it over the last 10 years. aKtrina sees decline in her mother's condition, especially lately when patient has been readmitted more often for respiratory problems. Patient's clinical condition reviewed. Code status discussed. I offered more information regarding DNR/DNI status. Daughter agreed that comfort was her biggest concern as she knew that her mother's disease could not be cured. daughter values quality of life very much and consider it as the only normal way of living. Katrina would not want her mother's life to be prolonged by the life support if the meaningful recovery was not expected. I reviewed the Advance Directive Form left in by Doctor Dumont for her to sign. I suggested we do POLST instead as universal form accepted at Nursing Homes as well. She agreed and signed DNR/DNI status. This was shared with ICU staff. Impression * Chronically ill patient with multiple readmisions due to respiratory problems * Patient stated wish to Doctor Dumont that she would not want to be kept on life support if her condition worsens * This was discussed with daughter BROOKS Herndon and she agreed * POLST on chart Suggestion * Supportive care * Assist with ADLs * Aspiration precautions * DNR/DNI * Discharge planing
--- NOTE | 2017-01-30 19:50 | CP.PCM.PN ---
Subjective - Date & Time of Evaluation Date of Evaluation: 01/30/17 Time of Evaluation: 19:48 - Subjective Subjective: Apprised of developments today especially the change in pt's code status from full code to DNR/DNI. Pt had expressed this desire to me several days ago, and I thank those who helped carry this out to completion for Mrs. Chavarria. > Ok to transfer to floor. Hospice consult discussed with family to help with end-of-life care, hopefully inpatient, since I don't anticipate that things will last too long before pt leaves us. Endorsed to NOD. Objective - Vital Signs/Intake and Output Vital Signs (last 24 hours): Temp Pulse Resp BP Pulse Ox 99.8 F H 133 H 34 H 147/78 88 L 01/30/17 16:00 01/30/17 19:04 01/30/17 19:04 01/30/17 19:04 01/30/17 19:04 Intake and Output: 01/30/17 01/31/17 18:59 06:59 Intake Total 1010 0 Output Total 750 50 Balance 260 -50 - Medications Medications: Current Medications Acetylcysteine (Acetylcysteine 20%) 4 ml INH RQ6 RAUL Last Admin: 01/30/17 19:03 Dose: 4 ml Albuterol/Ipratropium (Duoneb 3 Mg/0.5 Mg (3 Ml) Ud) 3 ml INH RQ6 RAUL Last Admin: 01/30/17 19:01 Dose: 3 ml Budesonide (Pulmicort Respules) 0.5 mg INH RQ12 RAUL Last Admin: 01/30/17 19:02 Dose: 0.5 mg Linezolid (Zyvox 600mg/300ml D5w) 600 mg in 300 mls @ 200 mls/hr IVPB Q12 RAUL Last Admin: 01/30/17 09:10 Dose: 200 mls/hr Piperacillin Sod/Tazobactam Sod (Zosyn 3.375 Gm Iv Premix) 3.375 gm in 50 mls @ 100 mls/hr IVPB Q8H RAUL Last Admin: 01/30/17 17:31 Dose: 100 mls/hr Morphine Sulfate (Morphine) 1 mg IV Q4H PRN PRN Reason: pain (any) Pantoprazole Sodium (Protonix Susp) 40 mg PO 0600 RAUL Last Admin: 01/30/17 05:54 Dose: 40 mg Rosuvastatin Calcium (Crestor) 5 mg PO HS [facility] Last Admin: 01/29/17 22:04 Dose: 5 mg Sucralfate (Carafate Oral Susp) 1 gm PO Q6 [facility] Last Admin: 01/30/17 17:23 Dose: Not Given - Labs Labs: 01/30/17 06:15 01/30/17 06:19 PT 9.6 SECONDS (9.7-12.2) L 01/25/17 20:26 INR 0.9 01/25/17 20:26 APTT 25 SECONDS (21-34) 01/25/17 20:26 - Constitutional Appears: No Acute Distress (not agitated; if one leaves her alone, she is pleasant; very strong willed as well) - Head Exam Head Exam: ATRAUMATIC, NORMAL INSPECTION, NORMOCEPHALIC - Eye Exam Eye Exam: Normal appearance Additional comments: eyes closed most of the time and sleeping, though awakens when called; words not very intelligible - ENT Exam ENT Exam: Mucous Membranes Moist - Neck Exam Neck Exam: Full ROM - Respiratory Exam Respiratory Exam: Decreased Breath Sounds, Respiratory Distress - Cardiovascular Exam Cardiovascular Exam: REGULAR RHYTHM - GI/Abdominal Exam GI & Abdominal Exam: Hypoactive Bowel Sounds - Rectal Exam Rectal Exam: Deferred - Extremities Exam Extremities Exam: Joint Swelling - Back Exam Back Exam: muscle spasm (+ pressure ulcers) Assessment and Plan (1) Respiratory distress Assessment & Plan: Pt increasingly developing complications from MS, and intractable pneumonia; pt tired and expressed wish to "let her rest". Family/POA signed DNR/DNI for today. Advised daughter, Demi, that I was going to call hospice to help with end-of-life logistics. Also advised her to let her sister know and her brother about Hospice Plans Status: Acute (2) Bandemia without diagnosis of specific infection Assessment & Plan: stable at teens Status: Acute (3) Multiple sclerosis Status: Chronic (4) Electrolyte imbalance Assessment & Plan: includes hypocalcemia, hyperkalemia, hypophosphatemia, hypomagnesemia, hypo/ hypernatremia, among others. needs continuous repletion, which may be sign of pt 's deteriorating condition. Status: Acute
--- NOTE | 2017-01-30 23:43 | CP.PCM.PN ---
Subjective - Date & Time of Evaluation Date of Evaluation: 01/30/17 Time of Evaluation: 23:43 - Subjective Subjective: Patient does not want to be intubated. Does not want any x-rays done at this time. On BiPAP. Poor intake noted. Does not want any aggressive treatment at this time. On examination: Vital signs are mildly tachycardic, respiratory distress noted. Regular heart sound. Edema noted. Assessment and recommendation: 76-year-old female with multiple sclerosis, hypertension, deep venous thrombosis , probably embolism, IVC filter admitted with acute pneumonia, complicating with the chronicus. Insufficiency. Overall prognosis is poor Objective - Vital Signs/Intake and Output Vital Signs (last 24 hours): Temp Pulse Resp BP Pulse Ox 101.4 F H 131 H 31 H 119/67 96 01/30/17 20:00 01/30/17 21:04 01/30/17 21:04 01/30/17 21:04 01/30/17 21:04 Intake and Output: 01/30/17 01/31/17 18:59 06:59 Intake Total 1010 0 Output Total 750 160 Balance 260 -160 - Medications Medications: Current Medications Acetylcysteine (Acetylcysteine 20%) 4 ml INH RQ6 [facility] Last Admin: 01/30/17 19:03 Dose: 4 ml Albuterol/Ipratropium (Duoneb 3 Mg/0.5 Mg (3 Ml) Ud) 3 ml INH RQ6 [facility]UL Last Admin: 01/30/17 19:01 Dose: 3 ml Budesonide (Pulmicort Respules) 0.5 mg INH RQ12 [facility] Last Admin: 01/30/17 19:02 Dose: 0.5 mg Linezolid (Zyvox 600mg/300ml D5w) 600 mg in 300 mls @ 200 mls/hr IVPB Q12 [facility] Last Admin: 01/30/17 21:29 Dose: 200 mls/hr Piperacillin Sod/Tazobactam Sod (Zosyn 3.375 Gm Iv Premix) 3.375 gm in 50 mls @ 100 mls/hr IVPB Q8H [facility] Last Admin: 01/30/17 17:31 Dose: 100 mls/hr Morphine Sulfate (Morphine) 1 mg IV Q4H PRN PRN Reason: pain (any) Pantoprazole Sodium (Protonix Susp) 40 mg PO 0600 [facility] Last Admin: 01/30/17 05:54 Dose: 40 mg Rosuvastatin Calcium (Crestor) 5 mg PO HS [facility] Last Admin: 01/30/17 21:28 Dose: 5 mg Sucralfate (Carafate Oral Susp) 1 gm PO Q6 [facility] Last Admin: 01/30/17 17:23 Dose: Not Given - Labs Labs: 01/30/17 06:15 01/30/17 06:19 PT 9.6 SECONDS (9.7-12.2) L 01/25/17 20:26 INR 0.9 01/25/17 20:26 APTT 25 SECONDS (21-34) 01/25/17 20:26
[2017-01-31] MEDS: Sucralfate 1 gm/10 ml Oral Susp UD PO SCH ×4 (00:35→18:39)
[2017-01-31] MEDS: Piperacill/Tazo 3.375gm in Dex 3.375 GM/50 ML BAG IVPB SCH ×3 (01:44→18:39)
[2017-01-31] MEDS: Acetylcysteine 20% Inhal Soln (4ml) INH SCH ×4 (02:53→20:03)
[2017-01-31] MEDS: Albuterol-Ipratrop 3 mg / 0.5 (3 ml) UD INH SCH ×4 (02:53→20:03)
[2017-01-31] MEDS: Pantoprazole 40 mg Susp UD PO SCH (06:30)
[2017-01-31 06:48] LABS: BASO % 0.2 % (0.0-2.0); EOS % 0.2 % (0.0-4.0); HEMATOCRIT 26.5 % (34.0-47.0); LYMPH # 0.4 K/uL (1.0-4.3); LYMPH % 6.2 % (20.0-40.0); MEAN CELL VOLUME 95.7 fL (81.0-99.0); MEAN CORPUSCULAR HEMOGLOBIN 32.3 pg (27.0-31.0); MEAN CORPUSCULAR HGB CONC 33.7 g/dL (33.0-37.0); MONO # 0.1 K/uL (0.0-0.8); MONO % 2.1 % (0.0-10.0); NRBC % 0.1 % (0.0-2.0); PLATELET COUNT 80 K/uL (130-400); RED CELL DISTRIBUTION WIDTH 16.9 % (11.5-14.5); WHITE BLOOD COUNT 6.7 K/uL (4.8-10.8)
[2017-01-31 07:10] LABS: CHLORIDE 97 mmol/L (98-107)
[2017-01-31 07:11] LABS: SODIUM 133 mmol/L (132-148)
[2017-01-31 07:13] LABS: ALB/GLOB RATIO 0.9 (1.0-2.1); ALKALINE PHOSPHATASE 65 U/L (38-126); ALT/SGPT 34 U/L (9-52); AST/SGOT 14 U/L (14-36); BILIRUBIN,TOTAL 1.3 mg/dL (0.2-1.3); BLOOD UREA NITROGEN 7 mg/dL (7-17); CARBON DIOXIDE 31 mmol/L (22-30); GFR AFRICAN-AMERICAN > 60; TOTAL PROTEIN 4.9 g/dL (6.3-8.3)
[2017-01-31 07:14] LABS: CALCIUM 7.4 mg/dl (8.6-10.4); GLUCOSE,RANDOM 104 mg/dL (65-105); MAGNESIUM 1.6 mg/dL (1.6-2.3); PHOSPHOROUS 2.1 mg/dL (2.5-4.5)
[2017-01-31] MEDS: Budesonide 0.5 mg/2 ml Inhal Susp UD INH SCH ×2 (07:57→20:03)
[2017-01-31 08:43] LABS: NEUTROPHIL 73 % (50-75); TOTAL CELLS COUNTED 100
[2017-01-31] MEDS: Linezolid 600 mg in D5W 300 ml 600 MG/300 ML BAG IVPB SCH ×2 (09:56→21:20)
[2017-01-31] MEDS ORDERED: Magnesium Sulfate 1 gm in D5W 1 GM/100 ML BAG IVPB ONE (11:15)
[2017-01-31] MEDS ORDERED: Potassium Phosphate 15 MMOLE in Dextrose 5% In Water 250 ML IVPB ONE (11:30)
--- NOTE | 2017-01-31 13:41 | CP.PCM.PN ---
Subjective - Date & Time of Evaluation Date of Evaluation: 01/31/17 Time of Evaluation: 13:39 - Subjective Subjective: Patient is more alert today, tolerating a regular diet, though she cannot feed herself. She denies having nausea and vomiting. She is not aware of having a bowel movement this morning. Objective - Vital Signs/Intake and Output Vital Signs (last 24 hours): Temp Pulse Resp BP Pulse Ox 98.4 F 113 H 18 90/45 L 94 L 01/31/17 12:00 01/31/17 12:00 01/31/17 12:00 01/31/17 11:03 01/31/17 12:00 Intake and Output: 01/31/17 01/31/17 06:59 18:59 Intake Total 350 570 Output Total 565 160 Balance -215 410 - Medications Medications: Current Medications Acetylcysteine (Acetylcysteine 20%) 4 ml INH RQ6 RAUL Last Admin: 01/31/17 07:57 Dose: 4 ml Albuterol/Ipratropium (Duoneb 3 Mg/0.5 Mg (3 Ml) Ud) 3 ml INH RQ6 RAUL Last Admin: 01/31/17 07:57 Dose: 3 ml Budesonide (Pulmicort Respules) 0.5 mg INH RQ12 RAUL Last Admin: 01/31/17 07:57 Dose: 0.5 mg Linezolid (Zyvox 600mg/300ml D5w) 600 mg in 300 mls @ 200 mls/hr IVPB Q12 RAUL Last Admin: 01/31/17 09:56 Dose: 200 mls/hr Piperacillin Sod/Tazobactam Sod (Zosyn 3.375 Gm Iv Premix) 3.375 gm in 50 mls @ 100 mls/hr IVPB Q8H RAUL Last Admin: 01/31/17 09:52 Dose: 100 mls/hr Potassium Phosphate 15 mmole/ (Dextrose) 255 mls @ 42.5 mls/hr IVPB ONCE ONE Stop: 01/31/17 17:29 Morphine Sulfate (Morphine) 1 mg IV Q4H PRN PRN Reason: pain (any) Pantoprazole Sodium (Protonix Susp) 40 mg PO 0600 RAUL Last Admin: 01/31/17 06:30 Dose: 40 mg Rosuvastatin Calcium (Crestor) 5 mg PO HS RAUL Last Admin: 01/30/17 21:28 Dose: 5 mg Sucralfate (Carafate Oral Susp) 1 gm PO Q6 RAUL Last Admin: 01/31/17 12:05 Dose: 1 gm - Labs Labs: 01/31/17 06:32 01/31/17 06:32 PT 9.6 SECONDS (9.7-12.2) L 01/25/17 20:26 INR 0.9 01/25/17 20:26 APTT 25 SECONDS (21-34) 01/25/17 20:26 - Constitutional Appears: No Acute Distress - Head Exam Head Exam: ATRAUMATIC, NORMOCEPHALIC - Eye Exam Eye Exam: EOMI - Neck Exam Neck Exam: absent: Lymphadenopathy, Thyromegaly - Respiratory Exam Respiratory Exam: NORMAL BREATHING PATTERN. absent: Rales, Rhonchi, Wheezes - Cardiovascular Exam Cardiovascular Exam: REGULAR RHYTHM, +S1, +S2. absent: Gallop, Rubs, Murmur - GI/Abdominal Exam GI & Abdominal Exam: Soft, Normal Bowel Sounds. absent: Tenderness, Mass, Organomegaly - Rectal Exam Rectal Exam: Deferred - Extremities Exam Extremities Exam: absent: Calf Tenderness Assessment and Plan (1) Occult blood in stools Assessment & Plan: Patient is now DNR/DNI, and the preference of the family is for comfort care. We will therefore defer colonoscopy. Status: Acute
--- NOTE | 2017-01-31 16:00 | CP.CCUPN ---
<Breann Kruse E - Last Filed: 01/31/17 15:57> CCU Subjective - Physician Review Subjective (Free Text): Patient was seen and examined at bedside. Patient was resting comfortably in bed. Patient denies any discomfort such as chest pain, SOB, palpitations, nausea, abdominal pain, fever and chills. Patient is able to tolerate diet. Patient states that she is very comfortable. CCU Objective - Vital Signs / Intake & Output Vital Signs (Last 4 hours): Vital Signs Temp Pulse Resp BP Pulse Ox 01/31/17 15:03 121 H 28 H 97/47 L 100 01/31/17 14:03 117 H 32 H 94/50 L 98 01/31/17 13:03 113 H 30 H 92/50 L 93 L 01/31/17 12:03 114 H 20 90/42 L 91 L 01/31/17 12:00 98.4 F 113 H 18 94 L Intake and Output (Last 8hrs): Intake & Output 01/31/17 01/31/17 01/31/17 06:59 14:59 22:59 Intake Total 50 890 63 Output Total 365 210 25 Balance -315 680 38 Weight 152 lb 10.225 oz Intake: Intake, IV Amount 50 650 63 Right PICC 650 63 Right Upper arm 50 Oral 240 0 Output: Urine 365 210 25 Urethral ([place]) 365 210 25 - Physical Exam Head: Positive for: Atraumatic Extroacular Muscles: Positive for: EOMI Respiratory/Chest: Positive for: Good Air Exchange (anteriorly and on 3L NC ), Other (Currently on BIpap) Cardiovascular: Positive for: Regular Rate and Rhythm, Normal S1, S2 Abdomen: Positive for: Normal Bowel Sounds. Negative for: Tenderness, Distention Upper Extremity: Positive for: Swelling (Improving ) Lower Extremity: Positive for: Swelling (Improving ) Neurological: Positive for: GCS=15 Skin: Positive for: Normal Color Psychiatric: Positive for: Alert, Oriented x 3 - Medications Active Medications: Active Medications Generic Name Dose Route Start Last Admin Trade Name Freq PRN Reason Stop Dose Admin Acetylcysteine 4 ml 01/29/17 14:00 01/31/17 14:17 Acetylcysteine 20% INH 4 ml RQ6 RAUL Administration Albuterol/Ipratropium 3 ml 01/29/17 02:00 01/31/17 14:17 Duoneb 3 Mg/0.5 Mg (3 Ml) Ud INH 3 ml RQ6 RAUL Administration Budesonide 0.5 mg 01/26/17 08:00 01/31/17 07:57 Pulmicort Respules INH 0.5 mg RQ12 RAUL Administration Linezolid 600 mg in 300 mls @ 200 mls/hr 01/27/17 22:00 01/31/17 09:56 Zyvox 600mg/300ml D5w IVPB 200 mls/hr Q12 RAUL Administration Piperacillin Sod/Tazobactam Sod 3.375 gm in 50 mls @ 100 mls/hr 01/28/17 18: 30 01/31/17 09:52 Zosyn 3.375 Gm Iv Premix IVPB 100 mls/hr Q8H RAUL Administration Potassium Phosphate 15 mmole/ 255 mls @ 42.5 mls/hr 01/31/17 11:30 01/31/17 14:06 Dextrose IVPB 01/31/17 17:29 42.5 mls/hr ONCE ONE Administration Morphine Sulfate 1 mg 01/30/17 19:45 01/31/17 14:05 Morphine IV 1 mg Q4H PRN Administration pain (any) Pantoprazole Sodium 40 mg 01/26/17 06:00 01/31/17 06:30 Protonix Susp PO 40 mg 0600 RAUL Administration Rosuvastatin Calcium 5 mg 01/26/17 22:00 01/30/17 21:28 Crestor PO 5 mg HS RAUL Administration Sucralfate 1 gm 01/26/17 06:00 01/31/17 12:05 Carafate Oral Susp PO 1 gm Q6 RAUL Administration - Patient Studies Lab Studies: Microbiology Studies 01/25/17 21:10 Blood Culture - Final Blood-Venous NO GROWTH AFTER 5 DAYS Gram Stain - Final TEST NOT PERFORMED 01/25/17 20:20 Blood Culture - Final Blood-Venous NO GROWTH AFTER 5 DAYS Gram Stain - Final TEST NOT PERFORMED Lab Studies 01/31/17 01/31/17 01/31/17 Range/Units 11:00 07:16 06:32 WBC (4.8-10.8) K/uL RBC (3.80-5.20) Mil/uL Hgb (11.0-16.0) g/dL Hct (34.0-47.0) % MCV (81.0-99.0) fL MCH (27.0-31.0) pg MCHC (33.0-37.0) g/dL RDW (11.5-14.5) % Plt Count (130-400) K/uL MPV (7.2-11.7) fL Neut % (Auto) (50.0-75.0) % Lymph % (Auto) (20.0-40.0) % [place] % (Auto) (0.0-10.0) % Eos % (Auto) (0.0-4.0) % Baso % (Auto) (0.0-2.0) % Neut # (1.8-7.0) K/uL Lymph # (1.0-4.3) K/uL [place] # (0.0-0.8) K/uL Eos # (0.0-0.7) K/uL Baso # (0.0-0.2) K/uL Neutrophils % (Manual) (50-75) % Band Neutrophils % (0-2) % Lymphocytes % (Manual) (20-40) % Monocytes % (Manual) (0-10) % Platelet Estimate (NORMAL) Hypochromasia (manual) Poikilocytosis (manual Anisocytosis (manual) Ovalocytes Sodium 133 (132-148) mmol/L Potassium 3.0 L (3.6-5.2) mmol/L Chloride 97 L (98-107) mmol/L Carbon Dioxide 31 H (22-30) mmol/L Anion Gap 8 L (10-20) BUN 7 (7-17) mg/dL Creatinine 0.4 L (0.7-1.2) mg/dL Est GFR ( Amer) > 60 Est GFR (Non-Af Amer) > 60 POC Glucose (mg/dL) 115 H 115 H (65-110) mg/dL Random Glucose 104 (65-105) mg/dL Calcium 7.4 L (8.6-10.4) mg/dl Phosphorus 2.1 L (2.5-4.5) mg/dL Magnesium 1.6 (1.6-2.3) mg/dL Total Bilirubin 1.3 (0.2-1.3) mg/dL AST 14 (14-36) U/L ALT 34 (9-52) U/L Alkaline Phosphatase 65 (38-126) U/L Total Protein 4.9 L (6.3-8.3) g/dL Albumin 2.3 L (3.5-5.0) g/dL Globulin 2.6 (2.2-3.9) gm/dL Albumin/Globulin Ratio 0.9 L (1.0-2.1) 01/31/17 01/30/17 01/30/17 Range/Units 06:32 21:12 16:18 WBC 6.7 D (4.8-10.8) K/uL RBC 2.77 L (3.80-5.20) Mil/uL Hgb 8.9 L (11.0-16.0) g/dL Hct 26.5 L (34.0-47.0) % MCV 95.7 (81.0-99.0) fL MCH 32.3 H (27.0-31.0) pg MCHC 33.7 (33.0-37.0) g/dL RDW 16.9 H (11.5-14.5) % Plt Count 80 L (130-400) K/uL MPV 9.0 (7.2-11.7) fL Neut % (Auto) 91.3 H (50.0-75.0) % Lymph % (Auto) 6.2 L (20.0-40.0) % [place] % (Auto) 2.1 (0.0-10.0) % Eos % (Auto) 0.2 (0.0-4.0) % Baso % (Auto) 0.2 (0.0-2.0) % Neut # 6.2 (1.8-7.0) K/uL Lymph # 0.4 L (1.0-4.3) K/uL [place] # 0.1 (0.0-0.8) K/uL Eos # 0.0 (0.0-0.7) K/uL Baso # 0.0 (0.0-0.2) K/uL Neutrophils % (Manual) 73 (50-75) % Band Neutrophils % 17 H* (0-2) % Lymphocytes % (Manual) 9 L (20-40) % Monocytes % (Manual) 1 (0-10) % Platelet Estimate Decreased L (NORMAL) Hypochromasia (manual) Slight Poikilocytosis (manual Slight Anisocytosis (manual) Slight Ovalocytes Slight Sodium (132-148) mmol/L Potassium (3.6-5.2) mmol/L Chloride (98-107) mmol/L Carbon Dioxide (22-30) mmol/L Anion Gap (10-20) BUN (7-17) mg/dL Creatinine (0.7-1.2) mg/dL Est GFR ( Amer) Est GFR (Non-Af Amer) POC Glucose (mg/dL) 90 106 (65-110) mg/dL Random Glucose (65-105) mg/dL Calcium (8.6-10.4) mg/dl Phosphorus (2.5-4.5) mg/dL Magnesium (1.6-2.3) mg/dL Total Bilirubin (0.2-1.3) mg/dL AST (14-36) U/L ALT (9-52) U/L Alkaline Phosphatase (38-126) U/L Total Protein (6.3-8.3) g/dL Albumin (3.5-5.0) g/dL Globulin (2.2-3.9) gm/dL Albumin/Globulin Ratio (1.0-2.1) Laboratory Results - last 24 hr 01/30/17 01/30/17 01/31/17 16:18 21:12 06:32 WBC 6.7 D RBC 2.77 L Hgb 8.9 L Hct 26.5 L MCV 95.7 MCH 32.3 H MCHC 33.7 RDW 16.9 H Plt Count 80 L MPV 9.0 Neut % (Auto) 91.3 H Lymph % (Auto) 6.2 L [place] % (Auto) 2.1 Eos % (Auto) 0.2 Baso % (Auto) 0.2 Neut # 6.2 Lymph # 0.4 L [place] # 0.1 Eos # 0.0 Baso # 0.0 Neutrophils % (Manual) 73 Band Neutrophils % 17 H* Lymphocytes % (Manual) 9 L Monocytes % (Manual) 1 Platelet Estimate Decreased L Hypochromasia (manual) Slight Poikilocytosis (manual Slight Anisocytosis (manual) Slight Ovalocytes Slight Sodium Potassium Chloride Carbon Dioxide Anion Gap BUN Creatinine Est GFR ( Amer) Est GFR (Non-Af Amer) POC Glucose (mg/dL) 106 90 Random Glucose Calcium Phosphorus Magnesium Total Bilirubin AST ALT Alkaline Phosphatase Total Protein Albumin Globulin Albumin/Globulin Ratio 01/31/17 01/31/17 01/31/17 06:32 07:16 11:00 WBC RBC Hgb Hct MCV MCH MCHC RDW Plt Count MPV Neut % (Auto) Lymph % (Auto) [place] % (Auto) Eos % (Auto) Baso % (Auto) Neut # Lymph # [place] # Eos # Baso # Neutrophils % (Manual) Band Neutrophils % Lymphocytes % (Manual) Monocytes % (Manual) Platelet Estimate Hypochromasia (manual) Poikilocytosis (manual Anisocytosis (manual) Ovalocytes Sodium 133 Potassium 3.0 L Chloride 97 L Carbon Dioxide 31 H Anion Gap 8 L BUN 7 Creatinine 0.4 L Est GFR ( Amer) > 60 Est GFR (Non-Af Amer) > 60 POC Glucose (mg/dL) 115 H 115 H Random Glucose 104 Calcium 7.4 L Phosphorus 2.1 L Magnesium 1.6 Total Bilirubin 1.3 AST 14 ALT 34 Alkaline Phosphatase 65 Total Protein 4.9 L Albumin 2.3 L Globulin 2.6 Albumin/Globulin Ratio 0.9 L Fingerstick Blood Sugar Results: 115 Review of Systems - Constitutional Constitutional: absent: Fever, Chills, Sweats, Weakness - EENT Eyes: absent: Blurred Vision, Change in Vision Ears: absent: Dizziness - Respiratory Respiratory: absent: Dyspnea - Gastrointestinal Gastrointestinal: absent: Abdominal Pain, Nausea, Vomiting - Neurological Neurological: Weakness. absent: Dizziness, Headaches, Lack of Coordination, Paresthesias, Syncope - Endocrine Endocrine: Fatigue. 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), GI bleeding who presented with respiratory distress and found to be hypoxic and hypotensive at the fpc Today: Plan: As PMD, patient can transfer to floor as patient and patient's family have agreed to DNR/DNI Plan: Neuro: Alert, awake Cardio: No acute issues, hx of HLD Medication/management; * Crestor 5mg PO HS Pulm: Respiratory distress, hypoxia on admission ( Pneumonia) Chest X-ray: Patchy consolidative changes at the left lung base with small left Pleural effusion Medication and management: * 3L NC * Acetylcysteine 20% 4ml INH RQ6 * Albuterol 3mL INH RQ6 * Pulmicort 0.5mg INH RQ12H * Alternating between BIpap and 3L NC * Linezolid 600mg IVPB Q12H * Zosyn 3.375gm IVPB Q8H GI: Hx of GI bleed * Stool occult blood (Positive, 01/28/17) Medication/Management: * No anticoagulation * Protonix 40mg PO daily * Sucralfate 1gm PO Q6 Endo: No acute issues Renal: Electrolyte imbalance (Hypokalemia): * Hypomagnesemia and hypophosphatemia, resolved * Electrolytes repleted appropriately * Monitor with am CMP ID: Pneumonia, Bandemia, Afebrile Chest X-ray: Patchy consolidative changes at the left lung base with small left Pleural effusion (01/30/17) * Bandemia trending down * Negative urine culture and blood culture (01/25/17) Medication/Management: * Linezolid 600mg IVPB Q12H * Zosyn 3.375gm IVPB Q8H Prophylaxis: DVT: Anticoagulation contraindicated due to positive stool occult (01/28/17) GI: Protonix 40mg PO daily Pain control: Morphine 1mg IVP Q4H prn PT/OT Plan: As per PMD, patient can be transferred to medical-surgical floor as patient and patient's family have agreed to DNR/DNI <Johann Davies - Last Filed: 01/31/17 17:10> CCU Objective - Vital Signs / Intake & Output Vital Signs (Last 4 hours): Vital Signs Temp Pulse Resp BP Pulse Ox 01/31/17 16:03 115 H 33 H 104/53 L 100 01/31/17 16:00 98.4 F 01/31/17 15:03 121 H 28 H 97/47 L 100 01/31/17 14:03 117 H 32 H 94/50 L 98 01/31/17 13:03 113 H 30 H 92/50 L 93 L Intake and Output (Last 8hrs): Intake & Output 01/31/17 01/31/17 01/31/17 06:59 14:59 22:59 Intake Total 50 890 126 Output Total 365 210 55 Balance -315 680 71 Weight 152 lb 10.225 oz Intake: Intake, IV Amount 50 650 126 Right PICC 650 126 Right Upper arm 50 Oral 240 0 Output: Urine 365 210 55 Urethral ([place]) 365 210 55 - Medications Active Medications: Active Medications Generic Name Dose Route Start Last Admin Trade Name Freq PRN Reason Stop Dose Admin Acetylcysteine 4 ml 01/29/17 14:00 01/31/17 14:17 Acetylcysteine 20% INH 4 ml RQ6 RAUL Administration Albuterol/Ipratropium 3 ml 01/29/17 02:00 01/31/17 14:17 Duoneb 3 Mg/0.5 Mg (3 Ml) Ud INH 3 ml RQ6 RAUL Administration Budesonide 0.5 mg 01/26/17 08:00 01/31/17 07:57 Pulmicort Respules INH 0.5 mg RQ12 RAUL Administration Linezolid 600 mg in 300 mls @ 200 mls/hr 01/27/17 22:00 01/31/17 09:56 Zyvox 600mg/300ml D5w IVPB 200 mls/hr Q12 RAUL Administration Piperacillin Sod/Tazobactam Sod 3.375 gm in 50 mls @ 100 mls/hr 01/28/17 18: 30 01/31/17 09:52 Zosyn 3.375 Gm Iv Premix IVPB 100 mls/hr Q8H RAUL Administration Potassium Phosphate 15 mmole/ 255 mls @ 42.5 mls/hr 01/31/17 11:30 01/31/17 14:06 Dextrose IVPB 01/31/17 17:29 42.5 mls/hr ONCE ONE Administration Morphine Sulfate 1 mg 01/30/17 19:45 01/31/17 14:05 Morphine IV 1 mg Q4H PRN Administration pain (any) Pantoprazole Sodium 40 mg 01/26/17 06:00 01/31/17 06:30 Protonix Susp PO 40 mg 0600 RAUL Administration Rosuvastatin Calcium 5 mg 01/26/17 22:00 01/30/17 21:28 Crestor PO 5 mg HS RAUL Administration Sucralfate 1 gm 01/26/17 06:00 01/31/17 12:05 Carafate Oral Susp PO 1 gm Q6 RAUL Administration - Patient Studies Lab Studies: Microbiology Studies 01/25/17 21:10 Blood Culture - Final Blood-Venous NO GROWTH AFTER 5 DAYS Gram Stain - Final TEST NOT PERFORMED 01/25/17 20:20 Blood Culture - Final Blood-Venous NO GROWTH AFTER 5 DAYS Gram Stain - Final TEST NOT PERFORMED Lab Studies 01/31/17 01/31/17 01/31/17 Range/Units 16:10 11:00 07:16 WBC (4.8-10.8) K/uL RBC (3.80-5.20) Mil/uL Hgb (11.0-16.0) g/dL Hct (34.0-47.0) % MCV (81.0-99.0) fL MCH (27.0-31.0) pg MCHC (33.0-37.0) g/dL RDW (11.5-14.5) % Plt Count (130-400) K/uL MPV (7.2-11.7) fL Neut % (Auto) (50.0-75.0) % Lymph % (Auto) (20.0-40.0) % [place] % (Auto) (0.0-10.0) % Eos % (Auto) (0.0-4.0) % Baso % (Auto) (0.0-2.0) % Neut # (1.8-7.0) K/uL Lymph # (1.0-4.3) K/uL [place] # (0.0-0.8) K/uL Eos # (0.0-0.7) K/uL Baso # (0.0-0.2) K/uL Neutrophils % (Manual) (50-75) % Band Neutrophils % (0-2) % Lymphocytes % (Manual) (20-40) % Monocytes % (Manual) (0-10) % Platelet Estimate (NORMAL) Hypochromasia (manual) Poikilocytosis (manual Anisocytosis (manual) Ovalocytes Sodium (132-148) mmol/L Potassium (3.6-5.2) mmol/L Chloride (98-107) mmol/L Carbon Dioxide (22-30) mmol/L Anion Gap (10-20) BUN (7-17) mg/dL Creatinine (0.7-1.2) mg/dL Est GFR ( Amer) Est GFR (Non-Af Amer) POC Glucose (mg/dL) 155 H 115 H 115 H (65-110) mg/dL Random Glucose (65-105) mg/dL Calcium (8.6-10.4) mg/dl Phosphorus (2.5-4.5) mg/dL Magnesium (1.6-2.3) mg/dL Total Bilirubin (0.2-1.3) mg/dL AST (14-36) U/L ALT (9-52) U/L Alkaline Phosphatase (38-126) U/L Total Protein (6.3-8.3) g/dL Albumin (3.5-5.0) g/dL Globulin (2.2-3.9) gm/dL Albumin/Globulin Ratio (1.0-2.1) 01/31/17 01/31/17 01/30/17 Range/Units 06:32 06:32 21:12 WBC 6.7 D (4.8-10.8) K/uL RBC 2.77 L (3.80-5.20) Mil/uL Hgb 8.9 L (11.0-16.0) g/dL Hct 26.5 L (34.0-47.0) % MCV 95.7 (81.0-99.0) fL MCH 32.3 H (27.0-31.0) pg MCHC 33.7 (33.0-37.0) g/dL RDW 16.9 H (11.5-14.5) % Plt Count 80 L (130-400) K/uL MPV 9.0 (7.2-11.7) fL Neut % (Auto) 91.3 H (50.0-75.0) % Lymph % (Auto) 6.2 L (20.0-40.0) % [place] % (Auto) 2.1 (0.0-10.0) % Eos % (Auto) 0.2 (0.0-4.0) % Baso % (Auto) 0.2 (0.0-2.0) % Neut # 6.2 (1.8-7.0) K/uL Lymph # 0.4 L (1.0-4.3) K/uL [place] # 0.1 (0.0-0.8) K/uL Eos # 0.0 (0.0-0.7) K/uL Baso # 0.0 (0.0-0.2) K/uL Neutrophils % (Manual) 73 (50-75) % Band Neutrophils % 17 H* (0-2) % Lymphocytes % (Manual) 9 L (20-40) % Monocytes % (Manual) 1 (0-10) % Platelet Estimate Decreased L (NORMAL) Hypochromasia (manual) Slight Poikilocytosis (manual Slight Anisocytosis (manual) Slight Ovalocytes Slight Sodium 133 (132-148) mmol/L Potassium 3.0 L (3.6-5.2) mmol/L Chloride 97 L (98-107) mmol/L Carbon Dioxide 31 H (22-30) mmol/L Anion Gap 8 L (10-20) BUN 7 (7-17) mg/dL Creatinine 0.4 L (0.7-1.2) mg/dL Est GFR ( Amer) > 60 Est GFR (Non-Af Amer) > 60 POC Glucose (mg/dL) 90 (65-110) mg/dL Random Glucose 104 (65-105) mg/dL Calcium 7.4 L (8.6-10.4) mg/dl Phosphorus 2.1 L (2.5-4.5) mg/dL Magnesium 1.6 (1.6-2.3) mg/dL Total Bilirubin 1.3 (0.2-1.3) mg/dL AST 14 (14-36) U/L ALT 34 (9-52) U/L Alkaline Phosphatase 65 (38-126) U/L Total Protein 4.9 L (6.3-8.3) g/dL Albumin 2.3 L (3.5-5.0) g/dL Globulin 2.6 (2.2-3.9) gm/dL Albumin/Globulin Ratio 0.9 L (1.0-2.1) Laboratory Results - last 24 hr 01/30/17 01/31/17 01/31/17 21:12 06:32 06:32 WBC 6.7 D RBC 2.77 L Hgb 8.9 L Hct 26.5 L MCV 95.7 MCH 32.3 H MCHC 33.7 RDW 16.9 H Plt Count 80 L MPV 9.0 Neut % (Auto) 91.3 H Lymph % (Auto) 6.2 L [place] % (Auto) 2.1 Eos % (Auto) 0.2 Baso % (Auto) 0.2 Neut # 6.2 Lymph # 0.4 L [place] # 0.1 Eos # 0.0 Baso # 0.0 Neutrophils % (Manual) 73 Band Neutrophils % 17 H* Lymphocytes % (Manual) 9 L Monocytes % (Manual) 1 Platelet Estimate Decreased L Hypochromasia (manual) Slight Poikilocytosis (manual Slight Anisocytosis (manual) Slight Ovalocytes Slight Sodium 133 Potassium 3.0 L Chloride 97 L Carbon Dioxide 31 H Anion Gap 8 L BUN 7 Creatinine 0.4 L Est GFR ( Amer) > 60 Est GFR (Non-Af Amer) > 60 POC Glucose (mg/dL) 90 Random Glucose 104 Calcium 7.4 L Phosphorus 2.1 L Magnesium 1.6 Total Bilirubin 1.3 AST 14 ALT 34 Alkaline Phosphatase 65 Total Protein 4.9 L Albumin 2.3 L Globulin 2.6 Albumin/Globulin Ratio 0.9 L 01/31/17 01/31/17 01/31/17 07:16 11:00 16:10 WBC RBC Hgb Hct MCV MCH MCHC RDW Plt Count MPV Neut % (Auto) Lymph % (Auto) [place] % (Auto) Eos % (Auto) Baso % (Auto) Neut # Lymph # [place] # Eos # Baso # Neutrophils % (Manual) Band Neutrophils % Lymphocytes % (Manual) Monocytes % (Manual) Platelet Estimate Hypochromasia (manual) Poikilocytosis (manual Anisocytosis (manual) Ovalocytes Sodium Potassium Chloride Carbon Dioxide Anion Gap BUN Creatinine Est GFR ( Amer) Est GFR (Non-Af Amer) POC Glucose (mg/dL) 115 H 115 H 155 H Random Glucose Calcium Phosphorus Magnesium Total Bilirubin AST ALT Alkaline Phosphatase Total Protein Albumin Globulin Albumin/Globulin Ratio Critical Care Progress Note - Nutrition Nutrition: Nutrition Category Date Time Status Consistent Carbohydrate [DIET] Diets 01/26/17 Breakfast Active Attending/Attestation - Attestation I have personally seen and examined this patient.: Yes I have fully participated in the care of the patient.: Yes I have reviewed all pertinent clinical information: Yes Notes (Text): 01/31/17 16:59 Today: January The Patient was seen and examined at the bedside, Medical records reviewed, and management issues were discussed and formulated with the house staff. I have reviewed all the relevant clinical, laboratory, hemodynamic, radiographic data and medications Events reviewed Pain issues, skin care, head of the bed elevation, glycemic control were addressed. I concur with resident's assessment and plan of care as transcribed in Dr. Gurmeet Kruse note.
--- NOTE | 2017-01-31 20:26 | CP.PCM.PN ---
Subjective - Date & Time of Evaluation Date of Evaluation: 01/31/17 Time of Evaluation: 19:05 - Subjective Subjective: Pt given a dose of morphine today and pt calm and pain free afterwards. Had called ICU earlier today and inquired if hospice evaluation completed. For some reason, whoever called Hospice did NOT read my order to contact [facility]. Instead, [facility] was called instead of the one I requested that they help me with Ms. Chavarria's end-of-life issues. Hence I will request that SW contact [facility] to cancel the referral. Spoke with pt's daughter after they called my office and they were confused as to why there were 2 hospice companies. I explained the events of the day and I was informed that a meeting had been set up for tomorrow, 02/01/17 at 1 pm. Will await results of this meeting. Objective - Vital Signs/Intake and Output Vital Signs (last 24 hours): Temp Pulse Resp BP Pulse Ox 98.4 F 120 H 24 96/48 L 93 L 01/31/17 16:00 01/31/17 18:03 01/31/17 18:03 01/31/17 18:03 01/31/17 18:03 Intake and Output: 01/31/17 02/01/17 18:59 06:59 Intake Total 1176 62 Output Total 320 Balance 856 62 - Medications Medications: Current Medications Acetylcysteine (Acetylcysteine 20%) 4 ml INH RQ6 RAUL Last Admin: 01/31/17 20:03 Dose: 4 ml Albuterol/Ipratropium (Duoneb 3 Mg/0.5 Mg (3 Ml) Ud) 3 ml INH RQ6 RAUL Last Admin: 01/31/17 20:03 Dose: 3 ml Budesonide (Pulmicort Respules) 0.5 mg INH RQ12 RAUL Last Admin: 01/31/17 20:03 Dose: 0.5 mg Linezolid (Zyvox 600mg/300ml D5w) 600 mg in 300 mls @ 200 mls/hr IVPB Q12 RAUL Last Admin: 01/31/17 09:56 Dose: 200 mls/hr Piperacillin Sod/Tazobactam Sod (Zosyn 3.375 Gm Iv Premix) 3.375 gm in 50 mls @ 100 mls/hr IVPB Q8H RAUL Last Admin: 01/31/17 18:39 Dose: 100 mls/hr Morphine Sulfate (Morphine) 1 mg IV Q4H PRN PRN Reason: pain (any) Last Admin: 01/31/17 14:05 Dose: 1 mg Pantoprazole Sodium (Protonix Susp) 40 mg PO 0600 [facility] Last Admin: 01/31/17 06:30 Dose: 40 mg Rosuvastatin Calcium (Crestor) 5 mg PO HS [facility] Last Admin: 01/30/17 21:28 Dose: 5 mg Sucralfate (Carafate Oral Susp) 1 gm PO Q6 [facility] Last Admin: 01/31/17 18:39 Dose: Not Given - Labs Labs: 01/31/17 06:32 01/31/17 06:32 PT 9.6 SECONDS (9.7-12.2) L 01/25/17 20:26 INR 0.9 01/25/17 20:26 APTT 25 SECONDS (21-34) 01/25/17 20:26 - Constitutional Appears: No Acute Distress (comfortable, wakes up but very lethargic) - Head Exam Head Exam: NORMAL INSPECTION, NORMOCEPHALIC - Eye Exam Additional comments: poor vision - ENT Exam Additional comments: no respiratory distress - Neck Exam Additional comments: no JVD - Respiratory Exam Respiratory Exam: Decreased Breath Sounds, Rhonchi Additional comments: shallow respiration, refuses interventions - Cardiovascular Exam Cardiovascular Exam: REGULAR RHYTHM - GI/Abdominal Exam GI & Abdominal Exam: Diminished Bowel Sounds - Rectal Exam Rectal Exam: Deferred - Extremities Exam Extremities Exam: Normal Inspection - Back Exam Additional comments: + pressure ulcers at gluteus and sacrum - Neurological Exam Neurological Exam: Abnormal Gait Neuro motor strength exam: Left Upper Extremity: 2/1, Right Upper Extremity: 2/1 , Left Lower Extremity: 2/1, Right Lower Extremity: 2/1 - Psychiatric Exam Psychiatric exam: Depressed - Skin Additional comments: poor turgor Assessment and Plan (1) Respiratory distress Assessment & Plan: relieved, not in respiratory distress despite mediatstinal shift and mucus plugging on 1 hemithorax Status: Acute (2) Bandemia without diagnosis of specific infection Assessment & Plan: improved but may not be in time, family aware; for hospice Status: Acute (3) Multiple sclerosis Assessment & Plan: progressive and debilitating, end of life care Status: Chronic (4) Electrolyte imbalance Assessment & Plan: unable to maintain balance anymore and needing constant repletion Status: Acute
[2017-02-01] MEDS: Sucralfate 1 gm/10 ml Oral Susp UD PO SCH ×4 (00:38→17:09)
[2017-02-01] MEDS: Acetylcysteine 20% Inhal Soln (4ml) INH SCH ×3 (01:50→14:31)
[2017-02-01] MEDS: Albuterol-Ipratrop 3 mg / 0.5 (3 ml) UD INH SCH ×3 (01:50→14:31)
[2017-02-01] MEDS: Piperacill/Tazo 3.375gm in Dex 3.375 GM/50 ML BAG IVPB SCH ×3 (03:05→17:41)
[2017-02-01 06:19] LABS: BASO % 0.2 % (0.0-2.0); EOS % 0.5 % (0.0-4.0); HEMATOCRIT 24.7 % (34.0-47.0); LYMPH # 0.3 K/uL (1.0-4.3); LYMPH % 4.9 % (20.0-40.0); MEAN CELL VOLUME 95.9 fL (81.0-99.0); MEAN CORPUSCULAR HEMOGLOBIN 32.4 pg (27.0-31.0); MEAN CORPUSCULAR HGB CONC 33.8 g/dL (33.0-37.0); MEAN PLATELET VOLUME 8.7 fL (7.2-11.7); MONO # 0.1 K/uL (0.0-0.8); MONO % 1.5 % (0.0-10.0); PLATELET COUNT 80 K/uL (130-400); RED CELL DISTRIBUTION WIDTH 17.2 % (11.5-14.5); WHITE BLOOD COUNT 6.5 K/uL (4.8-10.8)
[2017-02-01] MEDS: Pantoprazole 40 mg Susp UD PO SCH (06:27)
[2017-02-01 06:32] LABS: CHLORIDE 93 mmol/L (98-107); POTASSIUM 3.5 mmol/L (3.6-5.2); SODIUM 131 mmol/L (132-148)
[2017-02-01 06:34] LABS: ALB/GLOB RATIO 0.8 (1.0-2.1); AST/SGOT 12 U/L (14-36); BILIRUBIN,TOTAL 1.1 mg/dL (0.2-1.3); BLOOD UREA NITROGEN 8 mg/dL (7-17); CARBON DIOXIDE 29 mmol/L (22-30); GFR AFRICAN-AMERICAN > 60; TOTAL PROTEIN 4.9 g/dL (6.3-8.3)
[2017-02-01 06:35] LABS: ALKALINE PHOSPHATASE 67 U/L (38-126); ALT/SGPT 36 U/L (9-52); CALCIUM 7.6 mg/dl (8.6-10.4); GLUCOSE,RANDOM 106 mg/dL (65-105); MAGNESIUM 1.8 mg/dL (1.6-2.3); PHOSPHOROUS 2.3 mg/dL (2.5-4.5)
[2017-02-01] MEDS: Budesonide 0.5 mg/2 ml Inhal Susp UD INH SCH (07:32)
[2017-02-01 08:52] LABS: NEUTROPHIL 84 % (50-75); TOTAL CELLS COUNTED 100
[2017-02-01] MEDS ORDERED: Potassium Chloride 20 mEq/15 ml LIQ UD PO ONE ×2 (09:12→09:15)
[2017-02-01] MEDS: Magnesium Sulfate 1 gm in D5W 1 GM/100 ML BAG IVPB SCH ×2 (09:39→10:15)
[2017-02-01] MEDS: Linezolid 600 mg in D5W 300 ml 600 MG/300 ML BAG IVPB SCH (09:57)
--- NOTE | 2017-02-01 12:54 | CP.CCUPN ---
CCU Subjective - Physician Review Subjective (Free Text): Patient was seen and examined at bedside. Patient was sleeping comfortably in bed. Patient denies any discomfort such as chest pain, SOB, palpitations, nausea, abdominal pain, fever and chills. Patient states that she is very comfortable. CCU Objective - Vital Signs / Intake & Output Vital Signs (Last 4 hours): Vital Signs Pulse Resp BP Pulse Ox 02/01/17 10:03 114 H 27 H 98/54 L 97 02/01/17 10:00 116 H 31 H 97 02/01/17 09:46 119 H 27 H 93/51 L 95 02/01/17 09:45 119 H 37 H 74/50 L 95 02/01/17 09:03 123 H 23 86/48 L 98 02/01/17 09:00 123 H 21 99 Intake and Output (Last 8hrs): Intake & Output 01/31/17 02/01/17 02/01/17 22:59 06:59 14:59 Intake Total 772 50 700 Output Total 170 180 100 Balance 602 -130 600 Weight 150 lb Intake: Intake, IV Amount 772 50 600 Right PICC 772 50 250 Right Upper arm 350 Oral 0 0 100 Output: Urine 170 180 100 Urethral ([place]) 170 180 100 Other: # Bowel Movements 1 - Physical Exam Head: Positive for: Atraumatic Extroacular Muscles: Positive for: EOMI Respiratory/Chest: Positive for: Good Air Exchange (anteriorly and on 3L NC ) Cardiovascular: Positive for: Regular Rate and Rhythm, Normal S1, S2 Abdomen: Positive for: Normal Bowel Sounds. Negative for: Tenderness, Distention Upper Extremity: Positive for: Swelling (Improving ) Lower Extremity: Positive for: Swelling (Improving ) Neurological: Positive for: GCS=15, Speech Normal Skin: Positive for: Normal Color Psychiatric: Positive for: Alert, Oriented x 3 - Medications Active Medications: Active Medications Generic Name Dose Route Start Last Admin Trade Name Freq PRN Reason Stop Dose Admin Acetaminophen 650 mg 01/31/17 20:30 Tylenol 325mg Tab PO Q6 PRN Fever >100.4 F Acetylcysteine 4 ml 01/29/17 14:00 02/01/17 07:32 Acetylcysteine 20% INH Not Given RQ6 RAUL Albuterol/Ipratropium 3 ml 01/29/17 02:00 02/01/17 07:32 Duoneb 3 Mg/0.5 Mg (3 Ml) Ud INH Not Given RQ6 RAUL Budesonide 0.5 mg 01/26/17 08:00 02/01/17 07:32 Pulmicort Respules INH Not Given RQ12 RAUL Linezolid 600 mg in 300 mls @ 200 mls/hr 01/27/17 22:00 02/01/17 09:57 Zyvox 600mg/300ml D5w IVPB 200 mls/hr Q12 RAUL Administration Piperacillin Sod/Tazobactam Sod 3.375 gm in 50 mls @ 100 mls/hr 01/28/17 18: 30 02/01/17 11:35 Zosyn 3.375 Gm Iv Premix IVPB 100 mls/hr Q8H RAUL Administration Morphine Sulfate 1 mg 01/30/17 19:45 01/31/17 14:05 Morphine IV 1 mg Q4H PRN Administration pain (any) Pantoprazole Sodium 40 mg 01/26/17 06:00 02/01/17 06:27 Protonix Susp PO Not Given 0600 RAUL Rosuvastatin Calcium 5 mg 01/26/17 22:00 01/31/17 21:20 Crestor PO Not Given HS RAUL Sucralfate 1 gm 01/26/17 06:00 02/01/17 11:54 Carafate Oral Susp PO 1 gm Q6 RAUL Administration - Patient Studies Lab Studies: Lab Studies 02/01/17 02/01/17 02/01/17 Range/Units 11:53 08:55 06:04 WBC (4.8-10.8) K/uL RBC (3.80-5.20) Mil/uL Hgb (11.0-16.0) g/dL Hct (34.0-47.0) % MCV (81.0-99.0) fL MCH (27.0-31.0) pg MCHC (33.0-37.0) g/dL RDW (11.5-14.5) % Plt Count (130-400) K/uL MPV (7.2-11.7) fL Neut % (Auto) (50.0-75.0) % Lymph % (Auto) (20.0-40.0) % [place] % (Auto) (0.0-10.0) % Eos % (Auto) (0.0-4.0) % Baso % (Auto) (0.0-2.0) % Neut # (1.8-7.0) K/uL Lymph # (1.0-4.3) K/uL [place] # (0.0-0.8) K/uL Eos # (0.0-0.7) K/uL Baso # (0.0-0.2) K/uL Neutrophils % (Manual) (50-75) % Band Neutrophils % (0-2) % Lymphocytes % (Manual) (20-40) % Monocytes % (Manual) (0-10) % Platelet Estimate (NORMAL) Hypochromasia (manual) Poikilocytosis (manual Basophilic Stippling Anisocytosis (manual) Sodium 131 L (132-148) mmol/L Potassium 3.5 L (3.6-5.2) mmol/L Chloride 93 L (98-107) mmol/L Carbon Dioxide 29 (22-30) mmol/L Anion Gap 13 (10-20) BUN 8 (7-17) mg/dL Creatinine 0.4 L (0.7-1.2) mg/dL Est GFR ( Amer) > 60 Est GFR (Non-Af Amer) > 60 POC Glucose (mg/dL) 126 H 110 (65-110) mg/dL Random Glucose 106 H (65-105) mg/dL Calcium 7.6 L (8.6-10.4) mg/dl Phosphorus 2.3 L (2.5-4.5) mg/dL Magnesium 1.8 (1.6-2.3) mg/dL Total Bilirubin 1.1 (0.2-1.3) mg/dL AST 12 L (14-36) U/L ALT 36 (9-52) U/L Alkaline Phosphatase 67 (38-126) U/L Total Protein 4.9 L (6.3-8.3) g/dL Albumin 2.2 L (3.5-5.0) g/dL Globulin 2.7 (2.2-3.9) gm/dL Albumin/Globulin Ratio 0.8 L (1.0-2.1) 02/01/17 01/31/17 Range/Units 06:04 16:10 WBC 6.5 (4.8-10.8) K/uL RBC 2.58 L (3.80-5.20) Mil/uL Hgb 8.4 L (11.0-16.0) g/dL Hct 24.7 L (34.0-47.0) % MCV 95.9 (81.0-99.0) fL MCH 32.4 H (27.0-31.0) pg MCHC 33.8 (33.0-37.0) g/dL RDW 17.2 H (11.5-14.5) % Plt Count 80 L (130-400) K/uL MPV 8.7 (7.2-11.7) fL Neut % (Auto) 92.9 H (50.0-75.0) % Lymph % (Auto) 4.9 L (20.0-40.0) % [place] % (Auto) 1.5 (0.0-10.0) % Eos % (Auto) 0.5 (0.0-4.0) % Baso % (Auto) 0.2 (0.0-2.0) % Neut # 6.0 (1.8-7.0) K/uL Lymph # 0.3 L (1.0-4.3) K/uL [place] # 0.1 (0.0-0.8) K/uL Eos # 0.0 (0.0-0.7) K/uL Baso # 0.0 (0.0-0.2) K/uL Neutrophils % (Manual) 84 H (50-75) % Band Neutrophils % 9 H (0-2) % Lymphocytes % (Manual) 4 L (20-40) % Monocytes % (Manual) 3 (0-10) % Platelet Estimate Decreased L (NORMAL) Hypochromasia (manual) Slight Poikilocytosis (manual Slight Basophilic Stippling Slight Anisocytosis (manual) Slight Sodium (132-148) mmol/L Potassium (3.6-5.2) mmol/L Chloride (98-107) mmol/L Carbon Dioxide (22-30) mmol/L Anion Gap (10-20) BUN (7-17) mg/dL Creatinine (0.7-1.2) mg/dL Est GFR ( Amer) Est GFR (Non-Af Amer) POC Glucose (mg/dL) 155 H (65-110) mg/dL Random Glucose (65-105) mg/dL Calcium (8.6-10.4) mg/dl Phosphorus (2.5-4.5) mg/dL Magnesium (1.6-2.3) mg/dL Total Bilirubin (0.2-1.3) mg/dL AST (14-36) U/L ALT (9-52) U/L Alkaline Phosphatase (38-126) U/L Total Protein (6.3-8.3) g/dL Albumin (3.5-5.0) g/dL Globulin (2.2-3.9) gm/dL Albumin/Globulin Ratio (1.0-2.1) Laboratory Results - last 24 hr 01/31/17 02/01/17 02/01/17 16:10 06:04 06:04 WBC 6.5 RBC 2.58 L Hgb 8.4 L Hct 24.7 L MCV 95.9 MCH 32.4 H MCHC 33.8 RDW 17.2 H Plt Count 80 L MPV 8.7 Neut % (Auto) 92.9 H Lymph % (Auto) 4.9 L [place] % (Auto) 1.5 Eos % (Auto) 0.5 Baso % (Auto) 0.2 Neut # 6.0 Lymph # 0.3 L [place] # 0.1 Eos # 0.0 Baso # 0.0 Neutrophils % (Manual) 84 H Band Neutrophils % 9 H Lymphocytes % (Manual) 4 L Monocytes % (Manual) 3 Platelet Estimate Decreased L Hypochromasia (manual) Slight Poikilocytosis (manual Slight Basophilic Stippling Slight Anisocytosis (manual) Slight Sodium 131 L Potassium 3.5 L Chloride 93 L Carbon Dioxide 29 Anion Gap 13 BUN 8 Creatinine 0.4 L Est GFR ( Amer) > 60 Est GFR (Non-Af Amer) > 60 POC Glucose (mg/dL) 155 H Random Glucose 106 H Calcium 7.6 L Phosphorus 2.3 L Magnesium 1.8 Total Bilirubin 1.1 AST 12 L ALT 36 Alkaline Phosphatase 67 Total Protein 4.9 L Albumin 2.2 L Globulin 2.7 Albumin/Globulin Ratio 0.8 L 02/01/17 02/01/17 08:55 11:53 WBC RBC Hgb Hct MCV MCH MCHC RDW Plt Count MPV Neut % (Auto) Lymph % (Auto) [place] % (Auto) Eos % (Auto) Baso % (Auto) Neut # Lymph # [place] # Eos # Baso # Neutrophils % (Manual) Band Neutrophils % Lymphocytes % (Manual) Monocytes % (Manual) Platelet Estimate Hypochromasia (manual) Poikilocytosis (manual Basophilic Stippling Anisocytosis (manual) Sodium Potassium Chloride Carbon Dioxide Anion Gap BUN Creatinine Est GFR ( Amer) Est GFR (Non-Af Amer) POC Glucose (mg/dL) 110 126 H Random Glucose Calcium Phosphorus Magnesium Total Bilirubin AST ALT Alkaline Phosphatase Total Protein Albumin Globulin Albumin/Globulin Ratio Fingerstick Blood Sugar Results: 115 Review of Systems - Constitutional Constitutional: Weakness. absent: Fever, Chills - EENT Eyes: absent: Blurred Vision, Change in Vision Ears: absent: Dizziness - Cardiovascular Cardiovascular: absent: Chest Pain, Diaphoresis, Dyspnea, Lightheadedness, Palpitations - Respiratory Respiratory: absent: Dyspnea, Wheezing, Pain on Inspiration - Gastrointestinal Gastrointestinal: absent: Abdominal Pain, Nausea, Vomiting - Neurological Neurological: Weakness - Endocrine Endocrine: Fatigue. 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), GI bleeding who presented with respiratory distress and found to be hypoxic and hypotensive at the skilled nursing Plan: Transfer to med-surg Plan: Neuro: Alert, Cardio: No acute issues, hx of HLD Medication/management; * Crestor 5mg PO HS Pulm: Respiratory distress, hypoxic on admission (Pneumonia) Chest X-ray: Patchy consolidative changes at the left lung base with small left Pleural effusion Medication and management: * 3L NC * Acetylcysteine 20% 4ml INH RQ6 * Albuterol 3mL INH RQ6 * Pulmicort 0.5mg INH RQ12H * Alternating between BIpap and 3L NC * Linezolid 600mg IVPB Q12H * Zosyn 3.375gm IVPB Q8H GI: Hx of GI bleed * Stool occult blood (Positive, 01/28/17) Medication/Management: * No anticoagulation * Protonix 40mg PO daily * Sucralfate 1gm PO Q6 Endo: No acute issues Renal: Electrolyte imbalance (Hypokalemia): * Hypomagnesemia and hypophosphatemia, resolved * Electrolytes repleted appropriately * Continue to monitor with am CMP ID: Pneumonia, Bandemia, Afebrile Chest X-ray: Patchy consolidative changes at the left lung base with small left Pleural effusion (01/30/17) * Bandemia trending down * Negative urine culture and blood culture (01/25/17) Medication/Management: * Linezolid 600mg IVPB Q12H * Zosyn 3.375gm IVPB Q8H Prophylaxis: DVT: Anticoagulation contraindicated due to positive stool occult (01/28/17) GI: Protonix 40mg PO daily Pain control: Morphine 1mg IVP Q4H prn PT/OT Plan: Transfer to [facility]-surg
[2017-02-01] MEDS ORDERED: Morphine 10 mg/5 ml Oral Soln PO PRN (15:02)
[2017-02-01 16:09] VITALS: TEMP 98.3
[2017-02-01] MEDS ORDERED: Mupirocin 2% Ointment (NASAL) NAS SCH (18:00)
[2017-02-01 18:30] VITALS: BP 91/40; PULSE 121; RESP 19; O2SAT 97
--- NOTE | 2017-02-01 18:48 | CP.PCM.DIS ---
Provider - Provider Date of Admission: 01/26/17 00:11 Attending physician: Sascha Dumont MD Primary care physician: Dr. Sascha Dumont Consults: Dr. Jordin Bonilla Time Spent in preparation of Discharge (in minutes): 60 Diagnosis - Discharge Diagnosis (1) Respiratory distress Status: Acute Priority: High (2) Bandemia without diagnosis of specific infection Status: Acute Priority: Medium (3) Multiple sclerosis Status: Chronic Priority: Low (4) Electrolyte imbalance Status: Acute Hospital Course - Lab Results Lab Results: Micro Results 01/25/17 21:10 Blood-Venous Blood Culture - Final NO GROWTH AFTER 5 DAYS 01/25/17 21:10 Blood-Venous Gram Stain - Final TEST NOT PERFORMED 01/25/17 20:20 Blood-Venous Blood Culture - Final NO GROWTH AFTER 5 DAYS 01/25/17 20:20 Blood-Venous Gram Stain - Final TEST NOT PERFORMED 01/26/17 Unknown Naris MRSA Culture (Admit) - Final 01/25/17 22:52 Urine,Clean Catch Urine Culture - Final No Growth (<1,000 CFU/ML) Most Recent Lab Values WBC 6.5 K/uL (4.8-10.8) 02/01/17 06:04 RBC 2.58 Mil/uL (3.80-5.20) L 02/01/17 06:04 Hgb 8.4 g/dL (11.0-16.0) L 02/01/17 06:04 Hct 24.7 % (34.0-47.0) L 02/01/17 06:04 MCV 95.9 fL (81.0-99.0) 02/01/17 06:04 MCH 32.4 pg (27.0-31.0) H 02/01/17 06:04 MCHC 33.8 g/dL (33.0-37.0) 02/01/17 06:04 RDW 17.2 % (11.5-14.5) H 02/01/17 06:04 Plt Count 80 K/uL (130-400) L 02/01/17 06:04 MPV 8.7 fL (7.2-11.7) 02/01/17 06:04 Neut % (Auto) 92.9 % (50.0-75.0) H 02/01/17 06:04 Lymph % (Auto) 4.9 % (20.0-40.0) L 02/01/17 06:04 [place] % (Auto) 1.5 % (0.0-10.0) 02/01/17 06:04 Eos % (Auto) 0.5 % (0.0-4.0) 02/01/17 06:04 Baso % (Auto) 0.2 % (0.0-2.0) 02/01/17 06:04 Neut # 6.0 K/uL (1.8-7.0) 02/01/17 06:04 Lymph # 0.3 K/uL (1.0-4.3) L 02/01/17 06:04 [place] # 0.1 K/uL (0.0-0.8) 02/01/17 06:04 Eos # 0.0 K/uL (0.0-0.7) 02/01/17 06:04 Baso # 0.0 K/uL (0.0-0.2) 02/01/17 06:04 Neutrophils % (Manual) 84 % (50-75) H 02/01/17 06:04 Band Neutrophils % 9 % (0-2) H 02/01/17 06:04 Lymphocytes % (Manual) 4 % (20-40) L 02/01/17 06:04 Reactive Lymphs % 1 % (0-0) H 01/28/17 06:09 Monocytes % (Manual) 3 % (0-10) 02/01/17 06:04 Eosinophils % (Manual) 1 % (0-4) 01/29/17 05:51 Myelocytes % 1 % (0-0) H 01/26/17 03:23 Nucleated RBC % 1 % (0-0) H 01/25/17 20:26 Platelet Estimate Decreased (NORMAL) L 02/01/17 06:04 Large Platelets Present 01/28/17 06:09 Polychromasia Slight 01/27/17 06:12 Hypochromasia (manual) Slight 02/01/17 06:04 Poikilocytosis (manual Slight 02/01/17 06:04 Basophilic Stippling Slight 02/01/17 06:04 Anisocytosis (manual) Slight 02/01/17 06:04 Microcytosis (manual) Slight 01/28/17 06:09 Ovalocytes Slight 01/31/17 06:32 PT 9.6 SECONDS (9.7-12.2) L 01/25/17 20:26 INR 0.9 01/25/17 20:26 APTT 25 SECONDS (21-34) 01/25/17 20:26 Puncture Site Rr 01/26/17 02:25 pCO2 45 mm/Hg (35-45) 01/26/17 02:25 pO2 62 mm/Hg (80-100) L 01/26/17 02:25 HCO3 25.5 mmol/L (21-28) 01/26/17 02:25 ABG pH 7.38 (7.35-7.45) 01/26/17 02:25 ABG Total CO2 28.0 mmol/L (22-28) 01/26/17 02:25 ABG O2 Saturation 94.9 % (95-98) L 01/26/17 02:25 ABG Base Excess 1.0 mmol/L (-2.0-3.0) 01/26/17 02:25 ABG Hemoglobin 11.1 g/dL (11.7-17.4) L 01/25/17 21:32 ABG Carboxyhemoglobin 2.8 % (0.5-1.5) H 01/25/17 21:32 POC ABG HHb (Measured) 5.3 % (0.0-5.0) H 01/25/17 21:32 ABG Methemoglobin 1.3 % (0.0-3.0) 01/25/17 21:32 Jose Maria Test Pos 01/26/17 02:25 ABG Potassium 3.1 mmol/L (3.6-5.2) L 01/26/17 02:25 A-a O2 Difference 381.0 mm/Hg 01/26/17 02:25 Respiratory Index 6.1 01/26/17 02:25 Hgb O2 Saturation 90.5 % (95.0-98.0) L 01/25/17 21:32 Sodium 140.0 mmol/l (132-148) 01/26/17 02:25 Chloride 112.0 mmol/L (98-107) H 01/26/17 02:25 Glucose 156 mg/dl (65-105) H 01/26/17 02:25 Lactate 0.9 mmol/L (0.7-2.1) 01/26/17 02:25 Vent Mode Bipap 01/26/17 02:25 Mechanical Rate 15 01/25/17 21:32 FiO2 70.0 % 01/26/17 02:25 Inspiratory BiPAP 13 01/26/17 02:25 Expiratory BiPAP 6 01/26/17 02:25 Crit Value Called To Dr. ariel headley 01/25/17 20:25 Crit Value Called By Meet rt 01/25/17 20:25 Crit Value Read Back Y 01/25/17 20:25 Blood Gas Notified Time 202701/25/17 20:25 Sodium 131 mmol/L (132-148) L 02/01/17 06:04 Potassium 3.5 mmol/L (3.6-5.2) L 02/01/17 06:04 Chloride 93 mmol/L (98-107) L 02/01/17 06:04 Carbon Dioxide 29 mmol/L (22-30) 02/01/17 06:04 Anion Gap 13 (10-20) 02/01/17 06:04 BUN 8 mg/dL (7-17) 02/01/17 06:04 Creatinine 0.4 mg/dL (0.7-1.2) L 02/01/17 06:04 Est GFR ( Amer) > 60 02/01/17 06:04 Est GFR (Non-Af Amer) > 60 02/01/17 06:04 POC Glucose (mg/dL) 80 mg/dL (65-110) 02/01/17 16:30 Random Glucose 106 mg/dL (65-105) H 02/01/17 06:04 Calcium 7.6 mg/dl (8.6-10.4) L 02/01/17 06:04 Phosphorus 2.3 mg/dL (2.5-4.5) L 02/01/17 06:04 Magnesium 1.8 mg/dL (1.6-2.3) 02/01/17 06:04 Iron 20 ug/dL (37-170) L 01/30/17 06:19 TIBC 152 ug/dL (250-450) L 01/30/17 06:19 % Saturation 13 (20-55) L 01/30/17 06:19 Ferritin 304.0 ng/mL 01/30/17 06:19 Total Bilirubin 1.1 mg/dL (0.2-1.3) 02/01/17 06:04 AST 12 U/L (14-36) L 02/01/17 06:04 ALT 36 U/L (9-52) 02/01/17 06:04 Alkaline Phosphatase 67 U/L (38-126) 02/01/17 06:04 NT-Pro-B Natriuret Pep 2490 pg/mL (0-900) H 01/30/17 06:19 Total Protein 4.9 g/dL (6.3-8.3) L 02/01/17 06:04 Albumin 2.2 g/dL (3.5-5.0) L 02/01/17 06:04 Globulin 2.7 gm/dL (2.2-3.9) 02/01/17 06:04 Albumin/Globulin Ratio 0.8 (1.0-2.1) L 02/01/17 06:04 Procalcitonin 1.02 NG/ML (0.19-0.49) H 01/26/17 03:23 Cortisol AM Sample 19.9 ug/dL (4.46-22.7) 01/26/17 03:23 Arterial Blood Potassium 3.1 mmol/L (3.6-5.2) L 01/26/17 02:25 Urine Color Straw (YELLOW) 01/25/17 22:49 Urine Clarity Clear (Clear) 01/25/17 22:49 Urine pH 7.0 (5.0-8.0) 01/25/17 22:49 Ur Specific [place] 1.004 (1.003-1.030) 01/25/17 22:49 Urine Protein Negative mg/dL (NEGATIVE) 01/25/17 22:49 Urine Glucose (UA) Normal mg/dL (Normal) 01/25/17 22:49 Urine Ketones Negative mg/dL (NEGATIVE) 01/25/17 22:49 Urine Blood 1+ (NEGATIVE) H 01/25/17 22:49 Urine Nitrate Negative (NEGATIVE) 01/25/17 22:49 Urine Bilirubin Negative (NEGATIVE) 01/25/17 22:49 Urine Urobilinogen Normal mg/dL (0.2-1.0) 01/25/17 22:49 Ur Leukocyte Esterase Neg Tisha/uL (Negative) 01/25/17 22:49 Urine WBC (Auto) 3 /hpf (0-5) 01/25/17 22:49 Urine RBC (Auto) 5 /hpf (0-3) H 01/25/17 22:49 Ur Squamous Epith Cells 2 /hpf (0-5) 01/25/17 22:49 Ur Random Sodium 115 mmol/L 01/26/17 03:23 Urine Chloride 117 mmol/L (32-290) 01/26/17 03:23 VMA/Creatinine Ratio 37.5 mg/g creat (1.1-4.1) H 01/26/17 03:23 Stool Occult Blood Positive (NEGATIVE) H 01/28/17 08:02 C. difficile Ag & Toxin Negative (NEGATIVE) 01/28/17 08:40 - Hospital Course Hospital Course: This is the 2nd admission for this patient with progressive end-stage multiple sclerosis who had been a resident of [facility] for the past 5 years or so. Pt was essentially stable for a long time, but in the last last 1.5 years, pt began to have frequent admissions for various infections, and pt, who used to be able to wheel herself out of her room, and to be able to socialize, had begun staying by herself in her room. Further, she started staying in bed all the time, c/o pain. Patient remained pleasant in demeanor and was always very pleased to see me on my rounds at the [place]. > This year, pt developed several bouts of UTI and pneumonia, some requiring acute care admission, others were turned around by treating her co-illness at the [place]. Pt was recently admitted for bilateral pneumonia requiring intubation, and was eventually rescued after a 2 week stint on the vent. 5 days later, pt found to be non-responsive in the early evening and was transferred back to this hospital, again with pneumonia in the same locations as before. She did not require intubation at this time though it may have been appropriate, but instead we opted for bipap ventilation. She was improving, albeit gradually, until one day, she said that she was tired and did not want any more interventions. Even a needlestick for blood draws were very painful, and touching her became agony. Family conference recalled after palliatrive care consult obtained (again), and this time, DNR/DNI was put into place. I asked permission to call hospice in for pt, and family agreed. Pt was shortly transferred back to [facility] for long-term care until mechanisms put in place for hospice company to come in with end-of-life care. Family (Demi and Katrina and Hi) were aware of all these events that transpired and were in agreement. Discharge Exam - Head Exam Head Exam: ATRAUMATIC, NORMAL INSPECTION, NORMOCEPHALIC Discharge Plan - Discharge Medications Prescriptions: Morphine [Morphine Oral Soln] 1 mg PO Q4H PRN #1 10 PRN Reason: respiratory distress - Follow Up Plan Condition: CRITICAL Disposition: [facility]
--- NOTE | 2017-02-04 13:26 | CP.PCM.CON ---
History of Present Illness - History of Present Illness History of Present Illness: [place]: Shortness of breath History of present illness: 76-year-old female with a history of multiple sclerosis, paraplegia, DVT, pulmonary embolism, IVC filter, diabetes, recurrent GI bleed recently hospitalized with acute respiratory failure, but there repeated intubation. Patient came to the emergency room with increasing shortness of breath, hypoxia , and placed on BiPAP in the ICU. Intensive care unit evaluation, and the pulmonary evaluation was called. Patient is now awake and responding, but easily sleeping. Accessory muscle use noted. On BiPAP. Difficulty in breathing noted, minimal cough noted. Patient is not able to clear the throat. There is no fever noted. No vomiting noted. Past medical history: Hypertension, diabetes, hypercholesterolemia, DVT, pulmonary embolism, status post IVC filter, history of multiple sclerosis Surgical history: IVC filter. The current intubation in the past. Allergies: Allergic to aspirin and iodine. Social history: Nonsmoker nonalcoholic lives in [facility]. Family history noncontributory Review of system: Patient is currently on BiPAP, responding to verbal commands, sleepy noted. Patient in distress at this time. Cough noted. Fever negative. Diarrhea noted. Swelling noted. Ration is also having increasing weakness and muscle weakness noted On examination: Vital signs noted, mildly tachycardia hypoxia noted. On BiPAP. Mild distress noted. Chest decreased air entry in the right lung. Regular heart sound. Wheezing noted. Abdomen soft nontender, edema noted Labs reviewed Elevated carbon dioxide level noted in the blood. Chest x-ray showing right lower lung atelectasis is noted. Pneumonia present. Assessment and recommendation: 76-year-old female now admitted with acute respiratory failure, with chronic respiratory insufficiency. Multiple sclerosis, complicating with the aspirated distress. Patient needing respiratory ventilation support. Overall prognosis is poor. Patient may need reintubation. Continue the IV antibiotic. Bronchodilators. Noninvasive ventilatory support. Spoke to the family. Spoke to the PMD. Will follow the patient Past Patient History - Infectious Disease Hx of Infectious Diseases: MRSA - Tetanus Immunizations Tetanus Immunization: Up to Date - Past Medical History & Family History Past Medical History?: Yes - Past Social History Smoking Status: Never Smoked Chewing Tobacco Use: No Alcohol: None Drugs: Denies Home Situation {Lives}: [facility] Domestic Violence: Negative - CARDIAC Hx Cardiac Disorders: Yes Hx Angina: No Hx Atrial Fibrillation: No (resolved) Hx Cardia Arrhythmia: Yes Hx Congestive Heart Failure: No Hx Hypercholesterolemia: Yes Hx Hypertension: Yes Hx Mitral Valve Prolapse: No Hx Pacemaker: No Hx Peripheral Edema: Yes - PULMONARY Hx Respiratory Disorders: Yes Hx Asthma: Yes Hx Bronchitis: Yes Hx Chronic Obstructive Pulmonary Disease (COPD): Yes Hx Emphysema: No Hx Pneumonia: No Hx Pulmonary Embolism: Yes Hx Respiratory Tract Infection: Yes Hx Sleep Apnea: No - NEUROLOGICAL Hx Neurological Disorder: Yes Hx Alzheimer's Disease: No Hx Dementia: No Hx Migraine: No Hx Multiple Sclerosis: Yes Hx Parkinson's Disease: No Hx Seizures: No Hx Transient Ischemic Attacks (TIA): No Hx Vertigo: No - HEENT Hx HEENT Problems: Yes Hx Blind: No Hx Cataracts: Yes Hx Difficulty Chewing: No Hx Epistaxis: No Hx Glaucoma: No Hx Macular Degeneration: No Other/Comment: wears eyeglasses for reading - RENAL Hx Chronic Kidney Disease: Yes - ENDOCRINE/METABOLIC Hx Endocrine Disorders: No Hx Hyperthyroidism: No Hx Hypothyroidism: No Other/Comment: Osteoporosis/osteoppenia - HEMATOLOGICAL/ONCOLOGICAL Hx Blood Disorders: Yes Hx AIDS: No Hx Anemia: Yes Hx Blood Transfusions: Yes Hx Blood Transfusion Reaction: No - INTEGUMENTARY Hx Dermatological Problems: Yes Hx Eczema: Yes Hx Melanoma: No Hx Psoriasis: No Hx Squamous Cell: No Other/Comment: > hx of garvin hong syndrome, unknown precipitant. > hx of bullous pemphigoid - MUSCULOSKELETAL/RHEUMATOLOGICAL Hx Arthritis: Yes Hx Falls: Yes Hx Fractures: No Hx Osteoporosis: Yes Hx Rheumatoid Arthritis: Yes - GASTROINTESTINAL Hx Gastrointestinal Disorders: Yes Hx Constipation: Yes - GENITOURINARY/GYNECOLOGICAL Hx Genitourinary Disorders: Yes Hx Incontinence: Yes Other/Comment: wears a diaper in the [facility] (as with all patients) - PSYCHIATRIC Hx Psychophysiologic Disorder: Yes Hx Anxiety: Yes Hx Depression: Yes Hx Substance Use: No - SURGICAL HISTORY Hx Surgeries: Yes Other/Comment: IVC filter 5-6 years ago for b/l DVT - ANESTHESIA Hx Anesthesia: Yes Hx Anesthesia Reactions: No Hx Malignant Hyperthermia: No Has any member of the family had a problem w/ anesthesia?: No Meds Home Medications: Home Medication List Medication Instructions Recorded Confirmed Type Acetaminophen [Tylenol 325mg tab] 650 mg PO Q6 PRN tab 02/01/17 Rx Acetylcysteine 20% 4 ml INH RQ6 vial 02/01/17 Rx Albuterol/Ipratropium [Duoneb 3 3 ml INH RQ6 neb 02/01/17 Rx mg/0.5 mg (3 ml) UD] Budesonide [Pulmicort Respules] 0.5 mg INH RQ12 neb 02/01/17 Rx Furosemide [Lasix] 20 mg PO DAILY PRN #0 02/01/17 01/25/17 Rx Morphine [Morphine Oral Soln] 1 mg PO Q4H PRN #1 10 02/01/17 Rx Potassium Chloride [Potassium 40 meq PO ONCE udc 02/01/17 Rx Chloride Oral Soln] Sucralfate [Carafate Oral Susp] 1 gm PO Q6 PRN #0 udc 02/01/17 01/25/17 Rx predniSONE [predniSONE Tab] 20 mg PO DAILY 4 Days #0 tab 02/01/17 01/25/17 Rx Allergies/Adverse Reactions: Allergies Allergy/AdvReac Type Severity Reaction Status Date / Time ascorbic acid Allergy Severe ANAPHYLAXIS Verified 01/25/17 19:38 aspirin Allergy RASH Verified 01/25/17 19:38 iodine Allergy RASH Verified 01/25/17 19:38 Ponds cream Allergy Severe ANAPHYLAXIS Uncoded 05/07/16 00:13 Results - Vital Signs Recent Vital Signs: Last Vital Signs Temp 98.3 F 02/01/17 16:00 Pulse 121 H 02/01/17 17:00 Resp 19 02/01/17 17:00 BP 91/40 L 02/01/17 16:54 Pulse Ox 97 02/01/17 17:00 - Labs Result Diagrams: 02/01/17 06:04 02/01/17 06:04
--- NOTE | 2017-02-04 13:29 | CP.PCM.PN ---
Subjective - Date & Time of Evaluation Date of Evaluation: 01/31/17 Time of Evaluation: 13:29 - Subjective Subjective: Family signed a DNR. No aggressive treatment at this time. Patient does not want to be intubated. Does not want any x-rays done at this time. On BiPAP. Poor intake noted. Does not want any aggressive treatment at this time. On examination: Vital signs are mildly tachycardic, respiratory distress noted. Regular heart sound. Edema noted. Assessment and recommendation: 76-year-old female with multiple sclerosis, hypertension, deep venous thrombosis , probably embolism, IVC filter admitted with acute pneumonia, complicating with the chronicus. Insufficiency. Overall prognosis is poor We'll continue the supportive care. Objective - Vital Signs/Intake and Output Vital Signs (last 24 hours): Temp Pulse Resp BP Pulse Ox 98.3 F 121 H 19 91/40 L 97 02/01/17 16:00 02/01/17 17:00 02/01/17 17:00 02/01/17 16:54 02/01/17 17:00 - Labs Labs: 02/01/17 06:04 02/01/17 06:04 PT 9.6 SECONDS (9.7-12.2) L 01/25/17 20:26 INR 0.9 01/25/17 20:26 APTT 25 SECONDS (21-34) 01/25/17 20:26
== END 2017-02-01 19:23 | DRG 193 ==
LOC: C.ER 19:15 → C.9I 01-26 00:11 → C.9E 01-26 00:11
PROVIDERS: ADMIT Family Medicine; ATTEND Family Medicine
PROC: 5A09457 Assistance with Respiratory Ventilation, 24-96 Consecutive Hours, Continuous Positive Airway Pressure (ICD-10-PCS; principal; 2017-01-26)
DX: J18.9 Pneumonia, unspecified organism (principal); J96.22 Acute and chronic respiratory failure with hypercapnia; J96.21 Acute and chronic respiratory failure with hypoxia; D61.818 Other pancytopenia; E87.2 Acidosis; G82.20 Paraplegia, unspecified; J44.0 Chronic obstructive pulmonary disease with (acute) lower respiratory infection; J98.11 Atelectasis; E11.22 Type 2 diabetes mellitus with diabetic chronic kidney disease; G35 Multiple sclerosis; D63.8 Anemia in other chronic diseases classified elsewhere; E78.00 Pure hypercholesterolemia, unspecified; I12.9 Hypertensive chronic kidney disease with stage 1 through stage 4 chronic kidney disease, or unspecified chronic kidney disease; E83.51 Hypocalcemia; M06.9 Rheumatoid arthritis, unspecified; M81.0 Age-related osteoporosis without current pathological fracture; N18.9 Chronic kidney disease, unspecified; Z66 Do not resuscitate; Z86.711 Personal history of pulmonary embolism; Z86.718 Personal history of other venous thrombosis and embolism; F32.9 Major depressive disorder, single episode, unspecified; Z74.01 Bed confinement status; Z87.440 Personal history of urinary (tract) infections; Z51.5 Encounter for palliative care